=== PATIENT | male | born 1940 | race Caucasian/White ===

== ENCOUNTER → 2017-09-05 12:16 | Outpatient (CLI) | payer MEDICARE, SELFPAY | PROVIDERS: PCP Family Medicine; Visit Provider Urology | DX: R97.20 Elevated prostate specific antigen [PSA] (principal) | CPT/HCPCS: 36415; 84153 ==

== ENCOUNTER 2017-11-19 11:18 | Day surgery (SDC) | payer MEDICARE, OTHER, SELFPAY ==
[2017-11-19] VITALS (7 sets, daily range): BP systolic 99–126; BP diastolic 55–72; PULSE 52–64; RESP 10–16; TEMP 36.3–37.1; O2SAT 94–100; BMI 24.2
--- NOTE | 2017-11-19 | PATH_ITS ---
[facility] Accession Number: [id number] . 01 Material submitted: . CECUM POLYP . 02 Diagnosis: Cecal Polyp: Tubular adenoma. MRV/11/20/2017 . 02 Electronically signed: . Basil Farr MD, PhD, Pathologist NPI- [id number] . 01 Gross description: . Received one formalin-filled container labeled with the patient's name and labeled cecum are three 0.2 to 0.3 cm portions of tissue and possible debris. Filtered, wrapped and entirely submitted in one cassette. ([facility]:[id number]) /[facility] . 02 Pathologist provided ICD-10: D12.0 . 02 CPT . 192879 Specimen Comment: A duplicate report has been generated due to demographic updates. Performed at: 01 [facility] [address] [id number] MD Elder Oakley MD Phone: [phone] [facility]formed at: [facility] [address] [place], [place] [id number] MD Artemio Celis MD Phone: [phone]
[2017-11-19] MEDS: SODIUM CHLORIDE 0.9% 1,000 ML 70 ML IV (11:35)
--- NOTE | 2017-11-19 11:39 | PM.HP.1 ---
History of Present Illness Date Patient Seen: 11/19/17 Chief complaint: [id number] Narrative: 77-year-old male with a history of colon polyps. His last colonoscopy was performed August 2009. Please refer to detailed note from Dr. Campbell on 11/04/2017. He has baseline constipation which he treats with milk of magnesia. Patient History Medical History Bilateral thigh pain (Chronic) Anxiety (Chronic Unknown) Arthritis (Chronic Unknown) Chronic back pain (Chronic 1965) Chronic fatigue (Chronic 2013) Coronary artery disease (Chronic) Depression (Chronic 2015) Erectile dysfunction (Chronic Unknown) Foot pain (Chronic ~2017) Hiatal hernia (Chronic Unknown) Hypercholesterolemia (Chronic Unknown) Hypertension (Chronic Unknown) Parkinson disease (Chronic Unknown) Proximal muscle weakness (Chronic) Chickenpox (Resolved Unknown) Mumps (Resolved Unknown) Surgical History Status post coronary artery bypass graft (Resolved) Status post tonsillectomy and adenoidectomy (Resolved) Family & Social History Tobacco & Substance use: Smoking Status Never smoker Meds Home Medications Medication Instructions Recorded Confirmed Type ASPIRIN (#ASPIRIN) Q DAY #0 09/03/10 11/04/17 History Glucose: Test Strips 0 str BID #100 08/24/12 11/04/17 Rx citalopram [Celexa] 20 mg PO QDAY #90 tab 12/27/16 11/04/17 Rx mirtazapine 45 mg tablet 45 mg PO BEDTIME #90 tab 09/30/17 11/04/17 Rx clonazepam 1 mg tablet 1.5 mg PO BID #270 tab 10/23/17 11/04/17 Rx cyclobenzaprine 10 mg tablet 10 mg PO Q8H PRN #30 tab 11/04/17 Rx pravastatin 20 mg tablet 20 mg PO BEDTIME #30 tab 11/04/17 Rx propranolol 40 mg tablet 20 mg PO BID #45 tab 11/04/17 Rx tamsulosin 0.4 mg capsule 0.4 mg PO DAILY #30 cap 11/04/17 Rx Allergies Allergy/AdvReac Type Severity Reaction Status Date / Time No Known Drug Allergies Allergy Verified 11/04/17 11:04 Review of Systems Review of Systems All systems reviewed & are unremarkable except as noted in HPI and below Exam Narrative Exam Narrative: General: Patient is well developed, not in apparent distress Cardiovascular: Regular rate and rhythm, no murmurs, rubs, or gallops; no evidence of edema; no palpable abdominal aortic aneurysm Gastrointestinal: Normoactive bowel sounds, soft, nontender, nondistended, no rebound tenderness, no hepatosplenomegaly, no evidence of hernia Assessment & Plan Plan: Assessment/Plan Narrative: 77-year-old male with history of Parkinson's who is here for colon polyp surveillance. Last colonoscopy was performed 2009 with removal of 1 adenomatous polyp. The patient currently has no active GI symptoms except for mild baseline constipation. Regarding the procedure(s), the risks and potential complications, benefits, and alternatives (including not doing the procedure) were discussed with the patient. The risks include but are not limited to bleeding, infection, perforation which may require surgical intervention, missed lesions, and adverse reactions to sedative medicines. After a question and answer period, the patient agreed to proceed with the procedure(s) and gives informed consent.
--- NOTE | 2017-11-19 12:12 | PM.OP.ENDO ---
Operative Date/Time/Diagnoses Date of procedure: 11/19/17 Procedure Notes Procedure in detail: Surgeon: Cesar Otto MD Procedure: Colonoscopy with snare polypectomy Preoperative diagnosis: Colon polyp surveillance; last colonoscopy 2009 showing tubular adenoma Postoperative diagnosis: Cecal polyp status post polypectomy, grade 2 internal hemorrhoids Medications: Conscious sedation using 5 mg IV of Midazolam and 150 mcg IV of Fentanyl Preanesthesia Assessment An H and P was performed/updated and the Px?s ASA class is 2. The procedure was discussed in detail with the patient. The potential risks and complications including infection, bleeding, missed lesions, perforation, need for surgery in case of perforation, prolonged hospital stay, and were explained. A brief question and answer period was allotted and once all questions were answered, informed consent was obtained. The patient was brought back to the procedure room and placed on standard monitoring. The patient?s vital signs were monitored continuously throughout the entire procedure. Prior to starting, a timeout was performed to confirm the patient?s identity, allergies, medications, and procedure. Procedure in detail The patient was placed in left lateral decubitus position and once adequate sedation was obtained a PAVEL was performed. The digital rectal examination did not reveal any palpable lesions. The tip of the colonoscope was placed in the anal canal and advanced without difficulty all the way to the cecum which was identified by the appendiceal orifice and the ileocecal valve. The terminal ileum was intubated to a distance of 5 cm from the ileocecal valve and the mucosa was normal. The colonoscope was brought back to the cecum and careful examination of all baldwin of the colon was performed with irrigation of any residual stool. In the cecum, there was note of a 6 mm sessile polyp which was removed using a cold snare. Excision and retrieval were complete with minimal bleeding. The remainder of the colon showed no further polyps. Retroflexion was performed in the rectum which revealed grade 2 internal hemorrhoids. The patient tolerated the procedure well and will be brought back to the recovery area to be discharged once criteria are met. The prep was judged to be excellent and adequate to identify polyps less than 5 mm. The withdrawal time was 9 min. The total physician intraservice time was 18 min. Complications There were no complications and estimated blood loss was minimal. Recommendations: Resume previous diet Continue outPx medications Follow up pathology results Repeat colonoscopy in 5 years. This will be dependent on the patient's medical issues at that time Office follow up on an as-needed basis An emergency contact number was given to the patient for any complications related to the procedure
[2017-11-19] MEDS: MIDAZOLAM 5 MG/5 ML VIAL IV (12:25)
[2017-11-19] MEDS: fentaNYL 250 MCG/5 ML INJ IV (12:26)
--- NOTE | 2017-11-19 12:36 | PM.DS.1 ---
History of Present Illness Chief complaint: [id number] Narrative: 77-year-old male with a history of colon polyps. His last colonoscopy was performed August 2009. Please refer to detailed note from Dr. Campbell on 11/04/2017. He has baseline constipation which he treats with milk of magnesia. Discharge Providers Primary care physician: Raoul Salguero MD Discharge provider: Cesar Otto MD Exam Vital Signs (past 8 hours): - 11/19/17 11:36 Temperature 97.4 F L Pulse Rate 61 Respiratory Rate 15 Blood Pressure 126/72 Pulse Oximetry 94 Oxygen Delivery Method Room Air Narrative Exam Narrative: General: Patient is well developed, not in apparent distress; positive upper extremity tremor Cardiovascular: Regular rate and rhythm, no murmurs, rubs, or gallops; no evidence of edema; no palpable abdominal aortic aneurysm Gastrointestinal: Normoactive bowel sounds, soft, nontender, nondistended, no rebound tenderness, no hepatosplenomegaly, no evidence of hernia Discharge Plan Discharge Plan Patient Disposition: Home Discharge Med Rec/Prescriptions Prescriptions: Continue tamsulosin 0.4 mg capsule 0.4 mg PO DAILY Qty: 30 RF: 2 cyclobenzaprine 10 mg tablet 10 mg PO Q8H PRN (Reason: muscle spasm) Qty: 30 RF: 2 pravastatin 20 mg tablet 20 mg PO BEDTIME Qty: 30 RF: 5 propranolol 40 mg tablet 20 mg PO BID Qty: 45 RF: 3 ASPIRIN (#ASPIRIN) Q DAY Qty: 0 RF: 0 Glucose: Test Strips BID Qty: 100 RF: 5 citalopram [Celexa] 20 MG tablet 20 mg PO QDAY Qty: 90 RF: 2 mirtazapine 45 mg tablet 45 mg PO BEDTIME Qty: 90 RF: 2 clonazepam 1 mg tablet 1.5 mg PO BID Qty: 270 RF: 0 Discharge Orders: Discharge (Order); Ordered 11/19/17 Ordered By: Cesar Otto Provider Discharge Instructions Diet: Diet as Tolerated Visit Report/Discharge Packet Stand Alone Forms: Surgery Discharge Discharge Data Primary Care Provider: Raoul Salguero Attending Provider: Cesar Otto
== END 2017-11-19 13:45 | disposition home or self-care (01) ==
PROVIDERS: PCP Student in an Organized Health Care Education/Training Program; Visit Provider Internal Medicine Gastroenterology
PROC: 0DJD8ZZ Inspection of Lower Intestinal Tract, Via Natural or Artificial Opening Endoscopic (ICD-10-PCS; CPT 45378; principal; 2017-11-19 12:30)
DX: Z86.010 Personal history of colon polyps (principal); K64.1 Second degree hemorrhoids; D12.0 Benign neoplasm of cecum; G20 Parkinson's disease; F41.9 Anxiety disorder, unspecified
CPT/HCPCS: 45380; 88305; J2250; J3010

== ENCOUNTER 2018-01-13 11:00 | Outpatient (RCR) | payer MEDICARE, OTHER, SELFPAY ==
--- NOTE | 2017-12-15 16:03 | PT.OIE ---
Current Diagnoses Parkinson's disease (12/15/17) Past Medical History (Last Updated 11/05/17 @ 11:27 by Raoul Salguero MD) Bilateral thigh pain (Chronic) Anxiety (Chronic Unknown) Arthritis (Chronic Unknown) Chronic back pain (Chronic 1965) Chronic fatigue (Chronic 2014) Coronary artery disease (Chronic) Depression (Chronic 2015) Erectile dysfunction (Chronic Unknown) Foot pain (Chronic ~2017) Hiatal hernia (Chronic Unknown) Hypercholesterolemia (Chronic Unknown) Hypertension (Chronic Unknown) Parkinson disease (Chronic Unknown) Proximal muscle weakness (Chronic) Chickenpox (Resolved Unknown) Mumps (Resolved Unknown) Past Surgical History (Last Updated 11/05/17 @ 11:27 by Raoul Salguero MD) Status post coronary artery bypass graft (Resolved) Status post tonsillectomy and adenoidectomy (Resolved) Provider Visit Care Team Role Provider Type Raoul Salguero MD Primary Care Provider Physician Specialty: Internal Medicine Address: [address] [place] [address], [facility] Email: Marii Soares MD Attending Provider Non-Staff Specialty: Neurology Address: [address] [place] [address], [facility] Email: Physical Therapy Initial Evaluation PT-OP-A Visit Information Start: 12/15/17 12:58 Freq: Status: Active Protocol: Document 12/15/17 13:45 AMB (Rec: 12/15/17 15:33 AMB [email or web address]) Out-Patient Physical Therapy Visit Information Visit Information Visit Type Initial Evaluation Visit Note /10 G code Visit Start Time 13:45 Visit Stop Time 14:45 Total Visit Minutes 60 Visit Number 1 Evaluation Information Evaluation Date 12/15/17 PT-OP-B Current Condition Start: 12/15/17 12:58 Freq: Status: Active Protocol: Document 12/15/17 13:45 AMB (Rec: 12/15/17 15:33 AMB [email or web address]) Current Condition History of Current Condition Onset Date 5 years ago Current Complaints Difficulty shaving, chopping food, walking and eating quickly History of Current Condition The patient was diagnosed with Parkinson's disease about 5 years ago. He lives with his in a 2 story home (spiral staircase) with 1 step to enter without a railing. He is right hand dominant with an intention tremor bilaterally worse on the right. He ambulates without assistive device with no reported falls. Prior Functional Status Baseline Function- ADL's Independent Baseline Function- Mobility Independent Baseline Function- Work/School Retired but drives Baseline Function- Recreation/Hobbies Stopped going to the gym due to fatigue Current Functional Impairments (Reported) Functional Limitations- ADL's Difficulty shaving, brushing his teeth due to the tremor Personal Factors Other Personal Factors That May Effect History of stent placement Therapy/Recovery about 10 years ago, back pain, right shoulder pain, bilateral foot and knee pain, neck pain. PT-OP-C Subjective Start: 12/15/17 12:58 Freq: Status: Active Protocol: Document 12/15/17 13:45 AMB (Rec: 12/15/17 15:33 AMB [email or web address]) Patient Questionnaires Lower Extremity Functional Scale LEFS Score 63 LEFS Impairment 1 to 19% Impaired (Score 63-79 ) Quick Dash- Upper Extremity Quick Dash UE Score 32 Quick Dash UE Impairment 20 to 39% Impaired (Score 20- 39) PT-OP-E Functional Tests Start: 12/15/17 12:58 Freq: Status: Active Protocol: Document 12/15/17 13:45 AMB (Rec: 12/15/17 15:40 AMB [email or web address]) Functional Tests 6 Minute Walk Test Distance 1343 Device Used none Comments age gender norm: [age] Five Times Sit to Stand Test Score 9 Comments without UE support PT-OP-G Mobility & Gait Start: 12/15/17 12:58 Freq: Status: Active Protocol: Document 12/15/17 13:45 AMB (Rec: 12/15/17 15:40 AMB [email or web address]) OP Gait Assessment Comments Gait Comments Internally rotates shoulders with lack of shoulder extension with arm swing. Pt had one moment of tripping over his R toe but regained his balance independently. PT-OP-H Neuro Start: 12/15/17 12:58 Freq: Status: Active Protocol: Document 12/15/17 13:45 AMB (Rec: 12/15/17 15:40 AMB [email or web address]) Muscle Tone Tone Assessment Right Upper Extremity Manifestations of Tone Intention Tremors Left Upper Extremity Manifestations of Tone Intention Tremors Right Lower Extremity Flexor Tone Description Rigidity Left Lower Extremity Flexor Tone Description Rigidity PT-OP-J Posture/Palpation/Skin Start: 12/15/17 12:58 Freq: Status: Active Protocol: Document 12/15/17 13:45 AMB (Rec: 12/15/17 15:40 AMB [email or web address]) Posture Evaluation Comments Posture Comments Forward head, rounded shoulders, flat lumbar spine PT-OP-K Range of Motion Start: 12/15/17 12:58 Freq: Status: Active Protocol: Document 12/15/17 13:45 AMB (Rec: 12/15/17 15:40 AMB [email or web address]) Shoulder Goniometric Range of Motion Shoulder Measured in Degrees Right Passive Testing Position Supine Flexion 140 Left Passive Testing Position Supine Flexion 156 PT-OP-M Strength Start: 12/15/17 12:58 Freq: Status: Active Protocol: Document 12/15/17 13:45 AMB (Rec: 12/15/17 15:40 AMB [email or web address]) Hand Elastic Yarn Twister/Pinch Strength Hand Dominance Hand Dominance Right Hand Strength Right Elastic Yarn Twister (lbs) 80 Left Elastic Yarn Twister (lbs) 75 Hip Strength Hip Manual Muscle Testing Right Flexion (L2) 3+ Fair+ Extension (S1) 3 Fair Abduction 3 Fair Left Flexion (L2) 4- Good- Extension (S1) 4- Good- Abduction 4- Good- Knee Strength Knee Manual Muscle Testing Right Flexion (S2) 4 Good Extension (L3) 4 Good Left Flexion (S2) 4 Good Extension (L3) 4 Good Ankle/Foot Strength Ankle and Foot Manual Muscle Testing Right Dorsiflexion (L4) 4 Good Plantarflexion (S1) 4- Good- Left Dorsiflexion (L4) 4 Good Plantarflexion (S1) 4- Good- PT-OP-T Assessment and Plan Start: 12/15/17 12:58 Freq: Status: Active Protocol: Document 12/15/17 13:45 AMB (Rec: 12/15/17 15:42 AMB [email or web address]) Physical Therapy Assessment Rehab Potential Rehabilitation Potential Good Evaluation Complexity Number of Personal Factors/Comorbidities 3 or More Number of Body Systems Impaired 4 or More Clinical Presentation at Evaluation Evolving Impairments Impairments Functional Activities Functional Mobility Gait Pain ROM Strength Goals Four Impairment UE flexibility Short Term Goal (STG) The patient will improve his bilateral shoulder flexion to 160 degrees. STG Duration 2 weeks Three Impairment LE strength Short Term Goal (STG) The patient will improve his 5x sit to stand to 6 seconds. STG Duration 2 weeks Long-Term Goal (LTG) The patient will be independent with a HEP to improve LE strenght and dynamic stability. LTG Duration 5 weeks Two Impairment self care Short Term Goal (STG) The patient will improve his fine motor coordination so that he is able to eat a meal in the same time as his , he may need to use weighted utensils. STG Duration 2 weeks One Impairment gait Short Term Goal (STG) The patient will ambulate throughout the grocery store for 30 minutes without fatigue . STG Duration 2 weeks Office Director Goal (LTG) The patient will improve his 6MWT to 1,500 feet to have more socially appropriate walking speed. LTG Duration 5 weeks Assessment Summary Assessment The patient attends PT for LSVT Big therapy, noting decreased activity tolerance, walking speed, and difficulty with fine motor activities including writing, eating, shaving, and brushing his teeth. He has a history of spine and joint pain, and a cardiac stent history. This is an excellent time for BIG training, as he is not yet falling or using an assistive device, but he is below average in walking speed, has stiffness, increased rigidity, and difficulty with fine motor activities. Physical Therapy Plan Frequency and Duration Frequency of Treatment 4x/Week Duration of Treatment 5 weeks (due to break) Plan of Care Start Date 12/15/17 Plan of Care End Date 01/19/18 Therapeutic Interventions Therapeutic Interventions Balance Training Gait Training Home Exercise Program Manual Therapy Neuromuscular Re-education Self-Care/Home Management Therapeutic Activities Therapeutic Exercises Next Visit Focus/Plan Next Note Type Treatment Note Next Visit Plan Begin LSVT Big treatment
--- NOTE | 2017-12-15 16:04 | PT.OPPOC ---
Current Diagnoses Parkinson's disease (12/15/17) Provider Visit Care Team Role Provider Type Raoul Salguero MD Primary Care Provider Physician Specialty: Internal Medicine Address: [address] [place] [address], [id number] Email: Marii Soares MD Attending Provider Non-Staff Specialty: Neurology Address: [address] [place] [address], [id number] Email: Plan Of Care PT-OP-T Assessment and Plan Start: 12/15/17 12:58 Freq: Status: Active Protocol: Document 12/15/17 13:45 AMB (Rec: 12/15/17 15:42 AMB [email or web address]) Physical Therapy Assessment Rehab Potential Rehabilitation Potential Good Evaluation Complexity Number of Personal Factors/Comorbidities 3 or More Number of Body Systems Impaired 4 or More Clinical Presentation at Evaluation Evolving Impairments Impairments Functional Activities Functional Mobility Gait Pain ROM Strength Goals Four Impairment UE flexibility Short Term Goal (STG) The patient will improve his bilateral shoulder flexion to 160 degrees. STG Duration 2 weeks Three Impairment LE strength Short Term Goal (STG) The patient will improve his 5x sit to stand to 6 seconds. STG Duration 2 weeks [facility] Goal (LTG) The patient will be independent with a HEP to improve LE strenght and dynamic stability. LTG Duration 5 weeks Two Impairment self care Short Term Goal (STG) The patient will improve his fine motor coordination so that he is able to eat a meal in the same time as his , he may need to use weighted utensils. STG Duration 2 weeks One Impairment gait Short Term Goal (STG) The patient will ambulate throughout the grocery store for 30 minutes without fatigue . STG Duration 2 weeks [facility] Goal (LTG) The patient will improve his 6MWT to 1,500 feet to have more socially appropriate walking speed. LTG Duration 5 weeks Assessment Summary Assessment The patient attends PT for LSVT Big therapy, noting decreased activity tolerance, walking speed, and difficulty with fine motor activities including writing, eating, shaving, and brushing his teeth. He has a history of spine and joint pain, and a cardiac stent history. This is an excellent time for BIG training, as he is not yet falling or using an assistive device, but he is below average in walking speed, has stiffness, increased rigidity, and difficulty with fine motor activities. Physical Therapy Plan Frequency and Duration Frequency of Treatment 4x/Week Duration of Treatment 5 weeks (due to gi break) Plan of Care Start Date 12/15/17 Plan of Care End Date 01/19/18 Therapeutic Interventions Therapeutic Interventions Balance Training Gait Training Home Exercise Program Manual Therapy Neuromuscular Re-education Self-Care/Home Management Therapeutic Activities Therapeutic Exercises Next Visit Focus/Plan Next Note Type Treatment Note Next Visit Plan Begin LSVT Big treatment Plan of Care Dates Plan of Care Start Date 12/15/17 Plan of Care End Date 01/19/18 Please Sign and Return: I have reviewed this Plan of Care and certify that the skilled therapy services above are required to meet the patient?s needs. Physician Signature Date Printed Name and Credentials Clinical Instructor Signature Printed Name and Credentials
--- NOTE | 2017-12-16 15:58 | PT.OTN ---
Current Diagnoses Parkinson's disease (12/16/17) Physical Therapy Treatment Note PT-OP-A Visit Information Start: 12/15/17 12:58 Freq: Status: Active Protocol: Document 12/16/17 11:00 AMB (Rec: 12/16/17 15:52 AMB [email or web address]) Out-Patient Physical Therapy Visit Information Visit Information Visit Type Treatment Note Visit Note 03/29 Visit Start Time 11:05 Visit Stop Time 12:00 Total Visit Minutes 55 Visit Number 2 Evaluation Information Evaluation Date 12/15/17 PT-OP-B Current Condition Start: 12/15/17 12:58 Freq: Status: Active Protocol: Document 12/15/17 13:45 AMB (Rec: 12/15/17 15:33 AMB [email or web address]) Current Condition History of Current Condition Onset Date 5 years ago Current Complaints Difficulty shaving, chopping food, walking and eating quickly History of Current Condition The patient was diagnosed with Parkinson's disease about 5 years ago. He lives with his in a 2 story home (spiral staircase) with 1 step to enter without a railing. He is right hand dominant with an intention tremor bilaterally worse on the right. He ambulates without assistive device with no reported falls. Prior Functional Status Baseline Function- ADL's Independent Baseline Function- Mobility Independent Baseline Function- Work/School Retired but drives Baseline Function- Recreation/Hobbies Stopped going to the gym due to fatigue Current Functional Impairments (Reported) Functional Limitations- ADL's Difficulty shaving, brushing his teeth due to the tremor Personal Factors Other Personal Factors That May Effect History of stent placement Therapy/Recovery about 10 years ago, back pain, right shoulder pain, bilateral foot and knee pain, neck pain. PT-OP-C Subjective Start: 12/15/17 12:58 Freq: Status: Active Protocol: Document 12/16/17 11:00 AMB (Rec: 12/16/17 15:52 AMB [email or web address]) OP-PT Subjective Patient Comments Patient Comments Pt states he was a bit sore after last visit, in his thighs, otherwise is doing well. PT-OP-E Functional Tests Start: 12/15/17 12:58 Freq: Status: Active Protocol: Document 12/15/17 13:45 AMB (Rec: 12/15/17 15:40 AMB [email or web address]) Functional Tests 6 Minute Walk Test Distance 1343 Device Used none Comments age gender norm: [age] Five Times Sit to Stand Test Score 9 Comments without UE support PT-OP-G Mobility & Gait Start: 12/15/17 12:58 Freq: Status: Active Protocol: Document 12/15/17 13:45 AMB (Rec: 12/15/17 15:40 AMB [email or web address]) OP Gait Assessment Comments Gait Comments Internally rotates shoulders with lack of shoulder extension with arm swing. Pt had one moment of tripping over his R toe but regained his balance independently. PT-OP-H Neuro Start: 12/15/17 12:58 Freq: Status: Active Protocol: Document 12/15/17 13:45 AMB (Rec: 12/15/17 15:40 AMB [email or web address]) Muscle Tone Tone Assessment Right Upper Extremity Manifestations of Tone Intention Tremors Left Upper Extremity Manifestations of Tone Intention Tremors Right Lower Extremity Flexor Tone Description Rigidity Left Lower Extremity Flexor Tone Description Rigidity PT-OP-J Posture/Palpation/Skin Start: 12/15/17 12:58 Freq: Status: Active Protocol: Document 12/15/17 13:45 AMB (Rec: 12/15/17 15:40 AMB [email or web address]) Posture Evaluation Comments Posture Comments Forward head, rounded shoulders, flat lumbar spine PT-OP-K Range of Motion Start: 12/15/17 12:58 Freq: Status: Active Protocol: Document 12/15/17 13:45 AMB (Rec: 12/15/17 15:40 AMB [email or web address]) Shoulder Goniometric Range of Motion Shoulder Measured in Degrees Right Passive Testing Position Supine Flexion 140 Left Passive Testing Position Supine Flexion 156 PT-OP-M Strength Start: 12/15/17 12:58 Freq: Status: Active Protocol: Document 12/15/17 13:45 AMB (Rec: 12/15/17 15:40 AMB [email or web address]) Hand Rn Appeals/Pinch Strength Hand Dominance Hand Dominance Right Hand Strength Right Rn Appeals (lbs) 80 Left Rn Appeals (lbs) 75 Hip Strength Hip Manual Muscle Testing Right Flexion (L2) 3+ Fair+ Extension (S1) 3 Fair Abduction 3 Fair Left Flexion (L2) 4- Good- Extension (S1) 4- Good- Abduction 4- Good- Knee Strength Knee Manual Muscle Testing Right Flexion (S2) 4 Good Extension (L3) 4 Good Left Flexion (S2) 4 Good Extension (L3) 4 Good Ankle/Foot Strength Ankle and Foot Manual Muscle Testing Right Dorsiflexion (L4) 4 Good Plantarflexion (S1) 4- Good- Left Dorsiflexion (L4) 4 Good Plantarflexion (S1) 4- Good- PT-OP-Q Treatments Start: 12/15/17 12:58 Freq: Status: Active Protocol: Document 12/16/17 11:00 AMB (Rec: 12/16/17 15:52 AMB [email or web address]) Therapeutic Exercises Sitting Exercises 1 Sitting Exercise Name chin tuck Comments vc for posture first Therapeutic Activity Therapeutic Activity 2 Name handwriting Comments forearm support, big, stretch first, big pen 1 Name Sit to stand Reps/Minutes 10 Comments without UE support Neuro Re-Education Treatment Balance Activities 5 Details Backward step and reach Reps/Duration 10x2 4 Details Side step and reach Reps/Duration 10x2 3 Details Forward step and reach Reps/Duration 10x2 Comments No UE assist 2 Details [place] and reach- sideways Reps/Duration 12x2 Comments No UE assist 1 Details [place] and reach- forward Reps/Duration 12x2 Comments No UE assist Other Activities 2 Details Side to side Reps/Duration 8 1 Details Floor to ceiling Reps/Duration 8 PT-OP-T Assessment and Plan Start: 12/15/17 12:58 Freq: Status: Active Protocol: Document 12/16/17 11:00 AMB (Rec: 12/16/17 15:58 AMB [email or web address]) Physical Therapy Assessment Assessment Summary Assessment Pt tolerated exercises well, will continue to need cueing for self awareness of appropriate amplitude. Physical Therapy Plan Next Visit Focus/Plan Next Note Type Treatment Note Next Visit Plan Progress fine motor activities .
--- NOTE | 2017-12-17 15:13 | PT.OTN ---
Current Diagnoses Parkinson's disease (12/17/17) Physical Therapy Treatment Note PT-OP-A Visit Information Start: 12/15/17 12:58 Freq: Status: Active Protocol: Document 12/17/17 14:58 AMB (Rec: 12/17/17 15:12 AMB [email or web address]) Out-Patient Physical Therapy Visit Information Visit Information Visit Type Treatment Note Visit Note 04/26 Visit Start Time 13:45 Visit Stop Time 14:45 Total Visit Minutes 60 Visit Number 3 Evaluation Information Evaluation Date 12/15/17 PT-OP-B Current Condition Start: 12/15/17 12:58 Freq: Status: Active Protocol: Document 12/15/17 13:45 AMB (Rec: 12/15/17 15:33 AMB [email or web address]) Current Condition History of Current Condition Onset Date 5 years ago Current Complaints Difficulty shaving, chopping food, walking and eating quickly History of Current Condition The patient was diagnosed with Parkinson's disease about 5 years ago. He lives with his in a 2 story home (spiral staircase) with 1 step to enter without a railing. He is right hand dominant with an intention tremor bilaterally worse on the right. He ambulates without assistive device with no reported falls. Prior Functional Status Baseline Function- ADL's Independent Baseline Function- Mobility Independent Baseline Function- Work/School Retired but drives Baseline Function- Recreation/Hobbies Stopped going to the gym due to fatigue Current Functional Impairments (Reported) Functional Limitations- ADL's Difficulty shaving, brushing his teeth due to the tremor Personal Factors Other Personal Factors That May Effect History of stent placement Therapy/Recovery about 10 years ago, back pain, right shoulder pain, bilateral foot and knee pain, neck pain. PT-OP-C Subjective Start: 12/15/17 12:58 Freq: Status: Active Protocol: Document 12/17/17 14:58 AMB (Rec: 12/17/17 15:12 AMB [email or web address]) OP-PT Subjective Patient Comments Patient Comments Pt states he did his exercises yesterday. They went ok after awhile. PT-OP-E Functional Tests Start: 12/15/17 12:58 Freq: Status: Active Protocol: Document 12/15/17 13:45 AMB (Rec: 12/15/17 15:40 AMB [email or web address]) Functional Tests 6 Minute Walk Test Distance 1343 Device Used none Comments age gender norm: [age] Five Times Sit to Stand Test Score 9 Comments without UE support PT-OP-G Mobility & Gait Start: 12/15/17 12:58 Freq: Status: Active Protocol: Document 12/15/17 13:45 AMB (Rec: 12/15/17 15:40 AMB [email or web address]) OP Gait Assessment Comments Gait Comments Internally rotates shoulders with lack of shoulder extension with arm swing. Pt had one moment of tripping over his R toe but regained his balance independently. PT-OP-H Neuro Start: 12/15/17 12:58 Freq: Status: Active Protocol: Document 12/15/17 13:45 AMB (Rec: 12/15/17 15:40 AMB [email or web address]) Muscle Tone Tone Assessment Right Upper Extremity Manifestations of Tone Intention Tremors Left Upper Extremity Manifestations of Tone Intention Tremors Right Lower Extremity Flexor Tone Description Rigidity Left Lower Extremity Flexor Tone Description Rigidity PT-OP-J Posture/Palpation/Skin Start: 12/15/17 12:58 Freq: Status: Active Protocol: Document 12/15/17 13:45 AMB (Rec: 12/15/17 15:40 AMB [email or web address]) Posture Evaluation Comments Posture Comments Forward head, rounded shoulders, flat lumbar spine PT-OP-K Range of Motion Start: 12/15/17 12:58 Freq: Status: Active Protocol: Document 12/15/17 13:45 AMB (Rec: 12/15/17 15:40 AMB [email or web address]) Shoulder Goniometric Range of Motion Shoulder Measured in Degrees Right Passive Testing Position Supine Flexion 140 Left Passive Testing Position Supine Flexion 156 PT-OP-M Strength Start: 12/15/17 12:58 Freq: Status: Active Protocol: Document 12/15/17 13:45 AMB (Rec: 12/15/17 15:40 AMB [email or web address]) Hand Lbd Teacher/Pinch Strength Hand Dominance Hand Dominance Right Hand Strength Right Lbd Teacher (lbs) 80 Left Lbd Teacher (lbs) 75 Hip Strength Hip Manual Muscle Testing Right Flexion (L2) 3+ Fair+ Extension (S1) 3 Fair Abduction 3 Fair Left Flexion (L2) 4- Good- Extension (S1) 4- Good- Abduction 4- Good- Knee Strength Knee Manual Muscle Testing Right Flexion (S2) 4 Good Extension (L3) 4 Good Left Flexion (S2) 4 Good Extension (L3) 4 Good Ankle/Foot Strength Ankle and Foot Manual Muscle Testing Right Dorsiflexion (L4) 4 Good Plantarflexion (S1) 4- Good- Left Dorsiflexion (L4) 4 Good Plantarflexion (S1) 4- Good- PT-OP-Q Treatments Start: 12/15/17 12:58 Freq: Status: Active Protocol: Document 12/17/17 14:58 AMB (Rec: 12/17/17 15:12 AMB [email or web address]) Therapeutic Activity Therapeutic Activity 3 Name theraputty Reps/Minutes green Comments finger extension 2 Name handwriting Comments forearm support, big, stretch first, big pen 1 Name Sit to stand Reps/Minutes 10 Comments without UE support Gait Training Gait Activity 2 Description ascend descend stairs Distance/Duration 2 flights Comments without railings SBA 1 Description ambulating over smooth surface Device Used none Comments cueing to increase trunk rotation Neuro Re-Education Treatment Balance Activities 5 Details Backward step and reach Reps/Duration 10x2 4 Details Side step and reach Reps/Duration 10x2 3 Details Forward step and reach Reps/Duration 10x2 Comments No UE assist 2 Details [place] and reach- sideways Reps/Duration 12x2 Comments No UE assist 1 Details [place] and reach- forward Reps/Duration 12x2 Comments No UE assist Other Activities 2 Details Side to side Reps/Duration 8 1 Details Floor to ceiling Reps/Duration 8 PT-OP-T Assessment and Plan Start: 12/15/17 12:58 Freq: Status: Active Protocol: Document 12/17/17 14:58 AMB (Rec: 12/17/17 15:12 AMB [email or web address]) Physical Therapy Assessment Assessment Summary Assessment Pt required less cueing today. One misstep with gait with toe catching. Physical Therapy Plan Next Visit Focus/Plan Next Note Type Treatment Note Next Visit Plan Progress fine motor activities .
--- NOTE | 2017-12-19 15:00 | PT.OTN ---
Current Diagnoses Parkinson's disease (12/19/17) Physical Therapy Treatment Note PT-OP-A Visit Information Start: 12/15/17 12:58 Freq: Status: Active Protocol: Document 12/19/17 13:45 AMB (Rec: 12/19/17 13:53 AMB [email or web address]) Out-Patient Physical Therapy Visit Information Visit Information Visit Type Treatment Note Visit Note 05/27 Visit Start Time 13:45 Visit Stop Time 14:45 Total Visit Minutes 60 Visit Number 4 PT-OP-B Current Condition Start: 12/15/17 12:58 Freq: Status: Active Protocol: Document 12/15/17 13:45 AMB (Rec: 12/15/17 15:33 AMB [email or web address]) Current Condition History of Current Condition Onset Date 5 years ago Current Complaints Difficulty shaving, chopping food, walking and eating quickly History of Current Condition The patient was diagnosed with Parkinson's disease about 5 years ago. He lives with his in a 2 story home (spiral staircase) with 1 step to enter without a railing. He is right hand dominant with an intention tremor bilaterally worse on the right. He ambulates without assistive device with no reported falls. Prior Functional Status Baseline Function- ADL's Independent Baseline Function- Mobility Independent Baseline Function- Work/School Retired but drives Baseline Function- Recreation/Hobbies Stopped going to the gym due to fatigue Current Functional Impairments (Reported) Functional Limitations- ADL's Difficulty shaving, brushing his teeth due to the tremor Personal Factors Other Personal Factors That May Effect History of stent placement Therapy/Recovery about 10 years ago, back pain, right shoulder pain, bilateral foot and knee pain, neck pain. PT-OP-C Subjective Start: 12/15/17 12:58 Freq: Status: Active Protocol: Document 12/19/17 13:45 AMB (Rec: 12/19/17 13:53 AMB [email or web address]) OP-PT Subjective Patient Comments Patient Comments Pt did exercises 2x yesterday. PT-OP-E Functional Tests Start: 12/15/17 12:58 Freq: Status: Active Protocol: Document 12/15/17 13:45 AMB (Rec: 12/15/17 15:40 AMB [email or web address]) Functional Tests 6 Minute Walk Test Distance 1343 Device Used none Comments age gender norm: [age] Five Times Sit to Stand Test Score 9 Comments without UE support PT-OP-G Mobility & Gait Start: 12/15/17 12:58 Freq: Status: Active Protocol: Document 12/15/17 13:45 AMB (Rec: 12/15/17 15:40 AMB [email or web address]) OP Gait Assessment Comments Gait Comments Internally rotates shoulders with lack of shoulder extension with arm swing. Pt had one moment of tripping over his R toe but regained his balance independently. PT-OP-H Neuro Start: 12/15/17 12:58 Freq: Status: Active Protocol: Document 12/15/17 13:45 AMB (Rec: 12/15/17 15:40 AMB [email or web address]) Muscle Tone Tone Assessment Right Upper Extremity Manifestations of Tone Intention Tremors Left Upper Extremity Manifestations of Tone Intention Tremors Right Lower Extremity Flexor Tone Description Rigidity Left Lower Extremity Flexor Tone Description Rigidity PT-OP-J Posture/Palpation/Skin Start: 12/15/17 12:58 Freq: Status: Active Protocol: Document 12/15/17 13:45 AMB (Rec: 12/15/17 15:40 AMB [email or web address]) Posture Evaluation Comments Posture Comments Forward head, rounded shoulders, flat lumbar spine PT-OP-K Range of Motion Start: 12/15/17 12:58 Freq: Status: Active Protocol: Document 12/15/17 13:45 AMB (Rec: 12/15/17 15:40 AMB [email or web address]) Shoulder Goniometric Range of Motion Shoulder Measured in Degrees Right Passive Testing Position Supine Flexion 140 Left Passive Testing Position Supine Flexion 156 PT-OP-M Strength Start: 12/15/17 12:58 Freq: Status: Active Protocol: Document 12/15/17 13:45 AMB (Rec: 12/15/17 15:40 AMB [email or web address]) Hand [employer]/Pinch Strength Hand Dominance Hand Dominance Right Hand Strength Right [employer] (lbs) 80 Left [employer] (lbs) 75 Hip Strength Hip Manual Muscle Testing Right Flexion (L2) 3+ Fair+ Extension (S1) 3 Fair Abduction 3 Fair Left Flexion (L2) 4- Good- Extension (S1) 4- Good- Abduction 4- Good- Knee Strength Knee Manual Muscle Testing Right Flexion (S2) 4 Good Extension (L3) 4 Good Left Flexion (S2) 4 Good Extension (L3) 4 Good Ankle/Foot Strength Ankle and Foot Manual Muscle Testing Right Dorsiflexion (L4) 4 Good Plantarflexion (S1) 4- Good- Left Dorsiflexion (L4) 4 Good Plantarflexion (S1) 4- Good- PT-OP-Q Treatments Start: 12/15/17 12:58 Freq: Status: Active Protocol: Document 12/19/17 13:45 AMB (Rec: 12/21/17 10:41 AMB [email or web address]) Therapeutic Exercises Supine Exercises 1 Supine Exercise Name chin tuck Reps/Minutes 5x10 Standing Exercises 4 Standing Exercise Name rows t band Resistance #3 Reps/Minutes 2x10 3 Standing Exercise Name doorway stretch Reps/Minutes 30x2 Comments pecs 2 Standing Exercise Name calf stretch Reps/Minutes 30x2 1 Standing Exercise Name hamstring stretch Reps/Minutes 30x2 Therapeutic Activity Therapeutic Activity 1 Name Sit to stand Reps/Minutes 10 Comments without UE support Neuro Re-Education Treatment Balance Activities 5 Details Backward step and reach Reps/Duration 10x2 4 Details Side step and reach Reps/Duration 10x2 3 Details Forward step and reach Reps/Duration 10x2 Comments No UE assist 2 Details [place] and reach- sideways Reps/Duration 12x2 Comments No UE assist 1 Details [place] and reach- forward Reps/Duration 12x2 Comments No UE assist Other Activities 2 Details Side to side Reps/Duration 8 1 Details Floor to ceiling Reps/Duration 8 PT-OP-T Assessment and Plan Start: 12/15/17 12:58 Freq: Status: Active Protocol: Document 12/19/17 13:45 AMB (Rec: 12/21/17 10:41 AMB [email or web address]) Physical Therapy Assessment Assessment Summary Assessment Pt does better when cued but carryover into functional activities needs to improve still. Physical Therapy Plan Next Visit Focus/Plan Next Note Type Treatment Note Next Visit Plan Progress fine motor activities , dynamic stability
--- NOTE | 2017-12-24 14:52 | PT.OTN ---
Current Diagnoses Parkinson's disease (12/24/17) Physical Therapy Treatment Note PT-OP-A Visit Information Start: 12/15/17 12:58 Freq: Status: Active Protocol: Document 12/24/17 13:45 AMB (Rec: 12/24/17 14:52 AMB [email or web address]) Out-Patient Physical Therapy Visit Information Visit Information Visit Type Treatment Note Visit Note 06/26 Visit Start Time 13:45 Visit Stop Time 14:45 Total Visit Minutes 60 Visit Number 5 Evaluation Information Evaluation Date 12/15/17 PT-OP-B Current Condition Start: 12/15/17 12:58 Freq: Status: Active Protocol: Document 12/15/17 13:45 AMB (Rec: 12/15/17 15:33 AMB [email or web address]) Current Condition History of Current Condition Onset Date 5 years ago Current Complaints Difficulty shaving, chopping food, walking and eating quickly History of Current Condition The patient was diagnosed with Parkinson's disease about 5 years ago. He lives with his in a 2 story home (spiral staircase) with 1 step to enter without a railing. He is right hand dominant with an intention tremor bilaterally worse on the right. He ambulates without assistive device with no reported falls. Prior Functional Status Baseline Function- ADL's Independent Baseline Function- Mobility Independent Baseline Function- Work/School Retired but drives Baseline Function- Recreation/Hobbies Stopped going to the gym due to fatigue Current Functional Impairments (Reported) Functional Limitations- ADL's Difficulty shaving, brushing his teeth due to the tremor Personal Factors Other Personal Factors That May Effect History of stent placement Therapy/Recovery about 10 years ago, back pain, right shoulder pain, bilateral foot and knee pain, neck pain. PT-OP-C Subjective Start: 12/15/17 12:58 Freq: Status: Active Protocol: Document 12/24/17 13:45 AMB (Rec: 12/24/17 14:52 AMB [email or web address]) OP-PT Subjective Patient Comments Patient Comments Pt has been doing some of his exercises, continues to notice tremor impacting fine motor activities. PT-OP-E Functional Tests Start: 12/15/17 12:58 Freq: Status: Active Protocol: Document 12/15/17 13:45 AMB (Rec: 12/15/17 15:40 AMB [email or web address]) Functional Tests 6 Minute Walk Test Distance 1343 Device Used none Comments age gender norm: [age] Five Times Sit to Stand Test Score 9 Comments without UE support PT-OP-G Mobility & Gait Start: 12/15/17 12:58 Freq: Status: Active Protocol: Document 12/15/17 13:45 AMB (Rec: 12/15/17 15:40 AMB [email or web address]) OP Gait Assessment Comments Gait Comments Internally rotates shoulders with lack of shoulder extension with arm swing. Pt had one moment of tripping over his R toe but regained his balance independently. PT-OP-H Neuro Start: 12/15/17 12:58 Freq: Status: Active Protocol: Document 12/15/17 13:45 AMB (Rec: 12/15/17 15:40 AMB [email or web address]) Muscle Tone Tone Assessment Right Upper Extremity Manifestations of Tone Intention Tremors Left Upper Extremity Manifestations of Tone Intention Tremors Right Lower Extremity Flexor Tone Description Rigidity Left Lower Extremity Flexor Tone Description Rigidity PT-OP-J Posture/Palpation/Skin Start: 12/15/17 12:58 Freq: Status: Active Protocol: Document 12/15/17 13:45 AMB (Rec: 12/15/17 15:40 AMB [email or web address]) Posture Evaluation Comments Posture Comments Forward head, rounded shoulders, flat lumbar spine PT-OP-K Range of Motion Start: 12/15/17 12:58 Freq: Status: Active Protocol: Document 12/15/17 13:45 AMB (Rec: 12/15/17 15:40 AMB [email or web address]) Shoulder Goniometric Range of Motion Shoulder Measured in Degrees Right Passive Testing Position Supine Flexion 140 Left Passive Testing Position Supine Flexion 156 PT-OP-M Strength Start: 12/15/17 12:58 Freq: Status: Active Protocol: Document 12/15/17 13:45 AMB (Rec: 12/15/17 15:40 AMB [email or web address]) Hand Phys Asst/Pinch Strength Hand Dominance Hand Dominance Right Hand Strength Right Phys Asst (lbs) 80 Left Phys Asst (lbs) 75 Hip Strength Hip Manual Muscle Testing Right Flexion (L2) 3+ Fair+ Extension (S1) 3 Fair Abduction 3 Fair Left Flexion (L2) 4- Good- Extension (S1) 4- Good- Abduction 4- Good- Knee Strength Knee Manual Muscle Testing Right Flexion (S2) 4 Good Extension (L3) 4 Good Left Flexion (S2) 4 Good Extension (L3) 4 Good Ankle/Foot Strength Ankle and Foot Manual Muscle Testing Right Dorsiflexion (L4) 4 Good Plantarflexion (S1) 4- Good- Left Dorsiflexion (L4) 4 Good Plantarflexion (S1) 4- Good- PT-OP-Q Treatments Start: 12/15/17 12:58 Freq: Status: Active Protocol: Document 12/24/17 13:45 AMB (Rec: 12/24/17 14:52 AMB [email or web address]) Therapeutic Exercises Supine Exercises 2 Supine Exercise Name quad stretch Reps/Minutes 30x2 Sitting Exercises 1 Sitting Exercise Name chin tuck Comments vc for posture first Standing Exercises 3 Standing Exercise Name doorway stretch Reps/Minutes 30x2 Comments pecs Therapeutic Activity Therapeutic Activity 1 Name Sit to stand Reps/Minutes 10 Comments without UE support Gait Training Gait Activity 2 Description ascend descend stairs Distance/Duration 2 flights Comments without railings SBA 1 Description ambulating over smooth surface Device Used none Comments cueing to increase trunk rotation Neuro Re-Education Treatment Balance Activities 5 Details Backward step and reach Reps/Duration 10x2 4 Details Side step and reach Reps/Duration 10x2 3 Details Forward step and reach Reps/Duration 10x2 Comments No UE assist 2 Details [place] and reach- sideways Reps/Duration 12x2 Comments No UE assist 1 Details [place] and reach- forward Reps/Duration 12x2 Comments No UE assist Other Activities 2 Details Side to side Reps/Duration 8 1 Details Floor to ceiling Reps/Duration 8 PT-OP-T Assessment and Plan Start: 12/15/17 12:58 Freq: Status: Active Protocol: Document 12/24/17 13:45 AMB (Rec: 12/24/17 14:52 AMB [email or web address]) Physical Therapy Assessment Assessment Summary Assessment Better carryover with gait todyay. Physical Therapy Plan Therapeutic Interventions Therapeutic Interventions Balance Training Gait Training Home Exercise Program Manual Therapy Neuromuscular Re-education Self-Care/Home Management Therapeutic Activities Therapeutic Exercises Next Visit Focus/Plan Next Note Type Treatment Note Next Visit Plan Progress fine motor activities , dynamic stability
--- NOTE | 2017-12-25 15:32 | PT.OTN ---
Current Diagnoses Parkinson's disease (12/25/17) Physical Therapy Treatment Note PT-OP-A Visit Information Start: 12/15/17 12:58 Freq: Status: Active Protocol: Document 12/25/17 13:45 AMB (Rec: 12/25/17 15:30 AMB [email or web address]) Out-Patient Physical Therapy Visit Information Evaluation Information Evaluation Date 12/15/17 PT-OP-B Current Condition Start: 12/15/17 12:58 Freq: Status: Active Protocol: Document 12/15/17 13:45 AMB (Rec: 12/15/17 15:33 AMB [email or web address]) Current Condition History of Current Condition Onset Date 5 years ago Current Complaints Difficulty shaving, chopping food, walking and eating quickly History of Current Condition The patient was diagnosed with Parkinson's disease about 5 years ago. He lives with his in a 2 story home (spiral staircase) with 1 step to enter without a railing. He is right hand dominant with an intention tremor bilaterally worse on the right. He ambulates without assistive device with no reported falls. Prior Functional Status Baseline Function- ADL's Independent Baseline Function- Mobility Independent Baseline Function- Work/School Retired but drives Baseline Function- Recreation/Hobbies Stopped going to the gym due to fatigue Current Functional Impairments (Reported) Functional Limitations- ADL's Difficulty shaving, brushing his teeth due to the tremor Personal Factors Other Personal Factors That May Effect History of stent placement Therapy/Recovery about 10 years ago, back pain, right shoulder pain, bilateral foot and knee pain, neck pain. PT-OP-C Subjective Start: 12/15/17 12:58 Freq: Status: Active Protocol: Document 12/25/17 13:45 AMB (Rec: 12/25/17 15:30 AMB [email or web address]) OP-PT Subjective Patient Comments Patient Comments Pt is doing well today, did not have much issue filling out paperwork at the dentist's office per his report. PT-OP-E Functional Tests Start: 12/15/17 12:58 Freq: Status: Active Protocol: Document 12/15/17 13:45 AMB (Rec: 12/15/17 15:40 AMB [email or web address]) Functional Tests 6 Minute Walk Test Distance 1343 Device Used none Comments age gender norm: [age] Five Times Sit to Stand Test Score 9 Comments without UE support PT-OP-G Mobility & Gait Start: 12/15/17 12:58 Freq: Status: Active Protocol: Document 12/15/17 13:45 AMB (Rec: 12/15/17 15:40 AMB [email or web address]) OP Gait Assessment Comments Gait Comments Internally rotates shoulders with lack of shoulder extension with arm swing. Pt had one moment of tripping over his R toe but regained his balance independently. PT-OP-H Neuro Start: 12/15/17 12:58 Freq: Status: Active Protocol: Document 12/15/17 13:45 AMB (Rec: 12/15/17 15:40 AMB [email or web address]) Muscle Tone Tone Assessment Right Upper Extremity Manifestations of Tone Intention Tremors Left Upper Extremity Manifestations of Tone Intention Tremors Right Lower Extremity Flexor Tone Description Rigidity Left Lower Extremity Flexor Tone Description Rigidity PT-OP-J Posture/Palpation/Skin Start: 12/15/17 12:58 Freq: Status: Active Protocol: Document 12/15/17 13:45 AMB (Rec: 12/15/17 15:40 AMB [email or web address]) Posture Evaluation Comments Posture Comments Forward head, rounded shoulders, flat lumbar spine PT-OP-K Range of Motion Start: 12/15/17 12:58 Freq: Status: Active Protocol: Document 12/15/17 13:45 AMB (Rec: 12/15/17 15:40 AMB [email or web address]) Shoulder Goniometric Range of Motion Shoulder Measured in Degrees Right Passive Testing Position Supine Flexion 140 Left Passive Testing Position Supine Flexion 156 PT-OP-M Strength Start: 12/15/17 12:58 Freq: Status: Active Protocol: Document 12/15/17 13:45 AMB (Rec: 12/15/17 15:40 AMB [email or web address]) Hand Programming Instructor/Pinch Strength Hand Dominance Hand Dominance Right Hand Strength Right Programming Instructor (lbs) 80 Left Programming Instructor (lbs) 75 Hip Strength Hip Manual Muscle Testing Right Flexion (L2) 3+ Fair+ Extension (S1) 3 Fair Abduction 3 Fair Left Flexion (L2) 4- Good- Extension (S1) 4- Good- Abduction 4- Good- Knee Strength Knee Manual Muscle Testing Right Flexion (S2) 4 Good Extension (L3) 4 Good Left Flexion (S2) 4 Good Extension (L3) 4 Good Ankle/Foot Strength Ankle and Foot Manual Muscle Testing Right Dorsiflexion (L4) 4 Good Plantarflexion (S1) 4- Good- Left Dorsiflexion (L4) 4 Good Plantarflexion (S1) 4- Good- PT-OP-Q Treatments Start: 12/15/17 12:58 Freq: Status: Active Protocol: Document 12/25/17 13:45 AMB (Rec: 12/25/17 15:30 AMB [email or web address]) Therapeutic Exercises Supine Exercises 2 Supine Exercise Name quad stretch Reps/Minutes 30x2 Sitting Exercises 2 Sitting Exercise Name wrist flex/ext/ sup/pron Equipment Used 3# 1 Sitting Exercise Name chin tuck Comments vc for posture first Therapeutic Activity Therapeutic Activity 1 Name Sit to stand Reps/Minutes 10 Comments without UE support Neuro Re-Education Treatment Balance Activities 5 Details Backward step and reach Reps/Duration 10x2 4 Details Side step and reach Reps/Duration 10x2 3 Details Forward step and reach Reps/Duration 10x2 Comments No UE assist 2 Details [place] and reach- sideways Reps/Duration 12x2 Comments No UE assist 1 Details [place] and reach- forward Reps/Duration 12x2 Comments No UE assist Coordination Activities 2 Details finger to nose Comments EO/EC 1 Details alternating pron/sup Comments EO/EC Other Activities 2 Details Side to side Reps/Duration 8 1 Details Floor to ceiling Reps/Duration 8 PT-OP-T Assessment and Plan Start: 12/15/17 12:58 Freq: Status: Active Protocol: Document 12/25/17 13:45 AMB (Rec: 12/25/17 15:30 AMB [email or web address]) Physical Therapy Assessment Assessment Summary Assessment Pt did quite well with large motion coordination exercises. small motions continue to have tremor. Physical Therapy Plan Next Visit Focus/Plan Next Note Type Treatment Note Next Visit Plan Progress amplitude of exercises for carryover to fine motor exercises.
--- NOTE | 2017-12-26 15:45 | PT.OTN ---
Current Diagnoses Parkinson's disease (12/26/17) Physical Therapy Treatment Note PT-OP-A Visit Information Start: 12/15/17 12:58 Freq: Status: Active Protocol: Document 12/26/17 13:45 AMB (Rec: 12/26/17 15:41 AMB [email or web address]) Out-Patient Physical Therapy Visit Information Visit Information Visit Type Treatment Note Visit Note 08/26 Visit Start Time 13:45 Visit Stop Time 14:45 Total Visit Minutes 60 Visit Number 7 Evaluation Information Evaluation Date 12/15/17 PT-OP-B Current Condition Start: 12/15/17 12:58 Freq: Status: Active Protocol: Document 12/15/17 13:45 AMB (Rec: 12/15/17 15:33 AMB [email or web address]) Current Condition History of Current Condition Onset Date 5 years ago Current Complaints Difficulty shaving, chopping food, walking and eating quickly History of Current Condition The patient was diagnosed with Parkinson's disease about 5 years ago. He lives with his in a 2 story home (spiral staircase) with 1 step to enter without a railing. He is right hand dominant with an intention tremor bilaterally worse on the right. He ambulates without assistive device with no reported falls. Prior Functional Status Baseline Function- ADL's Independent Baseline Function- Mobility Independent Baseline Function- Work/School Retired but drives Baseline Function- Recreation/Hobbies Stopped going to the gym due to fatigue Current Functional Impairments (Reported) Functional Limitations- ADL's Difficulty shaving, brushing his teeth due to the tremor Personal Factors Other Personal Factors That May Effect History of stent placement Therapy/Recovery about 10 years ago, back pain, right shoulder pain, bilateral foot and knee pain, neck pain. PT-OP-C Subjective Start: 12/15/17 12:58 Freq: Status: Active Protocol: Document 12/26/17 13:45 AMB (Rec: 12/26/17 15:41 AMB [email or web address]) OP-PT Subjective Patient Comments Patient Comments Pt reports he did well with the dog walking. PT-OP-E Functional Tests Start: 12/15/17 12:58 Freq: Status: Active Protocol: Document 12/15/17 13:45 AMB (Rec: 12/15/17 15:40 AMB [email or web address]) Functional Tests 6 Minute Walk Test Distance 1343 Device Used none Comments age gender norm: [age] Five Times Sit to Stand Test Score 9 Comments without UE support PT-OP-G Mobility & Gait Start: 12/15/17 12:58 Freq: Status: Active Protocol: Document 12/15/17 13:45 AMB (Rec: 12/15/17 15:40 AMB [email or web address]) OP Gait Assessment Comments Gait Comments Internally rotates shoulders with lack of shoulder extension with arm swing. Pt had one moment of tripping over his R toe but regained his balance independently. PT-OP-H Neuro Start: 12/15/17 12:58 Freq: Status: Active Protocol: Document 12/15/17 13:45 AMB (Rec: 12/15/17 15:40 AMB [email or web address]) Muscle Tone Tone Assessment Right Upper Extremity Manifestations of Tone Intention Tremors Left Upper Extremity Manifestations of Tone Intention Tremors Right Lower Extremity Flexor Tone Description Rigidity Left Lower Extremity Flexor Tone Description Rigidity PT-OP-J Posture/Palpation/Skin Start: 12/15/17 12:58 Freq: Status: Active Protocol: Document 12/15/17 13:45 AMB (Rec: 12/15/17 15:40 AMB [email or web address]) Posture Evaluation Comments Posture Comments Forward head, rounded shoulders, flat lumbar spine PT-OP-K Range of Motion Start: 12/15/17 12:58 Freq: Status: Active Protocol: Document 12/15/17 13:45 AMB (Rec: 12/15/17 15:40 AMB [email or web address]) Shoulder Goniometric Range of Motion Shoulder Measured in Degrees Right Passive Testing Position Supine Flexion 140 Left Passive Testing Position Supine Flexion 156 PT-OP-M Strength Start: 12/15/17 12:58 Freq: Status: Active Protocol: Document 12/15/17 13:45 AMB (Rec: 12/15/17 15:40 AMB [email or web address]) Hand Healthcare Administration Intern/Pinch Strength Hand Dominance Hand Dominance Right Hand Strength Right Healthcare Administration Intern (lbs) 80 Left Healthcare Administration Intern (lbs) 75 Hip Strength Hip Manual Muscle Testing Right Flexion (L2) 3+ Fair+ Extension (S1) 3 Fair Abduction 3 Fair Left Flexion (L2) 4- Good- Extension (S1) 4- Good- Abduction 4- Good- Knee Strength Knee Manual Muscle Testing Right Flexion (S2) 4 Good Extension (L3) 4 Good Left Flexion (S2) 4 Good Extension (L3) 4 Good Ankle/Foot Strength Ankle and Foot Manual Muscle Testing Right Dorsiflexion (L4) 4 Good Plantarflexion (S1) 4- Good- Left Dorsiflexion (L4) 4 Good Plantarflexion (S1) 4- Good- PT-OP-Q Treatments Start: 12/15/17 12:58 Freq: Status: Active Protocol: Document 12/26/17 13:45 AMB (Rec: 12/26/17 15:41 AMB [email or web address]) Therapeutic Exercises Supine Exercises 2 Supine Exercise Name quad stretch Reps/Minutes 30x2 Sitting Exercises 4 Sitting Exercise Name academic registrar/ pinch strengthening Standing Exercises 3 Standing Exercise Name doorway stretch Reps/Minutes 30x2 Comments pecs Therapeutic Activity Therapeutic Activity 1 Name Sit to stand Reps/Minutes 10 Comments without UE support Gait Training Gait Activity 1 Description ambulating over smooth surface Device Used none Comments with dual tasking counting by 3's 4's 5's. Neuro Re-Education Treatment Balance Activities 5 Details Backward step and reach Reps/Duration 10x2 4 Details Side step and reach Reps/Duration 10x2 3 Details Forward step and reach Reps/Duration 10x2 Comments No UE assist 2 Details [place] and reach- sideways Reps/Duration 12x2 Comments No UE assist 1 Details [place] and reach- forward Reps/Duration 12x2 Comments No UE assist Other Activities 2 Details Side to side Reps/Duration 8 1 Details Floor to ceiling Reps/Duration 8 PT-OP-T Assessment and Plan Start: 12/15/17 12:58 Freq: Status: Active Protocol: Document 12/26/17 13:45 AMB (Rec: 12/26/17 15:41 AMB [email or web address]) Physical Therapy Assessment Assessment Summary Assessment Pt with difficulty with 5th finger and thumb opposition. Difficulty with dual tasking with gait. Physical Therapy Plan Next Visit Focus/Plan Next Note Type Treatment Note Next Visit Plan Progress amplitude of exercises for carryover to fine motor exercises.
--- NOTE | 2017-12-29 16:06 | PT.OTN ---
Current Diagnoses Parkinson's disease (12/29/17) Physical Therapy Treatment Note PT-OP-A Visit Information Start: 12/15/17 12:58 Freq: Status: Active Protocol: Document 12/29/17 14:00 AMB (Rec: 12/29/17 14:31 AMB [id number]) Out-Patient Physical Therapy Visit Information Visit Information Visit Type Treatment Note Visit Note 09/26 Visit Start Time 13:45 Visit Stop Time 14:45 Total Visit Minutes 60 Visit Number 8 PT-OP-B Current Condition Start: 12/15/17 12:58 Freq: Status: Active Protocol: Document 12/15/17 13:45 AMB (Rec: 12/15/17 15:33 AMB [email or web address]) Current Condition History of Current Condition Onset Date 5 years ago Current Complaints Difficulty shaving, chopping food, walking and eating quickly History of Current Condition The patient was diagnosed with Parkinson's disease about 5 years ago. He lives with his in a 2 story home (spiral staircase) with 1 step to enter without a railing. He is right hand dominant with an intention tremor bilaterally worse on the right. He ambulates without assistive device with no reported falls. Prior Functional Status Baseline Function- ADL's Independent Baseline Function- Mobility Independent Baseline Function- Work/School Retired but drives Baseline Function- Recreation/Hobbies Stopped going to the gym due to fatigue Current Functional Impairments (Reported) Functional Limitations- ADL's Difficulty shaving, brushing his teeth due to the tremor Personal Factors Other Personal Factors That May Effect History of stent placement Therapy/Recovery about 10 years ago, back pain, right shoulder pain, bilateral foot and knee pain, neck pain. PT-OP-C Subjective Start: 12/15/17 12:58 Freq: Status: Active Protocol: Document 12/29/17 14:00 AMB (Rec: 12/29/17 14:31 AMB [id number]) OP-PT Subjective Patient Comments Patient Comments Leg tightness with dog walking PT-OP-E Functional Tests Start: 12/15/17 12:58 Freq: Status: Active Protocol: Document 12/15/17 13:45 AMB (Rec: 12/15/17 15:40 AMB [email or web address]) Functional Tests 6 Minute Walk Test Distance 1343 Device Used none Comments age gender norm: [age] Five Times Sit to Stand Test Score 9 Comments without UE support PT-OP-G Mobility & Gait Start: 12/15/17 12:58 Freq: Status: Active Protocol: Document 12/15/17 13:45 AMB (Rec: 12/15/17 15:40 AMB [email or web address]) OP Gait Assessment Comments Gait Comments Internally rotates shoulders with lack of shoulder extension with arm swing. Pt had one moment of tripping over his R toe but regained his balance independently. PT-OP-H Neuro Start: 12/15/17 12:58 Freq: Status: Active Protocol: Document 12/15/17 13:45 AMB (Rec: 12/15/17 15:40 AMB [email or web address]) Muscle Tone Tone Assessment Right Upper Extremity Manifestations of Tone Intention Tremors Left Upper Extremity Manifestations of Tone Intention Tremors Right Lower Extremity Flexor Tone Description Rigidity Left Lower Extremity Flexor Tone Description Rigidity PT-OP-J Posture/Palpation/Skin Start: 12/15/17 12:58 Freq: Status: Active Protocol: Document 12/15/17 13:45 AMB (Rec: 12/15/17 15:40 AMB [email or web address]) Posture Evaluation Comments Posture Comments Forward head, rounded shoulders, flat lumbar spine PT-OP-K Range of Motion Start: 12/15/17 12:58 Freq: Status: Active Protocol: Document 12/15/17 13:45 AMB (Rec: 12/15/17 15:40 AMB [email or web address]) Shoulder Goniometric Range of Motion Shoulder Measured in Degrees Right Passive Testing Position Supine Flexion 140 Left Passive Testing Position Supine Flexion 156 PT-OP-M Strength Start: 12/15/17 12:58 Freq: Status: Active Protocol: Document 12/15/17 13:45 AMB (Rec: 12/15/17 15:40 AMB [email or web address]) Hand Hospital Food Service Worker/Pinch Strength Hand Dominance Hand Dominance Right Hand Strength Right Hospital Food Service Worker (lbs) 80 Left Hospital Food Service Worker (lbs) 75 Hip Strength Hip Manual Muscle Testing Right Flexion (L2) 3+ Fair+ Extension (S1) 3 Fair Abduction 3 Fair Left Flexion (L2) 4- Good- Extension (S1) 4- Good- Abduction 4- Good- Knee Strength Knee Manual Muscle Testing Right Flexion (S2) 4 Good Extension (L3) 4 Good Left Flexion (S2) 4 Good Extension (L3) 4 Good Ankle/Foot Strength Ankle and Foot Manual Muscle Testing Right Dorsiflexion (L4) 4 Good Plantarflexion (S1) 4- Good- Left Dorsiflexion (L4) 4 Good Plantarflexion (S1) 4- Good- PT-OP-Q Treatments Start: 12/15/17 12:58 Freq: Status: Active Protocol: Document 12/29/17 13:45 AMB (Rec: 12/29/17 16:05 AMB [email or web address]) Gym Equipment Shuttle Balance 1 Details YELLOW Comments WBOS with UE movement. Stride stance focus on posture Therapeutic Activity Therapeutic Activity 1 Name Sit to stand Reps/Minutes 10 Comments without UE support Gait Training Gait Activity 1 Description ambulating over smooth surface Device Used none Comments with dual tasking counting by 3's 4's 5's. Added ball toss Neuro Re-Education Treatment Balance Activities 5 Details Backward step and reach Reps/Duration 10x2 4 Details Side step and reach Reps/Duration 10x2 3 Details Forward step and reach Reps/Duration 10x2 Comments No UE assist 2 Details [place] and reach- sideways Reps/Duration 12x2 Comments No UE assist 1 Details [place] and reach- forward Reps/Duration 12x2 Comments No UE assist Other Activities 2 Details Side to side Reps/Duration 8 1 Details Floor to ceiling Reps/Duration 8 PT-OP-T Assessment and Plan Start: 12/15/17 12:58 Freq: Status: Active Protocol: Document 12/29/17 13:45 AMB (Rec: 12/29/17 16:05 AMB [email or web address]) Physical Therapy Assessment Assessment Summary Assessment Pt with better dual tasking today, better opposition with fine motor Physical Therapy Plan Next Visit Focus/Plan Next Note Type Treatment Note Next Visit Plan Progress amplitude of exercises for carryover to fine motor exercises.
--- NOTE | 2017-12-31 14:52 | PT.OTN ---
Current Diagnoses Parkinson's disease (12/31/17) Physical Therapy Treatment Note PT-OP-A Visit Information Start: 12/15/17 12:58 Freq: Status: Active Protocol: Document 12/31/17 13:45 AMB (Rec: 12/31/17 14:18 AMB [id number]) Out-Patient Physical Therapy Visit Information Visit Information Visit Type Treatment Note Visit Note 10/27 Visit Start Time 13:45 Visit Stop Time 14:45 Total Visit Minutes 60 Visit Number 9 PT-OP-B Current Condition Start: 12/15/17 12:58 Freq: Status: Active Protocol: Document 12/15/17 13:45 AMB (Rec: 12/15/17 15:33 AMB [email or web address]) Current Condition History of Current Condition Onset Date 5 years ago Current Complaints Difficulty shaving, chopping food, walking and eating quickly History of Current Condition The patient was diagnosed with Parkinson's disease about 5 years ago. He lives with his in a 2 story home (spiral staircase) with 1 step to enter without a railing. He is right hand dominant with an intention tremor bilaterally worse on the right. He ambulates without assistive device with no reported falls. Prior Functional Status Baseline Function- ADL's Independent Baseline Function- Mobility Independent Baseline Function- Work/School Retired but drives Baseline Function- Recreation/Hobbies Stopped going to the gym due to fatigue Current Functional Impairments (Reported) Functional Limitations- ADL's Difficulty shaving, brushing his teeth due to the tremor Personal Factors Other Personal Factors That May Effect History of stent placement Therapy/Recovery about 10 years ago, back pain, right shoulder pain, bilateral foot and knee pain, neck pain. PT-OP-C Subjective Start: 12/15/17 12:58 Freq: Status: Active Protocol: Document 12/31/17 13:45 AMB (Rec: 12/31/17 14:18 AMB [id number]) OP-PT Subjective Patient Comments Patient Comments Pt admits sometimes it is easier to not push ROM. PT-OP-E Functional Tests Start: 12/15/17 12:58 Freq: Status: Active Protocol: Document 12/31/17 13:45 AMB (Rec: 12/31/17 14:26 AMB [email or web address]) Functional Tests 6 Minute Walk Test Distance 1323 PT-OP-G Mobility & Gait Start: 12/15/17 12:58 Freq: Status: Active Protocol: Document 12/15/17 13:45 AMB (Rec: 12/15/17 15:40 AMB [email or web address]) OP Gait Assessment Comments Gait Comments Internally rotates shoulders with lack of shoulder extension with arm swing. Pt had one moment of tripping over his R toe but regained his balance independently. PT-OP-H Neuro Start: 12/15/17 12:58 Freq: Status: Active Protocol: Document 12/15/17 13:45 AMB (Rec: 12/15/17 15:40 AMB [email or web address]) Muscle Tone Tone Assessment Right Upper Extremity Manifestations of Tone Intention Tremors Left Upper Extremity Manifestations of Tone Intention Tremors Right Lower Extremity Flexor Tone Description Rigidity Left Lower Extremity Flexor Tone Description Rigidity PT-OP-J Posture/Palpation/Skin Start: 12/15/17 12:58 Freq: Status: Active Protocol: Document 12/15/17 13:45 AMB (Rec: 12/15/17 15:40 AMB [email or web address]) Posture Evaluation Comments Posture Comments Forward head, rounded shoulders, flat lumbar spine PT-OP-K Range of Motion Start: 12/15/17 12:58 Freq: Status: Active Protocol: Document 12/15/17 13:45 AMB (Rec: 12/15/17 15:40 AMB [email or web address]) Shoulder Goniometric Range of Motion Shoulder Measured in Degrees Right Passive Testing Position Supine Flexion 140 Left Passive Testing Position Supine Flexion 156 PT-OP-M Strength Start: 12/15/17 12:58 Freq: Status: Active Protocol: Document 12/15/17 13:45 AMB (Rec: 12/15/17 15:40 AMB [email or web address]) Hand Research Dairy Farm Supervisor/Pinch Strength Hand Dominance Hand Dominance Right Hand Strength Right Research Dairy Farm Supervisor (lbs) 80 Left Research Dairy Farm Supervisor (lbs) 75 Hip Strength Hip Manual Muscle Testing Right Flexion (L2) 3+ Fair+ Extension (S1) 3 Fair Abduction 3 Fair Left Flexion (L2) 4- Good- Extension (S1) 4- Good- Abduction 4- Good- Knee Strength Knee Manual Muscle Testing Right Flexion (S2) 4 Good Extension (L3) 4 Good Left Flexion (S2) 4 Good Extension (L3) 4 Good Ankle/Foot Strength Ankle and Foot Manual Muscle Testing Right Dorsiflexion (L4) 4 Good Plantarflexion (S1) 4- Good- Left Dorsiflexion (L4) 4 Good Plantarflexion (S1) 4- Good- PT-OP-Q Treatments Start: 12/15/17 12:58 Freq: Status: Active Protocol: Document 12/31/17 13:45 AMB (Rec: 12/31/17 14:52 AMB [email or web address]) Gait Training Gait Activity 1 Description ambulating over smooth surface Device Used none Comments with dual tasking counting by 3's 4's 5's. Added ball toss Neuro Re-Education Treatment Balance Activities 5 Details Backward step and reach Reps/Duration 10x2 4 Details Side step and reach Reps/Duration 10x2 3 Details Forward step and reach Reps/Duration 10x2 Comments No UE assist 2 Details [place] and reach- sideways Reps/Duration 12x2 Comments No UE assist 1 Details [place] and reach- forward Reps/Duration 12x2 Comments No UE assist Other Activities 2 Details Side to side Reps/Duration 8 1 Details Floor to ceiling Reps/Duration 8 PT-OP-T Assessment and Plan Start: 12/15/17 12:58 Freq: Status: Active Protocol: Document 12/31/17 13:45 AMB (Rec: 12/31/17 14:18 AMB [id number]) Physical Therapy Assessment Assessment Summary Assessment Pt needs to push ROM to make changes. Will encourage him to continue to maximize his ROM. Physical Therapy Plan Next Visit Focus/Plan Next Note Type Treatment Note Next Visit Plan Progress amplitude of exercises for carryover to fine motor exercises.
--- NOTE | 2018-01-01 16:03 | PT.OTN ---
Current Diagnoses Parkinson's disease (01/01/18) Physical Therapy Treatment Note PT-OP-A Visit Information Start: 12/15/17 12:58 Freq: Status: Active Protocol: Document 01/01/18 13:45 AMB (Rec: 01/01/18 16:03 AMB [email or web address]) Out-Patient Physical Therapy Visit Information Visit Information Visit Type Progress Note Visit Note 02/26 Visit Start Time 13:45 Visit Stop Time 14:45 Total Visit Minutes 60 Visit Number 10 PT-OP-B Current Condition Start: 12/15/17 12:58 Freq: Status: Active Protocol: Document 12/15/17 13:45 AMB (Rec: 12/15/17 15:33 AMB [email or web address]) Current Condition History of Current Condition Onset Date 5 years ago Current Complaints Difficulty shaving, chopping food, walking and eating quickly History of Current Condition The patient was diagnosed with Parkinson's disease about 5 years ago. He lives with his in a 2 story home (spiral staircase) with 1 step to enter without a railing. He is right hand dominant with an intention tremor bilaterally worse on the right. He ambulates without assistive device with no reported falls. Prior Functional Status Baseline Function- ADL's Independent Baseline Function- Mobility Independent Baseline Function- Work/School Retired but drives Baseline Function- Recreation/Hobbies Stopped going to the gym due to fatigue Current Functional Impairments (Reported) Functional Limitations- ADL's Difficulty shaving, brushing his teeth due to the tremor Personal Factors Other Personal Factors That May Effect History of stent placement Therapy/Recovery about 10 years ago, back pain, right shoulder pain, bilateral foot and knee pain, neck pain. PT-OP-C Subjective Start: 12/15/17 12:58 Freq: Status: Active Protocol: Document 01/01/18 13:45 AMB (Rec: 01/01/18 16:03 AMB [email or web address]) OP-PT Subjective Patient Comments Patient Comments Pt saw Dr. Soares today, she is going to change his meds, but he does not remember what to. PT-OP-E Functional Tests Start: 12/15/17 12:58 Freq: Status: Active Protocol: Document 12/31/17 13:45 AMB (Rec: 12/31/17 14:26 AMB [id number]) Functional Tests 6 Minute Walk Test Distance 1323 PT-OP-G Mobility & Gait Start: 12/15/17 12:58 Freq: Status: Active Protocol: Document 12/15/17 13:45 AMB (Rec: 12/15/17 15:40 AMB [email or web address]) OP Gait Assessment Comments Gait Comments Internally rotates shoulders with lack of shoulder extension with arm swing. Pt had one moment of tripping over his R toe but regained his balance independently. PT-OP-H Neuro Start: 12/15/17 12:58 Freq: Status: Active Protocol: Document 12/15/17 13:45 AMB (Rec: 12/15/17 15:40 AMB [email or web address]) Muscle Tone Tone Assessment Right Upper Extremity Manifestations of Tone Intention Tremors Left Upper Extremity Manifestations of Tone Intention Tremors Right Lower Extremity Flexor Tone Description Rigidity Left Lower Extremity Flexor Tone Description Rigidity PT-OP-J Posture/Palpation/Skin Start: 12/15/17 12:58 Freq: Status: Active Protocol: Document 12/15/17 13:45 AMB (Rec: 12/15/17 15:40 AMB [email or web address]) Posture Evaluation Comments Posture Comments Forward head, rounded shoulders, flat lumbar spine PT-OP-K Range of Motion Start: 12/15/17 12:58 Freq: Status: Active Protocol: Document 12/15/17 13:45 AMB (Rec: 12/15/17 15:40 AMB [email or web address]) Shoulder Goniometric Range of Motion Shoulder Measured in Degrees Right Passive Testing Position Supine Flexion 140 Left Passive Testing Position Supine Flexion 156 PT-OP-M Strength Start: 12/15/17 12:58 Freq: Status: Active Protocol: Document 12/15/17 13:45 AMB (Rec: 12/15/17 15:40 AMB [email or web address]) Hand Framing Manager/Pinch Strength Hand Dominance Hand Dominance Right Hand Strength Right Framing Manager (lbs) 80 Left Framing Manager (lbs) 75 Hip Strength Hip Manual Muscle Testing Right Flexion (L2) 3+ Fair+ Extension (S1) 3 Fair Abduction 3 Fair Left Flexion (L2) 4- Good- Extension (S1) 4- Good- Abduction 4- Good- Knee Strength Knee Manual Muscle Testing Right Flexion (S2) 4 Good Extension (L3) 4 Good Left Flexion (S2) 4 Good Extension (L3) 4 Good Ankle/Foot Strength Ankle and Foot Manual Muscle Testing Right Dorsiflexion (L4) 4 Good Plantarflexion (S1) 4- Good- Left Dorsiflexion (L4) 4 Good Plantarflexion (S1) 4- Good- PT-OP-Q Treatments Start: 12/15/17 12:58 Freq: Status: Active Protocol: Document 01/01/18 13:45 AMB (Rec: 01/01/18 16:03 AMB [email or web address]) Therapeutic Exercises Supine Exercises 2 Supine Exercise Name quad stretch Reps/Minutes 30x2 Standing Exercises 4 Standing Exercise Name calf stretch Reps/Minutes 30x2 Comments XIOMARA 2 Standing Exercise Name hamstring stretch Reps/Minutes 30x2 Comments stair Gait Training Gait Activity 1 Description ambulating over smooth surface Device Used none Comments with dual tasking counting by 3's 4's 5's. Added ball toss Neuro Re-Education Treatment Balance Activities 5 Details Backward step and reach Reps/Duration 10x2 4 Details Side step and reach Reps/Duration 10x2 3 Details Forward step and reach Reps/Duration 10x2 Comments No UE assist 2 Details [place] and reach- sideways Reps/Duration 12x2 Comments No UE assist 1 Details [place] and reach- forward Reps/Duration 12x2 Comments No UE assist Other Activities 2 Details Side to side Reps/Duration 8 1 Details Floor to ceiling Reps/Duration 8 PT-OP-T Assessment and Plan Start: 12/15/17 12:58 Freq: Status: Active Protocol: Document 01/01/18 13:45 AMB (Rec: 01/01/18 16:03 AMB [email or web address]) Physical Therapy Assessment Assessment Summary Assessment Better shoulder ROM today with exercises. Physical Therapy Plan Next Visit Focus/Plan Next Note Type Treatment Note Next Visit Plan Progress amplitude of exercises for carryover to fine motor exercises.
--- NOTE | 2018-01-02 15:07 | PT.OTN ---
Current Diagnoses Parkinson's disease (01/02/18) Physical Therapy Treatment Note PT-OP-A Visit Information Start: 12/15/17 12:58 Freq: Status: Active Protocol: Document 01/02/18 13:45 AMB (Rec: 01/02/18 15:07 AMB [email or web address]) Out-Patient Physical Therapy Visit Information Visit Information Visit Type Treatment Note Visit Note 03/29 Visit Start Time 13:45 Visit Stop Time 14:45 Total Visit Minutes 60 Visit Number 11 PT-OP-B Current Condition Start: 12/15/17 12:58 Freq: Status: Active Protocol: Document 12/15/17 13:45 AMB (Rec: 12/15/17 15:33 AMB [email or web address]) Current Condition History of Current Condition Onset Date 5 years ago Current Complaints Difficulty shaving, chopping food, walking and eating quickly History of Current Condition The patient was diagnosed with Parkinson's disease about 5 years ago. He lives with his in a 2 story home (spiral staircase) with 1 step to enter without a railing. He is right hand dominant with an intention tremor bilaterally worse on the right. He ambulates without assistive device with no reported falls. Prior Functional Status Baseline Function- ADL's Independent Baseline Function- Mobility Independent Baseline Function- Work/School Retired but drives Baseline Function- Recreation/Hobbies Stopped going to the gym due to fatigue Current Functional Impairments (Reported) Functional Limitations- ADL's Difficulty shaving, brushing his teeth due to the tremor Personal Factors Other Personal Factors That May Effect History of stent placement Therapy/Recovery about 10 years ago, back pain, right shoulder pain, bilateral foot and knee pain, neck pain. PT-OP-C Subjective Start: 12/15/17 12:58 Freq: Status: Active Protocol: Document 01/02/18 13:45 AMB (Rec: 01/02/18 15:07 AMB [email or web address]) OP-PT Subjective Patient Comments Patient Comments Pt is taking one more carbidopa/levodopa per day. PT-OP-E Functional Tests Start: 12/15/17 12:58 Freq: Status: Active Protocol: Document 12/31/17 13:45 AMB (Rec: 12/31/17 14:26 AMB [id number]) Functional Tests 6 Minute Walk Test Distance 1323 PT-OP-G Mobility & Gait Start: 12/15/17 12:58 Freq: Status: Active Protocol: Document 12/15/17 13:45 AMB (Rec: 12/15/17 15:40 AMB [email or web address]) OP Gait Assessment Comments Gait Comments Internally rotates shoulders with lack of shoulder extension with arm swing. Pt had one moment of tripping over his R toe but regained his balance independently. PT-OP-H Neuro Start: 12/15/17 12:58 Freq: Status: Active Protocol: Document 12/15/17 13:45 AMB (Rec: 12/15/17 15:40 AMB [email or web address]) Muscle Tone Tone Assessment Right Upper Extremity Manifestations of Tone Intention Tremors Left Upper Extremity Manifestations of Tone Intention Tremors Right Lower Extremity Flexor Tone Description Rigidity Left Lower Extremity Flexor Tone Description Rigidity PT-OP-J Posture/Palpation/Skin Start: 12/15/17 12:58 Freq: Status: Active Protocol: Document 12/15/17 13:45 AMB (Rec: 12/15/17 15:40 AMB [email or web address]) Posture Evaluation Comments Posture Comments Forward head, rounded shoulders, flat lumbar spine PT-OP-K Range of Motion Start: 12/15/17 12:58 Freq: Status: Active Protocol: Document 12/15/17 13:45 AMB (Rec: 12/15/17 15:40 AMB [email or web address]) Shoulder Goniometric Range of Motion Shoulder Measured in Degrees Right Passive Testing Position Supine Flexion 140 Left Passive Testing Position Supine Flexion 156 PT-OP-M Strength Start: 12/15/17 12:58 Freq: Status: Active Protocol: Document 12/15/17 13:45 AMB (Rec: 12/15/17 15:40 AMB [email or web address]) Hand Superintendent Seed Mill/Pinch Strength Hand Dominance Hand Dominance Right Hand Strength Right Superintendent [employer] (lbs) 80 Left Superintendent [employer] (lbs) 75 Hip Strength Hip Manual Muscle Testing Right Flexion (L2) 3+ Fair+ Extension (S1) 3 Fair Abduction 3 Fair Left Flexion (L2) 4- Good- Extension (S1) 4- Good- Abduction 4- Good- Knee Strength Knee Manual Muscle Testing Right Flexion (S2) 4 Good Extension (L3) 4 Good Left Flexion (S2) 4 Good Extension (L3) 4 Good Ankle/Foot Strength Ankle and Foot Manual Muscle Testing Right Dorsiflexion (L4) 4 Good Plantarflexion (S1) 4- Good- Left Dorsiflexion (L4) 4 Good Plantarflexion (S1) 4- Good- PT-OP-Q Treatments Start: 12/15/17 12:58 Freq: Status: Active Protocol: Document 01/02/18 13:45 AMB (Rec: 01/02/18 15:07 AMB [email or web address]) Gym Equipment Shuttle Balance 1 Details YELLOW Comments WBOS with UE movement. Stride stance focus on posture Gait Training Gait Activity 1 Description ambulating over smooth surface Device Used none Comments with dual tasking counting by 3's 4's 5's. with ball toss Neuro Re-Education Treatment Balance Activities 5 Details Backward step and reach Reps/Duration 10x2 4 Details Side step and reach Reps/Duration 10x2 3 Details Forward step and reach Reps/Duration 10x2 Comments No UE assist 2 Details [place] and reach- sideways Reps/Duration 12x2 Comments No UE assist 1 Details [place] and reach- forward Reps/Duration 12x2 Comments No UE assist Other Activities 2 Details Side to side Reps/Duration 8 1 Details Floor to ceiling Reps/Duration 8 PT-OP-T Assessment and Plan Start: 12/15/17 12:58 Freq: Status: Active Protocol: Document 01/02/18 13:45 AMB (Rec: 01/02/18 15:07 AMB [email or web address]) Physical Therapy Assessment Assessment Summary Assessment Pt is doing well continues to be frustrated by tremor with shaving. Physical Therapy Plan Next Visit Focus/Plan Next Note Type Treatment Note Next Visit Plan Progress amplitude of exercises for carryover to fine motor exercises.
--- NOTE | 2018-01-05 14:56 | PT.OTN ---
Current Diagnoses Parkinson's disease (01/05/18) Physical Therapy Treatment Note PT-OP-A Visit Information Start: 12/15/17 12:58 Freq: Status: Active Protocol: Document 01/05/18 13:45 AMB (Rec: 01/05/18 14:56 AMB [email or web address]) Out-Patient Physical Therapy Visit Information Visit Information Visit Type Treatment Note Visit Note 04/26 Visit Start Time 13:45 Visit Stop Time 14:45 Total Visit Minutes 60 Visit Number 12 PT-OP-B Current Condition Start: 12/15/17 12:58 Freq: Status: Active Protocol: Document 12/15/17 13:45 AMB (Rec: 12/15/17 15:33 AMB [email or web address]) Current Condition History of Current Condition Onset Date 5 years ago Current Complaints Difficulty shaving, chopping food, walking and eating quickly History of Current Condition The patient was diagnosed with Parkinson's disease about 5 years ago. He lives with his in a 2 story home (spiral staircase) with 1 step to enter without a railing. He is right hand dominant with an intention tremor bilaterally worse on the right. He ambulates without assistive device with no reported falls. Prior Functional Status Baseline Function- ADL's Independent Baseline Function- Mobility Independent Baseline Function- Work/School Retired but drives Baseline Function- Recreation/Hobbies Stopped going to the gym due to fatigue Current Functional Impairments (Reported) Functional Limitations- ADL's Difficulty shaving, brushing his teeth due to the tremor Personal Factors Other Personal Factors That May Effect History of stent placement Therapy/Recovery about 10 years ago, back pain, right shoulder pain, bilateral foot and knee pain, neck pain. PT-OP-C Subjective Start: 12/15/17 12:58 Freq: Status: Active Protocol: Document 01/05/18 13:45 AMB (Rec: 01/05/18 14:56 AMB [email or web address]) OP-PT Subjective Patient Comments Patient Comments Pt did not sleep well last night. So he is not feeling especially energized today. PT-OP-E Functional Tests Start: 12/15/17 12:58 Freq: Status: Active Protocol: Document 12/31/17 13:45 AMB (Rec: 12/31/17 14:26 AMB [id number]) Functional Tests 6 Minute Walk Test Distance 1323 PT-OP-G Mobility & Gait Start: 12/15/17 12:58 Freq: Status: Active Protocol: Document 12/15/17 13:45 AMB (Rec: 12/15/17 15:40 AMB [email or web address]) OP Gait Assessment Comments Gait Comments Internally rotates shoulders with lack of shoulder extension with arm swing. Pt had one moment of tripping over his R toe but regained his balance independently. PT-OP-H Neuro Start: 12/15/17 12:58 Freq: Status: Active Protocol: Document 12/15/17 13:45 AMB (Rec: 12/15/17 15:40 AMB [email or web address]) Muscle Tone Tone Assessment Right Upper Extremity Manifestations of Tone Intention Tremors Left Upper Extremity Manifestations of Tone Intention Tremors Right Lower Extremity Flexor Tone Description Rigidity Left Lower Extremity Flexor Tone Description Rigidity PT-OP-J Posture/Palpation/Skin Start: 12/15/17 12:58 Freq: Status: Active Protocol: Document 12/15/17 13:45 AMB (Rec: 12/15/17 15:40 AMB [email or web address]) Posture Evaluation Comments Posture Comments Forward head, rounded shoulders, flat lumbar spine PT-OP-K Range of Motion Start: 12/15/17 12:58 Freq: Status: Active Protocol: Document 12/15/17 13:45 AMB (Rec: 12/15/17 15:40 AMB [email or web address]) Shoulder Goniometric Range of Motion Shoulder Measured in Degrees Right Passive Testing Position Supine Flexion 140 Left Passive Testing Position Supine Flexion 156 PT-OP-M Strength Start: 12/15/17 12:58 Freq: Status: Active Protocol: Document 12/15/17 13:45 AMB (Rec: 12/15/17 15:40 AMB [email or web address]) Hand Director Medical Surgical/Pinch Strength Hand Dominance Hand Dominance Right Hand Strength Right Director Medical Surgical (lbs) 80 Left Director Medical Surgical (lbs) 75 Hip Strength Hip Manual Muscle Testing Right Flexion (L2) 3+ Fair+ Extension (S1) 3 Fair Abduction 3 Fair Left Flexion (L2) 4- Good- Extension (S1) 4- Good- Abduction 4- Good- Knee Strength Knee Manual Muscle Testing Right Flexion (S2) 4 Good Extension (L3) 4 Good Left Flexion (S2) 4 Good Extension (L3) 4 Good Ankle/Foot Strength Ankle and Foot Manual Muscle Testing Right Dorsiflexion (L4) 4 Good Plantarflexion (S1) 4- Good- Left Dorsiflexion (L4) 4 Good Plantarflexion (S1) 4- Good- PT-OP-Q Treatments Start: 12/15/17 12:58 Freq: Status: Active Protocol: Document 01/05/18 13:45 AMB (Rec: 01/05/18 14:56 AMB [email or web address]) Therapeutic Exercises Supine Exercises 2 Supine Exercise Name quad stretch Reps/Minutes 30x2 Standing Exercises 4 Standing Exercise Name calf stretch Reps/Minutes 30x2 Comments XIOMARA 2 Standing Exercise Name hamstring stretch Reps/Minutes 30x2 Comments stair Gait Training Gait Activity 1 Description ambulating over smooth surface Device Used none Comments head turns Neuro Re-Education Treatment Balance Activities 5 Details Backward step and reach Reps/Duration 10x2 4 Details Side step and reach Reps/Duration 10x2 3 Details Forward step and reach Reps/Duration 10x2 Comments No UE assist 2 Details [place] and reach- sideways Reps/Duration 12x2 Comments No UE assist 1 Details [place] and reach- forward Reps/Duration 12x2 Comments No UE assist Other Activities 2 Details Side to side Reps/Duration 8 1 Details Floor to ceiling Reps/Duration 8 PT-OP-T Assessment and Plan Start: 12/15/17 12:58 Freq: Status: Active Protocol: Document 01/05/18 13:45 AMB (Rec: 01/05/18 14:56 AMB [email or web address]) Physical Therapy Assessment Assessment Summary Assessment Pt with more tremor today, balance worse with head turns Physical Therapy Plan Next Visit Focus/Plan Next Note Type Treatment Note Next Visit Plan Progress amplitude of exercises for carryover to fine motor exercises.
--- NOTE | 2018-01-06 16:22 | PT.OTN ---
Current Diagnoses Parkinson's disease (01/06/18) Physical Therapy Treatment Note PT-OP-A Visit Information Start: 12/15/17 12:58 Freq: Status: Active Protocol: Document 01/06/18 11:00 AMB (Rec: 01/06/18 16:22 AMB [email or web address]) Out-Patient Physical Therapy Visit Information Visit Information Visit Type Treatment Note Visit Note 05/27 Visit Start Time 13:45 Visit Stop Time 14:45 Total Visit Minutes 60 Visit Number 13 PT-OP-B Current Condition Start: 12/15/17 12:58 Freq: Status: Active Protocol: Document 12/15/17 13:45 AMB (Rec: 12/15/17 15:33 AMB [email or web address]) Current Condition History of Current Condition Onset Date 5 years ago Current Complaints Difficulty shaving, chopping food, walking and eating quickly History of Current Condition The patient was diagnosed with Parkinson's disease about 5 years ago. He lives with his in a 2 story home (spiral staircase) with 1 step to enter without a railing. He is right hand dominant with an intention tremor bilaterally worse on the right. He ambulates without assistive device with no reported falls. Prior Functional Status Baseline Function- ADL's Independent Baseline Function- Mobility Independent Baseline Function- Work/School Retired but drives Baseline Function- Recreation/Hobbies Stopped going to the gym due to fatigue Current Functional Impairments (Reported) Functional Limitations- ADL's Difficulty shaving, brushing his teeth due to the tremor Personal Factors Other Personal Factors That May Effect History of stent placement Therapy/Recovery about 10 years ago, back pain, right shoulder pain, bilateral foot and knee pain, neck pain. PT-OP-C Subjective Start: 12/15/17 12:58 Freq: Status: Active Protocol: Document 01/06/18 11:00 AMB (Rec: 01/06/18 16:22 AMB [email or web address]) OP-PT Subjective Patient Comments Patient Comments Pt is feeling better today, slept better last night PT-OP-E Functional Tests Start: 12/15/17 12:58 Freq: Status: Active Protocol: Document 12/31/17 13:45 AMB (Rec: 12/31/17 14:26 AMB [id number]) Functional Tests 6 Minute Walk Test Distance 1323 PT-OP-G Mobility & Gait Start: 12/15/17 12:58 Freq: Status: Active Protocol: Document 12/15/17 13:45 AMB (Rec: 12/15/17 15:40 AMB [email or web address]) OP Gait Assessment Comments Gait Comments Internally rotates shoulders with lack of shoulder extension with arm swing. Pt had one moment of tripping over his R toe but regained his balance independently. PT-OP-H Neuro Start: 12/15/17 12:58 Freq: Status: Active Protocol: Document 12/15/17 13:45 AMB (Rec: 12/15/17 15:40 AMB [email or web address]) Muscle Tone Tone Assessment Right Upper Extremity Manifestations of Tone Intention Tremors Left Upper Extremity Manifestations of Tone Intention Tremors Right Lower Extremity Flexor Tone Description Rigidity Left Lower Extremity Flexor Tone Description Rigidity PT-OP-J Posture/Palpation/Skin Start: 12/15/17 12:58 Freq: Status: Active Protocol: Document 12/15/17 13:45 AMB (Rec: 12/15/17 15:40 AMB [email or web address]) Posture Evaluation Comments Posture Comments Forward head, rounded shoulders, flat lumbar spine PT-OP-K Range of Motion Start: 12/15/17 12:58 Freq: Status: Active Protocol: Document 12/15/17 13:45 AMB (Rec: 12/15/17 15:40 AMB [email or web address]) Shoulder Goniometric Range of Motion Shoulder Measured in Degrees Right Passive Testing Position Supine Flexion 140 Left Passive Testing Position Supine Flexion 156 PT-OP-M Strength Start: 12/15/17 12:58 Freq: Status: Active Protocol: Document 12/15/17 13:45 AMB (Rec: 12/15/17 15:40 AMB [email or web address]) Hand Ordnance Handler/Pinch Strength Hand Dominance Hand Dominance Right Hand Strength Right Ordnance Handler (lbs) 80 Left Ordnance Handler (lbs) 75 Hip Strength Hip Manual Muscle Testing Right Flexion (L2) 3+ Fair+ Extension (S1) 3 Fair Abduction 3 Fair Left Flexion (L2) 4- Good- Extension (S1) 4- Good- Abduction 4- Good- Knee Strength Knee Manual Muscle Testing Right Flexion (S2) 4 Good Extension (L3) 4 Good Left Flexion (S2) 4 Good Extension (L3) 4 Good Ankle/Foot Strength Ankle and Foot Manual Muscle Testing Right Dorsiflexion (L4) 4 Good Plantarflexion (S1) 4- Good- Left Dorsiflexion (L4) 4 Good Plantarflexion (S1) 4- Good- PT-OP-Q Treatments Start: 12/15/17 12:58 Freq: Status: Active Protocol: Document 01/06/18 11:00 AMB (Rec: 01/06/18 16:22 AMB [email or web address]) Therapeutic Exercises Supine Exercises 2 Supine Exercise Name quad stretch Reps/Minutes 30x2 1 Supine Exercise Name lower trunk rotation Standing Exercises 4 Standing Exercise Name calf stretch Reps/Minutes 30x2 Comments XIOMARA 2 Standing Exercise Name hamstring stretch Reps/Minutes 30x2 Comments stair 1 Standing Exercise Name forward lunges Reps/Minutes 2x10 Therapeutic Activity Therapeutic Activity 1 Name handwriting Comments with lined paper working on big writing, stretching hand, forearm support Gait Training Gait Activity 1 Description ambulating over smooth surface Device Used none Comments head turns, dual tasking with counting backwards by 3, then 4 Neuro Re-Education Treatment Balance Activities 5 Details Backward step and reach Reps/Duration 10x2 4 Details Side step and reach Reps/Duration 10x2 3 Details Forward step and reach Reps/Duration 10x2 Comments No UE assist 2 Details [place] and reach- sideways Reps/Duration 12x2 Comments No UE assist 1 Details [place] and reach- forward Reps/Duration 12x2 Comments No UE assist Other Activities 2 Details Side to side Reps/Duration 8 1 Details Floor to ceiling Reps/Duration 8 PT-OP-T Assessment and Plan Start: 12/15/17 12:58 Freq: Status: Active Protocol: Document 01/06/18 11:00 AMB (Rec: 01/06/18 16:22 AMB [email or web address]) Physical Therapy Assessment Assessment Summary Assessment Better balance today, tremor continues to limit handwriting mildly. Physical Therapy Plan Next Visit Focus/Plan Next Note Type Treatment Note Next Visit Plan Progress amplitude of exercises for carryover to fine motor exercises.
--- NOTE | 2018-01-07 15:06 | PT.OTN ---
Current Diagnoses Parkinson's disease (01/07/18) Physical Therapy Treatment Note PT-OP-A Visit Information Start: 12/15/17 12:58 Freq: Status: Active Protocol: Document 01/07/18 13:45 AMB (Rec: 01/07/18 15:06 AMB [email or web address]) Out-Patient Physical Therapy Visit Information Visit Information Visit Type Treatment Note Visit Note 06/26 Visit Start Time 13:45 Visit Stop Time 14:45 Total Visit Minutes 60 Visit Number 14 PT-OP-B Current Condition Start: 12/15/17 12:58 Freq: Status: Active Protocol: Document 12/15/17 13:45 AMB (Rec: 12/15/17 15:33 AMB [email or web address]) Current Condition History of Current Condition Onset Date 5 years ago Current Complaints Difficulty shaving, chopping food, walking and eating quickly History of Current Condition The patient was diagnosed with Parkinson's disease about 5 years ago. He lives with his in a 2 story home (spiral staircase) with 1 step to enter without a railing. He is right hand dominant with an intention tremor bilaterally worse on the right. He ambulates without assistive device with no reported falls. Prior Functional Status Baseline Function- ADL's Independent Baseline Function- Mobility Independent Baseline Function- Work/School Retired but drives Baseline Function- Recreation/Hobbies Stopped going to the gym due to fatigue Current Functional Impairments (Reported) Functional Limitations- ADL's Difficulty shaving, brushing his teeth due to the tremor Personal Factors Other Personal Factors That May Effect History of stent placement Therapy/Recovery about 10 years ago, back pain, right shoulder pain, bilateral foot and knee pain, neck pain. PT-OP-C Subjective Start: 12/15/17 12:58 Freq: Status: Active Protocol: Document 01/07/18 13:45 AMB (Rec: 01/07/18 15:06 AMB [email or web address]) OP-PT Subjective Patient Comments Patient Comments Pt doing well today, did his exercises this morning PT-OP-E Functional Tests Start: 12/15/17 12:58 Freq: Status: Active Protocol: Document 12/31/17 13:45 AMB (Rec: 12/31/17 14:26 AMB [id number]) Functional Tests 6 Minute Walk Test Distance 1323 PT-OP-G Mobility & Gait Start: 12/15/17 12:58 Freq: Status: Active Protocol: Document 12/15/17 13:45 AMB (Rec: 12/15/17 15:40 AMB [email or web address]) OP Gait Assessment Comments Gait Comments Internally rotates shoulders with lack of shoulder extension with arm swing. Pt had one moment of tripping over his R toe but regained his balance independently. PT-OP-H Neuro Start: 12/15/17 12:58 Freq: Status: Active Protocol: Document 12/15/17 13:45 AMB (Rec: 12/15/17 15:40 AMB [email or web address]) Muscle Tone Tone Assessment Right Upper Extremity Manifestations of Tone Intention Tremors Left Upper Extremity Manifestations of Tone Intention Tremors Right Lower Extremity Flexor Tone Description Rigidity Left Lower Extremity Flexor Tone Description Rigidity PT-OP-J Posture/Palpation/Skin Start: 12/15/17 12:58 Freq: Status: Active Protocol: Document 12/15/17 13:45 AMB (Rec: 12/15/17 15:40 AMB [email or web address]) Posture Evaluation Comments Posture Comments Forward head, rounded shoulders, flat lumbar spine PT-OP-K Range of Motion Start: 12/15/17 12:58 Freq: Status: Active Protocol: Document 12/15/17 13:45 AMB (Rec: 12/15/17 15:40 AMB [email or web address]) Shoulder Goniometric Range of Motion Shoulder Measured in Degrees Right Passive Testing Position Supine Flexion 140 Left Passive Testing Position Supine Flexion 156 PT-OP-M Strength Start: 12/15/17 12:58 Freq: Status: Active Protocol: Document 12/15/17 13:45 AMB (Rec: 12/15/17 15:40 AMB [email or web address]) Hand Acute Care Physical Therapist/Pinch Strength Hand Dominance Hand Dominance Right Hand Strength Right Acute Care Physical Therapist (lbs) 80 Left Acute Care Physical Therapist (lbs) 75 Hip Strength Hip Manual Muscle Testing Right Flexion (L2) 3+ Fair+ Extension (S1) 3 Fair Abduction 3 Fair Left Flexion (L2) 4- Good- Extension (S1) 4- Good- Abduction 4- Good- Knee Strength Knee Manual Muscle Testing Right Flexion (S2) 4 Good Extension (L3) 4 Good Left Flexion (S2) 4 Good Extension (L3) 4 Good Ankle/Foot Strength Ankle and Foot Manual Muscle Testing Right Dorsiflexion (L4) 4 Good Plantarflexion (S1) 4- Good- Left Dorsiflexion (L4) 4 Good Plantarflexion (S1) 4- Good- PT-OP-Q Treatments Start: 12/15/17 12:58 Freq: Status: Active Protocol: Document 01/07/18 13:45 AMB (Rec: 01/07/18 15:06 AMB [email or web address]) Therapeutic Exercises Supine Exercises 2 Supine Exercise Name quad stretch Reps/Minutes 30x2 1 Supine Exercise Name lower trunk rotation Standing Exercises 4 Standing Exercise Name calf stretch Reps/Minutes 30x2 Comments XIOMARA 2 Standing Exercise Name hamstring stretch Reps/Minutes 30x2 Comments stair Gait Training Gait Activity 1 Description ambulating over smooth surface Device Used none Comments head turns, dual tasking with counting backwards by 3, then 4 Neuro Re-Education Treatment Balance Activities 5 Details Backward step and reach Reps/Duration 10x2 4 Details Side step and reach Reps/Duration 10x2 3 Details Forward step and reach Reps/Duration 10x2 Comments No UE assist 2 Details [place] and reach- sideways Reps/Duration 12x2 Comments No UE assist 1 Details [place] and reach- forward Reps/Duration 12x2 Comments No UE assist Other Activities 2 Details Side to side Reps/Duration 8 1 Details Floor to ceiling Reps/Duration 8 PT-OP-T Assessment and Plan Start: 12/15/17 12:58 Freq: Status: Active Protocol: Document 01/07/18 13:45 AMB (Rec: 01/07/18 15:06 AMB [email or web address]) Physical Therapy Assessment Assessment Summary Assessment Pt continues to need vc for correct form with exercises. Physical Therapy Plan Next Visit Focus/Plan Next Note Type Treatment Note Next Visit Plan Plan to finalize HEP and recheck objective data next week.
--- NOTE | 2018-01-12 15:42 | PT.OTN ---
Current Diagnoses Parkinson's disease (01/12/18) Physical Therapy Treatment Note PT-OP-A Visit Information Start: 12/15/17 12:58 Freq: Status: Active Protocol: Document 01/12/18 13:45 AMB (Rec: 01/12/18 15:42 AMB [email or web address]) Out-Patient Physical Therapy Visit Information Visit Information Visit Type Treatment Note Visit Note 07/27 Visit Start Time 13:45 Visit Stop Time 14:45 Total Visit Minutes 60 Visit Number 15 PT-OP-B Current Condition Start: 12/15/17 12:58 Freq: Status: Active Protocol: Document 12/15/17 13:45 AMB (Rec: 12/15/17 15:33 AMB [email or web address]) Current Condition History of Current Condition Onset Date 5 years ago Current Complaints Difficulty shaving, chopping food, walking and eating quickly History of Current Condition The patient was diagnosed with Parkinson's disease about 5 years ago. He lives with his in a 2 story home (spiral staircase) with 1 step to enter without a railing. He is right hand dominant with an intention tremor bilaterally worse on the right. He ambulates without assistive device with no reported falls. Prior Functional Status Baseline Function- ADL's Independent Baseline Function- Mobility Independent Baseline Function- Work/School Retired but drives Baseline Function- Recreation/Hobbies Stopped going to the gym due to fatigue Current Functional Impairments (Reported) Functional Limitations- ADL's Difficulty shaving, brushing his teeth due to the tremor Personal Factors Other Personal Factors That May Effect History of stent placement Therapy/Recovery about 10 years ago, back pain, right shoulder pain, bilateral foot and knee pain, neck pain. PT-OP-C Subjective Start: 12/15/17 12:58 Freq: Status: Active Protocol: Document 01/12/18 13:45 AMB (Rec: 01/12/18 15:42 AMB [email or web address]) OP-PT Subjective Patient Comments Patient Comments Pt did not sleep well last night, but is doing ok/ PT-OP-E Functional Tests Start: 12/15/17 12:58 Freq: Status: Active Protocol: Document 12/31/17 13:45 AMB (Rec: 12/31/17 14:26 AMB [email or web address]) Functional Tests 6 Minute Walk Test Distance 1323 PT-OP-G Mobility & Gait Start: 12/15/17 12:58 Freq: Status: Active Protocol: Document 12/15/17 13:45 AMB (Rec: 12/15/17 15:40 AMB [email or web address]) OP Gait Assessment Comments Gait Comments Internally rotates shoulders with lack of shoulder extension with arm swing. Pt had one moment of tripping over his R toe but regained his balance independently. PT-OP-H Neuro Start: 12/15/17 12:58 Freq: Status: Active Protocol: Document 12/15/17 13:45 AMB (Rec: 12/15/17 15:40 AMB [email or web address]) Muscle Tone Tone Assessment Right Upper Extremity Manifestations of Tone Intention Tremors Left Upper Extremity Manifestations of Tone Intention Tremors Right Lower Extremity Flexor Tone Description Rigidity Left Lower Extremity Flexor Tone Description Rigidity PT-OP-J Posture/Palpation/Skin Start: 12/15/17 12:58 Freq: Status: Active Protocol: Document 12/15/17 13:45 AMB (Rec: 12/15/17 15:40 AMB [email or web address]) Posture Evaluation Comments Posture Comments Forward head, rounded shoulders, flat lumbar spine PT-OP-K Range of Motion Start: 12/15/17 12:58 Freq: Status: Active Protocol: Document 12/15/17 13:45 AMB (Rec: 12/15/17 15:40 AMB [email or web address]) Shoulder Goniometric Range of Motion Shoulder Measured in Degrees Right Passive Testing Position Supine Flexion 140 Left Passive Testing Position Supine Flexion 156 PT-OP-M Strength Start: 12/15/17 12:58 Freq: Status: Active Protocol: Document 12/15/17 13:45 AMB (Rec: 12/15/17 15:40 AMB [email or web address]) Hand Label Stitcher/Pinch Strength Hand Dominance Hand Dominance Right Hand Strength Right Label Stitcher (lbs) 80 Left Label Stitcher (lbs) 75 Hip Strength Hip Manual Muscle Testing Right Flexion (L2) 3+ Fair+ Extension (S1) 3 Fair Abduction 3 Fair Left Flexion (L2) 4- Good- Extension (S1) 4- Good- Abduction 4- Good- Knee Strength Knee Manual Muscle Testing Right Flexion (S2) 4 Good Extension (L3) 4 Good Left Flexion (S2) 4 Good Extension (L3) 4 Good Ankle/Foot Strength Ankle and Foot Manual Muscle Testing Right Dorsiflexion (L4) 4 Good Plantarflexion (S1) 4- Good- Left Dorsiflexion (L4) 4 Good Plantarflexion (S1) 4- Good- PT-OP-Q Treatments Start: 12/15/17 12:58 Freq: Status: Active Protocol: Document 01/12/18 13:45 AMB (Rec: 01/12/18 15:42 AMB [email or web address]) Therapeutic Exercises Supine Exercises 2 Supine Exercise Name quad stretch Reps/Minutes 30x2 1 Supine Exercise Name lower trunk rotation Standing Exercises 1 Standing Exercise Name forward lunges Reps/Minutes 2x10 Comments with trunk rotation Gait Training Gait Activity 1 Description ambulating over smooth surface Device Used none Comments head turns, dual tasking with counting backwards by 3, then 4 Neuro Re-Education Treatment Balance Activities 5 Details Backward step and reach Reps/Duration 10x2 4 Details Side step and reach Reps/Duration 10x2 3 Details Forward step and reach Reps/Duration 10x2 Comments No UE assist 2 Details [place] and reach- sideways Reps/Duration 12x2 Comments No UE assist 1 Details [place] and reach- forward Reps/Duration 12x2 Comments No UE assist Other Activities 2 Details Side to side Reps/Duration 8 1 Details Floor to ceiling Reps/Duration 8 PT-OP-T Assessment and Plan Start: 12/15/17 12:58 Freq: Status: Active Protocol: Document 01/12/18 13:45 AMB (Rec: 01/12/18 15:42 AMB [email or web address]) Physical Therapy Assessment Assessment Summary Assessment Pt doing better with exercises but still needs encouragement to maintain maximum ROM. Physical Therapy Plan Next Visit Focus/Plan Next Note Type Discharge Summary
--- NOTE | 2018-01-14 10:25 | PT.OTN ---
Current Diagnoses Parkinson's disease (01/13/18) Physical Therapy Treatment Note PT-OP-A Visit Information Start: 12/15/17 12:58 Freq: Status: Active Protocol: Document 01/13/18 11:00 AMB (Rec: 01/14/18 08:56 AMB [email or web address]) Out-Patient Physical Therapy Visit Information Visit Information Visit Type Discharge Summary Visit Start Time 11:00 Visit Stop Time 12:00 Total Visit Minutes 60 Visit Number 16 PT-OP-B Current Condition Start: 12/15/17 12:58 Freq: Status: Active Protocol: Document 12/15/17 13:45 AMB (Rec: 12/15/17 15:33 AMB [email or web address]) Current Condition History of Current Condition Onset Date 5 years ago Current Complaints Difficulty shaving, chopping food, walking and eating quickly History of Current Condition The patient was diagnosed with Parkinson's disease about 5 years ago. He lives with his in a 2 story home (spiral staircase) with 1 step to enter without a railing. He is right hand dominant with an intention tremor bilaterally worse on the right. He ambulates without assistive device with no reported falls. Prior Functional Status Baseline Function- ADL's Independent Baseline Function- Mobility Independent Baseline Function- Work/School Retired but drives Baseline Function- Recreation/Hobbies Stopped going to the gym due to fatigue Current Functional Impairments (Reported) Functional Limitations- ADL's Difficulty shaving, brushing his teeth due to the tremor Personal Factors Other Personal Factors That May Effect History of stent placement Therapy/Recovery about 10 years ago, back pain, right shoulder pain, bilateral foot and knee pain, neck pain. PT-OP-C Subjective Start: 12/15/17 12:58 Freq: Status: Active Protocol: Document 01/13/18 11:00 AMB (Rec: 01/14/18 08:56 AMB [email or web address]) OP-PT Subjective Patient Comments Patient Comments Overall pt feels he is doing about the same, his tremor continues to bother him. PT-OP-E Functional Tests Start: 12/15/17 12:58 Freq: Status: Active Protocol: Document 01/13/18 11:00 AMB (Rec: 01/14/18 08:56 AMB [email or web address]) Functional Tests 6 Minute Walk Test Distance 1313 Device Used none Five Times Sit to Stand Test Score 7 PT-OP-G Mobility & Gait Start: 12/15/17 12:58 Freq: Status: Active Protocol: Document 12/15/17 13:45 AMB (Rec: 12/15/17 15:40 AMB [email or web address]) OP Gait Assessment Comments Gait Comments Internally rotates shoulders with lack of shoulder extension with arm swing. Pt had one moment of tripping over his R toe but regained his balance independently. PT-OP-H Neuro Start: 12/15/17 12:58 Freq: Status: Active Protocol: Document 12/15/17 13:45 AMB (Rec: 12/15/17 15:40 AMB [email or web address]) Muscle Tone Tone Assessment Right Upper Extremity Manifestations of Tone Intention Tremors Left Upper Extremity Manifestations of Tone Intention Tremors Right Lower Extremity Flexor Tone Description Rigidity Left Lower Extremity Flexor Tone Description Rigidity PT-OP-J Posture/Palpation/Skin Start: 12/15/17 12:58 Freq: Status: Active Protocol: Document 12/15/17 13:45 AMB (Rec: 12/15/17 15:40 AMB [email or web address]) Posture Evaluation Comments Posture Comments Forward head, rounded shoulders, flat lumbar spine PT-OP-K Range of Motion Start: 12/15/17 12:58 Freq: Status: Active Protocol: Document 01/13/18 11:00 AMB (Rec: 01/14/18 08:56 AMB [email or web address]) Shoulder Goniometric Range of Motion Shoulder Measured in Degrees Right Passive Flexion 150 Left Passive Flexion 157 PT-OP-M Strength Start: 12/15/17 12:58 Freq: Status: Active Protocol: Document 12/15/17 13:45 AMB (Rec: 12/15/17 15:40 AMB [email or web address]) Hand Counterintelligence/Humint Specialist/Pinch Strength Hand Dominance Hand Dominance Right Hand Strength Right Counterintelligence/Humint Specialist (lbs) 80 Left Counterintelligence/Humint Specialist (lbs) 75 Hip Strength Hip Manual Muscle Testing Right Flexion (L2) 3+ Fair+ Extension (S1) 3 Fair Abduction 3 Fair Left Flexion (L2) 4- Good- Extension (S1) 4- Good- Abduction 4- Good- Knee Strength Knee Manual Muscle Testing Right Flexion (S2) 4 Good Extension (L3) 4 Good Left Flexion (S2) 4 Good Extension (L3) 4 Good Ankle/Foot Strength Ankle and Foot Manual Muscle Testing Right Dorsiflexion (L4) 4 Good Plantarflexion (S1) 4- Good- Left Dorsiflexion (L4) 4 Good Plantarflexion (S1) 4- Good- PT-OP-Q Treatments Start: 12/15/17 12:58 Freq: Status: Active Protocol: Document 01/13/18 11:00 AMB (Rec: 01/14/18 08:56 AMB [email or web address]) Therapeutic Exercises Supine Exercises 2 Supine Exercise Name quad stretch Reps/Minutes 30x2 1 Supine Exercise Name lower trunk rotation Standing Exercises 4 Standing Exercise Name calf stretch Reps/Minutes 30x2 Comments XIOMARA 3 Standing Exercise Name pec stretch in corner Reps/Minutes 30x2 2 Standing Exercise Name hamstring stretch Reps/Minutes 30x2 Comments stair Gait Training Gait Activity 1 Description ambulating over smooth surface Device Used none Comments head turns, dual tasking with counting backwards Neuro Re-Education Treatment Balance Activities 5 Details Backward step and reach Reps/Duration 10x2 4 Details Side step and reach Reps/Duration 10x2 3 Details Forward step and reach Reps/Duration 10x2 Comments No UE assist 2 Details [place] and reach- sideways Reps/Duration 12x2 Comments No UE assist 1 Details [place] and reach- forward Reps/Duration 12x2 Comments No UE assist Other Activities 2 Details Side to side Reps/Duration 8 1 Details Floor to ceiling Reps/Duration 8 PT-OP-T Assessment and Plan Start: 12/15/17 12:58 Freq: Status: Active Protocol: Document 01/13/18 11:00 AMB (Rec: 01/14/18 10:21 AMB [email or web address]) Physical Therapy Assessment Goals Four Impairment UE flexibility Short Term Goal (STG) The patient will improve his bilateral shoulder flexion to 160 degrees. (improved to 155) STG Duration PROGRESS MADE Three Impairment LE strength Short Term Goal (STG) The patient will improve his 5x sit to stand to 6 seconds. (improved to 7) STG Duration PROGRESS MADE Model And Dye Person Goal (LTG) The patient will be independent with a HEP to improve LE strenght and dynamic stability. LTG Duration MET Two Impairment self care Short Term Goal (STG) The patient will improve his fine motor coordination so that he is able to eat a meal in the same time as his , he may need to use weighted utensils. STG Duration NOT MET One Impairment gait Short Term Goal (STG) The patient will ambulate throughout the grocery store for 30 minutes without fatigue . STG Duration MET Half-Way Goal (LTG) The patient will improve his 6MWT to 1,500 feet to have more socially appropriate walking speed. LTG Duration NOT MET Assessment Summary Assessment Overall the patient has made good progress with his sit to stand and shoulder range of motion. His fine motor activities are still limited by his tremor. His walking speed has not significantly changed, he feels he has always been a slow walker. Physical Therapy Plan Discharge Physical Therapy Discharge Comments Finished [facility] program
== END 2018-02-02 11:51 ==
LOC: PHYS 11:00
PROVIDERS: PCP Student in an Organized Health Care Education/Training Program; Visit Provider Psychiatry & Neurology Neurology
DX: G20 Parkinson's disease (principal)
CPT/HCPCS: 97110; 97112; 97116; 97162; 97530

== ENCOUNTER → 2018-10-13 16:51 | Outpatient (CLI) | payer MEDICARE, OTHER, SELFPAY ==
[2018-10-13 17:25] LABS: Add Manual Diff / Slide Review NO; Basophils Absolute Auto 100 /uL (0-100); Eosinophils Absolute Auto 200 /uL (0-450); Eosinophils Percent Auto 2.3 % (2-4); Hematocrit 42.2 % (41-53); Hemoglobin 14.3 g/dL (13.5-17.5); Lymphocytes Absolute Auto 2100 /uL (1100-4500); Lymphocytes Percent Auto 26.1 % (25-40); Mean Corpuscular HGB Conc 33.8 % (30-36); Mean Corpuscular Hemoglobin 31.7 PG (26-34); Mean Corpuscular Volume 93.8 fL (80-100); Monocytes Absolute Auto 600 /uL (0-900); Monocytes Percent Auto 7.3 % (3-14); Neutrophils Absolute Auto 5000 /uL (1500-7000); Neutrophils Percent Auto 63.3 % (50-75); Platelet Count 138 X10^3/uL (150-400); Red Cell Distribution Width 12.8 % (11.6-14.8); White Blood Cell Count 7.9 X10^3/uL (4.5-11.0)
[2018-10-13 17:42] LABS: Albumin 4.2 g/dL (3.5-5.0); Albumin Globulin Ratio 1.7 (1.0-2.8); Alkaline Phosphatase 58 U/L (38-126); Aspartate Aminotransferase 21 IU/L (17-59); Bilirubin Total 0.6 mg/dL (0.2-1.3); Blood Urea Nitrogen 27 mg/dL (9-20); Calcium 9.8 mg/dL (8.4-10.2); Carbon Dioxide 28 mmol/L (22-32); Chloride 106 mmol/L (98-107); Estimated Glomerular Filt Rate > 60.0 mL/min (>60); Globulin 2.5 g/dL (1.7-4.1); Glucose 117 mg/dL (80-110); HEMOLYSIS < 15 (0-50); Lipase 245 U/L (23-300); Potassium 4.6 mmol/L (3.4-5.1); Sodium 142 mmol/L (137-145); Total Protein 6.7 g/dL (6.3-8.2)
[2018-10-13 17:46] LABS: C-Reactive Protein Quant < 0.5 mg/dL (<1.0)
[2018-10-13 17:58] LABS: Alanine Aminotransferase < 6 IU/L (21-72)
== END ==
PROVIDERS: PCP Student in an Organized Health Care Education/Training Program; Visit Provider Student in an Organized Health Care Education/Training Program
DX: R10.9 Unspecified abdominal pain (principal)
CPT/HCPCS: 36415; 80053; 83690; 85025; 86140

== ENCOUNTER 2019-08-16 11:31 | Emergency (ER) | payer MEDICARE, OTHER, SELFPAY ==
[2019-08-16] VITALS (36 sets, daily range): BP systolic 90–175; BP diastolic 51–78; PULSE 51–61; RESP 12–58; TEMP 36.3; O2SAT 95–100
--- NOTE | 2019-08-16 11:49 | ED_ITS ---
HPI - General Adult General Chief complaint: Syncope Stated complaint: Light Headed, Keeps Collapsing, Sent From Dr Time Seen by Provider: 08/16/19 11:49 History of Present Illness HPI narrative: 79-year-old gentleman with a history of Parkinson's disease presents with weakness, instability, lightheadedness and increasing falls. Three weeks ago he had 2 episodes by 48 hours with complete syncope and hitting his head. He has continued to have increasing weakness over the en suing 3 weeks and over the last 48 hours his gotten progressively weaker to the point that he is unable to stand up without having a near syncopal episode. Approximately 1 and half weeks ago he had an episode where he was so weak he did get out of bed for the day. After phone consultation with his neurologist she felt it was simply 1 of his bad Parkinson's days and he in fact was significantly better the following day without additional interventions. Describes no fever, cough, chills, chest pain, palpitation, dyspnea, edema. Notes that he has had a CABG as well as coronary stents placed never had an acute cardiac episode or anginal pain. He has had no vomiting, diarrhea abdominal pain dysuria or flank pain. Feels that his Parkinson's disease is relatively stable and aside from weakness and instability has not noticed increased muscle tonus Related Data Home Medications Medication Instructions Recorded Confirmed carbidopa ER 50 mg-levodopa 200 mg 1 tab PO QID 90 Days tab 01/13/18 08/16/19 tablet,extended release donepezil 10 mg tablet 20 mg PO BEDTIME 90 Days tab 01/13/18 08/16/19 melatonin 10 mg capsule 10 mg PO BEDTIME PRN 01/13/18 08/16/19 entacapone 200 mg tablet 200 mg PO QID 11/25/18 08/16/19 selegiline HCl 5 mg capsule 5 mg PO BID 07/16/19 08/16/19 Ginko Biloba 120 mg PO DAILY 08/16/19 08/16/19 magnesium 500 mg PO BEDTIME 08/16/19 08/16/19 sennosides [senna] 8.6 mg PO BEDTIME 08/16/19 08/16/19 Previous Rx's Medication Instructions Recorded propranolol 10 mg tablet 10 mg PO BID #180 tab 12/09/18 omeprazole 20 mg capsule,delayed 20 mg PO DAILY #90 cap 02/04/19 release pravastatin 20 mg tablet 20 mg PO BEDTIME #90 tab 02/04/19 citalopram 20 mg tablet 20 mg PO QDAY #90 tab 06/11/19 clonazepam 1 mg tablet 1.5 mg PO BID #270 tab 06/11/19 mirtazapine 45 mg tablet 45 mg PO BEDTIME #90 tab 06/11/19 tamsulosin 0.4 mg capsule 0.4 mg PO DAILY #90 cap 07/28/19 levomefolate calcium 15 mg tablet 15 mg PO DAILY #90 tab 07/29/19 Allergies Allergy/AdvReac Type Severity Reaction Status Date / Time No Known Drug Allergies Allergy Verified 07/16/19 14:00 Review of Systems Review of Systems Narrative: Pertinent positive and negative findings as per HPI Remainder of review of systems is otherwise unremarkable for Constitutional: Fevers, chills, ENT: No sore throat, neck pain, ear pain CV: Chest pain, palpitations, dyspnea on exertion Respiratory: Cough, wheeze, dyspnea GI: Nausea, vomiting, diarrhea, change in bowel habits, black or bloody stools : Dysuria, hematuria, flank pain Patient History Medical History (Updated 08/16/19 @ 16:41 by Charissa Crowder MD) Anxiety (Chronic) Arthritis (Chronic) Bilateral thigh pain (Chronic) Chicken pox (Resolved) Chickenpox (Resolved Unknown) Chronic back pain (Chronic 1965) Chronic fatigue (Chronic 2013) Colon polyps (Resolved 2009) Coronary artery disease (Chronic) Depression (Chronic 2015) Erectile dysfunction (Chronic) Foot pain (Chronic ~2017) Hiatal hernia (Chronic) Hiatal hernia (Chronic) Hypercholesterolemia (Chronic) Hypertension (Chronic) Mumps (Resolved Unknown) Mumps (Resolved) Panic attacks (Chronic) Parkinson's disease (Chronic 2015) Proximal muscle weakness (Chronic) Surgical History (Updated 01/20/18 @ 09:20 by Nahed Altamirano) Anesthesia (Resolved) History of colonoscopy with polypectomy (Resolved 11/19/17) History of colonoscopy with polypectomy (Resolved 2009) History of tonsillectomy and adenoidectomy (Resolved) S/P CABG (coronary artery bypass graft) (Resolved 06/2003) Status post coronary artery bypass graft (Resolved) Status post tonsillectomy and adenoidectomy (Resolved) Family History (Updated 01/20/18 @ 09:08 by Nahed Altamirano) Father CAD (coronary artery disease) CVA (cerebral vascular accident) Hypertension Diabetes mellitus Heart attack Mother Hypertension Grandmother Diabetes mellitus Grandfather No problems noted. Brother No problems noted. Sister No problems noted. Social History household members: spouse Smoking Status: Never smoker Smoking Status: Never smoker Exam Narrative Exam Narrative: General: Healthy appearing, in no acute distress. Able to give a complete and coherent history. Well-nourished well-developed HEENT: Moist mucous membranes, normal sclera with reactive pupils, Neck: supple Respiratory: Lungs are clear to auscultation, no wheezing no rales no rhonchi. Full and symmetrical air movement Cardiac: Regular rate and rhythm no murmurs no bruits Abdomen: Soft nontender good bowel tones, no flank pain Skin: Warm and dry, no rashes Neurologic: Grossly neurologically intact with no obvious asymmetries or abnormalities, globally weak. No increased tonus or cogwheel rigidity Extremities: No trauma, well perfused Psych: Cooperative, appropriate insight and affect Initial Vital Signs Initial Vital Signs: Vital Signs Temperature 97.4 F L 08/16/19 11:40 Pulse Rate 57 L 08/16/19 11:40 Respiratory Rate 22 08/16/19 11:40 Blood Pressure 143/63 H 08/16/19 11:40 Pulse Oximetry 98 08/16/19 11:40 Course Orders Ordered: ED Orders 08/16/19 11:47 EKG-12 Lead Stat 08/16/19 11:55 Complete Blood Count AUTO DIFF Stat Comprehensive Metabolic Panel Stat Lipase Stat Partial Thromboplastin Time Stat Prothrombin Time INR Stat Troponin & CK Cardiac Panel Stat 08/16/19 11:56 XR chest 1V Stat 08/16/19 12:11 CT head/brain wo con Stat 08/16/19 12:14 Magnesium Stat 08/16/19 13:36 CT abdomen pelvis w con Stat 08/16/19 14:38 EKG-12 Lead Stat Discontinued Medications Sodium Chloride (Normal Saline 0.9%) 1,000 mls @ 1,000 mls/hr IV BOLUS ONE Stop: 08/16/19 13:38 Last Infusion: 08/16/19 14:31 Dose: 0 mls/hr Documented by: Admin: 08/16/19 13:01 Dose: 1,000 mls/hr Documented by: [facility] Vital Signs Vital signs: Vital Signs - 8 hr 08/16/19 11:40 08/16/19 11:42 08/16/19 11:45 Temperature 97.4 F L Pulse Rate 57 L Respiratory Rate 22 Blood Pressure 143/63 H 143/63 H 138/67 Pulse Oximetry 98 08/16/19 11:50 08/16/19 11:55 08/16/19 12:00 Temperature Pulse Rate 59 L 60 59 L Respiratory Rate 24 18 28 H Blood Pressure 109/56 L Pulse Oximetry 98 100 99 08/16/19 12:05 08/16/19 12:15 08/16/19 12:20 Temperature Pulse Rate 61 58 L Respiratory Rate 27 H 27 H Blood Pressure 98/57 L Pulse Oximetry 100 99 08/16/19 12:30 08/16/19 12:59 08/16/19 13:00 Temperature Pulse Rate 55 L 55 L Respiratory Rate 56 H 47 H Blood Pressure 90/53 L 105/51 L Pulse Oximetry 95 96 08/16/19 13:15 08/16/19 13:30 08/16/19 13:40 Temperature Pulse Rate 53 L 56 L Respiratory Rate 31 H 43 H Blood Pressure 104/51 L 103/55 L Pulse Oximetry 96 99 08/16/19 13:52 08/16/19 14:10 08/16/19 14:16 Temperature Pulse Rate 61 55 L 55 L Respiratory Rate 58 H 34 H Blood Pressure 133/60 Pulse Oximetry 98 96 98 08/16/19 14:20 08/16/19 14:30 08/16/19 14:40 Temperature Pulse Rate 53 L 53 L 56 L Respiratory Rate 42 H 28 H 22 Blood Pressure 128/59 L Pulse Oximetry 98 97 99 08/16/19 14:45 08/16/19 14:50 08/16/19 15:00 Temperature Pulse Rate 52 L 51 L 52 L Respiratory Rate 35 H 25 H 24 Blood Pressure 134/65 126/58 L Pulse Oximetry 98 98 97 08/16/19 15:10 08/16/19 15:15 08/16/19 15:20 Temperature Pulse Rate 52 L 53 L 53 L Respiratory Rate 25 H 22 15 Blood Pressure 126/60 Pulse Oximetry 98 97 100 08/16/19 15:34 08/16/19 15:40 06/29/20 15:43 Temperature Pulse Rate 59 L 52 L 52 L Respiratory Rate 15 14 23 Blood Pressure 142/67 H Pulse Oximetry 95 100 100 Medical Decision Making Medical Records Medical records reviewed: Yes I reviewed the patient's medical records. Lab Data Lab results reviewed: Yes I reviewed the patient's lab results. Lab results narrative: Unexpected dramatically elevated lipase Result diagrams: 08/16/19 11:55 08/16/19 11:55 Labs: Lab Results 08/16/19 08/16/19 08/16/19 Range/Units 11:55 11:55 11:55 WBC 8.7 (4.5-11.0) X10^3/uL RBC 4.22 L (4.5-5.9) X10^6/uL Hgb 13.6 (13.5-17.5) g/dL Hct 39.0 L (41-53) % MCV 92.4 (80-100) fL MCH 32.3 (26-34) PG MCHC 35.0 (30-36) % RDW 13.0 (11.6-14.8) % Plt Count 151 (150-400) X10^3/uL Neut % (Auto) 65.7 (50-75) % Lymph % (Auto) 21.4 L (25-40) % Saline % (Auto) 10.4 (3-14) % Eos % (Auto) 1.7 L (2-4) % Baso % (Auto) 0.8 (0-2) % Neut # (Auto) 5700 (3019-7210) /uL Lymph # (Auto) 1900 (5739-8287) /uL Saline # (Auto) 900 (0-900) /uL Eos # (Auto) 100 (0-450) /uL Baso # (Auto) 100 (0-100) /uL PT 10.6 (10.1-12.7) SECONDS INR 0.9 (0.9-1.3) APTT 22 L (26.4-36.2) SECONDS Sodium 137 (137-145) mmol/L Potassium 4.9 (3.4-5.1) mmol/L Chloride 106 (98-107) mmol/L Carbon Dioxide 26 (22-32) mmol/L BUN 22 H (9-20) mg/dL Creatinine 1.17 (0.66-1.25) mg/dL Estimated GFR > 60.0 (>60) mL/min BUN/Creatinine Ratio 18.8 (6-22) Glucose 121 H (80-110) mg/dL Calcium 9.4 (8.4-10.2) mg/dL Magnesium (1.6-2.3) mg/dL Total Bilirubin 1.0 (0.2-1.3) mg/dL AST 31 (17-59) IU/L ALT 6 (<50) IU/L Alkaline Phosphatase 46 (38-126) U/L Total Creatine Kinase 83 (55-170) U/L CK-MB (CK-2) TNP CK-MB (CK-2) Rel Index TNP Troponin I < 0.012 (0.01-0.034) ng/mL Total Protein 6.9 (6.3-8.2) g/dL Albumin 4.3 (3.5-5.0) g/dL Globulin 2.6 (1.7-4.1) g/dL Albumin/Globulin Ratio 1.7 (1.0-2.8) Lipase 1243 H (23-300) U/L 08/16/19 Range/Units 12:14 WBC (4.5-11.0) X10^3/uL RBC (4.5-5.9) X10^6/uL Hgb (13.5-17.5) g/dL Hct (41-53) % MCV (80-100) fL MCH (26-34) PG MCHC (30-36) % RDW (11.6-14.8) % Plt Count (150-400) X10^3/uL Neut % (Auto) (50-75) % Lymph % (Auto) (25-40) % Saline % (Auto) (3-14) % Eos % (Auto) (2-4) % Baso % (Auto) (0-2) % Neut # (Auto) (9223-4304) /uL Lymph # (Auto) (0711-8214) /uL Saline # (Auto) (0-900) /uL Eos # (Auto) (0-450) /uL Baso # (Auto) (0-100) /uL PT (10.1-12.7) SECONDS INR (0.9-1.3) APTT (26.4-36.2) SECONDS Sodium (137-145) mmol/L Potassium (3.4-5.1) mmol/L Chloride (98-107) mmol/L Carbon Dioxide (22-32) mmol/L BUN (9-20) mg/dL Creatinine (0.66-1.25) mg/dL Estimated GFR (>60) mL/min BUN/Creatinine Ratio (6-22) Glucose (80-110) mg/dL Calcium (8.4-10.2) mg/dL Magnesium 2.4 H (1.6-2.3) mg/dL Total Bilirubin (0.2-1.3) mg/dL AST (17-59) IU/L ALT (<50) IU/L Alkaline Phosphatase (38-126) U/L Total Creatine Kinase (55-170) U/L CK-MB (CK-2) CK-MB (CK-2) Rel Index Troponin I (0.01-0.034) ng/mL Total Protein (6.3-8.2) g/dL Albumin (3.5-5.0) g/dL Globulin (1.7-4.1) g/dL Albumin/Globulin Ratio (1.0-2.8) Lipase (23-300) U/L Imaging Data CT scan - head: Attestation: I personally reviewed and interpreted this imaging study as follows: Radiologist's Impression: IMPRESSION: No acute intracranial abnormality demonstrated. Dictated by: Evangelista Melo M.D. on 08/16/2019 at 13:00 Chest x-ray: Radiologist's Impression: IMPRESSION: No acute cardiopulmonary abnormality. Dictated by: Evangelista Melo M.D. on 08/16/2019 at 12:23 ECG Data Attestation: I personally reviewed and interpreted this ECG as follows: Interpretation: Sinus rhythm at a rate of 58 Normal axis, normal intervals Incomplete right bundle-branch block No acute ischemia MDM Narrative Medical decision making narrative: 79-year-old gentleman with a history of Parkinson's disease he has had increasing episodes near-syncope when standing up with multiple falls related to this. He is not orthostatic with these episodes. Workup for severe pathology including infection, intracranial bleed, acute coronary syndrome or other arrhythmias, pulmonary embolism are all unremarkable. Lipase was significantly elevated without any clinical signs or symptoms of pancreatitis so CT scan was done and that to was unremarkable. Did have cholelithiasis without cholecystitis. Currently taking 50/200 carbidopa levodopa 4 times a day and selegiline 5 mg a.m. and at noon. Will talk with his neurologist to see if they have any suggestions regarding the continued near syncopal episodes. 410pm Dr Liu, neurology. Reviewed all findings and complaints. Biggest recommendation at this point was to continue current medications and consider physical therapy for deconditioning. Will present this to the patient. Will ask him to more consistently use his wheelchair or walker both of which he has available to him at home. Discharge Plan Departure Patient Disposition: Home Clinical Impression: Parkinson's disease, Weakness Instructions: DI for Parkinson's Disease Activity Restrictions/Additional Instructions: Thank you for coming in today With a thorough workup today a found no significant medical abnormalities. Specifically there was no bleeding or tumors inside your head. There is no evidence of a heart attack, stroke or stroke-like syndrome. No blood clots no infection no kidney failure no renal failure. I have reviewed her case with Dr. Liu, neurologist at [facility]. In light of the negative medical workup we have already done, his first recommendation was physical therapy. Said he would initiate a referral for this. He will also share your concerns and the information from this ER visit with Dr. Garg and she will contact to when she returns next week. He did not recommend any medication changes at this time Please make sure that you are using your wheelchair an your walker as consistently as possible so that any time you are having increasing weakness you have something to stabilize yourself and avoid falling. I wish you the best Prescriptions: No Action carbidopa-levodopa 50-200 mg tablet extended release 1 tab PO QID 90 Days RF: 0 donepezil 10 mg tablet 20 mg PO BEDTIME 90 Days RF: 0 melatonin 10 mg capsule 10 mg PO BEDTIME PRN (Reason: Insomnia) RF: 0 selegiline HCl 5 mg capsule 5 mg PO BID RF: 0 levomefolate calcium 15 mg tablet 15 mg PO DAILY Qty: 90 RF: 3 entacapone 200 mg tablet 200 mg PO QID RF: 0 pravastatin 20 mg tablet 20 mg PO BEDTIME Qty: 90 RF: 1 omeprazole 20 mg capsule,delayed release(DR/EC) 20 mg PO DAILY Qty: 90 RF: 1 citalopram [Celexa] 20 mg tablet 20 mg PO QDAY Qty: 90 RF: 2 clonazepam 1 mg tablet 1.5 mg PO BID Qty: 270 RF: 2 mirtazapine 45 mg tablet 45 mg PO BEDTIME Qty: 90 RF: 2 tamsulosin 0.4 mg capsule 0.4 mg PO DAILY Qty: 90 RF: 1 propranolol 10 mg tablet 10 mg PO BID Qty: 180 RF: 1 magnesium 250 mg Tablet 500 mg PO BEDTIME RF: 0 senna 8.6 mg Capsule 8.6 mg PO BEDTIME RF: 0 Ginko Biloba 120 mg PO DAILY RF: 0 Referrals: Raoul Salguero MD [Primary Care Provider] -
--- NOTE | 2019-08-16 11:56 | DI.RAD.S_ITS ---
PROCEDURE: XR CHEST 1V INDICATIONS: chest pain TECHNIQUE: One view of the chest was acquired. COMPARISON: [facility], , CHEST 2 VIEW, 08/07/2013, 22:35. FINDINGS: Surgical changes and devices: Post median sternotomy and CABG. Lungs and pleura: Lungs are clear. No pleural effusions or pneumothorax. Mediastinum: Mediastinal contours appear unchanged. Heart size is within normal limits. Bones and chest wall: No suspicious bony lesions. Overlying soft tissues appear unremarkable. IMPRESSION: No acute cardiopulmonary abnormality. Dictated by: Evangelista Melo M.D. on 08/16/2019 at 12:23 Approved by: Evangelista Melo M.D. on 08/16/2019 at 12:25
[2019-08-16 12:01] LABS: Add Manual Diff / Slide Review NO; Basophils Absolute Auto 100 /uL (0-100); Basophils Percent Auto 0.8 % (0-2); Eosinophils Absolute Auto 100 /uL (0-450); Eosinophils Percent Auto 1.7 % (2-4); Hemoglobin 13.6 g/dL (13.5-17.5); Lymphocytes Absolute Auto 1900 /uL (1100-4500); Lymphocytes Percent Auto 21.4 % (25-40); Mean Corpuscular Hemoglobin 32.3 PG (26-34); Mean Corpuscular Volume 92.4 fL (80-100); Monocytes Absolute Auto 900 /uL (0-900); Monocytes Percent Auto 10.4 % (3-14); Neutrophils Absolute Auto 5700 /uL (1500-7000); Neutrophils Percent Auto 65.7 % (50-75); Platelet Count 151 X10^3/uL (150-400); Red Blood Cell Count 4.22 X10^6/uL (4.5-5.9); White Blood Cell Count 8.7 X10^3/uL (4.5-11.0)
[2019-08-16 12:07] LABS: INR 0.9 (0.9-1.3); Prothrombin Time 10.6 SECONDS (10.1-12.7)
[2019-08-16 12:10] LABS: PTT Partial Thromboplastin Tim 22 SECONDS (26.4-36.2)
--- NOTE | 2019-08-16 12:11 | DI.CT.S_ITS ---
PROCEDURE: CT HEAD/BRAIN WO CON INDICATIONS: recurrent syncope and head injury TECHNIQUE: Noncontrast 4.5 mm thick angled axial sections acquired from the foramen magnum to the vertex, with coronal and sagittal reformats. For radiation dose reduction, the following was used: automated exposure control, adjustment of mA and/or kV according to patient size. COMPARISON: [facility], , STROKE PROTOCOL, 07/22/2013, 7:26. FINDINGS: Image quality: Excellent. CSF spaces: Basal cisterns are patent. No extra-axial fluid collections. Ventricles are normal in size and shape. Brain: No midline shift. No intracranial masses or hemorrhage. No large area of hypodensity in a vascular distribution to suggest acute infarction. Periventricular hypodensity consistent with chronic microvascular ischemic disease. Age related parenchymal loss. Skull and face: Calvarium and visualized facial bones are intact, without suspicious lesions. Sinuses: Visualized sinuses and mastoids are clear. IMPRESSION: No acute intracranial abnormality demonstrated. Dictated by: Evangelista Melo M.D. on 08/16/2019 at 13:00 Approved by: Evangelista Melo M.D. on 08/16/2019 at 13:04
[2019-08-16 12:12] LABS: Alanine Aminotransferase 6 IU/L (<50); Albumin 4.3 g/dL (3.5-5.0); Albumin Globulin Ratio 1.7 (1.0-2.8); Alkaline Phosphatase 46 U/L (38-126); Aspartate Aminotransferase 31 IU/L (17-59); BUN Creatinine Ratio 18.8 (6-22); Blood Urea Nitrogen 22 mg/dL (9-20); Calcium 9.4 mg/dL (8.4-10.2); Carbon Dioxide 26 mmol/L (22-32); Chloride 106 mmol/L (98-107); Creatine Kinase 83 U/L (55-170); Estimated Glomerular Filt Rate > 60.0 mL/min (>60); Globulin 2.6 g/dL (1.7-4.1); Glucose 121 mg/dL (80-110); HEMOLYSIS 90 (0-50); Lipase 1243 U/L (23-300); Potassium 4.9 mmol/L (3.4-5.1); Sodium 137 mmol/L (137-145); Total Protein 6.9 g/dL (6.3-8.2)
[2019-08-16 12:21] LABS: Magnesium 2.4 mg/dL (1.6-2.3)
[2019-08-16 12:24] LABS: Troponin I < 0.012 ng/mL (0.01-0.034)
[2019-08-16] MEDS: SODIUM CHLORIDE 0.9% 1,000 ML 1000 ML IV (13:01)
--- NOTE | 2019-08-16 13:36 | DI.CT.S_ITS ---
PROCEDURE: CT ABDOMEN PELVIS W CON INDICATIONS: elevated lipase TECHNIQUE: After the administration of intravenous contrast, 5 mm thick sections acquired from the diaphragm to the symphysis. 5 mm coronal and sagittal reformats were acquired. For radiation dose reduction, the following was used: automated exposure control, adjustment of mA and/or kV according to patient size. COMPARISON: None. FINDINGS: Image quality: Excellent. ABDOMEN: Lung bases: Lung bases are clear. Heart size is normal. Solid organs: Liver is normal in size. Ill-defined hypodense area involving posterior periphery of posterior segment right hepatic lobe is seen measures approximately 2.1 x 1.6 cm in size and with suggestion of peripheral nodular enhancement. Gallbladder contains 2 stones near neck of gallbladder. No gross gallbladder wall thickening or pericholecystic fluid is seen. Biliary system is non dilated. Pancreas enhances normally. Spleen is normal in size and enhancement. No adrenal nodules. Kidneys demonstrate normal size and enhancement, without hydronephrosis. Peritoneum and bowel: Bowel loops demonstrate normal wall thickness and caliber. No free fluid or air. The appendix is visualized and is within normal limits. Mild sigmoid diverticulosis is seen, no gross CT evidence of acute diverticulitis. Nodes and vessels: No retroperitoneal or mesenteric adenopathy by size criteria. Aorta and inferior vena cava are normal in size. Miscellaneous: No ventral hernias. PELVIS: Genitourinary: Bladder wall thickness is normal. Markedly enlarged prostate gland is noted with mass effect on floor of urinary bladder. Miscellaneous: No inguinal hernias or adenopathy. Bones: No suspicious bony lesions. No vertebral body compression fractures. IMPRESSION: 1. No gross abnormality is seen in pancreas. No peripancreatic fat stranding or fluid collection. 2. Cholelithiasis, no CT evidence of acute cholecystitis. 3. 2.1 x 1.6 cm slightly lobulated hypodense area involving right hepatic lobe with features suggestive of hepatic hemangioma. Followup study with CT or MRI of abdomen without and with contrast can be done for further evaluation on a non-urgent basis. 3. Sigmoid diverticulosis, no CT evidence of acute diverticulitis. No bowel obstruction. Normal appendix. No free fluid or free air. 4. Enlarged prostate gland with mass effect on floor of urinary bladder. Dictated by: Brandon Cueto M.D. on 08/16/2019 at 14:17 Approved by: Brandon Cueto M.D. on 08/16/2019 at 14:21
--- NOTE | 2019-08-16 14:38 | PC.NURSE ---
Addendum entered by Heather Novoa R.N. 08/16/19 14:39: SOB or dizziness with bradycadia. Original Note: Repeat EKG. Patient consistently 48bpm. Resting denies chest pain.
== END 2019-08-16 17:00 | disposition home or self-care (01) ==
PROVIDERS: Emergency Provider Emergency Medicine; PCP Student in an Organized Health Care Education/Training Program
DX: G20 Parkinson's disease (principal); R53.1 Weakness; R29.6 Repeated falls; S09.90XA Unspecified injury of head, initial encounter; R79.89 Other specified abnormal findings of blood chemistry; R07.9 Chest pain, unspecified
CPT/HCPCS: 36415; 70450; 71045; 74177; 80053; 82550; 83690; 83735; 84484; 85025; 85610; 85730; 93005; 96360; 99284; Q9967

== ENCOUNTER 2019-08-27 13:05 | Inpatient (IN) | payer MEDICARE, OTHER, SELFPAY ==
[2019-08-27] VITALS (11 sets, daily range): BP systolic 103–165; BP diastolic 52–72; PULSE 55–66; RESP 11–20; TEMP 36.6–37.1; O2SAT 94–98; BMI 25.0
--- NOTE | 2019-08-27 13:11 | DI.CT.S_ITS ---
PROCEDURE: CT HEAD/BRAIN WO CON INDICATIONS: fall. head injury, mental status change TECHNIQUE: Noncontrast 4.5 mm thick angled axial sections acquired from the foramen magnum to the vertex, with coronal and sagittal reformats. For radiation dose reduction, the following was used: automated exposure control, adjustment of mA and/or kV according to patient size. COMPARISON: [facility], MR, STROKE PROTOCOL, 07/22/2013, 7:26. [facility], MR, BRAIN WITHOUT CONTRAST, 11/17/2012, 13:21. [facility], CT, CT HEAD/BRAIN WO CON, 08/16/2019, 12:31. FINDINGS: Image quality: Excellent. CSF spaces: Basal cisterns are patent. No extra-axial fluid collections. The ventricles are symmetric in size and shape. Brain: No intracranial bleeds or masses. There is cerebral volume loss for age, with resultant ventricular and sulcal prominence. There are periventricular and deep white matter chronic small vessel ischemic changes. There is intracranial internal carotid artery atherosclerosis. Skull and face: Calvarium and visualized facial bones appear intact, without suspicious lesions. Sinuses: Visualized sinuses and mastoids are clear. IMPRESSION: 1. No acute intracranial abnormalities. Dictated by: Marley Alicea M.D. on 08/27/2019 at 13:40 Approved by: Marley Alicea M.D. on 08/27/2019 at 13:44
--- NOTE | 2019-08-27 13:12 | PC.NURSE ---
Dr Frausto seeing patient currently
--- NOTE | 2019-08-27 13:23 | ED_ITS ---
HPI - Fall General Chief Complaint: Fall Stated Complaint: fell Time Seen by Provider: 08/27/19 13:11 Source: patient and family Mode of arrival: Ambulatory Limitations: no limitations History of Present Illness HPI Narrative: 79-year-old male nonsmoker with history of Parkinson's presents with a chief complaint of a ground level fall last evening. He had been ambulating stumbled and fell back, striking the back of his head. He did not suffer loss of consciousness and has had no vomiting. He does not take blood thinners. He did have some trouble with word finding immediately after and then seemed to return to baseline prior to bed. Upon waking this morning he was at his baseline and at about 9:00 a.m. placed a call to his and was unable to speak and difficulty finding words. There is no other report of any focal neurologic findings. No fever, no chills, no change in medications. Patient was here 2 weeks ago for evaluation of a fall MD complaint: fall Onset (ago): hour(s) Fall from: standing Fall witnessed: no Place fall occurred: home Loss of consciousness: none Prolonged down time: no Symptoms prior to fall: none Context: tripped/slipped Location of injury: head Associated symptoms (after fall): denies Related Data Home Medications Medication Instructions Recorded Confirmed carbidopa ER 50 mg-levodopa 200 mg 1 tab PO QID 90 Days tab 01/13/18 08/16/19 tablet,extended release donepezil 10 mg tablet 20 mg PO BEDTIME 90 Days tab 01/13/18 08/16/19 melatonin 10 mg capsule 10 mg PO BEDTIME PRN 01/13/18 08/16/19 entacapone 200 mg tablet 200 mg PO QID 11/25/18 08/16/19 selegiline HCl 5 mg capsule 5 mg PO BID 07/16/19 08/16/19 Ginko Biloba 120 mg PO DAILY 08/16/19 08/16/19 magnesium 500 mg PO BEDTIME 08/16/19 08/16/19 sennosides [senna] 8.6 mg PO BEDTIME 08/16/19 08/16/19 Previous Rx's Medication Instructions Recorded omeprazole 20 mg capsule,delayed 20 mg PO DAILY #90 cap 02/04/19 release pravastatin 20 mg tablet 20 mg PO BEDTIME #90 tab 02/04/19 citalopram 20 mg tablet 20 mg PO QDAY #90 tab 06/11/19 clonazepam 1 mg tablet 1.5 mg PO BID #270 tab 06/11/19 mirtazapine 45 mg tablet 45 mg PO BEDTIME #90 tab 06/11/19 tamsulosin 0.4 mg capsule 0.4 mg PO DAILY #90 cap 07/28/19 levomefolate calcium 15 mg tablet 15 mg PO DAILY #90 tab 07/29/19 propranolol 10 mg tablet 10 mg PO BID #180 tab 08/26/19 Allergies Allergy/AdvReac Type Severity Reaction Status Date / Time No Known Drug Allergies Allergy Verified 07/16/19 14:00 Review of Systems Constitutional Constitutional: Denies chills, Denies fatigue, Denies fever(s), Denies frequent falls, Denies lethargy and Denies weakness Eyes Eyes: Denies change in vision, Denies eye discharge, Denies irritation and Denies loss of vision ENT Ears, Nose, Mouth, and Throat: Denies change in voice, Denies dizziness, Denies neck pain, Denies sore throat and Denies throat swelling Cardiovascular Cardiovascular: Denies chest pain, Denies irregular heart rhythm, Denies lightheadedness, Denies palpitations, Denies dyspnea, Denies dyspnea on exertion and Denies orthopnea Respiratory Respiratory: Denies cough, Denies dyspnea, Denies dyspnea on exertion and Denies wheezing Gastrointestinal Gastrointestinal: Denies abdominal pain, Denies change in bowel habits, Denies diarrhea, Denies nausea and Denies vomiting Musculoskeletal Musculoskeletal: Denies neck pain and Denies numbness Integumentary/Breasts Skin/Breast: Denies pruritus, Denies erythema, Denies rash and Denies wounds Neurologic Neurologic: Reports abnormal speech, Denies behavioral changes, Denies confusion, Denies dizziness, Denies frequent falls, Denies loss of vision, Denies numbness and Denies weakness Comments: Trouble finding words Psychiatric Psychiatric: Denies anxiety, Denies behavioral changes, Denies confusion, Denies depression, Denies homicidal ideation and Denies suicidal ideation Endocrine Endocrine: Denies fatigue, Denies flushing and Denies palpitations Hematologic/Lymphatic Hematologic/Lymphatic: Denies easy bruising Allergic/Immunologic Allergic/Immunologic: Denies urticaria, Denies throat swelling and Denies wheezing Patient History Medical History Anxiety (Chronic) Arthritis (Chronic) Bilateral thigh pain (Chronic) Chicken pox (Resolved) Chickenpox (Resolved Unknown) Chronic back pain (Chronic 1965) Chronic fatigue (Chronic 2014) Colon polyps (Resolved 2009) Coronary artery disease (Chronic) Depression (Chronic 2015) Erectile dysfunction (Chronic) Foot pain (Chronic ~2017) Hiatal hernia (Chronic) Hiatal hernia (Chronic) Hypercholesterolemia (Chronic) Hypertension (Chronic) Mumps (Resolved Unknown) Mumps (Resolved) Panic attacks (Chronic) Parkinson's disease (Chronic 2015) Proximal muscle weakness (Chronic) Surgical History Anesthesia (Resolved) History of colonoscopy with polypectomy (Resolved 11/19/17) History of colonoscopy with polypectomy (Resolved 2009) History of tonsillectomy and adenoidectomy (Resolved) S/P CABG (coronary artery bypass graft) (Resolved 06/2003) Status post coronary artery bypass graft (Resolved) Status post tonsillectomy and adenoidectomy (Resolved) Family History Father CAD (coronary artery disease) CVA (cerebral vascular accident) Hypertension Diabetes mellitus Heart attack Mother Hypertension Grandmother Diabetes mellitus Grandfather No problems noted. Brother No problems noted. Sister No problems noted. Social History household members: spouse Smoking Status: Never smoker Smoking Status: Never smoker alcohol intake frequency: 0-2 drinks per day Substance Use Type: does not use Exam Narrative Exam Narrative: GENERAL 79 year old patient appears stated age. Well-nourished, well-developed patient, in mild distress. HEAD: Atraumatic. Normocephalic. EYES: Pupils equal round and reactive. Extraocular motions intact. No scleral icterus. No injection or drainage. ENT: Nose without bleeding, purulent drainage. Throat without erythema, tonsillar hypertrophy or exudate. Airway patent. NECK: Trachea midline. Non tender CARDIOVASCULAR: Regular rate and rhythm without murmurs, gallops, or rubs. RESPIRATORY: Clear to auscultation. Breath sounds equal bilaterally. No wheezes, rales, or rhonchi. GASTROINTESTINAL: Abdomen soft, non-tender, nondistended. EXTREMITIES: No edema or joint tenderness. BACK: Nontender without deformity or crepitance. No flank tenderness. NEURO: AOx3. SKIN: No rash or erythema of visible areas Initial Vital Signs Initial Vital Signs: Vital Signs Temperature 98.8 F 08/27/19 13:35 Pulse Rate 66 08/27/19 13:35 Respiratory Rate 18 08/27/19 13:35 Blood Pressure 165/70 H 08/27/19 13:35 Pulse Oximetry 97 08/27/19 13:35 Scores NIH Stroke Scale Level of Conciousness: Alert, keenly responsive Ask month/age: Answers both questions correctly. Open/close eyes, close hand: Performs both tasks correctly Best gaze horizontal: Normal Visual jaquez: Partial hemianopia Facial palsy: Normal symetrical movement Left arm drift: No drift for full 10 sec Right arm drift: No drift for full 10 sec Left leg drift: No drift for full 10 sec Right leg drift: Drifts down, not to bed Limb ataxia: Absent Sensory on face/arms/legs: Mild to moderate sensory loss, can tell touch Best language: No aphasia, normal Dysarthria: Normal Extinction or inattention: No abnormality Total NIH Stroke scale score: 3 Course Orders Ordered: ED Orders 08/27/19 13:11 CT head/brain wo con Stat 08/27/19 13:49 EKG-12 Lead Routine 08/27/19 14:06 Urine Drug Screen, Rapid Stat EKG-12 Lead Stat 08/27/19 14:19 Basic Metabolic Panel Stat Complete Blood Count AUTO DIFF Stat Partial Thromboplastin Time Stat Prothrombin Time INR Stat Sodium Chloride (Normal Saline 0.9%) 1,000 mls @ 150 mls/hr IV CONT PHANI Last Admin: 08/27/19 14:20 Dose: 150 mls/hr Documented by: BSBONI Discontinued Medications Aspirin (Aspirin Chew) 324 mg PO NOW ONE Stop: 08/27/19 15:24 Last Admin: 08/27/19 16:01 Dose: 324 mg Documented by: DEBBIE Consultations Consultation #1: Dr. Liang happy to accept Vital Signs Vital signs: Vital Signs - 8 hr 08/27/19 13:35 08/27/19 13:45 08/27/19 14:00 Temperature 98.8 F Pulse Rate 66 63 62 Respiratory Rate 18 19 15 Blood Pressure 165/70 H Pulse Oximetry 97 94 98 08/27/19 14:20 08/27/19 14:30 08/27/19 15:00 Temperature Pulse Rate 61 59 L 61 Respiratory Rate 16 11 L 13 Blood Pressure 156/70 H 144/70 H 144/68 H Pulse Oximetry 97 98 98 08/27/19 15:30 08/27/19 16:00 Temperature Pulse Rate 60 60 Respiratory Rate 12 14 Blood Pressure 150/70 H 134/68 Pulse Oximetry 98 96 - Fall Lab Data Result diagrams: 08/27/19 14:19 08/27/19 14:19 Labs: Lab Results 08/27/19 08/27/19 08/27/19 Range/Units 14:19 14:19 14:19 WBC 9.4 (4.5-11.0) X10^3/uL RBC 4.25 L (4.5-5.9) X10^6/uL Hgb 13.5 (13.5-17.5) g/dL Hct 39.8 L (41-53) % MCV 93.6 (80-100) fL MCH 31.7 (26-34) PG MCHC 33.8 (30-36) % RDW 13.1 (11.6-14.8) % Plt Count 146 L (150-400) X10^3/uL Neut % (Auto) 77.7 H (50-75) % Lymph % (Auto) 14.2 L (25-40) % [place] % (Auto) 6.6 (3-14) % Eos % (Auto) 0.6 L (2-4) % Baso % (Auto) 0.9 (0-2) % Neut # (Auto) 7300 H (5995-4189) /uL Lymph # (Auto) 1300 (1537-4116) /uL [place] # (Auto) 600 (0-900) /uL Eos # (Auto) 100 (0-450) /uL Baso # (Auto) 100 (0-100) /uL PT 11.0 (10.1-12.7) SECONDS INR 1.0 (0.9-1.3) APTT 23 L (26.4-36.2) SECONDS Sodium 137 (137-145) mmol/L Potassium 4.3 (3.4-5.1) mmol/L Chloride 106 (98-107) mmol/L Carbon Dioxide 27 (22-32) mmol/L BUN 26 H (9-20) mg/dL Creatinine 1.12 (0.66-1.25) mg/dL Estimated GFR > 60.0 (>60) mL/min BUN/Creatinine Ratio 23.2 H (6-22) Glucose 120 H (80-110) mg/dL Calcium 9.7 (8.4-10.2) mg/dL Discharge Plan Departure Patient Disposition: Admitted as Observation Clinical Impression: Stroke Qualifiers: CVA mechanism: unspecified Qualified Code(s): I63.9 - Cerebral infarction, unspecified Referrals: Raoul Salguero MD [Primary Care Provider] -
[2019-08-27] MEDS: SODIUM CHLORIDE 0.9% 1,000 ML 150 ML IV (14:20)
[2019-08-27 14:33] LABS: Add Manual Diff / Slide Review NO; Basophils Absolute Auto 100 /uL (0-100); Basophils Percent Auto 0.9 % (0-2); Eosinophils Absolute Auto 100 /uL (0-450); Eosinophils Percent Auto 0.6 % (2-4); Hematocrit 39.8 % (41-53); Hemoglobin 13.5 g/dL (13.5-17.5); Lymphocytes Absolute Auto 1300 /uL (1100-4500); Lymphocytes Percent Auto 14.2 % (25-40); Mean Corpuscular HGB Conc 33.8 % (30-36); Mean Corpuscular Hemoglobin 31.7 PG (26-34); Mean Corpuscular Volume 93.6 fL (80-100); Monocytes Absolute Auto 600 /uL (0-900); Monocytes Percent Auto 6.6 % (3-14); Neutrophils Absolute Auto 7300 /uL (1500-7000); Neutrophils Percent Auto 77.7 % (50-75); Platelet Count 146 X10^3/uL (150-400); Red Blood Cell Count 4.25 X10^6/uL (4.5-5.9); Red Cell Distribution Width 13.1 % (11.6-14.8); White Blood Cell Count 9.4 X10^3/uL (4.5-11.0)
[2019-08-27 14:47] LABS: PTT Partial Thromboplastin Tim 23 SECONDS (26.4-36.2)
[2019-08-27 14:52] LABS: BUN Creatinine Ratio 23.2 (6-22); Blood Urea Nitrogen 26 mg/dL (9-20); Calcium 9.7 mg/dL (8.4-10.2); Carbon Dioxide 27 mmol/L (22-32); Chloride 106 mmol/L (98-107); Estimated Glomerular Filt Rate > 60.0 mL/min (>60); Glucose 120 mg/dL (80-110); HEMOLYSIS 19 (0-50); Potassium 4.3 mmol/L (3.4-5.1); Sodium 137 mmol/L (137-145)
[2019-08-27] MEDS: ASPIRIN 81 MG CHEW TAB 324 MG PO (16:01)
[2019-08-27 17:32] LABS: COVID19 -Nasal RAPID Negative (Negative)
[2019-08-27] MEDS: CARBIDOPA-LEVODOPA ER 50/200 TABLET 1 EACH PO ×2 (21:08→23:33)
[2019-08-27] MEDS: DONEPEZIL 5 MG TABLET 20 MG PO (21:09)
[2019-08-27] MEDS: clonazePAM 0.5 MG TABLET 1.5 MG PO (21:09)
[2019-08-27] MEDS: ENTACAPONE 200 MG TABLET PO ×2 (21:12→23:34)
[2019-08-27] MEDS: MIRTAZAPINE 15 MG TABLET 45 MG PO (21:12)
[2019-08-27] MEDS: PROPRANOLOL 10 MG TABLET PO (21:13)
[2019-08-27] MEDS: PRAVASTATIN 20 MG TABLET PO (21:13)
[2019-08-27] MEDS: SELEGILINE 5 MG CAPSULE PO (21:14)
[2019-08-27] MEDS: SENNOSIDES 8.6 MG TABLET PO (21:14)
[2019-08-27 22:46] LABS: Troponin I < 0.012 ng/mL (0.01-0.034)
[2019-08-27 23:21] LABS: UR Morphine/Opiate cutoff 300 Negative (Negative); Ur Creatinine Normal (Normal); Ur Specific Gravity Normal (Normal); Urine Amphetamines Negative (Negative); Urine Barbiturates Negative (Negative); Urine Benzodiazepines Negative (Negative); Urine Cocaine Negative (Negative); Urine MDMA Negative (Negative); Urine Methadone Negative (Negative); Urine Methamphetamines Negative (Negative); Urine Oxycodone Negative (Negative); Urine Phencyclidine Negative (Negative); Urine Tetrahydrocannabinol Negative (Negative); Urine Tricyclic Antidepressant Negative (Negative); Urine pH Normal (Normal)
--- NOTE | 2019-08-27 23:30 | PC.NURSE ---
Evening Shift/Admit Note- Patient arrived to room via stretcher from ER at 1745. Slider board used to transfer to bed. Admit questions done, medications reviewed, physical assessmnet completed, and skin check done. Oriented patient to bed and bed controls, room, lights, batheroom, phone, menu, and call morrell/tv remote. Safety measures in place. Bed alarm activated. Call morrell and phone within reach. will continue to monitor.
[2019-08-27] MEDS: MELATONIN 3 MG TABLET 9 MG PO (23:34)
--- NOTE | 2019-08-27 23:37 | P.HP_ITS ---
History of Present Illness History of Present Illness Date Patient Seen: 08/27/19 Time Patient Seen: 22:45 Chief complaint: fell Narrative: Binu Dominguez is a 79-year-old male with parkinsonian syndrome, hyperlipidemia, and coronary artery disease fell at home today. His is in the room and gave part of the history. He apparently was confused, had difficulties word- finding, the patient stated that he felt like he blacked out and when he came to was not able to see initially. stated that he skipped his carbidopa levodopa late afternoon and evening doses. Patient denies fevers sweats or chills, he did mention a very temporary loss of vision, he was noted to be word finding, denies chest pain he states he has chronic shortness of breath ever sin ce the bypass surgery approximately 20 years ago he has urinary frequency, and has cold feet all the time. He does state that he has had easy bruising which is also chronic. The patient has a history of a 3 way bypass approximately 20 years ago followed by stents the following year and sees Dr. Naranjo at [facility] in his cardiology group. His neurologist is Dr. Garg at [facility]. In the emergency department they did a head CT which was negative for any acute process. Current vital signs are temperature of 97.8?, blood pressure 113/60, heart rate of 55, respiratory rate of 16, oxygen saturation 97% on room air, he is 70.3 kilos with a BMI of 25%. He was able to pass a nursing swallow evaluation and is eating normal meals and drinking fluids. WBC is 9.4, RBC 4.25, hemoglobin 13.5, hematocrit 39.8, platelet count 146, sodium is 137, potassium 4.3, chloride 106, CO2 27, BUN 26, creatinine 1.12, GFR is greater than 60, calcium is 9.7, and troponin 0.012, COVID-19 negative and urine toxicology was negative. Patient History Medical History Anxiety (Chronic) Arthritis (Chronic) Bilateral thigh pain (Chronic) Chicken pox (Resolved) Chickenpox (Resolved Unknown) Chronic back pain (Chronic 1965) Chronic fatigue (Chronic 2013) Colon polyps (Resolved 2009) Coronary artery disease (Chronic) Depression (Chronic 2014) Erectile dysfunction (Chronic) Foot pain (Chronic ~2017) Hiatal hernia (Chronic) Hiatal hernia (Chronic) Hypercholesterolemia (Chronic) Hypertension (Chronic) Mumps (Resolved Unknown) Mumps (Resolved) Panic attacks (Chronic) Parkinson's disease (Chronic 2015) Proximal muscle weakness (Chronic) Surgical History Anesthesia (Resolved) History of colonoscopy with polypectomy (Resolved 11/19/17) History of colonoscopy with polypectomy (Resolved 2009) History of tonsillectomy and adenoidectomy (Resolved) S/P CABG (coronary artery bypass graft) (Resolved 06/2003) Status post coronary artery bypass graft (Resolved) Status post tonsillectomy and adenoidectomy (Resolved) Family & Social History Family History (Updated 08/27/19 @ 23:46 by BULMARO English) Father CAD (coronary artery disease) CVA (cerebral vascular accident) Hypertension Diabetes mellitus Heart attack Brain cancer Mother Hypertension Dementia Grandmother Diabetes mellitus Grandfather No problems noted. Brother No problems noted. Sister No problems noted. Social History: household members spouse Prior Living Arrangements House Safety & Behavioral: Feels Safe in Current Yes Environment Been Physically Hurt or No Threatened By a Person Suicidal Ideation Description None Suicide Plan Description No Plan Tobacco & Substance use: Smoking Status Never smoker alcohol intake former alcohol intake frequency 0-2 drinks per day Substance Use Type does not use Meds Home Medications and Allergies Home Medications Medication Instructions Recorded Confirmed Type carbidopa ER 50 mg-levodopa 200 mg 1 tab PO QID 90 Days tab 01/13/18 08/27/19 History tablet,extended release donepezil 10 mg tablet 20 mg PO BEDTIME 90 Days tab 01/13/18 08/27/19 History melatonin 10 mg capsule 10 mg PO BEDTIME PRN 01/13/18 08/27/19 History entacapone 200 mg tablet 200 mg PO QID 11/25/18 08/27/19 History omeprazole 20 mg capsule,delayed 20 mg PO DAILY #90 cap 02/04/19 08/27/19 Rx release pravastatin 20 mg tablet 20 mg PO BEDTIME #90 tab 02/04/19 08/27/19 Rx citalopram 20 mg tablet 20 mg PO QDAY #90 tab 06/11/19 08/27/19 Rx clonazepam 1 mg tablet 1.5 mg PO BID #270 tab 06/11/19 08/27/19 Rx mirtazapine 45 mg tablet 45 mg PO BEDTIME #90 tab 06/11/19 08/27/19 Rx selegiline HCl 5 mg capsule 5 mg PO BID 07/16/19 08/27/19 History tamsulosin 0.4 mg capsule 0.4 mg PO DAILY #90 cap 07/28/19 08/27/19 Rx levomefolate calcium 15 mg tablet 15 mg PO DAILY #90 tab 07/29/19 08/27/19 Rx Ginko Biloba 120 mg PO DAILY 08/16/19 08/27/19 History magnesium 500 mg PO BEDTIME 08/16/19 08/27/19 History sennosides [senna] 8.6 mg PO BEDTIME 08/16/19 08/27/19 History propranolol 10 mg tablet 10 mg PO BID #180 tab 08/26/19 08/27/19 Rx Allergies Allergy/AdvReac Type Severity Reaction Status Date / Time No Known Drug Allergies Allergy Verified 07/16/19 14:00 Review of Systems Review of Systems ROS: Yes All systems reviewed with the patient and are negative except as otherwise documented Exam Vital Signs (past 8 hours): - 08/27/19 16:00 08/27/19 17:45 08/27/19 22:21 Temperature 98.4 F 98.2 F Pulse Rate 60 61 61 Respiratory Rate 14 20 16 Blood Pressure 134/68 148/72 H 103/52 L Pulse Oximetry 96 96 96 08/27/19 23:31 Temperature 97.8 F Pulse Rate 55 L Respiratory Rate 16 Blood Pressure 113/60 Pulse Oximetry 97 Oxygen Delivery Method Room Air Oxygen Flow Rate 0 Narrative Exam Narrative: Gen: Alert, oriented, well-developed 79 y.o. male, is very pale HEENT: normocephalic, atraumatic, conjunctiva clear, sclera non-icteric, oral mucosa pink and moist Neck: supple, full ROM, no JVD, trachea is midline Resp: Lungs CTA, non-labored breathing CV: RRR, no murmur or rubs Abd: soft, non-tender, normoactive BTs Skin: no lesions or rashes, dry and intact Neuro: Somewhat delayed in responding. Alert and oriented X 4 w/no focal deficits. Speech clear and coherent. Extremities: moves all 4 extremities, is ambulatory, negative Maame?s sign Psyche: normal mood and affect. Objective Labs Result Diagrams: 08/27/19 14:19 08/27/19 14:19 Labs: Laboratory Results - last 24 hr 08/27/19 08/27/19 08/27/19 14:19 14:19 14:19 WBC 9.4 RBC 4.25 L Hgb 13.5 Hct 39.8 L MCV 93.6 MCH 31.7 MCHC 33.8 RDW 13.1 Plt Count 146 L Neut % (Auto) 77.7 H Lymph % (Auto) 14.2 L [place] % (Auto) 6.6 Eos % (Auto) 0.6 L Baso % (Auto) 0.9 Neut # (Auto) 7300 H Lymph # (Auto) 1300 [place] # (Auto) 600 Eos # (Auto) 100 Baso # (Auto) 100 PT 11.0 INR 1.0 APTT 23 L Sodium 137 Potassium 4.3 Chloride 106 Carbon Dioxide 27 BUN 26 H Creatinine 1.12 Estimated GFR > 60.0 BUN/Creatinine Ratio 23.2 H Glucose 120 H Calcium 9.7 Troponin I U Opiates 300ng/mL cut Ur Oxycodone Screen Urine Methadone Screen Ur Barbiturates Screen U Tricyclic Antidepress Ur Phencyclidine Scrn Ur Amphetamines Screen U Methamphetamines Scrn Ur MDMA Scrn (Ecstasy) U Benzodiazepines Scrn Urine Cocaine Screen U Marijuana (THC) Screen COVID-19 PCR 08/27/19 08/27/19 08/27/19 16:31 22:16 23:14 WBC RBC Hgb Hct MCV MCH MCHC RDW Plt Count Neut % (Auto) Lymph % (Auto) [place] % (Auto) Eos % (Auto) Baso % (Auto) Neut # (Auto) Lymph # (Auto) [place] # (Auto) Eos # (Auto) Baso # (Auto) PT INR APTT Sodium Potassium Chloride Carbon Dioxide BUN Creatinine Estimated GFR BUN/Creatinine Ratio Glucose Calcium Troponin I < 0.012 U Opiates 300ng/mL cut Negative Ur Oxycodone Screen Negative Urine Methadone Screen Negative Ur Barbiturates Screen Negative U Tricyclic Antidepress Negative Ur Phencyclidine Scrn Negative Ur Amphetamines Screen Negative U Methamphetamines Scrn Negative Ur MDMA Scrn (Ecstasy) Negative U Benzodiazepines Scrn Negative Urine Cocaine Screen Negative U Marijuana (THC) Screen Negative COVID-19 PCR Negative Assessment & Plan Assessment & Plan narrative: Binu Dominguez will be observed overnight and undergo an MRI and echocardiogram on 08/27 for further evaluation of a possible CVA or TIA. Syncopal episode concerning for for a TIA versus CVA, acute, present on admission -patient will undergo an MRI of the head -echocardiogram in the morning -Neuro checks q.4 hours -patient passed an initial nursing swallow evaluation -PT and OT evaluate and treat tomorrow Parkinson's disease, chronic, present on admission -continue home dose of carbidopa levodopa 50/200 1 tab at 9:00 a.m., 1300, 1700, and 2200 -continue home dose of entacapone 200 mg taken with his carbidopa levodopa -continue home dose of selgiline 5 mg po bid CAD, chronic -patient underwent a 3 vessel bypass approximately 20 years ago and subsequent stent placement in 3 vessels a year later -continue home dose of propanolol 10 mg p.o. b.i.d. Hyperlipidemia, chronic -continue pravastatin 20 mg p.o. at bedtime Neurogenic bladder -Continue home dose of tamsulosin 0.4 mg po daily Depression and anxiety, chronic -continue home dose of mirtazapine 45 mg p.o. at bedtime -Continue home dose of levomefolate calcium 15 po daily -Continue home dose of citalopram 20 mg po daily -Continue clonazapam 1 mg po bid Insomnia, chronic Continue home dose of melatonin 10 mg, auto subbed to 9 mg at bedtime Neurocognitive condition, not specified -Continue home dose of donepezil 10 mg po at bedtime Consults: none Patient is observation status as his stay is not likely to exceed 2 midnights. FEN: saline lock, low sodium diet , BMP in the am. VTE prophylaxis: Bilateral SCDs Dispo: likely discharged to home Code Status: Full Code as discussed with patient COVID-19 COVID-19 status: Negative
[2019-08-28 04:04] LABS: Add Manual Diff / Slide Review NO; Basophils Absolute Auto 100 /uL (0-100); Basophils Percent Auto 0.8 % (0-2); Eosinophils Absolute Auto 100 /uL (0-450); Eosinophils Percent Auto 1.2 % (2-4); Hematocrit 37.6 % (41-53); Hemoglobin 12.7 g/dL (13.5-17.5); Lymphocytes Absolute Auto 1700 /uL (1100-4500); Lymphocytes Percent Auto 20.1 % (25-40); Mean Corpuscular HGB Conc 33.8 % (30-36); Mean Corpuscular Hemoglobin 31.5 PG (26-34); Mean Corpuscular Volume 92.9 fL (80-100); Monocytes Absolute Auto 600 /uL (0-900); Monocytes Percent Auto 7.1 % (3-14); Neutrophils Absolute Auto 5900 /uL (1500-7000); Neutrophils Percent Auto 70.8 % (50-75); Platelet Count 140 X10^3/uL (150-400); Red Blood Cell Count 4.05 X10^6/uL (4.5-5.9); Red Cell Distribution Width 13.3 % (11.6-14.8); White Blood Cell Count 8.3 X10^3/uL (4.5-11.0)
[2019-08-28 04:10] LABS: BUN Creatinine Ratio 20.2 (6-22); Blood Urea Nitrogen 22 mg/dL (9-20); Calcium 9.4 mg/dL (8.4-10.2); Carbon Dioxide 30 mmol/L (22-32); Chloride 107 mmol/L (98-107); Cholesterol 148 mg/dL (140-199); Estimated Glomerular Filt Rate > 60.0 mL/min (>60); Glucose 96 mg/dL (80-110); HDL Cholesterol 41 mg/dL (40-60); HEMOLYSIS < 15 (0-50); LDL Cholesterol Calculated 84 mg/dL (<100); Magnesium 2.2 mg/dL (1.6-2.3); Potassium 4.4 mmol/L (3.4-5.1); Sodium 138 mmol/L (137-145); Triglycerides 117 mg/dL (35-150)
[2019-08-28 04:21] LABS: Troponin I < 0.012 ng/mL (0.01-0.034)
[2019-08-28 04:47] LABS: Thyroid Stimulating Hormone 1.19 uIU/mL (0.47-4.68)
[2019-08-28] MEDS: PANTOPRAZOLE 20 MG TABLET PO (05:08)
[2019-08-28 05:20] VITALS: BP 153/74; PULSE 66; RESP 16; TEMP 36.6; O2SAT 98
[2019-08-28 08:00] VITALS: BP 147/68; PULSE 61; RESP 16; TEMP 36.8; O2SAT 96
[2019-08-28] MEDS: CARBIDOPA-LEVODOPA ER 50/200 TABLET 1 EACH PO ×4 (09:10→21:20)
[2019-08-28] MEDS: PROPRANOLOL 10 MG TABLET PO (09:10)
[2019-08-28] MEDS: ENTACAPONE 200 MG TABLET PO ×4 (09:11→21:20)
[2019-08-28] MEDS: SELEGILINE 5 MG CAPSULE PO ×2 (09:11→21:10)
[2019-08-28] MEDS: clonazePAM 0.5 MG TABLET 1.5 MG PO ×2 (09:15→21:08)
[2019-08-28] MEDS: CITALOPRAM 20 MG TABLET PO (09:15)
[2019-08-28] MEDS: TAMSULOSIN 0.4 MG CAPSULE PO (09:15)
[2019-08-28] MEDS: ACETAMINOPHEN 325 MG TABLET 650 MG PO (09:16)
--- NOTE | 2019-08-28 09:34 | PC.NURSE ---
Day shift: Pt off unit for MRI.
--- NOTE | 2019-08-28 09:36 | DI.MRI.S_ITS ---
PROCEDURE: MR STROKE Pre- and post-contrast brain MRI, non-contrast brain MR angiogram, pre- and postcontrast neck MR angiogram INDICATIONS: Syncopal episode, confusion, visual changes TECHNIQUE: Brain: Noncontrast axial T1 spin echo, axial T2 fast spin echo, sagittal and axial FLAIR, coronal T2 fast spin echo, axial gradient echo, axial diffusion and ADC through the brain. After the administration of contrast, axial 3D VIBE of the cranial vasculature and brain. Brain MRA: Non-contrast 3-D time of flight MR angiogram, with multiple unfrafn-kfrkvvfbo-dhrsdrzvnt (MIP) reformats performed. Neck MRA: Axial and sagittal TruFISP through the neck. Coronal dynamic MR angiogram during administration of contrast in the arterial and venous phases, with 3-dimenstional mwwvdgg-epuklotcq-hscfvmsglc (MIP) reformats constructed from subtraction images. COMPARISON: [facility], CT, CT HEAD/BRAIN WO CON, 08/27/2019, 13:13. FINDINGS: Image quality: Diagnostic. BRAIN: CSF spaces: Ventricles are normal in size and shape. Basal cisterns are patent. No extra-axial fluid collections. Brain: No intracranial bleeds or mass effects. Colmenares-white matter interface is normal. Scattered areas of increased flair signal are identified within the deep white matter and periventricular white matter of the supratentorial brain. Prominent Virchow Luis Eduardo spaces of the bilateral basal ganglia are present. No abnormal enhancement of the brain is appreciated. Diffusion weighted images show no acute ischemic insults. Brainstem appears normal. Normal intravascular flow voids are present. No abnormal intracranial enhancement. Skull and face: Calvarial marrow signal is normal. Orbits appear normal. Sinuses: Sinuses and mastoids are clear. BRAIN MR ANGIOGRAM: Anterior circulation: Intracranial internal carotid arteries are normal in size and enhancement. The flow within the paired anterior cerebral arteries is normal and symmetric. The flow within the middle cerebral arteries is normal and symmetric. The anterior communicating artery is seen. No stenoses, occlusions, or aneurysms. Posterior circulation: The visualized portions of the vertebral arteries demonstrate normal caliber, and join to form a normal appearing basilar artery. The flow within the posterior cerebral arteries is normal and symmetric. No stenoses, occlusions, or aneurysms. NECK MR ANGIOGRAM: Carotids: Great vessels demonstrate a conventional anatomy as they arise from the aortic arch. The origins of the common carotid arteries appear patent. The calibers and courses of both common carotid arteries are normal. There is mild atherosclerotic irregularity evident involving the bilateral carotid bulbs (left greater than right) with approximately 10% narrowing on the right and 30-40% narrowing on the left. Posterior circulation: The origins of the vertebral arteries appear patent. More superior portions of both vertebral arteries demonstrate normal course and caliber, and join to form a normal appearing basilar artery. Miscellaneous: Subclavian arteries appear patent. Pre-contrast images through the neck show no soft tissue abnormalities. IMPRESSION: BRAIN MRI: 1. No acute intracranial hemorrhage or ischemia. 2. Moderate chronic small vessel ischemic changes and parenchymal volume loss. 3. No abnormal parenchymal enhancement. BRAIN MR ANGIOGRAM: The major intracranial arteries are widely patent without significant atherosclerosis, high grade narrowing, occlusion, or aneurysm. NECK MR ANGIOGRAM: 1. Mild atherosclerosis of the bilateral carotid bulbs (left greater than right). 2. Unremarkable bilateral vertebral arteries. Dictated by: Clay Wayne M.D. on 08/28/2019 at 9:41 Approved by: Clay Wayne M.D. on 08/28/2019 at 9:48
--- NOTE | 2019-08-28 09:57 | DI.ECHO.S_ITS ---
Echocardiogram Report + + :Name: LUCAS MUNIZ Study Date: 08/28/2019 Height: 66 in : :Hospital Weight: 155 lb : : Gender: Male BSA: 1.8 m2 : :: 1940 Age: 79 yrs BP: 153/74 mmHg: :Reason For Study: SYNOCPE : :Ordering Physician: [place] : :Hospitalist Performed By: Nohemi Ortez : :Referring: ELISABETH MADDOX : + + Interpretation Summary 1) Normal left ventricular size with low normal systolic function (EF 50-55%). 2) The basal to mid inferolateral wall and the entire inferoseptum are hypokinetic. Basal to mid inferior wall is akinetic. 3) Normal right ventricular size with mildly reduced function. 4) No significant valvular abnormalities. 5) Hypertension present during the study (BP 153/74mmHg). 6) Compared to the Echo done 12/20/2013, the wall motion abnormalities described are more obvious on this study. Procedure: A two-dimensional transthoracic echocardiogram with color flow and Doppler was performed. The study quality was technically adequate. Comparison is made with the echocardiogram of 12/20/2013. The patient was in sinus bradycardia with heart rates between 57-60 bpm during the exam. Left Ventricle: The left ventricle is normal in size. Left ventricular wall thickness is borderline increased. The ejection fraction is estimated to be 50-55%. The basal to mid inferolateral wall and the entire inferoseptum are hypokinetic. Basal to mid inferior wall is akinetic. Diastolic parameters suggest probable normal left ventricular diastolic function and normal filling pressures. Right Ventricle: The right ventricle is normal size. Right ventricular systolic function is mildly reduced. Atria: Both atria are normal in size. There is no Doppler evidence for an interatrial shunt. Mitral Valve: The mitral valve is normal in structure and function. There is a flat closure plane of the the mitral valve leaflets. There is trace mitral regurgitation. Aortic Valve: The aortic valve is trileaflet. The aortic valve opens well. There is no aortic valve stenosis. No aortic regurgitation is present. Tricuspid Valve: The tricuspid valve is normal in structure and function. There is trace tricuspid regurgitation. Right ventricular systolic pressure is estimated to be 22 mmHg plus the clinically estimated CVP which cannot be estimated on this exam. Pulmonic Valve: The pulmonic valve is normal in structure and function. There is mild pulmonic regurgitation. Great Vessels: The aortic root is normal size. The ascending aorta is at the upper limits of normal in size. The inferior vena cava was not well visualized. Pericardium/ Pleura There is no pericardial effusion. There is no pleural effusion. MMode/2D Measurements & Calculations LVIDd: 5.4 cm LVOT diam: 2.3 cm LVIDs: 3.8 cm Ao root diam: 3.7 cm FS: 29.7 % asc Aorta Diam: 3.9 cm EPSS: 0.98 cm Ao Arch Diam (Prox Trans): 3.4 cm IVSd: 1.1 cm LVPWd: 1.0 cm LV graham. diameter/BSA (cm/m^2): 3.0 LV sys. diameter/BSA (cm/m^2): 2.1 LA A2 area: 16.2 cm2 RA long axis: 4.3 cm LA A4 area: 15.3 cm2 RA area: 14.8 cm2 LA length (vol): 4.7 cm RA vol: 43.1 ml LA vol: 44.2 ml RA : 24.0 ml/m2 LA vol index: 24.6 ml/m2 IVC diam: 1.3 cm RVD1 (basal): 3.3 cm TAPSE: 1.5 cm Doppler Measurements & Calculations Ao V2 max: 99.2 cm/sec LVOT Max Ramiro: 71.6 cm/sec Ao V2 mean: 70.6 cm/sec LV V1 max P.1 mmHg Ao max P.9 mmHg LV V1 VTI: 16.1 cm Ao mean P.2 mmHg YAMILETH(I,D): 3.1 cm2 Ao V2 VTI: 21.3 cm YAMILETH(V,D): 3.0 cm2 sev ratio: 0.75 YAMILETH indexed to BSA (cm^2/m^2): 1.7 MV E max ramiro: 39.5 cm/sec TR max ramiro: 238.2 cm/sec MV A max ramiro: 59.9 cm/sec TR max P.7 mmHg MV E/A: 0.66 PA V2 max: 62.3 cm/sec Med Peak E' Ramiro: 5.5 cm/sec PA V2 mean: 40.6 cm/sec E/E' med: 7.2 PA mean P.76 mmHg Lat Peak E' Ramiro: 8.6 cm/sec PA pr(Accel): 34.5 mmHg E/E' lat: 4.6 E/e' average: 5.9 MV dec time: 0.25 sec SV(LVOT): 66.3 ml Reading Physician:01:00 PM
[2019-08-28 11:35] LABS: Troponin I < 0.012 ng/mL (0.01-0.034)
[2019-08-28 12:00] VITALS: BP 144/71; PULSE 55; RESP 16; TEMP 36.6; O2SAT 95
--- NOTE | 2019-08-28 12:27 | PT-IP ANOTE ---
attempted PT eval but pt is out for an MRI; checked back on pt and pt is having echo done.
--- NOTE | 2019-08-28 12:30 | OT.IP.EVAL ---
Past Medical History (Last Reviewed 08/27/19 @ 23:45 by BULMARO English) Anxiety (Chronic) Arthritis (Chronic) Bilateral thigh pain (Chronic) Chicken pox (Resolved) Chickenpox (Resolved Unknown) Chronic back pain (Chronic 1965) Chronic fatigue (Chronic 2014) Colon polyps (Resolved 2009) Coronary artery disease (Chronic) Depression (Chronic 2015) Erectile dysfunction (Chronic) Foot pain (Chronic ~2017) Hiatal hernia (Chronic) Hiatal hernia (Chronic) Hypercholesterolemia (Chronic) Hypertension (Chronic) Mumps (Resolved Unknown) Mumps (Resolved) Panic attacks (Chronic) Parkinson's disease (Chronic 2015) Proximal muscle weakness (Chronic) Surgical History (Last Reviewed 08/27/19 @ 23:45 by BULMARO English) Anesthesia (Resolved) History of colonoscopy with polypectomy (Resolved 11/19/17) History of colonoscopy with polypectomy (Resolved 2009) History of tonsillectomy and adenoidectomy (Resolved) S/P CABG (coronary artery bypass graft) (Resolved 06/2003) Status post coronary artery bypass graft (Resolved) Status post tonsillectomy and adenoidectomy (Resolved) Occupational Therapy Inpatient Evaluation/Re-Eval M1 PT/OT-IP Prior Functional Status Start: 08/28/19 13:06 Freq: NEEDED Status: Active Protocol: Document 08/28/19 13:07 CGR (Rec: 08/28/19 13:23 CGR [email or web address]) Medical Review Prior Functional Status Medical History Reviewed Yes Communication Pt is an effective verbal commuincator. Mobility and Gait Pt used a 2ww for all of his mobility. Activities of Daily Living and IADL's Pt states that he was IND with all ADLs Social History Household Members spouse Living Arrangements House Number of Floors (Floors) Two Floors Number of Stairs To Enter/Railing? 1 step without rail. Pt has spiral stairs to the down stairs but states that he no longer goes down stairs. Home Environment Standard Height Toilet,Walk in Shower Home Equipment Front Wheel Walker,Four Wheel Walker,Hand Held Shower,Grab Bars In Shower Employment Status Retired M2 OT-IP Current Condition Start: 08/28/19 13:06 Freq: Status: Active Protocol: Document 08/28/19 13:07 CGR (Rec: 08/28/19 13:23 CGR [email or web address]) Occupational Therapy Current Condition Current Condition Evaluation Date 08/28/19 Treatment Diagnosis Fall at home Diagnosis Onset Date 08/27/19 M3 OT- IP Subjective and Pain Start: 08/28/19 13:06 Freq: Status: Active Protocol: Document 08/28/19 13:07 CGR (Rec: 08/28/19 13:23 CGR [email or web address]) OT- Subjective Occupational Therapy Visit Type Type Initial Evaluation Visit Start Time 12:09 Visit Stop Time 12:30 Total Visit Minutes 21 Notes Pt's lunch just delivered. OT Pain Assessment Pain When Pain Assessed During Mobility Pain Present Pain Present Pain Reported Location Bilateral Shoulder Intensity 7 Scale Used Numeric (0 - 10) Management Techniques Modification of Treatment, Timing of Activity with Medications M4 OT- IP ADL's Start: 08/28/19 13:06 Freq: Status: Active Protocol: Document 08/28/19 13:07 CGR (Rec: 08/28/19 13:23 CGR [email or web address]) OT [id number] General Evaluation Self-Feeding Ability Independent Comments OT Self-Feeding Comments Pt ate lunch without difficulty OT ADL-Grooming Comments OT Grooming Comments Pt declined OT ADL-Oral Care Comments Oral Care Comments Pt declined OT ADL-Dressing General Eval Lower Body Dressing Ability Independent Areas Needing Assistance Socks Comments OT Dressing Comments seated in chair OT ADL-Toileting General Evaluation Toileting Ability Independent Devices Toileting Assistive Devices Grab Bars OT ADL-Bathing Comments OT Bathing Comments not performed M5 OT- IP IADL's Start: 08/28/19 13:06 Freq: Status: Active Protocol: Document 08/28/19 13:07 CGR (Rec: 08/28/19 13:23 CGR [email or web address]) OT-Instrumental Activities of Daily Living Deficits IADL Deficits Identified No Deficits Home Safety Awareness Awareness of Need for Assistance at Home Good Awareness Ability to Problem Solve Emergency Able to Problem Solve Situations Medication Management Medication Management No Deficits Identified Money Management Money Management No Deficits Identified Meal Preparation Meal Preparation No Deficits Identified Administrator Pesticide Administrator Pesticide No Deficits Identified M6 OT- IP Functional Cognition Start: 08/28/19 13:06 Freq: Status: Active Protocol: Document 08/28/19 13:07 CGR (Rec: 08/28/19 13:23 CGR [email or web address]) Cognitive Factors Limiting Selfcare Function Cognitive Ability Level of Alertness Alert Patient Orientation Name,Age,Birthday,Month,Date, Year,Day of Week,Place, Situation Attention Span Ability Capable of Focused Attention Ability to Follow Commands Able to Follow One Step Commands with Increased Time, Able to Follow One Step Commands with Repetition Cognitive Comments Cognitive Assessment Comments recommend formal cog assessment. OT- Vision and Hearing OT- Hearing Assessment OT- Hearing Assessment WFL OT- Vision Assessment Visual Acuity WFL Visual Attentiveness WFL Occular Pursuits WFL Visual Convergence WFL Vision Assessment Comments Pt states that he probably needs glasses M7 OT- IP Mobility and Balance Start: 08/28/19 13:06 Freq: Status: Active Protocol: Document 08/28/19 13:07 CGR (Rec: 08/28/19 13:23 CGR [email or web address]) OT- Bed Mobility Assessment Rolling Type of Rolling Roll to Right Level of Assistance Independent Supine to Sit Supine to Sit Assist Independent Sit to Supine Sit to Supine Assist Independent Scooting Scooting to Edge of Bed Independent OT-Transfer Assessment Sit to and From Stand Sit to and from Stand Standby Assistance,Contact Guard Assistance Transfers Transfer Ability Standby Assistance,Contact Guard Assistance Technique Transfer Destination Bed,Chair,Toilet Transfer Technique Stand Step Pivot Devices Transfer Assistive Devices Front Wheeled Walker Comments Mobility Comments no gait belt in room. OT- Gait Assessment Gait Gait Assistance Required: Standby Assistance,Contact Guard Assist Assistive Devices Assistive Device Front Wheeled Walker OT- Balance Assessment Sitting Balance and Reactions Static Sitting Balance Ability Good Dynamic Sitting Balance Ability Fair M8 OT- IP Objective Assessments Start: 08/28/19 13:06 Freq: Status: Active Protocol: Document 08/28/19 13:07 CGR (Rec: 08/28/19 13:23 CGR [email or web address]) OT Gross Range of Motion Upper Extremity Range of Motion Assessment Within Functional Limits OT Strength Upper Extremity Strength Assessment Within Functional Limits Comments Strength Comments 4+/5 OT- Coordination Assessment Upper Extremity Finger to Nose Test Within Functional Limits Finger Tapping Test Within Functional Limits OT-Muscle Tone Assessment Muscle Tone WNL Yes OT Sensation Assessment Edema Edema Absent M9 OT- IP Assessment and Plan Start: 08/28/19 13:06 Freq: Status: Active Protocol: Document 08/28/19 13:07 CGR (Rec: 08/28/19 13:23 CGR [email or web address]) OT Summary Assessment and Plan Potential Rehabilitation Potential Excellent Analytic Complexity at Evaluation Low Summary OT Impairments Functional Cognition,Shower Transfers,Activity Tolerance Progress Towards Goals Progressing Toward Goals Assessment Summary Pt presents as a low complexity evaluation s/p fall at home. Pt will benefit from 1-2 more OT sessions for cog assessment and shower. Pt is likely to be safe for d/c home when medically stable. Goals Bathing Goal Independent Shower Transfer Goal Independent Days to Meet Goals 2 Frequency of Treatment Frequency Of Treatment Once a Day Treatment Plan OT Treatment Plan ADL Training,Functional Cognition Training,Patient/ Family Education,Discharge Planning Other Treatment Recommendations and Next shower and cog assessment. Treatment Focus Discharge Recommendations OT Discharge Recommendations Home with Assistance Transportation Needs at Discharge Private Vehicle
--- NOTE | 2019-08-28 13:30 | PT.IIE ---
Surgical History (Last Reviewed 08/27/19 @ 23:45 by BULMARO English) Anesthesia (Resolved) History of colonoscopy with polypectomy (Resolved 11/19/17) History of colonoscopy with polypectomy (Resolved 2009) History of tonsillectomy and adenoidectomy (Resolved) S/P CABG (coronary artery bypass graft) (Resolved 06/2003) Status post coronary artery bypass graft (Resolved) Status post tonsillectomy and adenoidectomy (Resolved) Medical History (Last Reviewed 08/27/19 @ 23:45 by BULMARO English) Anxiety (Chronic) Arthritis (Chronic) Bilateral thigh pain (Chronic) Chicken pox (Resolved) Chickenpox (Resolved Unknown) Chronic back pain (Chronic 1965) Chronic fatigue (Chronic 2013) Colon polyps (Resolved 2009) Coronary artery disease (Chronic) Depression (Chronic 2014) Erectile dysfunction (Chronic) Foot pain (Chronic ~2017) Hiatal hernia (Chronic) Hiatal hernia (Chronic) Hypercholesterolemia (Chronic) Hypertension (Chronic) Mumps (Resolved Unknown) Mumps (Resolved) Panic attacks (Chronic) Parkinson's disease (Chronic 2014) Proximal muscle weakness (Chronic) Physical Therapy Inpatient Evaluation/Re-Eval M1 PT/OT-IP Prior Functional Status Start: 08/28/19 13:06 Freq: NEEDED Status: Active Protocol: Document 08/28/19 13:07 CGR (Rec: 08/28/19 13:23 CGR [email or web address]) Medical Review Prior Functional Status Medical History Reviewed Yes Communication Pt is an effective verbal commuincator. Mobility and Gait Pt used a 2ww for all of his mobility. Activities of Daily Living and IADL's Pt states that he was IND with all ADLs Social History Household Members spouse Living Arrangements House Number of Floors (Floors) Two Floors Number of Stairs To Enter/Railing? 1 step without rail. Pt has spiral stairs to the down stairs but states that he no longer goes down stairs. Home Environment Standard Height Toilet,Walk in Shower Home Equipment Front Wheel Walker,Four Wheel Walker,Hand Held Shower,Grab Bars In Shower Employment Status Retired M1 PT/OT-IP Prior Functional Status Start: 08/28/19 14:47 Freq: NEEDED Status: Active Protocol: Document 08/28/19 13:30 AB (Rec: 08/28/19 15:09 AB [id number]) Medical Review Prior Functional Status Medical History Reviewed Yes Communication able to make needs nown Mobility and Gait pt stated that he is modified independent with all mobilities and ambulation using FWW Activities of Daily Living and IADL's per OT's note:Pt states that he was IND with all ADLs Prior Functional Level (Other details) pt stated that he has had episodes for passing out before and falling ~ 30 times but not as bad as the last one . Social History Household Members spouse Living Arrangements House Number of Floors (Floors) Two Floors Number of Stairs To Enter/Railing? per pt: he does not have any steps to get into the house from the garage and he stays on the main level of the house . Info pt gave to OT: 1 step to enter without rail. Pt has spiral stairs to the down stairs but states that he no longer goes down stairs. Home Environment Standard Height Toilet,Walk in Shower Home Equipment Front Wheel Walker,Four Wheel Walker,Hand Held Shower,Grab Bars In Shower Employment Status Retired Additional Social History Comment has a L side bed cane M2 PT-IP Current Condition Start: 08/28/19 14:47 Freq: NEEDED Status: Active Protocol: Document 08/28/19 13:30 AB (Rec: 08/28/19 15:09 [id number]) Physical Therapy Current Condition Current Condition Evaluation Date 08/28/19 Treatment Diagnosis syncope; PD; difficulty in walking Onset Date 08/27/19 Precautions Other Precautions orthostatic BP; falls M3 PT-IP Subjective Start: 08/28/19 14:47 Freq: NEEDED Status: Active Protocol: Document 08/28/19 13:30 AB (Rec: 08/28/19 15:09 [id number]) Subjective Physical Therapy Visit Type Type Initial Evaluation Visit Start Time 13:30 Visit Stop Time 13:56 Total Visit Minutes 26 Number of CLINICAL MICROBIOLOGIST Visits 0 Physical Therapy Visit Comments Patient Comments pt is agreeable to do PT Therapy Pain Assessment Pain Present Pain Present Denied Pain M4 PT-IP Mobility and Gait Start: 08/28/19 14:47 Freq: NEEDED Status: Active Protocol: Document 08/28/19 13:30 AB (Rec: 08/28/19 15:09 [id number]) PT-Bed Mobility Assessment Supine to Sit Supine to Sit Standby Assistance Sit to Supine Sit to Supine Standby Assistance Scooting Scooting to Edge of Bed Standby Assistance PT-Transfer Assessment Sit to and From Stand Sit to and from Stand Minimal Assistance,1 Person Assistance,Use of Upper Extremities Equipment Transfer Assistive Device Gait Belt,Front Wheeled Walker Orthotic/Prosthetic Devices or Brace: No Comments Mobility Comments BP supine 121/64. pt completed supine to sit SBA and was able to sit on EOB SBA. pt without any complaints. BP checked in sittin/55. checked BP again to confirm: 85/53. nurse informed. pt completed sit to stand from bed min A with increase posterior trunk lean and LE against EOB for support. able to take side steps towards HOB using FWW mod A x 1-2 for repositioning. BP checked again after standin/58. pt laid back to bed SBA. positioned pt in bed. Call light and table placed within reach. BP in supine: 124/65. informed nurse and Dr. Liang regarding decrease in BP during upright activities. Gait Assessment Gait Gait Assistance Required: Moderate Assistance,1 Person Assist,2 Person Assist Distance (Feet) 2 Assistive Devices Assistive Device Gait Belt,Front Wheeled Walker Gait Deviations General Gait Pattern Ataxic,Decreased Stride Length ,Decreased Feet Clearance Factors Limiting Gait Function Factors Limiting Gait Function Decreased Activity Tolerance, Decreased Strength,Limited Range of Motion,Pain,Poor Balance,Poor Safety Awareness Comments Gait Comments able to take side steps using FWW mod A x 1-2 . further ambulation not conducted due to decrease in BP: 82-85/55-53 during sitting PT-Balance Assessment Sitting Balance and Reactions Static Sitting Balance Ability Good Dynamic Sitting Balance Ability Fair Standing Balance and Reactions Static Standing Balance Ability Fair Dynamic Standing Balance Ability Poor Device Used FWW M5 PT-IP Objective Assessments Start: 08/28/19 14:47 Freq: NEEDED Status: Active Protocol: Document 08/28/19 13:30 AB (Rec: 08/28/19 15:09 AB [id number]) Orientation Orientation/Cognition Level of Alertness Alert Orientation Name Language Function Ability Hard of Hearing Safety Awareness Decreased Safety Awareness Memory Description Short Term Impaired Gross Range of Motion Lower Extremity ROM Assessment Within Functional Limits Strength Lower Extremity Strength Assessment Within Functional Limits M6 PT-IP Treatment Start: 08/28/19 14:47 Freq: NEEDED Status: Active Protocol: Document 08/28/19 13:30 AB (Rec: 08/28/19 15:09 AB [id number]) Physical Therapy Treatment Education Education Provided Safety M7 PT-IP Assessment and Plan Start: 08/28/19 14:47 Freq: NEEDED Status: Active Protocol: Document 08/28/19 13:30 AB (Rec: 08/28/19 15:09 AB [id number]) PT Summary Assessment and Plan Potential Rehabilitation Potential Fair Status of Condition at Evaluation Evolving Summary Impairments Pain,ROM,Strength,Balance, Coordination,Sensation,Tone, Cognition,Bed Mobility, Transfers,Gait,Activity Tolerance Assessment Summary pt requiring mod A x 1-2 with sit to stand using FWW. unable to do much activity due to decrease in BP: 82/55. pt has h/o syncope. informed nurse and hospitalist regarding orthostatic BP. d/c plan depending on progress. BP needs to be more stable for pt to be able to do more activity/ambulation and at this time is limting mobility and safety. further assessment is needed to determine safe d/c plan but pt will need 24/7 assist at this time. Goals Bed Mobility Goal Independent Transfer Goal Independent,Front Wheeled Walker Gait Goal Independent,Front Wheel Walker Gait Distance 200 Other Goals up/down 1 steps using FWW SBA Days to Meet Goals 5 Frequency of Treatment Frequency Of Treatment Once a Day Treatment Plan Physical Therapy Treatment Plan Bed Mobility Training,Transfer Training,Gait Training, Therapeutic Exercise,Balance Retraining,Post Op Education, Discharge Planning,Hot or Cold Pack,Neuromuscular Re-ed, Coordination Retraining,Manual Therapy Other Recommendations and Next Treatment ambulation; check orthostatic Focus BP; caregiver training if appropriate Recommendations To Nursing Amount of Assist Needed 2 Person Assist Discharge Recommendations PT Discharge Recommendations Home with 24/7 Assist,Home Health,SNF Rehab Other Discharge Recommendations depending on progress: SNF vs home with 24/7 and HHPT Transportation Needs at Discharge Private Vehicle,Wheelchair/ Cabulance
--- NOTE | 2019-08-28 15:29 | P.PN_ITS ---
Subjective Subjective Date Patient Seen: 08/28/19 Interval history: Patient has had no syncopal episodes today. However when he got up with occupational therapy patient's systolic blood pressure dropped to 82 with seeding. He was lying down and continue to be orthostatic. Patient did re port some dizziness. He does describe episodes of dizziness lightheadedness with standing. He typically will sit down for 5 minutes and symptoms were resolved. He has had no further difficulty with speech. Patient underwent MRI of the brain today for further workup of possible stroke. Exam Vital Signs (past 8 hours): - 08/28/19 08:00 08/28/19 12:00 Temperature 98.3 F 97.9 F Pulse Rate 61 55 L Respiratory Rate 16 16 Blood Pressure 147/68 H 144/71 H Pulse Oximetry 96 95 Oxygen Delivery Method Room Air Oxygen Flow Rate 0 Narrative Exam Narrative: Pleasant gentleman resting comfortably in no obvious distress Lungs: Clear to auscultation Cardiac exam: Regular rate and rhythm normal S1-S2 Chest wall: Midline surgical incision well-healed Abdomen: Soft nontender nondistended Extremities: No edema Objective Labs Result Diagrams: 08/28/19 03:50 08/28/19 03:50 Labs: Laboratory Results - last 24 hr 08/27/19 08/27/19 08/27/19 16:31 22:16 23:14 WBC RBC Hgb Hct MCV MCH MCHC RDW Plt Count Neut % (Auto) Lymph % (Auto) [place] % (Auto) Eos % (Auto) Baso % (Auto) Neut # (Auto) Lymph # (Auto) [place] # (Auto) Eos # (Auto) Baso # (Auto) Sodium Potassium Chloride Carbon Dioxide BUN Creatinine Estimated GFR BUN/Creatinine Ratio Glucose Calcium Magnesium Troponin I < 0.012 Triglycerides Cholesterol LDL Cholesterol, Calc HDL Cholesterol TSH U Opiates 300ng/mL cut Negative Ur Oxycodone Screen Negative Urine Methadone Screen Negative Ur Barbiturates Screen Negative U Tricyclic Antidepress Negative Ur Phencyclidine Scrn Negative Ur Amphetamines Screen Negative U Methamphetamines Scrn Negative Ur MDMA Scrn (Ecstasy) Negative U Benzodiazepines Scrn Negative Urine Cocaine Screen Negative U Marijuana (THC) Screen Negative COVID-19 PCR Negative 08/28/19 08/28/19 08/28/19 03:50 03:50 03:50 WBC 8.3 RBC 4.05 L Hgb 12.7 L Hct 37.6 L MCV 92.9 MCH 31.5 MCHC 33.8 RDW 13.3 Plt Count 140 L Neut % (Auto) 70.8 Lymph % (Auto) 20.1 L [place] % (Auto) 7.1 Eos % (Auto) 1.2 L Baso % (Auto) 0.8 Neut # (Auto) 5900 Lymph # (Auto) 1700 [place] # (Auto) 600 Eos # (Auto) 100 Baso # (Auto) 100 Sodium 138 Potassium 4.4 Chloride 107 Carbon Dioxide 30 BUN 22 H Creatinine 1.09 Estimated GFR > 60.0 BUN/Creatinine Ratio 20.2 Glucose 96 Calcium 9.4 Magnesium 2.2 Troponin I < 0.012 Triglycerides 117 Cholesterol 148 LDL Cholesterol, Calc 84 HDL Cholesterol 41 TSH U Opiates 300ng/mL cut Ur Oxycodone Screen Urine Methadone Screen Ur Barbiturates Screen U Tricyclic Antidepress Ur Phencyclidine Scrn Ur Amphetamines Screen U Methamphetamines Scrn Ur MDMA Scrn (Ecstasy) U Benzodiazepines Scrn Urine Cocaine Screen U Marijuana (THC) Screen COVID-19 PCR 08/28/19 08/28/19 03:50 11:00 WBC RBC Hgb Hct MCV MCH MCHC RDW Plt Count Neut % (Auto) Lymph % (Auto) [place] % (Auto) Eos % (Auto) Baso % (Auto) Neut # (Auto) Lymph # (Auto) [place] # (Auto) Eos # (Auto) Baso # (Auto) Sodium Potassium Chloride Carbon Dioxide BUN Creatinine Estimated GFR BUN/Creatinine Ratio Glucose Calcium Magnesium Troponin I < 0.012 Triglycerides Cholesterol LDL Cholesterol, Calc HDL Cholesterol TSH 1.19 U Opiates 300ng/mL cut Ur Oxycodone Screen Urine Methadone Screen Ur Barbiturates Screen U Tricyclic Antidepress Ur Phencyclidine Scrn Ur Amphetamines Screen U Methamphetamines Scrn Ur MDMA Scrn (Ecstasy) U Benzodiazepines Scrn Urine Cocaine Screen U Marijuana (THC) Screen COVID-19 PCR Assessment & Plan Assessment & Plan narrative: Syncopal episode concerning for for a TIA versus CVA, acute, present on admission -most likely related to orthostatic hypotension -carbidopa levodopa can cause orthostasis, however given his Parkinson's disease will continue these for now -will start midodrine 5 mg q.6 hours and recheck orthostatic -MRI obtained no evidence of acute CVA -await echo results -continue physical therapy and occupational -will continue to monitor orthostatic vital signs Parkinson's disease, chronic, present on admission -continue home dose of carbidopa levodopa 50/200 1 tab at 9:00 a.m., 1300, 1700, and 2200 -continue home dose of entacapone 200 mg taken with his carbidopa levodopa -continue home dose of selgiline 5 mg po bid CAD, chronic -patient underwent a 3 vessel bypass approximately 20 years ago and subsequent stent placement in 3 vessels a year later -continue home dose of propanolol 10 mg p.o. b.i.d. -will taper propanolol given orthostasis Hyperlipidemia, chronic -continue pravastatin 20 mg p.o. at bedtime Neurogenic bladder -Continue home dose of tamsulosin 0.4 mg po daily Depression and anxiety, chronic -continue home dose of mirtazapine 45 mg p.o. at bedtime -Continue home dose of levomefolate calcium 15 po daily -Continue home dose of citalopram 20 mg po daily -Continue clonazapam 1 mg po bid Insomnia, chronic Continue home dose of melatonin 10 mg, auto subbed to 9 mg at bedtime Neurocognitive condition, not specified -Continue home dose of donepezil 10 mg po at bedtime
[2019-08-28 16:17] VITALS: BP 106/58; PULSE 56; RESP 18; TEMP 36.8; O2SAT 98
--- NOTE | 2019-08-28 16:21 | CM.DANOTE ---
Discharge Planning/Care Management DCP: assessment: case received, EMR reviewed and met with pt during Team Bedside Rounds. Introduced self and role. Pt is a 79 year old male who admitted last evening to care of hospitalist team. PCP: Dr. Raoul Salguero Pt also sees a neurologist at [facility] for Parkinson's management. [facility] Pt explained to the team that his would be in later in the afternoon and that she provides supportive assist to him incuding medication management. He wished to have the update her when she came to hospital and Dr. Liang agreed to same. Testing was planned for today including MRI and ECHO. PT and OT were ordered. A check in now shows that therapy eval were limited by pt's BP drops during activity. Will follow up tomorrow. P: to be determined CM Discharge Assessment Start: 08/28/19 16:19 Freq: Status: Active Protocol: Document 08/28/19 16:20 ITV (Rec: 08/28/19 16:21 ITV [id number]) Discharge Planning Assessment Advance Directives? No Advance Directives on File No History Provided By Patient,Medical Record Prior Living Arrangements House Household Members spouse White-board Updated in Patient Room with Yes name and ext. # of Putty [employer]er Review Status In Process
[2019-08-28] MEDS: MIDODRINE HCL 5 MG TABLET PO (17:28)
[2019-08-28 20:36] VITALS: BP 117/63; PULSE 57; RESP 20; TEMP 36.5; O2SAT 97
[2019-08-28] MEDS: MIRTAZAPINE 15 MG TABLET 45 MG PO (21:09)
[2019-08-28] MEDS: DONEPEZIL 5 MG TABLET 20 MG PO (21:09)
[2019-08-28] MEDS: PRAVASTATIN 20 MG TABLET PO (21:10)
[2019-08-28] MEDS: PROPRANOLOL 10 MG TABLET 5 MG PO (21:10)
[2019-08-28] MEDS: SENNOSIDES 8.6 MG TABLET PO (21:10)
[2019-08-29] VITALS (7 sets, daily range): BP systolic 85–150; BP diastolic 55–80; PULSE 55–96; RESP 16–18; TEMP 36.1–36.8; O2SAT 95–98
--- NOTE | 2019-08-29 02:11 | PC.NURSE ---
Patient seen and assessed at 0055. Is alert; oriented to self, birthdate, month/year, place and day of week. NIH was 1 due to being incorrect on his age. Breath sounds diminished but CTA with RA sat of 95%. HRR but bradycardic at 55 bpm. BP elevated at 142/69. Telemetry reading at 0000 was SB. Denies nausea. BT present and states he is passing flatus. Voiding per urinal; denies dysuria, frequency or urgency. Is able to turn himself. When out of bed uses walker and 1 assist as is weak. Some bilateral UE tremoring noted likely due to Parkinson's. Bilateral calf SCD's applied at shift change and had 1 of them off and tubing up around upper body so reapplied but currently complaining about having them on and requested they be removed. Denied any pain. Fall risk score is high and bed alarm is on.
[2019-08-29] MEDS: PANTOPRAZOLE 20 MG TABLET PO (05:46)
[2019-08-29] MEDS: MIDODRINE HCL 5 MG TABLET PO ×3 (05:46→18:47)
[2019-08-29 06:14] LABS: Add Manual Diff / Slide Review NO; Basophils Absolute Auto 100 /uL (0-100); Basophils Percent Auto 1.3 % (0-2); Eosinophils Absolute Auto 200 /uL (0-450); Eosinophils Percent Auto 2.3 % (2-4); Hematocrit 36.3 % (41-53); Hemoglobin 12.5 g/dL (13.5-17.5); Lymphocytes Absolute Auto 2000 /uL (1100-4500); Lymphocytes Percent Auto 29.9 % (25-40); Mean Corpuscular HGB Conc 34.4 % (30-36); Mean Corpuscular Hemoglobin 31.9 PG (26-34); Mean Corpuscular Volume 92.7 fL (80-100); Monocytes Absolute Auto 600 /uL (0-900); Monocytes Percent Auto 8.4 % (3-14); Neutrophils Absolute Auto 3900 /uL (1500-7000); Neutrophils Percent Auto 58.1 % (50-75); Platelet Count 131 X10^3/uL (150-400); Red Blood Cell Count 3.92 X10^6/uL (4.5-5.9); Red Cell Distribution Width 13.3 % (11.6-14.8); White Blood Cell Count 6.8 X10^3/uL (4.5-11.0)
[2019-08-29 06:25] LABS: Albumin 3.7 g/dL (3.5-5.0); Albumin Globulin Ratio 1.6 (1.0-2.8); Alkaline Phosphatase 52 U/L (38-126); Aspartate Aminotransferase 31 IU/L (17-59); BUN Creatinine Ratio 24.2 (6-22); Bilirubin Total 0.6 mg/dL (0.2-1.3); Blood Urea Nitrogen 22 mg/dL (9-20); Calcium 9.3 mg/dL (8.4-10.2); Carbon Dioxide 29 mmol/L (22-32); Chloride 106 mmol/L (98-107); Estimated Glomerular Filt Rate > 60.0 mL/min (>60); Globulin 2.3 g/dL (1.7-4.1); Glucose 96 mg/dL (80-110); HEMOLYSIS 17 (0-50); Potassium 3.8 mmol/L (3.4-5.1); Sodium 139 mmol/L (137-145)
[2019-08-29 06:28] LABS: Alanine Aminotransferase < 4 IU/L (<50)
[2019-08-29] MEDS: CARBIDOPA-LEVODOPA ER 50/200 TABLET 1 EACH PO ×4 (08:50→21:06)
[2019-08-29] MEDS: ENTACAPONE 200 MG TABLET PO ×4 (08:51→21:06)
[2019-08-29] MEDS: SELEGILINE 5 MG CAPSULE PO (08:51)
[2019-08-29] MEDS: PROPRANOLOL 10 MG TABLET 5 MG PO (08:51)
[2019-08-29] MEDS: CITALOPRAM 20 MG TABLET PO (08:54)
[2019-08-29] MEDS: clonazePAM 0.5 MG TABLET 1.5 MG PO ×2 (08:54→21:05)
[2019-08-29] MEDS: TAMSULOSIN 0.4 MG CAPSULE PO (08:54)
[2019-08-29] MEDS: SODIUM CHLORIDE 0.9% FLUSH 10 ML IV ×2 (08:55→21:06)
--- NOTE | 2019-08-29 10:53 | CM.DPC ---
DCP: continued: Met with pt and his Brenda in Team Bedside Rounds and then followed up afterwards. Dr. Liang explained to all that she was looking closely at pt's medications and adjusting with intent to decrease the low BP episodes which seem to be a component of his recent frequent falls at home. She will have PT follow up during this process. She stated that pt would be here at least until tomorrow. Spoke afterwards with pt and Brenda and asked about HH. Brenda says they have never had this service and she thought it would be most helpful. RN/PT/OT order is now obtained from Dr. Liang. Agency choice list discussed. Decision: [facility]. Referral left for [facility] on the cell line and will fax clinicals, Face/Face document and HH order now. P: DCP team to followup on the [facility] referral and also provide the d/c information and summary when pt does go home. Brenda will be the primary contact for [facility]: using her cell #: [phone]. Will include these notes in the clinical sent to [facility]
--- NOTE | 2019-08-29 11:26 | PC.NURSE ---
Day shift: Pt had shower today. CHEYENNE Silveira helped him. He tolerated well and is happy to of had a shower. Will continue to monitor.
--- NOTE | 2019-08-29 11:54 | PM.PN.1 ---
Subjective Subjective Date Patient Seen: 08/29/19 Interval history: Mr. toni talavera is a 79-year-old male who was admitted to the hospital following a fall at home. He had some confusion following the fall. Both patient and his corroborates that he is had at least a dozen dizzy spells and near syncopal episodes over the past 6 weeks. He apparently has recently started his selegiline for Parkinson's which may correlate to this as well. He was found to be markedly orthostatic again today. With sitting blood pressure dropped to 82 systolic. The patient denies dizziness however. He was able to get up to a shower. Patient's was at the bedside and we discussed diagnosis treatment and plans moving forward Exam Vital Signs (past 8 hours): - 08/29/19 05:00 08/29/19 08:37 Temperature 97.0 F L 97.0 F L Pulse Rate 55 L 57 L Pulse Rate [Orthostatic Lying] 57 L Pulse Rate [Orthostatic Sitting] 67 Pulse Rate [Orthostatic Standing] 68 Respiratory Rate 16 16 Blood Pressure 143/70 H 141/80 H Blood Pressure [Orthostatic Lying] 141/80 H Blood Pressure [Orthostatic Sitting] 85/55 L Blood Pressure [Orthostatic Standing] 124/73 Pulse Oximetry 96 96 Oxygen Delivery Method Room Air Oxygen Flow Rate 0 Narrative Exam Narrative: Pleasant gentleman resting comfortably in no obvious distress Lungs: Decreased breath sounds but clear to auscultation Cardiac exam: Regular rate and rhythm normal S1-S2 Abdomen: Soft nontender nondistended Extremities: No edema Objective Labs Result Diagrams: 08/29/19 05:05 08/29/19 05:05 Labs: Laboratory Results - last 24 hr 08/29/19 08/29/19 05:05 05:05 WBC 6.8 RBC 3.92 L Hgb 12.5 L Hct 36.3 L MCV 92.7 MCH 31.9 MCHC 34.4 RDW 13.3 Plt Count 131 L Neut % (Auto) 58.1 Lymph % (Auto) 29.9 [place] % (Auto) 8.4 Eos % (Auto) 2.3 Baso % (Auto) 1.3 Neut # (Auto) 3900 Lymph # (Auto) 2000 [place] # (Auto) 600 Eos # (Auto) 200 Baso # (Auto) 100 Sodium 139 Potassium 3.8 Chloride 106 Carbon Dioxide 29 BUN 22 H Creatinine 0.91 Estimated GFR > 60.0 BUN/Creatinine Ratio 24.2 H Glucose 96 Calcium 9.3 Total Bilirubin 0.6 AST 31 ALT < 4 Alkaline Phosphatase 52 Total Protein 6.0 L Albumin 3.7 Globulin 2.3 Albumin/Globulin Ratio 1.6 Assessment & Plan Assessment & Plan narrative: Syncopal episode -most likely related to orthostatic hypotension -carbidopa levodopa can cause orthostasis, however given his Parkinson's disease will continue these for now -will discontinue selegiline given his symptoms started after initiation of this medication. Known side effect is dizziness and or fainting. -will start midodrine 5 mg q.6 hours and recheck orthostatic -MRI obtained no evidence of acute CVA -await echo results -continue physical therapy and occupational -will continue to monitor orthostatic vital signs -will titrate midodrine as appropriate Parkinson's disease, chronic, present on admission -continue home dose of carbidopa levodopa 50/200 1 tab at 9:00 a.m., 1300, 1700, and 2200 -continue home dose of entacapone 200 mg taken with his carbidopa levodopa -discontinue selegiline -will discontinue propanolol CAD, chronic -patient underwent a 3 vessel bypass approximately 20 years ago and subsequent stent placement in 3 vessels a year later - Hyperlipidemia, chronic -continue pravastatin 20 mg p.o. at bedtime Neurogenic bladder -Continue home dose of tamsulosin 0.4 mg po daily Depression and anxiety, chronic -continue home dose of mirtazapine 45 mg p.o. at bedtime -Continue home dose of levomefolate calcium 15 po daily -Continue home dose of citalopram 20 mg po daily -Continue clonazapam 1 mg po bid Insomnia, chronic Continue home dose of melatonin 10 mg, auto subbed to 9 mg at bedtime Neurocognitive condition, not specified -Continue home dose of donepezil 10 mg po at bedtime After discontinuation of the selegiline and initiation of midodrine as well as discontinuation of propanolol will continue to monitor orthostatic vital signs. In addition will continue with physical therapy and occupational therapy. Once the patient's blood pressure stabilized and he is no longer dizzy with standing anticipate discharge home with home health PT and OT.
--- NOTE | 2019-08-29 12:29 | PT.IPTN ---
Physical Therapy Treatment Note M2 PT-IP Current Condition Start: 08/28/19 14:47 Freq: NEEDED Status: Active Protocol: Document 08/28/19 13:30 AB (Rec: 08/28/19 15:09 AB [id number]) Physical Therapy Current Condition Current Condition Evaluation Date 08/28/19 Treatment Diagnosis syncope; PD; difficulty in walking Onset Date 08/27/19 Precautions Other Precautions orthostatic BP; falls M3 PT-IP Subjective Start: 08/28/19 14:47 Freq: NEEDED Status: Active Protocol: Document 08/29/19 12:07 AW (Rec: 08/29/19 12:29 AW [id number]) Subjective Physical Therapy Visit Type Type Treatment Note Visit Start Time 11:38 Visit Stop Time 12:06 Total Visit Minutes 28 Number of ELECTROPLATING SALES REPRESENTATIVE Visits 0 Physical Therapy Visit Comments Patient Comments pt is agreeable to do PT Therapy Pain Assessment Pain When Pain Assessed During Mobility Pain Present Pain Present Denied Pain M4 PT-IP Mobility and Gait Start: 08/28/19 14:47 Freq: NEEDED Status: Active Protocol: Document 08/29/19 12:07 AW (Rec: 08/29/19 12:29 AW [id number]) PT-Bed Mobility Assessment Supine to Sit Supine to Sit Standby Assistance Scooting Scooting to Edge of Bed Standby Assistance PT-Transfer Assessment Sit to and From Stand Sit to and from Stand Contact Guard Assistance,1 Person Assistance,Use of Upper Extremities Equipment Transfer Assistive Device Gait Belt,Front Wheeled Walker Orthotic/Prosthetic Devices or Brace: No Transfers Transfer Destination Chair Transfer Technique ambulated with FWW Transfer Ability Level of Assist Contact Guard Assistance Comments Mobility Comments Pt lying in bed upon PT arrival. Orthostatic BP documented below. He transferred supine to sit with HOB flat SBA and no compaint of lightheadedness or other symptoms. Pt sat several minutes for repeat BP; seated BP after 2 minutes was 103/69 and after an additional 2 minutes it was 128/74. Pt then stood with FWW CGA. After 2 minutes standing, BP was 92/61 which persisted after an additional 2 minutes including standing marches at bedside. Pt continued to deny symptoms. Pt then ambulated around the room x 3 with FWW CGA before complaining of soreness in his anterior thighs. Pt transferred to the chair [facility] and was positioned there for lunch with call light and all needs within reach. Gait Assessment Gait Gait Assistance Required: Contact Guard Assist,1 Person Assist Distance (Feet) 60 Assistive Devices Assistive Device Gait Belt,Front Wheeled Walker Gait Deviations General Gait Pattern Decreased Stride Length, Decreased Feet Clearance, Flexed Trunk,Narrow Based Gait Factors Limiting Gait Function Factors Limiting Gait Function Decreased Activity Tolerance, Decreased Strength,Pain,Poor Balance,Poor Safety Awareness Comments Gait Comments Pt ambulated around the room with cues for BIG steps including foot clearance and step length. Pt seen 3 hours after his last dose of carbidopa levodopa. No festination or freezing of gait noted. PT-Balance Assessment Sitting Balance and Reactions Static Sitting Balance Ability Good Dynamic Sitting Balance Ability Fair Standing Balance and Reactions Static Standing Balance Ability Fair Dynamic Standing Balance Ability Fair Device Used FWW M5 PT-IP Objective Assessments Start: 08/28/19 14:47 Freq: NEEDED Status: Active Protocol: Document 08/28/19 13:30 AB (Rec: 08/28/19 15:09 AB [id number]) Orientation Orientation/Cognition Level of Alertness Alert Orientation Name Language Function Ability Hard of Hearing Safety Awareness Decreased Safety Awareness Memory Description Short Term Impaired Gross Range of Motion Lower Extremity ROM Assessment Within Functional Limits Strength Lower Extremity Strength Assessment Within Functional Limits M6 PT-IP Treatment Start: 08/28/19 14:47 Freq: NEEDED Status: Active Protocol: Document 08/29/19 12:07 AW (Rec: 08/29/19 12:29 AW [id number]) Physical Therapy Treatment Education Education Provided Safety Other Treatments Other Treatment Performed Discussed at length with the pt need for pauses after each change in position even when not symptomatic. M7 PT-IP Assessment and Plan Start: 08/28/19 14:47 Freq: NEEDED Status: Active Protocol: Document 08/29/19 12:07 AW (Rec: 08/29/19 12:29 AW [id number]) PT Summary Assessment and Plan Potential Rehabilitation Potential Good Status of Condition at Evaluation Stable Summary Impairments Pain,ROM,Strength,Balance, Coordination,Sensation,Tone, Cognition,Bed Mobility, Transfers,Gait,Activity Tolerance Progress Towards Goals Progressing Toward Goals Assessment Summary Pt ambulated around the room this date with FWW CGA and responded well/showed good stimulability with cues for bigger foot clearance and step length. Pt continues to exhibit orthostatic hypotension but remains asymptomatic. Will continue to follow and to refine discharge recommendation. At this time, pt will require 24/ 7 assist with all mobility due to hemodynamic instability, history of syncope, and recent increase in falls. Pt would also benefit from home health services. Goals Bed Mobility Goal Independent Transfer Goal Independent,Front Wheeled Walker Gait Goal Independent,Front Wheel Walker Gait Distance 200 Other Goals up/down 1 steps using FWW SBA Days to Meet Goals 5 Frequency of Treatment Frequency Of Treatment Once a Day Treatment Plan Physical Therapy Treatment Plan Bed Mobility Training,Transfer Training,Gait Training, Therapeutic Exercise,Balance Retraining,Discharge Planning, Hot or Cold Pack,Neuromuscular Re-ed,Coordination Retraining Other Recommendations and Next Treatment ambulation; check orthostatic Focus BP; caregiver training if appropriate Recommendations To Nursing Amount of Assist Needed 1 Person Assist Discharge Recommendations PT Discharge Recommendations Home with 24/7 Assist,Home Health Transportation Needs at Discharge Private Vehicle
[2019-08-29] MEDS: ENOXAPARIN 40 MG/0.4 ML SYRINGE SUBCUT (13:03)
[2019-08-29] MEDS: SENNOSIDES 8.6 MG TABLET PO (21:06)
[2019-08-29] MEDS: MIRTAZAPINE 15 MG TABLET 45 MG PO (21:06)
[2019-08-29] MEDS: DONEPEZIL 5 MG TABLET 20 MG PO (21:06)
[2019-08-29] MEDS: PRAVASTATIN 20 MG TABLET PO (21:06)
[2019-08-30] VITALS (9 sets, daily range): BP systolic 75–163; BP diastolic 51–80; PULSE 52–69; RESP 15–17; TEMP 36.1–36.5; O2SAT 94–100
[2019-08-30] MEDS: PANTOPRAZOLE 20 MG TABLET PO (06:01)
[2019-08-30] MEDS: MIDODRINE HCL 5 MG TABLET PO (06:01)
[2019-08-30] MEDS: CARBIDOPA-LEVODOPA ER 50/200 TABLET 1 EACH PO ×4 (08:25→21:28)
[2019-08-30] MEDS: ENTACAPONE 200 MG TABLET PO ×4 (08:25→21:27)
[2019-08-30] MEDS: TAMSULOSIN 0.4 MG CAPSULE PO (08:32)
[2019-08-30] MEDS: clonazePAM 0.5 MG TABLET 1.5 MG PO ×2 (08:32→21:27)
[2019-08-30] MEDS: SODIUM CHLORIDE 0.9% FLUSH 10 ML IV ×2 (08:33→21:01)
[2019-08-30] MEDS: CITALOPRAM 20 MG TABLET PO (08:33)
[2019-08-30] MEDS: ENOXAPARIN 40 MG/0.4 ML SYRINGE SUBCUT (08:33)
--- NOTE | 2019-08-30 10:19 | OT.IP.TRT ---
Current Diagnoses Syncope and collapse (08/29/19) Occupational Therapy Treatment Note M2 OT-IP Current Condition Start: 08/28/19 13:06 Freq: Status: Active Protocol: Document 08/28/19 13:07 CGR (Rec: 08/28/19 13:23 CGR [id number]) Occupational Therapy Current Condition Current Condition Evaluation Date 08/28/19 Treatment Diagnosis Fall at home Diagnosis Onset Date 08/27/19 M3 OT- IP Subjective and Pain Start: 08/28/19 13:06 Freq: Status: Active Protocol: Document 08/30/19 10:18 CGR (Rec: 08/30/19 10:19 CGR [id number]) OT- Subjective Occupational Therapy Visit Type Type Administrative Note Notes Attempted to see pt for OT services this AM x 2. Pt initially states that he would like to rest and upon second attempt pt still requesting to rest. Cog assessment performed by speech therapy this AM with a reported score (per nursing) of 14/30 on the SLUMS.
--- NOTE | 2019-08-30 10:25 | ST.IPIE ---
IP Initial Evaluation Report [employer]FORMAT[employer]ATE Cognitive/Memory Evaluation Start: 08/30/19 10:02 Freq: Status: Active Protocol: Document 08/30/19 10:03 TLC (Rec: 08/30/19 10:25 TLC [id number]) Evaluation of Cognition Session Time Visit Start Time 07:50 Visit Stop Time 08:15 Total Visit Minutes 25 Past Medical History Patient History Patient is a 79 year old male with Parkinson's who was brought in for a ground level fall at home. He was also here ~ 2 weeks ago for a fall. Occupational Status Occupation Status Retired Previous Therapy Previous Speech-Language Therapy No Oral Motor Examination Oral Motor Exam Completed No Subjective Subjective Patient stated he was tired, but agreed to participate in evaluation. - Informal Assessment Receptive Language Normal Yes Expressive Language Normal No: word finding deficits - Cognition Orientation Skill Level Mildly Impaired Attention Skill Level Mildly Impaired Problem Solving/Reasoning/Judgment Skill Level Mildly Impaired Divergent Naming Skill Level Mildly Impaired Auditory Math Skill Level Mildly Impaired Clock Drawing Skill Level Moderately Impaired - Memory Short Term Memory Skill Level Moderately Impaired Word Recall Skill Level Moderately Impaired Story Recall Skill Level Moderately Impaired - Findings Cognitive/Memory Impressions Patient scored 14/30 on the SLUMs indicating dementia. He was oriented to day of the week, year and state. He recalled 5 objects immediately , but was only able to recall 1/5 after a short delay. He had difficulty with divergent naming, reverse digit span of 4 digits and clock drawing. He required frequent repetitions of directions during the clock drawing task and incorrectly placed numbers and hands. He answered 2/4 questions correctly about a short story read aloud. I provided verbal education regarding call light use prior to exiting the room. Additionally, nursing staff made a sign instructing patient to use call light which is hung on the wall by his television. Despite these aids, patient is not using call light correctly and remains a high fall risk. Recommendations Recommendations Patient is retired and stays at home while his works. Given results of the evaluation today which demonstrated deficits in memory, attention and problem solving, it is recommended that he receive caregiver support while his is at work. Without assistance, he is at increased risk for falls , confusion and unsafe situations related to medication management, meal prep and other ADLs. In addition to caregiver support, patient would benefit from speech therapy to target problem solving and memory for increased safety in his home environment. Treatment Goals Short Term Goals Binu will use the call light appropriately given external memory aids in order to maintain safety and avoid falls during his inpatient stay. Total Time Full Evaluation Time 25
--- NOTE | 2019-08-30 10:39 | PC.NURSE ---
Day shift: Pt refused his SCD's today. Explained to them their purpose. He is getting Lovenox at this time. Bed alarm is on and call light in reach. Needs to be reminded to use call light. When in bed we also have a chair alarm attached to hime. He has been eating well but reports no BM for approx 5 days. MD made aware and bowel meds ordered.
[2019-08-30] MEDS: BISACODYL 5 MG TABLET 10 MG PO (10:52)
[2019-08-30] MEDS: polyethylene glycoL 3350 17 GM POWD.PACK PO (10:52)
[2019-08-30] MEDS: MAGNESIUM HYDROXIDE 30 ML UDC PO (10:52)
--- NOTE | 2019-08-30 10:55 | CM.DPC ---
DCP Cont: Discussed patient during team rounds. was present at bedside. Patient is continuing to have a drop in his orthostatic BP readings. He has been having some dizziness while standing. Dr. Liang will be doing some medication changes today, and will re-evaluate tomorrow. Confirmed that the plan is still for patient to go home with [facility]. Patient was alert during the meeting. P: DCP to continue to follow. Patient will be discharged with [facility]. Loli Trejo RN/Surgical Assistant Certified
[2019-08-30] MEDS: MIDODRINE HCL 5 MG TABLET 10 MG PO ×2 (12:21→18:11)
--- NOTE | 2019-08-30 13:41 | DIET.PN ---
Dietary Progress Note Assessment: Mr. Dominguez is a 79-year-old male who was admitted to the hospital following a fall at home related to dizziness. He has hx of Parkinson's, CAD, and mild dementia. Reports moderate decrease in intake, weight loss, no BM x 5 days. HT: 167.64cm WT: 70.3kg UBW: 72.8kg (07/2019) BMI: 24.6 Labs: BUN: 22 MNA: 7 John: 20 Nutrition Diagnosis: No nutrition DX at this time. Interventions: 1. Provided Heart healthy- reduced sodium nutrition education. Includes a list of recommended and not recommended foods. 2. ONS ensure BID if PO's less than 75%. Diet Order: Heart Healthy; Cardiac EER: 1750cal (25 mike/kg); 70-85g Protein (1-1.2 g/kg) Monitoring/Evaluations: Wt, PO's
--- NOTE | 2019-08-30 13:45 | PM.PN.1 ---
Subjective Subjective Date Patient Seen: 08/30/19 Interval history: Mr. toni talavera is a 79-year-old male who was admitted to the hospital for syncopal episode. During the patient's evaluation with Occupational therapy he was found to be markedly orthostatic with sitting and standing. Orthostatic vital signs today reveal the patient's blood pressure 132/62 lying with a pulse of 52, sitting 111/62 with a pulse of 59, standing 77/56 with a pulse of 66. Patient indicates he continues to be dizzy with standing. His selegiline has been discontinued. The patient's propanolol was discontinued. And his midodrine was increased to 10 mg 4 times daily. Will continue to monitor his blood pressure and dizziness closely. Exam Vital Signs (past 8 hours): - 08/30/19 09:13 08/30/19 09:16 08/30/19 09:18 Temperature 97.2 F L Pulse Rate 52 L 59 L 66 Pulse Rate [Orthostatic Lying] 52 L Pulse Rate [Orthostatic Sitting] 59 L Pulse Rate [Orthostatic Standing] 66 Respiratory Rate 15 Blood Pressure 132/62 111/62 77/56 L Blood Pressure [Orthostatic Lying] 132/62 Blood Pressure [Orthostatic Sitting] 111/62 Blood Pressure [Orthostatic Standing] 77/56 L Pulse Oximetry 97 08/30/19 11:50 Temperature 97.2 F L Pulse Rate 52 L Pulse Rate [Orthostatic Lying] Pulse Rate [Orthostatic Sitting] Pulse Rate [Orthostatic Standing] Respiratory Rate 16 Blood Pressure 163/80 H Blood Pressure [Orthostatic Lying] Blood Pressure [Orthostatic Sitting] Blood Pressure [Orthostatic Standing] Pulse Oximetry 97 Oxygen Delivery Method Room Air Oxygen Flow Rate 0 Narrative Exam Narrative: Pleasant gentleman lying comfortably in no obvious distress Lungs: Clear to auscultation Cardiac exam: Regular rate and rhythm normal S1-S2 with a 2/6 systolic ejection murmur Abdomen: Soft nontender nondistended Extremities: No edema Objective Labs Result Diagrams: 08/29/19 05:05 08/29/19 05:05 Assessment & Plan Assessment & Plan narrative: Assessment & Plan narrative: Syncopal episode -most likely related to orthostatic hypotension -carbidopa levodopa can cause orthostasis, however given his Parkinson's disease will continue these for now -will discontinue selegiline given his symptoms started after initiation of this medication. Known side effect is dizziness and or fainting. -will increase midodrine 10 mg q.6 hours and recheck orthostatic, need to monitor for hypertension as well -MRI obtained no evidence of acute CVA -await echo results ( need to get manual copy as [employer] is not populating reports) -continue physical therapy and occupational -will continue to monitor orthostatic vital signs - Parkinson's disease, chronic, present on admission -continue home dose of carbidopa levodopa 50/200 1 tab at 9:00 a.m., 1300, 1700, and 2200 -continue home dose of entacapone 200 mg taken with his carbidopa levodopa -discontinue selegiline -will discontinue propanolol CAD, chronic -patient underwent a 3 vessel bypass approximately 20 years ago and subsequent stent placement in 3 vessels a year later - Hyperlipidemia, chronic -continue pravastatin 20 mg p.o. at bedtime Neurogenic bladder -Continue home dose of tamsulosin 0.4 mg po daily Depression and anxiety, chronic -continue home dose of mirtazapine 45 mg p.o. at bedtime -Continue home dose of levomefolate calcium 15 po daily -Continue home dose of citalopram 20 mg po daily -Continue clonazapam 1 mg po bid Insomnia, chronic Continue home dose of melatonin 10 mg, auto subbed to 9 mg at bedtime Neurocognitive condition, not specified -Continue home dose of donepezil 10 mg po at bedtime After discontinuation of the selegiline and initiation of midodrine as well as discontinuation of propanolol will continue to monitor orthostatic vital signs. In addition will continue with physical therapy and occupational therapy. Once the patient's blood pressure stabilized and he is no longer dizzy with standing anticipate discharge home with home health PT and OT.
--- NOTE | 2019-08-30 14:25 | PT.IPTN ---
Current Diagnoses Syncope and collapse (08/29/19) Physical Therapy Treatment Note M2 PT-IP Current Condition Start: 08/28/19 14:47 Freq: NEEDED Status: Active Protocol: Document 08/28/19 13:30 AB (Rec: 08/28/19 15:09 AB [id number]) Physical Therapy Current Condition Current Condition Evaluation Date 08/28/19 Treatment Diagnosis syncope; PD; difficulty in walking Onset Date 08/27/19 Precautions Other Precautions orthostatic BP; falls M3 PT-IP Subjective Start: 08/28/19 14:47 Freq: NEEDED Status: Active Protocol: Document 08/30/19 14:13 AW (Rec: 08/30/19 14:25 AW [id number]) Subjective Physical Therapy Visit Type Type Treatment Note Visit Start Time 13:55 Visit Stop Time 14:12 Total Visit Minutes 17 Number of COMMUNITY RECREATION COORDINATOR Visits 0 Physical Therapy Visit Comments Patient Comments Pt hoping to nap but willing to participate with PT Therapy Pain Assessment Pain When Pain Assessed During Mobility Pain Present Pain Present Allowed to Sleep M4 PT-IP Mobility and Gait Start: 08/28/19 14:47 Freq: NEEDED Status: Active Protocol: Document 08/30/19 14:13 AW (Rec: 08/30/19 14:25 AW [id number]) PT-Bed Mobility Assessment Supine to Sit Supine to Sit Standby Assistance Sit to Supine Sit to Supine Standby Assistance Scooting Scooting to Edge of Bed Standby Assistance PT-Transfer Assessment Sit to and From Stand Sit to and from Stand Standby Assistance,1 Person Assistance,Use of Upper Extremities Equipment Transfer Assistive Device Gait Belt,Front Wheeled Walker Orthotic/Prosthetic Devices or Brace: No Transfers Transfer Destination Bed Transfer Technique ambulated with FWW Transfer Ability Level of Assist Contact Guard Assistance Comments Mobility Comments Pt lying in bed when PT arrived. BP in supine was 118/ 68 HR 59. Pt transferred to sitting on the right side of the bed. BP after two minutes was 88/60 HR 65. Pt stood with FWW for support with BP 75/51 HR 69 after two minutes. Pt denied symptoms of lightheadedness or vision changes. PT decided to trial ambulation in the halls with the pt for a total of 120 feet . Pt continued to deny symptoms. BP after activity was 85/55 HR 65. Pt completed sit to supine but then requested to use the toilet. He required SBA for transfer to the toilet. Pt was left in the bathroom with CELL STRIPPER FINAL attending. Gait Assessment Gait Gait Assistance Required: Standby Assistance,Contact Guard Assist,1 Person Assist Distance (Feet) 120 Assistive Devices Assistive Device Gait Belt,Front Wheeled Walker Gait Deviations General Gait Pattern Decreased Stride Length, Decreased Feet Clearance, Flexed Trunk,Narrow Based Gait Factors Limiting Gait Function Factors Limiting Gait Function Decreased Activity Tolerance, Decreased Strength,Poor Balance,Poor Safety Awareness Comments Gait Comments Pt ambulated with short but equal step lengths and improved foot clearance in response to cues. Pt was one hour post last dose of carbidopa levodopa. PT-Balance Assessment Sitting Balance and Reactions Static Sitting Balance Ability Good Dynamic Sitting Balance Ability Good Standing Balance and Reactions Static Standing Balance Ability Fair Dynamic Standing Balance Ability Fair Device Used FWW M5 PT-IP Objective Assessments Start: 08/28/19 14:47 Freq: NEEDED Status: Active Protocol: Document 08/28/19 13:30 AB (Rec: 08/28/19 15:09 AB [id number]) Orientation Orientation/Cognition Level of Alertness Alert Orientation Name Language Function Ability Hard of Hearing Safety Awareness Decreased Safety Awareness Memory Description Short Term Impaired Gross Range of Motion Lower Extremity ROM Assessment Within Functional Limits Strength Lower Extremity Strength Assessment Within Functional Limits M6 PT-IP Treatment Start: 08/28/19 14:47 Freq: NEEDED Status: Active Protocol: Document 08/30/19 14:13 AW (Rec: 08/30/19 14:25 AW [id number]) Physical Therapy Treatment Education Education Provided Safety M7 PT-IP Assessment and Plan Start: 08/28/19 14:47 Freq: NEEDED Status: Active Protocol: Document 08/30/19 14:13 AW (Rec: 08/30/19 14:25 AW [id number]) PT Summary Assessment and Plan Potential Rehabilitation Potential Good Status of Condition at Evaluation Stable Summary Impairments Pain,ROM,Strength,Balance, Coordination,Sensation,Tone, Cognition,Bed Mobility, Transfers,Gait,Activity Tolerance Progress Towards Goals Progressing Toward Goals Assessment Summary Pt increased ambulation distance today in spite of orthstatic hypotension with drop in SBP from 118 to 88. Pt continues to deny symptoms. Will continue to follow and to refine discharge recommendation. At this time, pt will require 24/7 assist with all mobility due to hemodynamic instability, history of syncope, and recent increase in falls. Pt would also benefit from home health services. Goals Bed Mobility Goal Independent Transfer Goal Independent,Front Wheeled Walker Gait Goal Independent,Front Wheel Walker Gait Distance 200 Other Goals up/down 1 steps using FWW SBA Days to Meet Goals 5 Frequency of Treatment Frequency Of Treatment Once a Day Treatment Plan Physical Therapy Treatment Plan Bed Mobility Training,Transfer Training,Gait Training, Therapeutic Exercise,Balance Retraining,Discharge Planning, Hot or Cold Pack,Neuromuscular Re-ed,Coordination Retraining Other Recommendations and Next Treatment ambulation; check orthostatic Focus BP; caregiver training if appropriate Recommendations To Nursing Amount of Assist Needed 1 Person Assist Discharge Recommendations PT Discharge Recommendations Home with 09/09 Assist,Home Health Transportation Needs at Discharge Private Vehicle
[2019-08-30] MEDS: MIRTAZAPINE 15 MG TABLET 45 MG PO (21:27)
[2019-08-30] MEDS: MELATONIN 3 MG TABLET 9 MG PO (21:27)
[2019-08-30] MEDS: PRAVASTATIN 20 MG TABLET PO (21:27)
[2019-08-30] MEDS: DONEPEZIL 5 MG TABLET 20 MG PO (21:28)
[2019-08-31] VITALS (7 sets, daily range): BP systolic 94–145; BP diastolic 42–75; PULSE 58–88; RESP 16–18; TEMP 36.1–36.6; O2SAT 96–98
[2019-08-31] MEDS: PANTOPRAZOLE 20 MG TABLET PO (05:25)
[2019-08-31] MEDS: MIDODRINE HCL 5 MG TABLET 10 MG PO ×3 (05:25→17:32)
[2019-08-31] MEDS: SODIUM CHLORIDE 0.9% FLUSH 10 ML IV ×2 (08:25→21:28)
[2019-08-31] MEDS: CARBIDOPA-LEVODOPA ER 50/200 TABLET 1 EACH PO ×4 (08:25→21:26)
[2019-08-31] MEDS: ENTACAPONE 200 MG TABLET PO ×4 (08:25→21:26)
[2019-08-31] MEDS: ENOXAPARIN 40 MG/0.4 ML SYRINGE SUBCUT (08:32)
[2019-08-31] MEDS: clonazePAM 0.5 MG TABLET 1.5 MG PO ×2 (08:32→21:26)
[2019-08-31] MEDS: TAMSULOSIN 0.4 MG CAPSULE PO (08:32)
[2019-08-31] MEDS: polyethylene glycoL 3350 17 GM POWD.PACK PO (08:32)
[2019-08-31] MEDS: CITALOPRAM 20 MG TABLET PO (08:33)
--- NOTE | 2019-08-31 09:23 | PC.NURSE ---
Day shift: Per NOC RN Rosamaria's report Pt confused, frustrated and angry at time overnight. Was not physical though. Pt stated that he had an ocean view in [place] and was also calling out for his ex- from 35 years ago. Pt's spouse called and talked about this with this story writer this am. Pt's sppouse stated this has been happening at home as well. The above info passed along verbally to Dr Jamil.
--- NOTE | 2019-08-31 09:34 | OT.IP.TRT ---
Current Diagnoses Syncope and collapse (08/29/19) Occupational Therapy Treatment Note M2 OT-IP Current Condition Start: 08/28/19 13:06 Freq: Status: Active Protocol: Document 08/28/19 13:07 CGR (Rec: 08/28/19 13:23 CGR [id number]) Occupational Therapy Current Condition Current Condition Evaluation Date 08/28/19 Treatment Diagnosis Fall at home Diagnosis Onset Date 08/27/19 M3 OT- IP Subjective and Pain Start: 08/28/19 13:06 Freq: Status: Active Protocol: Document 08/31/19 11:51 [facility] (Rec: 08/31/19 12:07 [facility] [id number]) OT- Subjective Occupational Therapy Visit Type Type Treatment Note Visit Start Time 08:55 Visit Stop Time 09:34 Total Visit Minutes 39 Occupational Therapy Visit Comments Patient Comments Pt wanting to try to use the bathroom and shower if able. Patient/Caregiver Goals To go home. OT Pain Assessment Pain When Pain Assessed At Rest Pain Present Pain Present Denied Pain M4 OT- IP ADL's Start: 08/28/19 13:06 Freq: Status: Active Protocol: Document 08/31/19 11:51 [facility] (Rec: 08/31/19 12:07 [facility] [id number]) OT ADL-Grooming Comments OT Grooming Comments Pt states too tired to attempt after washing his hands. OT ADL-Toileting General Evaluation Toileting Ability Standby Assistance Comments OT Toileting Comments Pt just needing assist for set- up while use of BSC for bowel movement. OT ADL-Bathing Comments OT Bathing Comments Not feeling well enough to attempt. M5 OT- IP IADL's Start: 08/28/19 13:06 Freq: Status: Active Protocol: Document 08/28/19 13:07 [facility] (Rec: 08/28/19 13:23 CGR [id number]) OT-Instrumental Activities of Daily Living Deficits IADL Deficits Identified No Deficits Home Safety Awareness Awareness of Need for Assistance at Home Good Awareness Ability to Problem Solve Emergency Able to Problem Solve Situations Medication Management Medication Management No Deficits Identified Money Management Money Management No Deficits Identified Meal Preparation Meal Preparation No Deficits Identified Supervisor Tank Storage Supervisor Tank Storage No Deficits Identified M6 OT- IP Functional Cognition Start: 08/28/19 13:06 Freq: Status: Active Protocol: Document 08/31/19 11:51 [facility] (Rec: 08/31/19 12:07 [facility] [id number]) Cognitive Factors Limiting Selfcare Function Cognitive Comments Cognitive Assessment Comments Per SECONDARY EDUCATION PROFESSOR , pt scored 14/30 on the SLUMS. Pt having difficulty to recall information and not remembering what the physician just told him earlier. Pt was encouraged to write down information to help remind him . M7 OT- IP Mobility and Balance Start: 08/28/19 13:06 Freq: Status: Active Protocol: Document 08/31/19 11:51 [facility] (Rec: 08/31/19 12:07 [facility] [id number]) OT- Bed Mobility Assessment Supine to Sit Supine to Sit Assist Standby Assistance Sit to Supine Sit to Supine Assist Standby Assistance OT-Transfer Assessment Sit to and From Stand Sit to and from Stand Standby Assistance Transfers Transfer Ability Standby Assistance,Contact Guard Assistance Technique Transfer Destination Bed,Bedside Commode Transfer Technique Stand Step Pivot Devices Transfer Assistive Devices Front Wheeled Walker Comments Mobility Comments BP supine 116/63 hr 70 Sitting 102/57 hr 72 Standing 105/42 hr 88 Sitting 88/55 and while on BSC 119/87 Pt states feeling whoozy and that he legs felt weak and not wanting to shower at this time. Pt's came if and suggested would be best for pt to have shower chair at home to use. OT- Balance Assessment Sitting Balance and Reactions Static Sitting Balance Ability Normal Dynamic Sitting Balance Ability Good Standing Balance and Reactions Static Standing Balance Ability Fair Dynamic Standing Balance Ability Fair M8 OT- IP Objective Assessments Start: 08/28/19 13:06 Freq: Status: Active Protocol: Document 08/28/19 13:07 CGR (Rec: 08/28/19 13:23 CGR [id number]) OT Gross Range of Motion Upper Extremity Range of Motion Assessment Within Functional Limits OT Strength Upper Extremity Strength Assessment Within Functional Limits Comments Strength Comments 4+/5 OT- Coordination Assessment Upper Extremity Finger to Nose Test Within Functional Limits Finger Tapping Test Within Functional Limits OT-Muscle Tone Assessment Muscle Tone WNL Yes OT Sensation Assessment Edema Edema Absent M9 OT- IP Assessment and Plan Start: 08/28/19 13:06 Freq: Status: Active Protocol: Document 08/31/19 11:51 [facility] (Rec: 08/31/19 12:07 [facility] [id number]) OT Summary Assessment and Plan Potential Rehabilitation Potential Excellent Analytic Complexity at Evaluation Low Summary OT Impairments Functional Cognition,Shower Transfers,Activity Tolerance Progress Towards Goals Progressing Toward Goals Assessment Summary Pt noted decreased in BP from supine to sitting to standing and not wanting to do a shower at this time due to feeling whoozy. Pt's aware to provide assist as needed and that a shower chair is suggested when pt is showering. Goals Bathing Goal Independent Shower Transfer Goal Independent Days to Meet Goals 1 Frequency of Treatment Frequency Of Treatment Once a Day Treatment Plan OT Treatment Plan ADL Training,Functional Cognition Training,Patient/ Family Education,Discharge Planning Other Treatment Recommendations and Next Shower Treatment Focus Discharge Recommendations OT Discharge Recommendations Home with Assistance Home Equipment Needs Shower chair Transportation Needs at Discharge Private Vehicle
--- NOTE | 2019-08-31 10:17 | ST.IPTN ---
SEGMENTAL PAVING SUPERVISOR Treatment Note SEGMENTAL PAVING SUPERVISOR Treatment Note Start: 08/31/19 10:02 Freq: Status: Active Protocol: Document 08/31/19 10:02 [facility] (Rec: 08/31/19 10:17 [facility] [id number]) Speech Pathology Treatment Note Session Time Visit Start Time 07:45 Visit Stop Time 08:10 Total Visit Minutes 25 Setting Treatment Setting Acute Care Visit Type Note Type Treatment Note Next Note Type Next Note Type Treatment Note Subjective Observations/Patient Presentation Patient was seen lying in bed in room with the phone in his hand. He was trying to call his but did not know her number saying it was in his cell phone but his cell phone was with his . He agreed to sit up and participate in therapy. Chief Complaint(s) Cognitive Patient Knowledge/Awareness of SEGMENTAL PAVING SUPERVISOR Role Fair in Treatment Objective Short Term Goals Binu will use the call light appropriately given external memory aids in order to maintain safety and avoid falls during his inpatient stay. Treatment Activities Assisted patient in retrieving his 's phone number and attempting to contact her. Discussed use of a log to keep track of events to reduce confusion and increase orientation to situation and events. Provided patient with paper and pen to use daily log /schedule. Patient was oriented to the call light when prompted. Discussed reason for call light use to prevent further falls. Assessment Assessment of Improvement Patient recalled call light without prompting; however, continues to be confused and demonstrating decreased safety and problem solving. He expressed frustration with being in the hospital still and not knowing what was going on. Discussed with nursing and explained use of daily log to reduce confusion/ frustration. Patient/Caregiver Understanding Fair Plan Therapeutic Contents Client Education,Cognitive- Linguistic Training Therapy Recommendations Continue with Current Program
--- NOTE | 2019-08-31 11:32 | PT.IPTN ---
Current Diagnoses Syncope and collapse (08/29/19) Physical Therapy Treatment Note M2 PT-IP Current Condition Start: 08/28/19 14:47 Freq: NEEDED Status: Active Protocol: Document 08/28/19 13:30 AB (Rec: 08/28/19 15:09 AB [id number]) Physical Therapy Current Condition Current Condition Evaluation Date 08/28/19 Treatment Diagnosis syncope; PD; difficulty in walking Onset Date 08/27/19 Precautions Other Precautions orthostatic BP; falls M3 PT-IP Subjective Start: 08/28/19 14:47 Freq: NEEDED Status: Active Protocol: Document 08/31/19 10:57 [facility] (Rec: 08/31/19 13:23 [facility] [id number]) Subjective Physical Therapy Visit Type Type Treatment Note Visit Start Time 10:57 Visit Stop Time 11:32 Total Visit Minutes 35 Number of TOWER EQUIPMENT REPAIRER Visits 1 Physical Therapy Visit Comments Patient Comments Pt willing to participate with therapy Therapy Pain Assessment Pain When Pain Assessed During Mobility Pain Present Pain Present Denied Pain M4 PT-IP Mobility and Gait Start: 08/28/19 14:47 Freq: NEEDED Status: Active Protocol: Document 08/31/19 10:57 [facility] (Rec: 08/31/19 13:23 [facility] [id number]) PT-Bed Mobility Assessment Supine to Sit Supine to Sit Standby Assistance Scooting Scooting to Edge of Bed Standby Assistance PT-Transfer Assessment Sit to and From Stand Sit to and from Stand Contact Guard Assistance,1 Person Assistance,Use of Upper Extremities Equipment Transfer Assistive Device Gait Belt,Front Wheeled Walker Orthotic/Prosthetic Devices or Brace: No Transfers Transfer Destination Bed,Chair Transfer Technique ambulated with FWW Transfer Ability Level of Assist Contact Guard Assistance Comments Mobility Comments Pt in bed upon arrival, BP in supine 126/64 with HR 63 BPM, BP in sitting 104/62, BP in standing 118/62 pt's legs were shakey, pt sat on EOB for rest. Pt then stood BP in standing 100/68 with HR 178, HR assessed after two minutes HR 74BPM with pulse oximeter. (RN notified of HR upon reading). Pt ambulated in cloud ~150ft w/FWW/CGA with WC follow, pt had good safety awareness with obstacles in cloud. Pt BP after activity while seated 125/71, HR 74 BPM . Left pt in chair with chair alarm on, call light and all needs within reach. Gait Assessment Gait Gait Assistance Required: Contact Guard Assist,1 Person Assist Distance (Feet) 150 Assistive Devices Assistive Device Gait Belt,Front Wheeled Walker Gait Deviations General Gait Pattern Decreased Stride Length, Decreased Feet Clearance, Flexed Trunk,Narrow Based Gait Factors Limiting Gait Function Factors Limiting Gait Function Decreased Activity Tolerance, Decreased Strength,Poor Balance,Poor Safety Awareness Comments Gait Comments Pt continues to ambulate with short but equal step length and clearance, pt c/o pain in right quad and weakness in left leg during mobility. PT-Balance Assessment Sitting Balance and Reactions Static Sitting Balance Ability Good Dynamic Sitting Balance Ability Good Standing Balance and Reactions Static Standing Balance Ability Fair Dynamic Standing Balance Ability Fair Device Used FWW M5 PT-IP Objective Assessments Start: 08/28/19 14:47 Freq: NEEDED Status: Active Protocol: Document 08/28/19 13:30 AB (Rec: 08/28/19 15:09 AB [id number]) Orientation Orientation/Cognition Level of Alertness Alert Orientation Name Language Function Ability Hard of Hearing Safety Awareness Decreased Safety Awareness Memory Description Short Term Impaired Gross Range of Motion Lower Extremity ROM Assessment Within Functional Limits Strength Lower Extremity Strength Assessment Within Functional Limits M6 PT-IP Treatment Start: 08/28/19 14:47 Freq: NEEDED Status: Active Protocol: Document 08/30/19 14:13 AW (Rec: 08/30/19 14:25 AW [id number]) Physical Therapy Treatment Education Education Provided Safety M7 PT-IP Assessment and Plan Start: 08/28/19 14:47 Freq: NEEDED Status: Active Protocol: Document 08/31/19 10:57 [facility] (Rec: 08/31/19 13:23 [facility] [id number]) PT Summary Assessment and Plan Potential Rehabilitation Potential Good Status of Condition at Evaluation Stable Summary Impairments Pain,ROM,Strength,Balance, Coordination,Sensation,Tone, Cognition,Bed Mobility, Transfers,Gait,Activity Tolerance Progress Towards Goals Progressing Toward Goals Assessment Summary Pt with good safety awareness with gait, pt with steady pacing and cues for step length and foot clearance. BP improved this session and pt BP after activity 125/71 (see mobility comments for all BP's ). Pt denied dizziness but c/ o numbness across cheek bones. Goals Bed Mobility Goal Independent Transfer Goal Independent,Front Wheeled Walker Gait Goal Independent,Front Wheel Walker Gait Distance 200 Other Goals up/down 1 steps using FWW SBA Days to Meet Goals 5 Frequency of Treatment Frequency Of Treatment Once a Day Treatment Plan Physical Therapy Treatment Plan Bed Mobility Training,Transfer Training,Gait Training, Therapeutic Exercise,Balance Retraining,Discharge Planning, Hot or Cold Pack,Neuromuscular Re-ed,Coordination Retraining Other Recommendations and Next Treatment ambulation; check orthostatic Focus BP, stairs (1 step with FWW) Recommendations To Nursing Amount of Assist Needed 1 Person Assist Discharge Recommendations PT Discharge Recommendations Home with 09/09 Assist,Home Health Transportation Needs at Discharge Private Vehicle
--- NOTE | 2019-08-31 12:16 | PM.PN.1 ---
Subjective Subjective Date Patient Seen: 08/31/19 Time Patient Seen: 12:16 Interval history: Mr. st is a 79-year-old male who was admitted to the hospital for syncopal episode. During the patient's evaluation with Occupational therapy he was found to be markedly orthostatic with sitting and standing. Orthostatic vital signs today still show signficiant orthostasis upon standing, but he is improved symptomatically. Patient indicates he continues to be dizzy with standing but somewhat improved today. His selegiline has been discontinued. The patient's propanolol was discontinued. His midodrine was increased to 10 mg 4 times daily. Will continue to monitor his blood pressure and dizziness closely and continue Physical therapy. Exam Vital Signs (past 8 hours): - 08/31/19 04:55 08/31/19 06:00 08/31/19 08:00 Temperature 97.9 F 97.0 F L Pulse Rate 61 70 Pulse Rate [Orthostatic Lying] 58 L Pulse Rate [Orthostatic Sitting] 68 Pulse Rate [Orthostatic Standing] 75 Respiratory Rate 16 18 Blood Pressure 125/63 145/75 H Blood Pressure [Orthostatic Lying] 121/74 Blood Pressure [Orthostatic Sitting] 94/56 L Blood Pressure [Orthostatic Standing] 144/56 H Pulse Oximetry 98 96 08/31/19 09:35 08/31/19 11:49 Temperature 97.7 F Pulse Rate 74 Pulse Rate [Orthostatic Lying] 70 Pulse Rate [Orthostatic Sitting] 72 Pulse Rate [Orthostatic Standing] 88 Respiratory Rate 16 Blood Pressure 125/71 Blood Pressure [Orthostatic Lying] 116/63 Blood Pressure [Orthostatic Sitting] 102/57 L Blood Pressure [Orthostatic Standing] 105/42 L Pulse Oximetry 98 Oxygen Delivery Method Room Air Oxygen Flow Rate 0 Narrative Exam Narrative: Gen: Pleasant gentleman lying comfortably in no obvious distress Lungs: Clear to auscultation bilaterally with no wheezes, rhonchi, rales. Cardiac exam: Regular rate and rhythm normal S1-S2, no murmur Abdomen: Soft nontender nondistended Extremities: No edema or cyanosis Objective Labs Result Diagrams: 08/29/19 05:05 08/29/19 05:05 Assessment & Plan Assessment & Plan narrative: 1. Syncopal episode -most likely related to orthostatic hypotension secondary to parkinson's disease. -will discontinue selegiline given his symptoms started after initiation of this medication. Known side effect is dizziness and or fainting. -will increase midodrine 10 mg q.6 hours and recheck orthostatic, need to monitor for hypertension as well -MRI obtained no evidence of acute CVA -TTE showing EF of 50-55% with more obvious wall motion abnormalities compared to prior study 6 years ago. Patient without chest pain. -continue physical therapy and occupational -will continue to monitor orthostatic vital signs 2. Parkinson's disease, chronic, present on admission -continue home dose of carbidopa levodopa 50/200 1 tab at 9:00 a.m., 1300, 1700, and 2200 -continue home dose of entacapone 200 mg taken with his carbidopa levodopa -discontinue selegiline -will discontinue propanolol 3.CAD, chronic -patient underwent a 3 vessel bypass approximately 20 years ago and subsequent stent placement in 3 vessels a year later - 4. Hyperlipidemia, chronic -continue pravastatin 20 mg p.o. at bedtime 5. Neurogenic bladder -Continue home dose of tamsulosin 0.4 mg po daily 6. Depression and anxiety, chronic -continue home dose of mirtazapine 45 mg p.o. at bedtime -Continue home dose of levomefolate calcium 15 po daily -Continue home dose of citalopram 20 mg po daily -Continue clonazapam 1 mg po bid 7. Insomnia, chronic Continue home dose of melatonin 10 mg, auto subbed to 9 mg at bedtime 8. Neurocognitive condition, not specified -Continue home dose of donepezil 10 mg po at bedtime After discontinuation of the selegiline and initiation of midodrine as well as discontinuation of propanolol will continue to monitor orthostatic vital signs. In addition will continue with physical therapy and occupational therapy. Once the patient's blood pressure stabilized and he is no longer dizzy with standing anticipate discharge home with home health PT and OT. Anticipate discharge in the next 24-48 hours. Code: Full DVT: Lovenox daily.
--- NOTE | 2019-08-31 12:25 | CM.DPC ---
DCP Cont: Discussed patient during team rounds. was at bedside. It was also noted that patient had some confusion during the night, and into the morning. According to recent note, had indicated that this has happened at home as well. Hospitalist will give patient another day of IV antibiotics, and anticipate discharge home tomorrow. Was explained in room with present as well. During rounds, patient was alert and oriented. Confirmed with and patient that [facility] will be notified upon discharge. P: DCP to continue to follow. Patient could most likely discharge tomorrow with [facility] RN, P.T, and O.T. Loli Trejo RN/Thin Film Technician
[2019-08-31] MEDS: MELATONIN 3 MG TABLET 9 MG PO (21:25)
[2019-08-31] MEDS: MIRTAZAPINE 15 MG TABLET 45 MG PO (21:26)
[2019-08-31] MEDS: PRAVASTATIN 20 MG TABLET PO (21:26)
[2019-08-31] MEDS: DONEPEZIL 5 MG TABLET 20 MG PO (21:27)
--- NOTE | 2019-08-31 22:51 | PC.NURSE ---
PATIENT VERY AGITATED WITH STAFF FOR WALKING OUTSIDE HIS ROOM, BULMARO COTOTN UPDATED OF PATIENTS BEHAVIOR,
[2019-09-01] VITALS: BP 140/74; PULSE 67; RESP 12; O2SAT 97
[2019-09-01] MEDS: LORazepam 0.5 MG TABLET PO (02:02)
[2019-09-01 02:19] VITALS: TEMP 36.4
--- NOTE | 2019-09-01 02:22 | PC.NURSE ---
Addendum entered by Chio Silva R.N. 09/01/19 05:22: At 0345 patient again became agitated and insisting that he needed to go home to see his dog and was unwilling to stay. Stated he would walk home or could get a ride from his cousin. Verbally aggressive and swearing. At one point had belonging in his hand and threw them down onto floor with force. Philippe CHAMBERLAIN, spent 90 minutes in room talking with patient and now patient agreeable to stay again after being assured his discharge is anticipated to be around 1100. Original Note: Patient agitated at shift change. Is dressed and was insisting he was going home. Philippe CHAMBERLAIN, in room talking with patient and was able to get him to calm down. When assessed at 0022 patient was calm and cooperative. He was oriented only to self, birthdate and day of week. Breath sounds CTA with RA sat of 97%. HRR but BP elevated at 140/74. Denied nausea. BT hypoactive but states he has been passing flatus. Using urinal to void; denies dysuria. Is able to turn himself in bed. For safety when out of bed uses walker with 1 assist. Denied pain. Refuses SCD's. Fall risk score is high and bed alarm is on as well as 1:1 caregiver being provided. At 0130 patient told ELECT[employer]ICIAN [employer] he was wanting to take the pill the doctor was talking about. Philippe CHAMBERLAIN informed and order received for po Ativan which was given at 0200 after pharmacy verification.
[2019-09-01 05:21] VITALS: BP 126/75; PULSE 67; RESP 15
[2019-09-01] MEDS: MIDODRINE HCL 5 MG TABLET 10 MG PO ×2 (05:42→13:14)
[2019-09-01] MEDS: PANTOPRAZOLE 20 MG TABLET PO (06:45)
[2019-09-01 07:29] VITALS: BP 150/76; PULSE 63; RESP 16; TEMP 36.1; O2SAT 96
--- NOTE | 2019-09-01 07:31 | PC.NURSE ---
Patient is currently calm but agitated. Not wanting to be here, misses his dog. Claims his has not been here. Doesn't recall her being here everyday ( through Friday) to visit. Patient is currently fully dressed and would readily leave if he could.
[2019-09-01 08:15] VITALS: BP 124/61; BP 146/78; BP 171/84; PULSE 101; PULSE 70; PULSE 87
--- NOTE | 2019-09-01 09:00 | PM.DS.1 ---
History of Present Illness History of Present Illness Date Patient Seen: 09/01/19 Time Patient Seen: 09:00 Chief complaint: fell Narrative: As per BULMARO English: Angelica is a 79-year-old male with parkinsonian syndrome, hyperlipidemia, and coronary artery disease fell at home today. His is in the room and gave part of the history. He apparently was confused, had difficulties word-finding, the patient stated that he felt like he blacked out and when he came to was not able to see initially. stated that he skipped his carbidopa levodopa late afternoon and evening doses. Patient denies fevers sweats or chills, he did mention a very temporary loss of vision, he was noted to be word finding, denies chest pain he states he has chronic shortness of breath ever since the bypass surgery approximately 20 years ago he has urinary frequency, and has cold feet all the time. He does state that he has had easy bruising which is also chronic. The patient has a history of a 3 way bypass approximately 20 years ago followed by stents the following year and sees Dr. Naranjo at [facility] in his cardiology group. His neurologist is Dr. Garg at [place]. In the emergency department they did a head CT which was negative for any acute process. Current vital signs are temperature of 97.8?, blood pressure 113/60, heart rate of 55, respiratory rate of 16, oxygen saturation 97% on room air, he is 70.3 kilos with a BMI of 25%. He was able to pass a nursing swallow evaluation and is eating normal meals and drinking fluids. WBC is 9.4, RBC 4.25, hemoglobin 13.5, hematocrit 39.8, platelet count 146, sodium is 137, potassium 4.3, chloride 106, CO2 27, BUN 26, creatinine 1.12, GFR is greater than 60, calcium is 9.7, and troponin 0.012, COVID-19 negative and urine toxicology was negative. Discharge Providers Provider Date of admission: 08/29/19 11:15 Discharge Date: 09/01/19 Primary care physician: Raoul Salguero MD Consults: 08/27/19 18:39 Consult to Dietitian, Adult Routine Comment: Reason For Exam: BMI elevated Consult to PAEDIATRIC PHYSIOTHERAPIST - Glass Novelty Maker Routine Comment: would like to start home PT/OT post discharge. 08/27/19 21:39 Consult to Occupational Therapy Evaluate & Treat Comment: Syncopal episode, confusion, visual changes Physician Instructions: Evaluate and treat 08/27/19 21:40 Consult to Physical Therapy Evaluate & Treat Comment: Has Parkinsons Physician Instructions: Eval and treat Syncopal episode, confusion, visual Consult to Speech Therapy Evaluate & Treat Comment: Syncopal episode, confusion, visual changes Physician Instructions: Evaluate and treat 08/29/19 10:23 Consult to Home Health Routine Comment: Brenda is primary contact Reason For Exam: RN/PT/OT Discharge provider: Jesus Jamil DO Summary Hospital Course Discharge Diagnosis: Please see hospital course by problem list noted below: Hospital Course: Binu Dominguez is a 79-year-old male with past medical history of CAD, Parkinson's disease, hyperlipidemia, and depression who presented after syncopal episode. He was profoundly orthostatic on admission And this is the likely etiology of his syncope. MRI showed no evidence of acute CVA, an echocardiogram showed a normal ejection fraction without significant valvular pathologies. Patient was started on midodrine, ultimately needed to be maxed out at 10 mg t.i.d. to improved symptoms. He remained orthostatic, with blood pressures dropping upwards of 50 point upon standing, however he was asymptomatic upon discharge. I do recommend that he follow-up with his neurologist, Dr. Garg, as an outpatient for further medication management. The patient also developed symptoms of delusions, which may be progressive Parkinson's disease, or a hospital induced delirium. I do suspect that this will improve once he is back in his home environment and routine, but the patient should follow-up with his neurologist as he may require further medication management as an outpatient. 1. Syncopal episode -most likely related to orthostatic hypotension secondary to parkinson's disease. -recommended discontinuation of selegiline given his symptoms started after initiation of this medication. Known side effect is dizziness and or fainting. -increased midodrine to 10 mg TID and patient remained orthostatic, hypertensive at rest but normotensive upon standing and minimally symptomatic. -MRI obtained no evidence of acute CVA -TTE showing EF of 50-55% with more obvious wall motion abnormalities compared to prior study 6 years ago. Patient without chest pain. No significant valvular pathologies. -seen by PT and OT. Discharged home with home health. 2. Parkinson's disease, chronic, present on admission -continue home dose of carbidopa levodopa 50/200 1 tab at 9:00 a.m., 1300, 1700, and 2200 -continue home dose of entacapone 200 mg taken with his carbidopa levodopa -discontinue selegiline as noted above -will discontinue propanolol given orthostasis. 3.CAD, chronic -patient underwent a 3 vessel bypass approximately 20 years ago and subsequent stent placement in 3 vessels a year later -continue home medications. 4. Hyperlipidemia, chronic -continue pravastatin 20 mg p.o. at bedtime 5. Neurogenic bladder -Continue home dose of tamsulosin 0.4 mg po daily. 6. Depression and anxiety, chronic -continue home dose of mirtazapine 45 mg p.o. at bedtime -Continue home dose of levomefolate calcium 15 po daily -Continue home dose of citalopram 20 mg po daily -Continue clonazapam 1 mg po bid 7. Insomnia, chronic Continue home dose of melatonin 10 mg, auto subbed to 9 mg at bedtime 8. Neurocognitive condition, not specified -Continue home dose of donepezil 10 mg po at bedtime Dispo: Discharged home with home health. Exam Vital Signs (past 8 hours): - 09/01/19 02:19 09/01/19 05:21 09/01/19 07:29 Temperature 97.6 F 97.0 F L Pulse Rate 67 63 Pulse Rate [Orthostatic Lying] Pulse Rate [Orthostatic Sitting] Pulse Rate [Orthostatic Standing] Respiratory Rate 15 16 Blood Pressure 126/75 150/76 H Blood Pressure [Orthostatic Lying] Blood Pressure [Orthostatic Sitting] Blood Pressure [Orthostatic Standing] Pulse Oximetry 96 09/01/19 08:15 Temperature Pulse Rate Pulse Rate [Orthostatic Lying] 70 Pulse Rate [Orthostatic Sitting] 87 Pulse Rate [Orthostatic Standing] 101 H Respiratory Rate Blood Pressure Blood Pressure [Orthostatic Lying] 171/84 H Blood Pressure [Orthostatic Sitting] 146/78 H Blood Pressure [Orthostatic Standing] 124/61 Pulse Oximetry Oxygen Delivery Method Room Air Oxygen Flow Rate 0 Narrative Exam Narrative: Pleasant gentleman lying comfortably in no obvious distress Lungs: Clear to auscultation Cardiac exam: Regular rate and rhythm normal S1-S2 with a 2/6 systolic ejection murmur Abdomen: Soft nontender nondistended Extremities: No edema Objective Labs Result Diagrams: 08/29/19 05:05 08/29/19 05:05 Discharge Plan Discharge Plan Patient Disposition: Home Health Service Transfer to: [facility] Discharge comment: You were admitted to the hospital with orthostatic hypotension, likely due to parkinson's disease or a side effect of one of the medications. Blood pressure continued to fall on midodrine, but symptoms improved. For now continue midodrine and I do recommend follow up with your neurologist, Dr. Garg, to discuss further medications and to recheck delusion symptoms once back into the home routine. Discharge orders & Medications Prescriptions: New midodrine 10 mg tablet 10 mg PO TID 30 Days Qty: 90 RF: 0 Continued carbidopa-levodopa 50-200 mg tablet extended release 1 tab PO QID 90 Days RF: 0 donepezil 10 mg tablet 20 mg PO BEDTIME 90 Days RF: 0 melatonin 10 mg capsule 10 mg PO BEDTIME PRN (Reason: Insomnia) RF: 0 levomefolate calcium 15 mg tablet 15 mg PO DAILY Qty: 90 RF: 3 entacapone 200 mg tablet 200 mg PO QID RF: 0 pravastatin 20 mg tablet 20 mg PO BEDTIME Qty: 90 RF: 1 omeprazole 20 mg capsule,delayed release(DR/EC) 20 mg PO DAILY Qty: 90 RF: 1 citalopram [Celexa] 20 mg tablet 20 mg PO QDAY Qty: 90 RF: 2 clonazepam 1 mg tablet 1.5 mg PO BID Qty: 270 RF: 2 mirtazapine 45 mg tablet 45 mg PO BEDTIME Qty: 90 RF: 2 tamsulosin 0.4 mg capsule 0.4 mg PO DAILY Qty: 90 RF: 1 magnesium 250 mg Tablet 500 mg PO BEDTIME RF: 0 senna 8.6 mg Capsule 8.6 mg PO BEDTIME RF: 0 Ginko Biloba 120 mg PO DAILY RF: 0 Discontinued selegiline HCl 5 mg capsule 5 mg PO BID RF: 0 propranolol 10 mg tablet 10 mg PO BID Qty: 180 RF: 1 Follow up/Referrals: Raoul Salguero MD [Primary Care Provider] - Josephine Garg MD [Non-Staff] - (parkinsons disease with orthostatic hypotension, devleoped delusions while admitted. Patient follows with Dr. Garg) Diet/Activity/Treatments Diet: Diet as Tolerated Activity: As tolerated, stand slowly, no sudden or rapid movements. Discharge Data Primary Care Provider: Raoul Salguero
--- NOTE | 2019-09-01 09:12 | PC.NURSE ---
arrived, currently helping him and encouraging him to eat his breakfast. He had refused to eat earlier.
[2019-09-01] MEDS: CARBIDOPA-LEVODOPA ER 50/200 TABLET 1 EACH PO ×2 (09:40→13:14)
[2019-09-01] MEDS: TAMSULOSIN 0.4 MG CAPSULE PO (09:40)
[2019-09-01] MEDS: ENTACAPONE 200 MG TABLET PO ×2 (09:40→13:14)
[2019-09-01] MEDS: CITALOPRAM 20 MG TABLET PO (09:40)
[2019-09-01] MEDS: clonazePAM 0.5 MG TABLET 1.5 MG PO (09:40)
[2019-09-01] MEDS: polyethylene glycoL 3350 17 GM POWD.PACK PO (09:41)
[2019-09-01] MEDS: ENOXAPARIN 40 MG/0.4 ML SYRINGE SUBCUT (09:41)
[2019-09-01] MEDS: SODIUM CHLORIDE 0.9% FLUSH 10 ML IV (09:42)
--- NOTE | 2019-09-01 10:21 | PT.IPTN ---
Current Diagnoses Syncope and collapse (08/29/19) Physical Therapy Treatment Note M2 PT-IP Current Condition Start: 08/28/19 14:47 Freq: NEEDED Status: Active Protocol: Document 08/28/19 13:30 AB (Rec: 08/28/19 15:09 AB [id number]) Physical Therapy Current Condition Current Condition Evaluation Date 08/28/19 Treatment Diagnosis syncope; PD; difficulty in walking Onset Date 08/27/19 Precautions Other Precautions orthostatic BP; falls M3 PT-IP Subjective Start: 08/28/19 14:47 Freq: NEEDED Status: Active Protocol: Document 09/01/19 09:49 SP (Rec: 09/01/19 13:08 SP [id number]) Subjective Physical Therapy Visit Type Type Treatment Note Visit Start Time 09:49 Visit Stop Time 10:21 Total Visit Minutes 32 Notes in room and completed caregiver training during tx. Number of SURVEY DIRECTOR Visits 2 Physical Therapy Visit Comments Patient Comments Pt willing to participate with therapy Therapy Pain Assessment Pain Present Pain Present Denied Pain M4 PT-IP Mobility and Gait Start: 08/28/19 14:47 Freq: NEEDED Status: Active Protocol: Document 09/01/19 09:49 SP (Rec: 09/01/19 13:08 SP [id number]) PT-Transfer Assessment Sit to and From Stand Sit to and from Stand Contact Guard Assistance,1 Person Assistance,Use of Upper Extremities Equipment Transfer Assistive Device Gait Belt,Front Wheeled Walker Orthotic/Prosthetic Devices or Brace: No Transfers Transfer Destination Chair,Wheelchair Transfer Technique ambulated with FWW Transfer Ability Level of Assist Contact Guard Assistance,1 Person Assistance,Use of Upper Extremities Comments Mobility Comments Pt was seated on bench with when arrived, GRAIN SACKER was outside room 1:1 standby observation for safety. Sit to stand with cuing for pushing from bench transition to standing, initally needed to sit back down due to decreased activity tolerance, 2 min then stood and walked to w/c in hallway approx 15 ft with support of CGA using FWW. SURVEY DIRECTOR wheeled patient down to stairs. Pt was able to ascend 3 stairs using R HR CGA- Min supported for balance lean to R by using gait belt ( stated will have handle at home installed before arriving at home but usually uses R UE on wall for balance PLOF) for self support. Pt was able to walk in hallway approx 50 ft after stair mgt using FWW CGA by , occasional cuing to for under hand support on belt for safety standing balance guidance then needed seated rest in w/c secondarty to decreased activity tolerance and strength. Pt was able to walk further into room when returned approx 10 ft using FWW then step pivot to sit back onto bench with CHILKOOT and verbal cuing for reaching back prior to sitting for slow graded descent to sit safely. gave good cuing and education with regard to safety hand placement during sit<> stand transfers and positioning of FWW. Pt was seated next to on bench in room when left, all needs in reach. GRAIN SACKER was outside room 1:1 standby for safety due to no call light or alarm in reach. Gait Assessment Gait Gait Assistance Required: Contact Guard Assist,1 Person Assist Distance (Feet) 50 Assistive Devices Assistive Device Gait Belt,Front Wheeled Walker Orthotic/Prosthetic Devices or Brace: No Gait Deviations General Gait Pattern Antalgic,Decreased Stride Length,Decreased Feet Clearance,Flexed Trunk,Narrow Based Gait Factors Limiting Gait Function Factors Limiting Gait Function Decreased Activity Tolerance, Decreased Strength,Poor Balance,Poor Safety Awareness Comments Gait Comments See mobility comments. Improved step length step over step but little unsteady required CGA using FWW adn w/c follow due to decreased strength and activity tolerance. Stair Climbing Assessment Evaluation Level of Assist On Stairs Contact Guard Assistance, Minimal Assistance,1 Person Assistance Devices Stair Climbing Assistive Devices Right Railing Technique/Endurance Stair Climbing Direction Ascend and Descend Stair Climbing Technique Step Over Step,Step to Step Number of Steps Climbed 3 Stair Climbing Set # Repetitions (reps) 1 Comments Stair Climbing Comments See mobility comments, step to patterning ascending, step over step descending but required increased support, recommended step to gait for safety and decreased risk of LE buckling. Pt and commented that uses wall on R for support to ascend/descend 2 stairs but will install handle for support before returns home. Pt places FWW on the top 2nd step (not very steep) before ascending. PT-Balance Assessment Sitting Balance and Reactions Static Sitting Balance Ability Normal Dynamic Sitting Balance Ability Good Standing Balance and Reactions Static Standing Balance Ability Fair Dynamic Standing Balance Ability Fair Device Used FWW M5 PT-IP Objective Assessments Start: 08/28/19 14:47 Freq: NEEDED Status: Active Protocol: Document 07/11/20 13:30 AB (Rec: 08/28/19 15:09 AB [id number]) Orientation Orientation/Cognition Level of Alertness Alert Orientation Name Language Function Ability Hard of Hearing Safety Awareness Decreased Safety Awareness Memory Description Short Term Impaired Gross Range of Motion Lower Extremity ROM Assessment Within Functional Limits Strength Lower Extremity Strength Assessment Within Functional Limits M6 PT-IP Treatment Start: 08/28/19 14:47 Freq: NEEDED Status: Active Protocol: Document 09/01/19 09:49 SP (Rec: 09/01/19 13:08 SP [id number]) Physical Therapy Treatment Education Education Provided Safety M7 PT-IP Assessment and Plan Start: 08/28/19 14:47 Freq: NEEDED Status: Active Protocol: Document 09/01/19 09:49 SP (Rec: 09/01/19 13:08 SP [id number]) PT Summary Assessment and Plan Potential Rehabilitation Potential Good Status of Condition at Evaluation Stable Summary Impairments Pain,ROM,Strength,Balance, Coordination,Sensation,Tone, Cognition,Bed Mobility, Transfers,Gait,Activity Tolerance Progress Towards Goals Progressing Toward Goals Assessment Summary Pt required cuing for proper hand placemetn during sit to stands for slow descent to sit CGA- Min by . Pt denied dizziness. Pt is ok to return home with for assistance when medically stable. PT recommending home health PT to improve strength, balance and increase functional mobility. Goals Bed Mobility Goal Independent Transfer Goal Independent,Front Wheeled Walker Gait Goal Independent,Front Wheel Walker Gait Distance 200 Other Goals up/down 1 steps using FWW SBA Days to Meet Goals 5 Frequency of Treatment Frequency Of Treatment Once a Day Treatment Plan Physical Therapy Treatment Plan Bed Mobility Training,Transfer Training,Gait Training, Therapeutic Exercise,Balance Retraining,Discharge Planning, Hot or Cold Pack,Neuromuscular Re-ed,Coordination Retraining Other Recommendations and Next Treatment ambulation; Focus Recommendations To Nursing Amount of Assist Needed 1 Person Assist Discharge Recommendations PT Discharge Recommendations Home with 09/09 Assist,Home Health Transportation Needs at Discharge Private Vehicle
--- NOTE | 2019-09-01 11:00 | OT.IP.TRT ---
Current Diagnoses Syncope and collapse (08/29/19) Occupational Therapy Treatment Note M2 OT-IP Current Condition Start: 08/28/19 13:06 Freq: Status: Active Protocol: Document 08/28/19 13:07 CGR (Rec: 08/28/19 13:23 CGR [email or web address]) Occupational Therapy Current Condition Current Condition Evaluation Date 08/28/19 Treatment Diagnosis Fall at home Diagnosis Onset Date 08/27/19 M3 OT- IP Subjective and Pain Start: 08/28/19 13:06 Freq: Status: Active Protocol: Document 09/01/19 11:10 CCC (Rec: 09/01/19 11:16 CCC [email or web address]) OT- Subjective Occupational Therapy Visit Type Type Treatment Note Visit Start Time 10:52 Visit Stop Time 11:00 Total Visit Minutes 8 Occupational Therapy Visit Comments Patient Comments Pt's present in the room and pt asleep. Patient/Caregiver Goals To go home. M4 OT- IP ADL's Start: 08/28/19 13:06 Freq: Status: Active Protocol: Document 09/01/19 11:10 CCC (Rec: 09/01/19 11:16 CCC [email or web address]) OT ADL-Bathing Comments OT Bathing Comments Pt states does have a shower chair at home for pt to use and has good understanding may now have to provide some assist for needs pending how pt does from day to day. Pt's aware that pt is best off to have a structured routine to follow. Pt states will put an extra chair in the bathroom so pt able to sit if needed as the bathroom is large in size . Pt's not wanting pt to shower at this time for fear of getting him too tired as being discharged later. M5 OT- IP IADL's Start: 08/28/19 13:06 Freq: Status: Active Protocol: Document 08/28/19 13:07 CGR (Rec: 08/28/19 13:23 CGR [email or web address]) OT-Instrumental Activities of Daily Living Deficits IADL Deficits Identified No Deficits Home Safety Awareness Awareness of Need for Assistance at Home Good Awareness Ability to Problem Solve Emergency Able to Problem Solve Situations Medication Management Medication Management No Deficits Identified Money Management Money Management No Deficits Identified Meal Preparation Meal Preparation No Deficits Identified Ecologist Technician Ecologist Technician No Deficits Identified . M7 OT- IP Mobility and Balance Start: 08/28/19 13:06 Freq: Status: Active Protocol: Document 09/01/19 11:10 [facility] (Rec: 09/01/19 11:16 [facility] [email or web address]) OT-Transfer Assessment Comments Mobility Comments Pt easily tired now and suggested at times may be best to use WC in the house at times. Document 09/01/19 11:10 [facility] (Rec: 09/01/19 11:16 [facility] [email or web address]) OT Summary Assessment and Plan Potential Rehabilitation Potential Excellent Analytic Complexity at Evaluation Low Summary OT Impairments Functional Cognition,Shower Transfers,Activity Tolerance Progress Towards Goals Progressing Toward Goals Assessment Summary Pt to go home with and able to suggest to have a monitor for pt in the bedroom as they do not sleep together, possible use of wc if needed in the house, have pt follow a set routine, and to proved assist as needed. Pt looking to go home later today. Goals Bathing Goal Independent Shower Transfer Goal Independent Days to Meet Goals 1 Frequency of Treatment Frequency Of Treatment Once a Day Treatment Plan OT Treatment Plan ADL Training,Functional Cognition Training,Patient/ Family Education,Discharge Planning Other Treatment Recommendations and Next Shower if still here Treatment Focus Discharge Recommendations OT Discharge Recommendations Home with Assistance Transportation Needs at Discharge Private Vehicle
--- NOTE | 2019-09-01 11:54 | CM.DPC ---
DCP continued: EMR reviewed: CM/RN sent D/C summary to [facility] MALHOTRA Called and spoke with Florencia who will follow up with patient tomorrow to set up appointments. CM/Rn met with patient and patients at the bedside and explained role. Patient was sleeping and patients stated that she would like his prescriptions sent over to [facility] CM/RN spoke with Hospitalist and he stated he sent it over this morning. Patients updated and she is planning on going getting prescriptions then bringing patient home after. RN notified Irene Urbina RN
--- NOTE | 2019-09-01 13:24 | ST.IPSCREEN ---
Pt not seen for treatment today. He was sleeping with untouched lunch tray on bedside table. Pts was en route to pick him up and t mauricio him home. Discharging today.
--- NOTE | 2019-09-01 15:38 | PC.NURSE ---
[id number] Discharge instructions and home care handouts reviewed with patient and his . His states understanding of medications, follow up and home care and has no further questions or concerns at this time. IV removed intact. Patient escorted out by ELECTRICAL ENGINEERING DRAFTING OFFICER via wheelchair with all belongings to be discharged to home with his and home health as ordered.
== END 2019-09-01 14:00 | disposition home health service (06) | DRG 312 ==
LOC: ED 16:03 → AC 17:59
PROVIDERS: Nurse Practitioner Family; Admitting Provider Internal Medicine; Emergency Provider Emergency Medicine; PCP Student in an Organized Health Care Education/Training Program; Referring Provider Emergency Medicine; Visit Provider Internal Medicine
DX: I95.1 Orthostatic hypotension (principal); G20 Parkinson's disease; N31.9 Neuromuscular dysfunction of bladder, unspecified; E78.5 Hyperlipidemia, unspecified; I25.10 Atherosclerotic heart disease of native coronary artery without angina pectoris; G47.00 Insomnia, unspecified; F32.9 Major depressive disorder, single episode, unspecified; F41.9 Anxiety disorder, unspecified; T42.8X5A Adverse effect of antiparkinsonism drugs and other central muscle-tone depressants, initial encounter; W18.30XA Fall on same level, unspecified, initial encounter; Z11.59 Encounter for screening for other viral diseases
CPT/HCPCS: 36415; 70450; 70548; 70553; 80048; 80053; 80061; 80305; 83735; 84443; 84484; 85025; 85610; 85730; 87635; 92523; 93005; 93010; 93306; 96360; 96361; 97110; 97116; 97129; 97130; 97162; 97165; 97530; 97535; 99285; G0378; A9579; J1650

== ENCOUNTER 2019-09-13 23:35 | Observation (INO) | payer MEDICARE, OTHER, SELFPAY ==
[2019-08-27 18:12] VITALS: BMI 25.0
--- NOTE | 2019-09-13 23:33 | DI.CT.S_ITS ---
PROCEDURE: CT STROKE INDICATIONS: STROKE TECHNIQUE: Noncontrast 4.5 mm thick angled axial sections acquired from the foramen magnum to the vertex, with coronal reformats. For radiation dose reduction, the following was used: automated exposure control, adjustment of mA and/or kV according to patient size. COMPARISON: None. FINDINGS: Image quality: Excellent. CSF spaces: Basal cisterns are patent. No extra-axial fluid collections. The ventricles are symmetric in size and shape. Brain: No intracranial bleeds or masses. There is cerebral volume loss for age, with resultant ventricular and sulcal prominence. There are periventricular and deep white matter chronic small vessel ischemic changes. There is intracranial internal carotid artery and vertebral artery atherosclerosis. Skull and face: Calvarium and visualized facial bones appear intact, without suspicious lesions. Sinuses: Visualized sinuses and mastoids are clear. IMPRESSION: No acute intracranial disease process. This study fulfills neurological imaging criteria for inclusion or exclusion of acute stroke therapies based on available published neurological guidelines. Dictated by: Flori Henderson MD, PhD on 09/14/2019 at 7:17 Approved by: Flori Henderson MD, PhD on 09/14/2019 at 7:18
--- NOTE | 2019-09-13 23:33 | DI.CT.S_ITS ---
PROCEDURE: CT ANGIO HEAD AND NECK INDICATIONS: Stroke TECHNIQUE: Pre-contrast 4.5 mm thick sections acquired from the foramen magnum to the vertex. After the administration of intravenous contrast, 1 mm thick sections acquired from the aortic arch through the [place]. Post-contrast 4.5 mm thick sections then re-acquired from the foramen magnum to the vertex. 3-dimensional iwblfut-svmbgwdmh-upnsaouqir (MIP) and/or volume rendering reformats were acquired of the central intracranial vasculature and neck separately. COMPARISON: [facility], CT, CT STROKE, 09/13/2019, 23:30. [facility], MR, MR STROKE, 08/28/2019, 9:04. [facility], CT, CT HEAD/BRAIN WO CON, 08/27/2019, 13:13. FINDINGS: Image quality: Excellent. BRAIN: CSF spaces: Ventricles are normal in size and shape. Basal cisterns are patent. No extra-axial fluid collections. Brain: No midline shift. No intracranial bleeds or masses. [place]men[place]-white matter interface appears intact. Skull and face: Calvarium and facial bones appear intact, without suspicious lesions. Orbits appear normal. Sinuses: Sinuses and mastoids are clear. HEAD CT ANGIOGRAPHY: Anterior circulation: Intracranial internal carotid arteries are normal in flow. Atherosclerotic calcifications noted in the cavernous and clinoid segments of the internal carotid arteries bilaterally which causes multifocal [id number]-[id number] stenoses. The flow within the paired anterior cerebral arteries is normal and symmetric. The flow within the middle cerebral arteries is normal and symmetric. The anterior communicating artery is seen. No aneurysms are seen. Posterior circulation: Visualized portions of the vertebral arteries demonstrate normal caliber, and join to form a normal appearing basilar artery. Flow within the posterior cerebral arteries is normal and symmetric. No aneurysms are seen. Dural sinuses demonstrate normal postcontrast enhancement. NECK CT ANGIOGRAPHY: Carotid system: The great vessels demonstrate a conventional anatomy as they arise from the aortic arch. The origins of the common carotid arteries appear patent. The common carotid arteries demonstrate normal caliber and courses. Atherosclerotic calcifications noted in the origins of the internal carotid arteries bilaterally which causes less than 50% stenosis. Posterior circulation: The origins of the vertebral arteries both appear widely patent. The more superior extracranial portions of both vertebral arteries also demonstrate normal courses and calibers. They join to form a normal appearing basilar artery. Soft tissues: Visualized neck soft tissues demonstrate no suspicious abnormalities. Patulous, fluid filled upper thoracic esophagus noted. Bones: No suspicious bony lesions. Spine degenerative disc disease and facet arthropathy. Visualized cervical spine appears normally aligned. IMPRESSION: 1. No acute intracranial disease process. 2. No large vessel occlusion, hemodynamically significant vascular stenosis, vascular dissection or aneurysm. 3. Patulous, fluid-filled upper thoracic esophagus. Distal esophageal stricture/mass cannot be excluded. Recommend endoscopy or barium contrasted esophagram for further evaluation. Any quantitative measurements of stenosis were performed using NASCET criteria. Dictated by: Flori Henderson MD, PhD on 09/14/2019 at 8:19 Approved by: Flori Henderson MD, PhD on 09/14/2019 at 8:24
[2019-09-13 23:36] VITALS: BP 156/70; PULSE 104; RESP 20; TEMP 37; O2SAT 100; BMI 24.2
--- NOTE | 2019-09-13 23:36 | ED_ITS ---
HPI - Neuro Symptoms/Deficit General Chief Complaint: Neuro Symptoms/Deficit Stated Complaint: Confusion Time Seen by Provider: 09/13/19 23:35 History of Present Illness HPI Narrative: 79M with history of Parkinson's, CAD, and hyperlipidemia presents by EMS with his due to episodes of confusion and trouble with speech since about 1700 today. He was recently admitted here under relatively similar circumstances and had MRI that suggested against stroke. His symptoms were thought to be likely to orthostatic hypotension as a consequence of his Parkinson's and his Selegeline was DCd as symptoms seemed to be somewhat related to the initiation of that medication. states that he was normal when she left at 0900 today after she had given him his meds. He then was seemingly norm al as he had both PT and OT appointments at the house today, second of those two visits was at 1530 and she states that visit was 1 hour at the most. returned home for 5pm medications and states he was confused, couldn't follow commands and was speaking gibberish as well as being rather excitable. She states he was extending his fingers and toes oddly which is new for him. No new injuries or falls noted. He was transported via EMS and arriaved at about 2330 and was activated as CODE STROKE and taken directly to CT. His neurologist is Dr. Garg at [facility]. She states the only other time his vision was like this was the day he was admitted for his last visit. Onset (ago): hour(s) Last Observed Normal: 16:30 Timing confirmed by: caregiver Location: speech, left face, dysarthria and altered History of same: No Severity: moderate Relieving factors: none Exacerbating factors: none On Anticoagulants: No Associated symptoms: confusion Treatments Prior to Arrival: none Related Data Home Medications Medication Instructions Recorded Confirmed carbidopa ER 50 mg-levodopa 200 mg 1 tab PO QID 90 Days tab 01/13/18 09/09/19 tablet,extended release donepezil 10 mg tablet 20 mg PO BEDTIME 90 Days tab 01/13/18 09/09/19 melatonin 10 mg capsule 10 mg PO BEDTIME PRN 01/13/18 09/09/19 entacapone 200 mg tablet 200 mg PO QID 11/25/18 09/09/19 Ginko Biloba 120 mg PO DAILY 08/16/19 09/09/19 magnesium 500 mg PO BEDTIME 08/16/19 09/09/19 sennosides 8.6 mg capsule 8.6 mg PO BID cap 09/09/19 09/09/19 Previous Rx's Medication Instructions Recorded omeprazole 20 mg capsule,delayed 20 mg PO DAILY #90 cap 02/04/19 release pravastatin 20 mg tablet 20 mg PO BEDTIME #90 tab 02/04/19 citalopram 20 mg tablet 20 mg PO QDAY #90 tab 06/11/19 clonazepam 1 mg tablet 1.5 mg PO BID #270 tab 06/11/19 mirtazapine 45 mg tablet 45 mg PO BEDTIME #90 tab 06/11/19 tamsulosin 0.4 mg capsule 0.4 mg PO DAILY #90 cap 07/28/19 levomefolate calcium 15 mg tablet 15 mg PO DAILY #90 tab 07/29/19 midodrine 10 mg PO TID 30 Days #90 tab 09/01/19 Allergies Allergy/AdvReac Type Severity Reaction Status Date / Time No Known Drug Allergies Allergy Verified 09/09/19 15:09 Review of Systems Constitutional Constitutional: Denies chills, Denies fatigue, Denies fever(s), Denies frequent falls, Denies lethargy and Denies weakness Eyes Eyes: Denies change in vision, Denies eye discharge, Denies irritation and Denies loss of vision ENT Ears, Nose, Mouth, and Throat: Denies change in voice, Denies dizziness, Denies neck pain, Denies sore throat and Denies throat swelling Cardiovascular Cardiovascular: Denies chest pain, Denies irregular heart rhythm, Denies lightheadedness, Denies palpitations, Denies dyspnea, Denies dyspnea on exertion and Denies orthopnea Respiratory Respiratory: Denies cough, Denies dyspnea, Denies dyspnea on exertion and Denies wheezing Gastrointestinal Gastrointestinal: Denies abdominal pain, Denies change in bowel habits, Denies diarrhea, Denies nausea and Denies vomiting Musculoskeletal Musculoskeletal: Denies neck pain and Denies numbness Integumentary/Breasts Skin/Breast: Denies pruritus, Denies erythema, Denies rash and Denies wounds Neurologic Neurologic: Reports abnormal movements, Reports abnormal speech, Reports behavioral changes, Reports confusion, Denies dizziness, Denies frequent falls, Denies loss of vision, Denies numbness, Reports tremor(s) and Denies weakness Psychiatric Psychiatric: Denies anxiety, Reports behavioral changes, Reports confusion, Denies depression, Denies homicidal ideation and Denies suicidal ideation Endocrine Endocrine: Denies fatigue, Denies flushing and Denies palpitations Hematologic/Lymphatic Hematologic/Lymphatic: Denies easy bruising Allergic/Immunologic Allergic/Immunologic: Denies urticaria, Denies throat swelling and Denies wheezing Patient History Medical History Anxiety (Chronic) Arthritis (Chronic) Bilateral thigh pain (Chronic) Chicken pox (Resolved) Chickenpox (Resolved Unknown) Chronic back pain (Chronic 1965) Chronic fatigue (Chronic 2014) Colon polyps (Resolved 2009) Coronary artery disease (Chronic) Depression (Chronic 2015) Erectile dysfunction (Chronic) Foot pain (Chronic ~2017) Hiatal hernia (Chronic) Hiatal hernia (Chronic) Hypercholesterolemia (Chronic) Hypertension (Chronic) Mumps (Resolved Unknown) Mumps (Resolved) Panic attacks (Chronic) Parkinson's disease (Chronic 2014) Proximal muscle weakness (Chronic) Surgical History Anesthesia (Resolved) History of colonoscopy with polypectomy (Resolved 11/19/17) History of colonoscopy with polypectomy (Resolved 2009) History of tonsillectomy and adenoidectomy (Resolved) S/P CABG (coronary artery bypass graft) (Resolved 06/2003) Status post coronary artery bypass graft (Resolved) Status post tonsillectomy and adenoidectomy (Resolved) Family History Father CAD (coronary artery disease) CVA (cerebral vascular accident) Hypertension Diabetes mellitus Heart attack Brain cancer Mother Hypertension Dementia Grandmother Diabetes mellitus Grandfather No problems noted. Brother No problems noted. Sister No problems noted. Social History household members: spouse Smoking Status: Never smoker alcohol intake: former Smoking Status: Never smoker alcohol intake frequency: 0-2 drinks per day Substance Use Type: does not use Exam Narrative Exam Narrative: GENERAL: [79] year old patient appears stated age. Well- nourished, well-developed patient, in moderate distress. HEAD: Atraumatic. Normocephalic. EYES: Pupils unequal round but reactive (R - 3mm, L - 1mm). Extraocular motions intact. No scleral icterus. No injection or drainage. ENT: Nose without bleeding, purulent drainage. Throat without erythema, tonsillar hypertrophy or exudate. Airway patent. NECK: Trachea midline. Non tender CARDIOVASCULAR: Regular rate and rhythm without murmurs, gallops, or rubs. RESPIRATORY: Clear to auscultation. Breath sounds equal bilaterally. No wheezes, rales, or rhonchi. GASTROINTESTINAL: Abdomen soft, non-tender, nondistended. EXTREMITIES: No edema or joint tenderness. BACK: Nontender without deformity or crepitance. No flank tenderness. NEURO: Alert, confused. Tremulous. SKIN: No rash or erythema of visible areas Initial Vital Signs Initial Vital Signs: Vital Signs Temperature 98.6 F 09/13/19 23:36 Pulse Rate 104 H 09/13/19 23:36 Respiratory Rate 20 09/13/19 23:36 Blood Pressure 156/70 H 09/13/19 23:36 Pulse Oximetry 100 09/13/19 23:36 Scores NIH Stroke Scale Level of Conciousness: Alert, keenly responsive Ask month/age: Answers neither question correctly, aphasic, stuporous, coma Open/close eyes, close hand: Performs both tasks correctly Best gaze horizontal: Normal Visual jaquez: No visual loss Facial palsy: Minor paralysis, flattened nasolabial fold, asymmetry on smiling Left arm drift: No drift for full 10 sec Right arm drift: No drift for full 10 sec Left leg drift: No drift for full 10 sec Right leg drift: No drift for full 10 sec Limb ataxia: Absent Sensory on face/arms/legs: Normal, no sensory loss Best language: Severe aphasia, not much is understood, fragmented Dysarthria: Severe, unintelligible Extinction or inattention: No abnormality Total NIH Stroke scale score: 7 Course Orders Ordered: ED Orders 09/13/19 23:[address] angio head and neck Stat Urine Drug Screen, Rapid Stat EKG-12 Lead Stat 09/13/19 23:35 Basic Metabolic Panel Stat Complete Blood Count AUTO DIFF Stat Ethanol (ETOH) Stat Partial Thromboplastin Time Stat Prothrombin Time INR Stat 09/14/19 00:15 Urinalysis and Microscopic Stat Sodium Chloride (Normal Saline 0.9%) 1,000 mls @ 150 mls/hr IV CONT PHANI Last Admin: 09/14/19 00:18 Dose: 150 mls/hr Documented by: BRIGHT Reevaluation(s) Reevaluation #1: patient continuously complaining of need to urinate, but unable. Bedside bladder scan notes >500mL. [place] placed with significant relief. Reevaluation #2: Multiple attempts to reach primary neurologist at [facility], patient outside interventional window and no evidence of LVO. speech much more clear. Facial droop improved. Less confused. Call to Prov Stroke. Extensive discussion with Dr. Mason. Obviously outside of any interventional window. Also, no need to transfer tonight. Recommends admission h ere with repeat workup. We did discuss stroke vs. seizure vs. other neurologic diagnosis. Dr. Mason recommends consultation with his neurologist tomorrow, transfer if needed at a later time. Vital Signs Vital signs: Vital Signs - 8 hr 09/13/19 23:36 09/14/19 00:10 09/14/19 00:15 Temperature 98.6 F Pulse Rate 104 H 95 H 92 H Respiratory Rate 20 17 15 Blood Pressure 156/70 H 144/67 H Pulse Oximetry 100 100 98 09/14/19 00:30 Temperature 98.3 F Pulse Rate 90 Respiratory Rate 18 Blood Pressure 145/66 H Pulse Oximetry 98 MDM - Neuro Symptoms/Deficit Lab Data Result diagrams: 09/13/19 23:35 09/13/19 23:35 Labs: Lab Results 09/13/19 09/13/19 09/13/19 Range/Units 23:35 23:35 23:35 WBC 8.4 (4.5-11.0) X10^3/uL RBC 4.11 L (4.5-5.9) X10^6/uL Hgb 13.1 L (13.5-17.5) g/dL Hct 38.2 L (41-53) % MCV 92.8 (80-100) fL MCH 31.9 (26-34) PG MCHC 34.3 (30-36) % RDW 13.2 (11.6-14.8) % Plt Count 166 (150-400) X10^3/uL Neut % (Auto) 62.9 (50-75) % Lymph % (Auto) 24.5 L (25-40) % [place] % (Auto) 5.7 (3-14) % Eos % (Auto) 4.0 (2-4) % Baso % (Auto) 2.9 H (0-2) % Neut # (Auto) 5300 (1907-8417) /uL Lymph # (Auto) 2100 (0491-4294) /uL [place] # (Auto) 500 (0-900) /uL Eos # (Auto) 300 (0-450) /uL Baso # (Auto) 200 H (0-100) /uL PT 10.8 (10.1-12.7) SECONDS INR 0.9 (0.9-1.3) APTT 28 D (26.4-36.2) SECONDS Sodium 140 (137-145) mmol/L Potassium 3.3 L (3.4-5.1) mmol/L Chloride 110 H (98-107) mmol/L Carbon Dioxide 17 L (22-32) mmol/L BUN 24 H (9-20) mg/dL Creatinine 1.25 (0.66-1.25) mg/dL Estimated GFR 55.9 L (>60) mL/min BUN/Creatinine Ratio 19.2 (6-22) Glucose 106 (80-110) mg/dL Calcium 10.1 (8.4-10.2) mg/dL Urine Color Urine Appearance Urine pH (4.5-8.0) Ur Specific [place] (1.000-1.035) Urine Protein (Negative) Urine Glucose (UA) (Negative) g/dL Urine Ketones (NEGATIVE) Urine Occult Blood (Negative) Urine Nitrate (Negative) Urine Bilirubin (NEGATIVE) Urine Urobilinogen (0.2) E.U./dL Ur Leukocyte Esterase (NEGATIVE) Urine RBC (0-5/HPF) Urine WBC (0-5/HPF) Urine Bacteria (None) Ur Culture Indicated? U Opiates 300ng/mL cut (Negative) Ur Oxycodone Screen (Negative) Urine Methadone Screen (Negative) Ur Barbiturates Screen (Negative) U Tricyclic Antidepress (Negative) Ur Phencyclidine Scrn (Negative) Ur Amphetamines Screen (Negative) U Methamphetamines Scrn (Negative) Ur MDMA Scrn (Ecstasy) (Negative) U Benzodiazepines Scrn (Negative) Urine Cocaine Screen (Negative) U Marijuana (THC) Screen (Negative) Ethyl Alcohol < 10 ( - 10) mg/dL 09/14/19 09/14/19 Range/Units 00:15 00:15 WBC (4.5-11.0) X10^3/uL RBC (4.5-5.9) X10^6/uL Hgb (13.5-17.5) g/dL Hct (41-53) % MCV (80-100) fL MCH (26-34) PG MCHC (30-36) % RDW (11.6-14.8) % Plt Count (150-400) X10^3/uL Neut % (Auto) (50-75) % Lymph % (Auto) (25-40) % [place] % (Auto) (3-14) % Eos % (Auto) (2-4) % Baso % (Auto) (0-2) % Neut # (Auto) (5706-0133) /uL Lymph # (Auto) (3293-8269) /uL [place] # (Auto) (0-900) /uL Eos # (Auto) (0-450) /uL Baso # (Auto) (0-100) /uL PT (10.1-12.7) SECONDS INR (0.9-1.3) APTT (26.4-36.2) SECONDS Sodium (137-145) mmol/L Potassium (3.4-5.1) mmol/L Chloride (98-107) mmol/L Carbon Dioxide (22-32) mmol/L BUN (9-20) mg/dL Creatinine (0.66-1.25) mg/dL Estimated GFR (>60) mL/min BUN/Creatinine Ratio (6-22) Glucose (80-110) mg/dL Calcium (8.4-10.2) mg/dL Urine Color Yellow Urine Appearance Clear Urine pH 6.5 (4.5-8.0) Ur Specific [place] <=1.005 (1.000-1.035) Urine Protein Negative (Negative) Urine Glucose (UA) Negative (Negative) g/dL Urine Ketones Trace H (NEGATIVE) Urine Occult Blood Trace-intact (Negative) Urine Nitrate Negative (Negative) Urine Bilirubin Negative (NEGATIVE) Urine Urobilinogen 0.2 (0.2) E.U./dL Ur Leukocyte Esterase Negative (NEGATIVE) Urine RBC 1-5/hpf (0-5/HPF) Urine WBC None seen (0-5/HPF) Urine Bacteria None seen (None) Ur Culture Indicated? Cult not indicated U Opiates 300ng/mL cut Negative (Negative) Ur Oxycodone Screen Negative (Negative) Urine Methadone Screen Negative (Negative) Ur Barbiturates Screen Negative (Negative) U Tricyclic Antidepress Negative (Negative) Ur Phencyclidine Scrn Negative (Negative) Ur Amphetamines Screen Negative (Negative) U Methamphetamines Scrn Negative (Negative) Ur MDMA Scrn (Ecstasy) Negative (Negative) U Benzodiazepines Scrn Negative (Negative) Urine Cocaine Screen Negative (Negative) U Marijuana (THC) Screen Negative (Negative) Ethyl Alcohol ( - 10) mg/dL Point of Care Testing Glucose POC [address] scan - head: Attestation: I personally reviewed and interpreted this imaging study as follows: My Impression: NEAL Radiologist's Impression: NEAL CTA Head/Neck: Radiologist's Impression: No Acute Disease ECG Data Attestation: I personally reviewed and interpreted this ECG as follows: Prior ECG tracings: available for review Interpretation: EKG is sinus tachy rate [102 ] and free of any signs of ischemia or ectopy. No ST segmental elevation or depression. No T wave inversions Stroke Core Measures Exclusion Criteria TPA in CVA: Symptom Onset >3 or 4.5 Hours Critical Care Time Critical Care Time Critical Care Time: Yes Total Critical Care Time: 30 Attestation: The high probability of a clinically significant, sudden or life threatening deterioration of the [[place]] system(s) required my full and direct attention, intervention and personal management. The aggregate critical care time was [30] minutes. This time is in addition to time spent performing reported procedures but includes the following: [x] Data Review and interpretation [x] Patient assessment and monitoring of vital signs [x] Documentation [x] Medication orders and management Discharge Plan Departure Patient Disposition: Admitted as Observation Clinical Impression: Brain TIA Referrals: Raoul Salguero MD [Primary Care Provider] - Admit Date/Time: 09/14/19 01:35 Admit Provider: Talita Leslie
[2019-09-13 23:45] LABS: Add Manual Diff / Slide Review NO; Basophils Absolute Auto 200 /uL (0-100); Basophils Percent Auto 2.9 % (0-2); Eosinophils Absolute Auto 300 /uL (0-450); Hematocrit 38.2 % (41-53); Hemoglobin 13.1 g/dL (13.5-17.5); Lymphocytes Absolute Auto 2100 /uL (1100-4500); Lymphocytes Percent Auto 24.5 % (25-40); Mean Corpuscular HGB Conc 34.3 % (30-36); Mean Corpuscular Hemoglobin 31.9 PG (26-34); Mean Corpuscular Volume 92.8 fL (80-100); Monocytes Absolute Auto 500 /uL (0-900); Monocytes Percent Auto 5.7 % (3-14); Neutrophils Absolute Auto 5300 /uL (1500-7000); Neutrophils Percent Auto 62.9 % (50-75); Platelet Count 166 X10^3/uL (150-400); Red Blood Cell Count 4.11 X10^6/uL (4.5-5.9); Red Cell Distribution Width 13.2 % (11.6-14.8); White Blood Cell Count 8.4 X10^3/uL (4.5-11.0)
[2019-09-13 23:50] LABS: INR 0.9 (0.9-1.3); Prothrombin Time 10.8 SECONDS (10.1-12.7)
[2019-09-13 23:53] LABS: PTT Partial Thromboplastin Tim 28 SECONDS (26.4-36.2)
[2019-09-13 23:55] LABS: BUN Creatinine Ratio 19.2 (6-22); Blood Urea Nitrogen 24 mg/dL (9-20); Calcium 10.1 mg/dL (8.4-10.2); Carbon Dioxide 17 mmol/L (22-32); Chloride 110 mmol/L (98-107); Estimated Glomerular Filt Rate 55.9 mL/min (>60); Ethanol (ETOH) < 10 mg/dL; Glucose 106 mg/dL (80-110); HEMOLYSIS < 15 (0-50); Potassium 3.3 mmol/L (3.4-5.1); Sodium 140 mmol/L (137-145)
[2019-09-14] VITALS (11 sets, daily range): BP systolic 103–158; BP diastolic 61–113; PULSE 62–95; RESP 15–26; TEMP 36.5–37; O2SAT 96–100; BMI 22.9
[2019-09-14] MEDS: SODIUM CHLORIDE 0.9% 1,000 ML 150 ML IV (00:18)
[2019-09-14 00:21] LABS: Bacteria Urine None Seen; WBC Urine None Seen (0-5/HPF)
[2019-09-14 00:24] LABS: Appearance Urine UA CLEAR; Bilirubin Urine UA NEGATIVE (NEGATIVE); Color Urine UA YELLOW; Glucose Urine UA NEGATIVE (Negative); Ketones Urine UA TRACE (NEGATIVE); Leukocyte Esterase Urine UA NEGATIVE (NEGATIVE); Nitrite Urine UA NEGATIVE (Negative); Occult Blood Urine UA TRACE-INTACT (Negative); Protein Urine UA NEGATIVE (Negative); Specific Gravity Urine UA <=1.005 (1.000-1.035); Urobilinogen Urine UA 0.2 E.U./dL (0.2); pH Urine UA 6.5 (4.5-8.0)
--- NOTE | 2019-09-14 00:25 | PC.NURSE ---
Pt arrived with confusion, garbled speech, unintelligible. LKW 1800, although reports she is unclear about exact time. Parkinsons at baseline and tremulous. Triaged straight to CT for CT/CTA. Glucose 123. Pupils are unequal. R pupil 2mm L pupil 1mm and reactive. L side dependency counselor weak. L sided droop. reports normal sensation. no arm drift noted. NIH 7 and performed at bedside with Dr Frausto. Pt yelling that he has to urinate and is unable to. Bladder scan with >500 in bladder. 16F medina placed with over 600ml initial output orange in color-- states side effect from parkinsons meds. Specimen sent to lab for UAC/UDS. NSR 90-102, lungs clear, breathing easy. Abd SNT. 20G IV RAC. labs drawn by EMS and sent. awaiting further orders
[2019-09-14 00:28] LABS: UR Morphine/Opiate cutoff 300 Negative (Negative); Ur Creatinine Normal (Normal); Ur Specific Gravity Normal (Normal); Urine Amphetamines Negative (Negative); Urine Barbiturates Negative (Negative); Urine Benzodiazepines Negative (Negative); Urine Cocaine Negative (Negative); Urine MDMA Negative (Negative); Urine Methadone Negative (Negative); Urine Methamphetamines Negative (Negative); Urine Oxycodone Negative (Negative); Urine Phencyclidine Negative (Negative); Urine Tetrahydrocannabinol Negative (Negative); Urine Tricyclic Antidepressant Negative (Negative); Urine pH Normal (Normal)
[2019-09-14 00:31] LABS: Culture Indicated Urine Cult Not Indicated; RBC Urine 1-5/HPF (0-5/HPF)
--- NOTE | 2019-09-14 02:36 | P.HP_ITS ---
History of Present Illness History of Present Illness Date Patient Seen: 09/14/19 Time Patient Seen: 01:00 Chief complaint: Confusion, body stiffness in a patient w/Parkinson Narrative: Binu Dominguez is a 79 y.o. male who returns after having been discharged less t orozco 2 weeks ago for a fall and eventually diagnosed with orthostatic hypotension caused by one of his new Parkinson's medications. Per his , up until today, he was doing well and had been seen by both PT and Occupational Therapy today at 1330 and 1530 respectively and he seemed to be normal and energetic to accompany his on a car ride. They went out and returned home without incident and then took a hot tub soak at 1900. After the hot tub, she states he wanted to take a shower or bath but he was unable to stand on his own without falling. She states he was unable to follow directions to push himself onto the bed and reposition himself. She states his legs got very rigid and could not move. She stated he was staring and very focused on her but that he was not seeing her. She stated he was repeating himself and was talking to people who were not there. She showed me 2 videos both of him being in bed and in one where he is asking his to feel his legs as he was telling her he could not feel them. He sounded very anxious on the video. He denies shortness of breath, chest pain, had one episode since discharge of difficulty swallowing, denies nausea or vomiting, abdominal pain, dysurea, diarrhea or constipation. states he put out a lot of urine after having a medina placed and that he is taking his pills with applesauce and that his been keeping him regular. Per the ED provider: states that he was normal when she left at 0900 today after she had given him his meds. He then was seemingly normal as he had both PT and OT appointments at the house today, second of those two visits was at 1530 and she states that visit was 1 hour at the most. returned home for 5pm medications and states he was confused, couldn't follow commands and was spe aking gibberish as well as being rather excitable. She states he was extending his fingers and toes oddly which is new for him. No new injuries or falls noted. He was transported via EMS and arriaved at about 2330 and was activated as CODE STROKE and taken directly to CT. His neurologist is Dr. Garg at [facility]. She states the only other time his vision was like this was the day he was admitted for his last visit. The ED provider was not able to reach anyone from [facility]'s neurology service, but did discuss the case with the tele-stroke provider who recommended observing the patient overnight and repeating the stroke workup. They further recommended that if his MRI is negative, to reconsult with the service about either referral or transfer for further neurological workup. CTs of the head and CT angio of the head and neck were negative for an acute process. Patient's temperature was 98.6?, blood pressure 152/76, heart rate 66, respiratory rate of 18 with an oxygen saturation of 100% on room air, he is 62.5 kg with a BMI of 22.9. WBC is 8.4, RBC 4.11, hemoglobin 13.1, hematocrit 38.2, platelet count 166, sodium was 140, potassium 3.3, chloride 110, CO2 17, BUN 24, creatinine 1.25, GFR 55.9, troponin is pending, COVID-19 is negative. Patient History Medical History Anxiety (Chronic) Arthritis (Chronic) Bilateral thigh pain (Chronic) Chicken pox (Resolved) Chickenpox (Resolved Unknown) Chronic back pain (Chronic 1965) Chronic fatigue (Chronic 2013) Colon polyps (Resolved 2009) Coronary artery disease (Chronic) Depression (Chronic 2015) Erectile dysfunction (Chronic) Foot pain (Chronic ~2017) Hiatal hernia (Chronic) Hiatal hernia (Chronic) Hypercholesterolemia (Chronic) Hypertension (Chronic) Mumps (Resolved Unknown) Mumps (Resolved) Panic attacks (Chronic) Parkinson's disease (Chronic 2015) Proximal muscle weakness (Chronic) Surgical History Anesthesia (Resolved) History of colonoscopy with polypectomy (Resolved 11/19/17) History of colonoscopy with polypectomy (Resolved 2009) History of tonsillectomy and adenoidectomy (Resolved) S/P CABG (coronary artery bypass graft) (Resolved 06/2003) Status post coronary artery bypass graft (Resolved) Status post tonsillectomy and adenoidectomy (Resolved) Family & Social History Family History Father CAD (coronary artery disease) CVA (cerebral vascular accident) Hypertension Diabetes mellitus Heart attack Brain cancer Mother Hypertension Dementia Grandmother Diabetes mellitus Grandfather No problems noted. Brother No problems noted. Sister No problems noted. Social History: household members spouse Safety & Behavioral: Feels Safe in Current Unable to Answer Environment Been Physically Hurt or Unable to Answer Threatened By a Person Tobacco & Substance use: Smoking Status Never smoker alcohol intake former alcohol intake frequency 0-2 drinks per day Substance Use Type does not use Meds Home Medications and Allergies Home Medications Medication Instructions Recorded Confirmed Type carbidopa ER 50 mg-levodopa 200 mg 1 tab PO QID 90 Days tab 01/13/18 09/14/19 History tablet,extended release donepezil 10 mg tablet 20 mg PO BEDTIME 90 Days tab 01/13/18 09/14/19 History melatonin 10 mg capsule 10 mg PO BEDTIME PRN 01/13/18 09/09/19 History entacapone 200 mg tablet 200 mg PO QID 11/25/18 09/14/19 History omeprazole 20 mg capsule,delayed 20 mg PO DAILY #90 cap 02/04/19 09/14/19 Rx release pravastatin 20 mg tablet 20 mg PO BEDTIME #90 tab 02/04/19 09/14/19 Rx citalopram 20 mg tablet 20 mg PO QDAY #90 tab 06/11/19 09/14/19 Rx clonazepam 1 mg tablet 1.5 mg PO BID #270 tab 06/11/19 09/14/19 Rx mirtazapine 45 mg tablet 45 mg PO BEDTIME #90 tab 06/11/19 09/14/19 Rx tamsulosin 0.4 mg capsule 0.4 mg PO DAILY #90 cap 07/28/19 09/14/19 Rx levomefolate calcium 15 mg tablet 15 mg PO DAILY #90 tab 07/29/19 09/14/19 Rx Ginko Biloba 120 mg PO DAILY 08/16/19 09/14/19 History magnesium 500 mg PO BEDTIME 08/16/19 09/14/19 History midodrine 10 mg PO TID 30 Days #90 tab 09/01/19 09/14/19 Rx sennosides 8.6 mg capsule 8.6 mg PO BID cap 09/09/19 09/14/19 History Allergies Allergy/AdvReac Type Severity Reaction Status Date / Time No Known Drug Allergies Allergy Verified 09/09/19 15:09 Review of Systems Review of Systems ROS: Yes All systems reviewed with the patient and are negative except as otherwise documented Exam Vital Signs (past 8 hours): - 09/13/19 23:36 09/14/19 00:10 09/14/19 00:15 Temperature 98.6 F Pulse Rate 104 H 95 H 92 H Respiratory Rate 20 17 15 Blood Pressure 156/70 H 144/67 H Pulse Oximetry 100 100 98 09/14/19 00:30 09/14/19 00:46 09/14/19 01:00 Temperature 98.3 F Pulse Rate 90 87 87 Respiratory Rate 18 18 17 Blood Pressure 145/66 H 148/113 H 155/70 H Pulse Oximetry 98 97 96 09/14/19 01:15 09/14/19 01:30 09/14/19 01:45 Temperature Pulse Rate 81 86 76 Respiratory Rate 18 26 H 18 Blood Pressure 148/69 H 158/72 H 153/72 H Pulse Oximetry 99 99 99 09/14/19 02:24 Temperature 98.6 F Pulse Rate 66 Respiratory Rate 18 Blood Pressure 152/76 H Pulse Oximetry 100 Oxygen Delivery Method Room Air Narrative Exam Narrative: Gen: Alert, confused and thin 79 y.o. male, anxious at times HEENT: normocephalic, atraumatic, conjunctiva clear, sclera non-icteric, oral mucosa pink and moist Neck: supple, full ROM, no JVD, trachea is midline Resp: Lungs CTA, non-labored breathing CV: RRR, no murmur or rubs Abd: soft, non-tender, normoactive BTs Skin: no lesions or rashes, dry and intact Neuro: Alert and oriented to self. Patient not oriented to time, but is aware he is in the hospital. Speech is generally clear but does not always make sense. Extremities: moves all 4 extremities, is ambulatory, negative Maame?s sign Psyche: Cooperative. Objective Labs Result Diagrams: 09/13/19 23:35 09/13/19 23:35 Labs: Laboratory Results - last 24 hr 09/13/19 09/13/19 09/13/19 23:35 23:35 23:35 WBC 8.4 RBC 4.11 L Hgb 13.1 L Hct 38.2 L MCV 92.8 MCH 31.9 MCHC 34.3 RDW 13.2 Plt Count 166 Neut % (Auto) 62.9 Lymph % (Auto) 24.5 L Wallace % (Auto) 5.7 Eos % (Auto) 4.0 Baso % (Auto) 2.9 H Neut # (Auto) 5300 Lymph # (Auto) 2100 Wallace # (Auto) 500 Eos # (Auto) 300 Baso # (Auto) 200 H PT 10.8 INR 0.9 APTT 28 D Sodium 140 Potassium 3.3 L Chloride 110 H Carbon Dioxide 17 L BUN 24 H Creatinine 1.25 Estimated GFR 55.9 L BUN/Creatinine Ratio 19.2 Glucose 106 Calcium 10.1 Urine Color Urine Appearance Urine pH Ur Specific [place] Urine Protein Urine Glucose (UA) Urine Ketones Urine Occult Blood Urine Nitrate Urine Bilirubin Urine Urobilinogen Ur Leukocyte Esterase Urine RBC Urine WBC Urine Bacteria Ur Culture Indicated? U Opiates 300ng/mL cut Ur Oxycodone Screen Urine Methadone Screen Ur Barbiturates Screen U Tricyclic Antidepress Ur Phencyclidine Scrn Ur Amphetamines Screen U Methamphetamines Scrn Ur MDMA Scrn (Ecstasy) U Benzodiazepines Scrn Urine Cocaine Screen U Marijuana (THC) Screen Ethyl Alcohol < 10 09/14/19 09/14/19 00:15 00:15 WBC RBC Hgb Hct MCV MCH MCHC RDW Plt Count Neut % (Auto) Lymph % (Auto) [place] % (Auto) Eos % (Auto) Baso % (Auto) Neut # (Auto) Lymph # (Auto) [place] # (Auto) Eos # (Auto) Baso # (Auto) PT INR APTT Sodium Potassium Chloride Carbon Dioxide BUN Creatinine Estimated GFR BUN/Creatinine Ratio Glucose Calcium Urine Color Yellow Urine Appearance Clear Urine pH 6.5 Ur Specific [place] <=1.005 Urine Protein Negative Urine Glucose (UA) Negative Urine Ketones Trace H Urine Occult Blood Trace-intact Urine Nitrate Negative Urine Bilirubin Negative Urine Urobilinogen 0.2 Ur Leukocyte Esterase Negative Urine RBC 1-5/hpf Urine WBC None seen Urine Bacteria None seen Ur Culture Indicated? Cult not indicated U Opiates 300ng/mL cut Negative Ur Oxycodone Screen Negative Urine Methadone Screen Negative Ur Barbiturates Screen Negative U Tricyclic Antidepress Negative Ur Phencyclidine Scrn Negative Ur Amphetamines Screen Negative U Methamphetamines Scrn Negative Ur MDMA Scrn (Ecstasy) Negative U Benzodiazepines Scrn Negative Urine Cocaine Screen Negative U Marijuana (THC) Screen Negative Ethyl Alcohol Assessment & Plan Assessment & Plan narrative: Binu Dominguez will be observed overnight to complete a stroke rule out. Questionable progression of acute CVA, NIH score of 7 present on admission -CT of the head and neck and CTA angio were negative for a CVA or acute process -MRI obtained no evidence of acute CVA -TTE done on 08/27 indicated an EF of 50-55% with more obvious wall motion abnormalities compared to prior study 6 years ago. He will not undergo a repeat echo. No significant valvular pathologies. -He was seen by PT and OT and will be reassessed by PT/OT in the am -Q4 hour neuro checks Hypokalemia with a potassium of 3.3, acute and present on admission -He will receive potassium 40 meQ po once. Parkinson's disease, chronic, present on admission -continue home dose of carbidopa levodopa 50/200 1 tab at 9:00 a.m., 1300, 1700, and 2200 -continue home dose of entacapone 200 mg taken with his carbidopa levodopa -Pursue neuro consult during the day to consider transfer to tertiary facility if stroke is ruled out History of orthostasis -Continue orthostatic vitals q shift -most likely related to orthostatic hypotension secondary to parkinson's disease. -Continue midodrine to 10 mg TID CAD, chronic -patient underwent a 3 vessel bypass approximately 20 years ago and subsequent stent placement in 3 vessels a year later -continue home medications. Hyperlipidemia, chronic -continue pravastatin 20 mg p.o. at bedtime Neurogenic bladder -Continue home dose of tamsulosin 0.4 mg po daily. -Continue medina Depression and anxiety, chronic -continue home dose of mirtazapine 45 mg p.o. at bedtime -Continue home dose of levomefolate calcium 15 po daily -Continue home dose of citalopram 20 mg po daily -Continue clonazapam 1 mg po bid Insomnia, chronic Continue home dose of melatonin 10 mg, auto subbed to 9 mg at bedtime Neurocognitive condition, not specified -Continue home dose of donepezil 10 mg po at bedtime Patient is observation status as his stay is not likely to exceed 2 midnights. FEN: saline lock, low sodium diet , BMP in the am. VTE prophylaxis: Bilateral SCDs Dispo: unknown at this time Code Status: Full Code per recent past admission Quality VTE Deep Vein Thrombosis/Pulmonary Embolism Present on Admission: No
[2019-09-14 02:40] LABS: COVID19 -Nasal RAPID Negative (Negative)
[2019-09-14] MEDS: PANTOPRAZOLE 20 MG TABLET PO (03:05)
[2019-09-14] MEDS: CITALOPRAM 20 MG TABLET PO (03:05)
[2019-09-14] MEDS: POTASSIUM CHLORIDE 20 MEQ TAB 40 MEQ PO (04:06)
[2019-09-14 04:07] LABS: Troponin I 0.581 ng/mL (0.01-0.034)
--- NOTE | 2019-09-14 04:59 | PM.DS.1 ---
History of Present Illness History of Present Illness Chief complaint: Confusion, body stiffness in a patient w/Parkinson Narrative: Binu Dominguez is a 79 y.o. male who returns after having been discharged less than 2 weeks ago for a fall and eventually diagnosed with orthostatic hypotension caused by one of his new Parkinson's medications. Per his , up until today, he was doing well and had been seen by both PT and Occupational Therapy today at 1330 and 1530 respectively and he seemed to be normal and energetic to accompany his on a car ride. They went out and returned home without incident and then took a hot tub soak at 1900. After the hot tub, she states he wanted to take a shower or bath but he was unable to stand on his own without falling. She states he was unable to follow directions to push himself onto the bed and reposition himself. She states his legs got very rigid and could not move. She stated he was staring and very focused on her but that he was not seeing her. She stated he was repeating himself and was talking to people who were not there. She showed me 2 videos both of him being in bed and in one where he is asking his to feel his legs as he was telling her he could not feel them. He sounded very anxious on the video. He denies shortness of breath, chest pain, had one episode since discharge of difficulty swallowing, denies nausea or vomiting, abdominal pain, dysurea, diarrhea or constipation. states he put out a lot of urine after having a medina placed and that he is taking his pills with applesauce and that his been keeping him regular. Per the ED provider: states that he was normal when she left at 0900 today after she had given him his meds. He then was seemingly normal as he had both PT and OT appointments at the house today, second of those two visits was at 1530 and she states that visit was 1 hour at the most. returned home for 5pm medications and states he was confused, couldn't follow commands and was speaking gibberish as well as being rather excitable. She states he was extending his fingers and toes oddly which is new for him. No new injuries or falls noted. He was transported via EMS and arriaved at about 2330 and was activated as CODE STROKE and taken directly to CT. His neurologist is Dr. Garg at [facility]. She states the only other time his vision was like this was the day he was admitted for his last visit. The ED provider was not able to reach anyone from [facility]'s neurology service, but did discuss the case with the tele-stroke provider who recommended observing the patient overnight and repeating the stroke workup. They further recommended that if his MRI is negative, to reconsult with the service about either referral or transfer for further neurological workup. CTs of the head and CT angio of the head and neck were negative for an acute process. Patient's temperature was 98.6?, blood pressure 152/76, heart rate 66, respiratory rate of 18 with an oxygen saturation of 100% on room air, he is 62.5 kg with a BMI of 22.9. WBC is 8.4, RBC 4.11, hemoglobin 13.1, hematocrit 38.2, platelet count 166, sodium was 140, potassium 3.3, chloride 110, CO2 17, BUN 24, creatinine 1.25, GFR 55.9, troponin is pending, COVID-19 is negative. Discharge Providers Provider Date of admission: 09/14/19 01:35 Discharge Date: 09/14/19 Primary care physician: Raoul Salguero MD Consults: 09/14/19 02:43 Consult to Occupational Therapy Evaluate & Treat Comment: Readmit, CVA r/o Physician Instructions: Evaluate and treat Consult to Physical Therapy Evaluate & Treat Comment: Readmit, CVA r/o Physician Instructions: Evaluate and Treat Consult to Speech Therapy Evaluate & Treat Comment: swallow eval, CVA r/o Physician Instructions: Evaluate and treat 09/14/19 02:54 Consult to Dietitian, Adult Routine Comment: loss of appetite Reason For Exam: 20lb recent unintentional weight loss Discharge provider: BULMARO English Summary Hospital Course Discharge Diagnosis: Suspected CVA Status at Discharge Cognitive/behavioral status at discharge: confused and calm Overall status at discharge: patient is not back to baseline Exam Vital Signs (past 8 hours): - 09/13/19 23:36 09/14/19 00:10 09/14/19 00:15 Temperature 98.6 F Pulse Rate 104 H 95 H 92 H Respiratory Rate 20 17 15 Blood Pressure 156/70 H 144/67 H Pulse Oximetry 100 100 98 09/14/19 00:30 09/14/19 00:46 09/14/19 01:00 Temperature 98.3 F Pulse Rate 90 87 87 Respiratory Rate 18 18 17 Blood Pressure 145/66 H 148/113 H 155/70 H Pulse Oximetry 98 97 96 09/14/19 01:15 09/14/19 01:30 09/14/19 01:45 Temperature Pulse Rate 81 86 76 Respiratory Rate 18 26 H 18 Blood Pressure 148/69 H 158/72 H 153/72 H Pulse Oximetry 99 99 99 09/14/19 02:24 09/14/19 02:48 Temperature 98.6 F 98.6 F Pulse Rate 66 66 Respiratory Rate 18 18 Blood Pressure 152/76 H 152/76 H Pulse Oximetry 100 100 Oxygen Delivery Method Room Air Narrative Exam Narrative: Gen: Alert, confused and thin 79 y.o. male, anxious at times HEENT: normocephalic, atraumatic, conjunctiva clear, sclera non-icteric, oral mucosa pink and moist Neck: supple, full ROM, no JVD, trachea is midline Resp: Lungs CTA, non-labored breathing CV: RRR, no murmur or rubs Abd: soft, non-tender, normoactive BTs Skin: no lesions or rashes, dry and intact Neuro: Alert and oriented to self. Patient not oriented to time, but is aware he is in the hospital. Speech is generally clear but does not always make sense. Extremities: moves all 4 extremities, is ambulatory, negative Maame?s sign Psyche: Cooperative. Objective Labs Result Diagrams: 09/13/19 23:35 09/13/19 23:35 Labs: Laboratory Results - last 24 hr 09/13/19 09/13/19 09/13/19 23:35 23:35 23:35 WBC 8.4 RBC 4.11 L Hgb 13.1 L Hct 38.2 L MCV 92.8 MCH 31.9 MCHC 34.3 RDW 13.2 Plt Count 166 Neut % (Auto) 62.9 Lymph % (Auto) 24.5 L [place] % (Auto) 5.7 Eos % (Auto) 4.0 Baso % (Auto) 2.9 H Neut # (Auto) 5300 Lymph # (Auto) 2100 [place] # (Auto) 500 Eos # (Auto) 300 Baso # (Auto) 200 H PT 10.8 INR 0.9 APTT 28 D Sodium 140 Potassium 3.3 L Chloride 110 H Carbon Dioxide 17 L BUN 24 H Creatinine 1.25 Estimated GFR 55.9 L BUN/Creatinine Ratio 19.2 Glucose 106 Calcium 10.1 Troponin I Urine Color Urine Appearance Urine pH Ur Specific [place] Urine Protein Urine Glucose (UA) Urine Ketones Urine Occult Blood Urine Nitrate Urine Bilirubin Urine Urobilinogen Ur Leukocyte Esterase Urine RBC Urine WBC Urine Bacteria Ur Culture Indicated? U Opiates 300ng/mL cut Ur Oxycodone Screen Urine Methadone Screen Ur Barbiturates Screen U Tricyclic Antidepress Ur Phencyclidine Scrn Ur Amphetamines Screen U Methamphetamines Scrn Ur MDMA Scrn (Ecstasy) U Benzodiazepines Scrn Urine Cocaine Screen U Marijuana (THC) Screen Ethyl Alcohol < 10 COVID-19 PCR 09/14/19 09/14/19 09/14/19 00:15 00:15 01:37 WBC RBC Hgb Hct MCV MCH MCHC RDW Plt Count Neut % (Auto) Lymph % (Auto) [place] % (Auto) Eos % (Auto) Baso % (Auto) Neut # (Auto) Lymph # (Auto) [place] # (Auto) Eos # (Auto) Baso # (Auto) PT INR APTT Sodium Potassium Chloride Carbon Dioxide BUN Creatinine Estimated GFR BUN/Creatinine Ratio Glucose Calcium Troponin I Urine Color Yellow Urine Appearance Clear Urine pH 6.5 Ur Specific [place] <=1.005 Urine Protein Negative Urine Glucose (UA) Negative Urine Ketones Trace H Urine Occult Blood Trace-intact Urine Nitrate Negative Urine Bilirubin Negative Urine Urobilinogen 0.2 Ur Leukocyte Esterase Negative Urine RBC 1-5/hpf Urine WBC None seen Urine Bacteria None seen Ur Culture Indicated? Cult not indicated U Opiates 300ng/mL cut Negative Ur Oxycodone Screen Negative Urine Methadone Screen Negative Ur Barbiturates Screen Negative U Tricyclic Antidepress Negative Ur Phencyclidine Scrn Negative Ur Amphetamines Screen Negative U Methamphetamines Scrn Negative Ur MDMA Scrn (Ecstasy) Negative U Benzodiazepines Scrn Negative Urine Cocaine Screen Negative U Marijuana (THC) Screen Negative Ethyl Alcohol COVID-19 PCR Negative 09/14/19 03:07 WBC RBC Hgb Hct MCV MCH MCHC RDW Plt Count Neut % (Auto) Lymph % (Auto) [place] % (Auto) Eos % (Auto) Baso % (Auto) Neut # (Auto) Lymph # (Auto) [place] # (Auto) Eos # (Auto) Baso # (Auto) PT INR APTT Sodium Potassium Chloride Carbon Dioxide BUN Creatinine Estimated GFR BUN/Creatinine Ratio Glucose Calcium Troponin I 0.581 H* Urine Color Urine Appearance Urine pH Ur Specific [place] Urine Protein Urine Glucose (UA) Urine Ketones Urine Occult Blood Urine Nitrate Urine Bilirubin Urine Urobilinogen Ur Leukocyte Esterase Urine RBC Urine WBC Urine Bacteria Ur Culture Indicated? U Opiates 300ng/mL cut Ur Oxycodone Screen Urine Methadone Screen Ur Barbiturates Screen U Tricyclic Antidepress Ur Phencyclidine Scrn Ur Amphetamines Screen U Methamphetamines Scrn Ur MDMA Scrn (Ecstasy) U Benzodiazepines Scrn Urine Cocaine Screen U Marijuana (THC) Screen Ethyl Alcohol COVID-19 PCR Discharge Assessment & Plan Assessment and Plan Assessment: Questionable progression of acute CVA, NIH score of 7 present on admission -CT of the head and neck and CTA angio were negative for a CVA or acute process -MRI obtained no evidence of acute CVA -TTE done on 08/27 indicated an EF of 50-55% with more obvious wall motion abnormalities compared to prior study 6 years ago. He will not undergo a repeat echo. No significant valvular pathologies. -He was seen by PT and OT and will be reassessed by PT/OT in the am -Q4 hour neuro checks Hypokalemia with a potassium of 3.3, acute and present on admission -He will receive potassium 40 meQ po once. Parkinson's disease, chronic, present on admission -continue home dose of carbidopa levodopa 50/200 1 tab at 9:00 a.m., 1300, 1700, and 2200 -continue home dose of entacapone 200 mg taken with his carbidopa levodopa -Pursue neuro consult during the day to consider transfer to tertiary facility if stroke is ruled out History of orthostasis -Continue orthostatic vitals q shift -most likely related to orthostatic hypotension secondary to parkinson's disease. -Continue midodrine to 10 mg TID CAD, chronic -patient underwent a 3 vessel bypass approximately 20 years ago and subsequent stent placement in 3 vessels a year later -continue home medications. Hyperlipidemia, chronic -continue pravastatin 20 mg p.o. at bedtime Neurogenic bladder -Continue home dose of tamsulosin 0.4 mg po daily. -Continue medina Depression and anxiety, chronic -continue home dose of mirtazapine 45 mg p.o. at bedtime -Continue home dose of levomefolate calcium 15 po daily -Continue home dose of citalopram 20 mg po daily -Continue clonazapam 1 mg po bid Insomnia, chronic Continue home dose of melatonin 10 mg, auto subbed to 9 mg at bedtime Neurocognitive condition, not specified -Continue home dose of donepezil 10 mg po at bedtime Patient is observation status as his stay is not likely to exceed 2 midnights. FEN: saline lock, low sodium diet , BMP in the am. VTE prophylaxis: Bilateral SCDs Dispo: unknown at this time Code Status: Full Code per recent past admission Quality VTE Deep Vein Thrombosis/Pulmonary Embolism Present on Admission: No Discharge Plan Discharge [facility]: [facility] Under care of provider: Accepting: Dr. Poloe Discharge orders & Medications Follow up/Referrals: Raoul Salguero MD [Primary Care Provider] - Discharge Health Status Precautions: [place] Diet/Activity/Treatments Diet: Nothing by Mouth Discharge Data Primary Care Provider: Raoul Salguero Attending Provider: Talita Leslie Admit Date/Time: 09/14/19 01:35 Quality VTE Deep Vein Thrombosis/Pulmonary Embolism Present on Admission: No
--- NOTE | 2019-09-14 06:52 | PC.NURSE ---
Report given to [facility]. Patient had an indwelling medina cather and 20G right antecubital IV left in place. Left at 0643.
== END 2019-09-14 06:43 | disposition short-term general hospital (02) ==
LOC: ED 09-14 01:23 → AC 09-14 01:37
PROVIDERS: Admitting Provider Nurse Practitioner Family; Emergency Provider Emergency Medicine; PCP Student in an Organized Health Care Education/Training Program; Visit Provider Nurse Practitioner Family
DX: R29.818 Other symptoms and signs involving the nervous system (principal); G20 Parkinson's disease; I25.10 Atherosclerotic heart disease of native coronary artery without angina pectoris; E78.5 Hyperlipidemia, unspecified; N31.9 Neuromuscular dysfunction of bladder, unspecified; F32.9 Major depressive disorder, single episode, unspecified; F41.9 Anxiety disorder, unspecified; G47.00 Insomnia, unspecified; E87.6 Hypokalemia; Z11.59 Encounter for screening for other viral diseases
CPT/HCPCS: 36415; 51701; 51798; 70450; 70496; 70498; 80048; 80305; 80320; 81001; 82962; 84484; 85025; 85610; 85730; 87635; 93005; 96360; 96361; 99285; 99291; G0378; Q9967

== ENCOUNTER 2020-01-22 03:38 | Emergency (ER) | payer MEDICARE, OTHER, SELFPAY ==
[2019-09-17 10:35] VITALS: BMI 22.9
[2020-01-22] VITALS (7 sets, daily range): BP systolic 132–170; BP diastolic 60–76; PULSE 82–87; RESP 11–22; TEMP 37.8; O2SAT 95–98
--- NOTE | 2020-01-22 03:40 | ED_ITS ---
HPI - General Adult General Chief complaint: Fever Stated complaint: Altered LOC Time Seen by Provider: 01/22/20 03:39 Source: patient and EMS Mode of arrival: EMS Limitations: no limitations History of Present Illness HPI narrative: 79-year-old male with a history of Parkinson's disease. Also has had a history of TIAs. Not on anticoagulation who is brought in by EMS for evaluation of fever and shaking and not acting right. EMS were called to the house were initially they reported that he had a fever however this was done by a temporal thermometer. When they checked a oral temperature he was 9 9. You should to who eventually brought to the emergency department states that yesterday afternoon he was not acting right. Was difficult for her to explain symptoms more than that. She did not think that he was slurring his words however was complaining that his feet were cold. She then thought that he was shaking and had chills. Patient denies any symptoms upon arrival. Related Data Home Medications Medication Instructions Recorded Confirmed carbidopa ER 50 mg-levodopa 200 mg 1 tab PO QID 90 Days tab 01/13/18 12/17/19 tablet,extended release donepezil 10 mg tablet 20 mg PO BEDTIME 90 Days tab 01/13/18 12/17/19 melatonin 10 mg capsule 10 mg PO BEDTIME PRN 01/13/18 12/17/19 Ginko Biloba 120 mg PO DAILY 08/16/19 12/17/19 entacapone 200 mg tablet 100 mg PO BID tab 10/14/19 12/17/19 aspirin 81 mg tablet,delayed 81 mg PO DAILY 12/02/19 12/17/19 release cholecalciferol (vitamin D3) 50 50 mcg PO DAILY 12/02/19 12/17/19 mcg (2,000 unit) capsule docusate sodium 100 mg capsule 100 mg PO BID 12/02/19 12/17/19 folic acid 400 mcg tablet 0.4 mg PO DAILY 12/02/19 12/17/19 saw palmetto 450 mg capsule 450 mg PO DAILY cap 12/02/19 12/17/19 Previous Rx's Medication Instructions Recorded citalopram 20 mg tablet 20 mg PO QDAY #90 tab 06/11/19 mirtazapine 45 mg tablet 45 mg PO BEDTIME #90 tab 06/11/19 tamsulosin 0.4 mg capsule 0.4 mg PO DAILY #90 cap 07/28/19 omeprazole 20 mg capsule,delayed 20 mg PO DAILY #90 cap 09/20/19 release pravastatin 20 mg tablet See Rx Instructions .ROUTE 10/15/19 .COMPLEX #90 tab clonazepam 1 mg tablet 1.5 mg PO BID #270 tab 01/07/20 Allergies Allergy/AdvReac Type Severity Reaction Status Date / Time No Known Drug Allergies Allergy Verified 12/17/19 14:34 Review of Systems Constitutional Constitutional: Reports chills, Reports fever(s) and Reports headache(s) Comments: Shaking ENT Ears, Nose, Mouth, and Throat: Reports headache(s) Cardiovascular Cardiovascular: Denies chest pain and Denies dyspnea Respiratory Respiratory: Denies cough and Denies dyspnea Gastrointestinal Gastrointestinal: Denies abdominal pain, Denies nausea and Denies vomiting Genitourinary Genitourinary: Denies dysuria Genitourinary: Denies dysuria Musculoskeletal Musculoskeletal: Denies arthralgias and Denies myalgias Integumentary/Breasts Skin/Breast: Denies rash Neurologic Neurologic: Denies behavioral changes and Reports headache(s) Psychiatric Psychiatric: Denies behavioral changes Hematologic/Lymphatic Hematologic/Lymphatic: Denies easy bleeding and Denies easy bruising Allergic/Immunologic Allergic/Immunologic: Denies urticaria Patient History Medical History Anxiety Arthritis Bilateral thigh pain Chicken pox Chickenpox (Unknown) Chronic back pain (1965) Chronic fatigue (2013) Colon polyps (2010) Coronary artery disease Depression (2014) Erectile dysfunction Foot pain (~2017) Hiatal hernia Hiatal hernia Hypercholesterolemia Hypertension Mumps (Unknown) Mumps Panic attacks Parkinson's disease (2015) Proximal muscle weakness Surgical History Anesthesia History of colonoscopy with polypectomy (11/19/17) History of colonoscopy with polypectomy (2009) History of tonsillectomy and adenoidectomy S/P CABG (coronary artery bypass graft) (06/2003) Status post coronary artery bypass graft Status post tonsillectomy and adenoidectomy Family History Father CAD (coronary artery disease) CVA (cerebral vascular accident) Hypertension Diabetes mellitus Heart attack Brain cancer Mother Hypertension Dementia Grandmother Diabetes mellitus Grandfather No problems noted. Brother No problems noted. Sister No problems noted. Social History household members: spouse Smoking Status: Never smoker alcohol intake: former Smoking Status: Never smoker alcohol intake frequency: 0-2 drinks per day Substance Use Type: does not use Exam Initial Vital Signs Initial Vital Signs: Vital Signs Temperature 100.1 F H 01/22/20 03:45 Pulse Rate 82 01/22/20 03:45 Respiratory Rate 18 01/22/20 03:45 Blood Pressure 170/76 H 01/22/20 03:45 Pulse Oximetry 97 01/22/20 03:45 Const General: cooperative, comfortable and well developed Limitations: mental status not altered HENMT Head: normal to inspection and normocephalic Resp Effort & Inspection: normal respiratory effort Auscultation: clear to auscultation bilaterally Cardio Rate: regular rate Rhythm: regular rhythm GI Palpation: soft, No firm and No tender Skin Lesions: no lesions Neuro General: patient alert, patient awake and patient oriented x3 Cognition: normal cognition Speech: speech normal Extrem General: normal to inspection and capillary refill normal Psych Appearance: grossly normal and well kempt Scores GCS [place] coma scale eye opening: Spontaneous [place] coma scale verbal response: Orientated Samina coma scale motor response: Obey commands [place] coma scale total score: 15 NIH Stroke Scale Level of Conciousness: Alert, keenly responsive Ask month/age: Answers both questions correctly. Open/close eyes, close hand: Performs both tasks correctly Best gaze horizontal: Normal Visual jaquez: No visual loss Facial palsy: Normal symetrical movement Left arm drift: No drift for full 10 sec Right arm drift: No drift for full 10 sec Left leg drift: No drift for full 5 sec Right leg drift: No drift for full 5 sec Limb ataxia: Absent Sensory on face/arms/legs: Normal, no sensory loss Dysarthria: Normal Extinction or inattention: No abnormality Course Orders Ordered: ED Orders 01/22/20 03:20 Complete Blood Count AUTO DIFF Stat Comprehensive Metabolic Panel Stat Lipase Stat 01/22/20 03:40 COVID19 Stat 01/22/20 04:02 CT head/brain wo con Stat Blood Culture Stat Lactate (Lactic Acid) Stat Procalcitonin Stat 01/22/20 04:10 UA Complete [Urinalysis and Microscopic] Stat Discontinued Medications Acetaminophen (Acetaminophen 325 Mg Tablet) 650 mg PO NOW ONE Stop: 01/22/20 05:37 Last Admin: 01/22/20 05:40 Dose: 650 mg Documented by: Vital Signs Vital signs: Vital Signs - 8 hr 01/22/20 03:45 01/22/20 03:47 01/22/20 04:00 Temperature 100.1 F H Pulse Rate 82 87 86 Respiratory Rate 18 17 22 Blood Pressure 170/76 H 165/74 H Pulse Oximetry 97 98 96 01/22/20 04:30 01/22/20 04:52 01/22/20 05:00 Temperature Pulse Rate 86 86 85 Respiratory Rate 18 16 11 L Blood Pressure 146/68 H 141/63 H 132/61 Pulse Oximetry 95 95 95 01/22/20 05:30 Temperature Pulse Rate 83 Respiratory Rate 15 Blood Pressure 132/60 Pulse Oximetry 96 Medical Decision Making Lab Data Lab results reviewed: Yes I reviewed the patient's lab results. Result diagrams: 01/22/20 03:20 01/22/20 03:20 Labs: Lab Results 01/22/20 01/22/20 01/22/20 Range/Units 03:20 03:20 03:50 WBC 10.4 (4.5-11.0) X10^3/uL RBC 4.29 L (4.5-5.9) X10^6/uL Hgb 13.3 L (13.5-17.5) g/dL Hct 39.5 L (41-53) % MCV 92.0 (80-100) fL MCH 31.0 (26-34) PG MCHC 33.6 (30-36) % RDW 13.5 (11.6-14.8) % Plt Count 148 L (150-400) X10^3/uL Neut % (Auto) 79.4 H (50-75) % Lymph % (Auto) 12.5 L (25-40) % [place] % (Auto) 7.2 (3-14) % Eos % (Auto) 0.4 L (2-4) % Baso % (Auto) 0.5 (0-2) % Neut # (Auto) 8200 H (0559-6153) /uL Lymph # (Auto) 1300 (9373-4121) /uL [place] # (Auto) 700 (0-900) /uL Eos # (Auto) 0 (0-450) /uL Baso # (Auto) 100 (0-100) /uL Sodium 136 L (137-145) mmol/L Potassium 3.3 L (3.4-5.1) mmol/L Chloride 106 (98-107) mmol/L Carbon Dioxide 25 (22-32) mmol/L BUN 24 H (9-20) mg/dL Creatinine 1.11 (0.66-1.25) mg/dL Estimated GFR > 60.0 (>60) mL/min BUN/Creatinine Ratio 21.6 (6-22) Glucose 130 H (80-110) mg/dL Lactate (0.7-2.1) mmol/L Calcium 9.2 (8.4-10.2) mg/dL Total Bilirubin 0.6 (0.2-1.3) mg/dL AST 25 (17-59) IU/L ALT 16 (<50) IU/L Alkaline Phosphatase 68 (38-126) U/L Total Protein 6.6 (6.3-8.2) g/dL Albumin 4.0 (3.5-5.0) g/dL Globulin 2.6 (1.7-4.1) g/dL Albumin/Globulin Ratio 1.5 (1.0-2.8) Lipase 192 (23-300) U/L Procalcitonin (<0.5) ng/mL Urine Color Urine Appearance Urine pH (4.5-8.0) Ur Specific Pierce (1.000-1.035) Urine Protein (Negative) Urine Glucose (UA) (Negative) g/dL Urine Ketones (NEGATIVE) Urine Occult Blood (Negative) Urine Nitrate (Negative) Urine Bilirubin (NEGATIVE) Urine Urobilinogen (0.2) E.U./dL Ur Leukocyte Esterase (NEGATIVE) Urine RBC (0-5/HPF) Urine WBC (0-5/HPF) Urine Bacteria (None) Ur Culture Indicated? Micro UA Comment COVID-19 PCR Negative (Negative) 01/22/20 01/22/20 01/22/20 Range/Units 03:50 03:50 04:10 WBC (4.5-11.0) X10^3/uL RBC (4.5-5.9) X10^6/uL Hgb (13.5-17.5) g/dL Hct (41-53) % MCV (80-100) fL MCH (26-34) PG MCHC (30-36) % RDW (11.6-14.8) % Plt Count (150-400) X10^3/uL Neut % (Auto) (50-75) % Lymph % (Auto) (25-40) % [place] % (Auto) (3-14) % Eos % (Auto) (2-4) % Baso % (Auto) (0-2) % Neut # (Auto) (2240-1954) /uL Lymph # (Auto) (6934-9298) /uL [place] # (Auto) (0-900) /uL Eos # (Auto) (0-450) /uL Baso # (Auto) (0-100) /uL Sodium (137-145) mmol/L Potassium (3.4-5.1) mmol/L Chloride (98-107) mmol/L Carbon Dioxide (22-32) mmol/L BUN (9-20) mg/dL Creatinine (0.66-1.25) mg/dL Estimated GFR (>60) mL/min BUN/Creatinine Ratio (6-22) Glucose (80-110) mg/dL Lactate 2.4 H (0.7-2.1) mmol/L Calcium (8.4-10.2) mg/dL Total Bilirubin (0.2-1.3) mg/dL AST (17-59) IU/L ALT (<50) IU/L Alkaline Phosphatase (38-126) U/L Total Protein (6.3-8.2) g/dL Albumin (3.5-5.0) g/dL Globulin (1.7-4.1) g/dL Albumin/Globulin Ratio (1.0-2.8) Lipase (23-300) U/L Procalcitonin < 0.05 (<0.5) ng/mL Urine Color Yellow Urine Appearance Clear Urine pH 7.0 (4.5-8.0) Ur Specific [place] 1.020 (1.000-1.035) Urine Protein Negative (Negative) Urine Glucose (UA) Negative (Negative) g/dL Urine Ketones 1+ H (NEGATIVE) Urine Occult Blood Negative (Negative) Urine Nitrate Negative (Negative) Urine Bilirubin Negative (NEGATIVE) Urine Urobilinogen 0.2 (0.2) E.U./dL Ur Leukocyte Esterase Negative (NEGATIVE) Urine RBC None seen (0-5/HPF) Urine WBC None seen (0-5/HPF) Urine Bacteria None seen (None) Ur Culture Indicated? Cult not indicated Micro UA Comment Microscopic normal COVID-19 PCR (Negative) Imaging Data CT scan - head: Radiologist's Impression: Generalized involutional changes noted. Con sistent with age. MDM Narrative Medical decision making narrative: Patient was alert oriented x3. GCS 15. Does have Parkinson's disease however was able to perform the NIH scale without much difficulty. He has a nonfocal neuro exam otherwise. His states he is at baseline. His COVID is negative. His lungs are clear. Has not had a cough. Low suspicion for pneumonia. Urine shows no signs of infection. He has no skin changes. Initially he reported no symptoms within stated he was having somewhat of a headache behind his eyes. Given the headache and the potential reported symptoms yesterday of not acting well a head CT was performed which showed no acute pathology. I do have low suspicion for CVA. He has had an extensive workup just recently to include a CTA of the head neck and also an echocardiogram for presumed TIA. I feel we can hold on further workup for now. Patient states he would like to go home and sleep in his own bed. His is comfortable taking him home. He was given return precautions. He expressed understanding agreement. Discharge Plan Departure Patient Disposition: Home Clinical Impression: Headache, Parkinson's disease Instructions: How to Prevent Falls Activity Restrictions/Additional Instructions: Continue all of your medications as directed. Contact your primary provider for follow-up. Return to the emergency department for any new or worsening symptoms. Prescriptions: No Action carbidopa-levodopa 50-200 mg tablet extended release 1 tab PO QID 90 Days RF: 0 donepezil 10 mg tablet 20 mg PO BEDTIME 90 Days RF: 0 melatonin 10 mg capsule 10 mg PO BEDTIME PRN (Reason: Insomnia) RF: 0 docusate sodium [Dulcolax Stool Softener (dss)] 100 mg capsule 100 mg PO BID RF: 0 folic acid 400 mcg tablet 0.4 mg PO DAILY RF: 0 saw palmetto 450 mg capsule 450 mg PO DAILY RF: 0 aspirin [Adult Aspirin Regimen] 81 mg tablet,delayed release (DR/EC) 81 mg PO DAILY RF: 0 cholecalciferol (vitamin D3) 50 mcg (2,000 unit) capsule 50 mcg PO DAILY RF: 0 citalopram [Celexa] 20 mg tablet 20 mg PO QDAY Qty: 90 RF: 2 mirtazapine 45 mg tablet 45 mg PO BEDTIME Qty: 90 RF: 2 tamsulosin 0.4 mg capsule 0.4 mg PO DAILY Qty: 90 RF: 1 omeprazole 20 mg capsule,delayed release(DR/EC) 20 mg PO DAILY Qty: 90 RF: 1 entacapone 200 mg tablet 100 mg PO BID RF: 0 pravastatin 20 mg tablet See Rx Instructions .ROUTE .COMPLEX Qty: 90 RF: 3 clonazepam 1 mg tablet 1.5 mg PO BID Qty: 270 RF: 2 Ginko Biloba tablet 120 mg PO DAILY RF: 0 Referrals: Raoul Salguero MD [Primary Care Provider] -
[2020-01-22 03:53] LABS: Add Manual Diff / Slide Review NO; Basophils Absolute Auto 100 /uL (0-100); Basophils Percent Auto 0.5 % (0-2); Eosinophils Absolute Auto 0 /uL (0-450); Eosinophils Percent Auto 0.4 % (2-4); Hematocrit 39.5 % (41-53); Hemoglobin 13.3 g/dL (13.5-17.5); Lymphocytes Absolute Auto 1300 /uL (1100-4500); Lymphocytes Percent Auto 12.5 % (25-40); Mean Corpuscular HGB Conc 33.6 % (30-36); Monocytes Absolute Auto 700 /uL (0-900); Monocytes Percent Auto 7.2 % (3-14); Neutrophils Absolute Auto 8200 /uL (1500-7000); Neutrophils Percent Auto 79.4 % (50-75); Platelet Count 148 X10^3/uL (150-400); Red Blood Cell Count 4.29 X10^6/uL (4.5-5.9); Red Cell Distribution Width 13.5 % (11.6-14.8); White Blood Cell Count 10.4 X10^3/uL (4.5-11.0)
[2020-01-22 04:01] LABS: Alanine Aminotransferase 16 IU/L (<50); Albumin Globulin Ratio 1.5 (1.0-2.8); Alkaline Phosphatase 68 U/L (38-126); Aspartate Aminotransferase 25 IU/L (17-59); BUN Creatinine Ratio 21.6 (6-22); Bilirubin Total 0.6 mg/dL (0.2-1.3); Blood Urea Nitrogen 24 mg/dL (9-20); Calcium 9.2 mg/dL (8.4-10.2); Carbon Dioxide 25 mmol/L (22-32); Chloride 106 mmol/L (98-107); Estimated Glomerular Filt Rate > 60.0 mL/min (>60); Globulin 2.6 g/dL (1.7-4.1); Glucose 130 mg/dL (80-110); HEMOLYSIS < 15 (0-50); Lipase 192 U/L (23-300); Potassium 3.3 mmol/L (3.4-5.1); Sodium 136 mmol/L (137-145); Total Protein 6.6 g/dL (6.3-8.2)
--- NOTE | 2020-01-22 04:02 | DI.CT.S_ITS ---
PROCEDURE: CT HEAD/BRAIN WO CON INDICATIONS: headache with Altered mental status TECHNIQUE: Noncontrast 4.5 mm thick angled axial sections acquired from the foramen magnum to the vertex, with coronal and sagittal reformats. For radiation dose reduction, the following was used: automated exposure control, adjustment of mA and/or kV according to patient size. COMPARISON: [facility], CT, CT STROKE, 09/13/2019, 23:30. [facility], CT, CT ANGIO HEAD AND NECK, 09/13/2019, 23:30. [facility], MR, MR STROKE, 08/28/2019, 9:04. [facility], CT, CT HEAD/BRAIN WO CON, 08/16/2019, 12:31. [facility], CT, CT HEAD/BRAIN WO CON, 08/27/2019, 13:13. FINDINGS: Image quality: Excellent. CSF spaces: Basal cisterns are patent. No extra-axial fluid collections. The ventricles are symmetric in size and shape. Brain: No intracranial bleeds or masses. There is cerebral volume loss for age, with resultant ventricular and sulcal prominence. There are periventricular and deep white matter chronic small vessel ischemic changes. There is intracranial internal carotid artery atherosclerosis. Skull and face: Calvarium and visualized facial bones appear intact, without suspicious lesions. Sinuses: Visualized sinuses and mastoids are clear. Dentures are partially visualized. IMPRESSION: No acute intracranial hemorrhage is seen. No acute intracranial process is seen. Unremarkable intracranial study for age. Stable from prior. Note: No significant discrepancy from the preliminary report. Dictated by: Juvenal Simons M.D. on 01/22/2020 at 7:33 Approved by: Juvenal Simons M.D. on 01/22/2020 at 7:35
[2020-01-22 04:15] LABS: Bacteria Urine None Seen; RBC Urine None Seen (0-5/HPF); WBC Urine None Seen (0-5/HPF)
[2020-01-22 04:17] LABS: Lactate (Lactic Acid) 2.4 mmol/L (0.7-2.1)
[2020-01-22 04:22] LABS: Appearance Urine UA CLEAR; Bilirubin Urine UA NEGATIVE (NEGATIVE); Color Urine UA YELLOW; Glucose Urine UA NEGATIVE (Negative); Ketones Urine UA 1+ (NEGATIVE); Leukocyte Esterase Urine UA NEGATIVE (NEGATIVE); Nitrite Urine UA NEGATIVE (Negative); Occult Blood Urine UA NEGATIVE (Negative); Protein Urine UA NEGATIVE (Negative); Urobilinogen Urine UA 0.2 E.U./dL (0.2)
[2020-01-22 04:30] LABS: Culture Indicated Urine Cult Not Indicated; Urine Comments Microscopic Normal
[2020-01-22 04:36] LABS: Procalcitonin < 0.05 ng/mL (<0.5)
[2020-01-22 04:38] LABS: COVID19 -Nasal RAPID Negative (Negative)
[2020-01-22] MEDS: ACETAMINOPHEN 325 MG TABLET 650 MG PO (05:40)
[2020-01-22 06:09] LABS: Reflexed Lactate in 2 Hours Y
== END 2020-01-22 05:48 | disposition home or self-care (01) ==
PROVIDERS: Emergency Provider Emergency Medicine; PCP Student in an Organized Health Care Education/Training Program
DX: R51.9 Headache, unspecified (principal); G20 Parkinson's disease; Z86.73 Personal history of transient ischemic attack (TIA), and cerebral infarction without residual deficits; I10 Essential (primary) hypertension; I25.10 Atherosclerotic heart disease of native coronary artery without angina pectoris
CPT/HCPCS: 36415; 70450; 80053; 81001; 83605; 83690; 84145; 85025; 87040; 87635; 99284

== ENCOUNTER 2021-03-03 03:22 | Observation (INO) | payer MEDICARE, OTHER, SELFPAY ==
[2019-09-17 10:35] VITALS: BMI 22.9
[2021-03-03] VITALS (26 sets, daily range): BP systolic 125–179; BP diastolic 56–79; PULSE 65–107; RESP 6–39; TEMP 36.3–37.7; O2SAT 91–97; BMI 21.6
--- NOTE | 2021-03-03 03:23 | DI.RAD.S_ITS ---
PROCEDURE: XR CHEST 1V INDICATIONS: septic, hypoxemic TECHNIQUE: One view of the chest was acquired. COMPARISON: [facility], CT, CT CHEST ABD PEL W CON, 03/03/2021, 5:00. [facility], CR, XR CHEST 1V, 08/16/2019, 12:08. FINDINGS: Surgical changes and devices: Post CABG changes are seen. Lungs and pleura: No pneumothorax is seen. No significant pleural effusion. No focal infiltrate. Low lung volumes are noted. This causes a crowded appearance to the lung markings and limits evaluation. Mediastinum: Mediastinal contours appear normal. Heart size is normal. Atherosclerotic calcification of the aortic arch is noted. Bones and chest wall: No suspicious bony lesions. Age-appropriate bony degenerative changes are seen. Overlying soft tissues appear unremarkable. IMPRESSION: Limited portable chest examination, without a significant cardiopulmonary abnormality identified. Postoperative and degenerative changes are seen. Note: No significant discrepancy from the preliminary report. Dictated by: Juvenal Simons M.D. on 03/03/2021 at 8:08 Approved by: Juvenal Simons M.D. on 03/03/2021 at 8:09
--- NOTE | 2021-03-03 03:27 | ED_ITS ---
HPI - Sepsis General Chief Complaint: Weakness Mode of arrival: EMS Source: patient and EMS Limitations: no limitations Evaluation Sepsis Screen: Possible Sepsis Risk Sepsis Infection Criteria Present: Suspected New Infection Narrative: 80-year-old male nonsmoker with history of coronary artery disease and Parkinson's presents by EMS for evaluation of fever, shaking chills, abdominal pain and altered mental status. He has been complaining of abdominal pain for about the past 2 weeks, states that he does have a history of constipation and they have tried some stool softeners with minimal improvement. He started getting worse this evening and became sleepy your than normal, had a poor appetite and did not use complete dinner. He has had no complaints of headache or sore throat nor any significant cough or shortness of breath. She helped get him to bed and a few hours later she heard a noise and he had fallen onto the ground without obvious injury but clearly weak and not at his baseline. He has had frequent urination. He is a poor historian and much of the history comes from the paramedics through his Patient History Medical History (Updated 03/03/21 @ 06:15 by Carlos A Frausto DO) Anxiety Arthritis Bilateral thigh pain Chicken pox Chickenpox (Unknown) Chronic back pain (1965) Chronic fatigue (2014) Colon polyps (2010) Coronary artery disease Depression (2014) Erectile dysfunction Foot pain (~2016) Hiatal hernia Hiatal hernia Hypercholesterolemia Hypertension Mumps (Unknown) Mumps Panic attacks Parkinson's disease (2014) Proximal muscle weakness Surgical History Anesthesia History of colonoscopy with polypectomy (11/19/17) History of colonoscopy with polypectomy (2009) History of tonsillectomy and adenoidectomy S/P CABG (coronary artery bypass graft) (06/2003) Status post coronary artery bypass graft Status post tonsillectomy and adenoidectomy Family History Father CAD (coronary artery disease) CVA (cerebral vascular accident) Hypertension Diabetes mellitus Heart attack Brain cancer Mother Hypertension Dementia Grandmother Diabetes mellitus Grandfather No problems noted. Brother No problems noted. Sister No problems noted. Social History household members: spouse Smoking Status: Never smoker alcohol intake: former Smoking Status: Never smoker alcohol intake frequency: 0-2 drinks per day Substance Use Type: does not use Exam Narrative Exam Narrative: GENERAL: [80 year old patient appears stated age. Well-developed patient, in moderate distress, pleasantly confused, GCS 14 HEAD: Atraumatic. Normocephalic. EYES: Pupils equal round and reactive. Extraocular motions intact. No scleral icterus. No injection or drainage. ENT: Dry mucous membranes Nose without bleeding, purulent drainage. Throat wit hout erythema, tonsillar hypertrophy or exudate. Airway patent. NECK: Trachea midline. Non tender CARDIOVASCULAR: Regular rate and rhythm without murmurs, gallops, or rubs. RESPIRATORY: Clear to auscultation. Breath sounds equal bilaterally. No wheezes, rales, or rhonchi. Initially tachypneic in the mid 20s with pulse ox in the upper 80s, this resolves over the 1st hour or 2 GASTROINTESTINAL: Abdomen soft, mild generalized lower abdominal tenderness, bowel sounds present nondistended. EXTREMITIES: No edema or joint tenderness. BACK: Nontender without deformity or crepitance. No flank tenderness. NEURO: Cranial nerves 2-12 grossly intact SKIN: No rash or erythema of visible areas Initial Vital Signs Initial Vital Signs: Vital Signs Temperature 99.1 F 03/03/21 03:19 Pulse Rate 107 H 03/03/21 03:19 Respiratory Rate 29 H 03/03/21 03:19 Blood Pressure 169/79 H 03/03/21 03:19 Pulse Oximetry 95 03/03/21 03:19 Course Course Course Narrative: Given tachycardia, tachypnea, fever and suspicion of infection patient was activated as a sepsis risk, lactate, blood cultures ordered. Fluids at 30 cc/kilogram ordered antibiotics given after 2nd blood culture. Initial lactate is 3.9, labs were relatively unremarkable, urine is not as convincing a potential source of infection as we may have initially thought. Imaging would suggest possibly enteritis but no surgical abnormality in patient's abdomen. No significant pneumonia noted on imaging. Patient requires hospitalization due to his septic presentation, will need fluid resuscitation, ongoing antibiotics, at least until blood cultures return. Orders Ordered: ED Orders 03/03/21 03:23 XR chest 1V Stat 03/03/21 03:25 COVID19 -Nasal swab/Pre-Proc Stat 03/03/21 03:33 Complete Blood Count AUTO DIFF Stat Comprehensive Metabolic Panel Stat Lactate (Lactic Acid) Stat Procalcitonin Stat Troponin & CK Cardiac Panel Stat 03/03/21 03:39 EKG-12 Lead Stat 03/03/21 03:50 Blood Culture Stat 03/03/21 04:10 Urinalysis and Microscopic Stat 03/03/21 04:46 CT chest abd pel w con Stat Discontinued Medications Lactated Ringer's (Lactated Ringers) 1,769.01 mls @ 589.67 mls/hr 30 ml/kg infuse over 3 hr (1769.01 ml) IV NOW ONE Stop: 03/03/21 06:27 Last Infusion: 03/03/21 07:06 Dose: 0 mls/hr Documented by: Admin: 03/03/21 03:38 Dose: 589.67 mls/hr Documented by: BERRY Levofloxacin (Levaquin) 750 mg in 150 mls @ 100 mls/hr IV NOW ONE Stop: 03/03/21 04:59 Last Infusion: 03/03/21 06:15 Dose: 0 mls/hr Documented by: Admin: 03/03/21 04:06 Dose: 100 mls/hr Documented by: BERRY Lidocaine HCl (Lidocaine 2% (Glydo) 6 Ml Gel) 6 ml TOP NOW ONE Stop: 03/03/21 05:56 Last Admin: 03/03/21 06:14 Dose: 6 ml Documented by: FRED Vital Signs Vital signs: Vital Signs - 8 hr 03/03/21 03:19 03/03/21 03:30 03/03/21 04:00 Temperature 99.1 F Pulse Rate 107 H 106 H 103 H Respiratory Rate 29 H 38 H 27 H Blood Pressure 169/79 H 154/71 H 161/72 H Pulse Oximetry 95 94 91 03/03/21 04:30 03/03/21 05:37 Temperature Pulse Rate 99 H 93 H Respiratory Rate 8 L 20 Blood Pressure 157/68 H 151/70 H Pulse Oximetry 96 Sepsis Guideline Criteria Level 1 - Infection Sepsis Infection Criteria Present: Suspected New Infection Level 2 - SIRS Sepsis SIRS Criteria Present: Respiratory Rate > 20 bpm or PaCO2 < 32 mmHg and Pulse > 90 bpm Level 3 - Organ Dysfunction Sepsis Organ Dysfunction Criteria Present: New/Unexplained Change in Mental Status and Lactic Acid > 2 mmol/L Response It is my opinion that his patient have a likely infectious etiology for meeting sepsis criteria: Does Possible Source Possible source sepsis: pulmonary, GI tract/intra-abdominal and genitourinary Treatment Initiated Fluids: 30mL/kg of IV crystalloid fluid within 1st hour.: ABW used Antibiotics:: IV antimicrobials will be initiated as soon as possible after recognition of sepsis state and within one hour for both sepsis and septic shock. MDM - Sepsis Differential Diagnosis Possible source sepsis: pulmonary, GI tract/intra-abdominal and genitourinary Lab Data Result diagrams: 03/03/21 03:33 03/03/21 03:33 Labs: Lab Results 03/03/21 03/03/21 03/03/21 Range/Units 03:25 03:33 03:33 WBC 8.3 (4.5-11.0) X10^3/uL RBC 4.40 L (4.5-5.9) X10^6/uL Hgb 13.6 (13.5-17.5) g/dL Hct 40.4 L (41-53) % MCV 91.8 (80-100) fL MCH 31.0 (26-34) PG MCHC 33.8 (30-36) % RDW 13.0 (11.6-14.8) % Plt Count 145 L (150-400) X10^3/uL Neut % (Auto) 86.4 H (50-75) % Lymph % (Auto) 7.7 L (25-40) % [place] % (Auto) 5.5 (3-14) % Eos % (Auto) 0.1 L (2-4) % Baso % (Auto) 0.3 (0-2) % Neut # (Auto) 7200 H (7908-4513) /uL Lymph # (Auto) 600 L (1851-1627) /uL [place] # (Auto) 500 (0-900) /uL Eos # (Auto) 0 (0-450) /uL Baso # (Auto) 0 (0-100) /uL Sodium 140 (137-145) mmol/L Potassium 3.5 (3.4-5.1) mmol/L Chloride 102 (98-107) mmol/L Carbon Dioxide 33 H (22-32) mmol/L BUN 12 (9-20) mg/dL Creatinine 0.96 (0.66-1.25) mg/dL Estimated GFR > 60.0 (>60) mL/min BUN/Creatinine Ratio 12.5 (6-22) Glucose 124 H (80-110) mg/dL Lactate (0.7-2.1) mmol/L Calcium 9.9 (8.4-10.2) mg/dL Total Bilirubin 0.7 (0.2-1.3) mg/dL AST 28 (17-59) IU/L ALT 11 (<50) IU/L Alkaline Phosphatase 58 (38-126) U/L Total Creatine Kinase 115 (55-170) U/L CK-MB (CK-2) 1.39 (<2.37) ng/mL CK-MB (CK-2) Rel Index 1.2 L (1.5-5.0) % Troponin I 0.027 (0.01-0.034) ng/mL Total Protein 7.2 (6.3-8.2) g/dL Albumin 4.4 (3.5-5.0) g/dL Globulin 2.8 (1.7-4.1) g/dL Albumin/Globulin Ratio 1.6 (1.0-2.8) Procalcitonin 0.05 (<0.5) ng/mL Urine Color Urine Appearance Urine pH (4.5-8.0) Ur Specific [place] (1.000-1.035) Urine Protein (Negative) Urine Glucose (UA) (Negative) g/dL Urine Ketones (NEGATIVE) Urine Occult Blood (Negative) Urine Nitrate (Negative) Urine Bilirubin (NEGATIVE) Urine Urobilinogen (0.2) E.U./dL Ur Leukocyte Esterase (NEGATIVE) Urine RBC (0-5/HPF) Urine WBC (0-5/HPF) Urine Bacteria (None) Hyaline Casts (None) Urine Mucus (Negative) Ur Culture Indicated? SARS-CoV-2 (PCR) Negative (Negative) 03/03/21 03/03/21 03/03/21 Range/Units 03:33 04:10 04:33 WBC (4.5-11.0) X10^3/uL RBC (4.5-5.9) X10^6/uL Hgb (13.5-17.5) g/dL Hct (41-53) % MCV (80-100) fL MCH (26-34) PG MCHC (30-36) % RDW (11.6-14.8) % Plt Count (150-400) X10^3/uL Neut % (Auto) (50-75) % Lymph % (Auto) (25-40) % [place] % (Auto) (3-14) % Eos % (Auto) (2-4) % Baso % (Auto) (0-2) % Neut # (Auto) (2881-6519) /uL Lymph # (Auto) (3939-5123) /uL [place] # (Auto) (0-900) /uL Eos # (Auto) (0-450) /uL Baso # (Auto) (0-100) /uL Sodium (137-145) mmol/L Potassium (3.4-5.1) mmol/L Chloride (98-107) mmol/L Carbon Dioxide (22-32) mmol/L BUN (9-20) mg/dL Creatinine (0.66-1.25) mg/dL Estimated GFR (>60) mL/min BUN/Creatinine Ratio (6-22) Glucose (80-110) mg/dL Lactate 3.9 H 1.2 (0.7-2.1) mmol/L Calcium (8.4-10.2) mg/dL Total Bilirubin (0.2-1.3) mg/dL AST (17-59) IU/L ALT (<50) IU/L Alkaline Phosphatase (38-126) U/L Total Creatine Kinase (55-170) U/L CK-MB (CK-2) (<2.37) ng/mL CK-MB (CK-2) Rel Index (1.5-5.0) % Troponin I (0.01-0.034) ng/mL Total Protein (6.3-8.2) g/dL Albumin (3.5-5.0) g/dL Globulin (1.7-4.1) g/dL Albumin/Globulin Ratio (1.0-2.8) Procalcitonin (<0.5) ng/mL Urine Color [place] Urine Appearance Clear Urine pH 7.0 (4.5-8.0) Ur Specific [place] 1.015 (1.000-1.035) Urine Protein Trace H (Negative) Urine Glucose (UA) Trace H (Negative) g/dL Urine Ketones 1+ H (NEGATIVE) Urine Occult Blood Negative (Negative) Urine Nitrate Negative (Negative) Urine Bilirubin Negative (NEGATIVE) Urine Urobilinogen 0.2 (0.2) E.U./dL Ur Leukocyte Esterase Negative (NEGATIVE) Urine RBC None seen (0-5/HPF) Urine WBC None seen (0-5/HPF) Urine Bacteria Occasional (0-1) (None) Hyaline Casts 5-10/lpf (None) Urine Mucus 3+ H (Negative) Ur Culture Indicated? Cult not indicated SARS-CoV-2 (PCR) (Negative) MDM Narrative Medical decision making narrative: 0610 - patient making sufficient urine, HR down to the 90s, and Respirations improved after above stated therapies Discharge Plan Departure Patient Disposition: Admitted As Inpatient Clinical Impression: Sepsis
[2021-03-03] MEDS: LACTATED RINGERS 1,769.01 ML 589.67 ML IV (03:38)
[2021-03-03 03:41] LABS: Add Manual Diff / Slide Review NO; Basophils Absolute Auto 0 /uL (0-100); Basophils Percent Auto 0.3 % (0-2); Eosinophils Absolute Auto 0 /uL (0-450); Eosinophils Percent Auto 0.1 % (2-4); Hematocrit 40.4 % (41-53); Hemoglobin 13.6 g/dL (13.5-17.5); Lymphocytes Absolute Auto 600 /uL (1100-4500); Lymphocytes Percent Auto 7.7 % (25-40); Mean Corpuscular HGB Conc 33.8 % (30-36); Mean Corpuscular Volume 91.8 fL (80-100); Monocytes Absolute Auto 500 /uL (0-900); Monocytes Percent Auto 5.5 % (3-14); Neutrophils Absolute Auto 7200 /uL (1500-7000); Neutrophils Percent Auto 86.4 % (50-75); Platelet Count 145 X10^3/uL (150-400); White Blood Cell Count 8.3 X10^3/uL (4.5-11.0)
[2021-03-03 03:45] LABS: Lactate (Lactic Acid) 3.9 mmol/L (0.7-2.1)
[2021-03-03 03:46] LABS: Alanine Aminotransferase 11 IU/L (<50); Albumin 4.4 g/dL (3.5-5.0); Albumin Globulin Ratio 1.6 (1.0-2.8); Alkaline Phosphatase 58 U/L (38-126); Aspartate Aminotransferase 28 IU/L (17-59); BUN Creatinine Ratio 12.5 (6-22); Bilirubin Total 0.7 mg/dL (0.2-1.3); Blood Urea Nitrogen 12 mg/dL (9-20); Calcium 9.9 mg/dL (8.4-10.2); Carbon Dioxide 33 mmol/L (22-32); Chloride 102 mmol/L (98-107); Creatine Kinase 115 U/L (55-170); Estimated Glomerular Filt Rate > 60.0 mL/min (>60); Globulin 2.8 g/dL (1.7-4.1); Glucose 124 mg/dL (80-110); HEMOLYSIS < 15 (0-50); Potassium 3.5 mmol/L (3.4-5.1); Sodium 140 mmol/L (137-145); Total Protein 7.2 g/dL (6.3-8.2)
[2021-03-03 03:58] LABS: Troponin I 0.027 ng/mL (0.01-0.034)
[2021-03-03 04:01] LABS: CKMB % Relative Index 1.2 % (1.5-5.0); Creatine Kinase MB 1.39 ng/mL (<2.37)
[2021-03-03 04:03] LABS: Procalcitonin 0.05 ng/mL (<0.5)
[2021-03-03 04:05] LABS: COVID19 -Nasal RAPID Negative (Negative)
[2021-03-03] MEDS: levoFLOXacin 750 MG/150 ML PIGGYBACK 100 MG IV (04:06)
[2021-03-03 04:27] LABS: Appearance Urine UA CLEAR; Bilirubin Urine UA NEGATIVE (NEGATIVE); Glucose Urine UA TRACE g/dL (Negative); Ketones Urine UA 1+ (NEGATIVE); Leukocyte Esterase Urine UA NEGATIVE (NEGATIVE); Nitrite Urine UA NEGATIVE (Negative); Occult Blood Urine UA NEGATIVE (Negative); Protein Urine UA TRACE (Negative); Specific Gravity Urine UA 1.015 (1.000-1.035); Urobilinogen Urine UA 0.2 E.U./dL (0.2)
[2021-03-03 04:30] LABS: Color Urine UA Amber
--- NOTE | 2021-03-03 04:46 | DI.CT.S_ITS ---
PROCEDURE: CT CHEST ABD PEL W CON INDICATIONS: septic, abdominal pain TECHNIQUE: After the administration of oral and intravenous contrast, axial sections acquired from the supraclavicular neck to the pubic symphysis. Coronal and sagittal reformats were performed. For radiation dose reduction, the following was used: automated exposure control, adjustment of mA and/or kV according to patient size. COMPARISON: [facility], US, RENAL COMPLETE, 01/23/2012, 13:21. [facility], CT, CT ABDOMEN PELVIS W CON, 08/16/2019, 13:37. [facility], CR, XR CHEST 1V, 03/03/2021, 3:29. FINDINGS: Image quality: Excellent. CHEST: Lower Neck: No enlarged lymph nodes. Thyroid: Within normal limits. Axillae: No enlarged lymph nodes. Chest Wall: Unremarkable. Lungs and Airways: No consolidation or suspicious nodules. Pleura: No pneumothorax or pleural effusions. Heart: Post CABG changes are seen. Heart size is mildly enlarged. No pericardial effusion. At least moderate coronary artery calcification can be seen. Thoracic Vessels: The aorta and pulmonary arteries demonstrate normal size. Mediastinum and Maia: No enlarged lymph nodes. Esophagus: No wall thickening. No hiatal hernia. ABDOMEN: Liver: Along the posterior periphery of the right lobe of the liver, there is again seen a hyperenhancing lesion with apparent peripheral nodular enhancement measures up to 2.2 cm. The liver demonstrates normal size and demonstrates no additional enhancing lesions. A likely subcentimeter cyst can be seen within the left liver, as on series 2, image 53. Gallbladder: Layering gallstones can be seen within the gallbladder neck, as on series 2, image 65. Biliary ducts: Unremarkable. Pancreas: Unremarkable. Spleen: The spleen demonstrates normal size and demonstrates no suspicious lesions. Calcified granulomas can be seen within the spleen. Adrenal Glands: Unremarkable. Kidneys and Ureters: The kidneys demonstrate normal size and enhance symmetrically. There is no hydronephrosis. At the inferior pole of the left kidney, there is a low-density lesion seen that measures approximately 1 cm. The internal density is approximately 30 Hounsfield units. Stomach and Bowel: The gastric wall is thickened proximally. No findings perforation can be seen. No dilated loops of small bowel are seen. The small bowel loops are fluid-filled. Distal colonic diverticulosis is seen, without findings of active diverticulitis. Fluid can be seen within the colon, although there is mild forming stool seen distally. No significant focal colonic abnormality can be seen. Peritoneum: No abnormal intraperitoneal fluid. No free air. Ventral Wall: No hernia. Abdominal Nodes: No retroperitoneal or mesenteric adenopathy by size criteria. Vessels: Aorta and inferior vena cava are normal in size. Atherosclerotic calcification is noted. PELVIS:. Pelvic Organs: Prostate is enlarged, measuring 6.2 cm transversely. The prostate demonstrates a lobulated appearance. Mass effect can be seen upon the floor of the bladder. Bladder: Unremarkable. Pelvic Nodes: No enlarged lymph nodes. Miscellaneous: No inguinal hernias are seen. Bones: Degenerative changes are seen throughout, which are overall worst at the L4-L5 level. IMPRESSION: Nondilated loops of small bowel are seen and there is fluid seen with proximal colon. Enteritis is suspected. Gastric wall thickening proximally. Please consider gastritis versus artifact from incomplete distention. No findings of perforation or abscess can be seen. At the inferior pole of the left kidney, there is a low-density lesion that cannot be defined as a simple cysts, yet may represent a hyperdense cyst. When clinically appropriate, please consider a dedicated renal ultrasound for further evaluation. Incidental note is made of: CABG At least moderate coronary artery calcification Gallstones Likely liver hemangioma Prior granulomatous exposure. Diverticulosis, without active diverticulitis Enlarged prostate Focal L4-L5 degenerative change Note: This case (including differences between this final report and the preliminary report) discussed by telephone with Dr. Frausto at 7:20 a.m. [place] time on March 03, 2021. Dictated by: Juvenal Simons M.D. on 03/03/2021 at 7:09 Approved by: Juvenal Simons M.D. on 03/03/2021 at 7:22
[2021-03-03 04:48] LABS: Bacteria Urine Occasional (0-1); Culture Indicated Urine Cult Not Indicated; Hyaline Casts Urine 5-10/LPF; Mucus Urine 3+ (Negative); RBC Urine None Seen (0-5/HPF); WBC Urine None Seen (0-5/HPF)
[2021-03-03 05:33] LABS: Reflexed Lactate in 2 Hours Y
[2021-03-03 06:03] LABS: Lactate 2HR (Lactic Acid Rflx) 1.2 mmol/L (0.7-2.1)
[2021-03-03] MEDS: LIDOCAINE 2% (GLYDO) 6 ML GEL TOP (06:14)
--- NOTE | 2021-03-03 14:19 | P.HP_ITS ---
History of Present Illness History of Present Illness Date Patient Seen: 03/03/21 Chief complaint: ABD pain x2 weeks, GLF Narrative: The patient is a 80-year-old male, hyperlipidemia, Parkinson's disease, coronary artery disease, chronic back pain, hypertension, who presents for a multitude of complaints. The patient's reports that he was well until yesterday. Apparently he was somewhat confused in the evening. He went to bed. She tried to arouse him for dinner and he remains sleepy. Later that night the patient was in bed ?screaming all night, he was agitated, calling for his to ?help me help me. This occurred until about 3:00 a.m. Patient was noted to have some shaking chills. He also had complaints of abdominal pain. The patient does see a neurologist, and was recently diagnosed with truncal dystonia. He has chronic shortness of breath which has been present for several months. He has lost about 30 lb over the past year unintentionally. Per his he had no fever at home, no cough, no vomiting, no dysuria, no painful urination. Patient was evaluated in the emergency department. He was febrile to 99.1, her white count was 8.3, hemoglobin 13.6, hematocrit 40.4. His electrolytes were unremarkable as were his liver function tests and procalcitonin. His initial lactate was elevated at 3.9 but repeat was 1.2. Urinalysis was unremarkable. Chest x-ray was negative. CT of the abdomen and pelvis revealed nondilated loops of small bowel, fluid seen in the proximal colon, question enteritis, gastric wall thickening prominently, no findings of perforation or abscess. There is a low- density lesion in the left pole of the kidney that may represent a hyperdense cyst, there was incidental note made of gallstones, liver hemangioma, diverticulosis without diverticulitis, and enlarged prostate, and L4-L5 degenerative changes. Patient was started on antibiotics in the emergency room. He was admitted to the hospital for further evaluation. Patient History Medical History Anxiety Arthritis Bilateral thigh pain Chicken pox Chickenpox (Unknown) Chronic back pain (1965) Chronic fatigue (2014) Colon polyps (2010) Coronary artery disease Depression (2015) Erectile dysfunction Foot pain (~2017) Hiatal hernia Hiatal hernia Hypercholesterolemia Hypertension Mumps (Unknown) Mumps Panic attacks Parkinson's disease (2015) Proximal muscle weakness Surgical History Anesthesia History of colonoscopy with polypectomy (11/19/17) History of colonoscopy with polypectomy (2009) History of tonsillectomy and adenoidectomy S/P CABG (coronary artery bypass graft) (06/2003) Status post coronary artery bypass graft Status post tonsillectomy and adenoidectomy Family & Social History Family History Father CAD (coronary artery disease) CVA (cerebral vascular accident) Hypertension Diabetes mellitus Heart attack Brain cancer Mother Hypertension Dementia Grandmother Diabetes mellitus Grandfather No problems noted. Brother No problems noted. Sister No problems noted. Social History: household members spouse Prior Living Arrangements House Safety & Behavioral: Feels Safe in Current Yes Environment Been Physically Hurt or No Threatened By a Person Suicidal Ideation Description None Suicide Plan Description No Plan Tobacco & Substance use: Smoking Status Never smoker alcohol intake former alcohol intake frequency 0-2 drinks per day Substance Use Type does not use Meds Home Medications and Allergies Home Medications Medication Instructions Recorded Confirmed Type carbidopa ER 50 mg-levodopa 200 mg 1 tab PO QID 90 Days tab 01/13/18 03/03/21 History tablet,extended release donepezil 10 mg tablet 20 mg PO BEDTIME 90 Days tab 01/13/18 03/03/21 History melatonin 10 mg capsule 10 mg PO BEDTIME PRN 01/13/18 03/03/21 History cholecalciferol (vitamin D3) 50 50 mcg PO DAILY 12/02/19 03/03/21 History mcg (2,000 unit) capsule docusate sodium 100 mg capsule 100 mg PO BID 12/02/19 03/03/21 History (Dulcolax Stool Softener (docusate)) folic acid 400 mcg tablet 0.4 mg PO DAILY 12/02/19 03/03/21 History saw palmetto 450 mg capsule 450 mg PO DAILY cap 12/02/19 03/03/21 History fluticasone propionate 50 1 spray INTRANASAL BID 01/18/21 03/03/21 History mcg/actuation nasal spray,suspension citalopram 20 mg tablet (Celexa) 20 mg PO QDAY #90 tab 01/25/21 03/03/21 Rx clonazepam 1 mg tablet 1.5 mg PO BID #270 tab 01/25/21 03/03/21 Rx mirtazapine 45 mg tablet 45 mg PO BEDTIME #90 tab 01/25/21 03/03/21 Rx pravastatin 20 mg tablet 20 mg PO BEDTIME #60 tab 02/26/21 03/03/21 Rx omeprazole 20 mg capsule,delayed 20 mg PO QAM 03/03/21 03/03/21 History release tamsulosin 0.4 mg capsule 0.4 mg PO BEDTIME 03/03/21 03/03/21 History Allergies Allergy/AdvReac Type Severity Reaction Status Date / Time No Known Drug Allergies Allergy Verified 02/07/21 16:04 Review of Systems Review of Systems Narrative: Ten point review of systems is negative Exam Vital Signs (past 8 hours): - 03/03/21 06:30 03/03/21 07:00 03/03/21 07:30 Pulse Rate 96 H 95 H 96 H Respiratory Rate 26 H 17 23 Blood Pressure Pulse Oximetry 95 97 95 03/03/21 08:00 03/03/21 08:30 03/03/21 09:00 Pulse Rate 92 H 87 81 Respiratory Rate 25 H 9 L 13 Blood Pressure Pulse Oximetry 94 95 95 03/03/21 09:30 03/03/21 10:00 03/03/21 10:30 Pulse Rate 78 79 77 Respiratory Rate 10 L 6 L 7 L Blood Pressure 155/70 H Pulse Oximetry 94 94 93 03/03/21 11:00 03/03/21 11:30 03/03/21 12:00 Pulse Rate 77 75 77 Respiratory Rate 17 20 19 Blood Pressure 160/72 H 157/71 H 167/71 H Pulse Oximetry 95 94 95 03/03/21 12:30 03/03/21 13:00 Pulse Rate 80 78 Respiratory Rate 24 21 Blood Pressure 179/75 H 153/71 H Pulse Oximetry 93 94 Oxygen Delivery Method Room Air Narrative Exam Narrative: Chronically ill-appearing male lying in bed with resting tremor HENMT Other: HEENT: Normocephalic atraumatic, extraocular muscles are intact, oropharynx reveals dry make mucous membranes, neck is supple without adenopathy Resp Other: Lungs are clear to auscultation Cardio Other: Cardiac exam: Regular rate and rhythm normal S1-S2 GI Other: Abdomen: Scaphoid, soft, tender in the midepigastric area, no rebound tenderness, no board-like rigidity, no palpable masses Skin Other: No lesions noted Neuro Other: Resting tremor, lungs symmetric and equal in the upper extremity, sensation appears to be intact Extrem Other: No edema Psych Other: Patient is withdrawn with somewhat flat affect Objective Labs Result Diagrams: 03/03/21 03:33 03/03/21 03:33 Labs: Laboratory Results - last 24 hr 03/03/21 03/03/21 03/03/21 03:25 03:33 03:33 WBC 8.3 RBC 4.40 L Hgb 13.6 Hct 40.4 L MCV 91.8 MCH 31.0 MCHC 33.8 RDW 13.0 Plt Count 145 L Neut % (Auto) 86.4 H Lymph % (Auto) 7.7 L [place] % (Auto) 5.5 Eos % (Auto) 0.1 L Baso % (Auto) 0.3 Neut # (Auto) 7200 H Lymph # (Auto) 600 L [place] # (Auto) 500 Eos # (Auto) 0 Baso # (Auto) 0 Sodium 140 Potassium 3.5 Chloride 102 Carbon Dioxide 33 H BUN 12 Creatinine 0.96 Estimated GFR > 60.0 BUN/Creatinine Ratio 12.5 Glucose 124 H Lactate Calcium 9.9 Total Bilirubin 0.7 AST 28 ALT 11 Alkaline Phosphatase 58 Total Creatine Kinase 115 CK-MB (CK-2) 1.39 CK-MB (CK-2) Rel Index 1.2 L Troponin I 0.027 Total Protein 7.2 Albumin 4.4 Globulin 2.8 Albumin/Globulin Ratio 1.6 Procalcitonin 0.05 Urine Color Urine Appearance Urine pH Ur Specific [place] Urine Protein Urine Glucose (UA) Urine Ketones Urine Occult Blood Urine Nitrate Urine Bilirubin Urine Urobilinogen Ur Leukocyte Esterase Urine RBC Urine WBC Urine Bacteria Hyaline Casts Urine Mucus Ur Culture Indicated? SARS-CoV-2 (PCR) Negative 03/03/21 03/03/21 03/03/21 03:33 04:10 04:33 WBC RBC Hgb Hct MCV MCH MCHC RDW Plt Count Neut % (Auto) Lymph % (Auto) [place] % (Auto) Eos % (Auto) Baso % (Auto) Neut # (Auto) Lymph # (Auto) [place] # (Auto) Eos # (Auto) Baso # (Auto) Sodium Potassium Chloride Carbon Dioxide BUN Creatinine Estimated GFR BUN/Creatinine Ratio Glucose Lactate 3.9 H 1.2 Calcium Total Bilirubin AST ALT Alkaline Phosphatase Total Creatine Kinase CK-MB (CK-2) CK-MB (CK-2) Rel Index Troponin I Total Protein Albumin Globulin Albumin/Globulin Ratio Procalcitonin Urine Color [place] Urine Appearance Clear Urine pH 7.0 Ur Specific [place] 1.015 Urine Protein Trace H Urine Glucose (UA) Trace H Urine Ketones 1+ H Urine Occult Blood Negative Urine Nitrate Negative Urine Bilirubin Negative Urine Urobilinogen 0.2 Ur Leukocyte Esterase Negative Urine RBC None seen Urine WBC None seen Urine Bacteria Occasional (0-1) Hyaline Casts 5-10/lpf Urine Mucus 3+ H Ur Culture Indicated? Cult not indicated SARS-CoV-2 (PCR) Assessment & Plan Assessment & Plan narrative: 80-year-old male with a history of Parkinson's disease, hyperlipidemia, coronary disease, hypertension, back pain who presents with confusion, fever and chills, with probable sepsis * Patient's predominant symptom is acute metabolic encephalopathy * This is likely related to some underlying issue * Patient presented with an elevated temperature, elevated lactate, and CT findings showing probable enteritis * Agree with antibiotics, will add Flagyl to levofloxacin * Given gallstones on exam and complaints of abdominal pain will obtain a lipase and abdominal ultrasound to rule out acute cholecystitis * Will initiate IV fluids * Will follow-up blood cultures Parkinson's disease * Will continue carbidopa levodopa * PT OT consultation given the patient's increasing difficulty with mobility Acute metabolic encephalopathy * Suspect this is multifactorial may in fact be related to Parkinson's, with early dementia * Continue donepezil * Continue mirtazapine GERD * Continue PPI Hyperlipidemia * Continue statin Depression * Continue Celexa BPH * Continue tamsulosin Will start Lovenox for DVT prophylaxis Patient will be admitted under observation Time Spent With Patient Critical Care time: I spent a total of [] minutes of critical care time on this patient's care today; this time is exclusive of procedural time. Quality VTE Deep Vein Thrombosis/Pulmonary Embolism Present on Admission: No MIPS - Admit I confirm the patient?s Advance Care Plan is present, Code status is documented, Surrogate decision maker is in patient?s record [If Yes, STOP here]: Yes
[2021-03-03 15:21] LABS: Lipase 66 U/L (23-300)
[2021-03-03 15:39] LABS: Procalcitonin 0.05 ng/mL (<0.5)
[2021-03-03] MEDS: DEXTROSE 5%-0.45% NS 1,000 ML 100 ML IV (16:19)
[2021-03-03] MEDS: metroNIDAZOLE 500 MG/100 ML PIGGYBACK 100 MG IV ×2 (16:23→23:21)
[2021-03-03] MEDS: CARBIDOPA-LEVODOPA ER 50/200 TABLET 1 EACH PO ×2 (16:24→20:49)
--- NOTE | 2021-03-03 18:25 | PC.NURSE ---
pt admitted to room from ED vss at BS oriented to self and place. bed alarmed and call light within reach. pt calls out often but doesnt want anything. no, No no no said several times but he states he doesnt know why. here to help pt with his dinner earlier, no choking noted and only took a few bites and became agitated with . Tele nsr denies pain
[2021-03-03] MEDS: DOCUSATE 100 MG CAPSULE PO (20:49)
[2021-03-03] MEDS: PRAVASTATIN 20 MG TABLET PO (20:49)
[2021-03-03] MEDS: MIRTAZAPINE 15 MG TABLET 45 MG PO (20:49)
[2021-03-03] MEDS: SENNOSIDES 8.6 MG TABLET 17.2 MG PO (20:49)
[2021-03-03] MEDS: TAMSULOSIN 0.4 MG CAPSULE PO (20:49)
[2021-03-03] MEDS: clonazePAM 0.5 MG TABLET 1.5 MG PO (20:50)
[2021-03-03] MEDS: FLUTICASONE 120 SPRAY/16 GM SPRAY.SUSP NASAL (20:50)
[2021-03-03] MEDS: DONEPEZIL 5 MG TABLET 20 MG PO (20:50)
[2021-03-03] MEDS: ACETAMINOPHEN 325 MG TABLET 650 MG PO (23:19)
[2021-03-04] VITALS (9 sets, daily range): BP systolic 120–151; BP diastolic 58–74; PULSE 55–83; RESP 14–16; TEMP 36.6–37.3; O2SAT 94–97
[2021-03-04] MEDS: DEXTROSE 5%-0.45% NS 1,000 ML 100 ML IV ×2 (04:31→15:26)
[2021-03-04] MEDS: PANTOPRAZOLE DR 20 MG TABLET PO (05:04)
[2021-03-04] MEDS: ACETAMINOPHEN 325 MG TABLET 650 MG PO ×2 (05:04→12:53)
[2021-03-04 05:55] LABS: Add Manual Diff / Slide Review NO; Basophils Absolute Auto 0 /uL (0-100); Basophils Percent Auto 0.6 % (0-2); Eosinophils Absolute Auto 0 /uL (0-450); Eosinophils Percent Auto 0.6 % (2-4); Hematocrit 33.9 % (41-53); Hemoglobin 11.6 g/dL (13.5-17.5); Lymphocytes Absolute Auto 1800 /uL (1100-4500); Lymphocytes Percent Auto 27.5 % (25-40); Mean Corpuscular HGB Conc 34.2 % (30-36); Mean Corpuscular Volume 90.6 fL (80-100); Monocytes Absolute Auto 600 /uL (0-900); Neutrophils Absolute Auto 3900 /uL (1500-7000); Neutrophils Percent Auto 61.3 % (50-75); Platelet Count 108 X10^3/uL (150-400); Red Blood Cell Count 3.74 X10^6/uL (4.5-5.9); Red Cell Distribution Width 13.5 % (11.6-14.8); White Blood Cell Count 6.4 X10^3/uL (4.5-11.0)
[2021-03-04 06:12] LABS: Albumin 3.1 g/dL (3.5-5.0); Albumin Globulin Ratio 1.3 (1.0-2.8); Alkaline Phosphatase 36 U/L (38-126); Aspartate Aminotransferase 46 IU/L (17-59); BUN Creatinine Ratio 10.7 (6-22); Bilirubin Total 0.6 mg/dL (0.2-1.3); Blood Urea Nitrogen 8 mg/dL (9-20); Calcium 8.8 mg/dL (8.4-10.2); Carbon Dioxide 31 mmol/L (22-32); Chloride 107 mmol/L (98-107); Estimated Glomerular Filt Rate > 60.0 mL/min (>60); Globulin 2.3 g/dL (1.7-4.1); Glucose 128 mg/dL (80-110); HEMOLYSIS 36 (0-50); Potassium 3.5 mmol/L (3.4-5.1); Sodium 138 mmol/L (137-145); Total Protein 5.4 g/dL (6.3-8.2)
[2021-03-04 06:14] LABS: Alanine Aminotransferase < 4 IU/L (<50)
[2021-03-04] MEDS: metroNIDAZOLE 500 MG/100 ML PIGGYBACK 100 MG IV ×3 (06:32→22:39)
--- NOTE | 2021-03-04 09:00 | DI.US.S_ITS ---
PROCEDURE: US ABDOMEN LIMITED INDICATIONS: RUQ PAIN TECHNIQUE: Real-time focused scanning was performed of the abdomen, with image documentation. COMPARISON: [facility], CT, CT CHEST ABD PEL W CON, 03/03/2021, 5:00. FINDINGS: The liver is normal in size and demonstrates no focal lesions. No findings of gallstones or sludge are seen. The gallbladder wall is not thickened, measuring 3 mm or less. No specific pericholecystic fluid is seen. The sonographic Rosario sign is negative. There is no biliary dilatation, the common bile duct measures 3 mm. No significant pancreatic abnormality is seen on these images. IMPRESSION: The gallbladder demonstrates a normal sonographic appearance. No biliary dilatation is seen. Dictated by: Juvenal Simons M.D. on 03/04/2021 at 8:42 Approved by: Juvenal Simons M.D. on 03/04/2021 at 8:43
--- NOTE | 2021-03-04 11:57 | CM.DANOTE ---
DCP: Case received, EMR reviewed and met with patient. Introduced self and role. Was able to obtain information regarding patient's baseline activity status prior to hospitalization. DCP assessment completed with information currently available. Patient is a 80 year old male who admitted yesterday morning to the care of the hospitalist team. PCP: Dr. Salguero. Payer: confimed: Medicare/[facility]. Patient came to the hospital via ambulance secondary to a fall at home, as well as some complaints of abdominal pain, and agitation. Patient does have history of Parkinsons. He has also been under the care of a neurologist and was recently diagnosed with dystonia. Patient holds current diagnosis of eneritis, blood cultures are pending, and he is currently on antibiotics. Patient did have a fall at home, and was noting some increased confusion at home. Met briefly with patient. He was awake, sitting up in bed, alert and oriented. Confirmed that he resides in [place] with his spouse, Brenda. Asked him if he uses a cane or any devices at home and he denied. He also confirmed that he is no longer driving. His spouse takes him to all appointments. Discussed patient during team rounds, and mentioned the possibility of home health, since medications may need to be assessed. P: DCP to continue to follow for needs. Will see how patient does with P.T. Home health may be a good option for patient. Loli Trejo RN/Kicking Machine Operator Discharge Planning/Care Management CM Discharge Assessment Start: 03/04/21 11:54 Freq: Status: Active Protocol: Document 03/04/21 11:54 (Rec: 03/04/21 11:57 [id number]) Discharge Planning Assessment Assigned Bobbin Disker Loli Trejo RN/Kicking Machine Operator Advance Directives? Yes Advance Directives on File No History Provided By Patient,Family Member,Medical Record Prior Living Arrangements House Household Members spouse Type of transporation used prior to Relies on Others admit Independent with ADL's Yes Is patient alert and oriented? Yes Needs Assistance With Home Chores / Shopping Caregiver for Another No Patient/Family Preference Home with Home Health Comment Will see how he does with P.T. Barriers to Discharge No Comment As long he clears P.T. Discharge Plan Home with Home Health Transportation Arrangement Spouse Referrals Initiated Other Additional Comment Have not yet initiated, will see how he does with P.T. Whiteboard Updated in Patient Room with Yes name and ext. # of Bobbin Disker Review Status In Process Next Review Type Continued Stay Review
[2021-03-04] MEDS: clonazePAM 0.5 MG TABLET 1.5 MG PO ×2 (12:53→20:27)
[2021-03-04] MEDS: ENOXAPARIN 40 MG/0.4 ML SYRINGE SUBCUT (12:53)
[2021-03-04] MEDS: CITALOPRAM 10 MG TABLET 20 MG PO (12:54)
[2021-03-04] MEDS: CHOLECALCIFEROL (VITAMIN D3) 1,000 UNIT TABLET 2000 UNIT PO (12:54)
[2021-03-04] MEDS: DOCUSATE 100 MG CAPSULE PO ×4 (12:54→20:26)
[2021-03-04] MEDS: CARBIDOPA-LEVODOPA ER 50/200 TABLET 1 EACH PO ×3 (12:56→20:26)
[2021-03-04] MEDS: FOLIC ACID 0.4 MG TABLET PO (15:26)
--- NOTE | 2021-03-04 15:57 | P.PN_ITS ---
Subjective Subjective Date Patient Seen: 03/04/21 Interval history: 80-year-old male admitted to the hospital with fever, abdominal pain, and confusion. Today the patient reports no abdominal pain, he denies any shortness of breath, and has had no evidence of confusion. The patient is anxious to discharge home. Patient a bowel movement his day but has had no diarrhea. Exam Vital Signs (past 8 hours): - 03/04/21 09:30 03/04/21 11:09 Temperature 98.8 F Pulse Rate 65 68 Respiratory Rate 16 16 Blood Pressure 144/70 H Pulse Oximetry 94 96 Oxygen Delivery Method Room Air Oxygen Flow Rate 0 Narrative Exam Narrative: Pleasant male lying in bed in no obvious distress Resp Other: Lungs decreased breath sounds but clear to auscultation Cardio Other: Cardiac exam: Regular rate rhythm normal S1-S2 GI Other: Abdomen soft nontender nondistended no hepato speech been a megaly no rebound tenderness Neuro Other: Resting tremor Extrem Other: No edema Objective Labs Result Diagrams: 03/04/21 05:00 03/04/21 05:00 Labs: Laboratory Results - last 24 hr 03/04/21 03/04/21 05:00 05:00 WBC 6.4 RBC 3.74 L Hgb 11.6 L Hct 33.9 L MCV 90.6 MCH 31.0 MCHC 34.2 RDW 13.5 Plt Count 108 L Neut % (Auto) 61.3 D Lymph % (Auto) 27.5 [place] % (Auto) 10.0 Eos % (Auto) 0.6 L Baso % (Auto) 0.6 Neut # (Auto) 3900 Lymph # (Auto) 1800 [place] # (Auto) 600 Eos # (Auto) 0 Baso # (Auto) 0 Sodium 138 Potassium 3.5 Chloride 107 Carbon Dioxide 31 BUN 8 L Creatinine 0.75 Estimated GFR > 60.0 BUN/Creatinine Ratio 10.7 Glucose 128 H Calcium 8.8 Total Bilirubin 0.6 AST 46 ALT < 4 Alkaline Phosphatase 36 L Total Protein 5.4 L Albumin 3.1 L Globulin 2.3 Albumin/Globulin Ratio 1.3 [facility] Medical History Anxiety Arthritis Bilateral thigh pain Chicken pox Chickenpox (Unknown) Chronic back pain (1965) Chronic fatigue (2014) Colon polyps (2009) Coronary artery disease Depression (2015) Erectile dysfunction Foot pain (~2017) Hiatal hernia Hiatal hernia Hypercholesterolemia Hypertension Mumps (Unknown) Mumps Panic attacks Parkinson's disease (2015) Proximal muscle weakness Surgical History Anesthesia History of colonoscopy with polypectomy (11/19/17) History of colonoscopy with polypectomy (2009) History of tonsillectomy and adenoidectomy S/P CABG (coronary artery bypass graft) (06/2003) Status post coronary artery bypass graft Status post tonsillectomy and adenoidectomy Family History Father CAD (coronary artery disease) CVA (cerebral vascular accident) Hypertension Diabetes mellitus Heart attack Brain cancer Mother Hypertension Dementia Grandmother Diabetes mellitus Grandfather No problems noted. Brother No problems noted. Sister No problems noted. Social History household members: spouse Smoking Status: Never smoker alcohol intake: former Assessment & Plan Assessment & Plan narrative: 80-year-old male with a history of Parkinson's disease, hyperlipidemia, coronary disease, hypertension, back pain who presents with confusion, fever and chills, with probable sepsis * Patient's predominant symptom is acute metabolic encephalopathy * This is likely related to some underlying issue * Patient presented with an elevated temperature, elevated lactate, and CT findings showing probable enteritis * Agree with antibiotics, will add Flagyl to levofloxacin * Given gallstones on exam and complaints of abdominal pain will obtain a lipase and abdominal ultrasound to rule out acute cholecystitis * Abdominal ultrasound negative for acute cholecystitis * Will initiate IV fluids, will Hep-Lock IV fluids * Will follow-up blood cultures , negative so far * Parkinson's disease * Will continue carbidopa levodopa * PT OT consultation given the patient's increasing difficulty with mobi lityAcute metabolic encephalopathy * Suspect this is multifactorial may in fact be related to Parkinson's, with early dementia * Continue donepezil * Continue mirtazapineGERD * Continue PPIHyperlipidemia * Continue statinDepression * Continue CelexaBPH * Continue tamsulosinWill start Lovenox for DVT prophylaxis Time Spent With Patient Critical Care time: I spent a total of [] minutes of critical care time on this patient's care today; this time is exclusive of procedural time. Quality VTE Deep Vein Thrombosis/Pulmonary Embolism Present on Admission: No
--- NOTE | 2021-03-04 17:51 | PC.NURSE ---
Pt mostly confused today, calls out and doesnt want to be alone, he has multi confusing questions for staff, coop and calm. up in chair for dinner, denies pain and remains afibrile. here and Dr. Liang in room talking about plan for DC and pt is asking to go home a few times. pt alarmed and call light withing reach.
[2021-03-04] MEDS: TAMSULOSIN 0.4 MG CAPSULE PO (20:25)
[2021-03-04] MEDS: SENNOSIDES 8.6 MG TABLET 17.2 MG PO (20:25)
[2021-03-04] MEDS: MIRTAZAPINE 15 MG TABLET 45 MG PO (20:25)
[2021-03-04] MEDS: DONEPEZIL 5 MG TABLET 20 MG PO (20:27)
[2021-03-04] MEDS: PRAVASTATIN 20 MG TABLET PO (20:27)
[2021-03-04] MEDS: FLUTICASONE 120 SPRAY/16 GM SPRAY.SUSP NASAL (20:28)
[2021-03-05 03:30] VITALS: BP 145/77; PULSE 88; RESP 18; TEMP 36.4; O2SAT 97
[2021-03-05] MEDS: DEXTROSE 5%-0.45% NS 1,000 ML 100 ML IV (03:55)
[2021-03-05 05:45] LABS: Add Manual Diff / Slide Review NO; Basophils Absolute Auto 0 /uL (0-100); Basophils Percent Auto 0.8 % (0-2); Eosinophils Absolute Auto 100 /uL (0-450); Eosinophils Percent Auto 1.4 % (2-4); Hematocrit 35.6 % (41-53); Lymphocytes Absolute Auto 1400 /uL (1100-4500); Lymphocytes Percent Auto 24.5 % (25-40); Mean Corpuscular HGB Conc 33.6 % (30-36); Mean Corpuscular Hemoglobin 30.7 PG (26-34); Mean Corpuscular Volume 91.4 fL (80-100); Monocytes Absolute Auto 600 /uL (0-900); Neutrophils Absolute Auto 3500 /uL (1500-7000); Neutrophils Percent Auto 63.3 % (50-75); Platelet Count 116 X10^3/uL (150-400); Red Cell Distribution Width 13.4 % (11.6-14.8); White Blood Cell Count 5.6 X10^3/uL (4.5-11.0)
[2021-03-05 05:58] LABS: Albumin 3.1 g/dL (3.5-5.0); Albumin Globulin Ratio 1.4 (1.0-2.8); Alkaline Phosphatase 39 U/L (38-126); Aspartate Aminotransferase 33 IU/L (17-59); BUN Creatinine Ratio 10.3 (6-22); Bilirubin Total 0.5 mg/dL (0.2-1.3); Blood Urea Nitrogen 7 mg/dL (9-20); Calcium 8.9 mg/dL (8.4-10.2); Carbon Dioxide 35 mmol/L (22-32); Chloride 108 mmol/L (98-107); Estimated Glomerular Filt Rate > 60.0 mL/min (>60); Globulin 2.2 g/dL (1.7-4.1); Glucose 126 mg/dL (80-110); HEMOLYSIS < 15 (0-50); Potassium 3.4 mmol/L (3.4-5.1); Sodium 140 mmol/L (137-145); Total Protein 5.3 g/dL (6.3-8.2)
[2021-03-05 05:59] LABS: Alanine Aminotransferase < 4 IU/L (<50)
[2021-03-05] MEDS: PANTOPRAZOLE DR 20 MG TABLET PO (06:08)
[2021-03-05] MEDS: metroNIDAZOLE 500 MG/100 ML PIGGYBACK 100 MG IV (06:09)
[2021-03-05] MEDS: ACETAMINOPHEN 325 MG TABLET 650 MG PO (06:09)
[2021-03-05 06:21] LABS: Procalcitonin 0.05 ng/mL (<0.5)
[2021-03-05 07:45] VITALS: BP 154/68; PULSE 73; RESP 17; TEMP 36.8; O2SAT 97
--- NOTE | 2021-03-05 08:14 | P.DS_ITS ---
History of Present Illness History of Present Illness Date Patient Seen: 03/05/21 Chief complaint: ABD pain x2 weeks, GLF Narrative: The patient is a 80-year-old male, hyperlipidemia, Parkinson's disease, coronary artery disease, chronic back pain, hypertension, who presents for a multitude of complaints. The patient's reports that he was well until yesterday. Apparently he was somewhat confused in the evening. He went to bed. She tried to arouse him for dinner and he remains sleepy. Later that night the patient was in bed ?screaming all night, he was agitated, calling for his to ?help me help me. This occurred until about 3:00 a.m. Patient was noted to have some shaking chills. He also had complaints of abdominal pain. The patient does see a neurologist, and was recently diagnosed with truncal dystonia. He has chronic shortness of breath which has been present for several months. He has lost about 30 lb over the past year unintentionally. Per his he had no fever at home, no cough, no vomiting, no dysuria, no painful urination. Patient was evaluated in the emergency department. He was febrile to 99.1, her white count was 8.3, hemoglobin 13.6, hematocrit 40.4. His electrolytes were unremarkable as were his liver function tests and procalcitonin. His initial lactate was elevated at 3.9 but repeat was 1.2. Urinalysis was unremarkable. Chest x-ray was negative. CT of the abdomen and pelvis revealed nondilated loops of small bowel, fluid seen in the proximal colon, question enteritis, gastric wall thickening prominently, no findings of perforation or abscess. There is a low- density lesion in the left pole of the kidney that may represent a hyperdense cyst, there was incidental note made of gallstones, liver hemangioma, diverticulosis without diverticulitis, and enlarged prostate, and L4-L5 degenerative changes. Patient was started on antibiotics in the emergency room. He was admitted to the hospital for further evaluation. Discharge Providers Provider Date of admission: 03/03/21 10:05 Discharge Date: 03/05/21 Primary care physician: Raoul Salguero MD Consults: 03/03/21 08:50 Consult to Speech Therapy Evaluate & Treat Comment: CHOKING ON WATER Physician Instructions: Evaluate and treat 03/03/21 14:11 Consult to Dietitian, Adult Routine Comment: Reason For Exam: weight loss Consult to Discharge Planning Routine Comment: Consult to Occupational Therapy Evaluate & Treat Comment: Physician Instructions: Evaluate and treat 03/04/21 16:04 Consult to Home Health Routine Comment: Reason For Exam: Home Health Nursing, P.T, O.T. Discharge provider: Yohana Liang MD Summary Hospital Course Discharge Diagnosis: 1. Acute enteritis 2. Acute metabolic encephalopathy, present on admission, improved 3. Parkinson's disease 4. Probable dementia 5. GERD 6. Hyperlipidemia 7. Depression 8. BPH Hospital Course: The patient was admitted to the hospital and placed on IV antibiotics for acute enteritis. Attempts were made for C diff culture, however the patient did not have diarrhea. He defervesced nicely on the antibiotics. He had no significant confusion at night. His abdominal pain improved. An abdominal ultrasound was obtained to rule out acute cholecystitis. There was no evidence of acute cholecystitis on abdominal ultrasound. The patient's diet was advanced. He continued to have shortness of breath which is chronic. Overall he continued to improve and was deemed appropriate for discharge home. As the patient does have increasing mobility issues related to his Parkinson's home PT eval will be arranged. His was referred back to his neurologist regarding delirium, possible dementia associated with Parkinson's. Status at Discharge Cognitive/behavioral status at discharge: oriented Functional status at discharge: uses cane/walker Overall status at discharge: patient is progressing back to baseline Exam Vital Signs (past 8 hours): - 03/05/21 03:30 Temperature 97.6 F Pulse Rate 88 Respiratory Rate 18 Blood Pressure 145/77 H Pulse Oximetry 97 Oxygen Delivery Method Room Air Oxygen Flow Rate 0 Narrative Exam Narrative: Pleasant gentleman lying in bed in no obvious distress Resp Other: Lungs clear to auscultation Cardio Other: Cardiac exam: Regular rate and rhythm normal S1-S2 with a 2/6 systolic ejection murmur GI Other: Abdomen soft and nontender no hepatosplenomegaly Neuro Other: Patient with a resting tremor Extrem Other: Extremity no edema Objective Labs Result Diagrams: 03/05/21 05:30 03/05/21 05:30 Labs: Laboratory Results - last 24 hr 03/05/21 03/05/21 03/05/21 05:30 05:30 05:30 WBC 5.6 RBC 3.90 L Hgb 12.0 L Hct 35.6 L MCV 91.4 MCH 30.7 MCHC 33.6 RDW 13.4 Plt Count 116 L Neut % (Auto) 63.3 Lymph % (Auto) 24.5 L [place] % (Auto) 10.0 Eos % (Auto) 1.4 L Baso % (Auto) 0.8 Neut # (Auto) 3500 Lymph # (Auto) 1400 [place] # (Auto) 600 Eos # (Auto) 100 Baso # (Auto) 0 Sodium 140 Potassium 3.4 Chloride 108 H Carbon Dioxide 35 H BUN 7 L Creatinine 0.68 Estimated GFR > 60.0 BUN/Creatinine Ratio 10.3 Glucose 126 H Calcium 8.9 Total Bilirubin 0.5 AST 33 ALT < 4 Alkaline Phosphatase 39 Total Protein 5.3 L Albumin 3.1 L Globulin 2.2 Albumin/Globulin Ratio 1.4 Procalcitonin 0.05 PFSH Medical History Anxiety Arthritis Bilateral thigh pain Chicken pox Chickenpox (Unknown) Chronic back pain (1964) Chronic fatigue (2013) Colon polyps (2009) Coronary artery disease Depression (2014) Erectile dysfunction Foot pain (~2017) Hiatal hernia Hiatal hernia Hypercholesterolemia Hypertension Mumps (Unknown) Mumps Panic attacks Parkinson's disease (2014) Proximal muscle weakness Surgical History Anesthesia History of colonoscopy with polypectomy (11/19/17) History of colonoscopy with polypectomy (2009) History of tonsillectomy and adenoidectomy S/P CABG (coronary artery bypass graft) (06/2003) Status post coronary artery bypass graft Status post tonsillectomy and adenoidectomy Family History Father CAD (coronary artery disease) CVA (cerebral vascular accident) Hypertension Diabetes mellitus Heart attack Brain cancer Mother Hypertension Dementia Grandmother Diabetes mellitus Grandfather No problems noted. Brother No problems noted. Sister No problems noted. Social History household members: spouse Smoking Status: Never smoker alcohol intake: former Discharge Assessment & Plan Assessment and Plan Assessment: Acute enteritis 2. Acute metabolic encephalopathy, present on admission, improved 3. Parkinson's disease 4. Probable dementia 5. GERD 6. Hyperlipidemia 7. Depression 8. BPH Plan of Treatment: Discharge home Outpatient neurology follow-up Discharge Plan Discharge Plan Patient Disposition: Home Discharge orders & Medications Prescriptions: New docusate sodium 100 mg Capsule 100 mg PO BID Qty: 30 0RF amoxicillin-pot clavulanate [Augmentin] 875-125 mg tablet 1 tab PO Q12H Qty: 14 0RF Continued carbidopa-levodopa 50-200 mg tablet extended release 1 tab PO BEDTIME 90 Days 0RF donepezil 10 mg tablet 20 mg PO BEDTIME 90 Days 0RF melatonin 10 mg capsule 10 mg PO BEDTIME PRN (Reason: Insomnia) 0RF docusate sodium [Dulcolax Stool Softener (dss)] 100 mg capsule 100 mg PO BID 0RF folic acid 400 mcg tablet 0.4 mg PO DAILY 0RF saw palmetto 450 mg capsule 450 mg PO DAILY 0RF Rx Instructions: give with food (meal/snack) cholecalciferol (vitamin D3) 50 mcg (2,000 unit) capsule 50 mcg PO DAILY 0RF mirtazapine 45 mg tablet 45 mg PO BEDTIME Qty: 90 0RF Rx Instructions: Take 1 tab by mouth at bedtime. clonazepam 1 mg tablet 1.5 mg PO BID Qty: 270 0RF Rx Instructions: take one and a half tablets twice daily citalopram [Celexa] 20 mg tablet 20 mg PO QDAY Qty: 90 0RF pravastatin 20 mg tablet 20 mg PO BEDTIME Qty: 60 0RF fluticasone propionate 50 mcg/actuation spray,suspension 1 spray intranasal BID 0RF Rx Instructions: administer into each nostril tamsulosin 0.4 mg capsule 0.4 mg PO BEDTIME 0RF omeprazole 20 mg capsule,delayed release(DR/EC) 20 mg PO QAM 0RF No Action carbidopa-levodopa 25-100 mg tablet 1 tab PO QID 0RF Follow up/Referrals: Raoul Salguero MD [Primary Care Provider] - Discharge Health Status Multidrug resistant organism: No MDRO Diet/Activity/Treatments Diet: Diet as Tolerated and Low-sodium Diet comment: [place] thick, mechanical soft diet Skin/Wound/Dressing Care Report to your healthcare provider any signs of infection, such as:: chills, fever and increased pain Visit Report/Discharge Packet Instructions: How to Prevent Falls, DI for Sepsis -- Adult Discharge Data Primary Care Provider: Raoul Salguero Attending Provider: oYhana Liang VTE Deep Vein Thrombosis/Pulmonary Embolism Present on Admission: No
[2021-03-05 08:17] VITALS: PULSE 73; RESP 17; O2SAT 97
[2021-03-05] MEDS: clonazePAM 0.5 MG TABLET 1.5 MG PO (08:36)
[2021-03-05] MEDS: CARBIDOPA-LEVODOPA ER 50/200 TABLET 1 EACH PO ×2 (08:38→13:24)
[2021-03-05] MEDS: CHOLECALCIFEROL (VITAMIN D3) 1,000 UNIT TABLET 2000 UNIT PO (08:38)
[2021-03-05] MEDS: DOCUSATE 100 MG CAPSULE PO (08:38)
[2021-03-05] MEDS: CITALOPRAM 10 MG TABLET 20 MG PO (08:38)
[2021-03-05] MEDS: ENOXAPARIN 40 MG/0.4 ML SYRINGE SUBCUT (08:39)
[2021-03-05] MEDS: FOLIC ACID 0.4 MG TABLET PO (08:39)
[2021-03-05] MEDS: FLUTICASONE 120 SPRAY/16 GM SPRAY.SUSP NASAL (08:54)
--- NOTE | 2021-03-05 09:42 | OT.IP.EVAL ---
Past Medical History (Last Reviewed 03/03/21 @ 14:25 by Yohana Liang MD) Anxiety Arthritis Bilateral thigh pain Chicken pox Chickenpox (Unknown) Chronic back pain (1965) Chronic fatigue (2014) Colon polyps (2010) Coronary artery disease Depression (2015) Erectile dysfunction Foot pain (~2017) Hiatal hernia Hiatal hernia History of colonoscopy with polypectomy (11/19/17) History of colonoscopy with polypectomy (2009) History of tonsillectomy and adenoidectomy Hypercholesterolemia Hypertension Mumps (Unknown) Mumps Panic attacks Parkinson's disease (2015) Proximal muscle weakness S/P CABG (coronary artery bypass graft) (06/2003) Surgical History (Last Reviewed 03/03/21 @ 14:25 by Yohana Liang MD) Anesthesia History of colonoscopy with polypectomy (11/19/17) History of colonoscopy with polypectomy (2009) History of tonsillectomy and adenoidectomy S/P CABG (coronary artery bypass graft) (06/2003) Status post coronary artery bypass graft Status post tonsillectomy and adenoidectomy Occupational Therapy Inpatient Evaluation/Re-Eval M1 PT/OT-IP Prior Functional Status Start: 03/05/21 08:53 Freq: NEEDED Status: Active Protocol: Document 03/05/21 10:09 AW (Rec: 03/05/21 10:19 AW [id number]) Medical Review Prior Functional Status Medical History Reviewed Yes Communication Pt is an effective verbal communicator. He has mild hypophonia typical of Parkinson's. Mobility and Gait Pt has a FWW but does not use it regularly. He had several syncopal episodes 1.5 years ago resulting in falls but states frequency has dwindled to nearly nothing. Pt was seen by outpatient PT until a few weeks ago. Activities of Daily Living and IADL's Pt requires assist for dressing, SBA for showers. Pt does not drive. Spouse drives to all appointments. Prior Functional Level (Other details) Pt has caregiver support but only PRN, no regular hours. His spouse, Brenda, works outside the home and is often gone during midday hours. Social History Household Members spouse Living Arrangements House Number of Floors (Floors) Two Floors Number of Stairs To Enter/Railing? 1 BA through garage without rail. There is a spiral staircase to lower level but pt does not go downstairs. Home Environment Standard Height Toilet,Walk in Shower Home Equipment Front Wheel Walker,Hand Held Shower,Grab Bars In Shower Additional Social History Comment Pt lives with his spouse, Brenda. Caregiver is available prn but has no regularly scheduled hours. M2 OT-IP Current Condition Start: 03/05/21 13:39 Freq: Status: Active Protocol: Document 03/05/21 08:48 [facility] (Rec: 03/05/21 13:51 [facility] [id number]) Occupational Therapy Current Condition Current Condition Evaluation Date 03/05/21 Treatment Diagnosis Acute encephalopathy, fall Diagnosis Onset Date 03/03/21 M3 OT- IP Subjective and Pain Start: 03/05/21 13:39 Freq: Status: Active Protocol: Document 03/05/21 08:48 [facility] (Rec: 03/05/21 13:51 [facility] [id number]) OT- Subjective Occupational Therapy Visit Type Type Initial Evaluation Visit Start Time 08:48 Visit Stop Time 09:42 Total Visit Minutes 54 Occupational Therapy Visit Comments Patient Comments Pt's in the room and pt wanting to use the bathroom and get dressed. Patient/Caregiver Goals TO go home. OT Pain Assessment Pain When Pain Assessed At Rest Pain Present Pain Present Denied Pain M4 OT- IP ADL's Start: 03/05/21 13:39 Freq: Status: Active Protocol: Document 03/05/21 08:48 [facility] (Rec: 03/05/21 13:51 [facility] [id number]) OT [id number] Comments OT Self-Feeding Comments Not at meal time. OT ADL-Grooming Comments OT Grooming Comments Not performed. OT ADL-Dressing General Eval Lower Body Dressing Ability Maximum Assistance Areas Needing Assistance Pants/Shorts,Socks,Shoes Comments OT Dressing Comments Assist to get his socks,shoes, and pants on. Pt's states able to assist pt at home as needed. OT ADL-Toileting General Evaluation Toileting Ability Moderate Assistance Areas Needing Assistance Manage Clothing Comments OT Toileting Comments vc for completeness and assist for clothing management needs . OT ADL-Bathing Comments OT Bathing Comments Pt's states they have a shower chair at home that he can use and will assist him at needed. M5 OT- IP IADL's Start: 03/05/21 13:39 Freq: Status: Active Protocol: Document 03/05/21 08:48 [facility] (Rec: 03/05/21 13:51 [facility] [id number]) OT-Instrumental Activities of Daily Living Home Safety Awareness Awareness of Need for Assistance at Home Decreased Awareness Ability to Problem Solve Emergency Able to Problem Solve Situations Medication Management Medication Management Caregiver Administers Money Management Money Management Caregiver Provides Assistance Meal Preparation Meal Preparation Caregiver Provides Assist Cut Press Operator Cut Press Operator Caregiver Provides Assist M6 OT- IP Functional Cognition Start: 03/05/21 13:39 Freq: Status: Active Protocol: Document 03/05/21 08:48 [facility] (Rec: 03/05/21 13:51 [facility] [id number]) Cognitive Factors Limiting Selfcare Function Cognitive Ability Level of Alertness Alert Patient Orientation Name,Place,Situation Attention Span Ability Capable of Focused Attention, Capable of Sustained Attention Ability to Follow Commands Able to Follow One Step Commands with Increased Time, Able to Follow One Step Commands with Repetition Memory Description Short Term Impaired Safety Awareness Underestimates Need for Assistance Cognitive Comments Cognitive Assessment Comments Pt needing encouragement to do for himself as just wanting his or therapist to assist for his needs. Pt needs safety cues for FWW use and for his balance as pt tends to lean on his heels when standing up initially. M7 OT- IP Mobility and Balance Start: 03/05/21 13:39 Freq: Status: Active Protocol: Document 03/05/21 08:48 [facility] (Rec: 03/05/21 13:51 [facility] [id number]) OT- Bed Mobility Assessment Supine to Sit Supine to Sit Assist Contact Guard Assistance OT-Transfer Assessment Sit to and From Stand Sit to and from Stand Contact Guard Assistance Transfers Transfer Ability Contact Guard Assistance Technique Transfer Destination Bed,Chair,Toilet Transfer Technique Stand Step Pivot Devices Transfer Assistive Devices Gait Belt,Front Wheeled Walker Comments Mobility Comments Able to have pt's assist pt for mobility needs with good safety. OT- Gait Assessment Comments Gait Ability Comments CGA with FWW at this time. OT- Balance Assessment Sitting Balance and Reactions Static Sitting Balance Ability Good Dynamic Sitting Balance Ability Fair Standing Balance and Reactions Static Standing Balance Ability Fair Dynamic Standing Balance Ability Poor M9 OT- IP Assessment and Plan Start: 03/05/21 13:39 Freq: Status: Active Protocol: Document 03/05/21 08:48 [facility] (Rec: 03/05/21 13:51 [facility] [id number]) OT Summary Assessment and Plan Potential Rehabilitation Potential Good Analytic Complexity at Evaluation Moderate Summary OT Impairments Balance,Functional Cognition, Functional Mobility,Dressing, Toileting,Bathing,Toilet Transfers,Shower Transfers, Activity Tolerance Progress Towards Goals Progressing Toward Goals Assessment Summary Pt's able to participate in caregiver training and able to appropriately assist pt for all ADl and mobility needs and aware that the pt will need 24/7 assist initially. Pt to go home with his and have home health. Goals Grooming Goal Independent Dressing Goal Independent Toileting Goal Independent Bathing Goal Standby Assistance Toilet Transfer Goal Independent Shower Transfer Goal Independent Days to Meet Goals 7 Frequency of Treatment Frequency Of Treatment Once a Day Treatment Plan OT Treatment Plan ADL Training,Functional Cognition Training,Functional Mobility,Patient/Family Education,Discharge Planning Other Treatment Recommendations and Next shower if still here Treatment Focus Discharge Recommendations OT Discharge Recommendations Home with 24/7 Assist Available,Home Health Transportation Needs at Discharge Private Vehicle
--- NOTE | 2021-03-05 10:09 | PT.IIE ---
Surgical History (Last Reviewed 03/03/21 @ 14:25 by Yohana Liang MD) Anesthesia Status post coronary artery bypass graft Status post tonsillectomy and adenoidectomy Medical History (Last Reviewed 03/03/21 @ 14:25 by Yohana Liang MD) Anxiety Arthritis Bilateral thigh pain Chicken pox Chickenpox (Unknown) Chronic back pain (1965) Chronic fatigue (2014) Colon polyps (2010) Coronary artery disease Depression (2015) Erectile dysfunction Foot pain (~2017) Hiatal hernia Hiatal hernia Hypercholesterolemia Hypertension Mumps (Unknown) Mumps Panic attacks Parkinson's disease (2015) Proximal muscle weakness Physical Therapy Inpatient Evaluation/Re-Eval M1 PT/OT-IP Prior Functional Status Start: 03/05/21 08:53 Freq: NEEDED Status: Active Protocol: Document 03/05/21 10:09 AW (Rec: 03/05/21 10:19 AW [id number]) Medical Review Prior Functional Status Medical History Reviewed Yes Communication Pt is an effective verbal communicator. He has mild hypophonia typical of Parkinson's. Mobility and Gait Pt has a FWW but does not use it regularly. He had several syncopal episodes 1.5 years ago resulting in falls but states frequency has dwindled to nearly nothing. Pt was seen by outpatient PT until a few weeks ago. Activities of Daily Living and IADL's Pt requires assist for dressing, SBA for showers. Pt does not drive. Spouse drives to all appointments. Prior Functional Level (Other details) Pt has caregiver support but only PRN, no regular hours. His spouse, Brenda, works outside the home and is often gone during midday hours. Social History Household Members spouse Living Arrangements House Number of Floors (Floors) Two Floors Number of Stairs To Enter/Railing? 1 BA through garage without rail. There is a spiral staircase to lower level but pt does not go downstairs. Home Environment Standard Height Toilet,Walk in Shower Home Equipment Front Wheel Walker,Hand Held Shower,Grab Bars In Shower Additional Social History Comment Pt lives with his spouse, Brenda. Caregiver is available prn but has no regularly scheduled hours. M2 PT-IP Current Condition Start: 03/05/21 08:53 Freq: NEEDED Status: Active Protocol: Document 03/05/21 10:09 AW (Rec: 03/05/21 10:26 AW [id number]) Physical Therapy Current Condition Current Condition Evaluation Date 03/05/21 Treatment Diagnosis acute encephalitis, acute enteritis, fall, agitation, PD Onset Date 03/03/21 M3 PT-IP Subjective Start: 03/05/21 08:53 Freq: NEEDED Status: Active Protocol: Document 03/05/21 10:09 AW (Rec: 03/05/21 10:26 AW [id number]) Subjective Physical Therapy Visit Type Type Initial Evaluation Visit Start Time 09:50 Visit Stop Time 10:09 Total Visit Minutes 19 Notes Pt's spouse was present throughout evaluation and contributed to history. Physical Therapy Visit Comments Patient Comments Pt is hoping to go home today. Therapy Pain Assessment Pain When Pain Assessed During Mobility Pain Present Pain Present Denied Pain M4 PT-IP Mobility and Gait Start: 03/05/21 08:53 Freq: NEEDED Status: Active Protocol: Document 03/05/21 10:09 AW (Rec: 03/05/21 10:26 AW [id number]) PT-Transfer Assessment Sit to and From Stand Sit to and from Stand Contact Guard Assistance, Minimal Assistance,Use of Upper Extremities Equipment Transfer Assistive Device Gait Belt,Front Wheeled Walker Orthotic/Prosthetic Devices or Brace: No Transfers Transfer Destination Chair Transfer Technique pt amb with FWW Transfer Ability Level of Assist Contact Guard Assistance Comments Mobility Comments Pt was sitting up in the chair as PT arrived. He needed cues and min assist to stand. He used FWW to ambulated around the room SBA/CGA during turns. He refused bed mobility assessment and returned to the chair CGA. Pt was left with call light and tray table in reach. His remained in the room. Gait Assessment Gait Gait Assistance Required: Standby Assistance,Contact Guard Assist Distance (Feet) 75 Assistive Devices Assistive Device Gait Belt,Front Wheeled Walker Gait Deviations General Gait Pattern Decreased Stride Length, Decreased Feet Clearance, Festinating,Flexed Trunk, Narrow Based Gait Factors Limiting Gait Function Factors Limiting Gait Function Decreased Sensation, Incoordination,Limited Range of Motion,Poor Balance,Poor Safety Awareness Comments Gait Comments Pt ambulated with shuffling pattern but was able to open up his stride length in response to cues. Pt states FWW fits everywhere in his house and he is open to using it full-time for now. Stair Climbing Assessment Comments Stair Climbing Comments Not assessed. PT-Balance Assessment Sitting Balance and Reactions Static Sitting Balance Ability Normal Dynamic Sitting Balance Ability Good Standing Balance and Reactions Static Standing Balance Ability Fair Dynamic Standing Balance Ability Fair Device Used FWW M5 PT-IP Objective Assessments Start: 03/05/21 08:53 Freq: NEEDED Status: Active Protocol: Document 03/05/21 10:09 AW (Rec: 03/05/21 10:31 AW [id number]) Orientation Orientation/Cognition Level of Alertness Confusional State Orientation Name,Month,Place,Situation Language Function Ability No Deficits Noted Safety Awareness Decreased Safety Awareness Gross Range of Motion Lower Extremity ROM Assessment Left Impaired Impairments Left knee extension lacking ~5 degrees Strength Lower Extremity Strength Assessment Within Functional Limits Comments Strength Comments BLE grossly 4+/5 Coordination Assessment Assessment Finger to Nose Test Minimal Impairment Pronation/Supination Test Minimal Impairment Muscle Tone Muscle Tone WNL No Muscle Tone Location Bilateral Type of Tone Rigidity Manifistation of Tone Resting Tremors Comments Muscle Tone Comments Truncal rigidity apparent in sitting posture and gait. Possible dystonia with neck held in right rotation. M6 PT-IP Treatment Start: 03/05/21 08:53 Freq: NEEDED Status: Active Protocol: Document 03/05/21 10:09 AW (Rec: 03/05/21 10:31 AW [id number]) Physical Therapy Treatment Education Education Provided Safety Other Treatments Other Treatment Performed Spent time with pt educating on sit to stand technique with emphasis on amplitude adjustment. Pt completed sit to stand x 8 with heavy cues for weight shift. Discussed recommendation for FWW and HH at this time. Pt and his spouse agreeable. M7 PT-IP Assessment and Plan Start: 03/05/21 08:53 Freq: NEEDED Status: Active Protocol: Document 03/05/21 10:09 AW (Rec: 03/05/21 10:44 AW [id number]) PT Summary Assessment and Plan Potential Rehabilitation Potential Good Status of Condition at Evaluation Evolving Summary Impairments ROM,Balance,Sensation,Tone, Cognition,Transfers,Gait Assessment Summary Binu is a 80 yo man admitted wt acute metabolic encephalopathy and acute enteritis. He has history of Parkinson's disease, CAD, and chronic low back pain. He is independent to modified independent for mobility with FWW at baseline. On assessment , pt presents with some confusion. He exhibits bradykinesia and hypokinesia typical of Parkinson's disease but is safe with FWW and SBA/ CGA. Pt would benefit from increased caregiver support at home and home health services to improve functional mobility. Goals Bed Mobility Goal Independent Transfer Goal Independent,Front Wheeled Walker Gait Goal Independent,Front Wheel Walker Gait Distance 200 Other Goals - up/down 1 step CGA Frequency of Treatment Frequency Of Treatment Once a Day Treatment Plan Physical Therapy Treatment Plan Bed Mobility Training,Transfer Training,Gait Training, Therapeutic Exercise,Balance Retraining,Discharge Planning, Neuromuscular Re-ed Other Recommendations and Next Treatment amplitude-based gait training Focus with FWW - practice turns, transitions, changing surface type, threshholds Precautions Other Precautions fall risk Recommendations To Nursing Amount of Assist Needed 1 Person Assist Discharge Recommendations PT Discharge Recommendations Home with Assistance,Home with 24/7 Assist Available,Home Health Transportation Needs at Discharge Private Vehicle
--- NOTE | 2021-03-05 11:44 | CM.DPC ---
DCP Discharge Home with HH Per MD, pt is medically stable to d/c home today with HH and signed F2F yesterday and just awaiting pt to void independently. SW met bedside with pt and explained role and he confirms he is drinking lots of water attempting to void and is agreeable with HH and HH Choice list provided and no preference. SW made Sig referral based on Vendor Calendar and went to provide brochure to pt and spouse was bedside and states their PCP Dr. Salguero had made an [facility] referral 2 weeks ago but they had not heard from [facility] yet. SW called [facility] and confirmed they have referral from Dr. Salguero and have pt on the schedule in 2 days on Fri03/07/21 and request updated clinicals and orders. Due to spouse preference of [facility], SW faxed referral along with F2F, orders, and d/c summary to [facility] and confirmed they have ST available. NAPOLEON called [facility] Concha back and provided update and she will shred new referral and acknowledges understanding the confusion. Plan: Patient to d/c home via spouse POV today and [facility] scheduled for 03/07/21 to start pt to service. PRATEEK Maldonado
--- NOTE | 2021-03-05 14:04 | ST.IPIE ---
Visit Care Team Role Provider Type Raoul Salguero MD Primary Care Provider Physician Specialty: Internal Medicine Address: [address] [place] [address], [address], [place], [address] Email: [email or web address] Carlos A Frausto DO Emergency Provider Physician Referring Provider Specialty: Emergency Medicine Address: [address] [place] [address], [id number] Email: [email or web address] Yohana Liang MD Admit Provider Physician Attending Provider Specialty: Internal Medicine Address: [address] [place] [address], [id number] Email: [email or web address] Medical History (Last Reviewed 03/03/21 @ 14:25 by Yohana Liang MD) Anxiety (Medical) Arthritis (Medical) Bilateral thigh pain (Medical) Chicken pox (Medical) Chickenpox (Medical Unknown) Chronic back pain (Medical 1964) Chronic fatigue (Medical 2013) Colon polyps (Medical 2009) Coronary artery disease (Medical) Depression (Medical 2015) Erectile dysfunction (Medical) Foot pain (Medical ~2016) Hiatal hernia (Medical) Hiatal hernia (Medical) History of colonoscopy with polypectomy (Medical 11/19/17) Cecal polyp, grade 2 internal hemorrhoids; 5-year recall - Dr. Cesar Otto History of colonoscopy with polypectomy (Medical 2009) Dr. Marie History of tonsillectomy and adenoidectomy (Medical) Hypercholesterolemia (Medical) Hypertension (Medical) Mumps (Medical Unknown) Mumps (Medical) Panic attacks (Medical) Parkinson's disease (Medical 2014) Proximal muscle weakness (Medical) S/P CABG (coronary artery bypass graft) (Medical 06/2003) 3-vessel ST IP Initial Evaluation Report SILICA DRY [employer]ESS HELPER Clinical Swallow Evaluation Start: 03/05/21 13:39 Freq: Status: Active Protocol: Document 03/05/21 13:39 TASIA (Rec: 03/05/21 14:03 TASIA [id number]) Clinical Swallow Evaluation Session Time Visit Start Time 09:10 Visit Stop Time 09:30 Total Visit Minutes [address] Yohana Liang Reason for Referral Confusion, Dysphagia Setting Assessment Location Acute Care Visit Type Note Type Initial evaluation Next Note Type Next Note Type Treatment Note Patient Information Identification Type Name,ID Card History The patient is a 80-year-old male, hyperlipidemia, Parkinson's disease, coronary artery disease, chronic back pain, hypertension, who presented with many complaints , primarily confusion. He was admitted to hospital with acute metabolic encephalopathy . Subjective Observations The pt was sitting up in the chair with at his side upon SILICA DRY PRESS HELPER's arrival. Both pt and reported the pt has difficulty swallowing pills and sometimes liquids. Pt stated pills get stuck in his upper throat and liquids occ cause coughing. stated she cuts foods into small pieces and avoids serving foods that are difficult to chew, such as steak. Pt reported having a poor appetite, though stated he eats well when he does eat. Reported by Patient Other Symptoms Coughing,Difficulty swallowing liquids,Difficulty swallowing pills,Food gets stuck,Weight loss Current Diet Dysphagia advanced,Thin liquids Baseline Feeding Method Dependent for feeding Patient Questionnaire No Objective Assessment Mental Status Alert,Responsive,Cooperative Oral Integrity WFL Dentition Upper dentures/partials, Adequate denture or partial fitting Lip Function Mild impairment Observation of Lips at Rest Symmetrical Pucker Reduced range of motion, Reduced strength Lip Retraction Reduced range of motion Alternating Pucker/Lip Retraction Reduced range of motion Tongue Function Mild impairment Observations of Tongue at Rest Within normal limits Tongue Protrusion Involuntary movement(s) Tongue Lateralization Reduced strength Jaw Function Within normal limits Jaw Opening Within normal limits Jaw Closing Within normal limits Jaw Lateralization Reduced range of motion Hard/Soft Palate Function Within normal limits Observations of Hard/Soft Palate Within normal limits Nasality Within normal limits Phonation Within normal limits Respiratory Sufficiency Within normal limits Food and Liquid Trials Position During Assessment Upright (90 degrees) Liquids Trialed Thin,[place] Solids Trialed Puree,Mechanical Soft Administration Type Cup single sip,Straw,Dependent feeding Oral Impairment Within functional limits Pharyngeal Impairment Mildly impaired Pharyngeal Phase Comments Frequent immediate and delayed throat clearing was noted with thin liquids. Delayed throat clearing and then mild cough x1 was observed following NTL trials. No overt s/sx of aspiration noted with solids. The pt was unable to hold cup and utensils independently, making him dependent on feeding from others. He has not been seen by Speech Therapy in past. Education was provided to pt/spouse RE ST services that may improve symptoms of PD, including voice, swallow, speech intelligibility and expressive /receptive/cognitive communication skills. The pt reported that he has difficulty projecting his voice and speaking clearly; his agreed. Recommended dysphagia mechanical diet to ease mastication and decrease choking risk, NTLs to protect airway and reduce risk of aspiration, and HH or outpatient Speech Therapy for more thorough evaluation and education of SIL[employer] PRESS HELPER services that may benefit the pt and slow disease progression in terms of communication and swallow safety. Pt/spouse were in agreement with this. Informed the couple where to buy thickener, how to use, and options for naturally nectar- thick liquids. Given the presence of PD and onset of dysphagia, MBSS may be warranted either during hospital stay or as an outpatient appt after hospital discharge to guide POC. Findings Swallowing Function Oropharyngeal phase dysphagia Severity of Swallow Impairment Mildly impaired Contributing Factors to Swallow Reduced oral strength/ Impairment coordination/sensation, Mastication inefficiency, Impaired airway protection Prognosis Good Based on Cognitive status,Family support,Duration of symptoms/ severity Impact on Safety and Functioning Risk for aspiration Recommendations Swallowing Treatment Yes Frequency Recommend HH or outpatient Speech Therapy following hospital dc Recommended Solids Dysphagia Mechanical Recommended Liquids [place] Safety Precautions/Swallowing Reduce distractions,Remain Recommendations upright (90 degrees) during all oral intake,Upright position at least 30 minutes after meals,Small bites and sips when eating,Slow rate; swallow between bites,1 to 1 feeding assistance,Strict oral care after intake Medication Recommendations Whole in Carrier Discharge Recommendations Home,Home with Home Health, Outpatient therapy Education Patient/Caregiver Education Described results of evaluation,Patient expressed understanding of evaluation, Patient expressed agreement with goals & treatment plans, Family/caregivers expressed understanding of evaluation, Family/caregivers expressed agreement with goals & treatment plans,Patient expressed understanding of safety precautions,Patient expressed understanding of feeding recommendations,Family /caregivers expressed understanding of safety precautions,Family/caregivers expressed understanding of feeding recommendations Goals Short-term Goals Pt will follow safe swallow recommendations. Long-term Goals Pt will tolerate least restrictive diet to meet his nutrition and hydration needs.
--- NOTE | 2021-03-05 14:35 | PC.NURSE ---
Pt A&OX2, forgetful. This a.m. frequently calling to get out of bed but asking for two people to assist. He is SBA with FWW able to have formed BM today. MD at bedside clearing patient for discharge home after therapy, and pending voiding after medina removal. Aspiration precautions and pills given in applesauce. Pt with some difficulty getting pills down. OT at bedside assisting to help patient dressed today. CEMENT HANDLER at bedside evaluating patient and modifies diet to mechanical soft, with thickened liquid. Spouse at bedside verbalizes understanding of new precautions and diet recommendations. Pt denies any pain. He attempts to drink efficient liquid to void early this afternoon, and voids successfully. His verbalizes understanding of discharge instructions, medications, new orders and follow up recommendations. He is escorted this afternoon via w/ch to private vehicle with and all belongings.
== END 2021-03-05 13:45 | disposition home or self-care (01) ==
LOC: ED 06:15 → AC 03-04 11:25
PROVIDERS: Admitting Provider Internal Medicine; Emergency Provider Emergency Medicine; PCP Student in an Organized Health Care Education/Training Program; Referring Provider Emergency Medicine; Visit Provider Internal Medicine
DX: K52.89 Other specified noninfective gastroenteritis and colitis (principal); G93.41 Metabolic encephalopathy; R06.02 Shortness of breath; W18.30XA Fall on same level, unspecified, initial encounter; Y92.009 Unspecified place in unspecified non-institutional (private) residence as the place of occurrence of the external cause; G20 Parkinson's disease; I25.10 Atherosclerotic heart disease of native coronary artery without angina pectoris; E78.5 Hyperlipidemia, unspecified; I10 Essential (primary) hypertension; G24.8 Other dystonia; K21.9 Gastro-esophageal reflux disease without esophagitis; F32.9 Major depressive disorder, single episode, unspecified; N40.0 Benign prostatic hyperplasia without lower urinary tract symptoms; Z20.822 Contact with and (suspected) exposure to COVID-19
CPT/HCPCS: 36415; 71045; 71260; 74177; 76705; 80053; 81001; 82550; 82553; 83605; 83690; 84145; 84484; 85025; 87040; 87635; 92610; 93005; 93010; 94762; 97110; 97161; 97166; 97530; 99284; C9803; G0378; J1650; J1956; Q9967

== ENCOUNTER 2021-03-06 13:19 | Emergency (ER) | payer MEDICARE, OTHER, SELFPAY ==
[2021-03-03 13:56] VITALS: BMI 21.6
[2021-03-06 13:36] VITALS: PULSE 83; RESP 18; TEMP 37.2; O2SAT 96
[2021-03-06] MEDS: LIDOCAINE 2% (GLYDO) 6 ML GEL TOP (14:11)
[2021-03-06 14:29] LABS: Bacteria Urine None Seen; Culture Indicated Urine Cult Not Indicated; RBC Urine 5-10/HPF (0-5/HPF); Squamous Epithelial Cell Urine 0-1 /HPF (0-5/HPF); WBC Urine 0-1/HPF (0-5/HPF)
--- NOTE | 2021-03-06 14:41 | PC.NURSE ---
Patient had catheter removed yesterday around 10am, was able to urinate. Today increase pain with swelling of head of penies unable to retract foreskin due to swelling. Patient able to urinate but very painful.
--- NOTE | 2021-03-06 14:42 | PC.NURSE ---
Ice helping to reduce swelling of penis
[2021-03-06 14:46] LABS: Add Manual Diff / Slide Review NO; Basophils Absolute Auto 0 /uL (0-100); Basophils Percent Auto 0.7 % (0-2); Eosinophils Absolute Auto 0 /uL (0-450); Eosinophils Percent Auto 0.6 % (2-4); Hematocrit 36.9 % (41-53); Hemoglobin 12.5 g/dL (13.5-17.5); Lymphocytes Absolute Auto 1000 /uL (1100-4500); Lymphocytes Percent Auto 21.8 % (25-40); Mean Corpuscular HGB Conc 33.9 % (30-36); Mean Corpuscular Hemoglobin 30.7 PG (26-34); Mean Corpuscular Volume 90.7 fL (80-100); Monocytes Absolute Auto 400 /uL (0-900); Monocytes Percent Auto 9.7 % (3-14); Neutrophils Absolute Auto 3000 /uL (1500-7000); Neutrophils Percent Auto 67.2 % (50-75); Platelet Count 139 X10^3/uL (150-400); Red Blood Cell Count 4.07 X10^6/uL (4.5-5.9); Red Cell Distribution Width 13.6 % (11.6-14.8); White Blood Cell Count 4.4 X10^3/uL (4.5-11.0)
[2021-03-06 15:03] LABS: Alanine Aminotransferase 6 IU/L (<50); Albumin 3.6 g/dL (3.5-5.0); Albumin Globulin Ratio 1.5 (1.0-2.8); Alkaline Phosphatase 42 U/L (38-126); Aspartate Aminotransferase 37 IU/L (17-59); BUN Creatinine Ratio 10.8 (6-22); Bilirubin Total 0.4 mg/dL (0.2-1.3); Blood Urea Nitrogen 9 mg/dL (9-20); Calcium 9.3 mg/dL (8.4-10.2); Carbon Dioxide 34 mmol/L (22-32); Chloride 106 mmol/L (98-107); Estimated Glomerular Filt Rate > 60.0 mL/min (>60); Globulin 2.4 g/dL (1.7-4.1); Glucose 152 mg/dL (80-110); HEMOLYSIS < 15 (0-50); Potassium 3.9 mmol/L (3.4-5.1); Sodium 140 mmol/L (137-145)
[2021-03-06 16:16] VITALS: BP 128/61; PULSE 67; RESP 18; O2SAT 94
--- NOTE | 2021-03-06 16:25 | ED.MALEGU ---
HPI - Male Genitourinary <Jailyn Yañez PA-C - Last Filed: 03/13/21 14:00> General Chief complaint: Urogenital-Male Stated complaint: Sent DR Narvaez office for Urology Time Seen by Provider: 03/06/21 13:46 Source: patient Mode of arrival: Ambulatory History of Present Illness HPI Narrative: 80-year-old male with past medical history Parkinson's disease, BPH, CAD, hypercholesterolemia presents to the ED with 1 day of difficulty urinating. Patient was discharged from the hospital yesterday after being treated for sepsis, Huerta catheter removed prior to discharge. Patient states that since the catheter was removed, patient has had penile swelling, difficulty urinating. Patient states he has not urinated since last night. Patient denies fever, chills, chest pain, shortness of breath, nausea, vomiting, abdominal pain. Patient endorses discomfort from a full bladder. Patient endorses that they have Huerta catheter insertion was traumatic. Related Data Home Medications Medication Instructions Recorded Confirmed carbidopa ER 50 mg-levodopa 200 mg 1 tab PO BEDTIME 90 Days tab 01/13/18 03/20/21 tablet,extended release donepezil 10 mg tablet 20 mg PO BEDTIME 90 Days tab 01/13/18 03/20/21 cholecalciferol (vitamin D3) 50 50 mcg PO DAILY 12/02/19 03/20/21 mcg (2,000 unit) capsule folic acid 400 mcg tablet 0.4 mg PO DAILY 12/02/19 03/20/21 saw palmetto 450 mg capsule 450 mg PO DAILY cap 12/02/19 03/20/21 fluticasone propionate 50 1 spray INTRANASAL BID 01/18/21 03/20/21 mcg/actuation nasal spray,suspension omeprazole 20 mg capsule,delayed 20 mg PO QAM 03/03/21 03/20/21 release tamsulosin 0.4 mg capsule 0.4 mg PO BEDTIME 03/03/21 03/20/21 carbidopa 25 mg-levodopa 100 mg 1 tab PO QID 03/05/21 03/20/21 tablet entacapone 200 mg tablet 100 mg PO BID tab 03/20/21 03/20/21 melatonin 1 mg chewable tablet 4 mg PO tab 03/20/21 03/20/21 Previous Rx's Medication Instructions Recorded citalopram 20 mg tablet (Celexa) 20 mg PO QDAY #90 tab 01/25/21 clonazepam 1 mg tablet 1.5 mg PO BID #270 tab 01/25/21 mirtazapine 45 mg tablet 45 mg PO BEDTIME #90 tab 01/25/21 pravastatin 20 mg tablet 20 mg PO BEDTIME #60 tab 02/26/21 docusate sodium 100 mg capsule 100 mg PO BID #30 cap 03/19/21 pantoprazole 40 mg tablet,delayed 40 mg PO DAILY 14 Days #14 tab 03/20/21 release Allergies Allergy/AdvReac Type Severity Reaction Status Date / Time No Known Drug Allergies Allergy Verified 03/20/21 11:45 Review of Systems <Jailyn Yañez PA-C - Last Filed: 03/13/21 14:00> Review of Systems ROS Unobtainable: All systems reviewed & are unremarkable except as noted in HPI and below Constitutional Constitutional: Denies chills, Denies fatigue, Denies fever(s), Denies frequent falls, Denies lethargy and Denies weakness Eyes Eyes: Denies change in vision, Denies eye discharge, Denies irritation and Denies loss of vision ENT Ears, Nose, Mouth, and Throat: Denies change in voice, Denies dizziness, Denies neck pain, Denies sore throat and Denies throat swelling Cardiovascular Cardiovascular: Denies chest pain, Denies irregular heart rhythm, Denies lightheadedness, Denies palpitations, Denies dyspnea, Denies dyspnea on exertion and Denies orthopnea Respiratory Respiratory: Denies cough, Denies dyspnea, Denies dyspnea on exertion and Denies wheezing Gastrointestinal Gastrointestinal: Denies abdominal pain, Denies change in bowel habits, Denies diarrhea, Denies nausea and Denies vomiting Genitourinary Genitourinary: Denies hematuria, Reports difficulty urinating, Denies flank pain, Denies urinary incontinence and Denies urinary urgency Comments: Penile swelling , difficulty urinating Musculoskeletal Musculoskeletal: Denies back pain, Denies muscle weakness, Denies neck pain, Denies numbness and Denies tingling Integumentary/Breasts Skin/Breast: Denies pruritus, Denies erythema, Denies rash and Denies wounds Neurologic Neurologic: Denies behavioral changes, Denies confusion, Denies dizziness, Denies frequent falls, Denies loss of vision, Denies numbness, Denies tingling and Denies weakness Psychiatric Psychiatric: Denies anxiety, Denies behavioral changes, Denies confusion, Denies depression, Denies homicidal ideation and Denies suicidal ideation Endocrine Endocrine: Denies fatigue, Denies flushing and Denies palpitations Hematologic/Lymphatic Hematologic/Lymphatic: Denies easy bruising Allergic/Immunologic Allergic/Immunologic: Denies urticaria, Denies throat swelling and Denies wheezing Patient History <Jailyn Yañez PA-C - Last Filed: 03/13/21 14:00> Medical History (Updated 03/21/21 @ 00:01 by ) Anxiety Arthritis Bilateral thigh pain Chicken pox Chickenpox (Unknown) Chronic back pain (1964) Chronic fatigue (2013) Colon polyps (2010) Coronary artery disease Depression (2014) Erectile dysfunction Foot pain (~2016) Hiatal hernia Hiatal hernia Hypercholesterolemia Hypertension Mumps (Unknown) Mumps Panic attacks Parkinson's disease (2014) Proximal muscle weakness Surgical History Anesthesia History of colonoscopy with polypectomy (11/19/17) History of colonoscopy with polypectomy (2009) History of tonsillectomy and adenoidectomy S/P CABG (coronary artery bypass graft) (06/2003) Status post coronary artery bypass graft Status post tonsillectomy and adenoidectomy Family History Father CAD (coronary artery disease) CVA (cerebral vascular accident) Hypertension Diabetes mellitus Heart attack Brain cancer Mother Hypertension Dementia Grandmother Diabetes mellitus Grandfather No problems noted. Brother No problems noted. Sister No problems noted. Social History household members: spouse Smoking Status: Never smoker alcohol intake: former Smoking Status: Never smoker alcohol intake frequency: 0-2 drinks per day Substance Use Type: does not use Exam <Jailyn Yañez PA-C - Last Filed: 03/13/21 14:00> Initial Vital Signs Initial Vital Signs: Vital Signs Temperature 98.9 F 03/06/21 13:36 Pulse Rate 83 03/06/21 13:36 Respiratory Rate 18 03/06/21 13:36 Pulse Oximetry 96 03/06/21 13:36 Const General: cooperative, healthy appearing and comfortable HENPR Head: normal to inspection Eyes General: appearance normal, both eyes and all related structures Neck Neck: normal visual inspection Chest Chest: normal inspection of the chest Resp Effort & Inspection: normal respiratory effort Auscultation: clear to auscultation bilaterally Cardio Rate: regular rate Rhythm: regular rhythm GI Inspection: normal to inspection Penis: non retractile foreskin, paraphimosis and swelling Skin General: no rashes or lesions noted Neuro General: patient alert, patient awake and patient oriented x3 Psych Appearance: grossly normal <Nhung Prince DO - Last Filed: 03/25/21 08:18> Initial Vital Signs Initial Vital Signs: Vital Signs Temperature 98.9 F 03/06/21 13:36 Pulse Rate 83 03/06/21 13:36 Respiratory Rate 18 03/06/21 13:36 Pulse Oximetry 96 03/06/21 13:36 Course <Jailyn Yañez PA-C - Last Filed: 03/13/21 14:00> Orders Ordered: Discontinued Medications Lidocaine HCl (Lidocaine 2% (Glydo) 6 Ml Gel) 6 ml TOP NOW ONE Stop: 03/06/21 13:56 Last Admin: 03/06/21 14:11 Dose: 6 ml Documented by: DELLUDSON Vital Signs Vital signs: Vital Signs - 8 hr 03/06/21 13:36 03/06/21 16:16 Temperature 98.9 F Pulse Rate 83 67 Respiratory Rate 18 18 Blood Pressure 128/61 Pulse Oximetry 96 94 <Nhung Prince DO - Last Filed: 03/25/21 08:18> Orders Ordered: Discontinued Medications Lidocaine HCl (Lidocaine 2% (Glydo) 6 Ml Gel) 6 ml TOP NOW ONE Stop: 03/06/21 13:56 Last Admin: 03/06/21 14:11 Dose: 6 ml Documented by: FHUDSON Vital Signs Vital signs: Vital Signs - 8 hr 03/06/21 13:36 03/06/21 16:16 Temperature 98.9 F Pulse Rate 83 67 Respiratory Rate 18 18 Blood Pressure 128/61 Pulse Oximetry 96 94 MDM - Male Genitourinary <Jailyn Yañez PA-C - Last Filed: 03/13/21 14:00> Medical Records Attestation: I reviewed the patient's medical records. Lab Data Lab results narrative: labs within normal limits Result diagrams: 03/06/21 14:41 03/06/21 14:41 Labs: Lab Results 03/06/21 03/06/21 03/06/21 Range/Units 14:03 14:41 14:41 WBC 4.4 L (4.5-11.0) X10^3/uL RBC 4.07 L (4.5-5.9) X10^6/uL Hgb 12.5 L (13.5-17.5) g/dL Hct 36.9 L (41-53) % MCV 90.7 (80-100) fL MCH 30.7 (26-34) PG MCHC 33.9 (30-36) % RDW 13.6 (11.6-14.8) % Plt Count 139 L (150-400) X10^3/uL Neut % (Auto) 67.2 (50-75) % Lymph % (Auto) 21.8 L (25-40) % [place] % (Auto) 9.7 (3-14) % Eos % (Auto) 0.6 L (2-4) % Baso % (Auto) 0.7 (0-2) % Neut # (Auto) 3000 (6212-5796) /uL Lymph # (Auto) 1000 L (9960-4128) /uL [place] # (Auto) 400 (0-900) /uL Eos # (Auto) 0 (0-450) /uL Baso # (Auto) 0 (0-100) /uL Sodium 140 (137-145) mmol/L Potassium 3.9 (3.4-5.1) mmol/L Chloride 106 (98-107) mmol/L Carbon Dioxide 34 H (22-32) mmol/L BUN 9 (9-20) mg/dL Creatinine 0.83 (0.66-1.25) mg/dL Estimated GFR > 60.0 (>60) mL/min BUN/Creatinine Ratio 10.8 (6-22) Glucose 152 H (80-110) mg/dL Calcium 9.3 (8.4-10.2) mg/dL Total Bilirubin 0.4 (0.2-1.3) mg/dL AST 37 (17-59) IU/L ALT 6 (<50) IU/L Alkaline Phosphatase 42 (38-126) U/L Total Protein 6.0 L (6.3-8.2) g/dL Albumin 3.6 (3.5-5.0) g/dL Globulin 2.4 (1.7-4.1) g/dL Albumin/Globulin Ratio 1.5 (1.0-2.8) Urine RBC 5-10/hpf H (0-5/HPF) Urine WBC 0-1/hpf (0-5/HPF) Ur Squamous Epith Cells 0-1 /hpf (0-5/HPF) Urine Bacteria None seen (None) Ur Culture Indicated? Cult not indicated Urine Dip Bedside Urine Glucose Negative Bedside Urine Bilirubin - Negative Bedside Urine Ketone - Negative Urine Specific [place] 1.010 Bedside Urine Occult Blood +++ Bedside Urine pH 6.0 Bedside Urine Protein - Negative Bedside Urine Urobilinogen - Negative Bedside Urine Nitrite - Negative Bedside Urine Leukocytes - Negative Esterase MDM Narrative Medical decision making narrative: 80-year-old male with past medical history Parkinson's disease, BPH, CAD, hypercholesterolemia presents to the ED with 1 day of difficulty urinating. concern for paraphimosis versus urethral inflammation versus urinary retention versus UTI Versus pyelonephritis. Will order labs, UA. will bladder scan, will apply ice, reassess. UA negative for UTI. Labs within normal limits. Penis swelling much reduced with application of ice. Foreskin was able to be reduced successfully. patient was able to urinate several times without discomfort. patient discharged home with ED return precautions. Patient verbalized understanding. <Nhung Prince, DO - Last Filed: 03/25/21 08:18> Lab Data Labs: Lab Results 03/06/21 03/06/21 03/06/21 Range/Units 14:03 14:41 14:41 WBC 4.4 L (4.5-11.0) X10^3/uL RBC 4.07 L (4.5-5.9) X10^6/uL Hgb 12.5 L (13.5-17.5) g/dL Hct 36.9 L (41-53) % MCV 90.7 (80-100) fL MCH 30.7 (26-34) PG MCHC 33.9 (30-36) % RDW 13.6 (11.6-14.8) % Plt Count 139 L (150-400) X10^3/uL Neut % (Auto) 67.2 (50-75) % Lymph % (Auto) 21.8 L (25-40) % [place] % (Auto) 9.7 (3-14) % Eos % (Auto) 0.6 L (2-4) % Baso % (Auto) 0.7 (0-2) % Neut # (Auto) 3000 (8356-9708) /uL Lymph # (Auto) 1000 L (2748-2580) /uL [place] # (Auto) 400 (0-900) /uL Eos # (Auto) 0 (0-450) /uL Baso # (Auto) 0 (0-100) /uL Sodium 140 (137-145) mmol/L Potassium 3.9 (3.4-5.1) mmol/L Chloride 106 (98-107) mmol/L Carbon Dioxide 34 H (22-32) mmol/L BUN 9 (9-20) mg/dL Creatinine 0.83 (0.66-1.25) mg/dL Estimated GFR > 60.0 (>60) mL/min BUN/Creatinine Ratio 10.8 (6-22) Glucose 152 H (80-110) mg/dL Calcium 9.3 (8.4-10.2) mg/dL Total Bilirubin 0.4 (0.2-1.3) mg/dL AST 37 (17-59) IU/L ALT 6 (<50) IU/L Alkaline Phosphatase 42 (38-126) U/L Total Protein 6.0 L (6.3-8.2) g/dL Albumin 3.6 (3.5-5.0) g/dL Globulin 2.4 (1.7-4.1) g/dL Albumin/Globulin Ratio 1.5 (1.0-2.8) Urine RBC 5-10/hpf H (0-5/HPF) Urine WBC 0-1/hpf (0-5/HPF) Ur Squamous Epith Cells 0-1 /hpf (0-5/HPF) Urine Bacteria None seen (None) Ur Culture Indicated? Cult not indicated Urine Dip Bedside Urine Glucose Negative Bedside Urine Bilirubin - Negative Bedside Urine Ketone - Negative Urine Specific [place] 1.010 Bedside Urine Occult Blood +++ Bedside Urine pH 6.0 Bedside Urine Protein - Negative Bedside Urine Urobilinogen - Negative Bedside Urine Nitrite - Negative Bedside Urine Leukocytes - Negative Esterase Discharge Plan Departure Patient Disposition: Home Clinical Impression: Acute urinary retention Instructions: DI for Urinary Retention in Men Activity Restrictions/Additional Instructions: You were evaluated in the ED today for difficulty urinating. It appears that he might have some swelling in your penis due to the urinary catheter removal from 2 days ago, which was likely causing your urinary issues. Your symptoms and swelling improved with ice and you were able to urinate comfortably in the ED. Return to the ED if you have trouble urinating, you develop fever, chills, increasing swelling in the penis. Prescriptions: No Action carbidopa-levodopa 50-200 mg tablet extended release 1 tab PO BEDTIME 90 Days 0RF donepezil 10 mg tablet 20 mg PO BEDTIME 90 Days 0RF folic acid 400 mcg tablet 0.4 mg PO DAILY 0RF saw palmetto 450 mg capsule 450 mg PO DAILY 0RF Rx Instructions: give with food (meal/snack) cholecalciferol (vitamin D3) 50 mcg (2,000 unit) capsule 50 mcg PO DAILY 0RF mirtazapine 45 mg tablet 45 mg PO BEDTIME Qty: 90 0RF Rx Instructions: Take 1 tab by mouth at bedtime. clonazepam 1 mg tablet 1.5 mg PO BID Qty: 270 0RF Rx Instructions: take one and a half tablets twice daily citalopram [Celexa] 20 mg tablet 20 mg PO QDAY Qty: 90 0RF pravastatin 20 mg tablet 20 mg PO BEDTIME Qty: 60 0RF docusate sodium 100 mg capsule 100 mg PO BID Qty: 30 0RF fluticasone propionate 50 mcg/actuation spray,suspension 1 spray intranasal BID 0RF Rx Instructions: administer into each nostril melatonin 1 mg tablet,chewable 4 mg PO 0RF entacapone 200 mg tablet 100 mg PO BID 0RF Rx Instructions: administer at the same time as l-dopa/carbidopa dose pantoprazole 40 mg tablet,delayed release (DR/EC) 40 mg PO DAILY 14 Days Qty: 14 0RF tamsulosin 0.4 mg capsule 0.4 mg PO BEDTIME 0RF omeprazole 20 mg capsule,delayed release(DR/EC) 20 mg PO QAM 0RF carbidopa-levodopa 25-100 mg tablet 1 tab PO QID 0RF Referrals: Raoul Salguero MD [Primary Care Provider] - <Nhung Prince DO - Last Filed: 03/25/21 08:18> Cosign ED Attending Cosignature Attestation: I was immediately available in the department for consultation. Documentation has been reviewed.
== END 2021-03-06 16:16 | disposition home or self-care (01) ==
PROVIDERS: Emergency Provider Student in an Organized Health Care Education/Training Program; PCP Student in an Organized Health Care Education/Training Program
DX: R33.9 Retention of urine, unspecified (principal)
CPT/HCPCS: 36415; 51798; 80053; 81003; 81015; 85025; 99283

== ENCOUNTER → 2021-03-28 13:33 | Outpatient (CLI) | payer MEDICARE, OTHER, SELFPAY ==
[2021-03-03 13:56] VITALS: BMI 21.6
--- NOTE | 2021-03-28 13:34 | DI.CT.S_ITS ---
PROCEDURE: CT ABDOMEN PELVIS W CON INDICATIONS: Re-assess enteritis TECHNIQUE: After the administration of oral and IV contrast, axial sections were acquired from the lung bases to the pubic symphysis. Coronal and sagittal reformats were performed. For radiation dose reduction, the following was used: automated exposure control, adjustment of mA and/or kV according to patient size. COMPARISON: [facility], CT, CT CHEST ABD PEL W CON, 03/03/2021, 5:00. [facility], CT, CT ABDOMEN PELVIS W CON, 08/16/2019, 13:37. FINDINGS: Image quality: Excellent. Lung bases: Bilateral lung bases are clear. Heart: Heart size is enlarged, no pericardial effusion. Median sternotomy wires are seen. ABDOMEN: Liver: Liver is normal in size. Possible small cyst in left hepatic lobe is again seen series 2, image 11 unchanged from prior study. Previously described 2.2 cm enhancing lesion in posterior periphery of right hepatic lobe remains unchanged series 2, image 19 and measures 2.2 x 1.7 cm in size on the current study.. Gallbladder: Calcified stones are seen in dependent portion of gallbladder lumen. No gallbladder wall thickening or pericholecystic fluid. Biliary ducts: Unremarkable. Pancreas: Unremarkable. Spleen: Spleen is normal in size. Small calcified granuloma are again seen in splenic parenchyma. Adrenal Glands: Unremarkable. Kidneys and Ureters: Unremarkable. Stomach and Bowel: There is no bowel obstruction.. No gastric or small bowel wall thickening is seen. Normal contrast opacification of small bowel loops are noted. Extensive fecal stasis throughout the colon is seen extending to the rectum suggestive of [id number] constipation and fecal impaction. No gross colonic wall thickening is noted. No mesenteric fat stranding. Peritoneum: No abnormal intraperitoneal fluid. No free air. Ventral Wall: No hernia. Abdominal Nodes: No retroperitoneal or mesenteric adenopathy by size criteria. Vessels: Aorta and inferior vena cava are normal in size. Moderate atherosclerotic calcifications throughout abdominal aorta is noted. PELVIS: Pelvic Organs: Markedly enlarged prostate gland with mass effect on floor of urinary bladder is seen. Bladder: No gross bladder wall abnormality. Urinary bladder is markedly distended. Pelvic Nodes: No enlarged lymph nodes. Miscellaneous: No inguinal hernias are seen. Bones: No suspicious bony lesion. No acute vertebral body compression fracture. Degenerative disc disease throughout lumbar spine is again seen and unchanged. IMPRESSION: 1. No abnormal stomach or bowel wall thickening is seen on the current study. No evidence of gastritis or enteritis is seen. No bowel obstruction. No free fluid or free air. Mild to moderate constipation and fecal impaction. 2. Stable possible hemangioma in right hepatic lobe and stable appearing sub cm hepatic cyst. 3. No acute inflammatory process is seen in abdomen and pelvis on the current study. 4. Moderate atherosclerotic disease. Dictated by: Brandon Cueto M.D. on 03/28/2021 at 15:42 Approved by: Brandon Cueto M.D. on 03/28/2021 at 15:49
== END ==
PROVIDERS: PCP Student in an Organized Health Care Education/Training Program; Referring Provider Student in an Organized Health Care Education/Training Program; Visit Provider Student in an Organized Health Care Education/Training Program
DX: R10.13 Epigastric pain (principal); K52.9 Noninfective gastroenteritis and colitis, unspecified; K29.90 Gastroduodenitis, unspecified, without bleeding; K56.41 Fecal impaction; I70.0 Atherosclerosis of aorta
CPT/HCPCS: 74177; Q9967

== ENCOUNTER 2021-03-31 18:20 | Emergency (ER) | payer MEDICARE, OTHER, SELFPAY ==
[2021-03-03 13:56] VITALS: BMI 21.6
[2021-03-31] VITALS (14 sets, daily range): BP systolic 134–198; BP diastolic 68–127; PULSE 61–78; RESP 21–66; TEMP 36.1; O2SAT 97–100; BMI 20.9
--- NOTE | 2021-03-31 18:32 | DI.RAD.S_ITS ---
PROCEDURE: XR CHEST 1V INDICATIONS: Flu like symptoms TECHNIQUE: One view of the chest was acquired. COMPARISON: [facility], CR, XR CHEST 1V, 03/03/2021, 3:29. FINDINGS: Surgical changes and devices: Median sternotomy and CABG change. Lungs and pleura: Clear lungs. No pneumothorax or pleural effusion. Mediastinum: Mediastinal contours appear normal. Heart size is normal. Bones and chest wall: No suspicious bony lesions. Overlying soft tissues appear unremarkable. IMPRESSION: 1. No acute cardiopulmonary disease. 2. Prior CABG. Dictated by: Vibha Baca M.D. on 03/31/2021 at 20:11 Approved by: Vibha Baca M.D. on 03/31/2021 at 20:12
[2021-03-31 19:08] LABS: Add Manual Diff / Slide Review NO; Basophils Absolute Auto 100 /uL (0-100); Eosinophils Absolute Auto 0 /uL (0-450); Eosinophils Percent Auto 0.5 % (2-4); Hematocrit 36.9 % (41-53); Hemoglobin 12.4 g/dL (13.5-17.5); Lymphocytes Absolute Auto 1400 /uL (1100-4500); Lymphocytes Percent Auto 24.3 % (25-40); Mean Corpuscular HGB Conc 33.5 % (30-36); Mean Corpuscular Hemoglobin 30.5 PG (26-34); Mean Corpuscular Volume 91.1 fL (80-100); Monocytes Absolute Auto 500 /uL (0-900); Neutrophils Absolute Auto 3600 /uL (1500-7000); Neutrophils Percent Auto 65.2 % (50-75); Platelet Count 129 X10^3/uL (150-400); Red Blood Cell Count 4.05 X10^6/uL (4.5-5.9); Red Cell Distribution Width 13.8 % (11.6-14.8); White Blood Cell Count 5.6 X10^3/uL (4.5-11.0)
[2021-03-31 19:19] LABS: Alanine Aminotransferase 6 IU/L (<50); Albumin 4.2 g/dL (3.5-5.0); Alkaline Phosphatase 50 U/L (38-126); Aspartate Aminotransferase 22 IU/L (17-59); BUN Creatinine Ratio 15.2 (6-22); Blood Urea Nitrogen 15 mg/dL (9-20); Calcium 9.8 mg/dL (8.4-10.2); Carbon Dioxide 31 mmol/L (22-32); Chloride 104 mmol/L (98-107); Creatine Kinase 27 U/L (55-170); Estimated Glomerular Filt Rate > 60.0 mL/min (>60); Globulin 2.1 g/dL (1.7-4.1); Glucose 136 mg/dL (80-110); HEMOLYSIS < 15 (0-50); Lactate (Lactic Acid) 1.6 mmol/L (0.7-2.1); Potassium 3.7 mmol/L (3.4-5.1); Sodium 137 mmol/L (137-145); Total Protein 6.3 g/dL (6.3-8.2)
[2021-03-31 19:24] LABS: NT-proBNP (BNP-Adult 18+) 444 pg/mL (<450)
[2021-03-31 19:41] LABS: COVID19 -Nasal RAPID Negative (Negative)
[2021-03-31 20:07] LABS: Troponin I < 0.012 ng/mL (0.01-0.034)
--- NOTE | 2021-03-31 20:20 | PC.NURSE ---
At 1830 during IV insertion pt noted to be hyperventilating and start shaking extremities, at bedside states this is common for pt r/t parkinsons. 1L NC applied r/t respiratory rate of 40. Spoke calmly to pt throughout process with explanations and reassurance. Provided a warm blanket and privacy. Pt now in room calm, respiratory rate 20, spo2 98% on RA, pt on phone with no shaking noted in extremities.
--- NOTE | 2021-03-31 20:47 | ED.GENADULT ---
HPI - General Adult General Chief complaint: Shortness of Breath/Dyspnea Stated complaint: SOB, can't breath Time Seen by Provider: 03/31/21 19:07 Source: patient and family Mode of arrival: Wheelchair History of Present Illness HPI narrative: Patient is a 81-year-old male. Has a history of Parkinson's disease. Is here with his for evaluation of shortness of breath. Patient's states that she left the house for short period of time when she came home she found that the patient seemed to be highly agitated. Look like he had been rubbing his hand. Was breathing fast. He was complaining of shortness of breath. He has had issues like this in the past. Has had issues with anxiety in the past. At the time my evaluation she thinks that he is much calmer than what he was earlier in the day. The patient denies chest pain. He states that it did feel like he was having an issue catching his breath. There is no cough. No fevers. He has had issues with urinary retention in the past but he feels like that he is urinating well without issues. Does not having lower extremity swelling. He has been taking his medications as directed Related Data Home Medications Medication Instructions Recorded Confirmed carbidopa ER 50 mg-levodopa 200 mg 1 tab PO BEDTIME 90 Days tab 01/13/18 03/20/21 tablet,extended release donepezil 10 mg tablet 20 mg PO BEDTIME 90 Days tab 01/13/18 03/20/21 cholecalciferol (vitamin D3) 50 50 mcg PO DAILY 12/02/19 03/20/21 mcg (2,000 unit) capsule folic acid 400 mcg tablet 0.4 mg PO DAILY 12/02/19 03/20/21 saw palmetto 450 mg capsule 450 mg PO DAILY cap 12/02/19 03/20/21 fluticasone propionate 50 1 spray INTRANASAL BID 01/18/21 03/20/21 mcg/actuation nasal spray,suspension omeprazole 20 mg capsule,delayed 20 mg PO QAM 03/03/21 03/20/21 release tamsulosin 0.4 mg capsule 0.4 mg PO BEDTIME 03/03/21 03/20/21 carbidopa 25 mg-levodopa 100 mg 1 tab PO QID 03/05/21 03/20/21 tablet entacapone 200 mg tablet 100 mg PO BID tab 03/20/21 03/20/21 melatonin 1 mg chewable tablet 4 mg PO tab 03/20/21 03/20/21 Previous Rx's Medication Instructions Recorded citalopram 20 mg tablet (Celexa) 20 mg PO QDAY #90 tab 01/25/21 clonazepam 1 mg tablet 1.5 mg PO BID #270 tab 01/25/21 mirtazapine 45 mg tablet 45 mg PO BEDTIME #90 tab 01/25/21 pravastatin 20 mg tablet 20 mg PO BEDTIME #60 tab 02/26/21 docusate sodium 100 mg capsule 100 mg PO BID #30 cap 03/19/21 pantoprazole 40 mg tablet,delayed 40 mg PO DAILY 14 Days #14 tab 03/20/21 release Allergies Allergy/AdvReac Type Severity Reaction Status Date / Time No Known Drug Allergies Allergy Verified 03/20/21 11:45 Review of Systems Constitutional Constitutional: Denies fever(s) and Denies headache(s) ENT Ears, Nose, Mouth, and Throat: Denies headache(s) Cardiovascular Cardiovascular: Denies chest pain, Denies rapid heart rate and Reports dyspnea Respiratory Respiratory: Denies cough and Reports dyspnea Gastrointestinal Gastrointestinal: Reports system reviewed and no additional complaints, except as documented Genitourinary Genitourinary: Reports system reviewed and no additional complaints, except as documented and Reports as per HPI Musculoskeletal Musculoskeletal: Reports system reviewed and no additional complaints, except as documented Integumentary/Breasts Skin/Breast: Reports system reviewed and no additional complaints, except as documented Neurologic Neurologic: Denies headache(s) Psychiatric Psychiatric: Reports anxiety Hematologic/Lymphatic On Anticoagulants: No Allergic/Immunologic Allergic/Immunologic: Reports system reviewed and no additional complaints, except as documented Patient History Medical History Anxiety Arthritis Bilateral thigh pain Chicken pox Chickenpox (Unknown) Chronic back pain (1965) Chronic fatigue (2014) Colon polyps (2010) Coronary artery disease Depression (2015) Erectile dysfunction Foot pain (~2017) Hiatal hernia Hiatal hernia Hypercholesterolemia Hypertension Mumps (Unknown) Mumps Panic attacks Parkinson's disease (2015) Proximal muscle weakness Surgical History Anesthesia History of colonoscopy with polypectomy (11/19/17) History of colonoscopy with polypectomy (2009) History of tonsillectomy and adenoidectomy S/P CABG (coronary artery bypass graft) (06/2003) Status post coronary artery bypass graft Status post tonsillectomy and adenoidectomy Family History Father CAD (coronary artery disease) CVA (cerebral vascular accident) Hypertension Diabetes mellitus Heart attack Brain cancer Mother Hypertension Dementia Grandmother Diabetes mellitus Grandfather No problems noted. Brother No problems noted. Sister No problems noted. Social History household members: spouse Smoking Status: Never smoker alcohol intake: former Smoking Status: Never smoker alcohol intake frequency: 0-2 drinks per day Substance Use Type: does not use Exam Initial Vital Signs Initial Vital Signs: Vital Signs Pulse Rate 69 03/31/21 18:33 Pulse Oximetry 97 03/31/21 18:33 Const General: cooperative and healthy appearing HENMT Head: normal to inspection and normocephalic Resp Effort & Inspection: normal respiratory effort Auscultation: clear to auscultation bilaterally Cardio Rate: regular rate Rhythm: regular rhythm GI Inspection: normal to inspection and non-distended Palpation: No tender Skin General: no rashes or lesions noted Neuro General: patient alert, patient awake and moves all extremities Extrem General: capillary refill normal and No edema Course Orders Ordered: ED Orders 03/31/21 21:09 Troponin I Stat Vital Signs Vital signs: Vital Signs - 8 hr 03/31/21 22:12 03/31/21 22:29 03/31/21 22:30 Pulse Rate 68 70 69 Respiratory Rate 22 22 Blood Pressure 173/69 H Pulse Oximetry 100 97 Medical Decision Making Medical Records Medical records reviewed: Yes I reviewed the patient's medical records. Lab Data Lab results reviewed: Yes I reviewed the patient's lab results. Result diagrams: 03/31/21 18:52 03/31/21 18:52 Labs: Lab Results 03/31/21 03/31/21 03/31/21 Range/Units 18:52 18:52 18:52 WBC 5.6 (4.5-11.0) X10^3/uL RBC 4.05 L (4.5-5.9) X10^6/uL Hgb 12.4 L (13.5-17.5) g/dL Hct 36.9 L (41-53) % MCV 91.1 (80-100) fL MCH 30.5 (26-34) PG MCHC 33.5 (30-36) % RDW 13.8 (11.6-14.8) % Plt Count 129 L (150-400) X10^3/uL Neut % (Auto) 65.2 (50-75) % Lymph % (Auto) 24.3 L (25-40) % [place] % (Auto) 9.0 (3-14) % Eos % (Auto) 0.5 L (2-4) % Baso % (Auto) 1.0 (0-2) % Neut # (Auto) 3600 (9006-8984) /uL Lymph # (Auto) 1400 (1892-6025) /uL [place] # (Auto) 500 (0-900) /uL Eos # (Auto) 0 (0-450) /uL Baso # (Auto) 100 (0-100) /uL Sodium 137 (137-145) mmol/L Potassium 3.7 (3.4-5.1) mmol/L Chloride 104 (98-107) mmol/L Carbon Dioxide 31 (22-32) mmol/L BUN 15 (9-20) mg/dL Creatinine 0.99 (0.66-1.25) mg/dL Estimated GFR > 60.0 (>60) mL/min BUN/Creatinine Ratio 15.2 (6-22) Glucose 136 H (80-110) mg/dL Lactate 1.6 (0.7-2.1) mmol/L Calcium 9.8 (8.4-10.2) mg/dL Total Bilirubin 1.0 (0.2-1.3) mg/dL AST 22 (17-59) IU/L ALT 6 (<50) IU/L Alkaline Phosphatase 50 (38-126) U/L Total Creatine Kinase 27 L (55-170) U/L CK-MB (CK-2) TNP CK-MB (CK-2) Rel Index TNP Troponin I < 0.012 (0.01-0.034) ng/mL NT-Pro-B Natriuret Pep 444 (<450) pg/mL Total Protein 6.3 (6.3-8.2) g/dL Albumin 4.2 (3.5-5.0) g/dL Globulin 2.1 (1.7-4.1) g/dL Albumin/Globulin Ratio 2.0 (1.0-2.8) SARS-CoV-2 (PCR) (Negative) 03/31/21 03/31/21 Range/Units 18:52 21:09 WBC (4.5-11.0) X10^3/uL RBC (4.5-5.9) X10^6/uL Hgb (13.5-17.5) g/dL Hct (41-53) % MCV (80-100) fL MCH (26-34) PG MCHC (30-36) % RDW (11.6-14.8) % Plt Count (150-400) X10^3/uL Neut % (Auto) (50-75) % Lymph % (Auto) (25-40) % [place] % (Auto) (3-14) % Eos % (Auto) (2-4) % Baso % (Auto) (0-2) % Neut # (Auto) (8480-8143) /uL Lymph # (Auto) (9296-3565) /uL [place] # (Auto) (0-900) /uL Eos # (Auto) (0-450) /uL Baso # (Auto) (0-100) /uL Sodium (137-145) mmol/L Potassium (3.4-5.1) mmol/L Chloride (98-107) mmol/L Carbon Dioxide (22-32) mmol/L BUN (9-20) mg/dL Creatinine (0.66-1.25) mg/dL Estimated GFR (>60) mL/min BUN/Creatinine Ratio (6-22) Glucose (80-110) mg/dL Lactate (0.7-2.1) mmol/L Calcium (8.4-10.2) mg/dL Total Bilirubin (0.2-1.3) mg/dL AST (17-59) IU/L ALT (<50) IU/L Alkaline Phosphatase (38-126) U/L Total Creatine Kinase (55-170) U/L CK-MB (CK-2) CK-MB (CK-2) Rel Index Troponin I < 0.012 (0.01-0.034) ng/mL NT-Pro-B Natriuret Pep (<450) pg/mL Total Protein (6.3-8.2) g/dL Albumin (3.5-5.0) g/dL Globulin (1.7-4.1) g/dL Albumin/Globulin Ratio (1.0-2.8) SARS-CoV-2 (PCR) Negative (Negative) Urine Dip Bedside Urine Glucose Negative Bedside Urine Bilirubin - Negative Bedside Urine Ketone +/- 5 Urine Specific Crowder 1.010 Bedside Urine Occult Blood - Negative Bedside Urine pH 8.0 Bedside Urine Protein - Negative Bedside Urine Urobilinogen - Negative Bedside Urine Nitrite - Negative Bedside Urine Leukocytes - Negative Esterase Point of care testing: Urine Dip Bedside Urine Glucose Negative Bedside Urine Bilirubin - Negative Bedside Urine Ketone +/- 5 Urine Specific Crowder 1.010 Bedside Urine Occult Blood - Negative Bedside Urine pH 8.0 Bedside Urine Protein - Negative Bedside Urine Urobilinogen - Negative Bedside Urine Nitrite - Negative Bedside Urine Leukocytes - Negative Esterase Imaging Data Chest x-ray: Radiologist's Impression: [address] [id number] XRay Report Signed Patient: Binu Dominguez MR#: [id number] : 1940 Acct:[id number] Age/Sex: 81 / M Date of Service: 03/31/21 Loc: ED Accession Number: [id number] ?? Procedure: XR chest 1V Ordering Provider: Gordon Rubalcava D.O. PROCEDURE:? XR CHEST 1V ? INDICATIONS:? Flu like symptoms ? TECHNIQUE:? One view of the chest was acquired.? ? COMPARISON:? [facility], , XR CHEST 1V, 03/03/2021, 3:29. ? FINDINGS:? ? Surgical changes and devices:? Median sternotomy and CABG change. ? Lungs and pleura:? Clear lungs.? No pneumothorax or pleural effusion. ? Mediastinum:? Mediastinal contours appear normal.? Heart size is normal.? ? Bones and chest wall:? No suspicious bony lesions.? Overlying soft tissues appear unremarkable.? ? IMPRESSION:? ? 1. No acute cardiopulmonary disease.? ? 2. Prior CABG.? ? ? Dictated by: Vibha Baca M.D. on 03/31/2021 at 20:11 ? ? Approved by: Vibha Baca M.D. on 03/31/2021 at 20:12 ECG Data Attestation: I personally reviewed and interpreted this ECG as follows: Interpretation: Sinus rhythm Ventricular rate of [address] T wave changes MDM Narrative Medical decision making narrative: Patient's workup here in the emergency department is very reassuring. Postvoid residual only showed slightly over 100 cc of urine in his bladder. Patient is not hypoxic. Clear lung exam. Unremarkable labs. Unremarkable EKG. I do have a high suspicion based on what his describes that the shortness of breath he was having earlier today is anxiety. Unsure as to what triggered the anxiety however he has had these issues in the past. Patient's states that he seems to be back to baseline and certainly much better than what he was earlier in the day. Patient does not require admission to the hospital. Will hold on making any changes to his medications. They were given return precautions and follow-up instructions. They expressed understanding and agreement. Discharge Plan Departure Patient Disposition: Home Clinical Impression: Parkinson's disease Instructions: DI for Parkinson Disease Activity Restrictions/Additional Instructions: Continue to take all of your medications as directed. Contact your primary doctor for a Follow-up. Return to the emergency department for any new or worsening symptoms. Prescriptions: No Action carbidopa-levodopa 50-200 mg tablet extended release 1 tab PO BEDTIME 90 Days 0RF donepezil 10 mg tablet 20 mg PO BEDTIME 90 Days 0RF folic acid 400 mcg tablet 0.4 mg PO DAILY 0RF saw palmetto 450 mg capsule 450 mg PO DAILY 0RF Rx Instructions: give with food (meal/snack) cholecalciferol (vitamin D3) 50 mcg (2,000 unit) capsule 50 mcg PO DAILY 0RF mirtazapine 45 mg tablet 45 mg PO BEDTIME Qty: 90 0RF Rx Instructions: Take 1 tab by mouth at bedtime. clonazepam 1 mg tablet 1.5 mg PO BID Qty: 270 0RF Rx Instructions: take one and a half tablets twice daily citalopram [Celexa] 20 mg tablet 20 mg PO QDAY Qty: 90 0RF pravastatin 20 mg tablet 20 mg PO BEDTIME Qty: 60 0RF docusate sodium 100 mg capsule 100 mg PO BID Qty: 30 0RF fluticasone propionate 50 mcg/actuation spray,suspension 1 spray intranasal BID 0RF Rx Instructions: administer into each nostril melatonin 1 mg tablet,chewable 4 mg PO 0RF entacapone 200 mg tablet 100 mg PO BID 0RF Rx Instructions: administer at the same time as l-dopa/carbidopa dose pantoprazole 40 mg tablet,delayed release (DR/EC) 40 mg PO DAILY 14 Days Qty: 14 0RF tamsulosin 0.4 mg capsule 0.4 mg PO BEDTIME 0RF omeprazole 20 mg capsule,delayed release(DR/EC) 20 mg PO QAM 0RF carbidopa-levodopa 25-100 mg tablet 1 tab PO QID 0RF Referrals: Raoul Salguero MD [Primary Care Provider] -
[2021-03-31 21:43] LABS: Troponin I < 0.012 ng/mL (0.01-0.034)
== END 2021-03-31 22:35 | disposition home or self-care (01) ==
PROVIDERS: Emergency Provider Emergency Medicine; PCP Student in an Organized Health Care Education/Training Program
DX: G20 Parkinson's disease (principal); Z20.822 Contact with and (suspected) exposure to COVID-19
CPT/HCPCS: 36415; 51798; 71045; 80053; 81003; 82550; 83605; 83880; 84484; 85025; 87635; 93005; 93010; 99284; 99285; C9803

== ENCOUNTER → 2021-05-24 08:05 | Outpatient (CLI) | payer MEDICARE, OTHER, SELFPAY ==
[2021-03-03 13:56] VITALS: BMI 21.6
--- NOTE | 2021-05-24 08:07 | DI.RAD.S_ITS ---
PROCEDURE: FL BARIUM SWALLOW W SPEECH INDICATIONS: Dysphagia COMPARISON: TECHNIQUE: Examination was conducted in conjunction with speech pathology per standard protocol. In the lateral projection, filming was performed of the patient swallowing. AP projection filming may also be performed with patient swallowing. COMPARISON: [facility], CR, XR CHEST 1V, 03/31/2021, 19:01. FINDINGS: Function: The oral preparatory phase appears delayed, with proper containment. The subsequent oral propulsive phase, pharyngeal phase, and esophageal phase of swallowing also appear normal with all proffered substances. There is trace laryngotracheal penetration and aspiration. No cough reflex triggered. No pathologic vallecular pooling. Morphology: No cricopharyngeal bar is identified. No cervical esophageal webs. No Zenker's diverticulum. No strictures. IMPRESSION: Trace laryngeal penetration and aspiration. Please see speech pathology is report for detail Dictated by: Marley Alicea M.D. on 05/24/2021 at 14:33 Approved by: Marley Alicea M.D. on 05/24/2021 at 14:34
--- NOTE | 2021-05-24 13:12 | ST.SWALLOW ---
Visit Care Team Role Provider Type Raoul Salguero MD Attending Provider Physician Primary Care Provider Referring Provider Specialty: Internal Medicine Address: [address] [place] [address], [address], [address] Email: [email or web address] Modified Barium Swallow Study [employer] Modified Barium Swallow Study Start: 05/24/21 11:52 Freq: Status: Active Protocol: Document 05/24/21 11:53 LNK (Rec: 05/24/21 13:11 LNK [id number]) Modified Barium Swallow Study Total Time Visit Start Time 08:30 Visit Stop Time 09:30 Total Visit Minutes 60 Visit Information Visit Number [address] Salguero Setting Setting Outpatient Care Patient Information Identification Type Name,Date of Patient History Pt presented for a Modified Barium Swallow Study at the referral of Dr. Salguero, pt's PCP. pt has medical disgnosis of Parkinson's Disease. Pt reported that he has no appetite and doesn't eat much. He does report that he feels like foods stick in his throat when he eats, needing to drink water or eat applesauce to get food to pass to stomach . He denies coughing/choking when he eats/drinks. Subjective Observations Pt was assisted in to the fluoroscopy chair from a wheelchair. His was in waiting area during the assessment. Instructions and procedures were described for the pt, he indicated he understood and agreed to proceed. Patient Positioning Position View Lateral Imaging Lateral View Textures Administered Trials Presented Thin Liquid via Spoon,Thin Liquid via Straw,Rock House Liquid via Spoon,Rock House Liquid via Straw,Honey Liquid via Spoon, Pudding Thick Liquid via Spoon ,Regular Textures,Barium Tablet Oral Phase Source: MBSIMP (TM) (C) Bolus Specific Scoring Grid Lip Closure Minimal Impairment Tongue Control During Bolus Hold Mild Impairment Bolus Prep/Mastication Minimal Impairment Bolus Transport/Lingual Motion Mild Impairment A/P Lingual Propulsion Delay No Oral Residue Minimal Impairment Residue Clearing Minimal Impairment Nasal Regurgitation No Additional Oral Phase Observations Pt's dentition included an upper denture and a lower partial, which were adequate for mastication. Premature spillage from the oral cavity was observed for all trials. Oral residue observed along the tongue body, under the tongue and at the base of tongue. For the barium tablet trial, the pt was not beckie to get the tablet off of the tongue body and into the pharynx with water. Eventually this trial was abandoned. Pharyngeal Phase Source: MBSIMP (TM) (C) Bolus Specific Scoring Grid Delayed Initiation of Pharyngeal Swallow Yes: Premature spillage tov t he pyriform sinuses pre- swallow response Soft Palate Elevation Mild Impairment Tongue Base Strength/Range of Motion Moderate Impairment Residue Along the Tongue Base Yes Clearance of Residue Along Tongue Base Mild Impairment Laryngeal Elevation Mild Impairment Anterior Hyoid Movement Moderate Impairment Epiglottic Range of Motion Moderate Impairment Vallecular Residue Yes Clearance of Vallecular Residue Mild Impairment Laryngeal Vestibular Closure Moderate Impairment Pharyngeal Stripping Wave Moderate Impairment Posterior Pharyngeal Wall Residue Yes Clearance of Posterior Pharyngeal Wall Mild Impairment Residue Upper Esophageal Sphincter Opening WFL Clearance of Residue in the Pyriform Mild Impairment Sinuses Esophageal Clearance Upright Position WFL Pharyngoesophageal Backflow Observed No Additional Pharyngeal Phase Observations Laryngeal elevation was mildly reduced with the hyoid demonstrating minimal forward movement. The epiglottis was observed to invert with complete ROM inconsistently. At times there was a good seal of the laryngeal vestibule, while other times the epiglottis was horizontal in the pharynx without laryngeal protection. Posterior pharyngeal wall stripping/ contraction was minimal, negatively affecting the control of the bolus flow to the UES. Poncho penetration was observed 4x with contrast aspirated x1 (all silent). Contrast residue remained within the larynx and on/under the vocal folds during the assessment. Cues to cough were not effective in clearing the residue from the vestibule or the vocal folds. Moderate pharyngeal residue was noted at the valeculla, the pyriform sinuses, base of tongue and posterior pharyngeal wall. Subsequent swallows did eventually clear contrast from pharynx. Using the safe swallow strategy to tuck chin was effective in reducing risk for penetration/aspiration. Single sips at a time were recommended to keep the size of the bolus small. A/P View A/P View Observations Additional Observations Observation of the proximal esophagus noted clearance WFL. Clinical Impressions Findings Pt reports a sensation of foods sticking when he eats solids. Liquids and soft foods are easier to swallow. No observation of solids sticking during MBSS. Pt reported a history of hiatal hernia and GERD, both of which may be related to a sense of globus. Additionally, given the pt's age and relatively advanced stage of Parkinson's disease, his esophageal motility may be dysfunctional, contributing to his sense of globus (i.e., stasis). The pt reports no appetite or desire for foods. ST for safe swallowing strategies may be helpful to reduce aspiration risk, but cannot address pt's reluctance to eat. Patient Appropriate for Therapy Yes: Training in safe swallow strategies Recommendations Diet Liquids Order Thin Diet Order Dysphagia Mechanical Medication Recommendation Crushed in Carrier Additional Dietary Needs Chopped Food,Encourage to Self -Feed Aspiration Precautions Recommended Precautions Upright at 90 Degrees, Alternate Liquids/Solids, Frequent Rest Periods,Small Bites/Sips,Chin Tuck Treatment Plan Therapy Recommendations Outpatient Speech Therapy, Compensatory Strategy Education Recommended Referrals Primary Care Physician Compensatory Strategies Recommendations Sitting Upright (90 deg),Chin Tuck,Liquids from Straw,Small Bites and Sips,Alternate Liquids/Solids Short Term Goals Pt will be educated in safe swallowing strategies to reduce risk of aspiration Metal Polisher Goals Pt will safely tolerate the lease restrictive diet without s/sx aspiration.
== END ==
PROVIDERS: PCP Student in an Organized Health Care Education/Training Program; Referring Provider Student in an Organized Health Care Education/Training Program; Visit Provider Student in an Organized Health Care Education/Training Program
DX: R13.10 Dysphagia, unspecified (principal); G20 Parkinson's disease
CPT/HCPCS: 74230; 92611

== ENCOUNTER 2021-06-07 13:55 | Inpatient (IN) | payer MEDICARE, OTHER, SELFPAY ==
[2021-03-03 13:56] VITALS: BMI 21.6
[2021-06-07] VITALS (12 sets, daily range): BP systolic 97–146; BP diastolic 54–67; PULSE 62–74; RESP 18–26; TEMP 36.6; O2SAT 96–99; BMI 17.3
[2021-06-07 15:00] LABS: Add Manual Diff / Slide Review NO; Basophils Absolute Auto 0 /uL (0-100); Basophils Percent Auto 0.9 % (0-2); Eosinophils Absolute Auto 0 /uL (0-450); Hematocrit 41.9 % (41-53); Lymphocytes Absolute Auto 1000 /uL (1100-4500); Mean Corpuscular HGB Conc 33.3 % (30-36); Mean Corpuscular Hemoglobin 30.7 PG (26-34); Mean Corpuscular Volume 92.3 fL (80-100); Monocytes Absolute Auto 300 /uL (0-900); Monocytes Percent Auto 5.3 % (3-14); Neutrophils Absolute Auto 3600 /uL (1500-7000); Neutrophils Percent Auto 73.8 % (50-75); Platelet Count 119 X10^3/uL (150-400); Red Blood Cell Count 4.54 X10^6/uL (4.5-5.9); Red Cell Distribution Width 15.3 % (11.6-14.8); White Blood Cell Count 4.9 X10^3/uL (4.5-11.0)
[2021-06-07 15:05] LABS: Albumin 4.1 g/dL (3.5-5.0); Albumin Globulin Ratio 1.6 (1.0-2.8); Alkaline Phosphatase 45 U/L (38-126); Aspartate Aminotransferase 23 IU/L (17-59); BUN Creatinine Ratio 30.8 (6-22); Bilirubin Total 0.9 mg/dL (0.2-1.3); Blood Urea Nitrogen 24 mg/dL (9-20); Calcium 9.3 mg/dL (8.4-10.2); Carbon Dioxide 32 mmol/L (22-32); Chloride 104 mmol/L (98-107); Estimated Glomerular Filt Rate > 60 mL/min (>60); Globulin 2.6 g/dL (1.7-4.1); Glucose 101 mg/dL (80-110); HEMOLYSIS < 15 (0-50); Lipase 156 U/L (23-300); Potassium 3.9 mmol/L (3.4-5.1); Sodium 141 mmol/L (137-145); Total Protein 6.7 g/dL (6.3-8.2)
[2021-06-07 15:07] LABS: Alanine Aminotransferase < 4 IU/L (<50)
[2021-06-07] MEDS: SODIUM CHLORIDE 0.9% 1,000 ML 1000 ML IV (15:53)
--- NOTE | 2021-06-07 15:57 | ED.RECABL ---
HPI - Recheck/Abnormal Lab/Rx <Dawood Hyde PA-C - Last Filed: 06/07/21 19:48> General Chief Complaint: Recheck/Abnormal Lab/Rx Stated Complaint: severly dehydrated - sent by [facility] Time Seen by Provider: 06/07/21 15:29 Source: patient and family Mode of arrival: Wheelchair History of Present Illness HPI narrative: Patient is an 81-year-old male with history of Parkinson's disease who presents to the emergency department for an evaluation of dehydration. Patient's who is at bedside states that approximately 2 days ago the patient was evaluated by his neurologist and was believed to be dehydrated. She states that the patient was evaluated by [facility] today and was urged to come to the emergency department for the patient's condition. Patient's states that the patient does not eat and drink regularly, stating that the patient does not have an appetite. Additionally, patient states that he has not experienced a bowel movement in at least the last 5 days and has been experiencing abdominal pain. Of note, patient's states that the patient's neurologist became concerned that the patient's abdomen did appear ?distended? during his most recent visit with the neurologist. No fevers, chills, chest pain, cough, shortness of breath, nausea, vomiting, diarrhea, dysuria, hematuria, or any other concerning symptoms. No further concerns were voiced at this time. Related Data Home Medications Medication Instructions Recorded Confirmed carbidopa ER 50 mg-levodopa 200 mg 1 tab PO BEDTIME 90 Days tab 01/13/18 05/24/21 tablet,extended release donepezil 10 mg tablet 20 mg PO BEDTIME 90 Days tab 01/13/18 05/24/21 cholecalciferol (vitamin D3) 50 50 mcg PO DAILY 12/02/19 05/24/21 mcg (2,000 unit) capsule folic acid 400 mcg tablet 0.4 mg PO DAILY 12/02/19 05/24/21 saw palmetto 450 mg capsule 450 mg PO DAILY cap 12/02/19 05/24/21 omeprazole 20 mg capsule,delayed 20 mg PO QAM 03/03/21 05/24/21 release carbidopa 25 mg-levodopa 100 mg 1 tab PO QID 03/05/21 05/24/21 tablet entacapone 200 mg tablet 100 mg PO BID tab 03/20/21 05/24/21 melatonin 1 mg chewable tablet 4 mg PO tab 03/20/21 05/24/21 Previous Rx's Medication Instructions Recorded citalopram 20 mg tablet (Celexa) 20 mg PO QDAY #90 tab 01/25/21 mirtazapine 45 mg tablet 45 mg PO BEDTIME #90 tab 01/25/21 docusate sodium 100 mg capsule 100 mg PO BID #60 cap 04/05/21 pravastatin 20 mg tablet 20 mg PO BEDTIME #90 tab 04/20/21 tamsulosin 0.4 mg capsule 0.8 mg PO BEDTIME #180 cap 05/07/21 clonazepam 1 mg tablet 1.5 mg PO BID PRN #90 tab 06/02/21 Allergies Allergy/AdvReac Type Severity Reaction Status Date / Time No Known Drug Allergies Allergy Verified 05/24/21 09:11 Review of Systems <Dawood Hyde PA-C - Last Filed: 06/07/21 19:48> Constitutional Constitutional: Denies chills, Denies fatigue, Denies fever(s), Denies frequent falls, Denies lethargy, Reports poor appetite, Denies weakness and Reports other (Dehydration) Eyes Eyes: Denies loss of vision ENT Ears, Nose, Mouth, and Throat: Denies dizziness and Denies neck pain Cardiovascular Cardiovascular: Denies chest pain, Denies irregular heart rhythm, Denies lightheadedness, Denies palpitations, Denies dyspnea, Denies dyspnea on exertion and Denies orthopnea Respiratory Respiratory: Denies cough, Denies dyspnea, Denies dyspnea on exertion and Denies wheezing Gastrointestinal Gastrointestinal: Reports abdominal pain, Denies change in bowel habits, Reports constipation, Denies diarrhea, Denies nausea and Denies vomiting Genitourinary Genitourinary: Denies hematuria, Denies flank pain, Denies urinary incontinence and Denies urinary urgency Musculoskeletal Musculoskeletal: Denies back pain, Denies muscle weakness, Denies neck pain, Denies numbness and Denies tingling Integumentary/Breasts Skin/Breast: Denies pruritus, Denies erythema, Denies rash and Denies wounds Neurologic Neurologic: Denies behavioral changes, Denies confusion, Denies dizziness, Denies frequent falls, Denies loss of vision, Denies numbness, Denies tingling and Denies weakness Psychiatric Psychiatric: Denies behavioral changes and Denies confusion Endocrine Endocrine: Denies fatigue and Denies palpitations Allergic/Immunologic Allergic/Immunologic: Denies wheezing Patient History <Dawood Hyde PA-C - Last Filed: 06/07/21 19:48> Medical History Anxiety Arthritis Bilateral thigh pain BPPV (benign paroxysmal positional vertigo) Brain TIA Chicken pox Chickenpox (Unknown) Chronic back pain (1965) Chronic constipation Chronic fatigue (2013) Colon polyps (2010) Coronary artery disease Depression (2015) Erectile dysfunction Foot pain (~2016) Hiatal hernia Hypercholesterolemia Hypertension Mumps Panic attacks Parkinson's disease (2014) Proximal muscle weakness Surgical History Anesthesia History of colonoscopy with polypectomy (11/19/17) History of colonoscopy with polypectomy (2009) History of tonsillectomy and adenoidectomy S/P CABG (coronary artery bypass graft) (06/2003) Status post coronary artery bypass graft Status post tonsillectomy and adenoidectomy Family History Father CAD (coronary artery disease) CVA (cerebral vascular accident) Hypertension Diabetes mellitus Heart attack Brain cancer Mother Hypertension Dementia Grandmother Diabetes mellitus Grandfather No problems noted. Brother No problems noted. Sister No problems noted. Social History household members: spouse Smoking Status: Never smoker alcohol intake: former Smoking Status: Never smoker alcohol intake frequency: 0-2 drinks per day Substance Use Type: does not use Exam <Dawood Hyde PA-C - Last Filed: 06/07/21 19:48> Narrative Exam Narrative: GENERAL: 81 year old patient appears stated age. Well-developed patient, in mild distress. Cachectic. HEAD: Atraumatic. Normocephalic. EYES: Pupils equal round and reactive. Extraocular motions intact. No scleral icterus. No injection or drainage. ENT: Nose without bleeding, purulent drainage. Throat without erythema, tonsillar hypertrophy or exudate. Airway patent. NECK: Trachea midline. Non tender CARDIOVASCULAR: Regular rate and rhythm without murmurs, gallops, or rubs. RESPIRATORY: Clear to auscultation. Breath sounds equal bilaterally. No wheezes, rales, or rhonchi. GASTROINTESTINAL: Abdomen soft, nondistended. Generalized abdominal tenderness to palpation throughout all 4 quadrants of the abdomen. EXTREMITIES: No edema or joint tenderness. BACK: Nontender without deformity or crepitance. No flank tenderness. NEURO: AOx3. SKIN: No rash or erythema of visible areas Initial Vital Signs Initial Vital Signs: Vital Signs Temperature 97.8 F 06/07/21 14:20 Pulse Rate 67 06/07/21 14:20 Respiratory Rate 18 06/07/21 14:20 Blood Pressure 97/54 L 06/07/21 14:20 Pulse Oximetry 97 06/07/21 14:20 Course <Dawood Hyde PA-C - Last Filed: 06/07/21 19:48> Course Course Narrative: CBC, CMP, lipase, urine dip, troponin, COVID test, EKG, CT of the abdomen pelvis with IV contrast obtained. Discussed results of lab studies and CT imaging with the patient and informed him that it does appear that CT scan has shown signs of possible protein malnutrition. I informed the patient that it is important to discuss possible increased home care, or the possibility of hospice care should be discussed. Patient states that he is open to the idea of admission. Orders Ordered: ED Orders 06/07/21 14:33 EKG-12 Lead Stat 06/07/21 14:51 Complete Blood Count AUTO DIFF Stat Comprehensive Metabolic Panel Stat Lipase Stat Troponin & CK Cardiac Panel Stat 06/07/21 15:49 COVID19 -Nasal RAPID/Pre-Proc Stat 06/07/21 16:03 CT abdomen pelvis w con Stat Discontinued Medications Sodium Chloride (Normal Saline 0.9%) 1,000 mls @ 1,000 mls/hr IV BOLUS ONE Stop: 06/07/21 16:33 Last Infusion: 06/07/21 18:59 Dose: 0 mls/hr Documented by: Admin: 06/07/21 15:53 Dose: 1,000 mls/hr Documented by: [email or web address] Consultations Consultation #1: Consultation with Dr. Liang (internal medicine). Discussed case and studies obtained in the emergency department today. She accepts patient for admission. Time: 18:25 Vital Signs Vital signs: Vital Signs - 8 hr 06/07/21 14:20 06/07/21 15:00 06/07/21 15:01 Temperature 97.8 F Pulse Rate 67 71 72 Respiratory Rate 18 22 Blood Pressure 97/54 L 119/60 Pulse Oximetry 97 97 98 06/07/21 15:30 06/07/21 16:00 06/07/21 16:30 Temperature Pulse Rate 62 62 72 Respiratory Rate 21 18 22 Blood Pressure 118/62 146/67 H 135/65 Pulse Oximetry 97 98 98 06/07/21 16:31 06/07/21 17:00 06/07/21 17:30 Temperature Pulse Rate 74 66 63 Respiratory Rate 19 21 18 Blood Pressure 136/63 116/57 L Pulse Oximetry 97 99 98 06/07/21 17:31 06/07/21 18:00 Temperature Pulse Rate 64 71 Respiratory Rate 19 26 H Blood Pressure 142/62 H 127/64 Pulse Oximetry 98 97 MDM - Recheck/Abnormal Lab/Rx <Dawood Hyde PA-C - Last Filed: 06/07/21 19:48> Lab Data Result diagrams: 06/07/21 14:51 06/07/21 14:51 Labs: Lab Results 06/07/21 06/07/21 06/07/21 Range/Units 14:51 14:51 14:51 WBC 4.9 (4.5-11.0) X10^3/uL RBC 4.54 (4.5-5.9) X10^6/uL Hgb 14.0 (13.5-17.5) g/dL Hct 41.9 (41-53) % MCV 92.3 (80-100) fL MCH 30.7 (26-34) PG MCHC 33.3 (30-36) % RDW 15.3 H (11.6-14.8) % Plt Count 119 L (150-400) X10^3/uL Neut % (Auto) 73.8 (50-75) % Lymph % (Auto) 20.0 L (25-40) % [place] % (Auto) 5.3 (3-14) % Eos % (Auto) 0.0 L (2-4) % Baso % (Auto) 0.9 (0-2) % Neut # (Auto) 3600 (3639-3600) /uL Lymph # (Auto) 1000 L (1268-4007) /uL [place] # (Auto) 300 (0-900) /uL Eos # (Auto) 0 (0-450) /uL Baso # (Auto) 0 (0-100) /uL Sodium 141 (137-145) mmol/L Potassium 3.9 (3.4-5.1) mmol/L Chloride 104 (98-107) mmol/L Carbon Dioxide 32 (22-32) mmol/L BUN 24 H (9-20) mg/dL Creatinine 0.78 (0.66-1.25) mg/dL Estimated GFR > 60 (>60) mL/min BUN/Creatinine Ratio 30.8 H (6-22) Glucose 101 (80-110) mg/dL Calcium 9.3 (8.4-10.2) mg/dL Total Bilirubin 0.9 (0.2-1.3) mg/dL AST 23 (17-59) IU/L ALT < 4 (<50) IU/L Alkaline Phosphatase 45 (38-126) U/L Total Creatine Kinase < 20 L (55-170) U/L CK-MB (CK-2) TNP CK-MB (CK-2) Rel Index TNP Troponin I < 0.012 (0.01-0.034) ng/mL Total Protein 6.7 (6.3-8.2) g/dL Albumin 4.1 (3.5-5.0) g/dL Globulin 2.6 (1.7-4.1) g/dL Albumin/Globulin Ratio 1.6 (1.0-2.8) Lipase 156 (23-300) U/L SARS-CoV-2 (PCR) (Negative) 06/07/21 Range/Units 15:49 WBC (4.5-11.0) X10^3/uL RBC (4.5-5.9) X10^6/uL Hgb (13.5-17.5) g/dL Hct (41-53) % MCV (80-100) fL MCH (26-34) PG MCHC (30-36) % RDW (11.6-14.8) % Plt Count (150-400) X10^3/uL Neut % (Auto) (50-75) % Lymph % (Auto) (25-40) % [place] % (Auto) (3-14) % Eos % (Auto) (2-4) % Baso % (Auto) (0-2) % Neut # (Auto) (7382-1683) /uL Lymph # (Auto) (4335-5282) /uL [place] # (Auto) (0-900) /uL Eos # (Auto) (0-450) /uL Baso # (Auto) (0-100) /uL Sodium (137-145) mmol/L Potassium (3.4-5.1) mmol/L Chloride (98-107) mmol/L Carbon Dioxide (22-32) mmol/L BUN (9-20) mg/dL Creatinine (0.66-1.25) mg/dL Estimated GFR (>60) mL/min BUN/Creatinine Ratio (6-22) Glucose (80-110) mg/dL Calcium (8.4-10.2) mg/dL Total Bilirubin (0.2-1.3) mg/dL AST (17-59) IU/L ALT (<50) IU/L Alkaline Phosphatase (38-126) U/L Total Creatine Kinase (55-170) U/L CK-MB (CK-2) CK-MB (CK-2) Rel Index Troponin I (0.01-0.034) ng/mL Total Protein (6.3-8.2) g/dL Albumin (3.5-5.0) g/dL Globulin (1.7-4.1) g/dL Albumin/Globulin Ratio (1.0-2.8) Lipase (23-300) U/L SARS-CoV-2 (PCR) Negative (Negative) Urine Dip Bedside Urine Glucose Negative Bedside Urine Bilirubin - Negative Bedside Urine Ketone + 15 Urine Specific [place] 1.020 Bedside Urine Occult Blood - Negative Bedside Urine pH 6.0 Bedside Urine Protein - Negative Bedside Urine Urobilinogen - Negative Bedside Urine Nitrite - Negative Bedside Urine Leukocytes - Negative Esterase Imaging Data CT scan - abdomen/pelvis: Radiologist's Impression: PROCEDURE:? CT ABDOMEN PELVIS W CON ? INDICATIONS:? Abdominal pain, distension ? TECHNIQUE:? After the administration of oral and IV contrast, axial sections were acquired from the lung bases to the pubic symphysis.? Coronal and sagittal reformats were performed.? For radiation dose reduction, the following was used:? automated exposure control, adjustment of mA and/or kV according to patient size. ? COMPARISON:? [facility], CT, CT ABDOMEN PELVIS W CON, 03/28/2021, 14:50. ? FINDINGS:? Image quality:? Excellent.? ? Lung bases:? Median sternotomy changes.? Clear lung bases. Heart:? Mild cardiomegaly with postoperative changes. ? ? ABDOMEN: Liver:? Hypodensities in the right and left hepatic lobes, the largest in the right hepatic lobe measuring about 2.3 cm has morphology of a hemangioma. Gallbladder:? Normal gallbladder wall thickness.? Small calcified stone at the fundus. Biliary ducts:? Nondilated. Pancreas:? Mildly dilated smooth pancreatic duct.? No pancreatic mass or peripancreatic inflammation. Spleen:? Several granulomas through out the spleen. Adrenal Glands:? No masses. Kidneys and Ureters:? Normal enhancement.? No hydronephrosis.? No hydroureter. ? Stomach and Bowel:? Stomach and small bowel loops are within normal limits.? Oral contrast has moved to the colon which is redundant in the pelvis but is otherwise normal. Peritoneum:? There is a paucity of intraperitoneal fat and moderate generalized edema throughout retroperitoneal fat.? No free intraperitoneal air or visible free fluid. ? Ventral Wall: ? No hernia.? Generalized body wall edema.? Abdominal Nodes:? No retroperitoneal or mesenteric adenopathy by size criteria.? Vessels:? Aorta and inferior vena cava are normal in size.? Heavy abdominal aortic atherosclerotic calcification. ? PELVIS: Pelvic Organs:? Enlarged prostate gland. Bladder:? Normal wall thickness. Pelvic Nodes:? No adenopathy. Miscellaneous: No inguinal hernias are seen. ? ? Generalized mild anasarca.? Small bilateral hydroceles. ? Bones:? Mild right hip degenerative change.? No suspicious bone lesions. ? ? IMPRESSION:? 1. Generalized anasarca/body wall edema suggestive of low protein state or 3rd spacing.? No ascites in the abdomen. ? 2. Contrast filled colon and otherwise normal stomach and bowel.? No explanation for distension and no acute process. ? 3. Cholelithiasis. ? 4. Right lobe liver hemangioma and partially imaged cystic lesions in the left hepatic lobe.? ? ? Dictated by: Vibha Baca M.D. on 06/07/2021 at 17:06 ? ? Approved by: Vibha Baca M.D. on 06/07/2021 at 17:14 ? MDM Narrative Medical decision making narrative: Differential diagnosis to consider but not limited to malnutrition versus failure to thrive versus ischemic colitis versus intestinal obstruction. I discussed the results of lab studies and imaging with patient. I also discussed the possibility of admission, and patient states that he is amenable to the idea of admission to discuss further options regarding home health, hospice care, etc.. I informed the patient that he was accepted for admission by Dr. Liang. Discharge Plan Departure Patient Disposition: Admitted as Observation Clinical Impression: Malnutrition, Rapid weight loss, Dehydration Admit Date/Time: 06/07/21 18:20 Admit Provider: Yohana Liang
--- NOTE | 2021-06-07 16:03 | DI.CT.S_ITS ---
PROCEDURE: CT ABDOMEN PELVIS W CON INDICATIONS: Abdominal pain, distension TECHNIQUE: After the administration of oral and IV contrast, axial sections were acquired from the lung bases to the pubic symphysis. Coronal and sagittal reformats were performed. For radiation dose reduction, the following was used: automated exposure control, adjustment of mA and/or kV according to patient size. COMPARISON: [facility], CT, CT ABDOMEN PELVIS W CON, 03/28/2021, 14:50. FINDINGS: Image quality: Excellent. Lung bases: Median sternotomy changes. Clear lung bases. Heart: Mild cardiomegaly with postoperative changes. ABDOMEN: Liver: Hypodensities in the right and left hepatic lobes, the largest in the right hepatic lobe measuring about 2.3 cm has morphology of a hemangioma. Gallbladder: Normal gallbladder wall thickness. Small calcified stone at the fundus. Biliary ducts: Nondilated. Pancreas: Mildly dilated smooth pancreatic duct. No pancreatic mass or peripancreatic inflammation. Spleen: Several granulomas through out the spleen. Adrenal Glands: No masses. Kidneys and Ureters: Normal enhancement. No hydronephrosis. No hydroureter. Stomach and Bowel: Stomach and small bowel loops are within normal limits. Oral contrast has moved to the colon which is redundant in the pelvis but is otherwise normal. Peritoneum: There is a paucity of intraperitoneal fat and moderate generalized edema throughout retroperitoneal fat. No free intraperitoneal air or visible free fluid. Ventral Wall: No hernia. Generalized body wall edema. Abdominal Nodes: No retroperitoneal or mesenteric adenopathy by size criteria. Vessels: Aorta and inferior vena cava are normal in size. Heavy abdominal aortic atherosclerotic calcification. PELVIS: Pelvic Organs: Enlarged prostate gland. Bladder: Normal wall thickness. Pelvic Nodes: No adenopathy. Miscellaneous: No inguinal hernias are seen. Generalized mild anasarca. Small bilateral hydroceles. Bones: Mild right hip degenerative change. No suspicious bone lesions. IMPRESSION: 1. Generalized anasarca/body wall edema suggestive of low protein state or 3rd spacing. No ascites in the abdomen. 2. Contrast filled colon and otherwise normal stomach and bowel. No explanation for distension and no acute process. 3. Cholelithiasis. 4. Right lobe liver hemangioma and partially imaged cystic lesions in the left hepatic lobe. Dictated by: Vibha Baca M.D. on 06/07/2021 at 17:06 Approved by: Vibha Baca M.D. on 06/07/2021 at 17:14
[2021-06-07 16:12] LABS: COVID19 -Nasal RAPID Negative (Negative)
[2021-06-07 19:10] LABS: Creatine Kinase < 20 U/L (55-170)
[2021-06-07 19:23] LABS: Troponin I < 0.012 ng/mL (0.01-0.034)
--- NOTE | 2021-06-07 21:02 | P.HP_ITS ---
History of Present Illness History of Present Illness Date Patient Seen: 06/07/21 Time Patient Seen: 21:02 Chief complaint: severly dehydrated - sent by [employer] [facility] Narrative: Kervin Dominguez is an 81-year-old male with history of Parkinson's disease who presented to the emergency department for an evaluation of anorexia and dehydration.? Patient's who is at bedside states that approximately 2 days ago the patient was evaluated by his neurologist and was believed to be severely dehydrated.?Review of Dr. Josephine Jett's (Neurologist) note stated a concern of the patient remaining in the same state of depression, no longer eating and haing lost a considerable amount of weight. , Brenda states that the patient was evaluated by [facility] today and was urged to come to the emergency department for the patient's condition.? Patient's states that the patient does not eat and drink regularly, stating that the patient does not have an appetite.? Patient states nothing tastes good to me and feels he is getting weaker and weaker. He will eat eggs in any form and sweet fresh fruits, but not much else including protein drinks. states he drinks very little fluid. Additionally, patient states that he has not experienced a bowel movement in at least the last 5 days and has been experiencing abdominal pain.?He does endorse feeling depressed and is in bed much of the day. Of note, patient's states that the patient's neurologist became concerned that the patient's abdomen did appear ?distended? during his most recent visit with the neurologist.? No fevers, chills, chest pain, cough, shortness of breath, nausea, vomiting, diarr hea, or dysuria. Dr. Jett's reduced his dose of mirtazapine and added dronabinol in hopes it would increase his appetite. Due to swallowing difficulties, patient underwent a barium swallow which was normal and recommended soft foods. Patient is a full code but declines placement of a feeding tube for nourishment. CT of the abdomen and pelvis noted: 1. generalized anasarca/body wall edema suggestive of low protein state or 3rd spacing w/no ascites in the abdomen, 2. Contrast filled colon and otherwise normal stomach and bowel.? No explanation for distension and no acute process. 3. Cholelithiasis. ?4. Right lobe liver hemangioma and partially imaged cystic lesions in the left hepatic lobe. Patient is afebrile, blood pressure 152/81, heart rate 67, oxygen saturation of 97% on room air he weighs 47.5 kg with a BMI of 17.3. WBC is unremarkable except for a mildly low platelet count of a 119, BUN is 24, is a normal A1c, liver enzymes within normal limits and COVID-19 PCR is negative. Patient History Medical History Anxiety Arthritis Bilateral thigh pain BPPV (benign paroxysmal positional vertigo) Brain TIA Chicken pox Chickenpox (Unknown) Chronic back pain (1965) Chronic constipation Chronic fatigue (2013) Colon polyps (2010) Coronary artery disease Depression (2014) Erectile dysfunction Foot pain (~2016) Hiatal hernia Hypercholesterolemia Hypertension Mumps Panic attacks Parkinson's disease (2014) Proximal muscle weakness Surgical History Anesthesia History of colonoscopy with polypectomy (11/19/17) History of colonoscopy with polypectomy (2009) History of tonsillectomy and adenoidectomy S/P CABG (coronary artery bypass graft) (06/2003) Status post coronary artery bypass graft Status post tonsillectomy and adenoidectomy Family & Social History Family History Father CAD (coronary artery disease) CVA (cerebral vascular accident) Hypertension Diabetes mellitus Heart attack Brain cancer Mother Hypertension Dementia Grandmother Diabetes mellitus Grandfather No problems noted. Brother No problems noted. Sister No problems noted. Social History: household members spouse Prior Living Arrangements House Safety & Behavioral: Feels Safe in Current Yes Environment Been Physically Hurt or No Threatened By a Person Suicidal Ideation Description None Suicide Plan Description No Plan Tobacco & Substance use: Smoking Status Never smoker alcohol intake former alcohol intake frequency 0-2 drinks per day Substance Use Type does not use Meds Home Medications and Allergies Home Medications Medication Instructions Recorded Confirmed Type carbidopa ER 50 mg-levodopa 200 mg 1 tab PO BEDTIME 90 Days tab 01/13/18 06/07/21 History tablet,extended release donepezil 10 mg tablet 10 mg PO 0900 90 Days tab 01/13/18 06/07/21 History cholecalciferol (vitamin D3) 50 100 mcg PO DAILY 12/02/19 06/07/21 History mcg (2,000 unit) capsule folic acid 400 mcg tablet 0.4 mg PO DAILY 12/02/19 06/07/21 History citalopram 20 mg tablet (Celexa) 20 mg PO QDAY #90 tab 01/25/21 06/07/21 Rx omeprazole 20 mg capsule,delayed 20 mg PO QAM 03/03/21 06/07/21 History release carbidopa 25 mg-levodopa 100 mg 1 tab PO QID 03/05/21 06/07/21 History tablet entacapone 200 mg tablet 100 mg PO BID tab 03/20/21 06/07/21 History docusate sodium 100 mg capsule 100 mg PO BID #60 cap 04/05/21 06/07/21 Rx pravastatin 20 mg tablet 20 mg PO BEDTIME #90 tab 04/20/21 06/07/21 Rx aspirin 81 mg chewable tablet 81 mg PO DAILY 06/07/21 06/07/21 History baclofen 10 mg tablet 10 mg PO TID 06/07/21 06/07/21 History clonazepam 0.5 mg tablet 1.5 mg PO BID 06/07/21 06/07/21 History clonazepam 2 mg tablet 2 mg PO BID PRN 06/07/21 06/07/21 History cyclobenzaprine 10 mg tablet 10 mg PO DAILY PRN 06/07/21 06/07/21 History dronabinol 2.5 mg capsule 2.5 mg PO TID 06/07/21 06/07/21 History ginkgo biloba 40 mg capsule 40 mg PO DAILY 06/07/21 06/07/21 History ipratropium bromide 21 mcg (0.03 2 spray INTRANASAL BID 06/07/21 06/07/21 History %) nasal spray lidocaine 4 % topical gel 1 applic TOPICAL QD-BID PRN 06/07/21 06/07/21 History melatonin 5 mg tablet 5 mg PO BEDTIME PRN 06/07/21 06/07/21 History mirtazapine 30 mg tablet 30 mg PO BEDTIME 06/07/21 06/07/21 History tamsulosin 0.4 mg capsule 0.4 mg PO DAILY 06/07/21 06/07/21 History vitamin E 400 unit capsule 400 unit PO DAILY 04/21/22 04/21/22 History Allergies Allergy/AdvReac Type Severity Reaction Status Date / Time haloperidol [From Haldol] AdvReac Severe dystonia Verified 06/07/21 21:16 metoclopramide AdvReac Severe dystonia Verified 06/07/21 21:16 Phenothiazines AdvReac Severe dystonia Verified 06/07/21 21:16 onion AdvReac Intermediate Heartburn Verified 06/07/21 21:16 Review of Systems Review of Systems ROS: Yes All systems reviewed with the patient and are negative except as otherwise documented Exam Vital Signs (past 8 hours): - 06/07/21 14:20 06/07/21 15:00 06/07/21 15:01 Temperature 97.8 F Pulse Rate 67 71 72 Respiratory Rate 18 22 Blood Pressure 97/54 L 119/60 Pulse Oximetry 97 97 98 06/07/21 15:30 06/07/21 16:00 06/07/21 16:30 Temperature Pulse Rate 62 62 72 Respiratory Rate 21 18 22 Blood Pressure 118/62 146/67 H 135/65 Pulse Oximetry 97 98 98 06/07/21 16:31 06/07/21 17:00 06/07/21 17:30 Temperature Pulse Rate 74 66 63 Respiratory Rate 19 21 18 Blood Pressure 136/63 116/57 L Pulse Oximetry 97 99 98 06/07/21 17:31 06/07/21 18:00 06/07/21 18:30 Temperature Pulse Rate 64 71 70 Respiratory Rate 19 26 H 21 Blood Pressure 142/62 H 127/64 139/67 Pulse Oximetry 98 97 96 Oxygen Delivery Method Room Air Narrative Exam Narrative: Gen: Alert, oriented, cachectic appearing 81 y.o. male, appears fatigued and pale HEENT: normocephalic, atraumatic, conjunctiva clear, sclera non-icteric, oral mucosa pink and moist Neck: supple, full ROM, no JVD, trachea is midline Resp: Lungs CTA, non-labored breathing CV: RRR, no murmur or rubs Abd: soft, non-tender, normoactive BTs Skin: thin and friable, no lesions or rashes, dry and intact Neuro: Alert and oriented X 4 w/no focal deficits. Speech clear and coherent. Extremities: appears weak, moves all 4 extremities, is ambulatory, negative Maame?s sign Psyche: depressed affect. Objective Labs Result Diagrams: 06/07/21 14:51 06/07/21 14:51 Labs: Laboratory Results - last 24 hr 06/07/21 06/07/21 06/07/21 14:51 14:51 14:51 WBC 4.9 RBC 4.54 Hgb 14.0 Hct 41.9 MCV 92.3 MCH 30.7 MCHC 33.3 RDW 15.3 H Plt Count 119 L Neut % (Auto) 73.8 Lymph % (Auto) 20.0 L [place] % (Auto) 5.3 Eos % (Auto) 0.0 L Baso % (Auto) 0.9 Neut # (Auto) 3600 Lymph # (Auto) 1000 L [place] # (Auto) 300 Eos # (Auto) 0 Baso # (Auto) 0 Sodium 141 Potassium 3.9 Chloride 104 Carbon Dioxide 32 BUN 24 H Creatinine 0.78 Estimated GFR > 60 BUN/Creatinine Ratio 30.8 H Glucose 101 Calcium 9.3 Total Bilirubin 0.9 AST 23 ALT < 4 Alkaline Phosphatase 45 Total Creatine Kinase < 20 L CK-MB (CK-2) TNP CK-MB (CK-2) Rel Index TNP Troponin I < 0.012 Total Protein 6.7 Albumin 4.1 Globulin 2.6 Albumin/Globulin Ratio 1.6 Lipase 156 SARS-CoV-2 (PCR) 06/07/21 15:49 WBC RBC Hgb Hct MCV MCH MCHC RDW Plt Count Neut % (Auto) Lymph % (Auto) [place] % (Auto) Eos % (Auto) Baso % (Auto) Neut # (Auto) Lymph # (Auto) [place] # (Auto) Eos # (Auto) Baso # (Auto) Sodium Potassium Chloride Carbon Dioxide BUN Creatinine Estimated GFR BUN/Creatinine Ratio Glucose Calcium Total Bilirubin AST ALT Alkaline Phosphatase Total Creatine Kinase CK-MB (CK-2) CK-MB (CK-2) Rel Index Troponin I Total Protein Albumin Globulin Albumin/Globulin Ratio Lipase SARS-CoV-2 (PCR) Negative Assessment & Plan Assessment & Plan narrative: Binu Doimnguez is admitted for severe protein calorie malnutrition likely associated with depression and worsening Parkinson's disease. Severe protein calorie malnutrition, acute * Weight loss of 40 lbs over the past 6 months with a BMI of 17 * Muscle wasting and weakness, anasarca associated with protein malnutrition seen on CT * Dietary consult Parkinson's disease, chronic, present on admission * continue home dose of carbidopa levodopa 25/100 1.5 tab po at 0600, 0900, 1300, and 1700 * continue home dose of carbidopa levodopa 50/200 1 tab po at bedtime * continue home dose of entacapone 200 mg 1/2 tab at 0900 and 2200 CAD, chronic * patient underwent a 3 vessel bypass approximately 20 years ago and subsequent stent placement in 3 vessels a year later * continue home medications including ASA 81 mg po daily, and pravastatin 20 mg po at bedtime Neurogenic bladder * Continue home dose of tamsulosin 0.4 mg po daily. Depression and anxiety, chronic * continue home dose of mirtazapine 30 mg p.o. at bedtime * Continue home dose of citalopram 20 mg po daily * Continue clonazapam 1 mg 1.5 tabs po bid * His psychiatric provider has recently left, have requested consult by Dr. 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 FEN: IV fluids: D5 ringers at 100 ml/hour X 2 bags, diet: general, anything he will eat, labs: CBC, C/BMP, liver enzymes, Mag, PT/INR Consultants Dr. Taylor, care and involvement in the patient?s care is appreciated. Dispo: hopeful discharge to home Code status: full code as discussed with the patient who identifies his spouse, Brenda as his surrogate and POA. [X] I have utilized all available immediate resources to obtain, update, or review of the patient's current medications COVID-19 COVID-19 status: Negative Result date/Date tested (Pos, Neg/Pending): 06/07/21 Quality VTE Deep Vein Thrombosis/Pulmonary Embolism Present on Admission: No MIPS - Admit I confirm the patient?s Advance Care Plan is present, Code status is documented, Surrogate decision maker is in patient?s record [If Yes, STOP here]: Yes MIPS - DC The patient has current or prior documentation of left ventricular ejection fraction (LVEF) less than 40%, or moderate or severely depressed left ventricular systolic function.: No
[2021-06-07 21:40] LABS: Hemoglobin A1C% w Est Avg Glu 5.6 % (4.0-6.0)
[2021-06-07] MEDS: BACLOFEN 10 MG TABLET PO (22:21)
[2021-06-07] MEDS: DOCUSATE 100 MG CAPSULE PO (22:21)
[2021-06-07] MEDS: MIRTAZAPINE 15 MG TABLET 30 MG PO (22:21)
[2021-06-07] MEDS: DEXTROSE 5%-LACTATED RINGERS 1,000 ML 100 ML IV (22:21)
[2021-06-07] MEDS: CARBIDOPA-LEVODOPA ER 50/200 TABLET 1 EACH PO (22:21)
[2021-06-07] MEDS: TAMSULOSIN 0.4 MG CAPSULE 0.8 MG PO (22:22)
[2021-06-07] MEDS: PRAVASTATIN 20 MG TABLET PO (22:32)
[2021-06-07] MEDS: clonazePAM 0.5 MG TABLET 1.5 MG PO (22:33)
[2021-06-07 22:44] LABS: TSH w/ Reflex to FT4 1.13 uIU/mL (0.47-4.68)
[2021-06-08] VITALS (8 sets, daily range): BP systolic 100–152; BP diastolic 55–89; PULSE 64–71; RESP 14–17; TEMP 36.4–36.9; O2SAT 94–99
[2021-06-08] MEDS: PANTOPRAZOLE DR 40 MG TABLET PO (06:20)
[2021-06-08] MEDS: CARBIDOPA-LEVODOPA 25/100 TABLET 1 EACH PO ×2 (06:20→10:40)
[2021-06-08 06:44] LABS: Add Manual Diff / Slide Review NO; Basophils Absolute Auto 0 /uL (0-100); Basophils Percent Auto 0.8 % (0-2); Eosinophils Absolute Auto 0 /uL (0-450); Hematocrit 36.8 % (41-53); Hemoglobin 12.4 g/dL (13.5-17.5); Lymphocytes Absolute Auto 1500 /uL (1100-4500); Lymphocytes Percent Auto 40.4 % (25-40); Mean Corpuscular HGB Conc 33.7 % (30-36); Monocytes Absolute Auto 300 /uL (0-900); Monocytes Percent Auto 8.2 % (3-14); Neutrophils Absolute Auto 1900 /uL (1500-7000); Neutrophils Percent Auto 49.6 % (50-75); Platelet Count 100 X10^3/uL (150-400); Red Blood Cell Count 4.01 X10^6/uL (4.5-5.9); Red Cell Distribution Width 14.9 % (11.6-14.8); White Blood Cell Count 3.8 X10^3/uL (4.5-11.0)
[2021-06-08 06:54] LABS: Albumin 3.1 g/dL (3.5-5.0); Albumin Globulin Ratio 1.3 (1.0-2.8); Alkaline Phosphatase 31 U/L (38-126); Aspartate Aminotransferase 19 IU/L (17-59); Bilirubin Total 0.7 mg/dL (0.2-1.3); Bilirubin Unconjugated 0.5 mg/dL (0.0-1.1); Blood Urea Nitrogen 18 mg/dL (9-20); Calcium 8.6 mg/dL (8.4-10.2); Carbon Dioxide 34 mmol/L (22-32); Chloride 105 mmol/L (98-107); Estimated Glomerular Filt Rate > 60 mL/min (>60); Globulin 2.3 g/dL (1.7-4.1); Glucose 137 mg/dL (80-110); HEMOLYSIS < 15 (0-50); Potassium 3.5 mmol/L (3.4-5.1); Sodium 137 mmol/L (137-145); Total Protein 5.4 g/dL (6.3-8.2)
[2021-06-08 07:00] LABS: Alanine Aminotransferase < 4 IU/L (<50)
[2021-06-08] MEDS: DEXTROSE 5%-LACTATED RINGERS 1,000 ML 100 ML IV (09:00)
[2021-06-08] MEDS: TAMSULOSIN 0.4 MG CAPSULE PO (09:22)
[2021-06-08] MEDS: CITALOPRAM 10 MG TABLET 20 MG PO (09:22)
[2021-06-08] MEDS: ENOXAPARIN 40 MG/0.4 ML SYRINGE SUBCUT (09:23)
[2021-06-08] MEDS: ASPIRIN 81 MG CHEW TAB PO (09:23)
[2021-06-08] MEDS: clonazePAM 0.5 MG TABLET 1.5 MG PO ×2 (09:23→21:22)
[2021-06-08] MEDS: POTASSIUM CHLORIDE 20 MEQ TAB 40 MEQ PO (09:23)
[2021-06-08] MEDS: DOCUSATE 100 MG CAPSULE PO ×2 (09:23→21:21)
[2021-06-08] MEDS: DONEPEZIL 5 MG TABLET 10 MG PO (09:30)
[2021-06-08] MEDS: BACLOFEN 10 MG TABLET PO ×3 (09:31→17:38)
[2021-06-08] MEDS: ENTACAPONE 200 MG TABLET 100 MG PO ×2 (09:34→21:22)
[2021-06-08] MEDS: FOLIC ACID 0.4 MG TABLET PO (09:34)
--- NOTE | 2021-06-08 11:02 | PT.IIE ---
Current Diagnoses Unspecified severe protein-calorie malnutrition (06/07/21) Unspecified protein-calorie malnutrition (06/07/21) Surgical History (Last Reviewed 06/08/21 @ 01:43 by BULMARO English) Anesthesia Status post coronary artery bypass graft Status post tonsillectomy and adenoidectomy Medical History (Last Reviewed 06/08/21 @ 01:43 by BULMARO English) Anxiety Arthritis Bilateral thigh pain BPPV (benign paroxysmal positional vertigo) Brain TIA Chicken pox Chickenpox (Unknown) Chronic back pain (1965) Chronic constipation Chronic fatigue (2014) Colon polyps (2010) Coronary artery disease Depression (2015) Erectile dysfunction Foot pain (~2016) Hiatal hernia Hypercholesterolemia Hypertension Mumps Panic attacks Parkinson's disease (2014) Proximal muscle weakness Physical Therapy Inpatient Evaluation/Re-Eval M1 PT/OT-IP Prior Functional Status Start: 06/08/21 12:44 Freq: NEEDED Status: Active Protocol: Document 06/08/21 11:02 AB (Rec: 06/08/21 13:05 [email or web address]) Medical Review Prior Functional Status Medical History Reviewed Yes Communication able to make needs known Mobility and Gait pt stated that his spouse assists him with transfers/ ambulation using FWW and also with ADLs; pt uses a 4WW for ambulation with his spouse assisting him when he needs to get up and spends mostly on his recliner during the day Social History Household Members spouse Living Arrangements House Number of Floors (Floors) Two Floors Number of Stairs To Enter/Railing? pt stays on main level of the house 1 step to enter using 4WW Home Environment High Toilet,Walk in Shower,Tub /Shower Home Equipment Four Wheel Walker,Shower Seat with Backrest,Hand Held Shower ,Grab Bars Near Toilet,Grab Bars In Shower Additional Social History Comment pt has a L bed rail M2 PT-IP Current Condition Start: 06/08/21 12:44 Freq: NEEDED Status: Active Protocol: Document 06/08/21 11:02 AB (Rec: 06/08/21 13:05 AB [email or web address]) Physical Therapy Current Condition Current Condition Evaluation Date 06/08/21 Treatment Diagnosis malnutrition; PD; difficulty in walking Onset Date 06/07/21 M3 PT-IP Subjective Start: 04/22/22 12:44 Freq: NEEDED Status: Active Protocol: Document 06/08/21 11:02 AB (Rec: 06/08/21 13:05 AB [email or web address]) Subjective Physical Therapy Visit Type Type Initial Evaluation Visit Start Time 11:02 Visit Stop Time 11:32 Total Visit Minutes 30 Number of TUFTING MACHINE FIXER Visits 0 Physical Therapy Visit Comments Patient Comments agreed to do PT but needs motivation to complete tasks M4 PT-IP Mobility and Gait Start: 06/08/21 12:44 Freq: NEEDED Status: Active Protocol: Document 06/08/21 11:02 AB (Rec: 06/08/21 13:05 AB [email or web address]) PT-Bed Mobility Assessment Supine to Sit Supine to Sit Maximum Assistance,Head of Bed Elevated PT-Transfer Assessment Sit to and From Stand Sit to and from Stand Moderate Assistance,2 Person Assistance,Use of Upper Extremities Equipment Transfer Assistive Device Gait Belt,Front Wheeled Walker Orthotic/Prosthetic Devices or Brace: No Transfers Transfer Destination Chair Transfer Technique Stand Step Pivot Transfer Ability Level of Assist Moderate Assistance,2 Person Assistance,Use of Upper Extremities Comments Mobility Comments pt supine in bed. noted lateral neck tightness to the R and resting tremors on BUE. pt initially stated that he cannot move and cannot stand. encouraged pt to try to move with PT's assistance and agreed. completed supine to sit HOB elevated max A and max cues. max A for positioning and scooting to EOB and able to sit CGA on EOB after positioning. c/o neck muscles being tired. pt hesistant to do more activities and stated that is all he can do. motivated pt again to stand and agreed. sit to stand mod A x 2 and step transfer to chair using FWW mod A x 2 and max cues. unable to do ambulation but agreed to sit up on chair for lunch. positioned on chair. call light and table placed within reach. PT-Balance Assessment Sitting Balance and Reactions Static Sitting Balance Ability Fair Dynamic Sitting Balance Ability Poor Standing Balance and Reactions Static Standing Balance Ability Poor Dynamic Standing Balance Ability Poor Device Used FWW M5 PT-IP Objective Assessments Start: 06/08/21 12:44 Freq: NEEDED Status: Active Protocol: Document 06/08/21 11:02 AB (Rec: 06/08/21 13:05 AB [email or web address]) Orientation Orientation/Cognition Level of Alertness Alert Orientation Name Safety Awareness Decreased Safety Awareness Gross Range of Motion Lower Extremity ROM Assessment Within Functional Limits Strength Lower Extremity Strength Hip 4-/5 Knee 3+/5 Muscle Tone Muscle Tone WNL No Muscle Tone Location Bilateral Upper Extremity Manifistation of Tone Resting Tremors M6 PT-IP Treatment Start: 06/08/21 12:44 Freq: NEEDED Status: Active Protocol: Document 06/08/21 11:02 AB (Rec: 06/08/21 13:05 AB [email or web address]) Physical Therapy Treatment Education Education Provided Safety M7 PT-IP Assessment and Plan Start: 06/08/21 12:44 Freq: NEEDED Status: Active Protocol: Document 06/08/21 11:02 AB (Rec: 06/08/21 13:05 AB [email or web address]) PT Summary Assessment and Plan Potential Rehabilitation Potential Fair Status of Condition at Evaluation Evolving Summary Impairments Pain,ROM,Strength,Balance, Coordination,Sensation,Tone, Cognition,Bed Mobility, Transfers,Gait,Activity Tolerance Assessment Summary pt requiring mod A x 2 for transfers and requires motivation to participate. pt has decrease activity tolerance affecting mobility. will conduct caregiver training when appropriate but at this time, pt will require SNF rehab to improve overall strength and functional mobility. will continue to assess progress. Goals Bed Mobility Goal Standby Assistance Transfer Goal Contact Guard Assistance,Front Wheeled Walker Gait Goal Contact Guard Assistance,Front Wheel Walker Gait Distance 100 Other Goals improve ambulation using 4WW CGA 150 ft up/down 1 step using FWW/4WW CGA Days to Meet Goals 10 Frequency of Treatment Frequency Of Treatment Once a Day Treatment Plan Physical Therapy Treatment Plan Bed Mobility Training,Transfer Training,Gait Training, Therapeutic Exercise,Balance Retraining,Discharge Planning, Hot or Cold Pack,Neuromuscular Re-ed,Coordination Retraining ,Manual Therapy Precautions Other Precautions falls Recommendations To Nursing Amount of Assist Needed 2 Person Assist Discharge Recommendations PT Discharge Recommendations SNF Rehab Equipment Needed for Home Before FWW if pt goes home and not Discharge safe with 4WW Transportation Needs at Discharge Wheelchair/Cabulance
[2021-06-08] MEDS: CARBIDOPA-LEVODOPA 25/100 TABLET 2 EACH PO ×2 (14:13→17:29)
--- NOTE | 2021-06-08 15:55 | OT.IPNOTE ---
Spoke to pt and pt's son regarding prior level of care, goals, and home set-up. Pt states not wanting to get up at this time as too tired from sitting up before and wanting to do OT eval tomorrow. No charge.
--- NOTE | 2021-06-08 16:53 | DIET.CONS ---
Dietary Consultation Note Admission Date: 06/07/2021 18:20 Assessment: 81 y/o M with PMH of Parkinson's disease admitted for evaluation of anorexia and dehydration. Binu reports poor appetite for the last couple years. States food often does not taste right or feel good going down. Recent barium swallow indicates rec for dysphagia mechanical soft diet and thin liquids. Reports some foods that he can eat include: eggs, fruit, yogurt, chicken, fish (not salmon). Does not like ensure. Open to trying a fruit protein shake. Reports eating 2-3 x per day but usually only 3-6 bites at a meal. tries to help with food preferences and intake. Not interested in nutrition support. Nutrition focused physical exam indicates severe muscle and fat loss in temporal, clavicle, and shoulder regions. Wt hx: 06/07/21: 47.5kg 03/05/21: 59.6kg (-12.1kg or 20%) severe 01/2021: 60.441kg (-12.9kg or 21%) severe Ht: 165.1 cm Wt: 47.5 kg BMI: 17.3 low Last BM: 06/02/21 (06/07/21 20:22) MNA: 7 John Score: 14 Diet: 06/07/21 Breakfast General (Regular) Diet Diet Modifications: soft, likes eggs with seasoning, thin liquids 06/08/21 Dinner Dysphagia Diet Diet Modifications: Liquid consistency: Normal/Thin Food texture: Dysphagia Mechanical Soft Nutrition Percent Meal Consumed 50% 06/08/21 10:08 Labs: RBC 4.01 X10^6/uL (4.5-5.9) L 06/08/21 06:13 Hgb 12.4 g/dL (13.5-17.5) L 06/08/21 06:13 Hct 36.8 % (41-53) L 06/08/21 06:13 Creatinine 0.60 mg/dL (0.66-1.25) L 06/08/21 06:13 Hemoglobin A1c 5.6 % (4.0-6.0) 06/07/21 14:51 Nutrition Diagnosis: Severe PCM r/t loss of appetite aeb pt report, severe weight loss >7.5% in 3 months and >20% in 4 months, physical signs of malnutrition, low BMI, and poor PO. Interventions: 1. Reviewed preferred foods with kitchen 2. Trial fruit protein shakes BID EER: [id number] kcals (35-40kcals/kg) 71-95g PRO (1.5-2g/kg) Monitoring/Evaluations: PO, weights, shake tolerance Electronically Signed by: Brenda Rae 06/08/21 16:53 Clinical Dietitian [address] [id number]
--- NOTE | 2021-06-08 18:42 | P.PN_ITS ---
Subjective Subjective Date Patient Seen: 06/08/21 Time Patient Seen: 18:42 Interval history: 81 year old male with PMH of parkinsons admitted with severe malnutrition and weight loss and weakness. Discussion with family today, goals are to see if there can be improvement with medications. Patient endorses depression. Denies specific pain, nausea, or vomiting. Exam Vital Signs (past 8 hours): - 06/08/21 16:03 06/08/21 18:00 Temperature 97.6 F 97.6 F Pulse Rate 64 64 Respiratory Rate 15 15 Blood Pressure 100/55 L 100/55 L Pulse Oximetry 98 98 Oxygen Delivery Method Room Air Oxygen Flow Rate 0 Narrative Exam Narrative: Gen: Alert, oriented, malnourished appearing 81 y.o. male, appears fatigued and pale HEENT: normocephalic, atraumatic, conjunctiva clear, sclera non-icteric, oral mucosa pink and moist. Slight masked facies. Neck: supple, full ROM, no JVD, trachea is midline Resp: Lungs CTA, non-labored breathing CV: RRR, no murmur or rubs Abd: soft, non-tender, normoactive BTs Skin: thin and friable, no lesions or rashes, dry and intact Neuro: Alert and oriented X 4 w/no focal deficits. Speech clear and coherent. Intermittent tremor is noted. Extremities: diffusely weak, no edema or jont effusions. Psyche: depressed / flat affect. but appropriate behavior and calm and cooperative. Objective Labs Result Diagrams: 06/08/21 06:13 06/08/21 06:13 Labs: Laboratory Results - last 24 hr 06/07/21 06/07/21 06/07/21 14:51 14:51 14:51 WBC RBC Hgb Hct MCV MCH MCHC RDW Plt Count Neut % (Auto) Lymph % (Auto) Dane % (Auto) Eos % (Auto) Baso % (Auto) Neut # (Auto) Lymph # (Auto) Dane # (Auto) Eos # (Auto) Baso # (Auto) Sodium Potassium Chloride Carbon Dioxide BUN Creatinine Estimated GFR BUN/Creatinine Ratio Glucose Hemoglobin A1c 5.6 Calcium Magnesium Total Bilirubin Conjugated Bilirubin Unconjugated Bilirubin AST ALT Alkaline Phosphatase Total Creatine Kinase < 20 L CK-MB (CK-2) TNP CK-MB (CK-2) Rel Index TNP Troponin I < 0.012 Total Protein Albumin Globulin Albumin/Globulin Ratio TSH 1.13 06/08/21 06/08/21 06:13 06:13 WBC 3.8 L RBC 4.01 L Hgb 12.4 L Hct 36.8 L MCV 92.0 MCH 31.0 MCHC 33.7 RDW 14.9 H Plt Count 100 L Neut % (Auto) 49.6 L D Lymph % (Auto) 40.4 H D Dane % (Auto) 8.2 Eos % (Auto) 1.0 L Baso % (Auto) 0.8 Neut # (Auto) 1900 Lymph # (Auto) 1500 Dane # (Auto) 300 Eos # (Auto) 0 Baso # (Auto) 0 Sodium 137 Potassium 3.5 Chloride 105 Carbon Dioxide 34 H BUN 18 Creatinine 0.60 L Estimated GFR > 60 BUN/Creatinine Ratio 30.0 H Glucose 137 H Hemoglobin A1c Calcium 8.6 Magnesium 2.0 Total Bilirubin 0.7 Conjugated Bilirubin 0.0 Unconjugated Bilirubin 0.5 AST 19 ALT < 4 Alkaline Phosphatase 31 L Total Creatine Kinase CK-MB (CK-2) CK-MB (CK-2) Rel Index Troponin I Total Protein 5.4 L Albumin 3.1 L Globulin 2.3 Albumin/Globulin Ratio 1.3 [facility] Medical History Anxiety Arthritis Bilateral thigh pain BPPV (benign paroxysmal positional vertigo) Brain TIA Chicken pox Chickenpox (Unknown) Chronic back pain (1965) Chronic constipation Chronic fatigue (2013) Colon polyps (2009) Coronary artery disease Depression (2014) Erectile dysfunction Foot pain (~2017) Hiatal hernia Hypercholesterolemia Hypertension Mumps Panic attacks Parkinson's disease (2015) Proximal muscle weakness Surgical History Anesthesia History of colonoscopy with polypectomy (11/19/17) History of colonoscopy with polypectomy (2009) History of tonsillectomy and adenoidectomy S/P CABG (coronary artery bypass graft) (06/2003) Status post coronary artery bypass graft Status post tonsillectomy and adenoidectomy Family History Father CAD (coronary artery disease) CVA (cerebral vascular accident) Hypertension Diabetes mellitus Heart attack Brain cancer Mother Hypertension Dementia Grandmother Diabetes mellitus Grandfather No problems noted. Brother No problems noted. Sister No problems noted. Social History household members: spouse Smoking Status: Never smoker alcohol intake: former Assessment & Plan Assessment & Plan narrative: Binu Dominguez is admitted for severe protein calorie malnutrition likely associat ed with depression and worsening Parkinson's disease. Severe protein calorie malnutrition, acute * Weight loss of 40 lbs over the past 6 months with a BMI of 17 * Muscle wasting and weakness, anasarca associated with protein malnutrition seen on CT * Dietary consult * will increase home citalopram to see if benefit. Parkinson's disease, chronic, present on admission * continue home dose of carbidopa levodopa 25/100 1.5 tab po at 0600, 0900, 1300, and 1700 * continue home dose of carbidopa levodopa 50/200 1 tab po at bedtime * continue home dose of entacapone 200 mg 1/2 tab? at 0900 and 2200 CAD, chronic * patient underwent a 3 vessel bypass approximately 20 years ago and subsequent stent placement in 3 vessels a year later * continue home medications including ASA 81 mg po daily, and pravastatin 20 mg po at bedtime Neurogenic bladder * Continue home dose of tamsulosin 0.4 mg po daily. Depression and anxiety, chronic * continue home dose of mirtazapine 30 mg p.o. at bedtime * Continue home dose of citalopram 20 mg po daily * Continue clonazapam 1 mg 1.5 tabs po bid * no need for current inpatient psychiatry assistance, would recommend outpatient follow up as his provider has recently left. 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 Patient is admitted to the inpatient service due to the severity of disease, risks of further disease progression and this stay is expected to exceed 2 midnights. Dispo: required significant assistance, consider residential or home health (? with hospice at this time). Code status: full code as discussed with the patient who identifies his spouse, Brenda as? his surrogate and POA. [X] I have utilized all available immediate resources to obtain, update, or review of the patient's current medications Time Spent With Patient Critical Care time: I spent a total of [] minutes of critical care time on this patient's care today; this time is exclusive of procedural time. Quality VTE Deep Vein Thrombosis/Pulmonary Embolism Present on Admission: No
[2021-06-08 21:19] LABS: Add Manual Diff / Slide Review NO; Basophils Absolute Auto 0 /uL (0-100); Basophils Percent Auto 0.8 % (0-2); Eosinophils Absolute Auto 0 /uL (0-450); Eosinophils Percent Auto 0.4 % (2-4); Hematocrit 34.1 % (41-53); Hemoglobin 11.6 g/dL (13.5-17.5); Lymphocytes Absolute Auto 1300 /uL (1100-4500); Mean Corpuscular HGB Conc 33.9 % (30-36); Mean Corpuscular Volume 91.5 fL (80-100); Monocytes Absolute Auto 300 /uL (0-900); Monocytes Percent Auto 7.6 % (3-14); Neutrophils Absolute Auto 2100 /uL (1500-7000); Neutrophils Percent Auto 56.2 % (50-75); Platelet Count 99 X10^3/uL (150-400); Red Blood Cell Count 3.73 X10^6/uL (4.5-5.9); Red Cell Distribution Width 14.5 % (11.6-14.8); White Blood Cell Count 3.7 X10^3/uL (4.5-11.0)
[2021-06-08] MEDS: PRAVASTATIN 20 MG TABLET PO (21:21)
[2021-06-08] MEDS: CARBIDOPA-LEVODOPA ER 50/200 TABLET 1 EACH PO (21:21)
[2021-06-08] MEDS: MIRTAZAPINE 15 MG TABLET 30 MG PO (21:25)
[2021-06-09] VITALS (7 sets, daily range): BP systolic 107–144; BP diastolic 65–80; PULSE 63–75; RESP 16–18; TEMP 36.1–36.5; O2SAT 94–98
[2021-06-09 06:02] LABS: Add Manual Diff / Slide Review NO; Basophils Absolute Auto 0 /uL (0-100); Eosinophils Absolute Auto 0 /uL (0-450); Eosinophils Percent Auto 0.8 % (2-4); Hemoglobin 11.8 g/dL (13.5-17.5); Lymphocytes Absolute Auto 1400 /uL (1100-4500); Lymphocytes Percent Auto 36.4 % (25-40); Mean Corpuscular HGB Conc 33.7 % (30-36); Monocytes Absolute Auto 300 /uL (0-900); Monocytes Percent Auto 6.8 % (3-14); Neutrophils Absolute Auto 2100 /uL (1500-7000); Platelet Count 97 X10^3/uL (150-400); Red Blood Cell Count 3.81 X10^6/uL (4.5-5.9); Red Cell Distribution Width 14.7 % (11.6-14.8); White Blood Cell Count 3.8 X10^3/uL (4.5-11.0)
[2021-06-09] MEDS: CARBIDOPA-LEVODOPA 25/100 TABLET 1 EACH PO ×2 (06:09→10:01)
[2021-06-09] MEDS: PANTOPRAZOLE DR 40 MG TABLET PO (06:10)
[2021-06-09 06:24] LABS: Albumin 2.9 g/dL (3.5-5.0); Albumin Globulin Ratio 1.3 (1.0-2.8); Alkaline Phosphatase 30 U/L (38-126); Aspartate Aminotransferase 19 IU/L (17-59); BUN Creatinine Ratio 18.3 (6-22); Bilirubin Total 0.8 mg/dL (0.2-1.3); Bilirubin Unconjugated 0.5 mg/dL (0.0-1.1); Blood Urea Nitrogen 11 mg/dL (9-20); Calcium 8.6 mg/dL (8.4-10.2); Carbon Dioxide 33 mmol/L (22-32); Chloride 104 mmol/L (98-107); Estimated Glomerular Filt Rate > 60 mL/min (>60); Globulin 2.2 g/dL (1.7-4.1); Glucose 86 mg/dL (80-110); HEMOLYSIS < 15 (0-50); Magnesium 1.9 mg/dL (1.6-2.3); Potassium 3.6 mmol/L (3.4-5.1); Sodium 139 mmol/L (137-145); Total Protein 5.1 g/dL (6.3-8.2)
[2021-06-09 06:37] LABS: Alanine Aminotransferase < 4 IU/L (<50)
[2021-06-09] MEDS: CITALOPRAM 10 MG TABLET 20 MG PO (08:46)
[2021-06-09] MEDS: TAMSULOSIN 0.4 MG CAPSULE PO (08:46)
[2021-06-09] MEDS: ASPIRIN 81 MG CHEW TAB PO (08:46)
[2021-06-09] MEDS: DOCUSATE 100 MG CAPSULE PO ×2 (08:46→20:35)
[2021-06-09] MEDS: ENOXAPARIN 40 MG/0.4 ML SYRINGE SUBCUT (08:47)
[2021-06-09] MEDS: clonazePAM 0.5 MG TABLET 1.5 MG PO ×2 (08:47→20:35)
--- NOTE | 2021-06-09 09:00 | PT.IPTN ---
Current Diagnoses Unspecified severe protein-calorie malnutrition (06/07/21) Unspecified protein-calorie malnutrition (06/07/21) Physical Therapy Treatment Note M2 PT-IP Current Condition Start: 06/08/21 12:44 Freq: NEEDED Status: Active Protocol: Document 06/08/21 11:02 AB (Rec: 06/08/21 13:05 AB [id number]) Physical Therapy Current Condition Current Condition Evaluation Date 06/08/21 Treatment Diagnosis malnutrition; PD; difficulty in walking Onset Date 06/07/21 M3 PT-IP Subjective Start: 06/08/21 12:44 Freq: NEEDED Status: Active Protocol: Document 06/09/21 09:00 AB (Rec: 06/09/21 12:52 AB [id number]) Subjective Physical Therapy Visit Type Type Treatment Note Visit Start Time 09:00 Visit Stop Time 09:31 Total Visit Minutes 31 Number of SECURITY INCIDENT RESPONSE SPECIALIST Visits 0 Physical Therapy Visit Comments Patient Comments agreeable to do PT M4 PT-IP Mobility and Gait Start: 06/08/21 12:44 Freq: NEEDED Status: Active Protocol: Document 06/09/21 09:00 AB (Rec: 06/09/21 12:52 AB [id number]) PT-Bed Mobility Assessment Supine to Sit Supine to Sit Maximum Assistance PT-Transfer Assessment Sit to and From Stand Sit to and from Stand Minimal Assistance,Moderate Assistance,1 Person Assistance ,Use of Upper Extremities Equipment Transfer Assistive Device Gait Belt,Front Wheeled Walker Orthotic/Prosthetic Devices or Brace: No Transfers Transfer Destination Chair Transfer Technique ambulated Transfer Ability Level of Assist Minimal Assistance,Moderate Assistance Comments Mobility Comments pt supine in bed and looking for his spouse and son and seems to be more confused today than yesterday but is more alert. spouse arrived prior to mobility. pt completed supine to sit max A and max cues. able to sit on EOB SBA. completed sit to stand min to mod A and cues and ambulated in room using FWW min to mod A ~ 30 ft. pt agreed to sit on the chair. positioned on the chair. call light and table placed within reach. Gait Assessment Gait Gait Assistance Required: Minimum Assistance,Moderate Assistance Distance (Feet) 30 Able to Maintain Weight Bearing Status Yes During Gait Assistive Devices Assistive Device Gait Belt,Front Wheeled Walker Orthotic/Prosthetic Devices or Brace: No Gait Deviations General Gait Pattern Decreased Stride Length, Decreased Feet Clearance Factors Limiting Gait Function Factors Limiting Gait Function Decreased Activity Tolerance, Decreased Strength,Poor Balance,Poor Safety Awareness M5 PT-IP Objective Assessments Start: 06/08/21 12:44 Freq: NEEDED Status: Active Protocol: Document 06/08/21 11:02 AB (Rec: 06/08/21 13:05 AB [email or web address]) Orientation Orientation/Cognition Level of Alertness Alert Orientation Name Safety Awareness Decreased Safety Awareness Gross Range of Motion Lower Extremity ROM Assessment Within Functional Limits Strength Lower Extremity Strength Hip 4-/5 Knee 3+/5 Muscle Tone Muscle Tone WNL No Muscle Tone Location Bilateral Upper Extremity Manifistation of Tone Resting Tremors M6 PT-IP Treatment Start: 06/08/21 12:44 Freq: NEEDED Status: Active Protocol: Document 06/09/21 09:00 AB (Rec: 06/09/21 12:52 AB [email or web address]) Physical Therapy Treatment Education Education Provided Safety M7 PT-IP Assessment and Plan Start: 06/08/21 12:44 Freq: NEEDED Status: Active Protocol: Document 06/09/21 09:00 AB (Rec: 06/09/21 12:52 AB [email or web address]) PT Summary Assessment and Plan Potential Rehabilitation Potential Fair Summary Impairments Pain,ROM,Strength,Balance, Coordination,Sensation,Tone, Cognition,Bed Mobility, Transfers,Gait,Activity Tolerance Progress Towards Goals Slow Progress due to Medical Issues,Slow Progress due to Activity Tolerance Assessment Summary pt requiring max A for bed mobility, min to mod A for transfers and ambulation using FWW. d/c plan depending on progress but at this time will require SNF rehab. Goals Bed Mobility Goal Standby Assistance Transfer Goal Contact Guard Assistance,Front Wheeled Walker Gait Goal Contact Guard Assistance,Front Wheel Walker Gait Distance 100 Other Goals improve ambulation using 4WW CGA 150 ft up/down 1 step using FWW/4WW CGA Days to Meet Goals 10 Frequency of Treatment Frequency Of Treatment Once a Day Treatment Plan Physical Therapy Treatment Plan Bed Mobility Training,Transfer Training,Gait Training, Therapeutic Exercise,Balance Retraining,Discharge Planning, Hot or Cold Pack,Neuromuscular Re-ed,Coordination Retraining ,Manual Therapy Precautions Other Precautions falls Recommendations To Nursing Amount of Assist Needed 1 Person Assist Discharge Recommendations Equipment Needed for Home Before FWW if pt goes home and not Discharge safe with 4WW Transportation Needs at Discharge Wheelchair/Cabulance
[2021-06-09] MEDS: BACLOFEN 10 MG TABLET PO ×3 (10:00→16:18)
[2021-06-09] MEDS: FOLIC ACID 0.4 MG TABLET PO (10:01)
[2021-06-09] MEDS: ENTACAPONE 200 MG TABLET 100 MG PO ×2 (10:01→20:35)
[2021-06-09] MEDS: DONEPEZIL 5 MG TABLET 10 MG PO (10:04)
--- NOTE | 2021-06-09 11:01 | CM.IDA ---
Initial DCP Assessment Note Pt is an 81 yo male, resident of [place],presents from home w/sever malnutrition, depression/anxiety, mild dementia w/failure to thrive in the setting of Parkinson's disease PCP: Raoul Salguero Payer: [employer]/Amanda Reviewed chart, pt discussed in multidisciplinary rounds this morning. Patient would benefit from SNF upon DC. Dr Jamil does not anticipate that patient will need an inpatient psych eval, outpatient psych f/u is currently recommended. In addition, Dr Jamil has discussed medical POC options and patient/family are not considering hospice at this time, would like SNF rehab upon DC Met w/patient and spouse, patient very soft spoken, drowsy, asks this RECOVERY RN to do all planning w/his , brenda. Brenda explains she provides full assist at home and asks friends to come in when she needs to leave their home. Spouse requests [facility] upon DC; states patient would like to return home but she and patient have agreed patient requires SNF for rehab at this time and hopeful patient will improve with time, medication and therapies Spoke w/July at [facility] who is reviewing, July can also look up C19 Vaccination status. spouse states patient is triple vaccinated but does not have Vax card today Awaiting f/u from July from [facility] re acceptance and bed availability? No b/u choice at this time, need to discuss w/patient/family further if [facility] declines. PASRR completed in anticipation of SNF PRATEEK Piña Discharge Planning/Care Management CM Discharge Assessment Start: 06/09/21 10:59 Freq: Status: Active Protocol: Document 06/09/21 11:00 LEONARDO (Rec: 06/09/21 11:01 LEONARDO [id number]) Discharge Planning Assessment Assigned Pumper Hand PRATEEK Hopkins DPOA/Assigned Designee Name Brenda Dominguez, spouse Contact Information [phone] Advance Directives? Yes Advance Directives on File Yes History Provided By Patient,Family Member,Medical Record Prior Living Arrangements House Household Members spouse Type of transporation used prior to Relies on Others admit Independent with ADL's No Is patient alert and oriented? Yes Needs Assistance With Bathing,Grooming,Meal Prep, Toileting,Managing Medications ,Home Chores / Shopping Patient/Family Preference [facility] Facility Barriers to Discharge Yes Comment Severely debilitated at this time, wanting SNF, does not want Hospice Discharge Plan [facility] Facility Transportation Arrangement Likely w/c Referrals Initiated [facility] SNF/HH Preference [facility]
--- NOTE | 2021-06-09 12:32 | OT.IP.EVAL ---
Current Diagnoses Unspecified severe protein-calorie malnutrition (06/07/21) Unspecified protein-calorie malnutrition (06/07/21) Past Medical History (Last Reviewed 06/08/21 @ 01:43 by BULMARO English) Anxiety Arthritis Bilateral thigh pain BPPV (benign paroxysmal positional vertigo) Brain TIA Chicken pox Chickenpox (Unknown) Chronic back pain (1965) Chronic constipation Chronic fatigue (2014) Colon polyps (2010) Coronary artery disease Depression (2015) Erectile dysfunction Foot pain (~2017) Hiatal hernia History of colonoscopy with polypectomy (11/19/17) History of colonoscopy with polypectomy (2009) History of tonsillectomy and adenoidectomy Hypercholesterolemia Hypertension Mumps Panic attacks Parkinson's disease (2014) Proximal muscle weakness S/P CABG (coronary artery bypass graft) (06/2003) Surgical History (Last Reviewed 06/08/21 @ 01:43 by BULMARO English) Anesthesia History of colonoscopy with polypectomy (11/19/17) History of colonoscopy with polypectomy (2009) History of tonsillectomy and adenoidectomy S/P CABG (coronary artery bypass graft) (06/2003) Status post coronary artery bypass graft Status post tonsillectomy and adenoidectomy Occupational Therapy Inpatient Evaluation/Re-Eval M1 PT/OT-IP Prior Functional Status Start: 06/08/21 12:44 Freq: NEEDED Status: Active Protocol: Document 06/09/21 13:10 [facility] (Rec: 06/09/21 15:15 [facility] [id number]) Medical Review Prior Functional Status Medical History Reviewed Yes Communication able to make needs known Mobility and Gait pt stated that his spouse assists him with transfers/ ambulation using FWW and also with ADLs; pt uses a 4WW for ambulation with his spouse assisting him when he needs to get up and spends mostly on his recliner during the day Activities of Daily Living and IADL's Pt states lately has been having to assist pt for feeding and all other ADL needs at this time. Social History Household Members spouse Living Arrangements House Number of Floors (Floors) Two Floors Number of Stairs To Enter/Railing? pt stays on main level of the house 1 step to enter using 4WW Home Environment High Toilet,Walk in Shower,Tub /Shower Home Equipment Four Wheel Walker,Shower Seat with Backrest,Hand Held Shower ,Grab Bars Near Toilet,Grab Bars In Shower Additional Social History Comment pt has a L bed rail M2 OT-IP Current Condition Start: 06/09/21 15:00 Freq: Status: Active Protocol: Document 06/09/21 13:10 [facility] (Rec: 06/09/21 15:15 [facility] [id number]) Occupational Therapy Current Condition Current Condition Evaluation Date 06/09/21 Treatment Diagnosis Dehydration/malnutrition, decreased mobility Diagnosis Onset Date 06/07/21 M3 OT- IP Subjective and Pain Start: 06/09/21 15:00 Freq: Status: Active Protocol: Document 06/09/21 13:10 [facility] (Rec: 06/09/21 15:15 [facility] [id number]) OT- Subjective Occupational Therapy Visit Type Type Initial Evaluation Visit Start Time 12:09 Visit Stop Time 12:32 Total Visit Minutes 23 Occupational Therapy Visit Comments Patient Comments Pt a bit confused today and pt 's present in the room. Patient/Caregiver Goals To go home. OT Pain Assessment Pain When Pain Assessed At Rest Pain Present Pain Present Denied Pain M4 OT- IP ADL's Start: 06/09/21 15:00 Freq: Status: Active Protocol: Document 06/09/21 13:10 [facility] (Rec: 06/09/21 15:15 [facility] [id number]) OT [id number] Comments OT Self-Feeding Comments Per having to feed the pt and that he tries at times but prefers to have assist. OT ADL-Grooming Comments OT Grooming Comments Not performed. OT ADL-Oral Care Comments Oral Care Comments Pt not wanting to do at this time. OT ADL-Dressing General Eval Lower Body Dressing Ability Maximum Assistance Areas Needing Assistance Underpants/Brief,Socks OT ADL-Toileting General Evaluation Areas Needing Assistance Manage Clothing Comments OT Toileting Comments Pt too tired to try to stand to use the urinal and able to use urinal in bed after initial placement and set-up of wash cloth for hygiene. OT ADL-Bathing Comments OT Bathing Comments Sponge bath more appropriate at this time. M5 OT- IP IADL's Start: 06/09/21 15:00 Freq: Status: Active Protocol: Document 06/09/21 13:10 [facility] (Rec: 06/09/21 15:15 [facility] [id number]) OT-Instrumental Activities of Daily Living Home Safety Awareness Awareness of Need for Assistance at Home Decreased Awareness Ability to Problem Solve Emergency Unable to Problem Solve Situations Home Safety Comments Pt a bit confused and mainly just orientated to his name today. Yesterday pt was more alert and able to engage in conversations about cars that he collects. Medication Management Medication Management Caregiver Administers Money Management Money Management Caregiver Provides Assistance Meal Preparation Meal Preparation Caregiver Provides Assist Windows System Admin Windows System Admin Caregiver Provides Assist Driving Driving Concerns Identified Regarding Safety M6 OT- IP Functional Cognition Start: 06/09/21 15:00 Freq: Status: Active Protocol: Document 06/09/21 13:10 [facility] (Rec: 06/09/21 15:15 [facility] [id number]) Cognitive Factors Limiting Selfcare Function Cognitive Ability Level of Alertness Confusional State Patient Orientation Name Attention Span Ability Capable of Focused Attention, Unable to Focus Ability to Follow Commands Able to Follow One Step Commands with Increased Time, Able to Follow One Step Commands with Repetition Cognitive Comments Cognitive Assessment Comments Pt confused today and at one instance was speaking to the therapist as if the therapist was his . Pt needing concrete cues to follow. OT- Vision and Hearing OT- Vision Assessment Vision Assessment Comments Has glasses but does not use them, unable to read the clock correctly. M7 OT- IP Mobility and Balance Start: 06/09/21 15:00 Freq: Status: Active Protocol: Document 06/09/21 13:10 [facility] (Rec: 06/09/21 15:15 [facility] [id number]) OT- Bed Mobility Assessment Sit to Supine Sit to Supine Assist Maximum Assistance,2 Person Assistance OT-Transfer Assessment Sit to and From Stand Sit to and from Stand Moderate Assistance,1 Person Assistance,2 Person Assistance Transfers Transfer Ability Minimal Assistance,Moderate Assistance,2 Person Assistance Technique Transfer Destination Bed,Chair Comments Mobility Comments Pt initially needing MAx AX 1 to stand to help reposition in the recliner and then wanting to get back to bed and needing MIN/MODA X 2 to stand and guide FWW and for his balance. OT- Balance Assessment Sitting Balance and Reactions Static Sitting Balance Ability Fair Standing Balance and Reactions Static Standing Balance Ability Poor Dynamic Standing Balance Ability Poor M8 OT- IP Objective Assessments Start: 06/09/21 15:00 Freq: Status: Active Protocol: Document 06/09/21 13:10 [facility] (Rec: 06/09/21 15:15 [facility] [id number]) OT Gross Range of Motion Upper Extremity Range of Motion Assessment Within Functional Limits OT Strength Upper Extremity Strength Assessment Within Functional Limits OT- Coordination Assessment Upper Extremity Finger to Nose Test Within Functional Limits M9 OT- IP Assessment and Plan Start: 06/09/21 15:00 Freq: Status: Active Protocol: Document 06/09/21 13:10 [facility] (Rec: 06/09/21 15:15 [facility] [id number]) OT Summary Assessment and Plan Potential Rehabilitation Potential Fair Analytic Complexity at Evaluation Moderate Summary OT Impairments Balance,Functional Cognition, Functional Mobility,Self- Feeding,Grooming,Dressing, Toileting,Bathing,Toilet Transfers,Shower Transfers, Activity Tolerance Progress Towards Goals Slow Progress due to Medical Issues,Slow Progress due to Activity Tolerance,Slow Progress due to Cognition Assessment Summary Pt MOD complexity and main barrier are decreased balance, activity tolerance, and now needing extensive assist for Adl and mobility needs. Lately his has been needing to assist pt more for his needs. Pt would benefit from skilled rehab to get stronger and do more for himself. Goals Self-Feeding Goal Standby Assistance Grooming Goal Standby Assistance Dressing Goal Minimal Assistance Toileting Goal Standby Assistance Bathing Goal Minimal Assistance Toilet Transfer Goal Contact Guard Assistance Shower Transfer Goal Contact Guard Assistance Days to Meet Goals 20 Frequency of Treatment Frequency Of Treatment Once a Day Treatment Plan OT Treatment Plan ADL Training,Functional Cognition Training,Functional Mobility,Patient/Family Education,Discharge Planning Other Treatment Recommendations and Next SLUMS Treatment Focus Discharge Recommendations OT Discharge Recommendations SNF Rehab Transportation Needs at Discharge Wheelchair/Cabulance
[2021-06-09] MEDS: IPRATROPIUM 0.06% NASAL 15 ML 1 SPRAY NASAL ×2 (13:13→20:35)
[2021-06-09] MEDS: CARBIDOPA-LEVODOPA 25/100 TABLET 2 EACH PO ×2 (13:33→16:18)
--- NOTE | 2021-06-09 17:11 | P.PN_ITS ---
Subjective Subjective Date Patient Seen: 06/09/21 Time Patient Seen: 17:12 Interval history: 81 year old male with PMH of parkinsons admitted with severe malnutrition and weight loss and weakness. Denies overt complaints today. Again had discussions about goals of care, he would like to continue to attempt rehab placement at this time. Exam Vital Signs (past 8 hours): - 06/09/21 11:00 06/09/21 15:00 Temperature 97.7 F 97.6 F Pulse Rate 66 66 Respiratory Rate 17 18 Blood Pressure 144/75 H 142/71 H Pulse Oximetry 95 96 Oxygen Delivery Method Room Air Oxygen Flow Rate 0 Narrative Exam Narrative: Gen: Alert, oriented, malnourished appearing 81 y.o. male, appears fatigued and pale HEENT: normocephalic, atraumatic, conjunctiva clear, sclera non-icteric, oral mucosa pink and moist. Slight masked facies. Neck: supple, full ROM, no JVD, trachea is midline Resp: Lungs CTA, non-labored breathing CV: RRR, no murmur or rubs Abd: soft, non-tender, normoactive BTs Skin: thin and friable, no lesions or rashes, dry and intact Neuro: Alert and oriented X 4 w/no focal deficits. Speech clear and coherent. Intermittent tremor is noted. Extremities: diffusely weak, no edema or jont effusions. Psyche: depressed / flat affect. but appropriate behavior and calm and cooperative. Objective Labs Result Diagrams: 06/09/21 05:05 06/09/21 05:05 Labs: Laboratory Results - last 24 hr 06/08/21 06/09/21 06/09/21 20:10 05:05 05:05 WBC 3.7 L 3.8 L RBC 3.73 L 3.81 L Hgb 11.6 L 11.8 L Hct 34.1 L 35.0 L MCV 91.5 92.0 MCH 31.0 31.0 MCHC 33.9 33.7 RDW 14.5 14.7 Plt Count 99 L 97 L Neut % (Auto) 56.2 55.0 Lymph % (Auto) 35.0 36.4 Meagher % (Auto) 7.6 6.8 Eos % (Auto) 0.4 L 0.8 L Baso % (Auto) 0.8 1.0 Neut # (Auto) 2100 2100 Lymph # (Auto) 1300 1400 Meagher # (Auto) 300 300 Eos # (Auto) 0 0 Baso # (Auto) 0 0 Sodium 139 Potassium 3.6 Chloride 104 Carbon Dioxide 33 H BUN 11 Creatinine 0.60 L Estimated GFR > 60 BUN/Creatinine Ratio 18.3 Glucose 86 Calcium 8.6 Magnesium 1.9 Total Bilirubin 0.8 Conjugated Bilirubin 0.0 Unconjugated Bilirubin 0.5 AST 19 ALT < 4 Alkaline Phosphatase 30 L Total Protein 5.1 L Albumin 2.9 L Globulin 2.2 Albumin/Globulin Ratio 1.3 [facility] Medical History Anxiety Arthritis Bilateral thigh pain BPPV (benign paroxysmal positional vertigo) Brain TIA Chicken pox Chickenpox (Unknown) Chronic back pain (1964) Chronic constipation Chronic fatigue (2013) Colon polyps (2009) Coronary artery disease Depression (2014) Erectile dysfunction Foot pain (~2016) Hiatal hernia Hypercholesterolemia Hypertension Mumps Panic attacks Parkinson's disease (2014) Proximal muscle weakness Surgical History Anesthesia History of colonoscopy with polypectomy (11/19/17) History of colonoscopy with polypectomy (2009) History of tonsillectomy and adenoidectomy S/P CABG (coronary artery bypass graft) (06/2003) Status post coronary artery bypass graft Status post tonsillectomy and adenoidectomy Family History Father CAD (coronary artery disease) CVA (cerebral vascular accident) Hypertension Diabetes mellitus Heart attack Brain cancer Mother Hypertension Dementia Grandmother Diabetes mellitus Grandfather No problems noted. Brother No problems noted. Sister No problems noted. Social History household members: spouse Smoking Status: Never smoker alcohol intake: former Assessment & Plan Assessment & Plan narrative: Binu Dominguez is admitted for severe protein calorie malnutrition likely associated with depression and worsening Parkinson's disease. Severe protein calorie malnutrition, acute * Weight loss of 40 lbs over the past 6 months with a BMI of 17 * Muscle wasting and weakness, anasarca associated with protein malnutrition seen on CT * Dietary consult * will increase home citalopram to see if benefit. Parkinson's disease, chronic, present on admission * continue home dose of carbidopa levodopa 25/100 1.5 tab po at 0600, 0900, 1300, and 1700 * continue home dose of carbidopa levodopa 50/200 1 tab po at bedtime * continue home dose of entacapone 200 mg 1/2 tab? at 0900 and 2200 CAD, chronic * patient underwent a 3 vessel bypass approximately 20 years ago and subsequent stent placement in 3 vessels a year later * continue home medications including ASA 81 mg po daily, and pravastatin 20 mg po at bedtime Neurogenic bladder * Continue home dose of tamsulosin 0.4 mg po daily. Depression and anxiety, chronic * continue home dose of mirtazapine 30 mg p.o. at bedtime * increase home citalopram to 40 mg daily * Continue clonazapam 1 mg 1.5 tabs po bid * no need for current inpatient psychiatry assistance, would recommend outpatient follow up with [facility] as he was discharged from psychiatry to [facility]. 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 Patient is admitted to the inpatient service due to the severity of disease, risks of further disease progression and this stay is expected to exceed 2 midnights. Dispo: required significant assistance, plan for SNF at discharge. Code status: full code as discussed with the patient who identifies his spouse, Brenda as? his surrogate and POA. Time Spent With Patient Critical Care time: I spent a total of [] minutes of critical care time on this patient's care today; this time is exclusive of procedural time. Quality VTE Deep Vein Thrombosis/Pulmonary Embolism Present on Admission: No
--- NOTE | 2021-06-09 18:05 | PC.NURSE ---
AxO2, little anxious in the morning that he constantly asking about his . Pt denied pain. Pt ate some with is 's help. No BM today, but went to bathroom few times and used urinal other times. His requested his Dronabinol given with meals so this meds given no scheduled time per request. otherwise, no change.
[2021-06-09] MEDS: MIRTAZAPINE 15 MG TABLET 30 MG PO (20:34)
[2021-06-09] MEDS: PRAVASTATIN 20 MG TABLET PO (20:35)
[2021-06-09] MEDS: CARBIDOPA-LEVODOPA ER 50/200 TABLET 1 EACH PO (20:35)
[2021-06-10] VITALS (7 sets, daily range): BP systolic 95–133; BP diastolic 55–76; PULSE 57–68; RESP 12–17; TEMP 36.4–36.8; O2SAT 96–98
[2021-06-10 06:21] LABS: Albumin 3.1 g/dL (3.5-5.0); Albumin Globulin Ratio 1.3 (1.0-2.8); Alkaline Phosphatase 31 U/L (38-126); Aspartate Aminotransferase 26 IU/L (17-59); BUN Creatinine Ratio 23.7 (6-22); Bilirubin Total 0.8 mg/dL (0.2-1.3); Bilirubin Unconjugated 0.5 mg/dL (0.0-1.1); Blood Urea Nitrogen 14 mg/dL (9-20); Carbon Dioxide 32 mmol/L (22-32); Chloride 105 mmol/L (98-107); Estimated Glomerular Filt Rate > 60 mL/min (>60); Globulin 2.3 g/dL (1.7-4.1); Glucose 84 mg/dL (80-110); HEMOLYSIS 35 (0-50); Potassium 3.7 mmol/L (3.4-5.1); Sodium 140 mmol/L (137-145); Total Protein 5.4 g/dL (6.3-8.2)
[2021-06-10] MEDS: CARBIDOPA-LEVODOPA 25/100 TABLET 1 EACH PO ×2 (06:21→08:22)
[2021-06-10 06:25] LABS: Alanine Aminotransferase < 4 IU/L (<50)
[2021-06-10] MEDS: PANTOPRAZOLE DR 40 MG TABLET PO (06:25)
[2021-06-10] MEDS: ENOXAPARIN 40 MG/0.4 ML SYRINGE SUBCUT (08:21)
[2021-06-10] MEDS: ENTACAPONE 200 MG TABLET 100 MG PO ×2 (08:21→21:14)
[2021-06-10] MEDS: clonazePAM 0.5 MG TABLET 1.5 MG PO ×2 (08:21→21:13)
[2021-06-10] MEDS: FOLIC ACID 0.4 MG TABLET PO (08:21)
[2021-06-10] MEDS: TAMSULOSIN 0.4 MG CAPSULE PO (08:22)
[2021-06-10] MEDS: DOCUSATE 100 MG CAPSULE PO ×2 (08:22→21:14)
[2021-06-10] MEDS: DONEPEZIL 5 MG TABLET 10 MG PO (08:22)
[2021-06-10] MEDS: CITALOPRAM 10 MG TABLET 40 MG PO (08:22)
[2021-06-10] MEDS: ASPIRIN 81 MG CHEW TAB PO (08:22)
[2021-06-10] MEDS: SODIUM CHLORIDE 0.9% (RT/INH) 3 ML NEB 1 ML NASAL (08:23)
[2021-06-10] MEDS: IPRATROPIUM 0.06% NASAL 15 ML 1 SPRAY NASAL ×2 (08:23→21:14)
[2021-06-10] MEDS: BACLOFEN 10 MG TABLET PO ×3 (08:25→17:56)
[2021-06-10] MEDS: CARBIDOPA-LEVODOPA 25/100 TABLET 2 EACH PO ×2 (13:51→17:56)
--- NOTE | 2021-06-10 14:27 | PT.IPTN ---
Current Diagnoses Unspecified severe protein-calorie malnutrition (06/07/21) Unspecified protein-calorie malnutrition (06/07/21) Physical Therapy Treatment Note M2 PT-IP Current Condition Start: 06/08/21 12:44 Freq: NEEDED Status: Active Protocol: Document 06/08/21 11:02 AB (Rec: 06/08/21 13:05 AB [id number]) Physical Therapy Current Condition Current Condition Evaluation Date 06/08/21 Treatment Diagnosis malnutrition; PD; difficulty in walking Onset Date 06/07/21 M3 PT-IP Subjective Start: 06/08/21 12:44 Freq: NEEDED Status: Active Protocol: Document 06/10/21 14:27 AW (Rec: 06/10/21 15:19 AW [id number]) Subjective Physical Therapy Visit Type Type Treatment Note Visit Start Time 14:03 Visit Stop Time 14:27 Total Visit Minutes 24 Number of MOCK UP BUILDER Visits 0 Physical Therapy Visit Comments Patient Comments I don't think you'll get much out of me today. M4 PT-IP Mobility and Gait Start: 06/08/21 12:44 Freq: NEEDED Status: Active Protocol: Document 06/10/21 14:27 AW (Rec: 06/10/21 15:19 AW [id number]) PT-Bed Mobility Assessment Supine to Sit Supine to Sit Moderate Assistance,1 Person Assistance PT-Transfer Assessment Sit to and From Stand Sit to and from Stand Moderate Assistance,1 Person Assistance,2 Person Assistance Equipment Transfer Assistive Device Gait Belt,Front Wheeled Walker Orthotic/Prosthetic Devices or Brace: No Transfers Transfer Destination Chair Transfer Technique ambulated with FWW Transfer Ability Level of Assist Minimal Assistance,Moderate Assistance,2 Person Assistance Comments Mobility Comments Pt was lying in bed and initially discouraged when asked about getting out of bed . 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 With some encouragement, he sat up EOB mod A. Sitting BP 85/54 HR 74. He stood mod A x 1 with strong posterior lean and legs pushing back against the bed. After 10 seconds standing, pt needed to sit. After seated rest break, pt agreed to stand again mod A and used FWW to walk 25 feet in the room. Gait was unsteady and pt needed constant mod assist due to retro lean. He ended up sitting on the chair. BP post- activity was 106/63 HR 76. Pt was left in the chair with call light and tray table in reach. Gait Assessment Gait Gait Assistance Required: Minimum Assistance,Moderate Assistance Distance (Feet) 25 Assistive Devices Assistive Device Gait Belt,Front Wheeled Walker Orthotic/Prosthetic Devices or Brace: No Gait Deviations General Gait Pattern Decreased Stride Length, Decreased Feet Clearance, Narrow Based Gait Factors Limiting Gait Function Factors Limiting Gait Function Decreased Activity Tolerance, Decreased Sensation,Decreased Strength,Poor Balance,Poor Safety Awareness Comments Gait Comments Pt exhibits hypokinesia typical of PD. He is able to increase amplitude in gait in response to prompts but is unable to sustain bigger movements. PT-Balance Assessment Sitting Balance and Reactions Static Sitting Balance Ability Fair Dynamic Sitting Balance Ability Fair Standing Balance and Reactions Static Standing Balance Ability Poor Dynamic Standing Balance Ability Poor Device Used FWW M5 PT-IP Objective Assessments Start: 06/08/21 12:44 Freq: NEEDED Status: Active Protocol: Document 06/08/21 11:02 AB (Rec: 06/08/21 13:05 AB [id number]) Orientation Orientation/Cognition Level of Alertness Alert Orientation Name Safety Awareness Decreased Safety Awareness Gross Range of Motion Lower Extremity ROM Assessment Within Functional Limits Strength Lower Extremity Strength Hip 4-/5 Knee 3+/5 Muscle Tone Muscle Tone WNL No Muscle Tone Location Bilateral Upper Extremity Manifistation of Tone Resting Tremors M6 PT-IP Treatment Start: 06/08/21 12:44 Freq: NEEDED Status: Active Protocol: Document 06/10/21 14:27 AW (Rec: 06/10/21 15:19 AW [id number]) Physical Therapy Treatment Education Education Provided Safety M7 PT-IP Assessment and Plan Start: 06/08/21 12:44 Freq: NEEDED Status: Active Protocol: Document 06/10/21 14:27 AW (Rec: 06/10/21 15:19 AW [id number]) PT Summary Assessment and Plan Summary Impairments Pain,ROM,Strength,Balance, Coordination,Sensation,Tone, Cognition,Bed Mobility, Transfers,Gait,Activity Tolerance Progress Towards Goals Slow Progress due to Medical Issues,Slow Progress due to Activity Tolerance Assessment Summary Pt improved with bed mobility this date but continues to require min to mod assist for transfers and ambulation with FWW. Pt requires SNF rehab to improve strength and mobility independence. Goals Bed Mobility Goal Standby Assistance Transfer Goal Contact Guard Assistance,Front Wheeled Walker Gait Goal Contact Guard Assistance,Front Wheel Walker Gait Distance 100 Other Goals improve ambulation using 4WW CGA 150 ft up/down 1 step using FWW/4WW CGA Days to Meet Goals 10 Frequency of Treatment Frequency Of Treatment Once a Day Treatment Plan Physical Therapy Treatment Plan Bed Mobility Training,Transfer Training,Gait Training, Therapeutic Exercise,Balance Retraining,Discharge Planning, Hot or Cold Pack,Neuromuscular Re-ed,Coordination Retraining ,Manual Therapy Precautions Other Precautions falls Recommendations To Nursing Amount of Assist Needed 1 Person Assist Discharge Recommendations PT Discharge Recommendations SNF Rehab Equipment Needed for Home Before FWW if pt goes home and not Discharge safe with 4WW Transportation Needs at Discharge Wheelchair/Cabulance
--- NOTE | 2021-06-10 14:38 | CM.DANOTE ---
DCP/continued: Reviewed chart. Spoke with provider and current plan d/c plan is for patient to go to [facility] tomorrow 06-04-21. 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 Placed call to July and she reports that they can accept tomorrow. P: PRATEEK Samano
--- NOTE | 2021-06-10 16:10 | P.PN_ITS ---
Subjective Subjective Date Patient Seen: 06/10/21 Time Patient Seen: 16:11 Interval history: 81 year old male with PMH of parkinsons admitted with severe malnutrition and weight loss and weakness. Denies overt complaints today. Plan for transfer to SNF tomorrow. Exam Vital Signs (past 8 hours): - 06/10/21 08:36 06/10/21 09:10 06/10/21 12:00 Temperature 97.6 F 98.1 F Pulse Rate 68 57 L Respiratory Rate 12 16 Blood Pressure 131/72 115/63 Pulse Oximetry 97 96 98 Oxygen Delivery Method Room Air Oxygen Flow Rate 0 Narrative Exam Narrative: Gen: Alert, oriented, malnourished appearing 81 y.o. male, appears fatigued and pale HEENT: normocephalic, atraumatic, conjunctiva clear, sclera non-icteric, oral mucosa pink and moist. Slight masked facies. Neck: supple, full ROM, no JVD, trachea is midline Resp: Lungs CTA, non-labored breathing CV: RRR, no murmur or rubs Abd: soft, non-tender, normoactive BTs Skin: thin and friable, no lesions or rashes, dry and intact Neuro: Alert and oriented X 4 w/no focal deficits. Speech clear and coherent. Intermittent tremor is noted. Extremities: diffusely weak, no edema or jont effusions. Psyche: depressed / flat affect. but appropriate behavior and calm and ziggy ative. Objective Labs Result Diagrams: 06/09/21 05:05 06/10/21 05:45 Labs: Laboratory Results - last 24 hr 06/10/21 05:45 Sodium 140 Potassium 3.7 Chloride 105 Carbon Dioxide 32 BUN 14 Creatinine 0.59 L Estimated GFR > 60 BUN/Creatinine Ratio 23.7 H Glucose 84 Calcium 9.0 Magnesium 2.0 Total Bilirubin 0.8 Conjugated Bilirubin 0.0 Unconjugated Bilirubin 0.5 AST 26 ALT < 4 Alkaline Phosphatase 31 L Total Protein 5.4 L Albumin 3.1 L Globulin 2.3 Albumin/Globulin Ratio 1.3 COUNT INCLUDES THE [facility] Medical History Anxiety Arthritis Bilateral thigh pain BPPV (benign paroxysmal positional vertigo) Brain TIA Chicken pox Chickenpox (Unknown) Chronic back pain (1964) Chronic constipation Chronic fatigue (2013) Colon polyps (2010) Coronary artery disease Depression (2015) Erectile dysfunction Foot pain (~2017) Hiatal hernia Hypercholesterolemia Hypertension Mumps Panic attacks Parkinson's disease (2015) Proximal muscle weakness Surgical History Anesthesia History of colonoscopy with polypectomy (11/19/17) History of colonoscopy with polypectomy (2009) History of tonsillectomy and adenoidectomy S/P CABG (coronary artery bypass graft) (06/2003) Status post coronary artery bypass graft Status post tonsillectomy and adenoidectomy Family History Father CAD (coronary artery disease) CVA (cerebral vascular accident) Hypertension Diabetes mellitus Heart attack Brain cancer Mother Hypertension Dementia Grandmother Diabetes mellitus Grandfather No problems noted. Brother No problems noted. Sister No problems noted. Social History household members: spouse Smoking Status: Never smoker alcohol intake: former Assessment & Plan Assessment & Plan narrative: Binu Dominguez is admitted for severe protein calorie malnutrition likely associated with depression and worsening Parkinson's disease. Severe protein calorie malnutrition, acute * Weight loss of 40 lbs over the past 6 months with a BMI of 17 * Muscle wasting and weakness, anasarca associated with protein malnutrition seen on CT * Dietary consult * increased home citalopram to see if benefit. reassess with PMD. Parkinson's disease, chronic, present on admission * continue home dose of carbidopa levodopa 25/100 1.5 tab po at 0600, 0900, 1300, and 1700 * continue home dose of carbidopa levodopa 50/200 1 tab po at bedtime * continue home dose of entacapone 200 mg 1/2 tab? at 0900 and 2200 CAD, chronic * patient underwent a 3 vessel bypass approximately 20 years ago and subsequent stent placement in 3 vessels a year later * continue home medications including ASA 81 mg po daily, and pravastatin 20 mg po at bedtime Neurogenic bladder * Continue home dose of tamsulosin 0.4 mg po daily. Depression and anxiety, chronic * continue home dose of mirtazapine 30 mg p.o. at bedtime * increase home citalopram to 40 mg daily * Continue clonazapam 1 mg 1.5 tabs po bid * no need for current inpatient psychiatry assistance, would recommend outpatien t follow up with [facility] as he was discharged from psychiatry to [facility]. 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 Patient is admitted to the inpatient service due to the severity of disease, risks of further disease progression and this stay is expected to exceed 2 midnights. Dispo: requires significant assistance, plan for SNF at discharge. Code status: full code as discussed with the patient who identifies his spouse, Brenda as? his surrogate and POA. Time Spent With Patient Critical Care time: I spent a total of [] minutes of critical care time on this patient's care today; this time is exclusive of procedural time. Quality VTE Deep Vein Thrombosis/Pulmonary Embolism Present on Admission: No
--- NOTE | 2021-06-10 16:48 | PC.NURSE ---
Pt AxOx2-3 sometimes forgetful. Pt's appetite slowly increasing; pt denies pain. Pt ate well and had shower today. Plan is to d/c on Friday. Spouse is aware of it. Otherwise, no change.
[2021-06-10] MEDS: CARBIDOPA-LEVODOPA ER 50/200 TABLET 1 EACH PO (21:13)
[2021-06-10] MEDS: PRAVASTATIN 20 MG TABLET PO (21:14)
[2021-06-10] MEDS: SODIUM CHLORIDE 0.9% FLUSH 10 ML IV (21:15)
[2021-06-10] MEDS: MIRTAZAPINE 15 MG TABLET 30 MG PO (21:16)
--- NOTE | 2021-06-10 21:34 | PC.NURSE ---
Patient is alert and oriented except was not certain why he is in the hospital. Seems somewhat anxious, using call light frequently for variety of minor needs/concerns and is forgetful. Breath sounds CTA with RA sat of 97%. HRR. BT present and states he is passing flatus but has not had BM recorded since 06/02 but reportedly eating very little per previous RN. Is voiding per urinal and denies dysuria, frequency or urgency. Is able to turn himself in bed. Has Parkinson's tremor in bilateral UE. Gait not assessed at this time but reportedly needing 1 assist + walker when out of bed. Has small open area at top of coccyx which does not appear to be from pressure as no redness around area. Denies pain. Refusing SCD's so reminded to ankle wave. Fall risk score is high and bed alarm is activated.
[2021-06-11 01:15] VITALS: BP 151/79; PULSE 67; RESP 14; TEMP 36.3; O2SAT 97
[2021-06-11] MEDS: PANTOPRAZOLE DR 40 MG TABLET PO (06:08)
[2021-06-11] MEDS: CARBIDOPA-LEVODOPA 25/100 TABLET 1 EACH PO ×2 (06:08→08:11)
--- NOTE | 2021-06-11 07:53 | PM.DS.1 ---
History of Present Illness History of Present Illness Date Patient Seen: 06/11/21 Chief complaint: severly dehydrated - sent by [facility] Narrative: BULMARO Cash: Kervin Dominguez is an 81-year-old male with history of Parkinson's disease who presented to the emergency department for an evaluation of anorexia and dehydration.? Patient's who is at bedside states that approximately 2 days ago the patient was evaluated by his neurologist and was believed to be severely dehydrated.?Review of Dr. Josephine Jett's (Neurologist) note stated a concern of the patient remaining in the same state of depression, no longer eating and haing lost a considerable amount of weight. , Brenda states that the patient was evaluated [facility] today and was urged to come to the emergency department for the patient's condition.? Patient's states that the patient does not eat and drink regularly, stating that the patient does not have an appetite.? Patient states nothing tastes good to me and feels he is getting weaker and weaker. He will eat eggs in any form and sweet fresh fruits, but not much else including protein drinks. states he drinks very little fluid. Additionally, patient states that he has not experienced a bowel movement in at least the last 5 days and has been experiencing abdominal pain.?He does endorse feeling depressed and is in bed much of the day. Of note, patient's states that the patient's neurologist became concerned that the patient's abdomen did appear ?distended? during his most recent visit with the neurologist.? No fevers, chills, chest pain, cough, shortness of breath, nausea, vomiting, diarrhea, or dysuria. Dr. Jett's reduced his dose of mirtazapine and added dronabinol in hopes it would increase his appetite. Due to swallowing difficulties, patient underwent a barium swallow which was normal and recommended soft foods. Patient is a full code but declines placement of a feeding tube for nourishment. CT of the abdomen and pelvis noted: 1. generalized anasarca/body wall edema suggestive of low protein state or 3rd spacing w/no ascites in the abdomen,?2. Contrast filled colon and otherwise normal stomach and bowel.? No explanation for distension and no acute process. 3. Cholelithiasis. ?4. Right lobe liver hemangioma and partially imaged cystic lesions in the left hepatic lobe.? Patient is afebrile, blood pressure 152/81, heart rate 67, oxygen saturation of 97% on room air he weighs 47.5 kg with a BMI of 17.3.? WBC is unremarkable except for a mildly low platelet count of a 119, BUN is 24, is a normal A1c, liver enzymes within normal limits and COVID-19 PCR is negative. Discharge Providers Provider Date of admission: 06/07/21 18:20 Discharge Date: 06/11/21 Primary care physician: Raoul Salguero MD Consults: 06/07/21 Consult to Dietitian, Adult Routine Comment: will eat seasoned eggs and fruit Reason For Exam: anorexia, diet recommendations 06/08/21 08:31 Consult to Occupational Therapy Evaluate & Treat Comment: Physician Instructions: Evaluate and treat Consult to Physical Therapy Evaluate & Treat Comment: Physician Instructions: Evaluate and Treat Discharge provider: Jesus Jamil DO Summary Hospital Course Discharge Diagnosis: Severe protein calorie malnutrition, acute Parkinson's disease, chronic, present on admission CAD, chronic Neurogenic bladder Depression and anxiety, chronic 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 No acute reversible cause could be found, and weight loss is likely a result of his progressive Parkinson's disease as well as underlying depression. His home citalopram was increased to 40 mg daily from 20 mg. I do recommend follow-up with his primary care provider for further medication adjustment. I further recommend follow-up with his neurologist over possible adjustments to his Parkinson's medications. Goals of care discussions with patient revealed that he would very much still like to continue to try and improve and is not interested in hospice at this time. Other than adjustment of his home citalopram, and no other significant medical changes were made. Patient was seen by physical and occupational therapies, who recommended halfway, where the patient was transferred on the day of discharge. Time Spent with Patient Time spent: Greater than 30 minutes Exam Vital Signs (past 8 hours): - 06/11/21 01:15 Temperature 97.3 F L Pulse Rate 67 Respiratory Rate 14 Blood Pressure 151/79 H Pulse Oximetry 97 Oxygen Delivery Method Room Air Oxygen Flow Rate 0 Narrative Exam Narrative: Gen: Alert, oriented, thin with muscle wasting 81 y.o. male, appears fatigued and pale HEENT: normocephalic, atraumatic, conjunctiva clear, sclera non-icteric, oral mucosa pink and moist. Slight masked facies. Neck: supple, full ROM, no JVD, trachea is midline Resp: Lungs CTA, non-labored breathing CV: RRR, no murmur or rubs Abd: soft, non-tender, normoactive BTs Skin: thin and friable, no lesions or rashes, dry and intact Neuro: Alert and oriented X 4 w/no focal deficits. Speech clear and coherent. Intermittent tremor is noted. Extremities: diffusely weak, no edema or jont effusions. Psyche: depressed / flat affect. but appropriate behavior and calm and cooperative. Objective Labs Result Diagrams: 06/09/21 05:05 06/10/21 05:45 [facility] Medical History Anxiety Arthritis Bilateral thigh pain BPPV (benign paroxysmal positional vertigo) Brain TIA Chicken pox Chickenpox (Unknown) Chronic back pain (1965) Chronic constipation Chronic fatigue (2013) Colon polyps (2010) Coronary artery disease Depression (2014) Erectile dysfunction Foot pain (~2017) Hiatal hernia Hypercholesterolemia Hypertension Mumps Panic attacks Parkinson's disease (2014) Proximal muscle weakness Surgical History Anesthesia History of colonoscopy with polypectomy (11/19/17) History of colonoscopy with polypectomy (2009) History of tonsillectomy and adenoidectomy S/P CABG (coronary artery bypass graft) (06/2003) Status post coronary artery bypass graft Status post tonsillectomy and adenoidectomy Family History Father CAD (coronary artery disease) CVA (cerebral vascular accident) Hypertension Diabetes mellitus Heart attack Brain cancer Mother Hypertension Dementia Grandmother Diabetes mellitus Grandfather No problems noted. Brother No problems noted. Sister No problems noted. Social History household members: spouse Smoking Status: Never smoker alcohol intake: former Discharge Plan Discharge Plan Patient Disposition: SNF Transfer to: [facility] Provider Discharge Comment: Patient was admitted for protein calorie malnutrition. Likely result of his progressive Parkinson's disease as well as depression. His home citalopram was increased, no other significant medical changes were made. They recommend follow-up with his primary care provider and neurologist as an outpatient for further dosing adjustments. Goals of care discussions reveal that the patient was not interested in hospice at this time, though I would recommend palliative care referral as an outpatient to potentially help clarify his goals as his Parkinson's disease progresses. Discharge orders & Medications Prescriptions: New carbidopa-levodopa 50-200 mg Tablet Extended Release 1 tab PO BEDTIME 30 Days Qty: 30 0RF carbidopa-levodopa 25-100 mg Tablet 1 tab PO BID@0600,0900 30 Days Qty: 30 0RF carbidopa-levodopa 25-100 mg Tablet 2 tab PO BID@1300,1700 30 Days Qty: 60 0RF citalopram 40 mg tablet 40 mg PO DAILY 30 Days Qty: 30 0RF Continued donepezil 10 mg tablet 10 mg PO 0900 90 Days 0RF folic acid 400 mcg tablet 0.4 mg PO DAILY 0RF cholecalciferol (vitamin D3) 50 mcg (2,000 unit) capsule 100 mcg PO DAILY 0RF Label Comments: takes 2- 50mcg capsules qam docusate sodium 100 mg capsule 100 mg PO BID Qty: 60 6RF pravastatin 20 mg tablet 20 mg PO BEDTIME Qty: 90 3RF entacapone 200 mg tablet 100 mg PO BID 0RF Label Comments: takes 100mg at 0900 and 100mg at 2100 Rx Instructions: administer at the same time as l-dopa/carbidopa dose omeprazole 20 mg capsule,delayed release(DR/EC) 20 mg PO QAM 0RF dronabinol 2.5 mg Capsule 2.5 mg PO TID 0RF Rx Instructions: administer before lunch and evening meal/dinner aspirin 81 mg Tablet,Chewable 81 mg PO DAILY 0RF cyclobenzaprine 10 mg Tablet 10 mg PO DAILY PRN (Reason: muscle spasms) 0RF tamsulosin 0.4 mg Capsule 0.4 mg PO DAILY 0RF ginkgo biloba 40 mg Capsule 40 mg PO DAILY 0RF Rx Instructions: give with meal/snack mirtazapine 30 mg Tablet 30 mg PO BEDTIME 0RF ipratropium bromide 21 mcg (0.03 %) [place],Non-Aerosol 2 spray INTRANASAL BID 0RF Label Comments: does saline flush in each nostril before medication Rx Instructions: administer into each nostril melatonin 5 mg Tablet 5 mg PO BEDTIME PRN (Reason: Sleep) 0RF lidocaine 4 % Gel 1 applic TOPICAL QD-BID PRN (Reason: bottom sore) 0RF vitamin E 400 unit Capsule 400 unit PO DAILY 0RF clonazepam 0.5 mg Tablet 1.5 mg PO BID 7 Days Qty: 42 0RF clonazepam 2 mg Tablet 2 mg PO BID PRN (Reason: Anxiety) 7 Days Qty: 10 0RF Changed baclofen 10 mg Tablet 10 mg PO 0900,1300,1700 Qty: 0 0RF Label Comments: takes 0900, 1300, 1700 Discontinued carbidopa-levodopa 50-200 mg tablet extended release 1 tab PO BEDTIME 90 Days 0RF citalopram [Celexa] 20 mg tablet 20 mg PO QDAY Qty: 90 0RF carbidopa-levodopa 25-100 mg tablet 1 tab PO QID 0RF Label Comments: takes at 1-0600, 1-0900, 2-1300, 2-1700 Follow up/Referrals: Raoul Salguero MD [Primary Care Provider] - Discharge Data Primary Care Provider: Raoul Salguero Quality VTE Deep Vein Thrombosis/Pulmonary Embolism Present on Admission: No
[2021-06-11] MEDS: ASPIRIN 81 MG CHEW TAB PO (08:06)
[2021-06-11] MEDS: CITALOPRAM 10 MG TABLET 40 MG PO (08:08)
[2021-06-11] MEDS: DOCUSATE 100 MG CAPSULE PO (08:08)
[2021-06-11] MEDS: ENOXAPARIN 40 MG/0.4 ML SYRINGE SUBCUT (08:08)
[2021-06-11] MEDS: clonazePAM 0.5 MG TABLET 1.5 MG PO (08:08)
[2021-06-11] MEDS: SODIUM CHLORIDE 0.9% FLUSH 10 ML IV (08:09)
[2021-06-11] MEDS: TAMSULOSIN 0.4 MG CAPSULE PO (08:09)
[2021-06-11] MEDS: ENTACAPONE 200 MG TABLET 100 MG PO (08:09)
[2021-06-11] MEDS: FOLIC ACID 0.4 MG TABLET PO (08:09)
[2021-06-11] MEDS: IPRATROPIUM 0.06% NASAL 15 ML 1 SPRAY NASAL (08:11)
[2021-06-11] MEDS: BACLOFEN 10 MG TABLET PO ×2 (08:11→11:05)
[2021-06-11] MEDS: DONEPEZIL 5 MG TABLET 10 MG PO (08:21)
[2021-06-11 08:37] VITALS: O2SAT 95
[2021-06-11] MEDS: BISACODYL 5 MG TABLET 10 MG PO (10:22)
[2021-06-11] MEDS: polyethylene glycoL 3350 17 GM POWD.PACK PO (10:23)
[2021-06-11] MEDS: CARBIDOPA-LEVODOPA 25/100 TABLET 2 EACH PO (11:06)
--- NOTE | 2021-06-11 11:07 | PT.IPTN ---
Current Diagnoses Unspecified severe protein-calorie malnutrition (06/07/21) Unspecified protein-calorie malnutrition (06/07/21) Physical Therapy Treatment Note M2 PT-IP Current Condition Start: 06/08/21 12:44 Freq: NEEDED Status: Discharge Protocol: Document 06/11/21 10:44 SP (Rec: 06/12/21 09:02 SP [id number]) Physical Therapy Current Condition Current Condition Evaluation Date 06/08/21 Treatment Diagnosis malnutrition; PD; difficulty in walking Onset Date 06/07/21 M3 PT-IP Subjective Start: 06/08/21 12:44 Freq: NEEDED Status: Discharge Protocol: Document 06/11/21 10:44 SP (Rec: 06/12/21 09:02 SP [id number]) Subjective Physical Therapy Visit Type Type Treatment Note Visit Start Time 10:44 Visit Stop Time 11:07 Total Visit Minutes 23 Notes Vitals taken during tx: supine: BP 119/69 HR 67 SaO2 97% on RA Post mobility: 149/ 79 HR 138 Number of PULMONARY PHYSICAL THERAPIST Visits 1 Physical Therapy Visit Comments Patient Comments Pt agreeable to working with therapy. M4 PT-IP Mobility and Gait Start: 06/08/21 12:44 Freq: NEEDED Status: Discharge Protocol: Document 06/11/21 10:44 SP (Rec: 06/12/21 09:02 SP [id number]) PT-Bed Mobility Assessment Supine to Sit Supine to Sit Contact Guard Assistance,1 Person Assistance,Head of Bed Elevated,Bedrails Sit to Supine Sit to Supine Minimal Assistance,Bedrails PT-Transfer Assessment Sit to and From Stand Sit to and from Stand Minimal Assistance,1 Person Assistance,Use of Upper Extremities Equipment Transfer Assistive Device Gait Belt,Front Wheeled Walker Orthotic/Prosthetic Devices or Brace: No Transfers Transfer Destination Chair Transfer Technique ambulated with FWW Transfer Ability Level of Assist Minimal Assistance,1 Person Assistance,Use of Upper Extremities Comments Mobility Comments Pt was laying in bed when arrived. Completed elevated 30deg supine>sit and scoot to EOB CGA. Sit>stand Min A and gait around room 30 ft w/ FWW, use of grab bar in bathroom CG-Min A for mobility/ stability. Pt gait 8 ft w/FWW returned to bed, Min A for LE support into bed. Pt had call light and all needs in reach with bed alarmed before left. Gait Assessment Gait Gait Assistance Required: Minimum Assistance,1 Person Assist Distance (Feet) 30 Able to Maintain Weight Bearing Status Yes During Gait Assistive Devices Assistive Device Gait Belt,Front Wheeled Walker Orthotic/Prosthetic Devices or Brace: No Gait Deviations General Gait Pattern Antalgic,Decreased Stride Length,Decreased Feet Clearance,Narrow Based Gait Factors Limiting Gait Function Factors Limiting Gait Function Decreased Activity Tolerance, Decreased Sensation,Decreased Strength,Poor Balance,Poor Safety Awareness Comments Gait Comments Cues for increase step length and foot clearance. PT-Balance Assessment Sitting Balance and Reactions Static Sitting Balance Ability Good Dynamic Sitting Balance Ability Fair Standing Balance and Reactions Static Standing Balance Ability Fair Dynamic Standing Balance Ability Poor Device Used FWW M5 PT-IP Objective Assessments Start: 06/08/21 12:44 Freq: NEEDED Status: Discharge Protocol: Document 06/08/21 11:02 AB (Rec: 06/08/21 13:05 AB [id number]) Orientation Orientation/Cognition Level of Alertness Alert Orientation Name Safety Awareness Decreased Safety Awareness Gross Range of Motion Lower Extremity ROM Assessment Within Functional Limits Strength Lower Extremity Strength Hip 4-/5 Knee 3+/5 Muscle Tone Muscle Tone WNL No Muscle Tone Location Bilateral Upper Extremity Manifistation of Tone Resting Tremors M6 PT-IP Treatment Start: 06/08/21 12:44 Freq: NEEDED Status: Discharge Protocol: Document 06/11/21 10:44 SP (Rec: 06/12/21 09:02 SP [id number]) Physical Therapy Treatment Education Education Provided Safety M7 PT-IP Assessment and Plan Start: 06/08/21 12:44 Freq: NEEDED Status: Discharge Protocol: Document 06/11/21 10:44 SP (Rec: 06/12/21 09:02 SP [id number]) PT Summary Assessment and Plan Potential Rehabilitation Potential Fair Status of Condition at Evaluation Evolving Summary Impairments Pain,ROM,Strength,Balance, Coordination,Sensation,Tone, Cognition,Bed Mobility, Transfers,Gait,Activity Tolerance Progress Towards Goals Progressing Toward Goals,Slow Progress due to Activity Tolerance Assessment Summary Pt improved in bed mob CGA, transfers and gait w/ FWW Min A for trunk stability. Pt is not back to baseline. Recommending SNF for progress instrength and functional independence in mobility. Goals Bed Mobility Goal Standby Assistance Transfer Goal Contact Guard Assistance,Front Wheeled Walker Gait Goal Contact Guard Assistance,Front Wheel Walker Gait Distance 100 Other Goals improve ambulation using 4WW CGA 150 ft up/down 1 step using FWW/4WW CGA Days to Meet Goals 10 Frequency of Treatment Frequency Of Treatment Once a Day Treatment Plan Physical Therapy Treatment Plan Bed Mobility Training,Transfer Training,Gait Training, Therapeutic Exercise,Balance Retraining,Discharge Planning, Hot or Cold Pack,Neuromuscular Re-ed,Coordination Retraining ,Manual Therapy Other Recommendations and Next Treatment LE ex, transfers gait further Focus distance. Precautions Other Precautions falls Recommendations To Nursing Amount of Assist Needed 1 Person Assist Discharge Recommendations PT Discharge Recommendations SNF Rehab Equipment Needed for Home Before FWW if pt goes home and not Discharge safe with 4WW Transportation Needs at Discharge Wheelchair/Cabulance
[2021-06-11 11:18] LABS: COVID19 -Nasal RAPID Negative (Negative)
[2021-06-11 11:31] VITALS: BP 98/55; PULSE 78; RESP 16; TEMP 36.6; O2SAT 95
--- NOTE | 2021-06-11 13:13 | PC.NURSE ---
Discharge Note Patient A&O to baseline, VSS, RA, no complaints of pain/discomfort. Discharge plan reviewed with , all questions/concerns addressed. Report given to SNF all questions/concerns addressed. PIV discontinued. Patient able to stand with a FWW to wheelchair. All belongings packed and given to patients . Patient taken down via wheelchair by facility staff.
--- NOTE | 2021-06-11 15:28 | CM.DANOTE ---
DCP/continued: Reviewed chart. Orders received for patient to d/c to [facility]. Orders written and faxed to [facility]. July reports car pick up driver around 1:00pm. RN updated and given number to call nursging report. No additional needs identified. Met with patient and spouse both aware and agreeable to plan. PASRR updated to hospital exempt due to increase in depression medication. P: [facility] today. PRATEE[place]
== END 2021-06-11 13:10 | DRG 641 ==
LOC: ED 15:29 → AC 18:38
PROVIDERS: Emergency Medicine; Internal Medicine; Nurse Practitioner Family; Admitting Provider Internal Medicine; Emergency Provider Physician Assistant; PCP Student in an Organized Health Care Education/Training Program; Referring Provider Physician Assistant; Visit Provider Internal Medicine
DX: E43 Unspecified severe protein-calorie malnutrition (principal); Z68.1 Body mass index [BMI] 19.9 or less, adult; E86.0 Dehydration; F32.9 Major depressive disorder, single episode, unspecified; G20 Parkinson's disease; F02.80 Dementia in other diseases classified elsewhere, unspecified severity, without behavioral disturbance, psychotic disturbance, mood disturbance, and anxiety; I25.10 Atherosclerotic heart disease of native coronary artery without angina pectoris; N31.9 Neuromuscular dysfunction of bladder, unspecified; F41.9 Anxiety disorder, unspecified; F51.04 Psychophysiologic insomnia; E78.00 Pure hypercholesterolemia, unspecified; Z20.822 Contact with and (suspected) exposure to COVID-19; Z95.1 Presence of aortocoronary bypass graft; Z95.5 Presence of coronary angioplasty implant and graft
CPT/HCPCS: 36415; 74177; 80048; 80053; 80076; 81003; 82550; 83036; 83690; 83735; 84443; 84484; 85025; 87635; 94760; 94762; 96360; 96361; 97116; 97162; 97166; 97530; 99284; C9803; J1650; J7121; Q9967

== ENCOUNTER 2021-06-26 09:25 | Inpatient (IN) | payer MEDICARE, OTHER, SELFPAY ==
[2021-06-07 20:22] VITALS: BMI 17.3
[2021-06-26] VITALS (71 sets, daily range): BP systolic 71–176; BP diastolic 40–119; PULSE 72–121; RESP 10–52; TEMP 36.5–37.3; O2SAT 64–100; BMI 16.0
[2021-06-26] MEDS: SODIUM CHLORIDE 0.9% 3,000 ML 1000 ML IV (09:30)
--- NOTE | 2021-06-26 09:30 | DI.CT.S_ITS ---
PROCEDURE: CT STROKE INDICATIONS: right gaze TECHNIQUE: Noncontrast 4.5 mm thick angled axial sections acquired from the foramen magnum to the vertex, with coronal reformats. For radiation dose reduction, the following was used: automated exposure control, adjustment of mA and/or kV according to patient size. COMPARISON: [facility], CT, CT STROKE, 09/13/2019, 23:30. FINDINGS: Image quality: Excellent. CSF spaces: Basal cisterns are patent. No extra-axial fluid collections. The ventricles are symmetric in size and shape. Brain: No intracranial bleeds or masses. Left basal ganglia hyperdensities are unchanged, likely calcifications. There is cerebral volume loss for age, with resultant ventricular and sulcal prominence. There are periventricular and deep white matter chronic small vessel ischemic changes. There is intracranial internal carotid artery atherosclerosis. Skull and face: Calvarium and visualized facial bones appear intact, without suspicious lesions. Sinuses: Visualized sinuses and mastoids are clear. IMPRESSION: 1. No acute intracranial abnormality. 2. Cerebral volume loss and small vessel ischemic changes. Findings were discussed with the emergency department at 09:55 on 06/26/2021 This study fulfills neurological imaging criteria for inclusion or exclusion of acute stroke therapies based on available published neurological guidelines. Dictated by: Clarke Bolton M.D. on 06/26/2021 at 9:54 Approved by: Clarke Bolton M.D. on 06/26/2021 at 9:58
--- NOTE | 2021-06-26 09:48 | ED_ITS ---
HPI - Neuro Symptoms/Deficit General Chief Complaint: Neuro Symptoms/Deficit Stated Complaint: AMS, Stroke Time Seen by Provider: 06/26/21 09:30 History of Present Illness HPI Narrative: Pain patient is an 81-year-old male who has a history of advancing Parkinson's disease, coronary artery disease, TIA presenting today as a code stroke. Last known well was 9:00 a.m. he was seen by staff and at 9:30 a.m. he had right- sided gaze is some slurring of speech. EMS found him to be severely hypotensive with a blood pressure in the 70s. Patient overall she has difficultly weak. He is able to follow commands and answer some questions. He was admitted June 07 through June 11 for dehydration. states that he needs help with all daily living activities. He does not eat or drink enough. He was his normal self yesterday. states that as speech of slurring comes and goes and is his norm. Related Data Home Medications Medication Instructions Recorded Confirmed donepezil 10 mg tablet 10 mg PO 0900 90 Days tab 01/13/18 06/07/21 cholecalciferol (vitamin D3) 50 100 mcg PO DAILY 12/02/19 06/07/21 mcg (2,000 unit) capsule folic acid 400 mcg tablet 0.4 mg PO DAILY 12/02/19 06/07/21 omeprazole 20 mg capsule,delayed 20 mg PO QAM 03/03/21 06/07/21 release entacapone 200 mg tablet 100 mg PO BID tab 03/20/21 06/07/21 aspirin 81 mg chewable tablet 81 mg PO DAILY 06/07/21 06/07/21 cyclobenzaprine 10 mg tablet 10 mg PO DAILY PRN 06/07/21 06/07/21 ginkgo biloba 40 mg capsule 40 mg PO DAILY 06/07/21 06/07/21 ipratropium bromide 21 mcg (0.03 2 spray INTRANASAL TID 06/07/21 06/26/21 %) nasal spray lidocaine 4 % topical gel 1 applic TOPICAL QD-BID PRN 06/07/21 06/07/21 melatonin 5 mg tablet 5 mg PO BEDTIME PRN 06/07/21 06/07/21 mirtazapine 30 mg tablet 30 mg PO BEDTIME 06/07/21 06/07/21 tamsulosin 0.4 mg capsule 0.4 mg PO DAILY 06/07/21 06/07/21 vitamin E 400 unit capsule 400 unit PO DAILY 06/07/21 06/07/21 Previous Rx's Medication Instructions Recorded docusate sodium 100 mg capsule 100 mg PO BID #60 cap 04/05/21 pravastatin 20 mg tablet 20 mg PO BEDTIME #90 tab 04/20/21 baclofen 10 mg tablet 10 mg PO 0900,1300,1700 #0 tab 06/11/21 carbidopa 25 mg-levodopa 100 mg 1 tab PO BID@0600,0900 30 Days #30 06/11/21 tablet tab carbidopa 25 mg-levodopa 100 mg 2 tab PO BID@1300,1700 30 Days #60 06/11/21 tablet tab carbidopa ER 50 mg-levodopa 200 mg 1 tab PO BEDTIME 30 Days #30 tab 06/11/21 tablet,extended release citalopram 40 mg tablet 40 mg PO DAILY 30 Days #30 tab 06/11/21 clonazepam 0.5 mg tablet 1.5 mg PO BID 7 Days #42 tab 06/11/21 clonazepam 2 mg tablet 2 mg PO BID PRN 7 Days #10 tab 06/11/21 dronabinol 2.5 mg capsule 2.5 mg PO TID 30 Days #90 cap 06/11/21 Allergies Allergy/AdvReac Type Severity Reaction Status Date / Time haloperidol [From Haldol] AdvReac Severe dystonia Verified 06/07/21 21:16 metoclopramide AdvReac Severe dystonia Verified 06/07/21 21:16 Phenothiazines AdvReac Severe dystonia Verified 06/07/21 21:16 onion AdvReac Intermediate Heartburn Verified 06/07/21 21:16 Review of Systems Review of Systems ROS Unobtainable: All systems reviewed & are unremarkable except as noted in HPI and below Patient History Medical History Anxiety Arthritis Bilateral thigh pain BPPV (benign paroxysmal positional vertigo) Brain TIA Chicken pox Chickenpox (Unknown) Chronic back pain (1965) Chronic constipation Chronic fatigue (2013) Colon polyps (2009) Coronary artery disease Depression (2014) Erectile dysfunction Foot pain (~2017) Hiatal hernia Hypercholesterolemia Hypertension Mumps Panic attacks Parkinson's disease (2015) Proximal muscle weakness Surgical History Anesthesia History of colonoscopy with polypectomy (11/19/17) History of colonoscopy with polypectomy (2009) History of tonsillectomy and adenoidectomy S/P CABG (coronary artery bypass graft) (06/2003) Status post coronary artery bypass graft Status post tonsillectomy and adenoidectomy Family History Father CAD (coronary artery disease) CVA (cerebral vascular accident) Hypertension Diabetes mellitus Heart attack Brain cancer Mother Hypertension Dementia Grandmother Diabetes mellitus Grandfather No problems noted. Brother No problems noted. Sister No problems noted. Social History household members: spouse Smoking Status: Never smoker alcohol intake: former Smoking Status: Never smoker alcohol intake frequency: 0-2 drinks per day Substance Use Type: does not use Exam Initial Vital Signs Initial Vital Signs: Vital Signs Pulse Rate 120 H 06/26/21 09:25 Blood Pressure 176/119 H 06/26/21 09:25 Pulse Oximetry 64 L 06/26/21 09:25 GENERAL: Cachectic pale 81-year-old male HEENT: Head atraumatic right-sided gaze negative doll's eyes face symmetric, moist mucous membranes CARDIOVASCULAR: Regular rate and rhythm without murmurs, rubs or gallops. RESPIRATORY: Breath sounds equal bilaterally, no wheezes rales or rhonchi. ABDOMEN: Soft, nontender. Normoactive bowel sounds all 4 quadrants. No guarding or rebound. EXTREMITIES: Normal range of motion, no clubbing or edema. Neurovascularly intact NEUROLOGICAL: Alert and oriented x3. Strength equal in all extremities, good [id number], sensation intact, right-sided gaze slurring of speech SKIN: Warm, dry, no laceration, no petechiae, no rashes or lesions. Scores NIH Stroke Scale Level of Conciousness: Alert, keenly responsive Ask month/age: Answers both questions correctly. Open/close eyes, close hand: Performs both tasks correctly Best gaze horizontal: Normal Visual jaquez: No visual loss Facial palsy: Normal symetrical movement Left arm drift: No drift for full 10 sec Right arm drift: No drift for full 10 sec Left leg drift: No drift for full 5 sec Right leg drift: No drift for full 5 sec Limb ataxia: Absent Sensory on face/arms/legs: Normal, no sensory loss Best language: No aphasia, normal Dysarthria: Normal Extinction or inattention: No abnormality Total NIH Stroke scale score: 0 Course Orders Ordered: ED Orders 06/26/21 09:30 CT Stroke Stat COVID19 -Nasal RAPID/Pre-Proc Stat EKG-12 Lead Stat 06/26/21 09:45 BNP [NT-proBNP (BNP-Adult 18+)] Stat Blood Culture Stat Complete Blood Count AUTO DIFF Stat Comprehensive Metabolic Panel Stat D Dimer Stat Lactate (Lactic Acid) Stat Partial Thromboplastin Time Stat Procalcitonin Stat Prothrombin Time INR Stat Troponin & CK Cardiac Panel Stat 06/26/21 09:51 CT angio head and neck Stat 06/26/21 09:55 ABG [Arterial Blood Gas] Stat 06/26/21 10:10 Chest [XR chest 1V] Stat 06/26/21 10:35 Urinalysis and Microscopic Stat Urine Drug Screen, Rapid Stat 06/26/21 11:56 Lactate (Lactic Acid) Stat 06/26/21 12:14 XR chest for PICC 1V Stat 06/26/21 12:16 Type and Screen Stat 06/26/21 12:22 CT angio chest PE protocol Stat Sodium Chloride (Normal Saline 0.9%) 1,000 mls @ 150 mls/hr IV CONT PHANI Last Admin: 06/26/21 10:52 Dose: Not Given Documented by: ERNA Epinephrine HCl 1 mg/ Dextrose 251 mls @ 15.06 mls/hr IV TITRATE PHANI; Protocol Last Titration: 06/26/21 11:21 Dose: 0 mcg/min, 0 mls/hr Documented by: Titration: 06/26/21 10:40 Dose: 1 mcg/min, 15.06 mls/hr Documented by: Admin: 06/26/21 09:50 Dose: 2 mcg/min, 30.12 mls/hr Documented by: ERNA Sodium Chloride (Normal Saline 0.9%) 1,000 mls @ 125 mls/hr IV CONT PHANI Last Admin: 06/26/21 10:53 Dose: 125 mls/hr Documented by: ERNA Discontinued Medications Apixaban (Apixaban 5 Mg Tablet) 5 mg PO NOW ONE Stop: 06/26/21 13:11 Last Admin: 06/26/21 13:32 Dose: 5 mg Documented by: ERNA Apixaban (Apixaban 5 Mg Tablet) 5 mg PO NOW ONE Stop: 06/26/21 13:54 Last Admin: 06/26/21 14:35 Dose: 5 mg Documented by: ERNA Baclofen (Baclofen 10 Mg Tablet) 10 mg PO NOW ONE Stop: 06/26/21 13:55 Last Admin: 06/26/21 14:35 Dose: 10 mg Documented by: ERNA Carbidopa/Levodopa (Carbidopa-Levodopa 25/100 Tablet) 2 each PO NOW ONE Stop: 06/26/21 13:54 Last Admin: 06/26/21 14:35 Dose: 2 each Documented by: ERNA Sodium Chloride 9 ml/ (Epinephrine HCl 0.1 mg) 0 ml IV NOW ONE Stop: 06/26/21 10:54 Last Admin: 06/26/21 09:50 Dose: 1 ml Documented by: ERNA Dronabinol (Dronabinol 2.5 Mg Capsule) 2.5 mg PO NOW ONE Stop: 06/26/21 13:56 Last Admin: 06/26/21 14:35 Dose: 2.5 mg Documented by: ERNA Sodium Chloride (Normal Saline 0.9%) 3,000 mls @ 1,000 mls/hr IV BOLUS ONE Stop: 06/26/21 13:09 Last Infusion: 06/26/21 10:52 Dose: 0 mls/hr Documented by: Admin: 06/26/21 09:30 Dose: 1,000 mls/hr Documented by: ERNA Piperacillin Sod/Tazobactam (Sod 4.5 gm/ Sodium Chloride) 100 mls @ 200 mls/hr IV NOW ONE Stop: 06/26/21 11:34 Last Infusion: 06/26/21 13:07 Dose: 0 mls/hr Documented by: Admin: 06/26/21 12:28 Dose: 200 mls/hr Documented by: ERNA Vancomycin HCl (Vancomycin) 1,000 mg in 200 mls @ 200 mls/hr IV NOW ONE Stop: 06/26/21 12:32 Last Infusion: 06/26/21 13:39 Dose: 0 mls/hr Documented by: ERNA Lemon: 06/26/21 12:36 Dose: 200 mls/hr Documented by: ERNA Vital Signs Vital signs: Vital Signs - 8 hr 06/26/21 10:30 06/26/21 10:35 06/26/21 10:40 Temperature Pulse Rate 116 H 118 H 116 H Respiratory Rate 51 H 41 H 43 H Blood Pressure 118/57 L 115/55 L 112/55 L Pulse Oximetry 99 99 99 06/26/21 10:45 06/26/21 10:50 06/26/21 10:55 Temperature Pulse Rate 115 H 113 H 107 H Respiratory Rate 46 H 48 H 39 H Blood Pressure 98/51 L 103/57 L 99/51 L Pulse Oximetry 100 100 100 06/26/21 11:00 06/26/21 11:05 06/26/21 11:10 Temperature Pulse Rate 107 H 107 H 108 H Respiratory Rate 33 H 45 H 35 H Blood Pressure 120/58 L 118/55 L 112/56 L Pulse Oximetry 100 100 100 06/26/21 11:15 06/26/21 11:20 06/26/21 11:25 Temperature Pulse Rate 108 H 104 H 103 H Respiratory Rate 27 H 27 H 25 H Blood Pressure 118/61 114/60 111/56 L Pulse Oximetry 100 100 100 06/26/21 11:30 06/26/21 11:35 06/26/21 11:40 Temperature Pulse Rate 96 H 92 H 92 H Respiratory Rate 21 17 21 Blood Pressure 109/56 L 114/65 121/70 Pulse Oximetry 100 100 100 06/26/21 11:54 06/26/21 11:55 06/26/21 12:00 Temperature Pulse Rate 100 H Respiratory Rate 37 H Blood Pressure 132/72 124/67 144/64 H Pulse Oximetry 93 06/26/21 12:05 06/26/21 12:10 06/26/21 12:15 Temperature Pulse Rate 97 H 97 H 95 H Respiratory Rate 42 H 32 H 30 H Blood Pressure 134/63 126/75 126/70 Pulse Oximetry 99 99 99 06/26/21 12:20 06/26/21 12:25 06/26/21 12:30 Temperature Pulse Rate 95 H 95 H 93 H Respiratory Rate 32 H 28 H 37 H Blood Pressure 129/75 127/70 128/67 Pulse Oximetry 99 99 99 06/26/21 12:35 06/26/21 12:40 06/26/21 12:45 Temperature Pulse Rate 92 H 91 H 91 H Respiratory Rate 25 H 32 H 22 Blood Pressure 137/63 136/63 136/63 Pulse Oximetry 100 100 99 06/26/21 12:50 06/26/21 12:55 06/26/21 13:00 Temperature Pulse Rate 90 87 89 Respiratory Rate 18 24 22 Blood Pressure 122/56 L 128/61 Pulse Oximetry 100 98 96 06/26/21 13:05 06/26/21 13:10 06/26/21 13:15 Temperature Pulse Rate 88 86 88 Respiratory Rate 29 H 32 H 27 H Blood Pressure 127/60 125/60 126/61 Pulse Oximetry 96 97 97 06/26/21 13:20 06/26/21 13:25 06/26/21 13:30 Temperature Pulse Rate 86 88 87 Respiratory Rate 28 H 28 H 31 H Blood Pressure 126/60 124/62 126/58 L Pulse Oximetry 98 97 97 06/26/21 13:35 06/26/21 13:40 06/26/21 13:45 Temperature Pulse Rate 89 90 87 Respiratory Rate 34 H 26 H 26 H Blood Pressure 123/70 120/67 123/61 Pulse Oximetry 96 96 98 06/26/21 13:50 06/26/21 13:55 06/26/21 14:00 Temperature Pulse Rate 85 87 90 Respiratory Rate 29 H 30 H 31 H Blood Pressure 120/60 127/59 L 125/60 Pulse Oximetry 98 96 96 06/26/21 14:05 06/26/21 14:10 06/26/21 14:15 Temperature Pulse Rate 87 87 87 Respiratory Rate 30 H 29 H 33 H Blood Pressure 132/61 126/61 129/61 Pulse Oximetry 98 97 96 06/26/21 14:20 06/26/21 14:25 06/26/21 14:30 Temperature Pulse Rate 87 88 Respiratory Rate 29 H 22 Blood Pressure 134/63 107/53 L 132/60 Pulse Oximetry 97 97 06/26/21 15:00 06/26/21 15:30 06/26/21 16:00 Temperature Pulse Rate 85 82 83 Respiratory Rate 32 H 30 H 29 H Blood Pressure 131/62 129/70 127/60 Pulse Oximetry 97 96 97 06/26/21 16:30 06/26/21 17:00 06/26/21 17:30 Temperature Pulse Rate 80 72 77 Respiratory Rate 24 10 L 23 Blood Pressure 121/68 118/56 L 128/69 Pulse Oximetry 96 96 96 06/26/21 18:00 06/26/21 18:14 Temperature 97.7 F Pulse Rate 80 Respiratory Rate Blood Pressure 129/72 Pulse Oximetry 96 MDM - Neuro Symptoms/Deficit Lab Data Result diagrams: 06/26/21 09:45 06/26/21 09:45 Labs: Lab Results 06/26/21 06/26/21 06/26/21 Range/Units 09:30 09:45 09:45 WBC 6.3 (4.5-11.0) X10^3/uL RBC 4.14 L (4.5-5.9) X10^6/uL Hgb 12.9 L (13.5-17.5) g/dL Hct 38.7 L (41-53) % MCV 93.4 (80-100) fL MCH 31.2 (26-34) PG MCHC 33.4 (30-36) % RDW 15.2 H (11.6-14.8) % Plt Count 116 L (150-400) X10^3/uL Neut % (Auto) 51.3 (50-75) % Lymph % (Auto) 42.6 H (25-40) % [place] % (Auto) 5.0 (3-14) % Eos % (Auto) 0.3 L (2-4) % Baso % (Auto) 0.8 (0-2) % Neut # (Auto) 3200 (5562-8531) /uL Lymph # (Auto) 2700 (6997-5793) /uL [place] # (Auto) 300 (0-900) /uL Eos # (Auto) 0 (0-450) /uL Baso # (Auto) 100 (0-100) /uL PT 12.2 (10.1-12.7) SECONDS INR 1.1 (0.9-1.3) APTT 23 L D (26.4-36.2) SECONDS D-Dimer (<230) ng/mL ABG pH (7.35-7.45) ABG pCO2 (35-45) mmHg ABG pO2 (80-100) mmHg ABG HCO3 (22-26) mmol/L ABG Total CO2 (21-31) mmol/L ABG O2 Saturation (95-100) % ABG Base Excess (-2-2) mmol/L FiO2 Sodium (137-145) mmol/L Potassium (3.4-5.1) mmol/L Chloride (98-107) mmol/L Carbon Dioxide (22-32) mmol/L BUN (9-20) mg/dL Creatinine (0.66-1.25) mg/dL Estimated GFR (>60) mL/min BUN/Creatinine Ratio (6-22) Glucose (80-110) mg/dL Lactate (0.7-2.1) mmol/L Calcium (8.4-10.2) mg/dL Total Bilirubin (0.2-1.3) mg/dL AST (17-59) IU/L ALT (<50) IU/L Alkaline Phosphatase (38-126) U/L Total Creatine Kinase (55-170) U/L CK-MB (CK-2) CK-MB (CK-2) Rel Index Troponin I (0.01-0.034) ng/mL NT-Pro-B Natriuret Pep (<450) pg/mL Total Protein (6.3-8.2) g/dL Albumin (3.5-5.0) g/dL Globulin (1.7-4.1) g/dL Albumin/Globulin Ratio (1.0-2.8) Procalcitonin (<0.5) ng/mL Urine Color Urine Appearance Urine pH (4.5-8.0) Ur Specific [place] (1.000-1.035) Urine Protein (Negative) Urine Glucose (UA) (Negative) g/dL Urine Ketones (NEGATIVE) Urine Occult Blood (Negative) Urine Nitrate (Negative) Urine Bilirubin (NEGATIVE) Urine Urobilinogen (0.2) E.U./dL Ur Leukocyte Esterase (NEGATIVE) Urine RBC (0-5/HPF) Urine WBC (0-5/HPF) Ur Squamous Epith Cells (0-5/HPF) Calcium Oxalate Crystal Urine Bacteria (None) Ur Culture Indicated? U Opiates 300ng/mL cut (Negative) Ur Oxycodone Screen (Negative) Urine Methadone Screen (Negative) Ur Barbiturates Screen (Negative) U Tricyclic Antidepress (Negative) Ur Phencyclidine Scrn (Negative) Ur Amphetamines Screen (Negative) U Methamphetamines Scrn (Negative) Ur MDMA Scrn (Ecstasy) (Negative) U Benzodiazepines Scrn (Negative) Urine Cocaine Screen (Negative) U Marijuana (THC) Screen (Negative) SARS-CoV-2 (PCR) Negative (Negative) Blood Type Antibody Screen 06/26/21 06/26/21 06/26/21 Range/Units 09:45 09:45 09:45 WBC (4.5-11.0) X10^3/uL RBC (4.5-5.9) X10^6/uL Hgb (13.5-17.5) g/dL Hct (41-53) % MCV (80-100) fL MCH (26-34) PG MCHC (30-36) % RDW (11.6-14.8) % Plt Count (150-400) X10^3/uL Neut % (Auto) (50-75) % Lymph % (Auto) (25-40) % [place] % (Auto) (3-14) % Eos % (Auto) (2-4) % Baso % (Auto) (0-2) % Neut # (Auto) (0405-9939) /uL Lymph # (Auto) (1445-3236) /uL [place] # (Auto) (0-900) /uL Eos # (Auto) (0-450) /uL Baso # (Auto) (0-100) /uL PT (10.1-12.7) SECONDS INR (0.9-1.3) APTT (26.4-36.2) SECONDS D-Dimer (<230) ng/mL ABG pH (7.35-7.45) ABG pCO2 (35-45) mmHg ABG pO2 (80-100) mmHg ABG HCO3 (22-26) mmol/L ABG Total CO2 (21-31) mmol/L ABG O2 Saturation (95-100) % ABG Base Excess (-2-2) mmol/L FiO2 Sodium 142 (137-145) mmol/L Potassium 3.8 (3.4-5.1) mmol/L Chloride 107 (98-107) mmol/L Carbon Dioxide 30 (22-32) mmol/L BUN 34 H (9-20) mg/dL Creatinine 0.84 (0.66-1.25) mg/dL Estimated GFR > 60 (>60) mL/min BUN/Creatinine Ratio 40.5 H (6-22) Glucose 128 H (80-110) mg/dL Lactate 3.1 H (0.7-2.1) mmol/L Calcium 8.8 (8.4-10.2) mg/dL Total Bilirubin 0.9 (0.2-1.3) mg/dL AST 20 (17-59) IU/L ALT 7 (<50) IU/L Alkaline Phosphatase 32 L (38-126) U/L Total Creatine Kinase < 20 L (55-170) U/L CK-MB (CK-2) TNP CK-MB (CK-2) Rel Index TNP Troponin I 0.015 (0.01-0.034) ng/mL NT-Pro-B Natriuret Pep (<450) pg/mL Total Protein 5.2 L (6.3-8.2) g/dL Albumin 3.1 L (3.5-5.0) g/dL Globulin 2.1 (1.7-4.1) g/dL Albumin/Globulin Ratio 1.5 (1.0-2.8) Procalcitonin 0.05 (<0.5) ng/mL Urine Color Urine Appearance Urine pH (4.5-8.0) Ur Specific [place] (1.000-1.035) Urine Protein (Negative) Urine Glucose (UA) (Negative) g/dL Urine Ketones (NEGATIVE) Urine Occult Blood (Negative) Urine Nitrate (Negative) Urine Bilirubin (NEGATIVE) Urine Urobilinogen (0.2) E.U./dL Ur Leukocyte Esterase (NEGATIVE) Urine RBC (0-5/HPF) Urine WBC (0-5/HPF) Ur Squamous Epith Cells (0-5/HPF) Calcium Oxalate Crystal Urine Bacteria (None) Ur Culture Indicated? U Opiates 300ng/mL cut (Negative) Ur Oxycodone Screen (Negative) Urine Methadone Screen (Negative) Ur Barbiturates Screen (Negative) U Tricyclic Antidepress (Negative) Ur Phencyclidine Scrn (Negative) Ur Amphetamines Screen (Negative) U Methamphetamines Scrn (Negative) Ur MDMA Scrn (Ecstasy) (Negative) U Benzodiazepines Scrn (Negative) Urine Cocaine Screen (Negative) U Marijuana (THC) Screen (Negative) SARS-CoV-2 (PCR) (Negative) Blood Type Antibody Screen 06/26/21 06/26/21 06/26/21 Range/Units 09:45 09:45 09:55 WBC (4.5-11.0) X10^3/uL RBC (4.5-5.9) X10^6/uL Hgb (13.5-17.5) g/dL Hct (41-53) % MCV (80-100) fL MCH (26-34) PG MCHC (30-36) % RDW (11.6-14.8) % Plt Count (150-400) X10^3/uL Neut % (Auto) (50-75) % Lymph % (Auto) (25-40) % [place] % (Auto) (3-14) % Eos % (Auto) (2-4) % Baso % (Auto) (0-2) % Neut # (Auto) (9030-2294) /uL Lymph # (Auto) (1764-5788) /uL [place] # (Auto) (0-900) /uL Eos # (Auto) (0-450) /uL Baso # (Auto) (0-100) /uL PT (10.1-12.7) SECONDS INR (0.9-1.3) APTT (26.4-36.2) SECONDS D-Dimer 965 H (<230) ng/mL ABG pH 7.25 L* (7.35-7.45) ABG pCO2 70.4 H* (35-45) mmHg ABG pO2 131 H (80-100) mmHg ABG HCO3 31 H (22-26) mmol/L ABG Total CO2 33 H (21-31) mmol/L ABG O2 Saturation 98 (95-100) % ABG Base Excess 4.0 H (-2-2) mmol/L FiO2 44 Sodium (137-145) mmol/L Potassium (3.4-5.1) mmol/L Chloride (98-107) mmol/L Carbon Dioxide (22-32) mmol/L BUN (9-20) mg/dL Creatinine (0.66-1.25) mg/dL Estimated GFR (>60) mL/min BUN/Creatinine Ratio (6-22) Glucose (80-110) mg/dL Lactate (0.7-2.1) mmol/L Calcium (8.4-10.2) mg/dL Total Bilirubin (0.2-1.3) mg/dL AST (17-59) IU/L ALT (<50) IU/L Alkaline Phosphatase (38-126) U/L Total Creatine Kinase (55-170) U/L CK-MB (CK-2) CK-MB (CK-2) Rel Index Troponin I (0.01-0.034) ng/mL NT-Pro-B Natriuret Pep 489 H (<450) pg/mL Total Protein (6.3-8.2) g/dL Albumin (3.5-5.0) g/dL Globulin (1.7-4.1) g/dL Albumin/Globulin Ratio (1.0-2.8) Procalcitonin (<0.5) ng/mL Urine Color Urine Appearance Urine pH (4.5-8.0) Ur Specific [place] (1.000-1.035) Urine Protein (Negative) Urine Glucose (UA) (Negative) g/dL Urine Ketones (NEGATIVE) Urine Occult Blood (Negative) Urine Nitrate (Negative) Urine Bilirubin (NEGATIVE) Urine Urobilinogen (0.2) E.U./dL Ur Leukocyte Esterase (NEGATIVE) Urine RBC (0-5/HPF) Urine WBC (0-5/HPF) Ur Squamous Epith Cells (0-5/HPF) Calcium Oxalate Crystal Urine Bacteria (None) Ur Culture Indicated? U Opiates 300ng/mL cut (Negative) Ur Oxycodone Screen (Negative) Urine Methadone Screen (Negative) Ur Barbiturates Screen (Negative) U Tricyclic Antidepress (Negative) Ur Phencyclidine Scrn (Negative) Ur Amphetamines Screen (Negative) U Methamphetamines Scrn (Negative) Ur MDMA Scrn (Ecstasy) (Negative) U Benzodiazepines Scrn (Negative) Urine Cocaine Screen (Negative) U Marijuana (THC) Screen (Negative) SARS-CoV-2 (PCR) (Negative) Blood Type Antibody Screen 06/26/21 06/26/21 06/26/21 Range/Units 10:35 10:35 11:56 WBC (4.5-11.0) X10^3/uL RBC (4.5-5.9) X10^6/uL Hgb (13.5-17.5) g/dL Hct (41-53) % MCV (80-100) fL MCH (26-34) PG MCHC (30-36) % RDW (11.6-14.8) % Plt Count (150-400) X10^3/uL Neut % (Auto) (50-75) % Lymph % (Auto) (25-40) % [place] % (Auto) (3-14) % Eos % (Auto) (2-4) % Baso % (Auto) (0-2) % Neut # (Auto) (6370-8907) /uL Lymph # (Auto) (0267-2158) /uL [place] # (Auto) (0-900) /uL Eos # (Auto) (0-450) /uL Baso # (Auto) (0-100) /uL PT (10.1-12.7) SECONDS INR (0.9-1.3) APTT (26.4-36.2) SECONDS D-Dimer (<230) ng/mL ABG pH (7.35-7.45) ABG pCO2 (35-45) mmHg ABG pO2 (80-100) mmHg ABG HCO3 (22-26) mmol/L ABG Total CO2 (21-31) mmol/L ABG O2 Saturation (95-100) % ABG Base Excess (-2-2) mmol/L FiO2 Sodium (137-145) mmol/L Potassium (3.4-5.1) mmol/L Chloride (98-107) mmol/L Carbon Dioxide (22-32) mmol/L BUN (9-20) mg/dL Creatinine (0.66-1.25) mg/dL Estimated GFR (>60) mL/min BUN/Creatinine Ratio (6-22) Glucose (80-110) mg/dL Lactate 1.4 (0.7-2.1) mmol/L Calcium (8.4-10.2) mg/dL Total Bilirubin (0.2-1.3) mg/dL AST (17-59) IU/L ALT (<50) IU/L Alkaline Phosphatase (38-126) U/L Total Creatine Kinase (55-170) U/L CK-MB (CK-2) CK-MB (CK-2) Rel Index Troponin I (0.01-0.034) ng/mL NT-Pro-B Natriuret Pep (<450) pg/mL Total Protein (6.3-8.2) g/dL Albumin (3.5-5.0) g/dL Globulin (1.7-4.1) g/dL Albumin/Globulin Ratio (1.0-2.8) Procalcitonin (<0.5) ng/mL Urine Color Yellow Urine Appearance Sl cloudy Urine pH 5.5 (4.5-8.0) Ur Specific [place] 1.020 (1.000-1.035) Urine Protein Trace H (Negative) Urine Glucose (UA) Negative (Negative) g/dL Urine Ketones Trace H (NEGATIVE) Urine Occult Blood Negative (Negative) Urine Nitrate Negative (Negative) Urine Bilirubin Negative (NEGATIVE) Urine Urobilinogen 0.2 (0.2) E.U./dL Ur Leukocyte Esterase Negative (NEGATIVE) Urine RBC 1-5/hpf (0-5/HPF) Urine WBC None seen (0-5/HPF) Ur Squamous Epith Cells 0-1 /hpf (0-5/HPF) Calcium Oxalate Crystal Occasional H Urine Bacteria None seen (None) Ur Culture Indicated? Cult not indicated U Opiates 300ng/mL cut Negative (Negative) Ur Oxycodone Screen Negative (Negative) Urine Methadone Screen Negative (Negative) Ur Barbiturates Screen Negative (Negative) U Tricyclic Antidepress Negative (Negative) Ur Phencyclidine Scrn Negative (Negative) Ur Amphetamines Screen Negative (Negative) U Methamphetamines Scrn Negative (Negative) Ur MDMA Scrn (Ecstasy) Negative (Negative) U Benzodiazepines Scrn Negative (Negative) Urine Cocaine Screen Negative (Negative) U Marijuana (THC) Screen Positive H (Negative) SARS-CoV-2 (PCR) (Negative) Blood Type Antibody Screen 06/26/21 Range/Units 12:16 WBC (4.5-11.0) X10^3/uL RBC (4.5-5.9) X10^6/uL Hgb (13.5-17.5) g/dL Hct (41-53) % MCV (80-100) fL MCH (26-34) PG MCHC (30-36) % RDW (11.6-14.8) % Plt Count (150-400) X10^3/uL Neut % (Auto) (50-75) % Lymph % (Auto) (25-40) % [place] % (Auto) (3-14) % Eos % (Auto) (2-4) % Baso % (Auto) (0-2) % Neut # (Auto) (5951-6660) /uL Lymph # (Auto) (2922-3956) /uL [place] # (Auto) (0-900) /uL Eos # (Auto) (0-450) /uL Baso # (Auto) (0-100) /uL PT (10.1-12.7) SECONDS INR (0.9-1.3) APTT (26.4-36.2) SECONDS D-Dimer (<230) ng/mL ABG pH (7.35-7.45) ABG pCO2 (35-45) mmHg ABG pO2 (80-100) mmHg ABG HCO3 (22-26) mmol/L ABG Total CO2 (21-31) mmol/L ABG O2 Saturation (95-100) % ABG Base Excess (-2-2) mmol/L FiO2 Sodium (137-145) mmol/L Potassium (3.4-5.1) mmol/L Chloride (98-107) mmol/L Carbon Dioxide (22-32) mmol/L BUN (9-20) mg/dL Creatinine (0.66-1.25) mg/dL Estimated GFR (>60) mL/min BUN/Creatinine Ratio (6-22) Glucose (80-110) mg/dL Lactate (0.7-2.1) mmol/L Calcium (8.4-10.2) mg/dL Total Bilirubin (0.2-1.3) mg/dL AST (17-59) IU/L ALT (<50) IU/L Alkaline Phosphatase (38-126) U/L Total Creatine Kinase (55-170) U/L CK-MB (CK-2) CK-MB (CK-2) Rel Index Troponin I (0.01-0.034) ng/mL NT-Pro-B Natriuret Pep (<450) pg/mL Total Protein (6.3-8.2) g/dL Albumin (3.5-5.0) g/dL Globulin (1.7-4.1) g/dL Albumin/Globulin Ratio (1.0-2.8) Procalcitonin (<0.5) ng/mL Urine Color Urine Appearance Urine pH (4.5-8.0) Ur Specific [place] (1.000-1.035) Urine Protein (Negative) Urine Glucose (UA) (Negative) g/dL Urine Ketones (NEGATIVE) Urine Occult Blood (Negative) Urine Nitrate (Negative) Urine Bilirubin (NEGATIVE) Urine Urobilinogen (0.2) E.U./dL Ur Leukocyte Esterase (NEGATIVE) Urine RBC (0-5/HPF) Urine WBC (0-5/HPF) Ur Squamous Epith Cells (0-5/HPF) Calcium Oxalate Crystal Urine Bacteria (None) Ur Culture Indicated? U Opiates 300ng/mL cut (Negative) Ur Oxycodone Screen (Negative) Urine Methadone Screen (Negative) Ur Barbiturates Screen (Negative) U Tricyclic Antidepress (Negative) Ur Phencyclidine Scrn (Negative) Ur Amphetamines Screen (Negative) U Methamphetamines Scrn (Negative) Ur MDMA Scrn (Ecstasy) (Negative) U Benzodiazepines Scrn (Negative) Urine Cocaine Screen (Negative) U Marijuana (THC) Screen (Negative) SARS-CoV-2 (PCR) (Negative) Blood Type O Positive Antibody Screen Negative Imaging Data CT scan - head: Radiologist's Impression: Signed Patient: Binu Dominguez MR#: [id number] : 1940 Acct:[id number] Age/Sex: 81 / M Date of Service: 06/26/21 Loc: ED Accession Number: [id number] ?? Procedure: CT Stroke Ordering Provider: Larissa Rios D.O. PROCEDURE:? CT STROKE ? INDICATIONS:? right gaze ? TECHNIQUE:? Noncontrast 4.5 mm thick angled axial sections acquired from the foramen magnum to the vertex, with coronal reformats.? For radiation dose reduction, the following was used:? automated exposure control, adjustment of mA and/or kV according to patient size.? ? COMPARISON:? [facility], CT, CT STROKE, 09/13/2019, 23:30. ? FINDINGS:? Image quality:? Excellent.? ? CSF spaces:? Basal cisterns are patent.? No extra-axial fluid collections.? The ventricles are symmetric in size and shape.? ? Brain:? No intracranial bleeds or masses.? Left basal ganglia hyperdensities are unchanged, likely calcifications.? There is cerebral volume loss for age, with resultant ventricular and sulcal prominence.? There are periventricular and deep white matter chronic small vessel ischemic changes.? There is intracranial internal carotid artery atherosclerosis.? ? Skull and face:? Calvarium and visualized facial bones appear intact, without suspicious lesions.? ? Sinuses:? Visualized sinuses and mastoids are clear.? ? IMPRESSION:? 1. No acute intracranial abnormality. 2. Cerebral volume loss and small vessel ischemic changes.? ? Findings were discussed with the emergency department at 09:55 on 06/26/2021? ? This study fulfills neurological imaging criteria for inclusion or exclusion of acute stroke therapies based on available published neurological guidelines.? ? ? Dictated by: Clarke Bolton M.D. on 06/26/2021 at 9:54 ? ? Approved by: Clarke Bolton M.D. on 06/26/2021 at 9:58 ? CTA - brain/neck: Radiologist's Impression: CT Scan Report Signed Patient: Binu Dominguez MR#: [id number] : 1940 Acct:[id number] Age/Sex: 81 / M Date of Service: 06/26/21 Loc: ED Accession Number: [id number] ?? Procedure: CT angio head and neck Ordering Provider: Larissa Rios D.O. PROCEDURE:? CT ANGIO HEAD AND NECK ? INDICATIONS:? right gaze ? TECHNIQUE:? Noncontrast images were performed earlier in the day and not repeated.? ? After the administration of intravenous contrast, 1 mm thick sections acquired from the aortic arch through the [place].? Post-contrast 4.5 mm thick sections then re- acquired from the foramen magnum to the vertex.? 3-dimensional pllbmda-vuhnrgmvr-ninefplxcf (MIP) and/or volume rendering reformats were acquired of the central intracranial vasculature and neck separately. For radiation dose reduction, the following was used:? automated exposure control, adjustment of mA and/or kV according to patient size.? ? COMPARISON:? [facility], CT, CT STROKE, 09/13/2019, 23:30.? [facility], CT, CT STROKE, 06/26/2021, 9:38.? [facility], CT, CT ANGIO HEAD AND NECK, 09/13/2019, 23:30. ? FINDINGS:? Image quality:? Excellent.? ? BRAIN:? CSF spaces:? Ventricles are normal in size and shape.? Basal cisterns are patent.? No extra-axial fluid collections.? ? Brain:? No midline shift.? No intracranial bleeds or masses.? Colmenares-white matter interface appears intact.? ? Skull and face:? Calvarium and facial bones appear intact, without suspicious lesions.? Orbits appear normal.? ? Sinuses:? Sinuses and mastoids are clear.? ? HEAD CT ANGIOGRAPHY:? Anterior circulation:? Intracranial internal carotid arteries demonstrate atherosclerotic calcification, with approximately 30% stenosis on each side.? The flow within the paired anterior cerebral arteries is normal and symmetric.? The flow within the middle cerebral arteries is normal and symmetric.? A fenestrated anterior communicating artery is seen.? No aneurysms are seen.? ? Posterior circulation:? Visualized portions of the vertebral arteries demonstrate normal caliber, and join to form a normal appearing basilar artery.? Flow within the posterior cerebral arteries is normal and symmetric.? No aneurysms are seen.? ? NECK CT ANGIOGRAPHY:? Carotid system:? The great vessels demonstrate a conventional anatomy as they arise from the aortic arch.? The origins of the common carotid arteries appear patent.? The common carotid arteries demonstrate normal caliber and courses.? The bifurcation regions demonstrate mild atherosclerotic calcification and irregularity, without focal narrowing. ?The internal carotid arteries demonstrate normal calibers and courses.? ? Posterior circulation:? The origins of the vertebral arteries both appear widely patent.? The more superior extracranial portions of both vertebral arteries also demonstrate normal courses and calibers.? They join to form a normal appearing basilar artery.? ? Soft tissues:? Visualized neck soft tissues demonstrate no suspicious abnormalities.? ? Bones:? No suspicious bony lesions.? Visualized cervical spine appears normally aligned.? Cervical spine degenerative changes are seen, which are most prominent at the C6-C7 level, there is moderate disc space narrowing.? Sternotomy wires are partially seen. ? ? ? IMPRESSION:? No significant intracranial arterial abnormality is seen.? ? Within the arteries of the neck, no hemodynamically significant stenosis can be seen. ? ? If there is strong clinical suspicion for an acute stroke, please consider a brain MRI for further evaluation, as it is more sensitive (assuming that there is no contraindication to MRI). ? ? ? Incidental note is made of: Focal C6-C7 degenerative change Sternotomy wires ? Any quantitative measurements of stenosis were performed using NASCET criteria.? ? ? Dictated by: Juvenal Simons M.D. on 06/26/2021 at 9:00 ? ? Approved by: Juvenal Simons M.D. on 06/26/2021 at 9:04 CT scan - chest: Radiologist's Impression: Signed Patient: Binu Dominguez MR#: [id number] : 1940 Acct:[id number] Age/Sex: 81 / M Date of Service: 06/26/21 Loc: ED Accession Number: [id number] ?? Procedure: CT angio chest PE protocol Ordering Provider: Larissa Rios D.O. PROCEDURE:? CT ANGIO CHEST PE PROTOCOL ? INDICATIONS:? hypoxia dimer, recent hospitalization ? TECHNIQUE:? After the administration of intravenous contrast, 2 mm thick sections acquired from the pulmonary apices to the posterior costophrenic angles.? 3-dimensional maximum intensity projection (MIP) coronal and sagittal reformats were then acquired through the thorax.? For radiation dose reduction, the following was used:? automated exposure control, adjustment of mA and/or kV according to patient size.? ? COMPARISON:? None. ? FINDINGS: Image quality:? Excellent.? ? Lungs and pleura:? A subtle area of nonspecific ground-glass opacity is noted within the right middle lobe laterally and right lower lobe posteriorly.? Otherwise no acute airspace opacity.? No pleural effusions or pneumothorax.? The trachea contains mucous posteriorly. ? Mediastinum:? Heart size is normal.? No pericardial effusion.? No mediastinal adenopathy by size criteria.? 2 right lower lobe subsegmental pulmonary arteries demonstrate central filling defects consistent with nonocclusive pulmonary arterial emboli.? Thoracic aorta and central pulmonary arteries are normal in size.? Esophagus is normal in caliber.? No hiatal hernia. ? Bones and chest wall:? Degenerative changes with no focal abnormality.? No vertebral body compression fractures.? No axillary or supraclavicular adenopathy by size criteria.? Thyroid gland is normal. ? Abdomen:? Limited visualization of the upper abdomen shows no acute abnormality.? Early arterial striated nephrogram is seen, nonspecific given this early arterial phase. ? IMPRESSION:? 2 subsegmental right lower lobe pulmonary arteries have nonocclusive pulmonary thrombus.? Peripherally in the right lower lobe and right middle lobe there are subtle areas of ground-glass opacity which could be areas of pulmonary infarction. ? Findings were discussed with Dr. Rios at 12:58 on 02/26/2021? ? ? Dictated by: Clarke Bolton M.D. on 06/26/2021 at 12:50 ? Chest x-ray: Radiologist's Impression: atient: Binu Dominguez MR#: [id number] : 1940 Acct:[id number] Age/Sex: 81 / M Date of Service: 06/26/21 Loc: ED Accession Number: [id number] ?? Procedure: XR chest 1V Ordering Provider: Larissa Rios D.O. PROCEDURE:? XR CHEST 1V ? INDICATIONS:? short of breath ? TECHNIQUE:? One view of the chest was acquired.? ? COMPARISON:? [facility], CR, XR CHEST 1V, 03/31/2021, 19:01.? [facility], CR, XR CHEST 1V, 03/03/2021, 3:29. ? FINDINGS:? ? Surgical changes and devices:? Pacer pads are noted.? The patient is status post median sternotomy. ? Lungs and pleura:? Lungs are clear.? No pleural effusions or pneumothorax.? ? Mediastinum:? Mediastinal contours appear normal.? Heart size is normal.? ? Bones and chest wall:? No suspicious bony lesions.? Overlying soft tissues appear unremarkable.? ? IMPRESSION:? 1. No acute cardiopulmonary abnormality. 2. Prior CABG. 3. Pacer pads are noted in place.? ? ? Dictated by: Clarke Bolton M.D. on 06/26/2021 at 10:37 ? ECG Data Interpretation: Sinus rhythm rate 107 DC interval 140 QRS 106 QTC 517 artifact noted MDM Narrative Medical decision making narrative: Code stroke initially called however patient hypotensive he actually was hypoxic as well. He did quite a bit of suctioning the. He was given IV fluids and epinephrine drip through peripheral until PICC line could be placed, blood pressure was actually quite variable as well. Patient's blood work surprisingly does not show many abnormalities. Initial lactate was 3.1 but that improved with fluids to 1.4. No obvious source of infection no he was covered for sepsis with Zosyn and vancomycin. D-dimer was found to be elevated with recent admission CT for PE did show small right pulmonary embolisms nonocclusive with questionable pulmonary infarct.. No saddle PE was found to explain hypotension and initial hypoxia. 9:51am Initial discussion with Dr. Lyon, neurologist at [facility]. At this time patient is not a candidate for tPA recommends treating blood pressure, if remains stable and still question stroke his may get MRI. Discussion with both and patient. Patient does seem to understand. Patient has advanced healthcare directive states that he would not want life- sustaining procedures if you are found to be terminal or few were permanently unconscious by 2 separate physicians. We discussed goals of care realistic expectations. New POLST form is filled out patient is DNR with limited intervention Patient admitted to Dr. Jamil for observation. Discharge Plan Departure Patient Disposition: Admitted as Observation Clinical Impression: Acute dehydration, Pulmonary embolism
[2021-06-26] MEDS: SODIUM CHLORIDE 0.9% FLUSH 9 ML, EPINEPHrine 0.1 MG IV (09:50)
[2021-06-26] MEDS: EPINEPHrine 1 MG in DEXTROSE 5% IN WATER 250 ML 30.12 ML IV (09:50)
--- NOTE | 2021-06-26 09:51 | DI.CT.S_ITS ---
PROCEDURE: CT ANGIO HEAD AND NECK INDICATIONS: right gaze TECHNIQUE: Noncontrast images were performed earlier in the day and not repeated. After the administration of intravenous contrast, 1 mm thick sections acquired from the aortic arch through the [place]. Post-contrast 4.5 mm thick sections then re-acquired from the foramen magnum to the vertex. 3-dimensional prsgrjj-isqnmtwrb-qzlkpwlnnx (MIP) and/or volume rendering reformats were acquired of the central intracranial vasculature and neck separately. For radiation dose reduction, the following was used: automated exposure control, adjustment of mA and/or kV according to patient size. COMPARISON: [facility], CT, CT STROKE, 09/13/2019, 23:30. [facility], CT, CT STROKE, 06/26/2021, 9:38. [facility], CT, CT ANGIO HEAD AND NECK, 09/13/2019, 23:30. FINDINGS: Image quality: Excellent. BRAIN: CSF spaces: Ventricles are normal in size and shape. Basal cisterns are patent. No extra-axial fluid collections. Brain: No midline shift. No intracranial bleeds or masses. Colmenares-white matter interface appears intact. Skull and face: Calvarium and facial bones appear intact, without suspicious lesions. Orbits appear normal. Sinuses: Sinuses and mastoids are clear. HEAD CT ANGIOGRAPHY: Anterior circulation: Intracranial internal carotid arteries demonstrate atherosclerotic calcification, with approximately 30% stenosis on each side. The flow within the paired anterior cerebral arteries is normal and symmetric. The flow within the middle cerebral arteries is normal and symmetric. A fenestrated anterior communicating artery is seen. No aneurysms are seen. Posterior circulation: Visualized portions of the vertebral arteries demonstrate normal caliber, and join to form a normal appearing basilar artery. Flow within the posterior cerebral arteries is normal and symmetric. No aneurysms are seen. NECK CT ANGIOGRAPHY: Carotid system: The great vessels demonstrate a conventional anatomy as they arise from the aortic arch. The origins of the common carotid arteries appear patent. The common carotid arteries demonstrate normal caliber and courses. The bifurcation regions demonstrate mild atherosclerotic calcification and irregularity, without focal narrowing. The internal carotid arteries demonstrate normal calibers and courses. Posterior circulation: The origins of the vertebral arteries both appear widely patent. The more superior extracranial portions of both vertebral arteries also demonstrate normal courses and calibers. They join to form a normal appearing basilar artery. Soft tissues: Visualized neck soft tissues demonstrate no suspicious abnormalities. Bones: No suspicious bony lesions. Visualized cervical spine appears normally aligned. Cervical spine degenerative changes are seen, which are most prominent at the C6-C7 level, there is moderate disc space narrowing. Sternotomy wires are partially seen. IMPRESSION: No significant intracranial arterial abnormality is seen. Within the arteries of the neck, no hemodynamically significant stenosis can be seen. If there is strong clinical suspicion for an acute stroke, please consider a brain MRI for further evaluation, as it is more sensitive (assuming that there is no contraindication to MRI). Incidental note is made of: Focal C6-C7 degenerative change Sternotomy wires Any quantitative measurements of stenosis were performed using NASCET criteria. Dictated by: Juvenal Simons M.D. on 06/26/2021 at 9:00 Approved by: Juvenal Simons M.D. on 06/26/2021 at 9:04
[2021-06-26 09:53] LABS: COVID19 -Nasal RAPID Negative (Negative)
[2021-06-26 09:54] LABS: Add Manual Diff / Slide Review NO; Basophils Absolute Auto 100 /uL (0-100); Basophils Percent Auto 0.8 % (0-2); Eosinophils Absolute Auto 0 /uL (0-450); Eosinophils Percent Auto 0.3 % (2-4); Hematocrit 38.7 % (41-53); Hemoglobin 12.9 g/dL (13.5-17.5); Lymphocytes Absolute Auto 2700 /uL (1100-4500); Lymphocytes Percent Auto 42.6 % (25-40); Mean Corpuscular HGB Conc 33.4 % (30-36); Mean Corpuscular Hemoglobin 31.2 PG (26-34); Mean Corpuscular Volume 93.4 fL (80-100); Monocytes Absolute Auto 300 /uL (0-900); Neutrophils Absolute Auto 3200 /uL (1500-7000); Neutrophils Percent Auto 51.3 % (50-75); Platelet Count 116 X10^3/uL (150-400); Red Blood Cell Count 4.14 X10^6/uL (4.5-5.9); Red Cell Distribution Width 15.2 % (11.6-14.8); White Blood Cell Count 6.3 X10^3/uL (4.5-11.0)
[2021-06-26 10:02] LABS: INR 1.1 (0.9-1.3); Prothrombin Time 12.2 SECONDS (10.1-12.7)
[2021-06-26 10:05] LABS: PTT Partial Thromboplastin Tim 23 SECONDS (26.4-36.2)
[2021-06-26 10:06] LABS: Alanine Aminotransferase 7 IU/L (<50); Albumin 3.1 g/dL (3.5-5.0); Albumin Globulin Ratio 1.5 (1.0-2.8); Alkaline Phosphatase 32 U/L (38-126); Aspartate Aminotransferase 20 IU/L (17-59); BUN Creatinine Ratio 40.5 (6-22); Bilirubin Total 0.9 mg/dL (0.2-1.3); Blood Urea Nitrogen 34 mg/dL (9-20); Calcium 8.8 mg/dL (8.4-10.2); Carbon Dioxide 30 mmol/L (22-32); Chloride 107 mmol/L (98-107); Creatine Kinase < 20 U/L (55-170); Estimated Glomerular Filt Rate > 60 mL/min (>60); Globulin 2.1 g/dL (1.7-4.1); Glucose 128 mg/dL (80-110); HEMOLYSIS 28 (0-50); Potassium 3.8 mmol/L (3.4-5.1); Sodium 142 mmol/L (137-145); Total Protein 5.2 g/dL (6.3-8.2)
--- NOTE | 2021-06-26 10:10 | DI.RAD.S_ITS ---
PROCEDURE: XR CHEST 1V INDICATIONS: short of breath TECHNIQUE: One view of the chest was acquired. COMPARISON: [facility], CR, XR CHEST 1V, 03/31/2021, 19:01. [facility], CR, XR CHEST 1V, 03/03/2021, 3:29. FINDINGS: Surgical changes and devices: Pacer pads are noted. The patient is status post median sternotomy. Lungs and pleura: Lungs are clear. No pleural effusions or pneumothorax. Mediastinum: Mediastinal contours appear normal. Heart size is normal. Bones and chest wall: No suspicious bony lesions. Overlying soft tissues appear unremarkable. IMPRESSION: 1. No acute cardiopulmonary abnormality. 2. Prior CABG. 3. Pacer pads are noted in place. Dictated by: Clarke Bolton M.D. on 06/26/2021 at 10:37 Approved by: Clarke Bolton M.D. on 06/26/2021 at 10:39
[2021-06-26 10:18] LABS: Troponin I 0.015 ng/mL (0.01-0.034)
[2021-06-26 10:19] LABS: HCO3 ABG 31 mmol/L (22-26); PCO2 ABG 70.4 mmHg (35-45); PO2 ABG 131 mmHg (80-100); TCO2 ABG 33 mmol/L (21-31); pH ABG 7.25 (7.35-7.45)
[2021-06-26 10:20] LABS: Fractionated Inspired Oxygen 44; Oxygen Saturation ABG 98 % (95-100)
[2021-06-26 10:51] LABS: Appearance Urine UA SL CLOUDY; Bilirubin Urine UA NEGATIVE (NEGATIVE); Color Urine UA YELLOW; Glucose Urine UA NEGATIVE (Negative); Ketones Urine UA TRACE (NEGATIVE); Leukocyte Esterase Urine UA NEGATIVE (NEGATIVE); Nitrite Urine UA NEGATIVE (Negative); Occult Blood Urine UA NEGATIVE (Negative); Protein Urine UA TRACE (Negative); Urobilinogen Urine UA 0.2 E.U./dL (0.2); pH Urine UA 5.5 (4.5-8.0)
[2021-06-26] MEDS: SODIUM CHLORIDE 0.9% 1,000 ML 125 ML IV ×2 (10:53→20:52)
[2021-06-26 11:12] LABS: Bacteria Urine None Seen; Calcium Oxalate Crystals Urine Occasional; Culture Indicated Urine Cult Not Indicated; RBC Urine 1-5/HPF (0-5/HPF); Squamous Epithelial Cell Urine 0-1 /HPF (0-5/HPF); WBC Urine None Seen (0-5/HPF)
[2021-06-26 11:18] LABS: UR Morphine/Opiate cutoff 300 Negative (Negative); Ur Creatinine Normal (Normal); Ur Specific Gravity Normal (Normal); Urine Amphetamines Negative (Negative); Urine Barbiturates Negative (Negative); Urine Benzodiazepines Negative (Negative); Urine Cocaine Negative (Negative); Urine MDMA Negative (Negative); Urine Methadone Negative (Negative); Urine Methamphetamines Negative (Negative); Urine Oxycodone Negative (Negative); Urine Phencyclidine Negative (Negative); Urine Tetrahydrocannabinol Positive (Negative); Urine Tricyclic Antidepressant Negative (Negative); Urine pH Normal (Normal)
[2021-06-26 11:30] LABS: D Dimer 965 ng/mL (<230); Lactate (Lactic Acid) 3.1 mmol/L (0.7-2.1)
--- NOTE | 2021-06-26 11:30 | PC.NURSE ---
Pt has severe Parkinson Disease. While preforming NIH tremors are noted and pt moves at a very slow speed but is able to do all the tasks and his strength is normal for pt her his who is at bedside. Pt can not smile but does not exhibit any detectable drooping. Drinking fluids well. A&Ox4
--- NOTE | 2021-06-26 11:35 | PC.NURSE ---
Pt has spoken with the and doctor and has declined being a FULL CODE and wishes not to be intubated or have CPR
[2021-06-26 11:41] LABS: NT-proBNP (BNP-Adult 18+) 489 pg/mL (<450)
[2021-06-26 11:49] LABS: Procalcitonin 0.05 ng/mL (<0.5)
--- NOTE | 2021-06-26 12:02 | PC.NURSE ---
ROGER Franklin at bedside to insert PICC
--- NOTE | 2021-06-26 12:09 | PC.NURSE ---
Delay on IV antbx d/t CTA and PICC placement
[2021-06-26 12:14] LABS: Lactate (Lactic Acid) 1.4 mmol/L (0.7-2.1)
--- NOTE | 2021-06-26 12:14 | DI.RAD.S_ITS ---
PROCEDURE: XR CHEST FOR PICC 1V INDICATIONS: line placement COMPARISON: [facility], CR, XR CHEST 1V, 06/26/2021, 10:13. [facility], CR, XR CHEST 1V, 03/31/2021, 19:01. FINDINGS: A single view of the chest shows no focal consolidation or mass. No pneumothorax or pleural effusion. The patient is status post median sternotomy. Pacer pads are noted. PICC was placed by the intravenous therapy team from the left side. Fluoroscopic spot film demonstrates the tip of PICC projecting to the area of SVC. IMPRESSION: Tip of PICC projects to the area of SVC. Dictated by: Clarke Bolton M.D. on 06/26/2021 at 12:49 Approved by: Clarke Bolton M.D. on 06/26/2021 at 12:49
--- NOTE | 2021-06-26 12:22 | DI.CT.S_ITS ---
PROCEDURE: CT ANGIO CHEST PE PROTOCOL INDICATIONS: hypoxia dimer, recent hospitalization TECHNIQUE: After the administration of intravenous contrast, 2 mm thick sections acquired from the pulmonary apices to the posterior costophrenic angles. 3-dimensional maximum intensity projection (MIP) coronal and sagittal reformats were then acquired through the thorax. For radiation dose reduction, the following was used: automated exposure control, adjustment of mA and/or kV according to patient size. COMPARISON: None. FINDINGS: Image quality: Excellent. Lungs and pleura: A subtle area of nonspecific ground-glass opacity is noted within the right middle lobe laterally and right lower lobe posteriorly. Otherwise no acute airspace opacity. No pleural effusions or pneumothorax. The trachea contains mucous posteriorly. Mediastinum: Heart size is normal. No pericardial effusion. No mediastinal adenopathy by size criteria. 2 right lower lobe subsegmental pulmonary arteries demonstrate central filling defects consistent with nonocclusive pulmonary arterial emboli. Thoracic aorta and central pulmonary arteries are normal in size. Esophagus is normal in caliber. No hiatal hernia. Bones and chest wall: Degenerative changes with no focal abnormality. No vertebral body compression fractures. No axillary or supraclavicular adenopathy by size criteria. Thyroid gland is normal. Abdomen: Limited visualization of the upper abdomen shows no acute abnormality. Early arterial striated nephrogram is seen, nonspecific given this early arterial phase. IMPRESSION: 2 subsegmental right lower lobe pulmonary arteries have nonocclusive pulmonary thrombus. Peripherally in the right lower lobe and right middle lobe there are subtle areas of ground-glass opacity which could be areas of pulmonary infarction. Findings were discussed with Dr. Rios at 12:58 on 02/26/2021 Dictated by: Clarke Bolton M.D. on 06/26/2021 at 12:50 Approved by: Clarke Bolton M.D. on 06/26/2021 at 13:15
[2021-06-26] MEDS: PIPERACILLIN/TAZO 4.5 GM in SODIUM CHLORIDE 0.9% 100 ML 200 ML IV (12:28)
[2021-06-26] MEDS: VANCOMYCIN 1,000 MG/200 ML PIGGYBACK 200 MG IV (12:36)
--- NOTE | 2021-06-26 12:43 | PC.NURSE ---
Picc inserted in L upper arm. No complications. Placement verified by xray and Noemi, RN
--- NOTE | 2021-06-26 13:01 | PC.NURSE ---
POLST form updated and on the chart
[2021-06-26 13:20] LABS: Reflexed Lactate in 2 Hours Y
[2021-06-26] MEDS: APIXABAN 5 MG TABLET PO ×2 (13:32→14:35)
[2021-06-26] MEDS: CARBIDOPA-LEVODOPA 25/100 TABLET 2 EACH PO (14:35)
[2021-06-26] MEDS: BACLOFEN 10 MG TABLET PO (14:35)
[2021-06-26] MEDS: clonazePAM 0.5 MG TABLET 2 MG PO (20:50)
[2021-06-26] MEDS: ATORVASTATIN 20 MG TABLET 80 MG PO (20:50)
[2021-06-26] MEDS: PIPERACILLIN/TAZO 3.375 GM in SODIUM CHLORIDE 0.9% 100 ML IV (20:50)
[2021-06-26] MEDS: CARBIDOPA-LEVODOPA ER 50/200 TABLET 1 EACH PO (20:51)
--- NOTE | 2021-06-26 21:57 | P.HP_ITS ---
History of Present Illness History of Present Illness Chief complaint: AMS, Stroke Narrative: Mr. Dominguez is an 81M with PMH Parkinsons, CAD, TIA, depression who is admitted after presenting as a code stroke. His last known well time was 9am this morning. At 9:30am he was noted to have slurring of speech and right sided gaze. He has known parkinson's and severe weight loss and was recently admitted to this hospital for that reason. EMS was called and noted a blood pressure in the 70s. Family states he was not eating or drinking normally. He did complain of some stomach pain. He had no cough, shortness of breath, fever/chills. In the ED workup was done, he was noted to have tachycardia and tachypnea and hypotension. Labs notable for WBC 6.3, hgb 12.9, plts 116. creatinine 0.84. INR 1.1. COVID negative. Lactate 3.1. Trop 0.015. Procal 0.05. D-dimer 965. ABG pH 7.25, pCO2 70, pAO2 131. UA negative for wbc, leuk esterase, bacteria. Chest xray showed no acute process. CTA chest showed pulmonary thrombus and peripheral ground glass opacities. CT head negative. CTA head/neck showed no acute process. He was given antibiotics and IV fluids and his blood pressure improved, and heart rate improved. He was admitted for further treatment. Once on the floor he was having difficulty swallowing and abdominal pain when swallowing and not wanting to take many oral medications. Patient History Medical History Anxiety Arthritis Bilateral thigh pain BPPV (benign paroxysmal positional vertigo) Brain TIA Chicken pox Chickenpox (Unknown) Chronic back pain (1965) Chronic constipation Chronic fatigue (2014) Colon polyps (2010) Coronary artery disease Depression (2015) Erectile dysfunction Foot pain (~2017) Hiatal hernia Hypercholesterolemia Hypertension Mumps Panic attacks Parkinson's disease (2015) Proximal muscle weakness Surgical History Anesthesia History of colonoscopy with polypectomy (11/19/17) History of colonoscopy with polypectomy (2009) History of tonsillectomy and adenoidectomy S/P CABG (coronary artery bypass graft) (06/2003) Status post coronary artery bypass graft Status post tonsillectomy and adenoidectomy Family & Social History Family History Father CAD (coronary artery disease) CVA (cerebral vascular accident) Hypertension Diabetes mellitus Heart attack Brain cancer Mother Hypertension Dementia Grandmother Diabetes mellitus Grandfather No problems noted. Brother No problems noted. Sister No problems noted. Social History: household members spouse Safety & Behavioral: Feels Safe in Current Yes Environment Tobacco & Substance use: Smoking Status Never smoker alcohol intake former alcohol intake frequency 0-2 drinks per day Substance Use Type does not use Meds Home Medications and Allergies Home Medications Medication Instructions Recorded Confirmed Type donepezil 10 mg tablet 10 mg PO 0900 90 Days tab 01/13/18 06/07/21 History cholecalciferol (vitamin D3) 50 100 mcg PO DAILY 12/02/19 06/07/21 History mcg (2,000 unit) capsule folic acid 400 mcg tablet 0.4 mg PO DAILY 12/02/19 06/07/21 History omeprazole 20 mg capsule,delayed 20 mg PO QAM 03/03/21 06/07/21 History release entacapone 200 mg tablet 100 mg PO BID tab 03/20/21 06/07/21 History docusate sodium 100 mg capsule 100 mg PO BID #60 cap 04/05/21 06/07/21 Rx pravastatin 20 mg tablet 20 mg PO BEDTIME #90 tab 04/20/21 06/07/21 Rx aspirin 81 mg chewable tablet 81 mg PO DAILY 06/07/21 06/07/21 History cyclobenzaprine 10 mg tablet 10 mg PO DAILY PRN 06/07/21 06/07/21 History ginkgo biloba 40 mg capsule 40 mg PO DAILY 06/07/21 06/07/21 History ipratropium bromide 21 mcg (0.03 2 spray INTRANASAL TID 06/07/21 06/26/21 History %) nasal spray lidocaine 4 % topical gel 1 applic TOPICAL QD-BID PRN 06/07/21 06/07/21 History melatonin 5 mg tablet 5 mg PO BEDTIME PRN 06/07/21 06/07/21 History mirtazapine 30 mg tablet 30 mg PO BEDTIME 06/07/21 06/07/21 History tamsulosin 0.4 mg capsule 0.4 mg PO DAILY 06/07/21 06/07/21 History vitamin E 400 unit capsule 400 unit PO DAILY 06/07/21 06/07/21 History baclofen 10 mg tablet 10 mg PO 0900,1300,1700 #0 tab 06/11/21 06/07/21 Rx carbidopa 25 mg-levodopa 100 mg 1 tab PO BID@0600,0900 30 Days #30 06/11/21 Rx tablet tab carbidopa 25 mg-levodopa 100 mg 2 tab PO BID@1300,1700 30 Days #60 06/11/21 Rx tablet tab carbidopa ER 50 mg-levodopa 200 mg 1 tab PO BEDTIME 30 Days #30 tab 06/11/21 Rx tablet,extended release citalopram 40 mg tablet 40 mg PO DAILY 30 Days #30 tab 06/11/21 Rx clonazepam 0.5 mg tablet 1.5 mg PO BID 7 Days #42 tab 06/11/21 Rx clonazepam 2 mg tablet 2 mg PO BID PRN 7 Days #10 tab 06/11/21 Rx dronabinol 2.5 mg capsule 2.5 mg PO TID 30 Days #90 cap 06/11/21 Rx Allergies Allergy/AdvReac Type Severity Reaction Status Date / Time haloperidol [From Haldol] AdvReac Severe dystonia Verified 06/07/21 21:16 metoclopramide AdvReac Severe dystonia Verified 06/07/21 21:16 Phenothiazines AdvReac Severe dystonia Verified 06/07/21 21:16 onion AdvReac Intermediate Heartburn Verified 06/07/21 21:16 Review of Systems Review of Systems Narrative: 14 systems reviewed and negative aside from what is noted in HPI Exam Vital Signs (past 8 hours): - 06/27/21 01:58 Temperature 97.6 F Pulse Rate 60 Respiratory Rate 16 Blood Pressure 131/59 L Pulse Oximetry 97 Oxygen Delivery Method Room Air Oxygen Flow Rate 1 Narrative Exam Narrative: GEN: frail, cachectic, no acute distress HEENT: moist mucous membranes, PERRL NECK: trachea midline, no JVD CV: regular rate and rhythym, no murmurs PULM: clear bilaterally, no wheezes, rhonchi, rales ABD: soft, nontender, nondistended, no organomegaly EXT: warm and well perfused, with no edema NEURO: alert, slow delayed movements, slurred speech, soft voice SKIN: no rashes noted Objective Labs Result Diagrams: 06/27/21 03:40 06/27/21 03:40 Labs: Laboratory Results - last 24 hr 06/26/21 06/26/21 06/26/21 09:30 09:45 09:45 WBC 6.3 RBC 4.14 L Hgb 12.9 L Hct 38.7 L MCV 93.4 MCH 31.2 MCHC 33.4 RDW 15.2 H Plt Count 116 L Neut % (Auto) 51.3 Lymph % (Auto) 42.6 H [place] % (Auto) 5.0 Eos % (Auto) 0.3 L Baso % (Auto) 0.8 Neut # (Auto) 3200 Lymph # (Auto) 2700 [place] # (Auto) 300 Eos # (Auto) 0 Baso # (Auto) 100 PT 12.2 INR 1.1 APTT 23 L D D-Dimer ABG pH ABG pCO2 ABG pO2 ABG HCO3 ABG Total CO2 ABG O2 Saturation ABG Base Excess FiO2 Sodium Potassium Chloride Carbon Dioxide BUN Creatinine Estimated GFR BUN/Creatinine Ratio Glucose Lactate Calcium Magnesium Total Bilirubin AST ALT Alkaline Phosphatase Total Creatine Kinase CK-MB (CK-2) CK-MB (CK-2) Rel Index Troponin I NT-Pro-B Natriuret Pep Total Protein Albumin Globulin Albumin/Globulin Ratio Triglycerides Cholesterol LDL Cholesterol, Calc HDL Cholesterol Procalcitonin Urine Color Urine Appearance Urine pH Ur Specific [place] Urine Protein Urine Glucose (UA) Urine Ketones Urine Occult Blood Urine Nitrate Urine Bilirubin Urine Urobilinogen Ur Leukocyte Esterase Urine RBC Urine WBC Ur Squamous Epith Cells Calcium Oxalate Crystal Urine Bacteria Ur Culture Indicated? U Opiates 300ng/mL cut Ur Oxycodone Screen Urine Methadone Screen Ur Barbiturates Screen U Tricyclic Antidepress Ur Phencyclidine Scrn Ur Amphetamines Screen U Methamphetamines Scrn Ur MDMA Scrn (Ecstasy) U Benzodiazepines Scrn Urine Cocaine Screen U Marijuana (THC) Screen SARS-CoV-2 (PCR) Negative Blood Type Antibody Screen 06/26/21 06/26/21 06/26/21 09:45 09:45 09:45 WBC RBC Hgb Hct MCV MCH MCHC RDW Plt Count Neut % (Auto) Lymph % (Auto) [place] % (Auto) Eos % (Auto) Baso % (Auto) Neut # (Auto) Lymph # (Auto) [place] # (Auto) Eos # (Auto) Baso # (Auto) PT INR APTT D-Dimer ABG pH ABG pCO2 ABG pO2 ABG HCO3 ABG Total CO2 ABG O2 Saturation ABG Base Excess FiO2 Sodium 142 Potassium 3.8 Chloride 107 Carbon Dioxide 30 BUN 34 H Creatinine 0.84 Estimated GFR > 60 BUN/Creatinine Ratio 40.5 H Glucose 128 H Lactate 3.1 H Calcium 8.8 Magnesium Total Bilirubin 0.9 AST 20 ALT 7 Alkaline Phosphatase 32 L Total Creatine Kinase < 20 L CK-MB (CK-2) TNP CK-MB (CK-2) Rel Index TNP Troponin I 0.015 NT-Pro-B Natriuret Pep Total Protein 5.2 L Albumin 3.1 L Globulin 2.1 Albumin/Globulin Ratio 1.5 Triglycerides Cholesterol LDL Cholesterol, Calc HDL Cholesterol Procalcitonin 0.05 Urine Color Urine Appearance Urine pH Ur Specific [place] Urine Protein Urine Glucose (UA) Urine Ketones Urine Occult Blood Urine Nitrate Urine Bilirubin Urine Urobilinogen Ur Leukocyte Esterase Urine RBC Urine WBC Ur Squamous Epith Cells Calcium Oxalate Crystal Urine Bacteria Ur Culture Indicated? U Opiates 300ng/mL cut Ur Oxycodone Screen Urine Methadone Screen Ur Barbiturates Screen U Tricyclic Antidepress Ur Phencyclidine Scrn Ur Amphetamines Screen U Methamphetamines Scrn Ur MDMA Scrn (Ecstasy) U Benzodiazepines Scrn Urine Cocaine Screen U Marijuana (THC) Screen SARS-CoV-2 (PCR) Blood Type Antibody Screen 06/26/21 06/26/21 06/26/21 09:45 09:45 09:55 WBC RBC Hgb Hct MCV MCH MCHC RDW Plt Count Neut % (Auto) Lymph % (Auto) [place] % (Auto) Eos % (Auto) Baso % (Auto) Neut # (Auto) Lymph # (Auto) [place] # (Auto) Eos # (Auto) Baso # (Auto) PT INR APTT D-Dimer 965 H ABG pH 7.25 L* ABG pCO2 70.4 H* ABG pO2 131 H ABG HCO3 31 H ABG Total CO2 33 H ABG O2 Saturation 98 ABG Base Excess 4.0 H FiO2 44 Sodium Potassium Chloride Carbon Dioxide BUN Creatinine Estimated GFR BUN/Creatinine Ratio Glucose Lactate Calcium Magnesium Total Bilirubin AST ALT Alkaline Phosphatase Total Creatine Kinase CK-MB (CK-2) CK-MB (CK-2) Rel Index Troponin I NT-Pro-B Natriuret Pep 489 H Total Protein Albumin Globulin Albumin/Globulin Ratio Triglycerides Cholesterol LDL Cholesterol, Calc HDL Cholesterol Procalcitonin Urine Color Urine Appearance Urine pH Ur Specific [place] Urine Protein Urine Glucose (UA) Urine Ketones Urine Occult Blood Urine Nitrate Urine Bilirubin Urine Urobilinogen Ur Leukocyte Esterase Urine RBC Urine WBC Ur Squamous Epith Cells Calcium Oxalate Crystal Urine Bacteria Ur Culture Indicated? U Opiates 300ng/mL cut Ur Oxycodone Screen Urine Methadone Screen Ur Barbiturates Screen U Tricyclic Antidepress Ur Phencyclidine Scrn Ur Amphetamines Screen U Methamphetamines Scrn Ur MDMA Scrn (Ecstasy) U Benzodiazepines Scrn Urine Cocaine Screen U Marijuana (THC) Screen SARS-CoV-2 (PCR) Blood Type Antibody Screen 06/26/21 06/26/21 06/26/21 10:35 10:35 11:56 WBC RBC Hgb Hct MCV MCH MCHC RDW Plt Count Neut % (Auto) Lymph % (Auto) [place] % (Auto) Eos % (Auto) Baso % (Auto) Neut # (Auto) Lymph # (Auto) [place] # (Auto) Eos # (Auto) Baso # (Auto) PT INR APTT D-Dimer ABG pH ABG pCO2 ABG pO2 ABG HCO3 ABG Total CO2 ABG O2 Saturation ABG Base Excess FiO2 Sodium Potassium Chloride Carbon Dioxide BUN Creatinine Estimated GFR BUN/Creatinine Ratio Glucose Lactate 1.4 Calcium Magnesium Total Bilirubin AST ALT Alkaline Phosphatase Total Creatine Kinase CK-MB (CK-2) CK-MB (CK-2) Rel Index Troponin I NT-Pro-B Natriuret Pep Total Protein Albumin Globulin Albumin/Globulin Ratio Triglycerides Cholesterol LDL Cholesterol, Calc HDL Cholesterol Procalcitonin Urine Color Yellow Urine Appearance Sl cloudy Urine pH 5.5 Ur Specific [place] 1.020 Urine Protein Trace H Urine Glucose (UA) Negative Urine Ketones Trace H Urine Occult Blood Negative Urine Nitrate Negative Urine Bilirubin Negative Urine Urobilinogen 0.2 Ur Leukocyte Esterase Negative Urine RBC 1-5/hpf Urine WBC None seen Ur Squamous Epith Cells 0-1 /hpf Calcium Oxalate Crystal Occasional H Urine Bacteria None seen Ur Culture Indicated? Cult not indicated U Opiates 300ng/mL cut Negative Ur Oxycodone Screen Negative Urine Methadone Screen Negative Ur Barbiturates Screen Negative U Tricyclic Antidepress Negative Ur Phencyclidine Scrn Negative Ur Amphetamines Screen Negative U Methamphetamines Scrn Negative Ur MDMA Scrn (Ecstasy) Negative U Benzodiazepines Scrn Negative Urine Cocaine Screen Negative U Marijuana (THC) Screen Positive H SARS-CoV-2 (PCR) Blood Type Antibody Screen 06/26/21 06/27/21 06/27/21 12:16 03:40 03:40 WBC 10.4 D RBC 3.57 L Hgb 11.3 L Hct 32.9 L MCV 92.2 MCH 31.6 MCHC 34.3 RDW 14.9 H Plt Count 91 L Neut % (Auto) 82.1 H D Lymph % (Auto) 11.8 L D [place] % (Auto) 5.2 Eos % (Auto) 0.1 L Baso % (Auto) 0.8 Neut # (Auto) 8500 H Lymph # (Auto) 1200 [place] # (Auto) 500 Eos # (Auto) 0 Baso # (Auto) 100 PT INR APTT D-Dimer ABG pH ABG pCO2 ABG pO2 ABG HCO3 ABG Total CO2 ABG O2 Saturation ABG Base Excess FiO2 Sodium 142 Potassium 3.4 Chloride 113 H Carbon Dioxide 29 BUN 22 H Creatinine 0.69 Estimated GFR > 60 BUN/Creatinine Ratio 31.9 H Glucose 81 Lactate Calcium 8.2 L Magnesium Total Bilirubin AST ALT Alkaline Phosphatase Total Creatine Kinase CK-MB (CK-2) CK-MB (CK-2) Rel Index Troponin I NT-Pro-B Natriuret Pep Total Protein Albumin Globulin Albumin/Globulin Ratio Triglycerides 87 Cholesterol 232 H LDL Cholesterol, Calc 172 H HDL Cholesterol 43 Procalcitonin Urine Color Urine Appearance Urine pH Ur Specific [place] Urine Protein Urine Glucose (UA) Urine Ketones Urine Occult Blood Urine Nitrate Urine Bilirubin Urine Urobilinogen Ur Leukocyte Esterase Urine RBC Urine WBC Ur Squamous Epith Cells Calcium Oxalate Crystal Urine Bacteria Ur Culture Indicated? U Opiates 300ng/mL cut Ur Oxycodone Screen Urine Methadone Screen Ur Barbiturates Screen U Tricyclic Antidepress Ur Phencyclidine Scrn Ur Amphetamines Screen U Methamphetamines Scrn Ur MDMA Scrn (Ecstasy) U Benzodiazepines Scrn Urine Cocaine Screen U Marijuana (THC) Screen SARS-CoV-2 (PCR) Blood Type O Positive Antibody Screen Negative 06/27/21 03:40 WBC RBC Hgb Hct MCV MCH MCHC RDW Plt Count Neut % (Auto) Lymph % (Auto) [place] % (Auto) Eos % (Auto) Baso % (Auto) Neut # (Auto) Lymph # (Auto) [place] # (Auto) Eos # (Auto) Baso # (Auto) PT INR APTT D-Dimer ABG pH ABG pCO2 ABG pO2 ABG HCO3 ABG Total CO2 ABG O2 Saturation ABG Base Excess FiO2 Sodium Potassium Chloride Carbon Dioxide BUN Creatinine Estimated GFR BUN/Creatinine Ratio Glucose Lactate Calcium Magnesium 2.0 Total Bilirubin AST ALT Alkaline Phosphatase Total Creatine Kinase CK-MB (CK-2) CK-MB (CK-2) Rel Index Troponin I NT-Pro-B Natriuret Pep Total Protein Albumin Globulin Albumin/Globulin Ratio Triglycerides Cholesterol LDL Cholesterol, Calc HDL Cholesterol Procalcitonin Urine Color Urine Appearance Urine pH Ur Specific [place] Urine Protein Urine Glucose (UA) Urine Ketones Urine Occult Blood Urine Nitrate Urine Bilirubin Urine Urobilinogen Ur Leukocyte Esterase Urine RBC Urine WBC Ur Squamous Epith Cells Calcium Oxalate Crystal Urine Bacteria Ur Culture Indicated? U Opiates 300ng/mL cut Ur Oxycodone Screen Urine Methadone Screen Ur Barbiturates Screen U Tricyclic Antidepress Ur Phencyclidine Scrn Ur Amphetamines Screen U Methamphetamines Scrn Ur MDMA Scrn (Ecstasy) U Benzodiazepines Scrn Urine Cocaine Screen U Marijuana (THC) Screen SARS-CoV-2 (PCR) Blood Type Antibody Screen Assessment & Plan Assessment & Plan narrative: Mr. Dominguez is an 81M with advanced Parkinsons, PEs, cachexia who presents with altered mental status and severe hypotension. 1. Altered mental status -etiology most likely secondary to hypotension due to Parkinsons -possibly infectious, UA negative, ordered IV zosyn for possible aspiration pneumonia -patient was code stroke, continue workup with MRI head and echo -NIH ordered -ordered aspirin, no plavix for now as patient already on apixaban -PT/OT and speech therapy -lipids and a1c ordered 2. Severe hypotension -etiology likely secondary poor oral intake secondary to parkinsons -improved with IV fluid resuscitation -continue IV fluids -UA negative, CT showed ground glass opacities possibly due to pulmonary infarct, will cover with zosyn for possible aspiration pneumonia though suspect this is less likely 3. Difficulty swallowing -suspect etiology may be related to gastritis/reflux in setting of poor oral intake due to parkinsons -consider abdominal imaging if patient not improving -ordered protonix, morphine -speech therapy eval 4. Advanced parkinson's dementia -continue parkinsons meds with sinement and entacapone 5. Severe protein calorie malnutrition, cachexia -dietary consult -secondary to advancing parkinsons 6. Pulmonary embolsim -continue apixaban 7. CAD s/p CABG -continue aspirin Patient has poor prognosis due to advanced parkinsons. Suspect that he will not be able to maintain adequate nutrition to significantly improve. Hospice has been discussed on past visit and is appropriate to consider. CODE: DNR Proxy: Brenda Cannonrry, spouse I have utilized all available resources to reconcile the patient's home medications. Time Spent With Patient Critical Care time: I spent a total of [] minutes of critical care time on this patient's care today; this time is exclusive of procedural time. Quality MIPS - Admit I confirm the patient?s Advance Care Plan is present, Code status is documented, Surrogate decision maker is in patient?s record [If Yes, STOP here]: Yes
--- NOTE | 2021-06-26 22:07 | PC.NURSE ---
Addendum entered by Sherrie Elkins R.N. 06/27/21 01:19: Pharmacy arrived and obtained 100 mg entacapone dose for pt, however, pt refused to take medication as well as PRN tylenol. Original Note: Pt has 100 mg entacapone ordered to be given with carbidopa-levodopa doses, however there is none available in the pyxis. Contacted [facility] who informed this RN that it is available in our pharmacy in 200 mg doses. Contacted MD Ayala to see if he wanted to call in pharmacy to obtain it, provider declined, OK to start dosing tomorrow. Medication not given.
[2021-06-27] VITALS (9 sets, daily range): BP systolic 130–140; BP diastolic 59–70; PULSE 45–73; RESP 16–18; TEMP 36.4–37.3; O2SAT 95–97
[2021-06-27 04:06] LABS: Add Manual Diff / Slide Review NO; Basophils Absolute Auto 100 /uL (0-100); Basophils Percent Auto 0.8 % (0-2); Eosinophils Absolute Auto 0 /uL (0-450); Eosinophils Percent Auto 0.1 % (2-4); Hematocrit 32.9 % (41-53); Hemoglobin 11.3 g/dL (13.5-17.5); Lymphocytes Absolute Auto 1200 /uL (1100-4500); Lymphocytes Percent Auto 11.8 % (25-40); Mean Corpuscular HGB Conc 34.3 % (30-36); Mean Corpuscular Hemoglobin 31.6 PG (26-34); Mean Corpuscular Volume 92.2 fL (80-100); Monocytes Absolute Auto 500 /uL (0-900); Monocytes Percent Auto 5.2 % (3-14); Neutrophils Absolute Auto 8500 /uL (1500-7000); Neutrophils Percent Auto 82.1 % (50-75); Platelet Count 91 X10^3/uL (150-400); Red Blood Cell Count 3.57 X10^6/uL (4.5-5.9); Red Cell Distribution Width 14.9 % (11.6-14.8); White Blood Cell Count 10.4 X10^3/uL (4.5-11.0)
[2021-06-27 04:07] LABS: BUN Creatinine Ratio 31.9 (6-22); Blood Urea Nitrogen 22 mg/dL (9-20); Calcium 8.2 mg/dL (8.4-10.2); Carbon Dioxide 29 mmol/L (22-32); Chloride 113 mmol/L (98-107); Cholesterol 232 mg/dL (140-199); Estimated Glomerular Filt Rate > 60 mL/min (>60); Glucose 81 mg/dL (80-110); HDL Cholesterol 43 mg/dL (40-60); HEMOLYSIS < 15 (0-50); LDL Cholesterol Calculated 172 mg/dL (<100); Potassium 3.4 mmol/L (3.4-5.1); Sodium 142 mmol/L (137-145); Triglycerides 87 mg/dL (35-150)
[2021-06-27] MEDS: PIPERACILLIN/TAZO 3.375 GM in SODIUM CHLORIDE 0.9% 100 ML IV ×3 (05:22→20:08)
[2021-06-27] MEDS: MORPHINE 2 MG/ML INJ IV (06:06)
[2021-06-27] MEDS: CARBIDOPA-LEVODOPA 25/100 TABLET 1 EACH PO ×2 (06:42→09:52)
[2021-06-27 06:49] LABS: Hemoglobin A1C% w Est Avg Glu 5.5 % (4.0-6.0)
[2021-06-27] MEDS: SODIUM CHLORIDE 0.9% 1,000 ML 125 ML IV ×3 (07:19→23:19)
--- NOTE | 2021-06-27 07:20 | PC.NURSE ---
Patient resting in bed, mouth swabbed per request. Patient says, Take these things off my legs, they've been squeezing my legs all night. Patient is informed they aid blood flow and help prevent clots. Patient says, Take them off, please! SCD's removed, heels are floated on pillow, blankets tucked in around feet per request. Patient denies pain and reports comfort.
--- NOTE | 2021-06-27 07:33 | PC.ADMIT ---
[email or web address] Martin Simmons Admission Note: Pt arrived to unit in no respiratory or cardiovascular distress. Confused, alert to self and partial date, unsure of situation. Reoriented. Pt extremely malnourished and has difficulty swallowing. NIHSS 0, pt baseline weakness d/t parkinsons w/ tremors. Refused to turn to allow this RN to assess back for skin check- pt records show a stage 2 pressure ulcer between anus and sacrum as well as a stage one pressure ulcer over bony ribs on back left. Oncoming nurse made aware. [place] cath present and patent. Pt able to make needs known when asked, shouts help to people passing by room. The patient,Binu Dominguez,81 y/o, was given written information regarding hospital policies, unit procedures and contact persons. Patient's smoking status: Never smoker. Vital Signs - 8 hr 06/27/21 01:58 Temperature 97.6 F Pulse Rate 60 Respiratory Rate 16 Blood Pressure 131/59 L Pulse Oximetry 97
[2021-06-27] MEDS: PANTOPRAZOLE 40 MG VIAL IV (08:54)
[2021-06-27] MEDS: ASPIRIN EC 81 MG TABLET PO (08:54)
[2021-06-27] MEDS: CITALOPRAM 10 MG TABLET 40 MG PO (08:55)
[2021-06-27] MEDS: APIXABAN 5 MG TABLET PO (08:55)
[2021-06-27] MEDS: ENTACAPONE 200 MG TABLET 100 MG PO ×2 (09:48→20:10)
[2021-06-27] MEDS: POTASSIUM CHLORIDE 20 MEQ TAB 40 MEQ PO (09:50)
--- NOTE | 2021-06-27 10:20 | PC.NURSE ---
Patient resting in bed with family member in room. Patient turns to right side with assist. There is blanchable redness just inferior to left scapula, scattered areas of blanchable redness to lower back. Patient has a Stage 2 pressure injury to his coccyx which measures 0.6 x 0.3 x 0.05 cm. Family member says patient had this pressure injury in the past, it healed, then came back about a month ago. Patient has had recent significant weight loss and appears to have minimal subcutaneous fat. Patient's partial-thickness wound has no drainage noted with edges intact. This is gently cleansed with saline and allevyn foam is placed for protection. Patient is repositioned with pillows and tilted to right side to offload coccyx, heels floated on pillow. Patient reports comfort at this time.
--- NOTE | 2021-06-27 10:59 | SLP.IPNOTE ---
Attempted to see pt for swallow evaluation at 10:45, but pt was with imaging. Will attempt again later today.
--- NOTE | 2021-06-27 12:01 | OT.IP.EVAL ---
Past Medical History (Last Reviewed 06/27/21 @ 05:57 by Daljit Ayala MD) Anxiety Arthritis Bilateral thigh pain BPPV (benign paroxysmal positional vertigo) Brain TIA Chicken pox Chickenpox (Unknown) Chronic back pain (1965) Chronic constipation Chronic fatigue (2014) Colon polyps (2010) Coronary artery disease Depression (2015) Erectile dysfunction Foot pain (~2017) Hiatal hernia History of colonoscopy with polypectomy (11/19/17) History of colonoscopy with polypectomy (2009) History of tonsillectomy and adenoidectomy Hypercholesterolemia Hypertension Mumps Panic attacks Parkinson's disease (2014) Proximal muscle weakness S/P CABG (coronary artery bypass graft) (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 (Rec: 06/27/21 14:18 [facility] [id number]) Medical Review Prior Functional Status Medical History Reviewed Yes Mobility and Gait Per pt able to use [facility] to move with assist. Prior at home pt was using a 4ww and needing more assist from his for all needs. Activities of Daily Living and IADL's Pt has been needing more assist for all ADl's needs per . Social History Household Members spouse Living Arrangements House Number of Floors (Floors) Two Floors Number of Stairs To Enter/Railing? 1 step to enter and pt can stay on the main level. Home Environment High Toilet,Walk in Shower,Tub /Shower Home Equipment Four Wheel Walker,Shower Seat with Backrest,Hand Held Shower ,Bed Rails,Grab Bars Near Toilet,Grab Bars In Shower Additional Social History Comment From prior admission, pt spends most of his day in a recliner. M2 OT-IP Current Condition Start: 06/27/21 13:31 Freq: Status: Active Protocol: Document 06/27/21 11:36 [facility] (Rec: 06/27/21 14:18 [facility] [id number]) Occupational Therapy Current Condition Current Condition Evaluation Date 07/04/21 Treatment Diagnosis Altered Mental Status, decreased mobility Diagnosis Onset Date 06/26/21 M3 OT- IP Subjective and Pain Start: 06/27/21 13:31 Freq: Status: Active Protocol: Document 06/27/21 11:36 [facility] (Rec: 06/27/21 14:18 [facility] [id number]) OT- Subjective Occupational Therapy Visit Type Type Initial Evaluation Visit Start Time 11:36 Visit Stop Time 13:01 Total Visit Minutes 25 Occupational Therapy Visit Comments Patient Comments Pt wanting to get up from the bed. Patient/Caregiver Goals Pt states, I just want everything to be over with. Hospitalist notified. OT Pain Assessment Pain When Pain Assessed At Rest Pain Present Pain Present Denied Pain M4 OT- IP ADL's Start: 06/27/21 13:31 Freq: Status: Active Protocol: Document 06/27/21 11:36 [facility] (Rec: 06/27/21 14:18 [facility] [id number]) OT [id number]-Cobauxj Comments OT Self-Feeding Comments Not at meal time. Educated pt' s to be sure pt is upright when drinking and eating. OT ADL-Grooming Comments OT Grooming Comments Nor performed. OT ADL-Oral Care Comments Oral Care Comments Not performed. OT ADL-Dressing General Eval Lower Body Dressing Ability Maximum Assistance Areas Needing Assistance Socks OT ADL-Toileting General Evaluation Toileting Ability Total Assistance Areas Needing Assistance Empty Catheter or Colostomy Comments OT Toileting Comments Huerta in place OT ADL-Bathing Comments OT Bathing Comments sponge bath more appropriate at this time M5 OT- IP IADL's Start: 06/27/21 13:31 Freq: Status: Active Protocol: Document 06/27/21 11:36 [facility] (Rec: 06/27/21 14:18 [facility] [id number]) OT-Instrumental Activities of Daily Living Deficits IADL Deficits Identified Deficits Home Safety Awareness Awareness of Need for Assistance at Home Decreased Awareness Ability to Problem Solve Emergency Unable to Problem Solve Situations Medication Management Medication Management Caregiver Administers Money Management Money Management Caregiver Provides Assistance Meal Preparation Meal Preparation Caregiver Provides Assist Wine Maker Wine Maker Caregiver Provides Assist Driving Driving Caregiver Provides Assist M6 OT- IP Functional Cognition Start: 06/27/21 13:31 Freq: Status: Active Protocol: Document 06/27/21 11:36 [facility] (Rec: 06/27/21 14:18 [facility] [id number]) Cognitive Factors Limiting Selfcare Function Cognitive Ability Level of Alertness Alert,Confusional State Patient Orientation Name Attention Span Ability Capable of Focused Attention, Unable to Focus Ability to Follow Commands Able to Follow One Step Commands with Increased Time, Able to Follow One Step Commands with Repetition Cognitive Comments Cognitive Assessment Comments Pt mainly orientated to his name. Pt not to find the call light to push and after step by step commands able to push the button. Pt needing tactile , vc , and assist to help more his legs to the edge of the bed. OT- Vision and Hearing OT- Vision Assessment Vision Assessment Comments Pt a bit hard of hearing. M7 OT- IP Mobility and Balance Start: 06/27/21 13:31 Freq: Status: Active Protocol: Document 06/27/21 11:36 [facility] (Rec: 06/27/21 14:18 [facility] [id number]) OT- Bed Mobility Assessment Rolling Level of Assistance Maximum Assistance Supine to Sit Supine to Sit Assist Maximum Assistance OT-Transfer Assessment Comments Mobility Comments Pt needing assist to move his legs to the edge of the bed , heavy use of green pad to more his hips to the edge of the bed and assist to sit upright. MODA for sitting balance as leaning into posterior tilt and wanting to lie back down again. OT- Balance Assessment Sitting Balance and Reactions Static Sitting Balance Ability Poor M8 OT- IP Objective Assessments Start: 06/27/21 13:31 Freq: Status: Active Protocol: Document 06/27/21 11:36 [facility] (Rec: 06/27/21 14:18 [facility] [id number]) OT Gross Range of Motion Upper Extremity Range of Motion Assessment Bilaterally Impaired OT Strength Comments Strength Comments NOt able to formally assess, but at least 3-/5 from pt's assist for mobility needs. OT-Muscle Tone Assessment Comments Muscle Tone Comments At times tremors in his arms noted. M9 OT- IP Assessment and Plan Start: 06/27/21 13:31 Freq: Status: Active Protocol: Document 06/27/21 11:36 [facility] (Rec: 06/27/21 14:18 [facility] [id number]) OT Summary Assessment and Plan Potential Rehabilitation Potential Fair Analytic Complexity at Evaluation Moderate Summary OT Impairments Strength,Balance,Functional Cognition,Functional Mobility, Self-Feeding,Grooming,Dressing ,Toileting,Bathing,Toilet Transfers,Shower Transfers, Activity Tolerance Progress Towards Goals Slow Progress due to Medical Issues,Slow Progress due to Activity Tolerance,Slow Progress due to Cognition Assessment Summary Pt MOD complexity and main barriers are confusion, decreased overall endurance, activity tolerance , strength, balance, and now needing extensive assist for all mobility and ADl needs. Pt to go back to skilled rehab when medically stable. Goals Self-Feeding Goal Standby Assistance Grooming Goal Standby Assistance Dressing Goal Minimal Assistance Toileting Goal Minimal Assistance Bathing Goal Moderate Assistance Toilet Transfer Goal Minimal Assistance Shower Transfer Goal Minimal Assistance Days to Meet Goals 40 Frequency of Treatment Frequency Of Treatment Once a Day Treatment Plan OT Treatment Plan ADL Training,Functional Cognition Training,Functional Mobility,Patient/Family Education,Discharge Planning Other Treatment Recommendations and Next Pt to be able to sit at the Treatment Focus edge of the bed with CGA and able to do grooming needs after set-up. Discharge Recommendations OT Discharge Recommendations SNF Rehab Transportation Needs at Discharge Wheelchair/Cabulance
[2021-06-27] MEDS: CARBIDOPA-LEVODOPA 25/100 TABLET 2 EACH PO ×2 (12:55→17:17)
--- NOTE | 2021-06-27 13:56 | PT.IIE ---
Surgical History (Last Reviewed 06/27/21 @ 05:57 by Daljit Ayala MD) Anesthesia Status post coronary artery bypass graft Status post tonsillectomy and adenoidectomy Medical History (Last Reviewed 06/27/21 @ 05:57 by Daljit Ayala MD) Anxiety Arthritis Bilateral thigh pain BPPV (benign paroxysmal positional vertigo) Brain TIA Chicken pox Chickenpox (Unknown) Chronic back pain (1965) Chronic constipation Chronic fatigue (2013) Colon polyps (2010) Coronary artery disease Depression (2015) Erectile dysfunction Foot pain (~2017) Hiatal hernia Hypercholesterolemia Hypertension Mumps Panic attacks Parkinson's disease (2015) Proximal muscle weakness Physical Therapy Inpatient Evaluation/Re-Eval M1 PT/OT-IP Prior Functional Status Start: 06/27/21 14:38 Freq: NEEDED Status: Active Protocol: Document 06/27/21 14:39 AB (Rec: 06/27/21 14:57 AB [id number]) Medical Review Prior Functional Status Medical History Reviewed Yes Communication presents with weak voice and confusion Mobility and Gait pt admitted last 06/07/21 for malnutrition and was d/c 06/11 to SNF. pt then admitted 06/26 for CVA. Prior to first hospitalization, pt requiring SBA fro spouse at home for transfers/ambulation using 4WW and spouse also assists pt with ADLs. Social History Household Members spouse Living Arrangements Apartment/Condo Number of Floors (Floors) Two Floors Number of Stairs To Enter/Railing? pt stays on main level of the house 1 step to enter Home Environment High Toilet,Walk in Shower,Tub /Shower Home Equipment Four Wheel Walker,Shower Seat with Backrest,Hand Held Shower ,Grab Bars Near Toilet,Grab Bars In Shower Additional Social History Comment pt has L side rail on his bed at home M2 PT-IP Current Condition Start: 06/27/21 14:38 Freq: NEEDED Status: Active Protocol: Document 06/27/21 14:39 AB (Rec: 06/27/21 14:57 AB [id number]) Physical Therapy Current Condition Current Condition Evaluation Date 06/27/21 Treatment Diagnosis AMS; PD; difficulty in walking Onset Date 06/26/21 M3 PT-IP Subjective Start: 06/27/21 14:38 Freq: NEEDED Status: Active Protocol: Document 06/27/21 14:39 AB (Rec: 06/27/21 14:57 AB [id number]) Subjective Physical Therapy Visit Type Type Initial Evaluation Visit Start Time 13:56 Visit Stop Time 14:15 Total Visit Minutes 19 Number of RETAIL ACCOUNT REPRESENTATIVE Visits 0 Physical Therapy Visit Comments Patient Comments stated that he cannot move but willing to try M4 PT-IP Mobility and Gait Start: 06/27/21 14:38 Freq: NEEDED Status: Active Protocol: Document 06/27/21 14:39 AB (Rec: 06/27/21 14:57 AB [id number]) PT-Bed Mobility Assessment Supine to Sit Supine to Sit Maximum Assistance,1 Person Assistance,2 Person Assistance Scooting Scooting to Edge of Bed Maximum Assistance PT-Transfer Assessment Sit to and From Stand Sit to and from Stand Maximum Assistance,2 Person Assistance,Use of Upper Extremities Equipment Transfer Assistive Device Gait Belt,Front Wheeled Walker Orthotic/Prosthetic Devices or Brace: No Transfers Transfer Destination Chair Transfer Technique Stand Step Pivot Transfer Ability Level of Assist Maximum Assistance,1 Person Assistance,2 Person Assistance ,Use of Upper Extremities Comments Mobility Comments completed supine to sit max A x 1- 2 and max cues. CGA with sitting balance on EOB. completed sit to stand max A x 2 and max cues. increase posterior trunk lean with posterior LOB requiring max A and max cues. completed step transfer to chair max a x 2 and max cues. pt refused ambulation but agreed to sit on the chair. positioned pt on the chair. call light and table placed within reach. PT-Balance Assessment Sitting Balance and Reactions Static Sitting Balance Ability Fair Dynamic Sitting Balance Ability Poor Standing Balance and Reactions Static Standing Balance Ability Poor Dynamic Standing Balance Ability Poor Device Used FWW M5 PT-IP Objective Assessments Start: 06/27/21 14:38 Freq: NEEDED Status: Active Protocol: Document 06/27/21 14:39 AB (Rec: 06/27/21 14:57 AB [id number]) Orientation Orientation/Cognition Level of Alertness Alert Orientation Name Safety Awareness Decreased Safety Awareness Memory Description Short Term Impaired,Flight Deck Officer Impaired Comments soft weak voice and with confusion Gross Range of Motion Lower Extremity ROM Assessment Within Functional Limits Impairments with extension rigidity M6 PT-IP Treatment Start: 06/27/21 14:38 Freq: NEEDED Status: Active Protocol: Document 06/27/21 14:39 AB (Rec: 06/27/21 14:57 AB [id number]) Physical Therapy Treatment Education Education Provided Safety M7 PT-IP Assessment and Plan Start: 06/27/21 14:38 Freq: NEEDED Status: Active Protocol: Document 06/27/21 14:39 AB (Rec: 06/27/21 14:57 [id number]) PT Summary Assessment and Plan Potential Rehabilitation Potential Fair Status of Condition at Evaluation Evolving Summary Impairments ROM,Strength,Balance, Coordination,Sensation,Tone, Cognition,Bed Mobility, Transfers,Gait,Activity Tolerance Assessment Summary pt requiring max A x2 with mobility using FWW. presents with increase extensor tone affecting movement. pt will require SNF rehab to improve strength and function. Goals Bed Mobility Goal Minimal Assistance Transfer Goal Minimal Assistance,Front Wheeled Walker Gait Goal Minimal Assistance,Front Wheel Walker Gait Distance 100 Other Goals improve bed moblity, transfers using fWW CGA and ambulation CGA using FWW 100 ft Days to Meet Goals 10 Frequency of Treatment Frequency Of Treatment Once a Day Treatment Plan Physical Therapy Treatment Plan Bed Mobility Training,Transfer Training,Gait Training, Therapeutic Exercise,Balance Retraining,Discharge Planning, Hot or Cold Pack,Neuromuscular Re-ed,Coordination Retraining ,Manual Therapy Precautions Other Precautions falls Recommendations To Nursing Amount of Assist Needed 2 Person Assist Discharge Recommendations PT Discharge Recommendations SNF Rehab Transportation Needs at Discharge Wheelchair/Cabulance
--- NOTE | 2021-06-27 14:15 | CM.DANOTE ---
Initial DCP Assessment Note Pt is an 81 yo male, resident of [place], presents from [facility] as a code stroke. PMH includes Parkinsons, CAD, TIA, depression PCP: Raoul Oliver: AFSHAN/Amanda Reviewed chart, pt discussed in multidisciplinary rounds this morning. Patient may be medically ready for DC back to SNF w/in 24 hrs; MRI and VICE PRESIDENT PAYER pending. According to Judge Tyra, patient declined nutrition support last hospital visit In addition, Dr Jamil has discussed medical POC options and patient/family are not considering hospice at this time, would like SNF rehab upon DC Met w/patient and spouse, patient very soft spoken, drowsy, asks this ORE FIELDER to do all planning w/his , brenda. Brenda explains she provides full assist at home and asks friends to come in when she needs to leave their home. Spouse requests [facility] upon DC; states patient would like to return home but she and patient have agreed patient requires SNF for rehab at this time and hopeful patient will improve with time, medication and therapies Spoke w/July at [facility] who is reviewing, July can also look up C19 Vaccination status. spouse states patient is triple vaccinated but does not have Vax card today Awaiting f/u from July from [facility] re acceptance and bed availability? No b/u choice at this time, need to discuss w/patient/family further if [facility] declines. PASRR completed in anticipation of SNF PRATEEK Piña Discharge Planning/Care Management CM Discharge Assessment Start: 06/27/21 13:57 Freq: Status: Active Protocol: Document 06/27/21 13:57 LEONARDO (Rec: 06/27/21 14:15 LEONARDO [id number]) Discharge Planning Assessment Assigned Ferryboat Helper PRATEEK Hopkins DPOA/Assigned Designee Name Brenda Dominguez, spouse Contact Information [phone] Advance Directives? Yes Advance Directives on File Yes History Provided By Patient,Family Member,Medical Record Has Patient been admitted in last 30 Yes days? Comment 06.07.21-06.11.21 Prior Living Arrangements Apartment/Condo Household Members spouse Type of transporation used prior to Relies on Others admit Facility Name Admitted From: [facility] Willing to Return to Facility? Yes Independent with ADL's No Is patient alert and oriented? No Patient/Family Preference [facility] Facility Comment Return to [facility] is anticipated Discharge Plan Senior Care Facility Transportation Arrangement w/c vs BLS Referrals Initiated Senior Care Medicare Choice List Provided Yes SNF/HH Preference [facility]
--- NOTE | 2021-06-27 14:28 | PC.NURSE ---
Addendum entered by Brina Cooper R.N. 06/27/21 14:32: as needed. Call light w/in reach, chair alarm on for pt safety. Continue w/plan of care. Addendum entered by Brina Cooper R.N. 06/27/21 14:30: Pt sitting in chair , continues to ask for help frequently. Huerta cath patent clear urine Received clonipin as Original Note: Pt alert w\ some confusion. Lungs clear\shallow , SpO2 96% RA NS infusing into the CLARE PICC via pump as per orders wop
--- NOTE | 2021-06-27 14:29 | CM.DANOTE ---
Initial DCP Assessment Note Pt is an 81 yo male, resident of [place], presents from [facility] as a code stroke. PMH includes Parkinsons, CAD, TIA, depression PCP: Raoul Salguero Payer: AFSHAN/Amanda Reviewed chart, pt discussed in multidisciplinary rounds this morning. Patient may be medically ready for DC back to SNF w/in 24 hrs; MRI, PT/OT and CORPORATE HUMAN RESOURCES MANAGER pending. According to Awning Craftsperson Tyra, patient declined nutrition support last hospital visit Goals of care discussed during last visit, may be beneficial to review again this visit According to Dr Ayala's H+P: Patient has poor prognosis due to advanced parkinsons. Suspect that he will not be able to maintain adequate nutrition to significantly improve. Hospice has been discussed on past visit and is appropriate to consider. This GATE TENDER following closely and will plan to complete bedside assessment with spouse, will review DCP and goals of care if time allows PRATEEK Piña Discharge Planning/Care Management CM Discharge Assessment Start: 06/27/21 13:57 Freq: Status: Active Protocol: Document 06/27/21 13:57 LEONARDO (Rec: 06/27/21 14:15 LEONARDO [id number]) Discharge Planning Assessment Assigned Agile Tester PRATEEK Hopkins DPOA/Assigned Designee Name Brenda Dominguez, spouse Contact Information [phone] Advance Directives? Yes Advance Directives on File Yes History Provided By Patient,Family Member,Medical Record Has Patient been admitted in last 30 Yes days? Comment 4.-4.22 Prior Living Arrangements Apartment/Condo Household Members spouse Type of transporation used prior to Relies on Others admit Facility Name Admitted From: [facility] Willing to Return to Facility? Yes Independent with ADL's No Is patient alert and oriented? No Patient/Family Preference [facility] Comment Return to [facility] is anticipated Discharge Plan [facility] Facility Transportation Arrangement w/c vs BLS Referrals Initiated [facility] Medicare Choice List Provided Yes SNF/HH Preference [facility]
--- NOTE | 2021-06-27 15:10 | P.PN_ITS ---
Subjective Subjective Date Patient Seen: 06/27/21 Interval history: Patient feels improved, though spouse notes he is still a bit confused from baseline. His BP is improved today, he continues to not eat. Exam Vital Signs (past 8 hours): - 06/27/21 08:51 06/27/21 11:00 06/27/21 12:00 Temperature 98.7 F Pulse Rate 73 Respiratory Rate 16 Blood Pressure 130/66 Pulse Oximetry 95 97 96 Oxygen Delivery Method Room Air Oxygen Flow Rate 1 Narrative Exam Narrative: GEN: frail, cachectic, no acute distress HEENT: moist mucous membranes, PERRL NECK: trachea midline, no JVD CV: regular rate and rhythym, no murmurs PULM: clear bilaterally, no wheezes, rhonchi, rales ABD: soft, nontender, nondistended, no organomegaly EXT: warm and well perfused, with no edema NEURO: alert, slow delayed movements, slurred speech, soft voice, confused compared to baseline. SKIN: no rashes noted Objective Labs Result Diagrams: 06/27/21 03:40 06/27/21 03:40 Labs: Laboratory Results - last 24 hr 06/27/21 06/27/21 06/27/21 03:40 03:40 03:40 WBC 10.4 D RBC 3.57 L Hgb 11.3 L Hct 32.9 L MCV 92.2 MCH 31.6 MCHC 34.3 RDW 14.9 H Plt Count 91 L Neut % (Auto) 82.1 H D Lymph % (Auto) 11.8 L D [place] % (Auto) 5.2 Eos % (Auto) 0.1 L Baso % (Auto) 0.8 Neut # (Auto) 8500 H Lymph # (Auto) 1200 [place] # (Auto) 500 Eos # (Auto) 0 Baso # (Auto) 100 Sodium 142 Potassium 3.4 Chloride 113 H Carbon Dioxide 29 BUN 22 H Creatinine 0.69 Estimated GFR > 60 BUN/Creatinine Ratio 31.9 H Glucose 81 Hemoglobin A1c 5.5 Calcium 8.2 L Magnesium Triglycerides 87 Cholesterol 232 H LDL Cholesterol, Calc 172 H HDL Cholesterol 43 06/27/21 03:40 WBC RBC Hgb Hct MCV MCH MCHC RDW Plt Count Neut % (Auto) Lymph % (Auto) [place] % (Auto) Eos % (Auto) Baso % (Auto) Neut # (Auto) Lymph # (Auto) [place] # (Auto) Eos # (Auto) Baso # (Auto) Sodium Potassium Chloride Carbon Dioxide BUN Creatinine Estimated GFR BUN/Creatinine Ratio Glucose Hemoglobin A1c Calcium Magnesium 2.0 Triglycerides Cholesterol LDL Cholesterol, Calc HDL Cholesterol [facility] Medical History Anxiety Arthritis Bilateral thigh pain BPPV (benign paroxysmal positional vertigo) Brain TIA Chicken pox Chickenpox (Unknown) Chronic back pain (1965) Chronic constipation Chronic fatigue (2014) Colon polyps (2010) Coronary artery disease Depression (2015) Erectile dysfunction Foot pain (~2016) Hiatal hernia Hypercholesterolemia Hypertension Mumps Panic attacks Parkinson's disease (2014) Proximal muscle weakness Surgical History Anesthesia History of colonoscopy with polypectomy (11/19/17) History of colonoscopy with polypectomy (2009) History of tonsillectomy and adenoidectomy S/P CABG (coronary artery bypass graft) (06/2003) Status post coronary artery bypass graft Status post tonsillectomy and adenoidectomy Family History Father CAD (coronary artery disease) CVA (cerebral vascular accident) Hypertension Diabetes mellitus Heart attack Brain cancer Mother Hypertension Dementia Grandmother Diabetes mellitus Grandfather No problems noted. Brother No problems noted. Sister No problems noted. Social History household members: spouse Smoking Status: Never smoker alcohol intake: former Assessment & Plan Assessment & Plan narrative: Mr. Dominguez is an 81M with advanced Parkinsons, PEs, cachexia who presents with altered mental status and severe hypotension. 1. sepsis secondary to possible aspiration pneumonia with brief episode of shock and acute encephalopathy. -patient was code stroke, continue workup with MRI head and echo, though suspect etiology is more metabolic given improvement today. -SOFA score of 3 on admission. -continue home apixaban and aspirin. -PT/OT and speech therapy -continue zosyn for aspiration pneumonia, no other obvious source. -patient was hypotensive in the ER, eventually responded to IV fluids but initially required a small amount of pressor support which was weaned before he arrived on the hospital floor. -do suspect a component of hypovolemic as well as septic shock. 2. Difficulty swallowing -suspect progression of his parkinson's disease at this time. OIL EXPLORATION ENGINEER eval pending. his diet was changed to a modified diet based on previous notes. 3. Advanced parkinson's dementia -continue parkinsons meds with sinement and entacapone 4. Severe protein calorie malnutrition, cachexia with BMI of 16. -dietary consult -secondary to advancing parkinsons 5. Pulmonary embolsim -continue apixaban 6. CAD s/p CABG -continue aspirin -LDL 172, consider additional agents as outpatient as already on high intensity 80 mg of atorvastatin. Patient has poor prognosis due to advanced parkinsons. Suspect that he will not be able to maintain adequate nutrition to significantly improve. Hospice has been discussed on past visit and is appropriate to consider. He is still interested in trying to improve at rehab after discussion today. CODE: DNR Proxy: Brenda Hey, spouse I have utilized all available resources to reconcile the patient's home medications. Time Spent With Patient Critical Care time: I spent a total of [] minutes of critical care time on this patient's care today; this time is exclusive of procedural time. Scores SOFA PaO2/FIO2: >=400 mmHg Platelets: >= 150 Bilirubin: < 1.2 mg/dL Hypotension: Dopamine <=5 or dobutamine (any) [place] Coma Scale: 13-14 Renal: < 1.2 mg/dL SOFA Score: 3
--- NOTE | 2021-06-27 15:17 | SLP.IPNOTE ---
Attempted to see pt for swallow evaluation at 14:45. Pt was asleep in chair when LAND LEASING EXAMINER arrived. He opened his eyes briefly upon greeting, but closed them again and refused treatment at this time. Will attempt evaluation again tomorrow.
--- NOTE | 2021-06-27 17:55 | DIET.CONS ---
Dietary Consultation Note Admission Date: 06/27/2021 10:00 Assessment: 81 y/o M with PMH of Parkinson's disease admitted for code stroke. Per last admission: Binu reports poor appetite for the last couple years. States food often does not taste right or feel good going down. Recent barium swallow indicates rec for dysphagia mechanical soft diet and thin liquids. Reports some foods that he can eat include: eggs, fruit, yogurt, chicken, fish (not salmon). Does not like ensure. Open to trying a fruit protein shake. Reports eating 2-3 x per day but usually only 3-6 bites at a meal. tries to help with food preferences and intake. Not interested in nutrition support. Nutrition focused physical exam indicates severe muscle and fat loss in temporal, clavicle, and shoulder regions. Wt hx: 06/07/21: 47.5kg (-5.3%) severe 03/05/21: 59.6kg (-12.1kg or 20%) severe 01/2021: 60.441kg (-12.9kg or 21%) severe Ht: 167.64 cm Wt: 45 kg BMI: 16.0 UBW: 60.4kg Last BM: 06/27/21 (06/27/21 08:00) MNA: John Score: 16 Diet: 06/27/21 Lunch Dysphagia Diet Diet Modifications: likes eggs, fruit/pro smoothie bid Safety Tray needed?: No Liquid consistency: Normal/Thin Food texture: Dysphagia Mechanical Soft Nutrition Percent Meal Consumed 50% 06/27/21 13:22 Percent Meal Consumed 0% 06/27/21 09:00 Labs: RBC 3.57 X10^6/uL (4.5-5.9) L 06/27/21 03:40 Hgb 11.3 g/dL (13.5-17.5) L 06/27/21 03:40 Hct 32.9 % (41-53) L 06/27/21 03:40 Creatinine 0.69 mg/dL (0.66-1.25) 06/27/21 03:40 Hemoglobin A1c 5.5 % (4.0-6.0) 06/27/21 03:40 Lactate 1.4 mmol/L (0.7-2.1) 06/26/21 11:56 NT-Pro-B Natriuret Pep 489 pg/mL (<450) H 06/26/21 09:45 Nutrition Diagnosis: Severe Acute on Chronic PCM r/t progressive Parkinson's Disease and loss of appetite aeb 5.3% unintentional weight loss in 4w (severe), 20% unintentional weight loss in 4mo (severe), BMI 16 (severe), pt recently hospitalized for anorexia and dehydration. Interventions: 1. BID fruit and protein smoothies in leiu of ONS. EER: 2124-4828 kcals (35-40kcals/kg) 71-95g PRO (1.5-2g/kg) Monitoring/Evaluations: POs, POC Electronically Signed by: Tyra Denny 06/27/21 17:55 Clinical Dietitian [address] [address]
--- NOTE | 2021-06-27 19:51 | DI.ECHO.S_ITS ---
[place] +---------+ [facility] +---------+ : : [address] : : : : [id number] : : : : Phone: [phone]+ Echocardiogram Report + + :Name: LUCAS MUNIZ Study Date: 06/27/2021 Height: 66 in : :[facility] ReadingLocation: Weight: 99 lb : : Gender: Male BSA: 1.5 m2 : :: 1940 Age: 81 yrs BP: 131/59 mmHg: :Reason For Study: Stroke : : Performed By: Reny Pate : :Referring: LUPE LUJAN : + + Interpretation Summary 1) Normal left ventricular size, thickness, and systolic function (EF 55-60%). 2) The basal to mid inferolateral wall and the entire inferoseptum appear to have mild hypokinesis. Basal to mid inferior wall is akinetic. 3) The right ventricle is mildly dilated. Right ventricular systolic function is mildly reduced. 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 On re-review of images from Echo 08/28/2019 and 12/21/2003, this mass can be been in parasternal long axis but visualization is better on today's images. Differential diagnosis for this mass includes vegetation (probably old). 5) No significant valvular stenosis or regurgitation present. 6) Compared to the Echo done 08/18/2019, no significant change. Recommend blood cultures to rule out acute endocarditis. Call cardiology if there are further questions. Procedure: A two-dimensional transthoracic echocardiogram with color flow and Doppler was performed. The study quality was technically good. Comparison is made with the echocardiogram of 08/28/2019. The patient had frequent PVCs during the exam. The patient was in normal sinus rhythm during the exam. Left Ventricle: The left ventricle is normal in size and wall thickness. There is no thrombus. There is no ventricular septal defect visualized. A false chord is noted (normal variant). The ejection fraction is estimated to be 55-60%. The basal to mid inferolateral wall and the entire inferoseptum appear to have mild hypokinesis. Basal to mid inferior wall is akinetic. Right Ventricle: The right ventricle is mildly dilated. Right ventricular systolic function is mildly reduced. Atria: The left atrium is moderately dilated. The right atrium is mildly dilated. There is no Doppler evidence for an interatrial shunt. Mitral Valve: There is mild mitral annular calcification. There is trace mitral regurgitation. Aortic Valve: The aortic valve is trileaflet. The aortic valve opens well. 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 On re- review of images from Echo 08/28/2019 and 12/21/2003, this mass can be been in parasternal long axis but visualization is better on today's images. There is no aortic valve stenosis. No aortic regurgitation is present. Tricuspid Valve: The tricuspid valve leaflets are thin and pliable. There is mild tricuspid regurgitation. The right ventricular systolic pressure is estimated to be at least 25 mmHg based on an estimated right atrial pressure of 3 mm Hg. Pulmonic Valve: The pulmonic valve leaflets are thin and pliable; valve motion is normal. There is mild pulmonic regurgitation. Great Vessels: The aortic root is normal size. The ascending aorta is mildly enlarged. The aortic arch is normal in size. The IVC is of normal diameter and collapses greater than 50% with a sniff. This suggests a low right atrial pressure of 3 mm Hg. Pericardium/ Pleura There is no pericardial effusion. MMode/2D Measurements & Calculations LVIDd: 4.7 cm LVOT diam: 2.4 cm LVIDs: 2.8 cm Ao root diam: 3.8 cm FS: 40.8 % asc Aorta Diam: 3.6 cm EPSS: 0.66 cm Ao Arch Diam (Prox Trans): 2.5 cm IVSd: 1.1 cm LVPWd: 0.78 cm LV graham. diameter/BSA (cm/m^2): 3.2 LV sys. diameter/BSA (cm/m^2): 1.9 LA A2 area: 20.6 cm2 RA long axis: 4.7 cm LA A4 area: 15.9 cm2 RA area: 16.9 cm2 LA length (vol): 4.4 cm RA vol: 51.7 ml LA vol: 64.1 ml RA : 34.9 ml/m2 LA vol index: 43.2 ml/m2 IVC diam: 1.9 cm RVD1 (basal): 4.1 cm TAPSE: 1.7 cm Doppler Measurements & Calculations Ao V2 max: 92.2 cm/sec LVOT Max Ramiro: 68.7 cm/sec Ao V2 mean: 64.4 cm/sec LV V1 max P.9 mmHg Ao max P.4 mmHg LV V1 VTI: 14.9 cm Ao mean P.8 mmHg YAMILETH(I,D): 3.6 cm2 Ao V2 VTI: 18.9 cm YAMILETH(V,D): 3.4 cm2 sev ratio: 0.79 YAMILETH indexed to BSA (cm^2/m^2): 2.4 MV E max ramiro: 56.0 cm/sec TR max ramiro: 234.0 cm/sec MV A max ramiro: 60.3 cm/sec TR max P.9 mmHg MV E/A: 0.93 PA V2 max: 68.0 cm/sec Med Peak E' Ramiro: 3.7 cm/sec PA V2 mean: 48.6 cm/sec E/E' med: 15.0 PA mean P.0 mmHg Lat Peak E' Ramiro: 8.8 cm/sec PA pr(Accel): 44.3 mmHg E/E' lat: 6.4 E/e' average: 10.7 MV dec time: 0.27 sec SV(LVOT): 68.3 ml Reading Physician:02:20 PM
[2021-06-27] MEDS: ATORVASTATIN 20 MG TABLET 80 MG PO (20:08)
[2021-06-27] MEDS: CARBIDOPA-LEVODOPA ER 50/200 TABLET 1 EACH PO (20:10)
[2021-06-27] MEDS: ACETAMINOPHEN 325 MG TABLET 650 MG PO (20:13)
[2021-06-27] MEDS: APIXABAN 5 MG TABLET 10 MG PO (20:14)
[2021-06-28] VITALS: BP 141/72; PULSE 57; RESP 18; TEMP 37.2; O2SAT 96
[2021-06-28] MEDS: PIPERACILLIN/TAZO 3.375 GM in SODIUM CHLORIDE 0.9% 100 ML IV (05:36)
[2021-06-28] MEDS: MORPHINE 2 MG/ML INJ IV (05:57)
[2021-06-28] MEDS: CARBIDOPA-LEVODOPA 25/100 TABLET 1 EACH PO ×2 (05:58→08:04)
[2021-06-28 07:00] VITALS: O2SAT 96
[2021-06-28 07:13] LABS: Add Manual Diff / Slide Review NO; Basophils Absolute Auto 0 /uL (0-100); Basophils Percent Auto 0.6 % (0-2); Eosinophils Absolute Auto 0 /uL (0-450); Eosinophils Percent Auto 0.2 % (2-4); Hematocrit 36.3 % (41-53); Hemoglobin 12.2 g/dL (13.5-17.5); Lymphocytes Absolute Auto 900 /uL (1100-4500); Lymphocytes Percent Auto 14.7 % (25-40); Mean Corpuscular HGB Conc 33.6 % (30-36); Mean Corpuscular Hemoglobin 31.2 PG (26-34); Mean Corpuscular Volume 92.7 fL (80-100); Monocytes Absolute Auto 300 /uL (0-900); Monocytes Percent Auto 5.1 % (3-14); Neutrophils Absolute Auto 5000 /uL (1500-7000); Neutrophils Percent Auto 79.4 % (50-75); Platelet Count 97 X10^3/uL (150-400); Red Blood Cell Count 3.91 X10^6/uL (4.5-5.9); Red Cell Distribution Width 15.1 % (11.6-14.8); White Blood Cell Count 6.3 X10^3/uL (4.5-11.0)
[2021-06-28 07:39] LABS: Blood Urea Nitrogen 18 mg/dL (9-20); Calcium 8.3 mg/dL (8.4-10.2); Carbon Dioxide 27 mmol/L (22-32); Chloride 110 mmol/L (98-107); Estimated Glomerular Filt Rate > 60 mL/min (>60); Glucose 86 mg/dL (80-110); HEMOLYSIS < 15 (0-50); Magnesium 1.9 mg/dL (1.6-2.3); Potassium 3.3 mmol/L (3.4-5.1); Sodium 140 mmol/L (137-145)
[2021-06-28] MEDS: SODIUM CHLORIDE 0.9% 1,000 ML 125 ML IV (07:41)
--- NOTE | 2021-06-28 07:53 | P.DS_ITS ---
History of Present Illness History of Present Illness Date Patient Seen: 06/28/21 Time Patient Seen: 07:53 Chief complaint: AMS, Stroke Narrative: Per Dr. Ayala, Mr. Dominguez is an 81M with PMH Parkinsons, CAD, TIA, depression who is admitted after presenting as a code stroke. His last known well time was 9am this morning. At 9:30am he was noted to have slurring of speech and right sided gaze. He has known parkinson's and severe weight loss and was recently admitted to this hospital for that reason. EMS was called and noted a blood pressure in the 70s. Family states he was not eating or drinking normally. He did complain of so me stomach pain. He had no cough, shortness of breath, fever/chills. In the ED workup was done, he was noted to have tachycardia and tachypnea and hypotension. Labs notable for WBC 6.3, hgb 12.9, plts 116. creatinine 0.84. INR 1.1. COVID negative. Lactate 3.1. Trop 0.015. Procal 0.05. D-dimer 965. ABG pH 7.25, pCO2 70, pAO2 131. UA negative for wbc, leuk esterase, bacteria. Chest xray showed no acute process. CTA chest showed pulmonary thrombus and peripheral ground glass opacities. CT head negative. CTA head/neck showed no acute process. He was given antibiotics and IV fluids and his blood pressure improved, and heart rate improved. He was admitted for further treatment. Once on the floor he was having difficulty swallowing and abdominal pain when swallowing and not wanting to take many oral medications. Discharge Providers Provider Date of admission: 06/27/21 10:00 Discharge Date: 06/28/21 Primary care physician: Raoul Salguero MD Consults: 06/26/21 19:51 Consult to Occupational Therapy Evaluate & Treat Comment: Physician Instructions: Evaluate and treat Consult to Physical Therapy Evaluate & Treat Comment: Physician Instructions: Evaluate and Treat Consult to Speech Therapy Evaluate & Treat Comment: Physician Instructions: Evaluate and treat 06/27/21 04:23 Consult to Boarding Kennel Or Cattery Operator Routine Comment: 06/27/21 06:11 Consult to Dietitian, Adult Routine Comment: Reason For Exam: parkinsons, cachectic Discharge provider: Jesus Jamil DO Summary Hospital Course Discharge Diagnosis: Please see hospital course by problem list noted below. Hospital Course: Mr. Dominguez is an 81M with advanced Parkinsons, PEs, cachexia who presents with altered mental status and severe hypotension. 1. sepsis secondary to possible aspiration pneumonia with brief episode of shock and acute encephalopathy. -patient was code stroke in the ER, attempted workup with MRI head and echo, though suspect etiology is more metabolic given improvement. MRI was not performed over radiology concern for his sternal wires which are visible on his chest wall due to his malnutrition. Echocardiogram was unremarkable. -SOFA score of 3 on admission. -patient was evaluated by PT/OT and speech. -continued zosyn for aspiration pneumonia, no other obvious source. Discharge to SNF on augmentin for another 5 days. -patient was hypotensive in the ER, eventually responded to IV fluids but initially required a small amount of pressor support which was weaned before he arrived on the hospital floor. -do suspect a component of hypovolemic as well as septic shock given his overall poor PO intake. 2. Difficulty swallowing -suspect progression of his parkinson's disease at this time. his diet was changed to a modified diet based on previous notes. -recommend continued speech therapy as an outpatient. -recommend palliative care as an outpatient. 3. Advanced parkinson's dementia -continue parkinsons meds with sinement and entacapone -highly recommend consideration of palliative care consultation or hospice given patients continued decline and lack of appetite. He still would like to go back to rehab after discussion here. 4. Severe protein calorie malnutrition, cachexia with BMI of 16. -dietary consultation was performed -secondary to advancing parkinsons 5. Pulmonary embolsim -started on apixaban 10 mg BID for 2 weeks followed by 5 mg BID for at least 3 months. 6. CAD s/p CABG -continue aspirin -LDL 172, consider additional agents as outpatient as already on high intensity 80 mg of atorvastatin. CODE: DNR Proxy: Brenda Dominguez, spouse I have utilized all available resources to reconcile the patient's home medications. Time Spent with Patient Time spent: Greater than 30 minutes Exam Vital Signs (past 8 hours): - 06/28/21 00:00 06/28/21 07:00 Temperature 99.0 F Pulse Rate 57 L Respiratory Rate 18 Blood Pressure 141/72 H Pulse Oximetry 96 96 Oxygen Delivery Method Room Air Oxygen Flow Rate 0 Narrative Exam Narrative: GEN: frail, cachectic, no acute distress HEENT: moist mucous membranes, PERRL NECK: trachea midline, no JVD CV: regular rate and rhythym, no murmurs PULM: clear bilaterally, no wheezes, rhonchi, rales ABD: soft, nontender, nondistended, no organomegaly EXT: warm and well perfused, with no edema NEURO: alert, slow delayed movements, slurred speech, soft voice, confused compared to baseline. SKIN: no rashes noted Objective Labs Result Diagrams: 06/28/21 07:00 06/28/21 07:00 Labs: Laboratory Results - last 24 hr 06/28/21 06/28/21 06/28/21 07:00 07:00 07:00 WBC 6.3 RBC 3.91 L Hgb 12.2 L Hct 36.3 L MCV 92.7 MCH 31.2 MCHC 33.6 RDW 15.1 H Plt Count 97 L Neut % (Auto) 79.4 H Lymph % (Auto) 14.7 L [place] % (Auto) 5.1 Eos % (Auto) 0.2 L Baso % (Auto) 0.6 Neut # (Auto) 5000 Lymph # (Auto) 900 L [place] # (Auto) 300 Eos # (Auto) 0 Baso # (Auto) 0 Sodium 140 Potassium 3.3 L Chloride 110 H Carbon Dioxide 27 BUN 18 Creatinine 0.58 L Estimated GFR > 60 BUN/Creatinine Ratio 31.0 H Glucose 86 Calcium 8.3 L Magnesium 1.9 PFSH Medical History Anxiety Arthritis Bilateral thigh pain BPPV (benign paroxysmal positional vertigo) Brain TIA Chicken pox Chickenpox (Unknown) Chronic back pain (1965) Chronic constipation Chronic fatigue (2013) Colon polyps (2009) Coronary artery disease Depression (2014) Erectile dysfunction Foot pain (~2017) Hiatal hernia Hypercholesterolemia Hypertension Mumps Panic attacks Parkinson's disease (2015) Proximal muscle weakness Surgical History Anesthesia History of colonoscopy with polypectomy (11/19/17) History of colonoscopy with polypectomy (2009) History of tonsillectomy and adenoidectomy S/P CABG (coronary artery bypass graft) (06/2003) Status post coronary artery bypass graft Status post tonsillectomy and adenoidectomy Family History Father CAD (coronary artery disease) CVA (cerebral vascular accident) Hypertension Diabetes mellitus Heart attack Brain cancer Mother Hypertension Dementia Grandmother Diabetes mellitus Grandfather No problems noted. Brother No problems noted. Sister No problems noted. Social History household members: spouse Smoking Status: Never smoker alcohol intake: former Discharge Plan Discharge Plan Patient Disposition: SNF Transfer to: [facility] and Healthcare Provider Discharge Comment: Please see discharge summary Discharge orders & Medications Prescriptions: New Eliquis 5 mg Tablet 5 mg PO BID 30 Days Qty: 60 0RF Eliquis 5 mg Tablet 10 mg PO BID 6 Days Qty: 24 0RF amoxicillin-pot clavulanate 875-125 mg tablet 1 tab PO BID 5 Days Qty: 10 0RF Continued donepezil 10 mg tablet 10 mg PO 0900 90 Days 0RF folic acid 400 mcg tablet 0.4 mg PO DAILY 0RF cholecalciferol (vitamin D3) 50 mcg (2,000 unit) capsule 100 mcg PO DAILY 0RF Label Comments: takes 2- 50mcg capsules qam docusate sodium 100 mg capsule 100 mg PO BID Qty: 60 6RF pravastatin 20 mg tablet 20 mg PO BEDTIME Qty: 90 3RF entacapone 200 mg tablet 100 mg PO BID 0RF Label Comments: takes 100mg at 0900 and 100mg at 2100 Rx Instructions: administer at the same time as l-dopa/carbidopa dose omeprazole 20 mg capsule,delayed release(DR/EC) 20 mg PO QAM 0RF aspirin 81 mg Tablet,Chewable 81 mg PO DAILY 0RF cyclobenzaprine 10 mg Tablet 10 mg PO DAILY PRN (Reason: muscle spasms) 0RF tamsulosin 0.4 mg Capsule 0.4 mg PO DAILY 0RF ginkgo biloba 40 mg Capsule 40 mg PO DAILY 0RF Rx Instructions: give with meal/snack mirtazapine 30 mg Tablet 30 mg PO BEDTIME 0RF ipratropium bromide 21 mcg (0.03 %) [place],Non-Aerosol 2 spray INTRANASAL TID 0RF Label Comments: does saline flush in each nostril before medication Rx Instructions: administer into each nostril melatonin 5 mg Tablet 5 mg PO BEDTIME PRN (Reason: Sleep) 0RF lidocaine 4 % Gel 1 applic TOPICAL QD-BID PRN (Reason: bottom sore) 0RF vitamin E 400 unit Capsule 400 unit PO DAILY 0RF carbidopa-levodopa 50-200 mg Tablet Extended Release 1 tab PO BEDTIME 30 Days Qty: 30 0RF carbidopa-levodopa 25-100 mg Tablet 1 tab PO BID@0600,0900 30 Days Qty: 30 0RF carbidopa-levodopa 25-100 mg Tablet 2 tab PO BID@1300,1700 30 Days Qty: 60 0RF citalopram 40 mg tablet 40 mg PO DAILY 30 Days Qty: 30 0RF clonazepam 0.5 mg Tablet 1.5 mg PO BID 7 Days Qty: 42 0RF baclofen 10 mg Tablet 10 mg PO 0900,1300,1700 Qty: 0 0RF Label Comments: takes 0900, 1300, 1700 clonazepam 2 mg Tablet 2 mg PO BID PRN (Reason: Anxiety) 7 Days Qty: 10 0RF dronabinol 2.5 mg Capsule 2.5 mg PO TID 30 Days Qty: 90 0RF Rx Instructions: administer before lunch and evening meal/dinner Follow up/Referrals: Raoul Salguero MD [Primary Care Provider] - Discharge Health Status Precautions: [place] Diet/Activity/Treatments Diet: Diet as Tolerated Liquid consistency: Normal/Thin Food texture: Soft Diet comment: Dysphagia mechanical with thin liquids, high calorie foods recommended. Special Rehabilitation Services Reason for rehabilitation: Recovery r/t decondition Rehab type: Physical therapy, Occupational therapy and Speech therapy Discharge Data Primary Care Provider: Raoul Salguero
[2021-06-28] MEDS: ASPIRIN EC 81 MG TABLET PO (08:01)
[2021-06-28] MEDS: APIXABAN 5 MG TABLET 10 MG PO (08:01)
[2021-06-28] MEDS: CITALOPRAM 10 MG TABLET 40 MG PO (08:01)
[2021-06-28] MEDS: ENTACAPONE 200 MG TABLET 100 MG PO (08:02)
[2021-06-28] MEDS: POTASSIUM CHLORIDE 20 MEQ/15 ML UDC 40 MEQ PO (08:04)
[2021-06-28] MEDS: PANTOPRAZOLE 40 MG VIAL IV (08:17)
[2021-06-28 09:26] VITALS: O2SAT 96
--- NOTE | 2021-06-28 09:27 | PC.NURSE ---
Addendum entered by Brina Cooper R.N. 06/28/21 13:15: Pt DELROY PICC removed intact. Report called to Stephani randall. Transportation for [facility] here to escort to facility. Pt w/ medina cath patnet /intact 600cc clear urine emptied prior to D/C D/C in stable condition Original Note: Pt received discharge orders, will return to [facility] this afternoon.
--- NOTE | 2021-06-28 10:20 | PC.NURSE ---
Patient repositioned with tilt to right side using pillows behind hips and back and to offload heels off bed surface. Mouth swab of water given per request x2. Patient reports comfort at this time.
[2021-06-28 10:42] LABS: COVID19 -Nasal RAPID Negative (Negative)
--- NOTE | 2021-06-28 10:49 | SLP.IPNOTE ---
Attempted to see pt for swallow evaluation. Pt was upright in bed when LINING CLEANER arrived. He stated swallowing is bad and it gets worse every day. Pt refused to participate in oral motor assessment or PO trials, stating please don't push me. Per Dr. Jamil, pt is returning to [facility] at 13:00 today.
--- NOTE | 2021-06-28 11:57 | PT-IP ANOTE ---
Pt sleeping, per RN hold for AM, pt d/c at 1400 to SNF.
--- NOTE | 2021-06-28 13:15 | OT.IPNOTE ---
Able to assist pt to the stand pivot MAX X 2 as pt going to [facility], no charge.
--- NOTE | 2021-06-28 13:40 | CM.DPNOTE ---
DC Note Discharged back to [facility] today; spouse agreeable catastrophe claims supervisor scheduled for 1300, COVID PCR has been updated. Faxed signed med list to [facility] made aware Plan: DC back to [facility] today. Dr Jamil recommends ongoing conversation w/spouse re goals of care hospice; patient's prognosis is poor and is considered a good candidate for hospice JW
== END 2021-06-28 13:18 | DRG 871 ==
LOC: ED 13:44 → AC 18:39
PROVIDERS: Internal Medicine; Admitting Provider Internal Medicine; Emergency Provider Emergency Medicine; PCP Student in an Organized Health Care Education/Training Program; Referring Provider Emergency Medicine; Visit Provider Internal Medicine
DX: A41.9 Sepsis, unspecified organism (principal); R65.21 Severe sepsis with septic shock; G93.41 Metabolic encephalopathy; J69.0 Pneumonitis due to inhalation of food and vomit; E43 Unspecified severe protein-calorie malnutrition; I26.99 Other pulmonary embolism without acute cor pulmonale; Z68.1 Body mass index [BMI] 19.9 or less, adult; G20 Parkinson's disease; F02.80 Dementia in other diseases classified elsewhere, unspecified severity, without behavioral disturbance, psychotic disturbance, mood disturbance, and anxiety; R13.10 Dysphagia, unspecified; E86.1 Hypovolemia; I10 Essential (primary) hypertension; F32.A Depression, unspecified; F41.9 Anxiety disorder, unspecified; I25.10 Atherosclerotic heart disease of native coronary artery without angina pectoris; Z95.1 Presence of aortocoronary bypass graft; Z66 Do not resuscitate; Z79.01 Long term (current) use of anticoagulants; Z20.822 Contact with and (suspected) exposure to COVID-19
CPT/HCPCS: 36415; 36592; 36600; 70450; 70496; 70498; 71045; 71275; 80048; 80053; 80061; 80305; 81001; 82550; 82805; 83036; 83605; 83735; 83880; 84145; 84484; 85025; 85379; 85610; 85730; 86850; 86900; 86901; 87040; 87635; 93005; 93306; 94760; 96361; 96365; 96366; 96367; 96368; 96376; 97162; 97166; 99285; 99291; 99292; C9803; G0378; C9113; J0171; J2270; J2543

== ENCOUNTER 2021-07-07 00:14 | Emergency (ER) | payer MEDICARE, OTHER, SELFPAY ==
[2021-06-26 19:51] VITALS: BMI 16.0
[2021-07-07] VITALS (28 sets, daily range): BP systolic 108–165; BP diastolic 63–85; PULSE 71–112; RESP 17–42; TEMP 36.1; O2SAT 93–100
--- NOTE | 2021-07-07 00:22 | PC.NURSE ---
Pt brought in by ambulance follow an unwitnessed fall around 2330 last night. Pt suffered a small laceration to right forehead, has a hematoma in this area, and has a skin tear to right cheek. Pt has advanced cognitive impairment, which limits neuro/pain/injury exam. Pt BG 124 en route, VSS on RA. [facility], pt is mentating currently at his baseline. No other obvious injuries present on arrival.
--- NOTE | 2021-07-07 00:24 | DI.CT.S_ITS ---
P a ROCEDURE: CT HEAD/BRAIN WO CON INDICATIONS: fall, head injury, on thinners TECHNIQUE: Noncontrast 4.5 mm thick angled axial sections acquired from the foramen magnum to the vertex, with coronal and sagittal reformats. For radiation dose reduction, the following was used: automated exposure control, adjustment of mA and/or kV according to patient size. COMPARISON: [facility], CT, CT HEAD/BRAIN WO CON, 01/22/2020, 4:05. FINDINGS: Image quality: Excellent. CSF spaces: Basal cisterns are patent. There is mild cerebral volume loss, with resultant ventricular and sulcal prominence. Brain: There is a slightly hyperdense subdural hematoma along the left frontal and parietal lobes centered at the cerebral convexity superiorly. This measures up to approximately 1.0 cm in thickness. There is associated mild rightward midline shift of approximately 0.4 cm. A small right subdural hematoma is also demonstrated along the frontal, parietal, and temporal lobes. This measures up to approximately 0.5 cm in thickness. There is minimal indistinct high attenuation along the left frontal lobe sulcus which may represent a small amount of subarachnoid hemorrhage as well. There are subcortical, periventricular and deep white matter hypodensities consistent with chronic small vessel ischemic changes. The matthews-white matter junction appears preserved. There is intracranial internal carotid artery atherosclerosis. Skull and face: Calvarium and visualized facial bones appear intact. There is soft tissue swelling in the left frontal scalp region with no associated fracture. . Sinuses: Visualized sinuses and mastoids are clear. IMPRESSION: 1. Bilateral subdural hematomas, left greater than right, with associated mild rightward shift as described. Findings discussed with Dr. Frausto on 07/07/2021 at 1:19 a.m.. 2. Mild cerebral volume loss and chronic white matter small vessel ischemic changes. Dictated by: Elder Carrizales M.D. on 07/07/2021 at 1:18 Approved by: Elder Carrizales M.D. on 07/07/2021 at 1:26
--- NOTE | 2021-07-07 00:24 | DI.CT.S_ITS ---
PROCEDURE: CT CERVICAL SPINE WO CON INDICATIONS: fall with neck pain TECHNIQUE: Noncontrast 3 mm thick sections acquired from the skull base to the T4 level. Sagittal and coronal reformats were then constructed. For radiation dose reduction, the following was used: automated exposure control, adjustment of mA and/or kV according to patient size. COMPARISON: None. FINDINGS: Image quality: There is motion artifact limiting evaluation. Bones: No definite fracture or subluxation in the cervical spine with evaluation limited by motion artifact. Specifically, there is markedly limited evaluation of the skull base. There is mild degenerative disc disease in the mid and lower cervical spine. There is also mild multilevel facet arthropathy.. Visualized superior ribs are intact. Soft tissues: Prevertebral soft tissues are normal in thickness. No paravertebral hematomas. No apical pneumothoraces. IMPRESSION: 1. No definite fracture or subluxation, with evaluation limited due to motion artifact. Dictated by: Elder Carrizales M.D. on 07/07/2021 at 1:27 Approved by: Elder Carrizales M.D. on 07/07/2021 at 1:30
--- NOTE | 2021-07-07 00:24 | DI.RAD.S_ITS ---
PROCEDURE: XR CHEST 1V INDICATIONS: fall with weakness TECHNIQUE: One view of the chest was acquired. COMPARISON: [facility], , CHEST 2 VIEW, 10/06/2008, 15:28. [facility], , XR CHEST FOR PICC 1V, 06/26/2021, 12:13. FINDINGS: Surgical changes and devices: Postsurgical changes redemonstrated in the mediastinum.. Lungs and pleura: The left lateral costophrenic angle and right lateral costophrenic angle are incompletely included on the current study. Mediastinum: Mediastinal contours appear normal. Heart size is normal. Bones and chest wall: No suspicious bony lesions. Overlying soft tissues appear unremarkable. IMPRESSION: 1. No definite acute cardiopulmonary disease. Dictated by: Elder Carrizales M.D. on 07/07/2021 at 1:36 Approved by: Elder Carrizales M.D. on 07/07/2021 at 1:38
--- NOTE | 2021-07-07 00:26 | PC.NURSE ---
Pt Pupils 2mm, difficult to assess reaction to light.
[2021-07-07 00:50] LABS: COVID19 -Nasal RAPID Negative (Negative)
[2021-07-07 00:51] LABS: INR 1.3 (0.9-1.3); Prothrombin Time 14.1 SECONDS (10.1-12.7)
[2021-07-07 00:57] LABS: Alanine Aminotransferase 9 IU/L (<50); Albumin 3.5 g/dL (3.5-5.0); Albumin Globulin Ratio 1.5 (1.0-2.8); Alkaline Phosphatase 39 U/L (38-126); Aspartate Aminotransferase 31 IU/L (17-59); BUN Creatinine Ratio 26.1 (6-22); Bilirubin Total 1.1 mg/dL (0.2-1.3); Blood Urea Nitrogen 18 mg/dL (9-20); Carbon Dioxide 37 mmol/L (22-32); Chloride 102 mmol/L (98-107); Creatine Kinase 28 U/L (55-170); Estimated Glomerular Filt Rate > 60 mL/min (>60); Globulin 2.3 g/dL (1.7-4.1); Glucose 106 mg/dL (80-110); HEMOLYSIS < 15 (0-50); Potassium 3.7 mmol/L (3.4-5.1); Sodium 140 mmol/L (137-145); Total Protein 5.8 g/dL (6.3-8.2)
[2021-07-07 01:05] LABS: Hematocrit 38.5 % (41-53); Hemoglobin 13.1 g/dL (13.5-17.5); Mean Corpuscular HGB Conc 34.1 % (30-36); Mean Corpuscular Hemoglobin 31.5 PG (26-34); Mean Corpuscular Volume 92.4 fL (80-100); Platelet Count 149 X10^3/uL (150-400); Red Blood Cell Count 4.17 X10^6/uL (4.5-5.9); Red Cell Distribution Width 14.9 % (11.6-14.8); White Blood Cell Count 4.9 X10^3/uL (4.5-11.0)
[2021-07-07 01:06] LABS: Add Manual Diff / Slide Review YES
[2021-07-07 01:07] LABS: Troponin I 0.036 ng/mL (0.01-0.034)
--- NOTE | 2021-07-07 02:08 | PC.NURSE ---
Provider in speaking with pt and his , Anjel, at bedside regarding pt head CT. Pt attempting repeatedly to get out of bed. Pt verbally aggressive, screaming out repeatedly and frequently Goddamn it and other garbled speech. Pt at bedside attempting to comfort and relax pt. Pt repositioned in bed with help of 2 staff.
[2021-07-07] MEDS: dexmedeTOMIDine in 0.9 % NaCL 400 MCG/100 ML PLAST..BAG IV (02:32)
[2021-07-07 02:37] LABS: Neutrophils Absolute Manual 2597 /uL (3000-5900); Total Cells Counted 100
[2021-07-07 02:38] LABS: Anisocytosis 1+
--- NOTE | 2021-07-07 02:49 | PC.NURSE ---
Precedex infusion initiated through new 22g PIV established at this time. Pt prior 20g AC IV was getting kinked and not flowing adequately. Pt still verbally agitated and frequently moving his legs over the siderails, but pt at bedside to prevent him from moving further or sitting up. Pt unable to follow directions, but per , pt is still at his baseline mental status.
--- NOTE | 2021-07-07 03:51 | ED.FALL ---
HPI - Fall <Carlos A Frausto DO - Last Filed: 07/08/21 05:47> General Chief Complaint: Fall Stated Complaint: Fall on thinners with head lac Time Seen by Provider: 07/07/21 00:24 Source: EMS Mode of arrival: EMS History of Present Illness HPI Narrative: 81-year-old male nonsmoker with history of dementia, Parkinson's, recent admission for weakness, small pulmonary emboli on anticoagulation presents by EMS for evaluation of an unwitnessed fall out of bed. EMS arrived to find him on the ground with a large hematoma on the left side of his head and oozing from the wounds. There is no report of loss of consciousness, vomiting or other injury. Is typically confused and end-stage Parkinson's, however is able to respond to questions, his behavior tonight is a departure from his baseline. He is on anticoagulation and given his injury he is activated as a modified trauma Related Data Home Medications Medication Instructions Recorded Confirmed donepezil 10 mg tablet 10 mg PO 0900 90 Days tab 01/13/18 06/27/21 cholecalciferol (vitamin D3) 50 100 mcg PO DAILY 12/02/19 06/27/21 mcg (2,000 unit) capsule folic acid 400 mcg tablet 0.4 mg PO DAILY 12/02/19 06/27/21 omeprazole 20 mg capsule,delayed 20 mg PO QAM 03/03/21 06/27/21 release entacapone 200 mg tablet 100 mg PO BID tab 03/20/21 06/27/21 aspirin 81 mg chewable tablet 81 mg PO DAILY 06/07/21 06/27/21 cyclobenzaprine 10 mg tablet 10 mg PO DAILY PRN 06/07/21 06/27/21 ginkgo biloba 40 mg capsule 40 mg PO DAILY 06/07/21 06/27/21 ipratropium bromide 21 mcg (0.03 2 spray INTRANASAL TID 06/07/21 06/26/21 %) nasal spray lidocaine 4 % topical gel 1 applic TOPICAL QD-BID PRN 06/07/21 06/27/21 melatonin 5 mg tablet 5 mg PO BEDTIME PRN 06/07/21 06/27/21 mirtazapine 30 mg tablet 30 mg PO BEDTIME 06/07/21 06/27/21 tamsulosin 0.4 mg capsule 0.4 mg PO DAILY 06/07/21 06/27/21 vitamin E 400 unit capsule 400 unit PO DAILY 06/07/21 06/27/21 Previous Rx's Medication Instructions Recorded docusate sodium 100 mg capsule 100 mg PO BID #60 cap 04/05/21 pravastatin 20 mg tablet 20 mg PO BEDTIME #90 tab 04/20/21 baclofen 10 mg tablet 10 mg PO 0900,1300,1700 #0 tab 06/11/21 carbidopa 25 mg-levodopa 100 mg 1 tab PO BID@0600,0900 30 Days #30 06/11/21 tablet tab carbidopa 25 mg-levodopa 100 mg 2 tab PO BID@1300,1700 30 Days #60 06/11/21 tablet tab carbidopa ER 50 mg-levodopa 200 mg 1 tab PO BEDTIME 30 Days #30 tab 06/11/21 tablet,extended release citalopram 40 mg tablet 40 mg PO DAILY 30 Days #30 tab 06/11/21 clonazepam 0.5 mg tablet 1.5 mg PO BID 7 Days #42 tab 06/11/21 clonazepam 2 mg tablet 2 mg PO BID PRN 7 Days #10 tab 06/11/21 dronabinol 2.5 mg capsule 2.5 mg PO TID 30 Days #90 cap 06/11/21 apixaban 5 mg tablet (Eliquis) 5 mg PO BID 30 Days #60 tab 06/28/21 Allergies Allergy/AdvReac Type Severity Reaction Status Date / Time haloperidol [From Haldol] AdvReac Severe dystonia Verified 06/07/21 21:16 metoclopramide AdvReac Severe dystonia Verified 06/07/21 21:16 Phenothiazines AdvReac Severe dystonia Verified 06/07/21 21:16 onion AdvReac Intermediate Heartburn Verified 06/07/21 21:16 Review of Systems <Carlos A Frausto DO - Last Filed: 07/08/21 05:47> Review of Systems ROS Unobtainable: Unobtainable due to mental status/LOC Patient History <Carlos A Frausto DO - Last Filed: 07/08/21 05:47> Medical History Anxiety Arthritis Bilateral thigh pain BPPV (benign paroxysmal positional vertigo) Brain TIA Chicken pox Chickenpox (Unknown) Chronic back pain (1965) Chronic constipation Chronic fatigue (2014) Colon polyps (2010) Coronary artery disease Depression (2015) Erectile dysfunction Foot pain (~2017) Hiatal hernia Hypercholesterolemia Hypertension Mumps Panic attacks Parkinson's disease (2015) Proximal muscle weakness Surgical History Anesthesia History of colonoscopy with polypectomy (11/19/17) History of colonoscopy with polypectomy (2009) History of tonsillectomy and adenoidectomy S/P CABG (coronary artery bypass graft) (06/2003) Status post coronary artery bypass graft Status post tonsillectomy and adenoidectomy Family History Father CAD (coronary artery disease) CVA (cerebral vascular accident) Hypertension Diabetes mellitus Heart attack Brain cancer Mother Hypertension Dementia Grandmother Diabetes mellitus Grandfather No problems noted. Brother No problems noted. Sister No problems noted. Social History household members: spouse Smoking Status: Never smoker alcohol intake: former Smoking Status: Never smoker alcohol intake frequency: 0-2 drinks per day Substance Use Type: does not use Exam <Carlos A Frausto DO - Last Filed: 07/08/21 05:47> Narrative Exam Narrative: GENERAL: [81] year old patient appears stated age. Well-developed patient,confused, agitated. GCS 14 HEAD: Large left parietal hematoma, oozing blood, but no active bleeding from wound requiring repair. NO obvious depressed skull fracture EYES: Pupils equal round and reactive.No hyphema Extraocular motions intact. No scleral icterus. No injection or drainage. ENT: Nose without bleeding, purulent drainage. No nasal septal hematoma Throat without erythema, tonsillar hypertrophy or exudate. Airway patent. NECK: Trachea midline. Non tender CARDIOVASCULAR: Regular rate and rhythm without murmurs, gallops, or rubs. RESPIRATORY: Clear to auscultation. Breath sounds equal bilaterally. No wheezes, rales, or rhonchi. GASTROINTESTINAL: Abdomen soft, non-tender, nondistended. EXTREMITIES: No edema or joint tenderness. BACK: Nontender without deformity or crepitance. No flank tenderness. NEURO: Awake. SKIN: No rash or erythema of visible areas Initial Vital Signs Initial Vital Signs: Vital Signs Pulse Rate 71 07/07/21 00:17 Respiratory Rate 24 07/07/21 00:17 Blood Pressure 108/63 07/07/21 00:17 Pulse Oximetry 100 07/07/21 00:17 <Larissa Riso, DO - Last Filed: 07/07/21 15:53> Initial Vital Signs Initial Vital Signs: Vital Signs Pulse Rate 71 07/07/21 00:17 Respiratory Rate 24 07/07/21 00:17 Blood Pressure 108/63 07/07/21 00:17 Pulse Oximetry 100 07/07/21 00:17 Course <Carlos A Frausto, DO - Last Filed: 07/08/21 05:47> Orders Ordered: Discontinued Medications Haloperidol (Haloperidol 5 Mg/Ml Vial) 2 mg IV NOW ONE Stop: 07/07/21 02:09 Last Admin: 07/07/21 02:10 Dose: Not Given Documented by: [email or web address] dexmedeTOMIDine in 0.9 % NaCL (Precedex) 400 mcg in 100 mls @ 2.25 mls/hr IV TITRATE PHANI; Protocol Last Titration: 07/07/21 07:05 Dose: 0 mcg/kg/hr, 0 mls/hr Documented by: Titration: 07/07/21 06:58 Dose: 0 mcg/kg/hr, 0 mls/hr Documented by: [email or web address] Admin: 07/07/21 02:32 Dose: 0.2 mcg/kg/hr, 2.25 mls/hr Documented by: [email or web address] Reevaluation(s) Reevaluation #1: [id number] - patient has been off precedex for some time now. He is not responding to verbal or even noxious stimuli. Guarding airway, pulse is present. Calling again. Consultations Consultation #1: at bedside. She confirms that patient is DNR and does not want any invasive procedures or surgeries and would not want him to be transferred to [facility]. Additionally we discussed administration of a medications such as Kcentra and she states that she would prefer to not give that at this time. We have discussed other options and agree to keep him in the emergency department for few hours, attempt to keep him comfortable and repeat imaging as well as consult with Neurosurgery at [facility] to get a better sense of big picture Vital Signs Vital signs: Vital Signs - 8 hr 07/07/21 07:53 07/07/21 08:00 07/07/21 08:30 Pulse Rate 82 80 84 Respiratory Rate 30 H 19 20 Blood Pressure 165/79 H 158/72 H 147/70 H Pulse Oximetry 100 100 100 07/07/21 09:00 07/07/21 09:30 07/07/21 10:00 Pulse Rate 84 96 H 87 Respiratory Rate 21 23 22 Blood Pressure 146/70 H 145/73 H 144/69 H Pulse Oximetry 100 100 100 07/07/21 10:30 07/07/21 11:00 07/07/21 11:30 Pulse Rate 85 93 H 82 Respiratory Rate 21 22 17 Blood Pressure 143/68 H 147/71 H 133/65 Pulse Oximetry 100 100 99 07/07/21 12:00 07/07/21 12:30 07/07/21 13:00 Pulse Rate 83 100 H 97 H Respiratory Rate 23 22 25 H Blood Pressure 155/73 H 146/74 H 134/66 Pulse Oximetry 100 100 100 07/07/21 13:30 07/07/21 14:00 07/07/21 14:30 Pulse Rate 112 H 96 H 88 Respiratory Rate 21 23 Blood Pressure 147/74 H 138/65 Pulse Oximetry 100 98 93 07/07/21 15:00 Pulse Rate 91 H Respiratory Rate Blood Pressure Pulse Oximetry 95 <Larissa Rios, DO - Last Filed: 07/07/21 15:53> Orders Ordered: Discontinued Medications Haloperidol (Haloperidol 5 Mg/Ml Vial) 2 mg IV NOW ONE Stop: 07/07/21 02:09 Last Admin: 07/07/21 02:10 Dose: Not Given Documented by: [email or web address] dexmedeTOMIDine in 0.9 % NaCL (Precedex) 400 mcg in 100 mls @ 2.25 mls/hr IV TITRATE PHANI; Protocol Last Titration: 07/07/21 07:05 Dose: 0 mcg/kg/hr, 0 mls/hr Documented by: Titration: 07/07/21 06:58 Dose: 0 mcg/kg/hr, 0 mls/hr Documented by: [email or web address] Admin: 07/07/21 02:32 Dose: 0.2 mcg/kg/hr, 2.25 mls/hr Documented by: [email or web address] Vital Signs Vital signs: Vital Signs - 8 hr 07/07/21 07:53 07/07/21 08:00 07/07/21 08:30 Pulse Rate 82 80 84 Respiratory Rate 30 H 19 20 Blood Pressure 165/79 H 158/72 H 147/70 H Pulse Oximetry 100 100 100 07/07/21 09:00 07/07/21 09:30 07/07/21 10:00 Pulse Rate 84 96 H 87 Respiratory Rate 21 23 22 Blood Pressure 146/70 H 145/73 H 144/69 H Pulse Oximetry 100 100 100 07/07/21 10:30 07/07/21 11:00 07/07/21 11:30 Pulse Rate 85 93 H 82 Respiratory Rate 21 22 17 Blood Pressure 143/68 H 147/71 H 133/65 Pulse Oximetry 100 100 99 07/07/21 12:00 07/07/21 12:30 07/07/21 13:00 Pulse Rate 83 100 H 97 H Respiratory Rate 23 22 25 H Blood Pressure 155/73 H 146/74 H 134/66 Pulse Oximetry 100 100 100 07/07/21 13:30 07/07/21 14:00 07/07/21 14:30 Pulse Rate 112 H 96 H 88 Respiratory Rate 21 23 Blood Pressure 147/74 H 138/65 Pulse Oximetry 100 98 93 07/07/21 15:00 Pulse Rate 91 H Respiratory Rate Blood Pressure Pulse Oximetry 95 MDM - Fall <Carlos A Frausto, DO - Last Filed: 07/08/21 05:47> Lab Data Result diagrams: 07/07/21 00:30 07/07/21 00:30 Labs: Lab Results 07/07/21 07/07/21 07/07/21 Range/Units 00:29 00:30 00:30 WBC 4.9 (4.5-11.0) X10^3/uL RBC 4.17 L (4.5-5.9) X10^6/uL Hgb 13.1 L (13.5-17.5) g/dL Hct 38.5 L (41-53) % MCV 92.4 (80-100) fL MCH 31.5 (26-34) PG MCHC 34.1 (30-36) % RDW 14.9 H (11.6-14.8) % Plt Count 149 L (150-400) X10^3/uL Neut % (Auto) Not Reportable Lymph % (Auto) Not Reportable [place] % (Auto) Not Reportable Eos % (Auto) Not Reportable Baso % (Auto) Not Reportable Lymph # (Auto) Not Reportable [place] # (Auto) Not Reportable Baso # (Auto) Not Reportable Total Counted 100 Seg Neutrophils % 53.0 (38-70) % Lymphocytes % (Manual) 34.0 (25-45) % Atypical Lymphs % 8.0 H ( - 0) % Monocytes % (Manual) 4.0 (2-11) % Basophils % (Manual) 1.0 (0-1) % Neutrophils # (Manual) 2597 L (2922-9789) /uL RBC Morphology See below Anisocytosis 1+ H PT 14.1 H (10.1-12.7) SECONDS INR 1.3 (0.9-1.3) Sodium (137-145) mmol/L Potassium (3.4-5.1) mmol/L Chloride (98-107) mmol/L Carbon Dioxide (22-32) mmol/L BUN (9-20) mg/dL Creatinine (0.66-1.25) mg/dL Estimated GFR (>60) mL/min BUN/Creatinine Ratio (6-22) Glucose (80-110) mg/dL Calcium (8.4-10.2) mg/dL Total Bilirubin (0.2-1.3) mg/dL AST (17-59) IU/L ALT (<50) IU/L Alkaline Phosphatase (38-126) U/L Total Creatine Kinase (55-170) U/L CK-MB (CK-2) CK-MB (CK-2) Rel Index Troponin I (0.01-0.034) ng/mL Total Protein (6.3-8.2) g/dL Albumin (3.5-5.0) g/dL Globulin (1.7-4.1) g/dL Albumin/Globulin Ratio (1.0-2.8) SARS-CoV-2 (PCR) Negative (Negative) 07/07/21 Range/Units 00:30 WBC (4.5-11.0) X10^3/uL RBC (4.5-5.9) X10^6/uL Hgb (13.5-17.5) g/dL Hct (41-53) % MCV (80-100) fL MCH (26-34) PG MCHC (30-36) % RDW (11.6-14.8) % Plt Count (150-400) X10^3/uL Neut % (Auto) Lymph % (Auto) [place] % (Auto) Eos % (Auto) Baso % (Auto) Lymph # (Auto) [place] # (Auto) Baso # (Auto) Total Counted Seg Neutrophils % (38-70) % Lymphocytes % (Manual) (25-45) % Atypical Lymphs % ( - 0) % Monocytes % (Manual) (2-11) % Basophils % (Manual) (0-1) % Neutrophils # (Manual) (6270-1962) /uL RBC Morphology Anisocytosis PT (10.1-12.7) SECONDS INR (0.9-1.3) Sodium 140 (137-145) mmol/L Potassium 3.7 (3.4-5.1) mmol/L Chloride 102 (98-107) mmol/L Carbon Dioxide 37 H (22-32) mmol/L BUN 18 (9-20) mg/dL Creatinine 0.69 (0.66-1.25) mg/dL Estimated GFR > 60 (>60) mL/min BUN/Creatinine Ratio 26.1 H (6-22) Glucose 106 (80-110) mg/dL Calcium 9.0 (8.4-10.2) mg/dL Total Bilirubin 1.1 (0.2-1.3) mg/dL AST 31 (17-59) IU/L ALT 9 (<50) IU/L Alkaline Phosphatase 39 (38-126) U/L Total Creatine Kinase 28 L (55-170) U/L CK-MB (CK-2) TNP CK-MB (CK-2) Rel Index TNP Troponin I 0.036 H (0.01-0.034) ng/mL Total Protein 5.8 L (6.3-8.2) g/dL Albumin 3.5 (3.5-5.0) g/dL Globulin 2.3 (1.7-4.1) g/dL Albumin/Globulin Ratio 1.5 (1.0-2.8) SARS-CoV-2 (PCR) (Negative) Imaging Data CT scan - head: Radiologist's Impression: interval change in SDH, now 1.3cm with more midline shift <Larissa Rios, DO - Last Filed: 07/07/21 15:53> Lab Data Labs: Lab Results 07/07/21 07/07/21 07/07/21 Range/Units 00:29 00:30 00:30 WBC 4.9 (4.5-11.0) X10^3/uL RBC 4.17 L (4.5-5.9) X10^6/uL Hgb 13.1 L (13.5-17.5) g/dL Hct 38.5 L (41-53) % MCV 92.4 (80-100) fL MCH 31.5 (26-34) PG MCHC 34.1 (30-36) % RDW 14.9 H (11.6-14.8) % Plt Count 149 L (150-400) X10^3/uL Neut % (Auto) Not Reportable Lymph % (Auto) Not Reportable [place] % (Auto) Not Reportable Eos % (Auto) Not Reportable Baso % (Auto) Not Reportable Lymph # (Auto) Not Reportable [place] # (Auto) Not Reportable Baso # (Auto) Not Reportable Total Counted 100 Seg Neutrophils % 53.0 (38-70) % Lymphocytes % (Manual) 34.0 (25-45) % Atypical Lymphs % 8.0 H ( - 0) % Monocytes % (Manual) 4.0 (2-11) % Basophils % (Manual) 1.0 (0-1) % Neutrophils # (Manual) 2597 L (6717-1186) /uL RBC Morphology See below Anisocytosis 1+ H PT 14.1 H (10.1-12.7) SECONDS INR 1.3 (0.9-1.3) Sodium (137-145) mmol/L Potassium (3.4-5.1) mmol/L Chloride (98-107) mmol/L Carbon Dioxide (22-32) mmol/L BUN (9-20) mg/dL Creatinine (0.66-1.25) mg/dL Estimated GFR (>60) mL/min BUN/Creatinine Ratio (6-22) Glucose (80-110) mg/dL Calcium (8.4-10.2) mg/dL Total Bilirubin (0.2-1.3) mg/dL AST (17-59) IU/L ALT (<50) IU/L Alkaline Phosphatase (38-126) U/L Total Creatine Kinase (55-170) U/L CK-MB (CK-2) CK-MB (CK-2) Rel Index Troponin I (0.01-0.034) ng/mL Total Protein (6.3-8.2) g/dL Albumin (3.5-5.0) g/dL Globulin (1.7-4.1) g/dL Albumin/Globulin Ratio (1.0-2.8) SARS-CoV-2 (PCR) Negative (Negative) 07/07/21 Range/Units 00:30 WBC (4.5-11.0) X10^3/uL RBC (4.5-5.9) X10^6/uL Hgb (13.5-17.5) g/dL Hct (41-53) % MCV (80-100) fL MCH (26-34) PG MCHC (30-36) % RDW (11.6-14.8) % Plt Count (150-400) X10^3/uL Neut % (Auto) Lymph % (Auto) [place] % (Auto) Eos % (Auto) Baso % (Auto) Lymph # (Auto) [place] # (Auto) Baso # (Auto) Total Counted Seg Neutrophils % (38-70) % Lymphocytes % (Manual) (25-45) % Atypical Lymphs % ( - 0) % Monocytes % (Manual) (2-11) % Basophils % (Manual) (0-1) % Neutrophils # (Manual) (2679-3874) /uL RBC Morphology Anisocytosis PT (10.1-12.7) SECONDS INR (0.9-1.3) Sodium 140 (137-145) mmol/L Potassium 3.7 (3.4-5.1) mmol/L Chloride 102 (98-107) mmol/L Carbon Dioxide 37 H (22-32) mmol/L BUN 18 (9-20) mg/dL Creatinine 0.69 (0.66-1.25) mg/dL Estimated GFR > 60 (>60) mL/min BUN/Creatinine Ratio 26.1 H (6-22) Glucose 106 (80-110) mg/dL Calcium 9.0 (8.4-10.2) mg/dL Total Bilirubin 1.1 (0.2-1.3) mg/dL AST 31 (17-59) IU/L ALT 9 (<50) IU/L Alkaline Phosphatase 39 (38-126) U/L Total Creatine Kinase 28 L (55-170) U/L CK-MB (CK-2) TNP CK-MB (CK-2) Rel Index TNP Troponin I 0.036 H (0.01-0.034) ng/mL Total Protein 5.8 L (6.3-8.2) g/dL Albumin 3.5 (3.5-5.0) g/dL Globulin 2.3 (1.7-4.1) g/dL Albumin/Globulin Ratio 1.5 (1.0-2.8) SARS-CoV-2 (PCR) (Negative) Imaging Data CT scan - head: Radiologist's Impression: interval change in SDH, now 1.3cm with more midline shift Signed Patient: Binu Dominguez MR#: [id number] : 1940 Acct:[id number] Age/Sex: 81 / M Date of Service: 07/07/21 Loc: ED Accession Number: [id number] ?? Procedure: CT head/brain wo con Ordering Provider: Carlos A Frausto D.O. ROCEDURE:? CT HEAD/BRAIN WO CON ? INDICATIONS:? fall, head injury, on thinners ? TECHNIQUE:? Noncontrast 4.5 mm thick angled axial sections acquired from the foramen magnum to the vertex, with coronal and sagittal reformats.? For radiation dose reduction, the following was used:? automated exposure control, adjustment of mA and/or kV according to patient size.? ? COMPARISON:? [facility], CT, CT HEAD/BRAIN WO CON, 01/22/2020, 4:05. ? FINDINGS:? Image quality:? Excellent.? ? CSF spaces:? Basal cisterns are patent.? There is mild cerebral volume loss, with resultant ventricular and sulcal prominence.? ? Brain:? There is a slightly hyperdense subdural hematoma along the left frontal and parietal lobes centered at the cerebral convexity superiorly.? This measures up to approximately 1.0 cm in thickness.? There is associated mild rightward midline shift of approximately 0.4 cm.? A small right subdural hematoma is also demonstrated along the frontal, parietal, and temporal lobes.? This measures up to approximately 0.5 cm in thickness.? There is minimal indistinct high attenuation along the left frontal lobe sulcus which may represent a small amount of subarachnoid hemorrhage as well. ? There are subcortical, periventricular and deep white matter hypodensities consistent with chronic small vessel ischemic changes.? The matthews-white matter junction appears preserved.? There is intracranial internal carotid artery atherosclerosis.? ? Skull and face:? Calvarium and visualized facial bones appear intact.? There is soft tissue swelling in the left frontal scalp region with no associated fracture. . Sinuses:? Visualized sinuses and mastoids are clear.? ? IMPRESSION:? ? 1. Bilateral subdural hematomas, left greater than right, with associated mild rightward shift as described. ? Findings discussed with Dr. Frausto on 07/07/2021 at 1:19 a.m.. ? ? 2. Mild cerebral volume loss and chronic white matter small vessel ischemic changes.? ? Dictated by: Elder Carrizales M.D. on 07/07/2021 at 1:18 ? ? Approved by: Elder Carrizales M.D. on 07/07/2021 at 1:26 ? CT HEad #2: Radiologist's Impression: CT Scan Report Signed Patient: Binu Dominguez MR#: [id number] : 1940 Acct:[id number] Age/Sex: 81 / M Date of Service: 07/07/21 Loc: ED Accession Number: [id number] ?? Procedure: CT head/brain wo con Ordering Provider: Carlos A Frausto D.O. PROCEDURE:? CT HEAD/BRAIN WO CON ? INDICATIONS:? SDH in on initial head Ct ? TECHNIQUE:? Noncontrast 5 mm thick angled axial sections acquired from the foramen magnum to the vertex, with coronal and sagittal reformats.? For radiation dose reduction, the following was used:? automated exposure control, adjustment of mA and/or kV according to patient size.? ? COMPARISON:? [facility], CT, CT HEAD/BRAIN WO CON, 07/07/2021, 0:38. ? FINDINGS: ? Cerebrum, Cerebellum and Brainstem:? Left-sided subdural hematoma has significantly increased in the interval, now measures up to 1.6 cm in thickness, previously 0.8 cm. This results in 1.3 cm midline shift, previously 0.4 cm.? Right-sided subdural hematoma remains stable at 3 mm in thickness.? There is effacement of the right perimesencephalic cistern.? No evidence of foraminal herniation.? Left frontal subarachnoid hemorrhage is slightly increased from the prior as well. ? Ventricles:? Left lateral ventricle is effaced, and there is interval enlargement of the right lateral ventricle, particularly the trigone.? Third ventricle decompressed.? No significant transependymal migration of CSF ? Skull Base:? The bony sella, pituitary gland and infundibulum are unremarkable.? Clivus and craniovertebral relationships are appropriate.? ? Calvarium and Scalp:? Left frontal scalp hematoma has enlarged in the interval.? The underlying calvarium is intact without skull fracture or lytic lesion. ? Paranasal Sinuses:? Unremarkable as visualized. ? Mastoids:? Unremarkable as visualized.? No mastoid effusion present. ? IMPRESSION:? ? 1. Enlarging acute left subdural hematoma with midline shift, increased from the prior. ? 2. Slight interval enlargement of the right lateral ventricle without transependymal migration of CSF reflects impending hydrocephalus. ? 3. Enlarging left frontal subarachnoid hemorrhage and left scalp hematoma.? Stable thin right subdural hematoma.? ? Note:? Final report is concordant with preliminary interpretation by [employer] ? Approved by: Favio Andrew M.D. on 07/07/2021 at 8:03? [facility] Narrative Medical decision making narrative: [place]-Patient signed out to me by Dr. Frausto. Has intracranial bleed on Eliquis. He is to be made comfort measures only no aggressive measures to be taken. He was on Precedex to help with his sun downing and Parkinson's. Precedex was stopped just before 7:00 a.m.. Patient is sleeping minimally responsive appears comfortable at this time. Patient continues to be unresponsive. He has had 2 CTs 1 which shows an expanding subdural hematoma. I personally have called [facility] they state that he is to be admitted to hospice on Friday a bed is be delivered to the house today unfortunately there is no in to take admission over the weekend. They also only have care 1-2 days a week and are not 24/7 care. thinks that they may need more care than this. ED social Work has been involved in care. Patient can go back to [facility] on comfort measures and hospice measures only. They will make different arrangements as needed. Discharge Plan Departure Patient Disposition: Home Clinical Impression: Acute subdural hematoma Instructions: Subdural Hematoma Activity Restrictions/Additional Instructions: COMFORT CARE ONLY Expanding subdural hematoma on Eliquis Patient will need hospice and comfort measures Prescriptions: No Action donepezil 10 mg tablet 10 mg PO 0900 90 Days 0RF folic acid 400 mcg tablet 0.4 mg PO DAILY 0RF cholecalciferol (vitamin D3) 50 mcg (2,000 unit) capsule 100 mcg PO DAILY 0RF Label Comments: takes 2- 50mcg capsules qam docusate sodium 100 mg capsule 100 mg PO BID Qty: 60 6RF pravastatin 20 mg tablet 20 mg PO BEDTIME Qty: 90 3RF entacapone 200 mg tablet 100 mg PO BID 0RF Label Comments: takes 100mg at 0900 and 100mg at 2100 Rx Instructions: administer at the same time as l-dopa/carbidopa dose Eliquis 5 mg Tablet 5 mg PO BID 30 Days Qty: 60 0RF omeprazole 20 mg capsule,delayed release(DR/EC) 20 mg PO QAM 0RF aspirin 81 mg Tablet,Chewable 81 mg PO DAILY 0RF cyclobenzaprine 10 mg Tablet 10 mg PO DAILY PRN (Reason: muscle spasms) 0RF tamsulosin 0.4 mg Capsule 0.4 mg PO DAILY 0RF ginkgo biloba 40 mg Capsule 40 mg PO DAILY 0RF Rx Instructions: give with meal/snack mirtazapine 30 mg Tablet 30 mg PO BEDTIME 0RF ipratropium bromide 21 mcg (0.03 %) [place],Non-Aerosol 2 spray INTRANASAL TID 0RF Label Comments: does saline flush in each nostril before medication Rx Instructions: administer into each nostril melatonin 5 mg Tablet 5 mg PO BEDTIME PRN (Reason: Sleep) 0RF lidocaine 4 % Gel 1 applic TOPICAL QD-BID PRN (Reason: bottom sore) 0RF vitamin E 400 unit Capsule 400 unit PO DAILY 0RF carbidopa-levodopa 50-200 mg Tablet Extended Release 1 tab PO BEDTIME 30 Days Qty: 30 0RF carbidopa-levodopa 25-100 mg Tablet 1 tab PO BID@0600,0900 30 Days Qty: 30 0RF carbidopa-levodopa 25-100 mg Tablet 2 tab PO BID@1300,1700 30 Days Qty: 60 0RF citalopram 40 mg tablet 40 mg PO DAILY 30 Days Qty: 30 0RF clonazepam 0.5 mg Tablet 1.5 mg PO BID 7 Days Qty: 42 0RF baclofen 10 mg Tablet 10 mg PO 0900,1300,1700 Qty: 0 0RF Label Comments: takes 0900, 1300, 1700 clonazepam 2 mg Tablet 2 mg PO BID PRN (Reason: Anxiety) 7 Days Qty: 10 0RF dronabinol 2.5 mg Capsule 2.5 mg PO TID 30 Days Qty: 90 0RF Rx Instructions: administer before lunch and evening meal/dinner Referrals: Raoul Salguero MD [Primary Care Provider] -
--- NOTE | 2021-07-07 04:52 | PC.NURSE ---
Pt currently on precedex. Neuro assessments to be less frequent to promote pt rest as advocated by pt .
--- NOTE | 2021-07-07 06:00 | DI.CT.S_ITS ---
PROCEDURE: CT HEAD/BRAIN WO CON INDICATIONS: SDH in on initial head Ct TECHNIQUE: Noncontrast 5 mm thick angled axial sections acquired from the foramen magnum to the vertex, with coronal and sagittal reformats. For radiation dose reduction, the following was used: automated exposure control, adjustment of mA and/or kV according to patient size. COMPARISON: [facility], CT, CT HEAD/BRAIN WO CON, 07/07/2021, 0:38. FINDINGS: Cerebrum, Cerebellum and Brainstem: Left-sided subdural hematoma has significantly increased in the interval, now measures up to 1.6 cm in thickness, previously 0.8 cm. This results in 1.3 cm midline shift, previously 0.4 cm. Right-sided subdural hematoma remains stable at 3 mm in thickness. There is effacement of the right perimesencephalic cistern. No evidence of foraminal herniation. Left frontal subarachnoid hemorrhage is slightly increased from the prior as well. Ventricles: Left lateral ventricle is effaced, and there is interval enlargement of the right lateral ventricle, particularly the trigone. Third ventricle decompressed. No significant transependymal migration of CSF Skull Base: The bony sella, pituitary gland and infundibulum are unremarkable. Clivus and craniovertebral relationships are appropriate. Calvarium and Scalp: Left frontal scalp hematoma has enlarged in the interval. The underlying calvarium is intact without skull fracture or lytic lesion. Paranasal Sinuses: Unremarkable as visualized. Mastoids: Unremarkable as visualized. No mastoid effusion present. IMPRESSION: 1. Enlarging acute left subdural hematoma with midline shift, increased from the prior. 2. Slight interval enlargement of the right lateral ventricle without transependymal migration of CSF reflects impending hydrocephalus. 3. Enlarging left frontal subarachnoid hemorrhage and left scalp hematoma. Stable thin right subdural hematoma. Note: Final report is concordant with preliminary interpretation by [email or web address] Approved by: Favio Andrew M.D. on 07/07/2021 at 8:03
--- NOTE | 2021-07-07 14:13 | CM.SWNOTE ---
ED Social Work Note: Attending requested assistance with patient who arrived to ED subsequent fall at [facility]. Patient was anticipated to discharge home from [facility] on Friday with [facility] opening services. Attending informed that patient has a brain bleed and attending didn't feel patient could be managed at home unless hospice services were in place 09/09. tea tree farm worker contacted [facility] and inquired of [facility] availability. They will not be able to admit over weekend and would call back on Sunday 07/09 to gather information for suitability of patient for their facility. tea tree farm worker contacted [facility] and spoke with [facility] nursing consultant. Ana indicated that patient is able to return to their facility for comfort care and have hospice services there. Ana indicated she also had concerns, even prior to the brain bleed, about patient discharging home with level of care that is required for patient. Attending notified that patient is able to discharge back to [facility] today with comfort care orders in place. tea tree farm worker talked with patient's spouse who is concerned that the number of medicare A days have and initial appeal was declined. Spouse indicated she plans to do the follow up appeal and will get medical documentation from [facility] once patient is returned there. BLS transportation being set up for patient to discharge to [facility]. Lorenzo SUTTONSW
== END 2021-07-07 15:14 | disposition home or self-care (01) ==
PROVIDERS: Emergency Provider Emergency Medicine; PCP Student in an Organized Health Care Education/Training Program
DX: S06.5X9A Traumatic subdural hemorrhage with loss of consciousness of unspecified duration, initial encounter (principal); G20 Parkinson's disease; Z79.01 Long term (current) use of anticoagulants; W06.XXXA Fall from bed, initial encounter
CPT/HCPCS: 70450; 71045; 72125; 80053; 82550; 84484; 85007; 85025; 85610; 87635; 96365; 96366; 99284; C9803